=== PATIENT | female | born 1940 | race Caucasian/White ===

== ENCOUNTER → 2017-08-16 08:15 | Outpatient (CLI) | payer MEDICARE, SELFPAY ==
--- NOTE | 2017-08-16 08:25 | RAD_ITS ---
STUDY: X-RAY - ESOPHAGUS (BARIUM SWALLOW) WITH FLUOROSCOPY REASON FOR EXAM: Female, 77 years old. Gastroesophageal reflux disease. TECHNIQUE: 24 view(s) of the esophagus were obtained following swallowing of barium. FLUOROSCOPY TIME (if supplied): (0:40) minutes/seconds COMPARISON: None. FINDINGS: There is no demonstrated esophageal foreign body. Mild narrowing of the distal portion of the esophagus. Normal gastroesophageal junction, without a demonstrated hiatal hernia. The 12 mm tablet of barium is trapped at the gastroesophageal junction. There is atherosclerotic calcification of the aortic arch with tortuosity of the descending aorta. Normal visualized pulmonary parenchyma. There are diffuse degenerative changes of the visualized thoracic spine. RAD/Esophagus Only IMPRESSION: Narrowing of the distal portion of the esophagus just proximal to the gastroesophageal junction. The 12 mm tablet of barium is trapped at the gastroesophageal junction. Electronically Signed: Rogelio Oleary MD at 10:45 EDT Tel [phone], Service support ,
== END ==
PROVIDERS: Family Provider Internal Medicine; PCP Internal Medicine; Visit Provider Internal Medicine Gastroenterology
DX: K21.9 Gastro-esophageal reflux disease without esophagitis (principal)
CPT/HCPCS: 74220

== ENCOUNTER → 2017-08-30 07:23 | Outpatient (CLI) | payer MEDICARE, SELFPAY ==
--- NOTE | 2017-08-30 07:00 | MRI_ITS ---
STUDY: MRI LUMBAR SPINE WITHOUT CONTRAST REASON FOR EXAM: Female, 77 years old. Low-back pain and leg pain. TECHNIQUE: Standardized fat and water weighted pulse sequences were obtained in the sagittal and axial planes. COMPARISON: MRI of the lumbar spine dated March 13, 2010. FINDINGS: T12-L1: Normal endplates. Normal disc height, signal and morphology. Normal bilateral facet joints. Normal central canal and bilateral lateral recesses. Normal bilateral intervertebral neural foramina. Normal lumbar lordosis. There is no substantial scoliosis. Normal conus medullaris that terminates at the T12-L1 level. L1-2: There is mild annular disk bulge and osteophyte complex. There is moderate degenerative arthropathy of the facet joints. Bilateral neuroforamina are narrowed without MR evidence for nerve impingement. There is no significant central canal stenosis. L2-3: There is mild annular disk bulge and large osteophyte complex. There is moderate degenerative arthropathy of the RIGHT-sided facet joint and mild degenerative arthropathy of the LEFT-sided facet joint. Bilateral neuroforamina are narrowed without MR evidence for nerve impingement. There is no significant central canal stenosis. L3-4: There is moderate narrowing of the disc. There is annular disc bulge and osteophyte complex. There is moderate degenerative arthropathy of facet joints. Neural foramina are bilaterally narrowed without evidence for nerve impingement. L4-5: There is severe narrowing of the disc. There is a osteophyte complex. There is mild degenerative arthropathy of facet joints. Neural foramina are mildly narrowed without evidence for nerve impingement. L5-S1: There is narrowing of the disc. There is a disc bulge and osteophyte complex. There is mild degenerative arthropathy of facet joints. Neural foramina are narrowed without evidence for nerve impingement. Normal visualized sacral ala. Normal visualized paraspinous soft tissue structures. There are bilateral renal cysts. MRI/Spine Lumbar (Routine) IMPRESSION: Moderately severe multilevel degenerative disc disease and degenerative arthropathy of the lumbar spine with neural foraminal narrowing as described. Appearance is similar to the previous MRI. Electronically Signed: Rosi Valdez MD at 11:36 EDT , Service support ,
--- NOTE | 2017-08-30 07:23 | DT_ITS ---
This patient was seen during an EMR downtime August 29, 2017 - September 05, 2017. This patient may have a combination of paper and electronic documentation or all paper documentation. All documentation is viewable within the e-chart portion of [facility] for each patient visit.
== END ==
PROVIDERS: Family Provider Internal Medicine; PCP Internal Medicine; Visit Provider Anesthesiology Pain Medicine
DX: M54.9 Dorsalgia, unspecified (principal); M79.606 Pain in leg, unspecified
CPT/HCPCS: 72148

== ENCOUNTER → 2017-10-26 13:17 | Outpatient (CLI) | payer MEDICARE, SELFPAY ==
--- NOTE | 2017-10-26 13:22 | RAD_ITS ---
STUDY: X-RAY - CERVICAL SPINE REASON FOR EXAM: Female, 77 years old. Neck pain TECHNIQUE: 3 view(s) of the cervical spine were obtained. 07/25/2012 FINDINGS: Normal anterior atlantoaxial articulation. Normal odontoid process. There is straightening of the normal cervical lordosis. There is multi-level endplate spondylosis. There is multi-level degenerative disc disease with multilevel disc space narrowing. The soft tissue structures are unremarkable. There is no demonstrated fracture of the cervical spine. RAD/Cerv Spine 2 or 3 Views IMPRESSION: Degenerative changes which have progressed since 07/25/2012. No definite acute abnormality. Electronically Signed: Filiberto Mackey MD at 20:02 EDT , Service support ,
== END ==
PROVIDERS: Family Provider Internal Medicine; PCP Internal Medicine; Visit Provider Anesthesiology Pain Medicine
DX: M54.2 Cervicalgia (principal)
CPT/HCPCS: 72040

== ENCOUNTER → 2017-10-27 12:54 | Outpatient (CLI) | payer MEDICARE, SELFPAY | PROVIDERS: Visit Provider Internal Medicine Pulmonary Disease | DX: R05 Cough (principal) ==

== ENCOUNTER → 2017-12-12 11:19 | Outpatient (CLI) | payer MEDICARE, SELFPAY ==
--- NOTE | 2017-12-12 07:55 | PET_ITS ---
EXAMINATION: FDG PET CT INDICATIONS: A 77-year-old female with reported history of carcinoma of the breast presenting for restaging examination and evaluation of esophageal mass formation. COMPARISON EXAMINATION: None available. INDEX LESION SIZE SUV INTERPRETATION Distal esophagus, gastroesophageal junction 12.2 mm (frame 149) 1.9 Quantitative criteria for viable neoplasm are not fulfilled, histopathologic investigation may be indicated TECHNIQUE: Following the intravenous administration of 13.66 mCi of F-18 deoxyglucose via the right hand, multiplanar image acquisitions of the neck, chest, abdomen and pelvis to level of mid thigh, obtained at one hour post radiopharmaceutical administration contemporaneously interpreted with the current CT of the neck, chest, abdomen and pelvis to level of mid thigh, dated 12/12/17 via coregistration reveal: SERUM GLUCOSE LEVEL: 104 mg/dl. HEIGHT: 65 inches. WEIGHT: 269 lbs. FINDINGS: 1. Focal increased glucose metabolism is defined in the region of the distal esophagus, gastroesophageal junction generating a calculated maximum standard uptake value of 1.9. The maximal axial diameter of the corresponding metabolic abnormality on review of CT of the thorax dated 12/12/17 is 12.2 mm (AP). 2. Normal physiologic distribution of the radiopharmaceutical is apparent in the hepatic (4.6) and splenic parenchyma, both renal units, bladder and visualized intestinal tract. There is symmetric and preserved glucose metabolism noted in the visualized portion of the frontal, occipital, temporal and parietal lobes of the cerebral cortex, as well as cerebral hemispheres and basal ganglia. Diffuse intestinal tract activity is noted throughout all four quadrants of the abdominal-pelvic retroperitoneum, mesentery consistent with normal physiologic distribution of the radiopharmaceutical. Prominent glucose concentration is observed in the ascending and descending thoracic, as well as abdominal aorta. There is an increase in FDG concentration noted at the level of the laryngeal structures symmetrically apparent in the true-false vocal cords extending to the arytenoid cartilage and cricopharyngeus musculature most consistent with physiologic distribution of the radiopharmaceutical. Symmetric posterior cervical paravertebral muscle tension artifact is defined. Pertinent CT findings are as follows. CHEST: Bilateral axillary subcentimeter soft tissue densities demonstrate no evidence of increased glucose metabolism. Surgical clip placement appears evident in the left anterior chest wall, breast. Atherosclerotic calcification is defined in the thoracic aorta. The maximal axial diameter of the ascending thoracic aorta is 43.1 mm. Coronary arterial calcification is demonstrated. Mediastinal soft tissue densities are non-glucose avid. A partially-cavitated parenchymal density noted in the left lower posterior lung field demonstrates no evidence of quantitatively significant enhanced glucose metabolism. ABDOMEN AND PELVIS: The gallbladder is surgically absent. Atherosclerotic calcification is defined in the abdominal aorta without evidence of dilatation, aneurysm formation. Pelvic arterial calcification is observed. Right-left inguinal soft tissue densities are ametabolic. Postsurgical changes appear evident in the anterior pelvic wall. Exophytic cyst formation is defined in the bilateral kidneys, the largest of which demonstrates a maximal axial diameter of 27.8 mm (AP). SKELETAL: Degenerative changes defined in the cervical, thoracic and lumbar spine demonstrate no evidence for glucose hypermetabolism. PET/PET/CT Tumor Base -Thigh Init IMPRESSION: 1. Increased glucose concentration observed at the level of the distal esophagus, gastroesophageal junction does not fulfill quantitative criteria for viable neoplasm with single-point technique. If the patient demonstrates an intermediate to high pretest probability of neoplasm, histopathologic analysis is recommended. 2. Anatomic stability may be ensured in the ametabolic partially-cavitated noncalcified parenchymal density left lower posterior hemithorax pulmonary parenchyma, left lower lobe with repeat CT of the thorax in six months. (Joanne, Seminars in Thoracic and Cardiovascular Surgery 14:292, 2002). 3. Prominent glucose concentration observed in the ascending and descending thoracic, as well as abdominal aorta is commensurate with activated leukocytes associated with atherosclerotic plaque formation. (Candace gil al, Clinical Nuclear Medicine 29:93, 2004). Electronic Signature Shane Govea D.O. Electronically Signed: Shane Govea DO at 8:10 EDT Tel , Service support ,
== END ==
PROVIDERS: Family Provider Internal Medicine; PCP Internal Medicine; Visit Provider Internal Medicine Pulmonary Disease
DX: R91.1 Solitary pulmonary nodule (principal); Z85.3 Personal history of malignant neoplasm of breast
CPT/HCPCS: 78815; A9552; A4216

== ENCOUNTER → 2018-01-02 11:47 | Outpatient (CLI) | payer MEDICARE, SELFPAY ==
[2018-01-02 14:03] LABS: Erythrocyte Sedimentation Rate 65 mm/hr (0-30)
[2018-01-02 14:16] LABS: CRP, High Sensitivity Cardiac 5.02 mg/L; Rheumatoid Factor < 10.0 IU/mL (<15)
[2018-01-03 14:36] LABS: ANTINUCLEAR ANTIBODIES DIRECT Negative (Negative)
[2018-01-04 07:35] LABS: Angiotensin Convert Enzyme 30 U/L (14-82)
== END ==
PROVIDERS: Family Provider Internal Medicine; PCP Internal Medicine; Referring Provider Internal Medicine Pulmonary Disease; Visit Provider Internal Medicine Pulmonary Disease
DX: E78.5 Hyperlipidemia, unspecified (principal); R05 Cough
CPT/HCPCS: 36415; 82164; 85652; 86038; 86141; 86431

== ENCOUNTER 2018-04-20 22:50 | Inpatient (IN) | payer MEDICARE, SELFPAY ==
[2018-04-20 22:52] VITALS: BP 115/64; PULSE 119; RESP 16; TEMP 37; O2SAT 95; BMI 43.2
[2018-04-20 23:38] LABS: Hematocrit 39.1 % (37-47); Hemoglobin 12.4 g/dl (12.0-15.0); Mean Corp Hgb Conc 31.7 g/gl (32-36); Mean Corpuscular Hgb 28.5 pg (27.0-32.0); Mean Corpuscular Volume 89.9 fL (81-99); Mean Platelet Vol. 8.7 fl (6.2-12.0); POSITIVE COUNT YES; POSITIVE DIFFERENTIAL YES; POSITIVE MORPHOLOGY YES; Platelet Count 152 K/mm3 (150-450); RBC Distribution Width CV 14.6 % (11.6-14.6); RBC Distribution Width SD 47.3 fl (35.1-43.9); Red Blood Count 4.35 M/mm3 (4.2-5.4)
[2018-04-20 23:39] LABS: Differential Indicated MANUAL DIFF
[2018-04-20 23:44] LABS: Prothrombin Time (Protime)PT. 35.3 SECONDS (11.7-14.9)
[2018-04-20 23:49] LABS: International Normalized Ratio 3.5
[2018-04-20 23:55] LABS: Anion Gap 14 (5-15); BUN 37 mg/dL (7-18); BUN/Creat Ratio 15.8 RATIO (10-20); Calcium,Total 8.8 mg/dL (8.5-10.1); Chloride 102 mmol/L (98-107); Creatinine, Serum 2.34 mg/dL (0.55-1.02); EST Glomerular Filtration Rate 22 mL/min (>60); Est Glom Filt Rate - Afr Amer 26 mL/min (>60); Estimated Creatinine Clearance 18.69 ml/min; Glucose 71 mg/dL (74-106); Sodium Level 137 mmol/L (136-145)
[2018-04-21] VITALS (62 sets, daily range): BP systolic 72–138; BP diastolic 42–97; PULSE 90–112; RESP 12–93; TEMP 36.4–37.4; O2SAT 93–100; BMI 45.7
[2018-04-21] MEDS: Ondansetron 4 MG/2 ML Vial IV (00:05)
[2018-04-21] MEDS: Morphine 4 MG/ML Syringe IV (00:06)
[2018-04-21 00:09] LABS: Eosinophil 1 % (0-5); Lymphocyte 2 % (19-41); Metamyelocyte 3 % (0-1); Monocyte 2 % (0-10); Neutrophil-Band 18 % (0-5); Neutrophil-Segmented 74 % (47-70); Platelet Estimate ADEQUATE (ADEQ); Red Cell Morphology NORM C+C NORMAL (NORM C&C); Total Cells Counted 100 (MANUAL DIFF); Vacuolated Cells 3+
[2018-04-21 00:11] LABS: Absolute Neutrophil Count 3.7 X10^3/uL (2.0-7.7); Neutrophil # 3.68 X10^3/uL (2.7-7.7)
--- NOTE | 2018-04-21 01:30 | ED.VISSUMM ---
- ER Visit Summary Date of Service: 04/21/18 Chief Complaint: Back pain History of Present Illness: The patient is a [address] Anguiano. She reports she has back pain that began yesterday. States that it is an intermittent pain that lasts hours. States sharp pain is 10 out of 10 worsened through 10 currently. Is worsened by nothing including movement. She states that it was relieved by tramadol and sitting in the recliner. No relation to her legs. No numbness or weakness in her legs. No problems with her bowels or her bladder. No groin numbness. Patient denies any fever or chills. She reports she is been nauseated and vomited multiple times since yesterday. States that she is vomited approximately 8 times. No blood or emesis. She denies any abdominal pain. No diarrhea. Her last bowel movement was today. She denies any blood in her stools or black tarry stools. She does report that she has had hematuria and frequency for the past 2 weeks. Physical Examination: Vitals: Stable. Afebrile. General: Well-nourished and well-developed. Head: Normocephalic atraumatic. Neck: Supple, no lymphadenopathy. No JVD. Nontender. Cardiovascular: Regular tachycardic rhythm. No murmurs. Respiratory: No respiratory distress. Clear to auscultation bilaterally. Abdominal: Soft, nontender, nondistended, normal bowel sounds. No guarding, rebound, or peritoneal signs. Back: Nontender. No CVA tenderness. Extremities: Nontender, no edema. Skin: Normal color, no rash. Neurologic: Alert and oriented ?3. Cranial nerves II through XII are intact. Normal strength and sensation. Psych: Normal affect. Test Results: CBC is remarkable for a white count of 5.0 with 74 segmented neutrophils, 18 bands, 2 metamyelocytes, and 2 lymphocytes. Chem-7 is more for BUN of 37 and creatinine 2.34. Glucose is 71. Creatinine has ranged between 1.091.65 in the past. The last was in February 2017 and that time it was 1.09. INR is 3.5. CT flank shows a 6 x 3 mm proximal left ureteral stone with mild hydronephrosis/hydroureter. Chest x-ray shows atelectasis at the left base. Lactic acid is 3.0. Urinalysis shows leukocytes, nitrites, blood, 10-25 white blood cells, 5-10 red blood cells, and 2+ bacteria. Emergency Department Course and Treatment: Patient was given a dose of morphine and Zofran IV. She is resting comfortably. She was unable to produce a urine sample. We did straight catheter with no return of urine. A Sauceda catheter was placed. She was given a 30 cc per per kilo bolus of normal saline. This was 3.5 L. Patient is on BiPAP at night at home. She was placed on BiPAP here and a chest x-ray is obtained. This does not show failure. Patient did not produce a urine sample until approximately 3 L of fluid were in. She was given a dose of Rocephin IV prior to obtaining the urine. When this returned and shows infection she was given a second gram of Rocephin IV. She did not respond to the IV fluids and remained hypotensive. She had a right internal jugular central line placed. She tolerated this well. Chest x-ray shows good placement without pneumothorax. Treatment Plan: The patient was discussed with Dr. Estes and Dr. Willis. She will be admitted to the ICU for further evaluation and treatment. Disposition: Admitted in critical condition. Impression: 1. Left ureterolithiasis. 2. Pyelonephritis. 3. Acute renal insufficiency. 4. Septic shock. 5. Critical care time 45 minutes. 6. Right IJ central line placed by ED physician. 7. Coumadin coagulopathy. Procedure: The patient was prepped and draped in the usual sterile fashion. I wore a cap, gown, and mask. The right IJ was accessed under direct visualization with the site right. The vessel was accessed on the first attempt. The central line was then placed with Seldinger technique. Normal blood return and flush in all 3 ports. The patient tolerated it well. This note was generated with [employer] dictation software. It may contain incorrect words, spelling, and punctuation that were not noted in review of the chart prior to signing ED Disposition - Plan for ED Patient: Chief Complaint: Back Referrals: Ai Anguiano MD [Primary Care Provider] -
[2018-04-21] MEDS: 0.9% Normal Saline 1,000 ML 999 ML IV ×4 (01:36→02:48)
[2018-04-21] MEDS: Dextrose 50%-Water 25 GM/50 ML DISP.SYRIN IV (01:53)
--- NOTE | 2018-04-21 01:54 | ED.RN ---
[id number] AWARE OF PT HAVING NO URINE IN HER BLADDER FOR SPECIMEN AND bladder scanned for 14cc.orders given.
--- NOTE | 2018-04-21 01:54 | ED.RN ---
md aware of blood sugar of 71,orange juice given.md at bedside and request repeat of blood sugar since it was a bmp with blood sugar.ordered d50. and given.pt arousable and oriented.pt being placed on bipap--md concerned about over load of fluid since hydrating pt with normal saline.
[2018-04-21 01:55] LABS: Bedside Glucose 72 mg/dL (70-110)
--- NOTE | 2018-04-21 01:58 | ED.RN ---
DR DIAS NOTIFIED OF LACTIC RESULTS
--- NOTE | 2018-04-21 02:00 | RAD_ITS ---
HISTORY: SEPSIS SOB history of breast cancer. EXAM: XR Chest 1 View: Portable COMPARISON: 03/18/2017 FINDINGS: EKG leads in place. Mild cardiomegaly. Left basilar small infiltrate or atelectasis. Coarse bronchovascular markings. No vascular congestion or significant pleural effusion. No pneumothorax. RAD/Chest 1 View (Portable) IMPRESSION: 1. Left basilar small infiltrate or atelectasis. 2. Mild cardiomegaly. No CHF seen. at 0244 Reported and signed by: Silviano Mcdonough MD Electronically Signed: Silviano Mcdonough, at 2:43 EST Tel , Service support ,
[2018-04-21] MEDS: Ceftriaxone 1 GM/50 ML BAG IV ×2 (02:17→03:56)
[2018-04-21 02:46] LABS: Bedside Glucose 140 mg/dL (70-110)
[2018-04-21 03:04] LABS: Mucous, Urine 0 SEEN /hpf (<or=2+)
[2018-04-21 03:22] LABS: Color, Urine Yellow (Yellow); Glucose, Dipstick Normal (Normal); Ketone-Dipstick 5 mg/dl (Negative); Leukocyte Esterase-Dipstick 500 /ul (Negative); Nitrite-Dipstick Positive (Negative); Occult Blood-Urine 250 /ul (Negative); Protein-Dipstick 100 mg/dl (Negative); Specific Gravity, Urine 1.025 (1.002-1.030); Urine Clarity Cloudy (Clear); Urine Urobilinogen 4 mg/dl (Normal)
[2018-04-21 03:31] LABS: Urine Bilirubin Dipstick 3 mg/dL (Negative)
[2018-04-21 03:33] LABS: Amorphous Sediment 3+; Bacteria 2+ /hpf (None Seen)
[2018-04-21 03:34] LABS: Red Blood Cells-Urine 5-10 SEEN /hpf (0-5); Squamous Epithelial Cells - UA 0-5 SEEN /hpf (5-10); White Blood Cells 10-25 SEEN /hpf (0-5)
--- NOTE | 2018-04-21 03:48 | RAD_ITS ---
HISTORY: CENTRAL LINE PLACEMENT EXAM:XR Chest 1 View: 0402 hrs. COMPARISON: 0220 hours FINDINGS: EKG leads in place. Right jugular central venous line with the line tip in region of the superior vena cava. No pneumothorax. Cardiomegaly, unchanged. Stable prominence of the central bronchovascular markings. Left basilar small atelectasis or infiltrate, unchanged. No pleural effusion. RAD/CXR for Line Placement IMPRESSION: 1. Good position of the right jugular central venous line. No pneumothorax. 2. Chest is otherwise unchanged. at 0420 Reported and signed by: Silviano Mcdonough MD Electronically Signed: Silviano Mcdonough, at 4:19 EST Tel , Service support ,
--- NOTE | 2018-04-21 04:11 | ED.RN ---
per dr young cemtral line is in correct place and okay to use.levophed drip hooked up to white port of central line.81/71 mean of 77 per order maintain levophed at 5mcg.
--- NOTE | 2018-04-21 04:25 | PCM.HP.STD ---
Problem List (1) Septic shock Status: Acute (2) UTI Status: Acute (3) Left proximal ureteral stone Status: Acute (4) Status post total left knee replacement Status: Chronic (5) Wound infection after surgery Status: Resolved (6) Hematoma following procedure Status: Resolved (7) Status post total hip replacement, left Status: Chronic (8) Obesity Status: Chronic (9) Osteoarthritis Status: Chronic (10) Hyperlipidemia Status: Chronic (11) Open left ankle fracture Status: Acute (12) Hypertension Status: Chronic (13) Diabetes mellitus type 2 in obese Status: Chronic (14) Diabetes mellitus Status: Chronic (15) Fall Status: Acute (16) Pulmonary embolism Status: Chronic (17) Metastatic breast cancer Status: Chronic (18) Restless leg syndrome Status: Chronic (19) Hypercoagulable state Status: Chronic (20) Hypothyroidism Status: Chronic (21) Obstructive sleep apnea Status: Chronic (22) Femur fracture, left Status: Resolved (23) History of pulmonary embolism Status: Chronic History of Present Illness Date of Admission: 04/21/18 Chief Complaint: Back pain for 2 days The patient is a 77 year old F with multiple comorbidities as listed below came to ED with lower back pain for last 2 days. She describes her pain on both side, sharp 10/10 intensity and intermittent. She also complains of burning micturition, increased frequency and urination and mild hematuria. Denies any fever or chills but she vomited multiple times yesterday. No abdominal pain [] Denies any previous history of kidney stone. In ED, she was found hypotensive, tachycardic and tachypnea respiratory rate 21. Blood pressure remained low despite 3 L of bolus and therefore started on IV Levophed after right IJ central line placement. Chest x-ray shows tip of central line catheter in right atrium. Earlier, CT abdomen reported 6 x 3 mm proximal left ureteral stone with mild hydronephrosis and hydroureter proximal to the stone. No hydronephrotic. About 20 mm pleural-based metastasis within left lower lobe posteriorly. She has history of severe breast. She is being admitted in ICU for septic shock secondary to UTI 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, left (Chronic) Obesity (Chronic) Osteoarthritis (Chronic) Hyperlipidemia (Chronic) Hypertension (Chronic) Diabetes mellitus type 2 in obese (Chronic) Diabetes mellitus (Chronic) Pulmonary embolism (Chronic) Metastatic breast cancer (Chronic) Restless leg syndrome (Chronic) Hypercoagulable state (Chronic) Hypothyroidism (Chronic) Obstructive sleep apnea (Chronic) History of pulmonary embolism (Chronic) Allergies acetaminophen [From Vicodin] Allergy (Verified 04/20/18 22:56) Unknown codeine Allergy (Verified 04/20/18 22:56) Unknown hydrocodone bitartrate [From Vicodin] Allergy (Verified 04/20/18 22:56) Unknown Home Medications: Ambulatory Orders Medication Instructions Recorded Levothyroxine [Synthroid] 112 mcg PO DAILY 01/24/14 Simvastatin [Zocor] 40 mg PO QHS 01/24/14 Anastrozole [Arimidex] 1 mg PO DAILY 03/17/15 Spironolactone [Aldactone] 25 mg PO DAILY #30 tablet 07/08/15 Furosemide [Lasix] 40 mg PO DAILY PRN 05/07/16 Montelukast [Singulair] 10 mg PO DAILY 05/07/16 traZODone [Desyrel] 150 mg PO QHS 05/07/16 Clonazepam [Klonopin] 1 mg PO DAILY PRN PRN #30 tablet 06/09/16 Potassium Chloride [K-Dur] 30 meq PO DAILYCM tablet 06/09/16 Fluticasone 0.05% [Flonase Nasal 1 spray NASAL DAILY 03/18/17 [place]] Fluticasone Propionate [Flovent 12 gm IH BID 03/18/17 Hfa] traMADol [Ultram (G)] 50 mg PO Q6H PRN PRN 03/18/17 Bupropion HCl [Wellbutrin Sr] mg PO DAILY 04/20/18 Warfarin [Coumadin ([facility])] 2.5 mg PO 04/20/18 Warfarin [Coumadin] 3 mg PO DAILY@1700 04/20/18 Surgical History: cholecystectomy, tonsillectomy, - - Bilateral knee arthroplasty, Bilateral hip arthroplasty, ORIF right ankle fracture, Tubal ligation. Psychiatric History: No pertinent psych hx [employer] History: No pertinent [employer] history Smoking Status: Never smoker - *Family History Maternal History Items: No pertinent history Paternal History Items: Heart Disease Review of Systems Constitutional: Reports: Weakness, Fatigue - Lethargic HEENT: Denies: Head Aches, Sinus Congestion, Sinus Drainage Cardiovascular: Denies: Chest Pain, Palpitations Respiratory: Reports: Shortness of Breath. Denies: Cough, Shortness of breath at rest, Sputum production Gastrointestinal: Reports: Nausea, Vomiting. Denies: Abdominal Pain Genitourinary: Reports: Dysuria, Frequency, Hematuria, Incontinence Musculoskeletal: Reports: Back Pain. Denies: Joint Pain, Joint Tenderness Skin: Denies: Rash, Wounds Neurological: Reports: Balance problems. Denies: Focal weakness, Numbness, Tingling Psychiatric: Denies: Anxiety, Depression, Homicidal Ideations, Suicidal Ideations Hematologic/ Lymphatic: Denies: Easy Bruising, Easy Bleeding Unable to obtain accurate/complete ROS d/t: Patient is on BiPAP there is history of obstructive sleep apnea VTE Information - Inpt Only VTE Present on Admission: No VTE Mechan Device Prophylaxis: None Reason prophylaxis not ordered:: Medical Contraindication - INR supratherapeutic 3.5 Patient Problems: Active and Suspected Problems Septic shock (Acute) UTI (Acute) Left proximal ureteral stone (Acute) - Physical Exam General: Oriented x3, Cooperative, Lethargic HEENT: Atraumatic, PERRLA, EOMI, Normocephalic Oral: - - BiPAP Neck: Supple, No JVD, Negative Carotid Bruits Lungs: Clear to auscultation, No rhonchi, No wheeze, No rales, Diminished - Air entry is diminished bilaterally Cardiovascular: Regular rate, No murmurs Abdomen: Bowel Sounds Present, Soft, Non Tender, Non-Distended Extremities: Capillary Refill Less than 3 Seconds, Edema Skin: No rashes, No breakdown Musculoskeletal: No Tenderness to Palpation of Joints or Extremities, Arthritic Changes, Muscle Wasting, - - Bilateral TKR scars present. Left THR Neurological: Cranial nerves II-XII grossly intact, Deep Tendon Reflexes 2+/4 and Symmetrical, Neuro grossly intact Psych/Mental Status: Normal Affect, Appropriate Vital Signs Temp Pulse Resp BP Pulse Ox 98.7 F 100 20 H 81/71 L 97 04/21/18 04:14 04/21/18 04:14 04/21/18 04:14 04/21/18 04:14 04/21/18 04:14 Oxygen Flow Rate (L/min) 30 Oxygen Delivery Method Bi-pap Weight: 260 lb Body Mass Index (BMI) 43.2 Finger Stick Blood Glucose 141 Laboratory Tests Past 24 Hrs 04/20/18 04/20/18 04/20/18 23:30 23:30 23:30 WBC 5.0 RBC 4.35 Hgb 12.4 Hct 39.1 MCV 89.9 MCH 28.5 MCHC 31.7 L RDW 14.6 RDW Differential 47.3 H Plt Count 152 MPV 8.7 Neut % (Auto) Not Reportable Absolute Neuts (auto) 3.7 Absolute Lymphs (auto) 0.10 L Total Counted 100 Neutrophils % (Manual) 74 H Band Neutrophils % 18 H Lymphocytes % (Manual) 2 L Monocytes % (Manual) 2 Eosinophils % (Manual) 1 Metamyelocytes % 3 H Differential Comment 3+ Diff Path Review May foll Platelet Estimate ADEQUATE RBC Morphology NORM C+C PT 35.3 H INR 3.5 H* Sodium 137 Potassium 4.0 Chloride 102 Carbon Dioxide 21.0 Anion Gap 14 BUN 37 H Creatinine 2.34 H Estim Creat Clear Calc 18.69 Est GFR (MDRD) Af Amer 26 L Est GFR (MDRD) Non-Af 22 L BUN/Creatinine Ratio 15.8 Glucose 71 L Lactic Acid Calcium 8.8 Urine Color Urine Clarity Urine pH Ur Specific [place] Urine Protein Urine Glucose (UA) Urine Ketones Urine Occult Blood Urine Nitrite Urine Bilirubin Urine Urobilinogen Ur Leukocyte Esterase Urine RBC Urine WBC Ur Squamous Epith Cells Amorphous Sediment Urine Bacteria Urine Mucus 04/21/18 04/21/18 01:10 03:00 WBC RBC Hgb Hct MCV MCH MCHC RDW RDW Differential Plt Count MPV Neut % (Auto) Absolute Neuts (auto) Absolute Lymphs (auto) Total Counted Neutrophils % (Manual) Band Neutrophils % Lymphocytes % (Manual) Monocytes % (Manual) Eosinophils % (Manual) Metamyelocytes % Differential Comment Diff Path Review Platelet Estimate RBC Morphology PT INR Sodium Potassium Chloride Carbon Dioxide Anion Gap BUN Creatinine Estim Creat Clear Calc Est GFR (MDRD) Af Amer Est GFR (MDRD) Non-Af BUN/Creatinine Ratio Glucose Lactic Acid 3.0 H Calcium Urine Color Yellow Urine Clarity Cloudy Urine pH 5.0 Ur Specific [place] 1.025 Urine Protein 100 H Urine Glucose (UA) Normal Urine Ketones 5 H Urine Occult Blood 250 H Urine Nitrite Positive H Urine Bilirubin 3 H Urine Urobilinogen 4 H Ur Leukocyte Esterase 500 H Urine RBC 5-10 SEEN Urine WBC 10-25 SEEN Ur Squamous Epith Cells 0-5 SEEN Amorphous Sediment 3+ Urine Bacteria 2+ Urine Mucus 0 SEEN POC Glucose 04/21/18 04/21/18 02:27 01:49 POC Glucose 140 H 72 Assessment/Plan All Active Problems Septic shock (Acute) UTI (Acute) Left proximal ureteral stone (Acute) Wound infection after surgery (Resolved) Hematoma following procedure (Resolved) Open left ankle fracture (Acute) Fall (Acute) Femur fracture, left (Resolved) The patient is a 77 year old F with multiple comorbidities as listed below came to ED with lower back pain for last 2 days. She describes her pain on both side, sharp 10/10 intensity and intermittent. She also complains of burning micturition, increased frequency and urination and mild hematuria. Denies any fever or chills but she vomited multiple times yesterday. No abdominal pain [] Denies any previous history of kidney stone. In ED, she was found hypotensive, tachycardic and tachypnea respiratory rate 21. Blood pressure remained low despite 3 L of bolus and therefore started on IV Levophed after right IJ central line placement. Chest x-ray shows tip of central line catheter in right atrium. Labs shows increase in creatinine 2.34, BUN 37 from her baseline creatinine 1.02- 1.39 and BUN 20-24. Lactic acid 3.0. UA is positive of pyuria, leukocyte esterase and nitrite and mild hematuria Earlier, CT abdomen reported 6 x 3 mm proximal left ureteral stone with mild hydronephrosis and hydroureter proximal to the stone. No hydronephrotic. About 20 mm pleural-based metastasis within left lower lobe posteriorly. She has history of severe breast. She is being admitted in ICU for septic shock secondary to UTI. 1 septic shock secondary to UTI from right proximal ureteric stone: Patient is being admitted in ICU. Patient is started on IV Levophed to maintain blood pressure, keep map more than 65. IV fluid normal saline. Telecommunications Project Manager has been consulted. Blood cultures x2, urine culture are sent from ER. Septic shock protocol. 2. Left ureteric stone with proximal hydronephrosis and hydroureter: Urologist, Dr. Estes who has been consulted by ER Dr. Oron[place]. Dr. Shearer wanted patient hemodynamically stable before the procedure. IV antibiotic ceftriaxone 2 g daily. 3. Acute kidney injury on CKD stage III, from obstructive uropathy: Monitor intake and output. Follow kidney function, electrolytes. If it worsens, can consult nephrology. 4. Obstructive sleep apnea, morbid obesity: Patient uses BiPAP at night. 5. Diabetes mellitus type 2 in obese, diet controlled: Blood glucose in BMP 71. Accu-Chek before meals and at bedtime and cover with NovoLog sliding scale. A1c tomorrow a.m. 6. Other comorbidities include metastatic breast cancer to lung, history of pulmonary embolism, degenerative joint disease, dyslipidemia, restless leg syndrome and recurrent fall: Multiple comorbidities complicates the present care and expect difficult and delay recovery. Home medication reconciliation done. Admission, plan of care and management discussed with the patient. This note was generated with [employer] dictation software. Every effort was made to ensure accuracy, however computerized brim stitcher mistakes may persist. Active Medications Norepinephrine Bitartrate 8 mg (/ Dextrose) 258 mls @ 9.68 mls/hr IV .[id number] PASCUAL Last Admin: 04/21/18 03:57 Dose: 9.68 mls/hr Clinical Impression(s) from Imaging Studies Chest X-Ray 04/21/18 02:00 IMPRESSION: 1. Left basilar small infiltrate or atelectasis. 2. Mild cardiomegaly. No CHF seen. Chest X-Ray 04/21/18 03:48 IMPRESSION: 1. Good position of the right jugular central venous line. No pneumothorax. 2. Chest is otherwise unchanged. Abdomen/Pelvis CT 04/21/18 23:20 IMPRESSION: 1. 6 x 3 mm proximal left ureteral stone with mild hydronephrosis and hydroureter proximal to the stone. 2. No hydronephrosis on the right. 3. Possible 20 mm pleural-based metastasis within the left lower lobe, posteriorly. 4. Chronic findings include cardiomegaly and diverticulosis coli. 5. Lumbar spine degenerative spondylosis and advanced multilevel facet joint arthritis. Individualized dose optimization techniques were used for this CT. Code Visit Inpatient E&M: 79901 Init Hosp L3
[2018-04-21 05:02] LABS: Prothrombin Time (Protime)PT. 37.7 SECONDS (11.7-14.9)
[2018-04-21 05:03] LABS: Partial Thromboplast Time 64.5 Seconds (24.1-36.2)
[2018-04-21 05:12] LABS: Reflex Lactate? Y
[2018-04-21 05:18] LABS: International Normalized Ratio 3.8
--- NOTE | 2018-04-21 05:20 | ED.RN ---
[address] DIAS AWARE THAT AFTER PT SAT ON THE BSC FOR A PERIOD OF TIME,UNABLE TO OBTAIN URINE SPECIMEN AND WITH MUCH DIFFICULTY GOT THE PT BACK IN TO THE BED.ORDER RECIEVED FOR STRAIGHT CATH.
[2018-04-21 05:37] LABS: T4 Free Direct 1.76 ng/dL (0.76-1.46); Thyroid Stim Hormone (TSH) 1.95 uIU/mL (0.358-3.74)
[2018-04-21] MEDS: 0.9% Normal Saline 1,000 ML 150 ML IV ×3 (06:23→21:30)
[2018-04-21] MEDS: Levothyroxine 112 MCG Tablet PO (06:23)
[2018-04-21 06:45] LABS: Lactic Acid 1.7 mmol/L (0.4-2.0)
[2018-04-21 06:51] LABS: Bedside Glucose 140 mg/dL (70-110)
[2018-04-21] MEDS: Budesonide Respules 0.5 MG/2 ML AMPUL.NEB. INHALATION ×2 (06:54→19:56)
--- NOTE | 2018-04-21 07:04 | PCM.CONS.U ---
Reason for Consult Date of Consultation: 04/21/18 Reason for Consultation: stone with sepsis History of Present Illness: The patient is a 77 year old F with multiple comorbidities as listed below came to ED with lower back pain for last 2 days. She describes her pain on both side, sharp 10/10 intensity and intermittent. She also complains of burning micturition, increased frequency and urination and mild hematuria. Denies any fever or chills but she vomited multiple times yesterday Denies any previous history of kidney stone. she was found hypotensive, tachycardic and tachypnea respiratory rate 21. Blood pressure remained low despite 3 L of bolus and therefore started on IV Levophed after right IJ central line placement. Chest x-ray shows tip of central line catheter in right atrium. Earlier, CT abdomen reported 6 x 3 mm proximal LEFT ureteral stone with mild hydronephrosis and hydroureter proximal to the stone. No hydronephrotic. About 20 mm pleural-based metastasis within left lower lobe posteriorly. She has history of severe breast. She is being admitted in ICU for septic shock secondary to UTI 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, left (Chronic) Obesity (Chronic) Osteoarthritis (Chronic) Hyperlipidemia (Chronic) Hypertension (Chronic) Diabetes mellitus type 2 in obese (Chronic) Diabetes mellitus (Chronic) Pulmonary embolism (Chronic) Metastatic breast cancer (Chronic) Restless leg syndrome (Chronic) Hypercoagulable state (Chronic) Hypothyroidism (Chronic) Obstructive sleep apnea (Chronic) History of pulmonary embolism (Chronic) Allergies acetaminophen [From Vicodin] Allergy (Verified 04/20/18 22:56) Unknown codeine Allergy (Verified 04/20/18 22:56) Unknown hydrocodone bitartrate [From Vicodin] Allergy (Verified 04/20/18 22:56) Unknown Home Medications: Ambulatory Orders Medication Instructions Recorded Levothyroxine [Synthroid] 112 mcg PO DAILY 01/24/14 Simvastatin [Zocor] 40 mg PO QHS 01/24/14 Anastrozole [Arimidex] 1 mg PO DAILY 03/17/15 Spironolactone [Aldactone] 25 mg PO DAILY #30 tablet 07/08/15 Furosemide [Lasix] 40 mg PO DAILY PRN 05/07/16 Montelukast [Singulair] 10 mg PO DAILY 05/07/16 traZODone [Desyrel] 150 mg PO QHS 05/07/16 Clonazepam [Klonopin] 1 mg PO DAILY PRN PRN #30 tablet 06/09/16 Potassium Chloride [K-Dur] 30 meq PO DAILYCM tablet 06/09/16 Fluticasone 0.05% [Flonase Nasal 1 spray NASAL DAILY 03/18/17 [place]] Fluticasone Propionate [Flovent 12 gm IH BID 03/18/17 Hfa] traMADol [Ultram (G)] 50 mg PO Q6H PRN PRN 03/18/17 Bupropion HCl [Wellbutrin Sr] mg PO DAILY 04/20/18 Warfarin [Coumadin ([facility])] 2.5 mg PO 04/20/18 Warfarin [Coumadin] 3 mg PO DAILY@1700 04/20/18 Surgical History: cholecystectomy, tonsillectomy, - - Bilateral knee arthroplasty, Bilateral hip arthroplasty, ORIF right ankle fracture, Tubal ligation. Psychiatric History: No pertinent psych hx [employer]LECT[employer] MECH[employer]IC History: No pertinent [employer] history Smoking Status: Never smoker - *Family History Maternal History Items: No pertinent history Paternal History Items: Heart Disease Review of Systems Constitutional: Reports: Chills, Fever HEENT: Denies: Head Aches, Sinus Congestion, Sinus Drainage Cardiovascular: Denies: Chest Pain, Palpitations Respiratory: Denies: Cough, Shortness of breath at rest, Sputum production Gastrointestinal: Denies: Abdominal Pain, Nausea, Vomiting Genitourinary: Denies: Dysuria Musculoskeletal: Denies: Joint Pain, Joint Tenderness Skin: Denies: Rash, Wounds Neurological: Denies: Numbness, Tingling, Focal weakness Psychiatric: Denies: Anxiety, Depression, Homicidal Ideations, Suicidal Ideations Hematologic/ Lymphatic: Denies: Easy Bruising, Easy Bleeding Physical Exam - Physical Exam Vital Signs Temp 99.3 F H 04/21/18 05:45 Pulse 97 04/21/18 07:00 Resp 16 04/21/18 06:52 BP 95/59 L 04/21/18 07:00 Pulse Ox 98 04/21/18 06:52 Intake & Output 04/19/18 04/20/18 04/21/18 23:59 23:59 23:59 Intake Total 144.5 / 144.5 Output Total 40 / 40 Balance 104.5 / 104.5 Weight: 117.934 kg 124.6 kg Intake: Oral 120 / 120 IV fluid/meds 24.5 / 24.5 Output: Urine 40 / 40 General: Alert, Oriented x3 HEENT: Atraumatic Oral: Moist Mucosa Neck: Supple Lungs: Normal air movement Cardiovascular: Regular rate Abdomen: Soft Rectal: Exam deferred Groin: No hernia Extremities: No clubbing, No cyanosis, No edema Skin: No rashes Lymphatic: No Cervical, Supraclavicular, or Inguinal Adenopathy Neurological: Cranial nerves II-XII grossly intact Psych/Mental Status: Normal Affect Laboratory Tests Past 24 Hrs 04/20/18 04/20/18 04/20/18 23:30 23:30 23:30 WBC 5.0 RBC 4.35 Hgb 12.4 Hct 39.1 MCV 89.9 MCH 28.5 MCHC 31.7 L RDW 14.6 RDW Differential 47.3 H Plt Count 152 MPV 8.7 Neut % (Auto) Not Reportable Absolute Neuts (auto) 3.7 Absolute Lymphs (auto) 0.10 L Total Counted 100 Neutrophils % (Manual) 74 H Band Neutrophils % 18 H Lymphocytes % (Manual) 2 L Monocytes % (Manual) 2 Eosinophils % (Manual) 1 Metamyelocytes % 3 H Differential Comment 3+ Diff Path Review May foll Platelet Estimate ADEQUATE RBC Morphology NORM C+C PT 35.3 H INR 3.5 H* APTT Sodium 137 Potassium 4.0 Chloride 102 Carbon Dioxide 21.0 Anion Gap 14 BUN 37 H Creatinine 2.34 H Estim Creat Clear Calc 18.69 Est GFR (MDRD) Af Amer 26 L Est GFR (MDRD) Non-Af 22 L BUN/Creatinine Ratio 15.8 Glucose 71 L Lactic Acid Calcium 8.8 TSH Free T4 Urine Color Urine Clarity Urine pH Ur Specific [place] Urine Protein Urine Glucose (UA) Urine Ketones Urine Occult Blood Urine Nitrite Urine Bilirubin Urine Urobilinogen Ur Leukocyte Esterase Urine RBC Urine WBC Ur Squamous Epith Cells Amorphous Sediment Urine Bacteria Urine Mucus 04/20/18 04/21/18 04/21/18 23:30 01:10 03:00 WBC RBC Hgb Hct MCV MCH MCHC RDW RDW Differential Plt Count MPV Neut % (Auto) Absolute Neuts (auto) Absolute Lymphs (auto) Total Counted Neutrophils % (Manual) Band Neutrophils % Lymphocytes % (Manual) Monocytes % (Manual) Eosinophils % (Manual) Metamyelocytes % Differential Comment Diff Path Review Platelet Estimate RBC Morphology PT INR APTT Sodium Potassium Chloride Carbon Dioxide Anion Gap BUN Creatinine Estim Creat Clear Calc Est GFR (MDRD) Af Amer Est GFR (MDRD) Non-Af BUN/Creatinine Ratio Glucose Lactic Acid 3.0 H Calcium TSH 1.95 Free T4 1.76 H Urine Color Yellow Urine Clarity Cloudy Urine pH 5.0 Ur Specific [place] 1.025 Urine Protein 100 H Urine Glucose (UA) Normal Urine Ketones 5 H Urine Occult Blood 250 H Urine Nitrite Positive H Urine Bilirubin 3 H Urine Urobilinogen 4 H Ur Leukocyte Esterase 500 H Urine RBC 5-10 SEEN Urine WBC 10-25 SEEN Ur Squamous Epith Cells 0-5 SEEN Amorphous Sediment 3+ Urine Bacteria 2+ Urine Mucus 0 SEEN 04/21/18 04/21/18 04:50 05:20 WBC RBC Hgb Hct MCV MCH MCHC RDW RDW Differential Plt Count MPV Neut % (Auto) Absolute Neuts (auto) Absolute Lymphs (auto) Total Counted Neutrophils % (Manual) Band Neutrophils % Lymphocytes % (Manual) Monocytes % (Manual) Eosinophils % (Manual) Metamyelocytes % Differential Comment Diff Path Review Platelet Estimate RBC Morphology PT 37.7 H INR 3.8 H* APTT 64.5 H Sodium Potassium Chloride Carbon Dioxide Anion Gap BUN Creatinine Estim Creat Clear Calc Est GFR (MDRD) Af Amer Est GFR (MDRD) Non-Af BUN/Creatinine Ratio Glucose Lactic Acid 1.7 Calcium TSH Free T4 Urine Color Urine Clarity Urine pH Ur Specific [place] Urine Protein Urine Glucose (UA) Urine Ketones Urine Occult Blood Urine Nitrite Urine Bilirubin Urine Urobilinogen Ur Leukocyte Esterase Urine RBC Urine WBC Ur Squamous Epith Cells Amorphous Sediment Urine Bacteria Urine Mucus Assessment/Plan All Active Problems Septic shock (Acute) UTI (Acute) Left proximal ureteral stone (Acute) Wound infection after surgery (Resolved) Hematoma following procedure (Resolved) Open left ankle fracture (Acute) Fall (Acute) Femur fracture, left (Resolved) resusitate in ICU NPO will place a stent today off pressors but BP still up.
[2018-04-21 07:17] LABS: Prothrombin Time (Protime)PT. 39.7 SECONDS (11.7-14.9)
[2018-04-21 07:24] LABS: International Normalized Ratio 4.1
[2018-04-21 07:26] LABS: Absolute Neutrophil Count 17.7 X10^3/uL (2.0-7.7); Basophil# 0.02 X10^3/uL; Basophil% 0.1 % (0-1); Eosinophil# 0.11 X10^3/uL; Eosinophils% 0.6 % (0-5); Hematocrit 35.9 % (37-47); Hemoglobin 11.1 g/dl (12.0-15.0); Lymphocyte % 2.1 % (19-41); Mean Corp Hgb Conc 30.9 g/gl (32-36); Mean Corpuscular Hgb 28.6 pg (27.0-32.0); Mean Corpuscular Volume 92.5 fL (81-99); Mean Platelet Vol. 9.6 fl (6.2-12.0); Monocyte# 0.79 X10^3/uL; Monocyte% 4.1 % (0-10); Neutrophil # 17.68 X10^3/uL (2.7-7.7); Neutrophil % 92.3 % (47-70); Platelet Count 142 K/mm3 (150-450); RBC Distribution Width CV 14.8 % (11.6-14.6); RBC Distribution Width SD 48.2 fl (35.1-43.9); Red Blood Count 3.88 M/mm3 (4.2-5.4); White Blood Count 19.2 K/mm3 (4.4-11.0)
[2018-04-21 07:27] LABS: Differential Indicated SCAN CRITERIA MET; POSITIVE COUNT NO; POSITIVE DIFFERENTIAL YES; POSITIVE MORPHOLOGY YES
[2018-04-21 07:29] LABS: Anion Gap 8 (5-15); BUN 37 mg/dL (7-18); BUN/Creat Ratio 15.1 RATIO (10-20); Calcium,Total 7.5 mg/dL (8.5-10.1); Chloride 105 mmol/L (98-107); Creatinine, Serum 2.45 mg/dL (0.55-1.02); EST Glomerular Filtration Rate 20 mL/min (>60); Est Glom Filt Rate - Afr Amer 25 mL/min (>60); Estimated Creatinine Clearance 17.85 ml/min; Glucose 162 mg/dL (74-106); Magnesium 1.7 mg/dL (1.6-2.6); Potassium 4.2 mmol/L (3.5-5.1); Sodium Level 135 mmol/L (136-145)
[2018-04-21 07:48] LABS: Hemoglobin A1c 7.5 % (4.2-6.3)
--- NOTE | 2018-04-21 07:51 | CON.PCM_ITS ---
Problem List (1) Septic shock Status: Acute (2) UTI Status: Acute (3) Left proximal ureteral stone Status: Acute (4) Status post total left knee replacement Status: Chronic (5) Wound infection after surgery Status: Resolved (6) Hematoma following procedure Status: Resolved (7) Status post total hip replacement, left Status: Chronic (8) Obesity Status: Chronic (9) Osteoarthritis Status: Chronic (10) Hyperlipidemia Status: Chronic (11) Open left ankle fracture Status: Acute (12) Hypertension Status: Chronic (13) Diabetes mellitus type 2 in obese Status: Chronic (14) Diabetes mellitus Status: Chronic (15) Fall Status: Acute (16) Pulmonary embolism Status: Chronic (17) Metastatic breast cancer Status: Chronic (18) Restless leg syndrome Status: Chronic (19) Hypercoagulable state Status: Chronic (20) Hypothyroidism Status: Chronic (21) Obstructive sleep apnea Status: Chronic (22) Femur fracture, left Status: Resolved (23) History of pulmonary embolism Status: Chronic Reason for Consult Date of Consultation: 04/21/18 Reason for Consultation: Septic shock History of Present Illness: The patient is a 77 year old F, with past medical history listed below, who presented to [facility] on 04/21/2018 secondary to back pain that started the day prior to presentation. Patient had described the pain is intermittent, 10 out of 10 and without exacerbating or relieving factors. Patient had tried to use some tramadol and sitting in a recliner with mild improvement, but it never went away. Patient denied any problems with bowel or bladder. No fever or chills have been reported, but patient did report nausea and vomiting several times today previously. Patient has had hematuria and increased frequency for the 2 weeks prior to presentation. On presentation to the ER, patient was noted to have a bandemia of 18%, elevated creatinine at 2.34 and an INR of 3.5. CT of the abdomen showed a 6 x 3 mm proximal left ureteral stone. Urinalysis was consistent with a urinary tract infection. Straight catheter did not show any return of urine. Patient was given a 30 cc/kg normal saline bolus. Patient remained hypotensive, so a right IJ was placed and patient was initiated on pressor therapy. Patient admitted to the intensive care unit for further evaluation. In the intensive care unit, patient has remained on Levophed therapy. Patient states the pain has improved to 4 out of 10, but is not changed in character or location. Patient denies any bleeding complications. Patient is currently doing well on 2 L nasal cannula oxygen. Patient states she is on anticoagulation secondary to a recurrent history of PE. Patient denies any previous history of kidney stones. CT scan of the chest did show a possible pleural-based nodule in the left lower lobe. Patient does have a history of breast cancer, but states she is unaware of any previous nodules noted on chest imaging. Patient denies any history of renal dysfunction in the past. Patient does have a history of YOLY and uses BiPAP at baseline. Review of systems otherwise negative x10 systems. 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, left (Chronic) Obesity (Chronic) Osteoarthritis (Chronic) Hyperlipidemia (Chronic) Hypertension (Chronic) Diabetes mellitus type 2 in obese (Chronic) Diabetes mellitus (Chronic) Pulmonary embolism (Chronic) Metastatic breast cancer (Chronic) Restless leg syndrome (Chronic) Hypercoagulable state (Chronic) Hypothyroidism (Chronic) Obstructive sleep apnea (Chronic) History of pulmonary embolism (Chronic) Allergies acetaminophen [From Vicodin] Allergy (Verified 04/20/18 22:56) Unknown codeine Allergy (Verified 04/20/18 22:56) Unknown hydrocodone bitartrate [From Vicodin] Allergy (Verified 04/20/18 22:56) Unknown Home Medications: Ambulatory Orders Medication Instructions Recorded Levothyroxine [Synthroid] 112 mcg PO DAILY 01/24/14 Simvastatin [Zocor] 40 mg PO QHS 01/24/14 Anastrozole [Arimidex] 1 mg PO DAILY 03/17/15 Spironolactone [Aldactone] 25 mg PO DAILY #30 tablet 07/08/15 Furosemide [Lasix] 40 mg PO DAILY PRN 05/07/16 Montelukast [Singulair] 10 mg PO DAILY 05/07/16 traZODone [Desyrel] 150 mg PO QHS 05/07/16 Clonazepam [Klonopin] 1 mg PO DAILY PRN PRN #30 tablet 06/09/16 Potassium Chloride [K-Dur] 30 meq PO DAILYCM tablet 06/09/16 Fluticasone 0.05% [Flonase Nasal 1 spray NASAL DAILY 03/18/17 [place]] Fluticasone Propionate [Flovent 12 gm IH BID 03/18/17 Hfa] traMADol [Ultram (G)] 50 mg PO Q6H PRN PRN 03/18/17 Bupropion HCl [Wellbutrin Sr] mg PO DAILY 04/20/18 Warfarin [Coumadin (PBKC)] 2.5 mg PO 04/20/18 Warfarin [Coumadin] 3 mg PO DAILY@1700 04/20/18 Surgical History: cholecystectomy, tonsillectomy, - - Bilateral knee arthroplasty, Bilateral hip arthroplasty, ORIF right ankle fracture, Tubal ligation. 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 Patient Problems: Active and Suspected Problems Septic shock (Acute) UTI (Acute) Left proximal ureteral stone (Acute) Objective: All imaging was personally reviewed. Chest x-ray shows no acute infiltrate, but patient does have a central line in appropriate position. CT of the abdomen did show a pleural-based left lower lobe density. This appears to be consistent with round atelectasis on my evaluation, not true metastasis. - Physical Exam General: Alert, Oriented x3, Cooperative, No apparent distress, - - Morbidly obese. Speaking in full sentences. HEENT: Atraumatic, PERRLA, EOMI, Normocephalic, - - No scleral icterus or injec tion noted. Oral: No Gingival or Mucosal Lesions/ Ulcerations, Dry Mucosa Neck: Supple, No JVD, No Nodes, Trachea Midline, - - Right IJ is clean, dry and intact. Lungs: No rhonchi, No wheeze, No rales, Diminished Cardiovascular: Regular rate, Regular Rhythm, Normal S1, Normal S2, No murmurs, No rub noted, No Gallop Abdomen: Bowel Sounds Present, Soft, Non Tender, Non-Distended, Obese Extremities: No clubbing, No cyanosis, Diminished Peripheral Pulses, Edema - 1+ lower extremity Skin: No rashes, No breakdown Musculoskeletal: No Tenderness to Palpation of Joints or Extremities Lymphatic: No Cervical, Supraclavicular, or Inguinal Adenopathy Neurological: Cranial nerves II-XII grossly intact, Neuro grossly intact, Motor Exam 5/5 strength throughout Psych/Mental Status: Alert and oriented to time, place, person, mood and affect Vital Signs Temp Pulse Resp BP Pulse Ox 37.4 C H 95 20 H 95/59 L 98 04/21/18 07:00 04/21/18 07:00 04/21/18 07:00 04/21/18 07:00 04/21/18 07:00 Oxygen Flow Rate (L/min) 2 Oxygen Delivery Method Nasal Cannula Weight: 124.6 kg Body Mass Index (BMI) 45.7 Finger Stick Blood Glucose 141 Intake and Output for Last 24 Hours 04/19/18 04/20/18 04/21/18 23:59 23:59 23:59 Intake Total 144.5 / 144.5 Output Total 40 / 40 Balance 104.5 / 104.5 Laboratory Tests Past 24 Hrs 04/20/18 04/20/18 04/20/18 23:30 23:30 23:30 WBC 5.0 RBC 4.35 Hgb 12.4 Hct 39.1 MCV 89.9 MCH 28.5 MCHC 31.7 L RDW 14.6 RDW Differential 47.3 H Plt Count 152 MPV 8.7 Immature Gran % (Auto) Neut % (Auto) Not Reportable Lymph % (Auto) [place] % (Auto) Eos % (Auto) Baso % (Auto) Absolute Neuts (auto) 3.7 Absolute Lymphs (auto) 0.10 L Total Counted 100 Neutrophils % (Manual) 74 H Band Neutrophils % 18 H Lymphocytes % (Manual) 2 L Monocytes % (Manual) 2 Eosinophils % (Manual) 1 Metamyelocytes % 3 H Differential Comment 3+ Diff Path Review May foll Platelet Estimate ADEQUATE RBC Morphology NORM C+C PT 35.3 H INR 3.5 H* APTT Sodium 137 Potassium 4.0 Chloride 102 Carbon Dioxide 21.0 Anion Gap 14 BUN 37 H Creatinine 2.34 H Estim Creat Clear Calc 18.69 Est GFR (MDRD) Af Amer 26 L Est GFR (MDRD) Non-Af 22 L BUN/Creatinine Ratio 15.8 Glucose 71 L Hemoglobin A1c Lactic Acid Calcium 8.8 Magnesium TSH Free T4 Urine Color Urine Clarity Urine pH Ur Specific [place] Urine Protein Urine Glucose (UA) Urine Ketones Urine Occult Blood Urine Nitrite Urine Bilirubin Urine Urobilinogen Ur Leukocyte Esterase Urine RBC Urine WBC Ur Squamous Epith Cells Amorphous Sediment Urine Bacteria Urine Mucus 04/20/18 04/21/18 04/21/18 23:30 01:10 03:00 WBC RBC Hgb Hct MCV MCH MCHC RDW RDW Differential Plt Count MPV Immature Gran % (Auto) Neut % (Auto) Lymph % (Auto) [place] % (Auto) Eos % (Auto) Baso % (Auto) Absolute Neuts (auto) Absolute Lymphs (auto) Total Counted Neutrophils % (Manual) Band Neutrophils % Lymphocytes % (Manual) Monocytes % (Manual) Eosinophils % (Manual) Metamyelocytes % Differential Comment Diff Path Review Platelet Estimate RBC Morphology PT INR APTT Sodium Potassium Chloride Carbon Dioxide Anion Gap BUN Creatinine Estim Creat Clear Calc Est GFR (MDRD) Af Amer Est GFR (MDRD) Non-Af BUN/Creatinine Ratio Glucose Hemoglobin A1c Lactic Acid 3.0 H Calcium Magnesium TSH 1.95 Free T4 1.76 H Urine Color Yellow Urine Clarity Cloudy Urine pH 5.0 Ur Specific [place] 1.025 Urine Protein 100 H Urine Glucose (UA) Normal Urine Ketones 5 H Urine Occult Blood 250 H Urine Nitrite Positive H Urine Bilirubin 3 H Urine Urobilinogen 4 H Ur Leukocyte Esterase 500 H Urine RBC 5-10 SEEN Urine WBC 10-25 SEEN Ur Squamous Epith Cells 0-5 SEEN Amorphous Sediment 3+ Urine Bacteria 2+ Urine Mucus 0 SEEN 04/21/18 04/21/18 04/21/18 04:50 05:20 06:35 WBC 19.2 H RBC 3.88 L Hgb 11.1 L Hct 35.9 L MCV 92.5 MCH 28.6 MCHC 30.9 L RDW 14.8 H RDW Differential 48.2 H Plt Count 142 L MPV 9.6 Immature Gran % (Auto) 0.800 Neut % (Auto) 92.3 H Lymph % (Auto) 2.1 L [place] % (Auto) 4.1 Eos % (Auto) 0.6 Baso % (Auto) 0.1 Absolute Neuts (auto) 17.7 H Absolute Lymphs (auto) 0.40 L Total Counted Pending Neutrophils % (Manual) Band Neutrophils % Lymphocytes % (Manual) Monocytes % (Manual) Eosinophils % (Manual) Metamyelocytes % Differential Comment Diff Path Review Platelet Estimate RBC Morphology PT 37.7 H INR 3.8 H* APTT 64.5 H Sodium Potassium Chloride Carbon Dioxide Anion Gap BUN Creatinine Estim Creat Clear Calc Est GFR (MDRD) Af Amer Est GFR (MDRD) Non-Af BUN/Creatinine Ratio Glucose Hemoglobin A1c Lactic Acid 1.7 Calcium Magnesium TSH Free T4 Urine Color Urine Clarity Urine pH Ur Specific [place] Urine Protein Urine Glucose (UA) Urine Ketones Urine Occult Blood Urine Nitrite Urine Bilirubin Urine Urobilinogen Ur Leukocyte Esterase Urine RBC Urine WBC Ur Squamous Epith Cells Amorphous Sediment Urine Bacteria Urine Mucus 04/21/18 04/21/18 04/21/18 06:35 06:35 06:35 WBC RBC Hgb Hct MCV MCH MCHC RDW RDW Differential Plt Count MPV Immature Gran % (Auto) Neut % (Auto) Lymph % (Auto) [place] % (Auto) Eos % (Auto) Baso % (Auto) Absolute Neuts (auto) Absolute Lymphs (auto) Total Counted Neutrophils % (Manual) Band Neutrophils % Lymphocytes % (Manual) Monocytes % (Manual) Eosinophils % (Manual) Metamyelocytes % Differential Comment Diff Path Review Platelet Estimate RBC Morphology PT 39.7 H INR 4.1 H* APTT Sodium 135 L Potassium 4.2 Chloride 105 Carbon Dioxide 22.0 Anion Gap 8 BUN 37 H Creatinine 2.45 H Estim Creat Clear Calc 17.85 Est GFR (MDRD) Af Amer 25 L Est GFR (MDRD) Non-Af 20 L BUN/Creatinine Ratio 15.1 Glucose 162 H Hemoglobin A1c Pending Lactic Acid Calcium 7.5 L Magnesium 1.7 TSH Free T4 Urine Color Urine Clarity Urine pH Ur Specific [place] Urine Protein Urine Glucose (UA) Urine Ketones Urine Occult Blood Urine Nitrite Urine Bilirubin Urine Urobilinogen Ur Leukocyte Esterase Urine RBC Urine WBC Ur Squamous Epith Cells Amorphous Sediment Urine Bacteria Urine Mucus POC Glucose 04/21/18 04/21/18 04/21/18 06:29 02:27 01:49 POC Glucose 140 H 140 H 72 Clinical Impression(s) from Imaging Studies Chest X-Ray 04/21/18 02:00 IMPRESSION: 1. Left basilar small infiltrate or atelectasis. 2. Mild cardiomegaly. No CHF seen. at 0244 Reported and signed by: Silviano Mcdonough MD Electronically Signed: Silviano Mcdonough, at 2:43 EST Tel , Service support , Chest X-Ray 04/21/18 03:48 IMPRESSION: 1. Good position of the right jugular central venous line. No pneumothorax. 2. Chest is otherwise unchanged. at 0420 Reported and signed by: Silviano Mcdonough MD Electronically Signed: Silviano Mcdonough, at 4:19 EST Tel , Service support , Abdomen/Pelvis CT 04/21/18 23:20 IMPRESSION: 1. 6 x 3 mm proximal left ureteral stone with mild hydronephrosis and hydroureter proximal to the stone. 2. No hydronephrosis on the right. 3. Possible 20 mm pleural-based metastasis within the left lower lobe, posteriorly. 4. Chronic findings include cardiomegaly and diverticulosis coli. 5. Lumbar spine degenerative spondylosis and advanced multilevel facet joint arthritis. Individualized dose optimization techniques were used for this CT. at 0119 Reported and signed by: Silviano Mcdonough MD Electronically Signed: Silviano Mcdonough, at 1:18 EST Tel , Service support , Assessment/Plan Active and Suspected Problems Septic shock (Acute) UTI (Acute) Left proximal ureteral stone (Acute) RECOMMENDATIONS: 1. Pressors to keep map greater than 65 2. Hydronephrosis management per urology 3. Type and screen for possible FFP 4. Wean oxygen as tolerated 5. Initiate home BiPAP with sleep IMPRESSIONS: 1. Septic shock secondary to obstructive UTI Patient currently on appropriate antibiotics at this time. Patient does have an obstructing stone, which likely led to the current situation. Patient should have Levophed weaned as tolerated. Will attempt to keep maps greater than 65. Do anticipate some decompensation following removal of obstruction, so patient should be monitored in the intensive care unit overnight. 2. 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 We will continue to monitor. Patient will likely go to the polyuric phase of ATN tomorrow. If not improving, renal consultation may be indicated. Patient does not have a history of previous stones. No indication for renal replacement therapy at this time. 3. 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 INR is slightly elevated. Did discuss with urology and patient will receive FFP before the surgery. Likely will not completely reverse INR as patient does not have any bleeding complications at this time. 4. Lung nodule with history of metastatic breast cancer There is a 20 mm peripherally located shadow noted in the base of the left lobe. Differential would include round atelectasis, but given patient's history of metastatic breast cancer, an outpatient CT scan of the chest would be appropriate for evaluation of recurrence. This likely does not need to be completed as an inpatient. 5. Morbid obesity/diabetes mellitus type 2/obstructive sleep apnea Complicates care, management, recovery and prognosis. Patient can use home BiPAP while hospitalized. We will continue with Accu-Cheks q. before meals and at bedtime. TIME: 33 minutes critical care time spent addressing patient's septic shock, acute kidney injury, YOLY, diabetes, review of all data and collaboration with care team (7 AM to 8 AM) Code Visit [id number]: [id number] Critical care first hour
--- NOTE | 2018-04-21 11:20 | NURSING ---
PT TO SURGERY AT THIS TIME.
[2018-04-21 11:21] LABS: Bedside Glucose 122 mg/dL (70-110)
--- NOTE | 2018-04-21 11:26 | CASEMGMT ---
RN CM Assessment- deferred, pt is @ testing. Monty BSN RN ACM
[2018-04-21] MEDS: Lidocaine Jelly 2% 20 ML Syringe (URO-JET) 20 APPLIC (14:20)
--- NOTE | 2018-04-21 14:26 | OP.PCM_ITS ---
Report of Operation Date of Procedure: 04/21/18 Pre-Operative Diagnosis: Left ureteral calculi with sepsis and obstruction and hydronephrosis Post-Operative Diagnosis: Same Surgery/Procedure Performed:: Cystoscopy and left stent placement Description of Surgical Findings:: 77-year-old female presented to the hospital with sepsis from an infected stone and obstruction she is in the ICU she was given FFP and stabilized and now been taken to the operating room for stent placement on the left side. 77-year-old female taken back to the operating room after smooth induction of anesthesia she was placed in dorsolithotomy position on exam she does have a large rectocele the urethra vaginal area prepped and draped in usual sterile fashion went into the bladder with a 21 Brune[place] rigid cystourethroscope identified the left ureteral orifice advanced a wire up the left side could see the stone in the proximal ureter and then advanced a stent over the wire and once the stent was in good position and pulled the wire and the stent coiled in the kidney and bladder good position and then there was drainage of purulent material from the left kidney. Sauceda catheter was placed back in the bladder and patient anesthetic was reversed taken back to the PACU in good condition to be transferred back to the ICU. We will plan to treat the stone after her infection is cleared up she will need to follow-up in the office. Type of Anesthesia:: General Drains: stent left side. - Admit VTE Documentation VTE Present on Admission: No
[2018-04-21 14:41] LABS: Bedside Glucose 120 mg/dL (70-110)
--- NOTE | 2018-04-21 18:03 | CPS ---
Pt's brought in pt's home nasal BIPAP, pt is groggy so R.T. placed pt on it w/3lpm O2 bled-in, SpO2=96%
[2018-04-21] MEDS: Senna/Docusate Sodium 1 Tablet 2 TABLET PO (21:15)
[2018-04-21] MEDS: Atorvastatin Calcium 20 MG Tablet PO (21:15)
[2018-04-21 21:40] LABS: Bedside Glucose 73 mg/dL (70-110)
--- NOTE | 2018-04-21 23:20 | CT_ITS ---
HISTORY: LOW BACK PAINHX:HTN,DIABETES,BREAST CANCER WITH METS,BILAT HIP SURGERY,CHOLECYSTECTOMY TECHNIQUE: Helically acquired images were obtained of the abdomen and pelvis without oral or IV contrast as per renal stone protocol. A radiation dose optimization technique was used for this scan. IV Contrast dosage and agent: None. Oral contrast: None. COMPARISON: PET CT report but not images 12/12/2017 FINDINGS: Lower thorax: History of metastatic breast cancer. 20 x 11 mm pleural-based nodule at the left lower lobe posteriorly. Possible metastasis no pleural effusion. Cardiomegaly. No pericardial effusion. Cholecystectomy with surgical clips within gallbladder fossa. No biliary dilatation. Limited non-infusion exam. Allowing for this, the liver and spleen show no CT abnormality. Atrophic pancreas. Both kidneys are normal in position. 6 x 3 mm proximal left ureteral stone with mild hydronephrosis and hydroureter proximal to the stone. Both kidneys show water density cysts, more numerous on the left. Adrenal glands are not enlarged. Abdominal aorta is atherosclerotic and normal in caliber. No ascites or retroperitoneal lymphadenopathy. GI tract: No obstruction. Diverticulosis coli. Normal appendix and the cecum was relatively high in position Pelvis: Visualization is limited secondary to streak artifact related to bilateral total hip prostheses. Retroverted uterus which appears normal in size. The pelvis shows no free fluid or lymphadenopathy. Bones: No acute osseous abnormality. Lumbar spine degenerative spondylosis and advanced multilevel facet joint arthritis. Ventral abdominal Wall: Diastases recti with previous midline ventral wall hernia repair with graft. CT/Abdomen/Pelvis without Cont IMPRESSION: 1. 6 x 3 mm proximal left ureteral stone with mild hydronephrosis and hydroureter proximal to the stone. 2. No hydronephrosis on the right. 3. Possible 20 mm pleural-based metastasis within the left lower lobe, posteriorly. 4. Chronic findings include cardiomegaly and diverticulosis coli. 5. Lumbar spine degenerative spondylosis and advanced multilevel facet joint arthritis. Individualized dose optimization techniques were used for this CT. at 0119 Reported and signed by: Silviano Mcdonough MD Electronically Signed: Silviano Mcdonough, at 1:18 EST Tel , Service support ,
[2018-04-22] VITALS (25 sets, daily range): BP systolic 96–137; BP diastolic 60–84; PULSE 82–103; RESP 13–23; TEMP 36.3–36.9; O2SAT 89–97
[2018-04-22] MEDS: traMADol 50 MG Tablet PO (04:18)
[2018-04-22 04:28] LABS: International Normalized Ratio 3.1
[2018-04-22 04:35] LABS: Anion Gap 8 (5-15); BUN 37 mg/dL (7-18); BUN/Creat Ratio 16.3 RATIO (10-20); Calcium,Total 7.9 mg/dL (8.5-10.1); Chloride 110 mmol/L (98-107); Creatinine, Serum 2.27 mg/dL (0.55-1.02); EST Glomerular Filtration Rate 22 mL/min (>60); Est Glom Filt Rate - Afr Amer 27 mL/min (>60); Estimated Creatinine Clearance 19.27 ml/min; Glucose 102 mg/dL (74-106); Potassium 4.3 mmol/L (3.5-5.1); Sodium Level 142 mmol/L (136-145)
[2018-04-22 04:39] LABS: Absolute Lymphocyte Count 0.77 X10^3/ul (0.83-4.51); Absolute Neutrophil Count 14.3 X10^3/uL (2.0-7.7); Basophil# 0.01 X10^3/uL; Basophil% 0.1 % (0-1); Eosinophil# 0.17 X10^3/uL; Eosinophils% 1.1 % (0-5); Hematocrit 33.5 % (37-47); Hemoglobin 10.3 g/dl (12.0-15.0); Lymphocyte # 0.77 X10^3/ul (4.0); Lymphocyte % 4.8 % (19-41); Mean Corp Hgb Conc 30.7 g/gl (32-36); Mean Corpuscular Hgb 28.3 pg (27.0-32.0); Mean Platelet Vol. 9.3 fl (6.2-12.0); Monocyte# 0.81 X10^3/uL; Neutrophil # 14.25 X10^3/uL (2.7-7.7); Neutrophil % 88.6 % (47-70); Platelet Count 86 K/mm3 (150-450); RBC Distribution Width CV 14.9 % (11.6-14.6); RBC Distribution Width SD 51.2 fl (35.1-43.9); Red Blood Count 3.64 M/mm3 (4.2-5.4); White Blood Count 16.1 K/mm3 (4.4-11.0)
[2018-04-22 04:43] LABS: Differential Indicated SCAN CRITERIA MET; POSITIVE COUNT NO; POSITIVE DIFFERENTIAL NO; POSITIVE MORPHOLOGY YES
[2018-04-22 04:45] LABS: Differential Comment SCANNED; Toxic Granulation 3+; Vacuolated Cells 3+
[2018-04-22] MEDS: CHLORHEXIDINE GLUC 2% CLOTH 1 EACH TOWELETTE TOPICAL (06:18)
[2018-04-22] MEDS: Levothyroxine 112 MCG Tablet PO (06:18)
[2018-04-22 06:26] LABS: Bedside Glucose 90 mg/dL (70-110)
[2018-04-22] MEDS: Budesonide Respules 0.5 MG/2 ML AMPUL.NEB. INHALATION ×2 (06:50→18:56)
--- NOTE | 2018-04-22 06:53 | PCM.PN.INT ---
Subjective: Patient did okay overnight. Patient was transiently on pressor therapy following surgery, but this has been off overnight. Patient reports subjective improvement in overall condition. Pain is much improved. Patient has had hematuria overnight, but no irrigation has been required. General: Alert, Oriented x3, Cooperative, No apparent distress, - - Morbidly obese. Speaking in full sentences. HEENT: Atraumatic, PERRLA, EOMI, Normocephalic, - - No scleral icterus or injection noted. Oral: Moist Mucosa, No Gingival or Mucosal Lesions/ Ulcerations Neck: Supple, No JVD, No Nodes, Trachea Midline, - - Right IJ is clean, dry and intact. Lungs: No rhonchi, No wheeze, No rales, Diminished, - - Symmetric expansion. No dullness to percussion. Cardiovascular: Regular rate, Regular Rhythm, Normal S1, Normal S2, No murmurs, No rub noted, No Gallop Abdomen: Bowel Sounds Present, Soft, Non Tender, Non-Distended, Obese Extremities: No clubbing, No cyanosis, Capillary Refill Less than 3 Seconds, Edema Skin: No rashes, No breakdown Musculoskeletal: No Tenderness to Palpation of Joints or Extremities Lymphatic: No Cervical, Supraclavicular, or Inguinal Adenopathy Neurological: Cranial nerves II-XII grossly intact, Neuro grossly intact, Motor Exam 5/5 strength throughout Psych/Mental Status: Alert and oriented to time, place, person, mood and affect Vital Signs Temp Pulse Resp BP Pulse Ox 36.9 C 82 13 120/68 92 04/22/18 04:00 04/22/18 06:00 04/22/18 06:00 04/22/18 06:00 04/22/18 06:00 Oxygen Flow Rate (L/min) 3 Oxygen Delivery Method CPAP Weight: 124.6 kg Body Mass Index (BMI) 45.7 Finger Stick Blood Glucose 155 Intake and Output for Last 24 Hours 04/20/18 04/21/18 04/22/18 23:59 23:59 23:59 Intake Total 1794.5 / 1794.5 2185 / 2185 Output Total 250 / 250 725 / 725 Balance 1544.5 / 1544.5 1460 / 1460 Labs (Last 48 Hours) 04/20/18 04/20/18 04/20/18 23:30 23:30 23:30 WBC 5.0 RBC 4.35 Hgb 12.4 Hct 39.1 MCV 89.9 MCH 28.5 MCHC 31.7 L RDW 14.6 RDW Differential 47.3 H Plt Count 152 MPV 8.7 Immature Gran % (Auto) Neut % (Auto) Not Reportable Lymph % (Auto) [place] % (Auto) Eos % (Auto) Baso % (Auto) Absolute Neuts (auto) 3.7 Absolute Lymphs (auto) 0.10 L Total Counted 100 Neutrophils % (Manual) 74 H Band Neutrophils % 18 H Lymphocytes % (Manual) 2 L Monocytes % (Manual) 2 Eosinophils % (Manual) 1 Metamyelocytes % 3 H Differential Comment 3+ Diff Path Review May foll Toxic Granulation Platelet Estimate ADEQUATE RBC Morphology NORM C+C PT 35.3 H INR 3.5 H* APTT Sodium 137 Potassium 4.0 Chloride 102 Carbon Dioxide 21.0 Anion Gap 14 BUN 37 H Creatinine 2.34 H Estim Creat Clear Calc 18.69 Est GFR (MDRD) Af Amer 26 L Est GFR (MDRD) Non-Af 22 L BUN/Creatinine Ratio 15.8 Glucose 71 L Hemoglobin A1c Lactic Acid Calcium 8.8 Magnesium TSH Free T4 Urine Color Urine Clarity Urine pH Ur Specific [place] Urine Protein Urine Glucose (UA) Urine Ketones Urine Occult Blood Urine Nitrite Urine Bilirubin Urine Urobilinogen Ur Leukocyte Esterase Urine RBC Urine WBC Ur Squamous Epith Cells Amorphous Sediment Urine Bacteria Urine Mucus POC Glucose Blood Type Antibody Screen 04/20/18 04/21/18 04/21/18 23:30 01:10 01:49 WBC RBC Hgb Hct MCV MCH MCHC RDW RDW Differential Plt Count MPV Immature Gran % (Auto) Neut % (Auto) Lymph % (Auto) [place] % (Auto) Eos % (Auto) Baso % (Auto) Absolute Neuts (auto) Absolute Lymphs (auto) Total Counted Neutrophils % (Manual) Band Neutrophils % Lymphocytes % (Manual) Monocytes % (Manual) Eosinophils % (Manual) Metamyelocytes % Differential Comment Diff Path Review Toxic Granulation Platelet Estimate RBC Morphology PT INR APTT Sodium Potassium Chloride Carbon Dioxide Anion Gap BUN Creatinine Estim Creat Clear Calc Est GFR (MDRD) Af Amer Est GFR (MDRD) Non-Af BUN/Creatinine Ratio Glucose Hemoglobin A1c Lactic Acid 3.0 H Calcium Magnesium TSH 1.95 Free T4 1.76 H Urine Color Urine Clarity Urine pH Ur Specific [place] Urine Protein Urine Glucose (UA) Urine Ketones Urine Occult Blood Urine Nitrite Urine Bilirubin Urine Urobilinogen Ur Leukocyte Esterase Urine RBC Urine WBC Ur Squamous Epith Cells Amorphous Sediment Urine Bacteria Urine Mucus POC Glucose 72 Blood Type Antibody Screen 04/21/18 04/21/18 04/21/18 02:27 03:00 04:50 WBC RBC Hgb Hct MCV MCH MCHC RDW RDW Differential Plt Count MPV Immature Gran % (Auto) Neut % (Auto) Lymph % (Auto) [place] % (Auto) Eos % (Auto) Baso % (Auto) Absolute Neuts (auto) Absolute Lymphs (auto) Total Counted Neutrophils % (Manual) Band Neutrophils % Lymphocytes % (Manual) Monocytes % (Manual) Eosinophils % (Manual) Metamyelocytes % Differential Comment Diff Path Review Toxic Granulation Platelet Estimate RBC Morphology PT 37.7 H INR 3.8 H* APTT 64.5 H Sodium Potassium Chloride Carbon Dioxide Anion Gap BUN Creatinine Estim Creat Clear Calc Est GFR (MDRD) Af Amer Est GFR (MDRD) Non-Af BUN/Creatinine Ratio Glucose Hemoglobin A1c Lactic Acid Calcium Magnesium TSH Free T4 Urine Color Yellow Urine Clarity Cloudy Urine pH 5.0 Ur Specific [place] 1.025 Urine Protein 100 H Urine Glucose (UA) Normal Urine Ketones 5 H Urine Occult Blood 250 H Urine Nitrite Positive H Urine Bilirubin 3 H Urine Urobilinogen 4 H Ur Leukocyte Esterase 500 H Urine RBC 5-10 SEEN Urine WBC 10-25 SEEN Ur Squamous Epith Cells 0-5 SEEN Amorphous Sediment 3+ Urine Bacteria 2+ Urine Mucus 0 SEEN POC Glucose 140 H Blood Type Antibody Screen 04/21/18 04/21/18 04/21/18 05:20 06:29 06:35 WBC 19.2 H RBC 3.88 L Hgb 11.1 L Hct 35.9 L MCV 92.5 MCH 28.6 MCHC 30.9 L RDW 14.8 H RDW Differential 48.2 H Plt Count 142 L MPV 9.6 Immature Gran % (Auto) 0.800 Neut % (Auto) 92.3 H Lymph % (Auto) 2.1 L [place] % (Auto) 4.1 Eos % (Auto) 0.6 Baso % (Auto) 0.1 Absolute Neuts (auto) 17.7 H Absolute Lymphs (auto) 0.40 L Total Counted Not Reportable Neutrophils % (Manual) Band Neutrophils % Lymphocytes % (Manual) Monocytes % (Manual) Eosinophils % (Manual) Metamyelocytes % Differential Comment Diff Path Review Toxic Granulation Platelet Estimate RBC Morphology PT INR APTT Sodium Potassium Chloride Carbon Dioxide Anion Gap BUN Creatinine Estim Creat Clear Calc Est GFR (MDRD) Af Amer Est GFR (MDRD) Non-Af BUN/Creatinine Ratio Glucose Hemoglobin A1c Lactic Acid 1.7 Calcium Magnesium TSH Free T4 Urine Color Urine Clarity Urine pH Ur Specific [place] Urine Protein Urine Glucose (UA) Urine Ketones Urine Occult Blood Urine Nitrite Urine Bilirubin Urine Urobilinogen Ur Leukocyte Esterase Urine RBC Urine WBC Ur Squamous Epith Cells Amorphous Sediment Urine Bacteria Urine Mucus POC Glucose 140 H Blood Type Antibody Screen 04/21/18 04/21/18 04/21/18 06:35 06:35 06:35 WBC RBC Hgb Hct MCV MCH MCHC RDW RDW Differential Plt Count MPV Immature Gran % (Auto) Neut % (Auto) Lymph % (Auto) [place] % (Auto) Eos % (Auto) Baso % (Auto) Absolute Neuts (auto) Absolute Lymphs (auto) Total Counted Neutrophils % (Manual) Band Neutrophils % Lymphocytes % (Manual) Monocytes % (Manual) Eosinophils % (Manual) Metamyelocytes % Differential Comment Diff Path Review Toxic Granulation Platelet Estimate RBC Morphology PT 39.7 H INR 4.1 H* APTT Sodium 135 L Potassium 4.2 Chloride 105 Carbon Dioxide 22.0 Anion Gap 8 BUN 37 H Creatinine 2.45 H Estim Creat Clear Calc 17.85 Est GFR (MDRD) Af Amer 25 L Est GFR (MDRD) Non-Af 20 L BUN/Creatinine Ratio 15.1 Glucose 162 H Hemoglobin A1c 7.5 H Lactic Acid Calcium 7.5 L Magnesium 1.7 TSH Free T4 Urine Color Urine Clarity Urine pH Ur Specific [place] Urine Protein Urine Glucose (UA) Urine Ketones Urine Occult Blood Urine Nitrite Urine Bilirubin Urine Urobilinogen Ur Leukocyte Esterase Urine RBC Urine WBC Ur Squamous Epith Cells Amorphous Sediment Urine Bacteria Urine Mucus POC Glucose Blood Type Antibody Screen 04/21/18 04/21/18 04/21/18 07:47 11:15 14:38 WBC RBC Hgb Hct MCV MCH MCHC RDW RDW Differential Plt Count MPV Immature Gran % (Auto) Neut % (Auto) Lymph % (Auto) [place] % (Auto) Eos % (Auto) Baso % (Auto) Absolute Neuts (auto) Absolute Lymphs (auto) Total Counted Neutrophils % (Manual) Band Neutrophils % Lymphocytes % (Manual) Monocytes % (Manual) Eosinophils % (Manual) Metamyelocytes % Differential Comment Diff Path Review Toxic Granulation Platelet Estimate RBC Morphology PT INR APTT Sodium Potassium Chloride Carbon Dioxide Anion Gap BUN Creatinine Estim Creat Clear Calc Est GFR (MDRD) Af Amer Est GFR (MDRD) Non-Af BUN/Creatinine Ratio Glucose Hemoglobin A1c Lactic Acid Calcium Magnesium TSH Free T4 Urine Color Urine Clarity Urine pH Ur Specific [place] Urine Protein Urine Glucose (UA) Urine Ketones Urine Occult Blood Urine Nitrite Urine Bilirubin Urine Urobilinogen Ur Leukocyte Esterase Urine RBC Urine WBC Ur Squamous Epith Cells Amorphous Sediment Urine Bacteria Urine Mucus POC Glucose 122 H 120 H Blood Type O POSITIVE Antibody Screen NEGATIVE 04/21/18 04/22/18 04/22/18 21:13 04:10 04:10 WBC 16.1 H RBC 3.64 L Hgb 10.3 L Hct 33.5 L MCV 92.0 MCH 28.3 MCHC 30.7 L RDW 14.9 H RDW Differential 51.2 H Plt Count 86 L MPV 9.3 Immature Gran % (Auto) 0.400 Neut % (Auto) 88.6 H Lymph % (Auto) 4.8 L [place] % (Auto) 5.0 Eos % (Auto) 1.1 Baso % (Auto) 0.1 Absolute Neuts (auto) 14.3 H Absolute Lymphs (auto) 0.77 L Total Counted Not Reportable Neutrophils % (Manual) Band Neutrophils % Lymphocytes % (Manual) Monocytes % (Manual) Eosinophils % (Manual) Metamyelocytes % Differential Comment 3+ Diff Path Review Toxic Granulation 3+ Platelet Estimate RBC Morphology PT 32.0 H INR 3.1 APTT Sodium Potassium Chloride Carbon Dioxide Anion Gap BUN Creatinine Estim Creat Clear Calc Est GFR (MDRD) Af Amer Est GFR (MDRD) Non-Af BUN/Creatinine Ratio Glucose Hemoglobin A1c Lactic Acid Calcium Magnesium TSH Free T4 Urine Color Urine Clarity Urine pH Ur Specific [place] Urine Protein Urine Glucose (UA) Urine Ketones Urine Occult Blood Urine Nitrite Urine Bilirubin Urine Urobilinogen Ur Leukocyte Esterase Urine RBC Urine WBC Ur Squamous Epith Cells Amorphous Sediment Urine Bacteria Urine Mucus POC Glucose 73 Blood Type Antibody Screen 04/22/18 04/22/18 04:10 06:19 WBC RBC Hgb Hct MCV MCH MCHC RDW RDW Differential Plt Count MPV Immature Gran % (Auto) Neut % (Auto) Lymph % (Auto) [place] % (Auto) Eos % (Auto) Baso % (Auto) Absolute Neuts (auto) Absolute Lymphs (auto) Total Counted Neutrophils % (Manual) Band Neutrophils % Lymphocytes % (Manual) Monocytes % (Manual) Eosinophils % (Manual) Metamyelocytes % Differential Comment Diff Path Review Toxic Granulation Platelet Estimate RBC Morphology PT INR APTT Sodium 142 Potassium 4.3 Chloride 110 H Carbon Dioxide 24.0 Anion Gap 8 BUN 37 H Creatinine 2.27 H Estim Creat Clear Calc 19.27 Est GFR (MDRD) Af Amer 27 L Est GFR (MDRD) Non-Af 22 L BUN/Creatinine Ratio 16.3 Glucose 102 Hemoglobin A1c Lactic Acid Calcium 7.9 L Magnesium TSH Free T4 Urine Color Urine Clarity Urine pH Ur Specific [place] Urine Protein Urine Glucose (UA) Urine Ketones Urine Occult Blood Urine Nitrite Urine Bilirubin Urine Urobilinogen Ur Leukocyte Esterase Urine RBC Urine WBC Ur Squamous Epith Cells Amorphous Sediment Urine Bacteria Urine Mucus POC Glucose 90 Blood Type Antibody Screen Microbiology 04/21/18 01:18 Blood Culture (Wb) - Right Hand Blood Culture - Preliminary 04/21/18 01:10 Blood Culture (Wb) - Right Wrist Blood Culture - Preliminary Medical Necessity - Tobacco Use Smoking Status: Never smoker Assessment/Plan All Active Problems Septic shock (Acute) UTI (Acute) Left proximal ureteral stone (Acute) Wound infection after surgery (Resolved) Hematoma following procedure (Resolved) Open left ankle fracture (Acute) Fall (Acute) Femur fracture, left (Resolved) RECOMMENDATIONS: 1. Small dose of vitamin K 2. Hydronephrosis management per urology 3. Continue to monitor blood counts on a daily basis 4. Increase activity as tolerated 5. Continue home BiPAP with sleep 6. Okay to leave the intensive care unit IMPRESSIONS: 1. Septic shock secondary to gram-negative bacteria secondary to obstructive UTI Patient did have need for transient pressor therapy following surgery. Patient has been doing well to this point. No pressors have been required. Fever is well controlled. Some improvement on creatinine compared to previous. 2. 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 We will continue to monitor. If not improving, renal consultation may be indicated. Patient does not have a history of previous stones. No indication for renal replacement therapy at this time. 3. 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 INR is slightly elevated today. Patient continues to have hematuria, but no significant blood clots. Will give patient a small dose of vitamin K to temporize antibiotic prolongation of INR. Coumadin has been held. 4. Lung nodule with history of metastatic breast cancer There is a 20 mm peripherally located shadow noted in the base of the left lobe. Differential would include round atelectasis, but given patient's history of metastatic breast cancer, an outpatient CT scan of the chest would be appropriate for evaluation of recurrence. This likely does not need to be completed as an inpatient. 5. Morbid obesity/diabetes mellitus type 2/obstructive sleep apnea Complicates care, management, recovery and prognosis. Patient can use home BiPAP while hospitalized. We will continue with Accu-Cheks q. before meals and at bedtime. 6. Consumptive thrombocytopenia Patient has had an elevated INR. Patient is not reporting any pain to suggest a retroperitoneal hematoma at this time. Patient will be given a small dose of vitamin K. Continue to monitor blood counts. Code Visit Inpatient E&M: 72160 Subs Hosp L3
[2018-04-22] MEDS: Phytonadione (Vit K) 10 MG/ML Ampul 2.5 MG PO (06:55)
[2018-04-22] MEDS: Fluticasone 0.05% 1 SPRAY NASAL.SRY NASAL (09:22)
[2018-04-22] MEDS: Montelukast 10 MG Tablet PO (09:22)
[2018-04-22] MEDS: Senna/Docusate Sodium 1 Tablet 2 TABLET PO ×2 (09:22→21:35)
[2018-04-22 09:40] LABS: Bedside Glucose 102 mg/dL (70-110)
[2018-04-22 11:41] LABS: Bedside Glucose 146 mg/dL (70-110)
--- NOTE | 2018-04-22 15:00 | CASEMGMT ---
Initial Assessment ICU Collaboration with RN JOSE LUIS regarding need for initial assessment. Informant: medical record and patient herself. Reason for Admission: Septic Shock PCP: Dr. Anguiano [facility] Advanced Directives: Patient reports to have [facility] and living will though not on file. Patient identifies , Tony Shoemaker as the POA[facility]. Patient reports will try to remember to have bring in a copy to the hospital. Home Situation: Patient reports to live in a one story home, there are stairs to basement but patient does not use. Patient reports ramped entrance from the garage. Patient lives with and reports home situation is safe an adequate. Denies any history of abuse in this relationship. Skills for daily living: Patient reports independent with bathing, dressing, uses assistive devices for mobility. does the driving and the cooking. DME: Patient reports to have walker, rollator, lift chair, wheelchair, and medical alert. Patient reports to have Bipap from [facility] [employer], and since this DME company went out of business patient did choose a new provider but unable to recall the name. Support: Patient is reported to be primary support person. There are also neighbors patient could call upon if needed. Transportation: Emotional Health: Patient reports long history of depression, that does take an antidepressant, which patient states to believe to be working well. Patient reports history of suicidal ideation in the past, no attempt, with this being several years ago per patient report. Patient denies any thoughts, plans, intent at this time or the last year. Patient reports to feel stable regarding depression, feels medicine is adequate and denies interest in referral to counseling. Current or Past Community Services: Current with medical alert system at home. Patient reports she and go to [facility], and if PT or OT would be needed at discharge this is the first choice. Patient reports history of [facility] as well as [facility]. Patient reports has had Home IV antibiotics in the past, and that was willing to learn how to administer. Plan: Patient is hopeful to return home with assisting. Patient would be open to [facility] for therapies, if therapies are indicated. Patient would consider HHC if outpatient is not feasible. Case management and social work remain available to assist with discharge planning needs as they arise or are indicated. -STEPHEN Tavares, INFRASTRUCTURE TECHNICIAN
--- NOTE | 2018-04-22 15:00 | PCM.PN.HOSP ---
Patient Problems: Active and Suspected Problems Septic shock (Acute) UTI (Acute) Left proximal ureteral stone (Acute) Subjective: Feels good. Still with hematuria. No further back or abdominal pain. Vitals/I&O's: Vital Signs Temp Pulse Resp BP Pulse Ox 36.5 C L 83 23 H 137/79 H 96 04/22/18 14:00 04/22/18 14:00 04/22/18 14:00 04/22/18 14:00 04/22/18 14:00 Oxygen Flow Rate (L/min) 2 Oxygen Delivery Method CPAP Weight: 124.6 kg Body Mass Index (BMI) 45.7 Finger Stick Blood Glucose 155 Intake and Output for Last 24 Hours 04/20/18 04/21/18 04/22/18 23:59 23:59 23:59 Intake Total 1794.5 / 1794.5 2605 / 2605 Output Total 250 / 250 1025 / 1025 Balance 1544.5 / 1544.5 1580 / 1580 General: Alert, No apparent distress, - - up in chair. afebrile. HEENT: Atraumatic, Normocephalic Oral: Moist Mucosa, No Gingival or Mucosal Lesions/ Ulcerations Neck: No Nodes, Thyroid Normal Size and Texture Lungs: Clear to auscultation, Normal air movement, No rhonchi, No wheeze Cardiovascular: Regular rate, Regular Rhythm, Normal S1, Normal S2, No murmurs Abdomen: Bowel Sounds Present, Soft, Non Tender, Non-Distended, No Hepato-splenomegaly Extremities: No edema, No Calf Tenderness Musculoskeletal: No Tenderness to Palpation of Joints or Extremities, No Muscle Wasting Neurological: Muscle tone normal, Coordination normal Psych/Mental Status: Normal Affect, Appropriate Microbiology Past 72 Hours 04/21/18 01:10 Blood Culture (Wb) - Right Wrist Blood Culture - Preliminary 04/21/18 03:00 Urine, Catheterized Urine Culture - Preliminary Gram negative blanca 04/21/18 01:18 Blood Culture (Wb) - Right Hand Blood Culture - Preliminary 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 Laboratory Results 04/21/18 21:13: POC Glucose 73 04/22/18 04:10: PT 32.0 H, INR 3.1 04/22/18 04:10: WBC 16.1 H, RBC 3.64 L, Hgb 10.3 L, Hct 33.5 L, MCV 92.0, MCH 28.3, MCHC 30.7 L, RDW 14.9 H, RDW Differential 51.2 H, Plt Count 86 L, MPV 9.3, Immature Gran % (Auto) 0.400, Neut % (Auto) 88.6 H, Lymph % (Auto) 4.8 L, [place] % (Auto) 5.0, Eos % (Auto) 1.1, Baso % (Auto) 0.1, Absolute Neuts (auto) 14.3 H, Absolute Lymphs (auto) 0.77 L, Total Counted Not Reportable, Differential Comment 3+, Toxic Granulation 3+ 04/22/18 04:10: Sodium 142, Potassium 4.3, Chloride 110 H, Carbon Dioxide 24.0, Anion Gap 8, BUN 37 H, Creatinine 2.27 H, Estim Creat Clear Calc 19.27, Est GFR (MDRD) Af Amer 27 L, Est GFR (MDRD) Non-Af 22 L, BUN/Creatinine Ratio 16.3, Glucose 102, Calcium 7.9 L 04/22/18 06:19: POC Glucose 90 04/22/18 09:16: POC Glucose 102 04/22/18 11:32: POC Glucose 146 H Current Medications Atorvastatin Calcium (Lipitor) 20 mg PO QHS [facility] Last Admin: 04/21/18 21:15 Dose: 20 mg Budesonide (Pulmicort Aerosol) 0.5 mg INHALATION Q12H.RT [facility] Last Admin: 04/22/18 06:50 Dose: 0.5 mg Chlorhexidine Gluconate () 1 each TOPICAL DAILY [facility] Last Admin: 04/22/18 06:18 Dose: 1 each Clonazepam (Klonopin) 1 mg PO DAILY PRN PRN PRN Reason: restless leg syndrome Dextrose (D50w Syringe) 0 gm IV X1 PRN; Protocol PRN Reason: Hypoglycemia Fentanyl Citrate (Sublimaze (100mcg Ampule)) 50 mcg IV Q2H PRN PRN PRN Reason: PAIN Fluticasone Propionate (Flonase Nasal [place]) 1 spray NASAL DAILY [facility] Last Admin: 04/22/18 09:22 Dose: 1 spray Glucagon () 1 mg IM .X1 PRN PRN Reason: Hypoglycemia Sodium Chloride () 250 mls @ 15 mls/hr IV .[id number] PRN PRN Reason: SALINE FLUSH Ceftriaxone Sodium 2 gm/ (Sodium Chloride) 50 mls @ 100 mls/hr IV DAILY@2200 [facility] Ibuprofen (Motrin) 400 mg PO Q6H PRN PRN PRN Reason: fever>100.4 F Insulin Human Lispro (Humalog Kwikpen (Bkc)) 0 unit SQ ACHS [facility]; Protocol Last Admin: 04/22/18 11:38 Dose: Not Given Levothyroxine Sodium (Synthroid) 112 mcg PO DAILY@0600 [facility] Last Admin: 04/22/18 06:18 Dose: 112 mcg Montelukast Sodium (Singulair) 10 mg PO DAILY [facility] Last Admin: 04/22/18 09:22 Dose: 10 mg Senna/Docusate Sodium (Senokot-S, [place]-Colace) 2 tablet PO BID [facility] Last Admin: 04/22/18 09:22 Dose: 2 tablet Sodium Chloride () 5 - 15 ml IV UD PRN PRN Reason: SALINE FLUSH Sodium Chloride () 10 - 40 ml IV UD PRN PRN Reason: MULTILUMEN/HICMAN CATH FLUSH Last Admin: 04/21/18 06:21 Dose: 30 ml Tramadol HCl (Ultram) 50 mg PO Q12H PRN PRN PRN Reason: PAIN Last Admin: 04/22/18 04:18 Dose: 50 mg Medical Necessity - Tobacco Use Smoking Status: Never smoker Assessment/Plan All Active Problems Septic shock (Acute) UTI (Acute) Left proximal ureteral stone (Acute) Wound infection after surgery (Resolved) Hematoma following procedure (Resolved) Open left ankle fracture (Acute) Fall (Acute) Femur fracture, left (Resolved) 1. septic shock 2/2 UTI and bacteremia continue CTX off Levophed since 04/21 2. UTI UTI likely associated with stone follow up culture, thus far showing GNR 3. Bacteremia GNR in BCx on the 22 sets, noted to be + at 1553 on 04/21 will repeat BCx most likely 2/2 UTI ensure sterility prior to DC 4. ENRIQUE most likely post renal, but also could be prerenal/ATN due to shock. 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 Left ureteral stone s/p stent on 04/21 follow up urology as outpt 6. hematuria ongoing 2/2 stone, stent and slightly supratherapuetic INR received vitamin K 2.5mg today monitor continue johnson until hematuria resolved. No need for irrigation at this time, unless starts to be misty blood (currently, blood-tinged) 7. Coagulopathy INR trending down Monitor hold coumadin until hematuria resolved 8. DVT proph: anticoagulated add SCDs Code Visit Inpatient E&M: 19993 Subs Hosp L3
--- NOTE | 2018-04-22 15:15 | PN_ITS ---
Patient Problems: Active and Suspected Problems Septic shock (Acute) UTI (Acute) Left proximal ureteral stone (Acute) Subjective: Feels good. Still with hematuria. No further back or abdominal pain. Vitals/I&O's: Vital Signs Temp Pulse Resp BP Pulse Ox 36.5 C L 83 23 H 137/79 H 96 04/22/18 14:00 04/22/18 14:00 04/22/18 14:00 04/22/18 14:00 04/22/18 14:00 Oxygen Flow Rate (L/min) 2 Oxygen Delivery Method CPAP Weight: 124.6 kg Body Mass Index (BMI) 45.7 Finger Stick Blood Glucose 155 Intake and Output for Last 24 Hours 04/20/18 04/21/18 04/22/18 23:59 23:59 23:59 Intake Total 1794.5 / 1794.5 2605 / 2605 Output Total 250 / 250 1025 / 1025 Balance 1544.5 / 1544.5 1580 / 1580 General: Alert, No apparent distress, - - up in chair. afebrile. HEENT: Atraumatic, Normocephalic Oral: Moist Mucosa, No Gingival or Mucosal Lesions/ Ulcerations Neck: No Nodes, Thyroid Normal Size and Texture Lungs: Clear to auscultation, Normal air movement, No rhonchi, No wheeze Cardiovascular: Regular rate, Regular Rhythm, Normal S1, Normal S2, No murmurs Abdomen: Bowel Sounds Present, Soft, Non Tender, Non-Distended, No Hepato- splenomegaly Extremities: No edema, No Calf Tenderness Musculoskeletal: No Tenderness to Palpation of Joints or Extremities, No Muscle Wasting Neurological: Muscle tone normal, Coordination normal Psych/Mental Status: Normal Affect, Appropriate Microbiology Past 72 Hours 04/21/18 01:10 Blood Culture (Wb) - Right Wrist Blood Culture - Preliminary 04/21/18 03:00 Urine, Catheterized Urine Culture - Preliminary Gram negative blanca 04/21/18 01:18 Blood Culture (Wb) - Right Hand Blood Culture - 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 Laboratory Results 04/21/18 21:13: POC Glucose 73 04/22/18 04:10: PT 32.0 H, INR 3.1 04/22/18 04:10: WBC 16.1 H, RBC 3.64 L, Hgb 10.3 L, Hct 33.5 L, MCV 92.0, MCH 28.3, MCHC 30.7 L, RDW 14.9 H, RDW Differential 51.2 H, Plt Count 86 L, MPV 9.3, Immature Gran % (Auto) 0.400, Neut % (Auto) 88.6 H, Lymph % (Auto) 4.8 L, [place] % (Auto) 5.0, Eos % (Auto) 1.1, Baso % (Auto) 0.1, Absolute Neuts (auto) 14.3 H, Absolute Lymphs (auto) 0.77 L, Total Counted Not Reportable, Differential Comment 3+, Toxic Granulation 3+ 04/22/18 04:10: Sodium 142, Potassium 4.3, Chloride 110 H, Carbon Dioxide 24.0, Anion Gap 8, BUN 37 H, Creatinine 2.27 H, Estim Creat Clear Calc 19.27, Est GFR (MDRD) Af Amer 27 L, Est GFR (MDRD) Non-Af 22 L, BUN/Creatinine Ratio 16.3, Glucose 102, Calcium 7.9 L 04/22/18 06:19: POC Glucose 90 04/22/18 09:16: POC Glucose 102 04/22/18 11:32: POC Glucose 146 H Current Medications Atorvastatin Calcium (Lipitor) 20 mg PO QHS [facility] Last Admin: 04/21/18 21:15 Dose: 20 mg Budesonide (Pulmicort Aerosol) 0.5 mg INHALATION Q12H.RT [facility] Last Admin: 04/22/18 06:50 Dose: 0.5 mg Chlorhexidine Gluconate () 1 each TOPICAL DAILY [facility] Last Admin: 04/22/18 06:18 Dose: 1 each Clonazepam (Klonopin) 1 mg PO DAILY PRN PRN PRN Reason: restless leg syndrome Dextrose (D50w Syringe) 0 gm IV X1 PRN; Protocol PRN Reason: Hypoglycemia Fentanyl Citrate (Sublimaze (100mcg Ampule)) 50 mcg IV Q2H PRN PRN PRN Reason: PAIN Fluticasone Propionate (Flonase Nasal [place]) 1 spray NASAL DAILY [facility] Last Admin: 04/22/18 09:22 Dose: 1 spray Glucagon () 1 mg IM .X1 PRN PRN Reason: Hypoglycemia Sodium Chloride () 250 mls @ 15 mls/hr IV .[id number] PRN PRN Reason: SALINE FLUSH Ceftriaxone Sodium 2 gm/ (Sodium Chloride) 50 mls @ 100 mls/hr IV DAILY@2200 [facility] Ibuprofen (Motrin) 400 mg PO Q6H PRN PRN PRN Reason: fever>100.4 F Insulin Human Lispro (Humalog Kwikpen (Bkc)) 0 unit SQ ACHS [facility]; Protocol Last Admin: 04/22/18 11:38 Dose: Not Given Levothyroxine Sodium (Synthroid) 112 mcg PO DAILY@0600 [facility] Last Admin: 04/22/18 06:18 Dose: 112 mcg Montelukast Sodium (Singulair) 10 mg PO DAILY [facility] Last Admin: 04/22/18 09:22 Dose: 10 mg Senna/Docusate Sodium (Senokot-S, [place]-Colace) 2 tablet PO BID [facility] Last Admin: 04/22/18 09:22 Dose: 2 tablet Sodium Chloride () 5 - 15 ml IV UD PRN PRN Reason: SALINE FLUSH Sodium Chloride () 10 - 40 ml IV UD PRN PRN Reason: MULTILUMEN/HICMAN CATH FLUSH Last Admin: 04/21/18 06:21 Dose: 30 ml Tramadol HCl (Ultram) 50 mg PO Q12H PRN PRN PRN Reason: PAIN Last Admin: 04/22/18 04:18 Dose: 50 mg Medical Necessity - Tobacco Use Smoking Status: Never smoker Assessment/Plan All Active Problems Septic shock (Acute) UTI (Acute) Left proximal ureteral stone (Acute) Wound infection after surgery (Resolved) Hematoma following procedure (Resolved) Open left ankle fracture (Acute) Fall (Acute) Femur fracture, left (Resolved) 1. septic shock 2/2 UTI and bacteremia continue CTX off Levophed since 04/21 2. UTI UTI likely associated with stone follow up culture, thus far showing GNR 3. Bacteremia GNR in BCx on the 22 sets, noted to be + at 1553 on 04/21 will repeat BCx most likely 2/2 UTI ensure sterility prior to DC 4. ENRIQUE most likely post renal, but also could be prerenal/ATN due to shock. 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 Left ureteral stone s/p stent on 04/21 follow up urology as outpt 6. hematuria ongoing 2/2 stone, stent and slightly supratherapuetic INR received vitamin K 2.5mg today monitor continue johnson until hematuria resolved. No need for irrigation at this time, unless starts to be misty blood (currently, blood-tinged) 7. Coagulopathy INR trending down Monitor hold coumadin until hematuria resolved 8. DVT proph: anticoagulated add SCDs Code Visit Inpatient E&M: 18288 Subs Hosp L3
[2018-04-22] MEDS: 0.9% Normal Saline 1,000 ML 125 ML IV (15:47)
[2018-04-22] MEDS: Insulin Lispro 100 UNIT/ML INSULN.PEN SQ (16:45)
[2018-04-22 16:46] LABS: Bedside Glucose 157 mg/dL (70-110)
[2018-04-22] MEDS: Atorvastatin Calcium 20 MG Tablet PO (21:34)
[2018-04-22 21:46] LABS: Bedside Glucose 121 mg/dL (70-110)
--- NOTE | 2018-04-22 22:31 | CPS ---
pt has own bipap, with 3 L o2 bled into machine
[2018-04-23] VITALS (14 sets, daily range): BP systolic 123–158; BP diastolic 75–88; PULSE 80–97; RESP 15–19; TEMP 36.5–37; O2SAT 93–95
[2018-04-23 04:38] LABS: Basophil# 0.02 X10^3/uL; Basophil% 0.2 % (0-1); Eosinophil# 0.23 X10^3/uL; Eosinophils% 1.9 % (0-5); Hematocrit 34.2 % (37-47); Hemoglobin 10.8 g/dl (12.0-15.0); Lymphocyte % 5.1 % (19-41); Mean Corp Hgb Conc 31.6 g/gl (32-36); Mean Corpuscular Volume 91.7 fL (81-99); Mean Platelet Vol. 9.3 fl (6.2-12.0); Monocyte# 0.92 X10^3/uL; Monocyte% 7.8 % (0-10); Neutrophil # 9.99 X10^3/uL (2.7-7.7); Neutrophil % 84.7 % (47-70); Platelet Count 99 K/mm3 (150-450); RBC Distribution Width CV 14.9 % (11.6-14.6); RBC Distribution Width SD 49.2 fl (35.1-43.9); Red Blood Count 3.73 M/mm3 (4.2-5.4); White Blood Count 11.8 K/mm3 (4.4-11.0)
[2018-04-23 04:40] LABS: Differential Indicated SCAN CRITERIA MET; POSITIVE COUNT NO; POSITIVE DIFFERENTIAL YES; POSITIVE MORPHOLOGY YES
[2018-04-23 04:42] LABS: International Normalized Ratio 1.6; Prothrombin Time (Protime)PT. 19.4 SECONDS (11.7-14.9)
[2018-04-23 04:53] LABS: Anion Gap 10 (5-15); BUN 24 mg/dL (7-18); BUN/Creat Ratio 16.2 RATIO (10-20); Calcium,Total 8.5 mg/dL (8.5-10.1); Chloride 110 mmol/L (98-107); Creatinine, Serum 1.48 mg/dL (0.55-1.02); EST Glomerular Filtration Rate 37 mL/min (>60); Est Glom Filt Rate - Afr Amer 44 mL/min (>60); Estimated Creatinine Clearance 29.55 ml/min; Glucose 98 mg/dL (74-106); Potassium 4.1 mmol/L (3.5-5.1); Sodium Level 143 mmol/L (136-145)
--- NOTE | 2018-04-23 06:33 | PN_ITS ---
Subjective: Patient did well overnight. No acute issues were reported. Patient has remained on room air. Patient was on BiPAP overnight at baseline settings. Hematuria has significantly improved compared to previous. No need for fluid boluses or pressors overnight. General: Alert, Oriented x3, Cooperative, No apparent distress, - - Morbidly obese. Speaking in full sentences. HEENT: Atraumatic, PERRLA, EOMI, Normocephalic, - - No scleral icterus or injection noted. Oral: Moist Mucosa, No Gingival or Mucosal Lesions/ Ulcerations Neck: Supple, No JVD, No Nodes, Trachea Midline, - - IJ is clean, dry and intact. Lungs: No rhonchi, No wheeze, No rales, Diminished, - - Symmetric expansion. No dullness to percussion. Cardiovascular: Regular rate, Regular Rhythm, Normal S1, Normal S2, No murmurs, No rub noted, No Gallop Abdomen: Bowel Sounds Present, Soft, Non Tender, Non-Distended, Obese Extremities: No clubbing, No cyanosis, Capillary Refill Less than 3 Seconds, Edema Skin: No rashes, No breakdown Musculoskeletal: No Tenderness to Palpation of Joints or Extremities Lymphatic: No Cervical, Supraclavicular, or Inguinal Adenopathy Neurological: Cranial nerves II-XII grossly intact, Neuro grossly intact, Motor Exam 5/5 strength throughout Psych/Mental Status: Alert and oriented to time, place, person, mood and affect Vital Signs Temp Pulse Resp BP Pulse Ox 36.5 C L 84 15 146/85 H 95 04/23/18 04:15 04/23/18 04:15 04/23/18 04:15 04/23/18 04:15 04/23/18 04:15 Oxygen Flow Rate (L/min) 3 Oxygen Delivery Method CPAP Weight: 124.6 kg Body Mass Index (BMI) 45.7 Finger Stick Blood Glucose 155 Intake and Output for Last 24 Hours 04/21/18 04/22/18 04/23/18 23:59 23:59 23:59 Intake Total 1794.5 / 1794.5 4373 / 4373 Output Total 250 / 250 2725 / 2725 Balance 1544.5 / 1544.5 1648 / 1648 Labs (Last 48 Hours) 04/21/18 04/21/18 04/21/18 05:20 06:29 06:35 WBC 19.2 H RBC 3.88 L Hgb 11.1 L Hct 35.9 L MCV 92.5 MCH 28.6 MCHC 30.9 L RDW 14.8 H RDW Differential 48.2 H Plt Count 142 L MPV 9.6 Immature Gran % (Auto) 0.800 Neut % (Auto) 92.3 H Lymph % (Auto) 2.1 L [place] % (Auto) 4.1 Eos % (Auto) 0.6 Baso % (Auto) 0.1 Absolute Neuts (auto) 17.7 H Absolute Lymphs (auto) 0.40 L Total Counted Not Reportable Differential Comment Toxic Granulation Eos Smear Total Cells PT INR Sodium Potassium Chloride Carbon Dioxide Anion Gap BUN Creatinine Estim Creat Clear Calc Est GFR (MDRD) Af Amer Est GFR (MDRD) Non-Af BUN/Creatinine Ratio Glucose Hemoglobin A1c Lactic Acid 1.7 Calcium Magnesium Urine Creatinine POC Glucose 140 H Blood Type Antibody Screen 04/21/18 04/21/18 04/21/18 06:35 06:35 06:35 WBC RBC Hgb Hct MCV MCH MCHC RDW RDW Differential Plt Count MPV Immature Gran % (Auto) Neut % (Auto) Lymph % (Auto) [place] % (Auto) Eos % (Auto) Baso % (Auto) Absolute Neuts (auto) Absolute Lymphs (auto) Total Counted Differential Comment Toxic Granulation Eos Smear Total Cells PT 39.7 H INR 4.1 H* Sodium 135 L Potassium 4.2 Chloride 105 Carbon Dioxide 22.0 Anion Gap 8 BUN 37 H Creatinine 2.45 H Estim Creat Clear Calc 17.85 Est GFR (MDRD) Af Amer 25 L Est GFR (MDRD) Non-Af 20 L BUN/Creatinine Ratio 15.1 Glucose 162 H Hemoglobin A1c 7.5 H Lactic Acid Calcium 7.5 L Magnesium 1.7 Urine Creatinine POC Glucose Blood Type Antibody Screen 04/21/18 04/21/18 04/21/18 07:47 11:15 14:38 WBC RBC Hgb Hct MCV MCH MCHC RDW RDW Differential Plt Count MPV Immature Gran % (Auto) Neut % (Auto) Lymph % (Auto) [place] % (Auto) Eos % (Auto) Baso % (Auto) Absolute Neuts (auto) Absolute Lymphs (auto) Total Counted Differential Comment Toxic Granulation Eos Smear Total Cells PT INR Sodium Potassium Chloride Carbon Dioxide Anion Gap BUN Creatinine Estim Creat Clear Calc Est GFR (MDRD) Af Amer Est GFR (MDRD) Non-Af BUN/Creatinine Ratio Glucose Hemoglobin A1c Lactic Acid Calcium Magnesium Urine Creatinine POC Glucose 122 H 120 H Blood Type O POSITIVE Antibody Screen NEGATIVE 04/21/18 04/22/18 04/22/18 21:13 04:10 04:10 WBC 16.1 H RBC 3.64 L Hgb 10.3 L Hct 33.5 L MCV 92.0 MCH 28.3 MCHC 30.7 L RDW 14.9 H RDW Differential 51.2 H Plt Count 86 L MPV 9.3 Immature Gran % (Auto) 0.400 Neut % (Auto) 88.6 H Lymph % (Auto) 4.8 L [place] % (Auto) 5.0 Eos % (Auto) 1.1 Baso % (Auto) 0.1 Absolute Neuts (auto) 14.3 H Absolute Lymphs (auto) 0.77 L Total Counted Not Reportable Differential Comment 3+ Toxic Granulation 3+ Eos Smear Total Cells PT 32.0 H INR 3.1 Sodium Potassium Chloride Carbon Dioxide Anion Gap BUN Creatinine Estim Creat Clear Calc Est GFR (MDRD) Af Amer Est GFR (MDRD) Non-Af BUN/Creatinine Ratio Glucose Hemoglobin A1c Lactic Acid Calcium Magnesium Urine Creatinine POC Glucose 73 Blood Type Antibody Screen 04/22/18 04/22/18 04/22/18 04:10 06:19 09:16 WBC RBC Hgb Hct MCV MCH MCHC RDW RDW Differential Plt Count MPV Immature Gran % (Auto) Neut % (Auto) Lymph % (Auto) [place] % (Auto) Eos % (Auto) Baso % (Auto) Absolute Neuts (auto) Absolute Lymphs (auto) Total Counted Differential Comment Toxic Granulation Eos Smear Total Cells PT INR Sodium 142 Potassium 4.3 Chloride 110 H Carbon Dioxide 24.0 Anion Gap 8 BUN 37 H Creatinine 2.27 H Estim Creat Clear Calc 19.27 Est GFR (MDRD) Af Amer 27 L Est GFR (MDRD) Non-Af 22 L BUN/Creatinine Ratio 16.3 Glucose 102 Hemoglobin A1c Lactic Acid Calcium 7.9 L Magnesium Urine Creatinine POC Glucose 90 102 Blood Type Antibody Screen 04/22/18 04/22/18 04/22/18 11:32 15:30 16:40 WBC RBC Hgb Hct MCV MCH MCHC RDW RDW Differential Plt Count MPV Immature Gran % (Auto) Neut % (Auto) Lymph % (Auto) [place] % (Auto) Eos % (Auto) Baso % (Auto) Absolute Neuts (auto) Absolute Lymphs (auto) Total Counted Differential Comment Toxic Granulation Eos Smear Total Cells Pending PT INR Sodium Potassium Chloride Carbon Dioxide Anion Gap BUN Creatinine Estim Creat Clear Calc Est GFR (MDRD) Af Amer Est GFR (MDRD) Non-Af BUN/Creatinine Ratio Glucose Hemoglobin A1c Lactic Acid Calcium Magnesium Urine Creatinine 41.40 POC Glucose 146 H Blood Type Antibody Screen 04/22/18 04/22/18 04/23/18 16:40 21:28 04:15 WBC RBC Hgb Hct MCV MCH MCHC RDW RDW Differential Plt Count MPV Immature Gran % (Auto) Neut % (Auto) Lymph % (Auto) [place] % (Auto) Eos % (Auto) Baso % (Auto) Absolute Neuts (auto) Absolute Lymphs (auto) Total Counted Differential Comment Toxic Granulation Eos Smear Total Cells PT 19.4 H INR 1.6 Sodium Potassium Chloride Carbon Dioxide Anion Gap BUN Creatinine Estim Creat Clear Calc Est GFR (MDRD) Af Amer Est GFR (MDRD) Non-Af BUN/Creatinine Ratio Glucose Hemoglobin A1c Lactic Acid Calcium Magnesium Urine Creatinine POC Glucose 157 H 121 H Blood Type Antibody Screen 04/23/18 04/23/18 04:15 04:15 WBC 11.8 H RBC 3.73 L Hgb 10.8 L Hct 34.2 L MCV 91.7 MCH 29.0 MCHC 31.6 L RDW 14.9 H RDW Differential 49.2 H Plt Count 99 L MPV 9.3 Immature Gran % (Auto) 0.300 Neut % (Auto) 84.7 H Lymph % (Auto) 5.1 L [place] % (Auto) 7.8 Eos % (Auto) 1.9 Baso % (Auto) 0.2 Absolute Neuts (auto) 10.0 H Absolute Lymphs (auto) 0.60 L Total Counted Not Reportable Differential Comment Toxic Granulation Eos Smear Total Cells PT INR Sodium 143 Potassium 4.1 Chloride 110 H Carbon Dioxide 23.0 Anion Gap 10 BUN 24 H Creatinine 1.48 H Estim Creat Clear Calc 29.55 Est GFR (MDRD) Af Amer 44 L Est GFR (MDRD) Non-Af 37 L BUN/Creatinine Ratio 16.2 Glucose 98 Hemoglobin A1c Lactic Acid Calcium 8.5 Magnesium Urine Creatinine POC Glucose Blood Type Antibody Screen Microbiology 04/21/18 03:00 Urine, Catheterized Urine Culture - Final Proteus mirabilis 04/21/18 01:10 Blood Culture (Wb) - Right Wrist Blood Culture - Preliminary 04/21/18 01:18 Blood Culture (Wb) - Right Hand Blood Culture - Preliminary 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 Reinitiate Coumadin therapy 2. Hydronephrosis management per urology 3. Continue to monitor blood counts on a daily basis 4. Increase activity as tolerated 5. Continue home BiPAP with sleep 6. Hemodynamically stable on room air. Will sign off from a critical care perspective IMPRESSIONS: 1. Septic shock secondary to Proteus mirabilis secondary to obstructive UTI Patient appears to have resolved. Patient did have need for transient pressor therapy following surgery. Patient has been doing well to this point. No pressors have been required. Fever is well controlled. Some improvement on creatinine compared to previous. Patient is on appropriate antibiotics at this time. 2. 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 We will continue to monitor. Patient does not have a history of previous stones. No indication for renal replacement therapy at this time. Hematuria has grossly resolved. Likely okay to reinitiate Coumadin therapy. 3. 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 INR was normalized by minimal dose of vitamin K. Will reinitiate Coumadin. Patient should have plenty of time to heal before she reaches therapeutic levels. 4. Lung nodule with history of metastatic breast cancer There is a 20 mm peripherally located shadow noted in the base of the left lobe. Differential would include round atelectasis, but given patient's history of metastatic breast cancer, an outpatient CT scan of the chest would be appropriate for evaluation of recurrence. This likely does not need to be completed as an inpatient. 5. Morbid obesity/diabetes mellitus type 2/obstructive sleep apnea Complicates care, management, recovery and prognosis. Patient can use home BiPAP while hospitalized. We will continue with Accu-Cheks q. before meals and at bedtime. 6. Consumptive thrombocytopenia Platelet count appears to be slowly recovering. Patient has had an elevated INR initially leading to hematuria. Patient is not reporting any pain to suggest a retroperitoneal hematoma at this time. Patient given a small dose of vitamin K with normalization of INR. Continue to monitor blood counts. Code Visit Inpatient E&M: 07649 Subs Hosp L3
[2018-04-23] MEDS: Budesonide Respules 0.5 MG/2 ML AMPUL.NEB. INHALATION ×2 (06:36→21:38)
[2018-04-23] MEDS: Levothyroxine 112 MCG Tablet PO (06:43)
[2018-04-23 07:31] LABS: Bedside Glucose 90 mg/dL (70-110)
[2018-04-23] MEDS: CHLORHEXIDINE GLUC 2% CLOTH 1 EACH TOWELETTE TOPICAL (10:00)
[2018-04-23] MEDS: Fluticasone 0.05% 1 SPRAY NASAL.SRY NASAL (10:15)
[2018-04-23] MEDS: Senna/Docusate Sodium 1 Tablet 2 TABLET PO ×2 (10:15→21:54)
[2018-04-23] MEDS: Montelukast 10 MG Tablet PO (10:15)
[2018-04-23 11:46] LABS: Bedside Glucose 127 mg/dL (70-110)
--- NOTE | 2018-04-23 12:12 | PCM.PN.HOSP ---
Patient Problems: Active and Suspected Problems Septic shock (Acute) UTI (Acute) Left proximal ureteral stone (Acute) Subjective: No pain. Breathing well. Does not like the restricted diet. Vitals/I&O's: Vital Signs Temp Pulse Resp BP Pulse Ox 36.6 C 88 16 123/79 H 94 04/23/18 07:29 04/23/18 07:29 04/23/18 07:29 04/23/18 07:29 04/23/18 07:29 Oxygen Flow Rate (L/min) 3 Oxygen Delivery Method CPAP Weight: 124.6 kg Body Mass Index (BMI) 45.7 Finger Stick Blood Glucose 155 Intake and Output for Last 24 Hours 04/21/18 04/22/18 04/23/18 23:59 23:59 23:59 Intake Total 1794.5 / 1794.5 4373 / 4373 900 / 900 Output Total 250 / 250 2725 / 2725 1375 / 1375 Balance 1544.5 / 1544.5 1648 / 1648 -475 / -475 General: Alert, No apparent distress HEENT: Atraumatic, Normocephalic Oral: Moist Mucosa, No Gingival or Mucosal Lesions/ Ulcerations Neck: No Nodes, Thyroid Normal Size and Texture Lungs: Clear to auscultation, Normal air movement, No rhonchi, No wheeze Cardiovascular: Regular rate, Regular Rhythm, Normal S1, Normal S2, No murmurs Abdomen: Bowel Sounds Present, Soft, Non Tender, Non-Distended, No Hepato-splenomegaly Psych/Mental Status: Normal Affect, Appropriate Microbiology Past 72 Hours 04/21/18 01:18 Blood Culture (Wb) - Right Hand Blood Culture - Preliminary Proteus mirabilis 04/21/18 03:00 Urine, Catheterized Urine Culture - Final Proteus mirabilis 04/21/18 01:10 Blood Culture (Wb) - Right Wrist Blood Culture - Preliminary Laboratory Results 04/22/18 15:30: Urine Creatinine 41.40 04/22/18 16:40: Eos Smear Total Cells Pending 04/22/18 16:40: POC Glucose 157 H 04/22/18 21:28: POC Glucose 121 H 04/23/18 04:15: PT 19.4 H, INR 1.6 04/23/18 04:15: WBC 11.8 H, RBC 3.73 L, Hgb 10.8 L, Hct 34.2 L, MCV 91.7, MCH 29.0, MCHC 31.6 L, RDW 14.9 H, RDW Differential 49.2 H, Plt Count 99 L, MPV 9.3, Immature Gran % (Auto) 0.300, Neut % (Auto) 84.7 H, Lymph % (Auto) 5.1 L, [place] % (Auto) 7.8, Eos % (Auto) 1.9, Baso % (Auto) 0.2, Absolute Neuts (auto) 10.0 H, Absolute Lymphs (auto) 0.60 L, Total Counted Not Reportable 04/23/18 04:15: Sodium 143, Potassium 4.1, Chloride 110 H, Carbon Dioxide 23.0, Anion Gap 10, BUN 24 H, Creatinine 1.48 H, Estim Creat Clear Calc 29.55, Est GFR (MDRD) Af Amer 44 L, Est GFR (MDRD) Non-Af 37 L, BUN/Creatinine Ratio 16.2, Glucose 98, Calcium 8.5 04/23/18 07:25: POC Glucose 90 04/23/18 11:36: POC Glucose 127 H Current Medications Atorvastatin Calcium (Lipitor) 20 mg PO QHS [facility] Last Admin: 04/22/18 21:34 Dose: 20 mg Budesonide (Pulmicort Aerosol) 0.5 mg INHALATION Q12H.RT [facility] Last Admin: 04/23/18 06:36 Dose: 0.5 mg Chlorhexidine Gluconate () 1 each TOPICAL DAILY [facility] Last Admin: 04/23/18 10:00 Dose: 1 each Clonazepam (Klonopin) 1 mg PO DAILY PRN PRN PRN Reason: restless leg syndrome Dextrose (D50w Syringe) 0 gm IV X1 PRN; Protocol PRN Reason: Hypoglycemia Fentanyl Citrate (Sublimaze (100mcg Ampule)) 50 mcg IV Q2H PRN PRN PRN Reason: PAIN Fluticasone Propionate (Flonase Nasal [place]) 1 spray NASAL DAILY [facility] Last Admin: 04/23/18 10:15 Dose: 1 spray Glucagon () 1 mg IM .X1 PRN PRN Reason: Hypoglycemia Sodium Chloride () 250 mls @ 15 mls/hr IV .[id number] PRN PRN Reason: SALINE FLUSH Ceftriaxone Sodium 2 gm/ (Sodium Chloride) 50 mls @ 100 mls/hr IV DAILY@2200 [facility] Last Admin: 04/22/18 21:34 Dose: 100 mls/hr Ibuprofen (Motrin) 400 mg PO Q6H PRN PRN PRN Reason: fever>100.4 F Insulin Human Lispro (Humalog Kwikpen (Bkc)) 0 unit SQ ACHS [facility]; Protocol Last Admin: 04/23/18 11:38 Dose: Not Given Levothyroxine Sodium (Synthroid) 112 mcg PO DAILY@0600 [facility] Last Admin: 04/23/18 06:43 Dose: 112 mcg Montelukast Sodium (Singulair) 10 mg PO DAILY [facility] Last Admin: 04/23/18 10:15 Dose: 10 mg Senna/Docusate Sodium (Senokot-S, [place]-Colace) 2 tablet PO BID [facility] Last Admin: 04/23/18 10:15 Dose: 2 tablet Sodium Chloride () 5 - 15 ml IV UD PRN PRN Reason: SALINE FLUSH Sodium Chloride () 10 - 40 ml IV UD PRN PRN Reason: MULTILUMEN/HICMAN CATH FLUSH Last Admin: 04/23/18 06:46 Dose: 20 ml Tramadol HCl (Ultram) 50 mg PO Q12H PRN PRN PRN Reason: PAIN Last Admin: 04/22/18 04:18 Dose: 50 mg Warfarin Sodium (Coumadin (Pbkc)) 2.5 mg PO MoFr@1700 [facility] Warfarin Sodium (Coumadin (Pbkc)) 3 mg PO SuTuWeThSa@1700 [facility] Medical Necessity - Tobacco Use Smoking Status: Never smoker Assessment/Plan All Active Problems Septic shock (Acute) UTI (Acute) Left proximal ureteral stone (Acute) Wound infection after surgery (Resolved) Hematoma following procedure (Resolved) Open left ankle fracture (Acute) Fall (Acute) Femur fracture, left (Resolved) 1. septic shock 2/2 UTI and bacteremia continue CTX off Levophed since 04/21 2. UTI UTI likely associated with stone + Proteus Ceftriaxone. 3. Bacteremia Proteus in BCx on the 2/2 sets, noted to be + at 1553 on 04/21 repeat BCx on pending. most likely 2/2 UTI ensure sterility prior to DC 4. ENRIQUE most likely post renal, but also could be prerenal/ATN due to shock. Improved check urine studies continue IVF continue to hold diuretics monitor no need for [employer] LEAD 5. Left ureteral stone s/p stent on 04/21 follow up urology as outpt 6. hematuria resolved 2/2 stone, stent and slightly supratherapuetic INR received vitamin K 2.5mg today monitor continue johnson until hematuria resolved. No need for irrigation at this time, unless starts to be misty blood (currently, blood-tinged) 7. Coagulopathy Received vitamin K on 04/22 INR trending down, Coumadin started back up now that hematuria has resolved. Monitor hold coumadin until hematuria resolved 8. DVT proph: anticoagulated add SCDs Liberalize diet. Code Visit Inpatient E&M: 15563 Subs Hosp L2
--- NOTE | 2018-04-23 12:16 | PN_ITS ---
Patient Problems: Active and Suspected Problems Septic shock (Acute) UTI (Acute) Left proximal ureteral stone (Acute) Subjective: No pain. Breathing well. Does not like the restricted diet. Vitals/I&O's: Vital Signs Temp Pulse Resp BP Pulse Ox 36.6 C 88 16 123/79 H 94 04/23/18 07:29 04/23/18 07:29 04/23/18 07:29 04/23/18 07:29 04/23/18 07:29 Oxygen Flow Rate (L/min) 3 Oxygen Delivery Method CPAP Weight: 124.6 kg Body Mass Index (BMI) 45.7 Finger Stick Blood Glucose 155 Intake and Output for Last 24 Hours 04/21/18 04/22/18 04/23/18 23:59 23:59 23:59 Intake Total 1794.5 / 1794.5 4373 / 4373 900 / 900 Output Total 250 / 250 2725 / 2725 1375 / 1375 Balance 1544.5 / 1544.5 1648 / 1648 -475 / -475 General: Alert, No apparent distress HEENT: Atraumatic, Normocephalic Oral: Moist Mucosa, No Gingival or Mucosal Lesions/ Ulcerations Neck: No Nodes, Thyroid Normal Size and Texture Lungs: Clear to auscultation, Normal air movement, No rhonchi, No wheeze Cardiovascular: Regular rate, Regular Rhythm, Normal S1, Normal S2, No murmurs Abdomen: Bowel Sounds Present, Soft, Non Tender, Non-Distended, No Hepato- splenomegaly Psych/Mental Status: Normal Affect, Appropriate Microbiology Past 72 Hours 04/21/18 01:18 Blood Culture (Wb) - Right Hand Blood Culture - Preliminary Proteus mirabilis 04/21/18 03:00 Urine, Catheterized Urine Culture - Final Proteus mirabilis 04/21/18 01:10 Blood Culture (Wb) - Right Wrist Blood Culture - Preliminary Laboratory Results 04/22/18 15:30: Urine Creatinine 41.40 04/22/18 16:40: Eos Smear Total Cells Pending 04/22/18 16:40: POC Glucose 157 H 04/22/18 21:28: POC Glucose 121 H 04/23/18 04:15: PT 19.4 H, INR 1.6 04/23/18 04:15: WBC 11.8 H, RBC 3.73 L, Hgb 10.8 L, Hct 34.2 L, MCV 91.7, MCH 29.0, MCHC 31.6 L, RDW 14.9 H, RDW Differential 49.2 H, Plt Count 99 L, MPV 9.3, Immature Gran % (Auto) 0.300, Neut % (Auto) 84.7 H, Lymph % (Auto) 5.1 L, [place] % (Auto) 7.8, Eos % (Auto) 1.9, Baso % (Auto) 0.2, Absolute Neuts (auto) 10.0 H, Absolute Lymphs (auto) 0.60 L, Total Counted Not Reportable 04/23/18 04:15: Sodium 143, Potassium 4.1, Chloride 110 H, Carbon Dioxide 23.0, Anion Gap 10, BUN 24 H, Creatinine 1.48 H, Estim Creat Clear Calc 29.55, Est GFR (MDRD) Af Amer 44 L, Est GFR (MDRD) Non-Af 37 L, BUN/Creatinine Ratio 16.2, Glucose 98, Calcium 8.5 04/23/18 07:25: POC Glucose 90 04/23/18 11:36: POC Glucose 127 H Current Medications Atorvastatin Calcium (Lipitor) 20 mg PO QHS [facility] Last Admin: 04/22/18 21:34 Dose: 20 mg Budesonide (Pulmicort Aerosol) 0.5 mg INHALATION Q12H.RT [facility] Last Admin: 04/23/18 06:36 Dose: 0.5 mg Chlorhexidine Gluconate () 1 each TOPICAL DAILY [facility] Last Admin: 04/23/18 10:00 Dose: 1 each Clonazepam (Klonopin) 1 mg PO DAILY PRN PRN PRN Reason: restless leg syndrome Dextrose (D50w Syringe) 0 gm IV X1 PRN; Protocol PRN Reason: Hypoglycemia Fentanyl Citrate (Sublimaze (100mcg Ampule)) 50 mcg IV Q2H PRN PRN PRN Reason: PAIN Fluticasone Propionate (Flonase Nasal [place]) 1 spray NASAL DAILY [facility] Last Admin: 04/23/18 10:15 Dose: 1 spray Glucagon () 1 mg IM .X1 PRN PRN Reason: Hypoglycemia Sodium Chloride () 250 mls @ 15 mls/hr IV .[id number] PRN PRN Reason: SALINE FLUSH Ceftriaxone Sodium 2 gm/ (Sodium Chloride) 50 mls @ 100 mls/hr IV DAILY@2200 [facility] Last Admin: 04/22/18 21:34 Dose: 100 mls/hr Ibuprofen (Motrin) 400 mg PO Q6H PRN PRN PRN Reason: fever>100.4 F Insulin Human Lispro (Humalog Kwikpen (Bkc)) 0 unit SQ ACHS [facility]; Protocol Last Admin: 04/23/18 11:38 Dose: Not Given Levothyroxine Sodium (Synthroid) 112 mcg PO DAILY@0600 [facility] Last Admin: 04/23/18 06:43 Dose: 112 mcg Montelukast Sodium (Singulair) 10 mg PO DAILY [facility] Last Admin: 04/23/18 10:15 Dose: 10 mg Senna/Docusate Sodium (Senokot-S, Yola-Colace) 2 tablet PO BID [facility] Last Admin: 04/23/18 10:15 Dose: 2 tablet Sodium Chloride () 5 - 15 ml IV UD PRN PRN Reason: SALINE FLUSH Sodium Chloride () 10 - 40 ml IV UD PRN PRN Reason: MULTILUMEN/HICMAN CATH FLUSH Last Admin: 04/23/18 06:46 Dose: 20 ml Tramadol HCl (Ultram) 50 mg PO Q12H PRN PRN PRN Reason: PAIN Last Admin: 04/22/18 04:18 Dose: 50 mg Warfarin Sodium (Coumadin (Pbkc)) 2.5 mg PO MoFr@1700 [facility] Warfarin Sodium (Coumadin (Pbkc)) 3 mg PO SuTuWeThSa@1700 [facility] Medical Necessity - Tobacco Use Smoking Status: Never smoker Assessment/Plan All Active Problems Septic shock (Acute) UTI (Acute) Left proximal ureteral stone (Acute) Wound infection after surgery (Resolved) Hematoma following procedure (Resolved) Open left ankle fracture (Acute) Fall (Acute) Femur fracture, left (Resolved) 1. septic shock 2/2 UTI and bacteremia continue CTX off Levophed since 04/21 2. UTI UTI likely associated with stone + Proteus Ceftriaxone. 3. Bacteremia Proteus in BCx on the 2/2 sets, noted to be + at 1553 on 04/21 repeat BCx on pending. most likely 2/2 UTI ensure sterility prior to DC 4. ENRIQUE most likely post renal, but also could be prerenal/ATN due to shock. Improved check urine studies continue IVF continue to hold diuretics monitor no need for [employer] 5. Left ureteral stone s/p stent on 04/21 follow up urology as outpt 6. hematuria resolved 2/2 stone, stent and slightly supratherapuetic INR received vitamin K 2.5mg today monitor continue johnson until hematuria resolved. No need for irrigation at this time, unless starts to be misty blood (currently, blood-tinged) 7. Coagulopathy Received vitamin K on 04/22 INR trending down, Coumadin started back up now that hematuria has resolved. Monitor hold coumadin until hematuria resolved 8. DVT proph: anticoagulated add SCDs Liberalize diet. Code Visit Inpatient E&M: 45503 Subs Hosp L2
[2018-04-23 16:26] LABS: Bedside Glucose 131 mg/dL (70-110)
[2018-04-23] MEDS: Insulin Lispro 100 UNIT/ML INSULN.PEN SQ (21:54)
[2018-04-23] MEDS: Atorvastatin Calcium 20 MG Tablet PO (21:54)
[2018-04-23 22:11] LABS: Bedside Glucose 156 mg/dL (70-110)
[2018-04-24] VITALS (12 sets, daily range): BP systolic 126–156; BP diastolic 69–87; PULSE 78–96; RESP 16; TEMP 36.7–37.2; O2SAT 93–96
[2018-04-24] MEDS: 0.9% NaCl Peripheral Flush Adult/Peds IV ×2 (04:23→04:25)
[2018-04-24 04:47] LABS: International Normalized Ratio 1.3; Prothrombin Time (Protime)PT. 15.7 SECONDS (11.7-14.9)
[2018-04-24 04:48] LABS: Absolute Lymphocyte Count 0.54 X10^3/ul (0.83-4.51); Absolute Neutrophil Count 8.3 X10^3/uL (2.0-7.7); Basophil# 0.02 X10^3/uL; Basophil% 0.2 % (0-1); Eosinophil# 0.24 X10^3/uL; Eosinophils% 2.3 % (0-5); Hematocrit 34.2 % (37-47); Hemoglobin 10.9 g/dl (12.0-15.0); Lymphocyte # 0.54 X10^3/ul (4.0); Lymphocyte % 5.2 % (19-41); Mean Corp Hgb Conc 31.9 g/gl (32-36); Mean Corpuscular Hgb 28.8 pg (27.0-32.0); Mean Corpuscular Volume 90.2 fL (81-99); Mean Platelet Vol. 9.5 fl (6.2-12.0); Monocyte% 11.6 % (0-10); Neutrophil # 8.32 X10^3/uL (2.7-7.7); Neutrophil % 80.1 % (47-70); Platelet Count 102 K/mm3 (150-450); RBC Distribution Width CV 14.9 % (11.6-14.6); RBC Distribution Width SD 48.5 fl (35.1-43.9); Red Blood Count 3.79 M/mm3 (4.2-5.4); White Blood Count 10.4 K/mm3 (4.4-11.0)
[2018-04-24 04:49] LABS: Differential Indicated SCAN CRITERIA MET; POSITIVE COUNT NO; POSITIVE DIFFERENTIAL YES; POSITIVE MORPHOLOGY NO
[2018-04-24 04:53] LABS: Anion Gap 8 (5-15); BUN 19 mg/dL (7-18); BUN/Creat Ratio 14.8 RATIO (10-20); Calcium,Total 8.5 mg/dL (8.5-10.1); Chloride 108 mmol/L (98-107); Creatinine, Serum 1.28 mg/dL (0.55-1.02); EST Glomerular Filtration Rate 43 mL/min (>60); Est Glom Filt Rate - Afr Amer 52 mL/min (>60); Estimated Creatinine Clearance 34.17 ml/min; Glucose 129 mg/dL (74-106); Potassium 4.1 mmol/L (3.5-5.1); Sodium Level 142 mmol/L (136-145)
[2018-04-24] MEDS: Levothyroxine 112 MCG Tablet PO (06:36)
[2018-04-24 06:45] LABS: Bedside Glucose 130 mg/dL (70-110)
[2018-04-24] MEDS: Budesonide Respules 0.5 MG/2 ML AMPUL.NEB. INHALATION (07:11)
[2018-04-24 08:47] LABS: Pathologist Review Reviewed
[2018-04-24] MEDS: Fluticasone 0.05% 1 SPRAY NASAL.SRY NASAL (10:42)
--- NOTE | 2018-04-24 11:01 | PN_ITS ---
Patient Problems: Active and Suspected Problems Septic shock (Acute) UTI (Acute) Left proximal ureteral stone (Acute) Subjective: Patient with no acute events overnight per self and per nursing report. She states feeling markedly improved since initial presentation. Patient with Johnson catheter discontinuation per discussion with urology to which patient is amenable. Discussed the fact that patient currently restarted on her Coumadin secondary to dilution of prior noted hematuria however need to initiate also therapeutic Lovenox overlap given patient is on this therapy for history of VTE, recurrent. Patient amenable to this and has done this prior with plan for continued evaluation to assure no recurrent market hematuria with likely discharge to home in a.m. if remains appropriate. Patient denies fevers, chills, nausea, emesis, abdominal pain, chest pain or dyspnea. Objective: Physical Examination: General: awake, alert, oriented x 3 and cooperative, seated upright in bedside chair, in no apparent distress. Skin: normal color, turgor, no icterus, cyanosis. HEENT: AT/NC, EOMI, PERRLA, MMM. Lungs: CTA bilaterally, moderate effort, mild decrease BL bases, no rales, ronchi or wheezing. Heart: Regular rate and rhythm; no gallop, rub audible. Abdomen: soft, morbidly obese, NTTP, ND, normal BS. Extremities: no cyanosis, clubbing, mild BL ankle edema. Neurological: patient awake, alert, oriented x 3; cognitive function intact; pupils equally reactive to light and accomodation; cranial nerves II-XII grossly normal, moving all 4 extremities, no focal deficits, strength improving, moderately globally decreased. Psychiatric: affect appears normal, no acute evidence of depressive or anxiety feelings. Vitals/I&O's: Vital Signs Temp Pulse Resp BP Pulse Ox 98.1 F 81 16 138/69 H 94 04/24/18 10:01 04/24/18 10:01 04/24/18 10:01 04/24/18 10:04/24/18 10:01 Oxygen Flow Rate (L/min) 3 Oxygen Delivery Method Room Air Weight: 311 lb 15.265 oz Body Mass Index (BMI) 45.7 Finger Stick Blood Glucose 155 Intake and Output for Last 24 Hours 04/22/18 04/23/18 04/24/18 23:59 23:59 23:59 Intake Total 4373 / 4373 1370 / 1370 100 / 100 Output Total 2725 / 2725 3125 / 3125 1400 / 1400 Balance 1648 / 1648 -1755 / -1755 -1300 / -1300 Microbiology Past 72 Hours 04/21/18 01:10 Blood Culture (Wb) - Right Wrist Blood Culture - Final 04/21/18 01:18 Blood Culture (Wb) - Right Hand Blood Culture - Final Proteus mirabilis 04/21/18 03:00 Urine, Catheterized Urine Culture - Final Proteus mirabilis Laboratory Results 04/20/18 23:30: Diff Path Review Reviewed 04/23/18 11:36: POC Glucose 127 H 04/23/18 16:21: POC Glucose 131 H 04/23/18 21:50: POC Glucose 156 H 04/24/18 04:20: WBC 10.4, RBC 3.79 L, Hgb 10.9 L, Hct 34.2 L, MCV 90.2, MCH 28.8, MCHC 31.9 L, RDW 14.9 H, RDW Differential 48.5 H, Plt Count 102 L, MPV 9.5, Immature Gran % (Auto) 0.600, Neut % (Auto) 80.1 H, Lymph % (Auto) 5.2 L, [place] % (Auto) 11.6 H, Eos % (Auto) 2.3, Baso % (Auto) 0.2, Absolute Neuts (auto) 8.3 H, Absolute Lymphs (auto) 0.54 L, Total Counted Not Reportable 04/24/18 04:20: PT 15.7 H, INR 1.3 04/24/18 04:20: Sodium 142, Potassium 4.1, Chloride 108 H, Carbon Dioxide 26.0, Anion Gap 8, BUN 19 H, Creatinine 1.28 H, Estim Creat Clear Calc 34.17, Est GFR (MDRD) Af Amer 52 L, Est GFR (MDRD) Non-Af 43 L, BUN/Creatinine Ratio 14.8, Glucose 129 H, Calcium 8.5 04/24/18 06:34: POC Glucose 130 H Current Medications Atorvastatin Calcium (Lipitor) 20 mg PO QHS [facility] Last Admin: 04/23/18 21:54 Dose: 20 mg Budesonide (Pulmicort Aerosol) 0.5 mg INHALATION Q12H.RT [facility] Last Admin: 04/24/18 07:11 Dose: 0.5 mg Clonazepam (Klonopin) 1 mg PO DAILY PRN PRN PRN Reason: restless leg syndrome Dextrose (D50w Syringe) 0 gm IV X1 PRN; Protocol PRN Reason: Hypoglycemia Fluticasone Propionate (Flonase Nasal [place]) 1 spray NASAL DAILY [facility] Last Admin: 04/24/18 10:42 Dose: 1 spray Glucagon () 1 mg IM .X1 PRN PRN Reason: Hypoglycemia Ceftriaxone Sodium 2 gm/ (Sodium Chloride) 50 mls @ 100 mls/hr IV DAILY@2200 [facility] Last Admin: 04/23/18 21:54 Dose: 100 mls/hr Sodium Chloride () 250 mls @ 15 mls/hr IV .[id number] PRN PRN Reason: SALINE FLUSH Insulin Human Lispro (Humalog Kwikpen (Bkc)) 0 unit SQ ACHS [facility]; Protocol Last Admin: 04/24/18 06:36 Dose: Not Given Levothyroxine Sodium (Synthroid) 112 mcg PO DAILY@0600 [facility] Last Admin: 04/24/18 06:36 Dose: 112 mcg Montelukast Sodium (Singulair) 10 mg PO DAILY [facility] Last Admin: 04/24/18 10:42 Dose: Not Given Senna/Docusate Sodium (Senokot-S, [place]-Colace) 2 tablet PO BID [facility] Last Admin: 04/24/18 10:42 Dose: Not Given Sodium Chloride () 5 - 15 ml IV UD PRN PRN Reason: SALINE FLUSH Last Admin: 04/24/18 04:25 Dose: 10 ml Sodium Chloride () 10 - 40 ml IV UD PRN PRN Reason: MULTILUMEN/HICMAN CATH FLUSH Last Admin: 04/23/18 21:55 Dose: 20 ml Tramadol HCl (Ultram) 50 mg PO Q12H PRN PRN PRN Reason: PAIN Last Admin: 04/22/18 04:18 Dose: 50 mg Warfarin Sodium (Coumadin (Pbkc)) 2.5 mg PO MoFr@1700 [facility] Warfarin Sodium (Coumadin (Pbkc)) 3 mg PO SuTuWeThSa@1700 [facility] Last Admin: 04/23/18 16:32 Dose: 3 mg Medical Necessity - Tobacco Use Smoking Status: Never smoker Assessment/Plan All Active Problems Septic shock (Acute) UTI (Acute) Left proximal ureteral stone (Acute) Wound infection after surgery (Resolved) Hematoma following procedure (Resolved) Open left ankle fracture (Acute) Fall (Acute) Femur fracture, left (Resolved) The patient is a 77 y/o F w/ PMHx: Morbid Obesity, HTN, HLD, OA, 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 (1) Septic Shock secondary to Complicated Proteus Pyelonephritis with Proteus Bacteremia secondary to Left Ureterolithiasis w/ Hydronephrosis w/ Associated Hematuria: Admission CBC w/ WBC 19.2, Hgb 11.1, Plts 142 with L shift, , LA 3.0-->repeat 1.7, BMP w/ BUN/Cr 37/2.34, CT A/P w/ 6 x 3 mm proximal left ureteral stone with mild hydronephrosis and hydroureter, chest x-ray with atelectasis left base, urinalysis with leukocytes, nitrates, blood, 10-25 WBC, 5-10 RBC, 2+ bacteria, urine culture and blood culture x2 pending, initially mid to the ICU with IV Levophed to maintain blood pressure, ICU consulted, patient clinically improved, urology consulted w/ 04/21/18 Cystoscopy and left stent placement, johnson placed and maintained. Given clinical improvement and transition of pressors, transitioned to the PCU, discussed improvement w/ Urology and clearance for johnson catheter removal. UCx, Bld Cx w/ proteus, repeat Bld Cx 04/22/18 NGTD nearing 48 hours silvino. Given resolution of hematuria, will in addition to coumadin start therapeutic lovenox. Plan discharge to home in AM on 7 day additional course duracef if remains appropriate. (2) Acute kidney injury on CKD stage III: Secondary to acute presentation #1 w/ septic shock, complicated by pyelonephritis with obstructive uropathy. Admission BUN/Cr 37/2.34, prior baseline creatinine noted to be 1.1-1.5. Hydrated, held nephrotoxic medications, repeat function improved, 04/24/18 BUN/Cr 19/.28, continue to trend. (3) Supratherapeutic INR: Admission INR 3.5-->4.1, coumadin held, INR trended, coumadin restarted 04/23/18 given resolution of hematuria and INR 1.3, continue to trend INR, monitor for recurrent hematuria in addition to overlapping lovenox. (4) Incidental Lung Nodule: Patient with a 20 mm peripherally located shadow at the base of the left lobe possibly secondary to round atelectasis but given history of metastatic cancer will plan follow-up with pulmonary for outpatient CT scan. (5) Consumptive thrombocytopenia: Platelet trend initially 152-->14 2-->86-->99-->102, continue to trend, appears to be improving. (6) Diabetes mellitus type II: Hold oral home regimen, continue home insulin regimen, HgbA1c 7.5% ADA diet, accu checks w/ ISS, nutrition consultation for education and teaching. (7) Hypothyroidism: Continue home synthroid regimen. (8) Morbid Obesity: Weight loss and lifestyle changes encouraged, nutrition consulted. (9) Anxiety and Depression: Continue home regimen Klonopin and Wellbutrin. (10) Hypertension: Given resolution of acute initial presentation of ENRIQUE, septic shock requiring pressors will restart patient home Aldactone, Lasix given with as needed IV hydralazine. (11) Hyperlipidemia: Continue home statin regimen. (12) History of VTE, PEs: Supratherapeutic INR upon presentation, held transiently, restarted once dilution of hematuria and appropriate INR, continue to monitor INR, add therapeutic Lovenox with continued close monitoring for recurrent hematuria, pending case management assessment for cost of bridge upon discharge. (13) YOLY: BIPAP q HS. (14) DVT prophylaxis: SCDs, therapeutic Lovenox. Code Visit Inpatient E&M: 75470 Subs Hosp L3
[2018-04-24 12:05] LABS: Bedside Glucose 137 mg/dL (70-110)
--- NOTE | 2018-04-24 16:00 | CASEMGMT ---
Per Dr. Garcia, pt to be sent home on Lovenox to bridge her coumadin until INR is back to 2. Lovenox e-scribed to [facility] previously and per Driss at the pharmacy, the pt's co-pay is $10 at this time. Pt and Dr. Garcia to be made aware tomorrow am. Jasmin VILLAGRAN CM
[2018-04-24] MEDS: Enoxaparin 150 MG/ML Syringe 140 MG SC (17:10)
[2018-04-24 17:25] LABS: Bedside Glucose 120 mg/dL (70-110)
[2018-04-24] MEDS: Atorvastatin Calcium 20 MG Tablet PO (21:10)
[2018-04-24] MEDS: Senna/Docusate Sodium 1 Tablet 2 TABLET PO (21:10)
[2018-04-24] MEDS: traZODone 50 MG Tablet 150 MG PO (21:15)
[2018-04-24 22:10] LABS: Bedside Glucose 137 mg/dL (70-110)
[2018-04-25] VITALS (7 sets, daily range): BP systolic 135–145; BP diastolic 72–83; PULSE 72–89; RESP 16–18; TEMP 36.7–36.9; O2SAT 93–96
[2018-04-25 05:11] LABS: Hematocrit 33.1 % (37-47); Hemoglobin 10.5 g/dl (12.0-15.0); Mean Corp Hgb Conc 31.7 g/gl (32-36); Mean Corpuscular Hgb 28.6 pg (27.0-32.0); Mean Corpuscular Volume 90.2 fL (81-99); Mean Platelet Vol. 9.8 fl (6.2-12.0); Platelet Count 110 K/mm3 (150-450); RBC Distribution Width CV 14.8 % (11.6-14.6); Red Blood Count 3.67 M/mm3 (4.2-5.4); White Blood Count 7.3 K/mm3 (4.4-11.0)
[2018-04-25 05:13] LABS: Differential Indicated MANUAL DIFF; POSITIVE COUNT YES; POSITIVE DIFFERENTIAL NO; POSITIVE MORPHOLOGY YES
[2018-04-25 05:19] LABS: International Normalized Ratio 1.3; Prothrombin Time (Protime)PT. 16.3 SECONDS (11.7-14.9)
[2018-04-25 05:26] LABS: Anion Gap 8 (5-15); BUN 15 mg/dL (7-18); BUN/Creat Ratio 12.9 RATIO (10-20); Calcium,Total 8.5 mg/dL (8.5-10.1); Chloride 107 mmol/L (98-107); Creatinine, Serum 1.16 mg/dL (0.55-1.02); EST Glomerular Filtration Rate 48 mL/min (>60); Est Glom Filt Rate - Afr Amer 58 mL/min (>60); Estimated Creatinine Clearance 37.71 ml/min; Glucose 126 mg/dL (74-106); Potassium 3.5 mmol/L (3.5-5.1); Sodium Level 143 mmol/L (136-145)
[2018-04-25 06:00] LABS: Anisocytosis 1+; Blast 1 % (0-0); Eosinophil 3 % (0-5); Lymphocyte 12 % (19-41); Metamyelocyte 2 % (0-1); Monocyte 6 % (0-10); Neutrophil-Segmented 76 % (47-70); Total Cells Counted 100 (MANUAL DIFF)
[2018-04-25 06:01] LABS: Hypochromasia 1+; Microcytosis 1+
[2018-04-25 06:03] LABS: Platelet Estimate SLT DEC (ADEQ)
[2018-04-25] MEDS: Enoxaparin 150 MG/ML Syringe 140 MG SC (06:16)
[2018-04-25] MEDS: Levothyroxine 112 MCG Tablet PO (06:16)
[2018-04-25] MEDS: 0.9% NaCl Peripheral Flush Adult/Peds IV ×2 (06:16→06:17)
[2018-04-25 06:32] LABS: Absolute Lymphocyte Count 0.88 X10^3/ul (0.83-4.51); Absolute Neutrophil Count 5.5 X10^3/uL (2.0-7.7)
[2018-04-25 07:06] LABS: Bedside Glucose 121 mg/dL (70-110)
[2018-04-25 07:30] LABS: Bedside Glucose 57 mg/dL (70-110)
[2018-04-25 07:30] LABS: Bedside Glucose 73 mg/dL (70-110)
[2018-04-25] MEDS: Budesonide Respules 0.5 MG/2 ML AMPUL.NEB. INHALATION (07:42)
[2018-04-25] MEDS: Spironolactone 25 MG Tablet PO (08:27)
[2018-04-25] MEDS: buPROPion (XL) 150 MG TABLET.XL PO (08:27)
[2018-04-25] MEDS: Fluticasone 0.05% 1 SPRAY NASAL.SRY NASAL (08:27)
[2018-04-25] MEDS: Senna/Docusate Sodium 1 Tablet 2 TABLET PO (08:27)
[2018-04-25] MEDS: Anastrozole 1 MG Tablet PO (08:27)
[2018-04-25] MEDS: Montelukast 10 MG Tablet PO (08:27)
[2018-04-25] MEDS: Insulin Lispro 100 UNIT/ML INSULN.PEN SQ (11:17)
[2018-04-25 11:25] LABS: Bedside Glucose 171 mg/dL (70-110)
--- NOTE | 2018-04-25 12:25 | DS.PCM_ITS ---
Discharge Date and Diagnosis - Problem List Patient Problems: Active and Suspected Problems Septic shock (Acute) UTI (Acute) Left proximal ureteral stone (Acute) Date of Admission: 04/21/18 Date of Discharge: 04/25/18 - Primary Discharge Diagnosis Active and Suspected Problems (1) Septic Shock secondary to Complicated Proteus Pyelonephritis with Proteus Bacteremia secondary to Left Ureterolithiasis w/ Hydronephrosis w/ Associated Hematuria w/ Acute on Chronic Anemia secondary to Blood Loss (2) Acute kidney injury on CKD stage III (3) Supratherapeutic INR (4) Incidental Lung Nodule (5) Consumptive thrombocytopenia (6) Diabetes mellitus type II (7) Hypothyroidism (8) Morbid Obesity (9) Anxiety and Depression (10) Hypertension (11) Hyperlipidemia (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 Pizarro ICU Dr. Estes Urology Operations: - - 04/21/18 Cystoscopy and left stent placement per Dr. Estes. Procedures: Central line placement, EKG Summary of Care Provided: The patient is a 77 y/o F w/ PMHx: Morbid Obesity, HTN, HLD, OA, History of VTE and PE on chronic coumadin therapy, Diabetes mellitus type II, Hypothyroidism, YOLY, RLS, History of Metastatic Breast CA who presented to the [facility] ED on 04/21/18 for history of worsening flank pain x 2 days, BL, 01/04, intermittent w/ burning sensation, increased frequency, hematuria. Admission CBC w/ WBC 19.2, Hgb 11.1, Plts 142 with L shift, , LA 3.0-->repeat 1.7, BMP w/ BUN/Cr 37/2.34, CT A/P w/ 6 x 3 mm proximal left ureteral stone with mild hydronephrosis and hydroureter, chest x-ray with atelectasis left base, urinalysis with leukocytes, nitrates, blood, 10-25 WBC, 5-10 RBC, 2+ bacteria, urine culture and blood culture x2 w/ eventual proteus growth UCx and 03/29 Bld Cx from 04/21/18 Proteus as well, initially admitted to the ICU with IV Levophed to maintain blood pressure with septic shock presentation, ICU consulted, patient clinically improved, urology consulted w/ 04/21/18 Cystoscopy and left stent placement, johnson placed and maintained. Given clinical improvement and transition off pressors, transitioned to the PCU, 04/24/18 discussed improvement w/ Urology and clearance for johnson catheter removal with appropriate urination following without replacement need. Repeat Bld Cx 04/22/18 NGTD > 48 hours silvino. Given resolution of hematuria as had been reversed upon presentation with supratherapeutic INR, coumadin re-started and also 04/24/18 added therapeutic lovenox given VTE history until INR therapeutic. Upon discharge transitioned to Duracef renally dosed w/ planned additional 7 day regimen given repeat Bld Cx negative. Acute kidney injury on CKD stage III, secondary to acute presentation w/ septic shock, complicated by pyelonephritis with obstructive uropathy w/ admission BUN/Cr 37/2.34, prior baseline creatinine noted to be 1.1-1.5. Hydrated, held nephrotoxic medications, repeat function improved, 04/25/18 BUN/Cr 15/1.16. Upon admission as noted, Supratherapeutic INR w/ admission INR 3.5-->4.1, coumadin held, vitamin K administered given hematuria, INR trended, coumadin restarted 04/23/18 given resolution of hematuria and INR 1.3, started on bridging lovenox given VTE history without recurrent hematuria, continued upon discharge w/ recommendation continuation until INR 2 or >. During admission patient with a 20 mm peripherally located shadow at the base of the left lobe possibly secondary to round atelectasis but given history of metastatic cancer requested follow-up with pulmonary for outpatient CT scan and continuation of follow-up. Patient discharged to home in improved clinical condition with recommended follow-up with primary care within 3-5 days with recommendation of repeat MP as well as CBC with differential secondary to noted 1% blast cells on last CBC which per discussion with oncology, Dr. John noted likely was just immature cells but read this way secondary to machine with recognition for repeat outpatient addition to pulmonary medicine as noted for follow-up evaluation for incidentally noted pulmonary nodule to urology within 1 week. DAY OF DISCHARGE PROGRESS NOTE: Subjective: Patient without acute event overnight per self and nursing report. She notes no urinary retention since Johnson discontinuation the day prior. She notes no recurrent hematuria since reinitiation of therapeutic Lovenox with Coumadin for bridging. Patient denies fever, chills, nausea, emesis, abdominal pain, chest pain or dyspnea. Patient agreeable to discharge to home given negative blood cultures and improved clinical status. Patient will be discharged with follow-up with primary care physician within 3-5 days in addition to [place] medicine within 2-4 weeks in addition to urology within 1 week. Objective: T 98, heart rate 89, BP 135/83, respiratory rate 16, 95% on room air. Physical Examination: General: awake, alert, oriented x 3 and cooperative, seated upright in bedside chair, in no apparent distress. Skin: normal color, turgor, no icterus, cyanosis except occasional staged ecchymoses secondary to lab draws likely. HEENT: AT/NC, EOMI, PERRLA, MMM. Lungs: CTA bilaterally, moderate effort, likely secondary to habitus, mild decrease BL bases, no rales, ronchi or wheezing. Heart: Regular rate and rhythm; no gallop, rub audible. Abdomen: soft, morbidly obese, NTTP, ND, normal BS. Extremities: no cyanosis, clubbing, mild BL ankle edema. Neurological: patient awake, alert, oriented x 3; cognitive function intact; pupils equally reactive to light and accomodation; cranial nerves II-XII grossly normal, moving all 4 extremities, no focal deficits, strength improving, mildly to moderately globally decreased. Psychiatric: affect appears normal, no acute evidence of depressive or anxiety feelings. Assessment and Plan: Please see hospital summary above. Patient Problems: Active and Suspected Problems Septic shock (Acute) UTI (Acute) Left proximal ureteral stone (Acute) - Physical Exam Vital Signs Temp Pulse Resp BP Pulse Ox 98.3 F 80 18 145/72 H 95 04/25/18 08:24 04/25/18 10:53 04/25/18 08:24 04/25/18 08:24 04/25/18 08:24 Oxygen Flow Rate (L/min) 3 Oxygen Delivery Method Room Air Weight: 307 lb 15.772 oz Body Mass Index (BMI) 45.7 Finger Stick Blood Glucose 155 Intake and Output for Last 24 Hours 04/23/18 04/24/18 04/25/18 23:59 23:59 23:59 Intake Total 1370 / 1370 1120 / 1120 300 / 300 Output Total 3125 / 3125 3025 / 3025 600 / 600 Balance -1755 / -1755 -1905 / -1905 -300 / -300 Microbiology Past 72 Hours 04/25/18 04:00 Gram Stain - Final Sputum, Expectorated/Coughed 04/22/18 15:45 Blood Culture - Preliminary Blood Culture (Wb) - Anticubital Right No growth in 48 hours. 04/22/18 15:35 Blood Culture - Preliminary Blood Culture (Wb) - Central Line No growth in 48 hours. 04/21/18 01:10 Blood Culture - Final Blood Culture (Wb) - Right Wrist 04/21/18 01:18 Blood Culture - Final Blood Culture (Wb) - Right Hand Proteus mirabilis 04/21/18 03:00 Urine Culture - Final Urine, Catheterized Proteus mirabilis Laboratory Tests Past 24 Hrs 04/25/18 04/25/18 04/25/18 05:00 05:00 05:00 WBC 7.3 RBC 3.67 L Hgb 10.5 L Hct 33.1 L MCV 90.2 MCH 28.6 MCHC 31.7 L RDW 14.8 H RDW Differential 48.0 H Plt Count 110 L MPV 9.8 Neut % (Auto) Not Reportable Absolute Neuts (auto) 5.5 Absolute Lymphs (auto) 0.88 Total Counted 100 Neutrophils % (Manual) 76 H Lymphocytes % (Manual) 12 L Monocytes % (Manual) 6 Eosinophils % (Manual) 3 Metamyelocytes % 2 H Blast Cells % 1 H* Diff Path Review May foll Platelet Estimate SLT DEC Hypochromasia 1+ Anisocytosis 1+ Microcytosis 1+ PT 16.3 H INR 1.3 Sodium 143 Potassium 3.5 Chloride 107 Carbon Dioxide 28.0 Anion Gap 8 BUN 15 Creatinine 1.16 H Estim Creat Clear Calc 37.71 Est GFR (MDRD) Af Amer 58 L Est GFR (MDRD) Non-Af 48 L BUN/Creatinine Ratio 12.9 Glucose 126 H Calcium 8.5 POC Glucose 04/25/18 04/25/18 04/24/18 11:15 07:02 21:06 POC Glucose 171 H 121 H 137 H 04/24/18 04/21/18 04/21/18 17:09 17:56 17:55 POC Glucose 120 H 73 57 L Home Medications: Medications to take at Discharge Levothyroxine [Synthroid] 112 mcg PO DAILY 01/24/14 Simvastatin [Zocor] 40 mg PO QHS 01/24/14 Anastrozole [Arimidex] 1 mg PO DAILY 03/17/15 Spironolactone [Aldactone] 25 mg PO DAILY #30 tablet 07/08/15 Furosemide [Lasix] 20 mg PO DAILY PRN 05/07/16 Montelukast [Singulair] 10 mg PO DAILY 05/07/16 traZODone [Desyrel] 150 mg PO QHS 05/07/16 Clonazepam [Klonopin] 1 mg PO DAILY PRN PRN #30 tablet 06/09/16 Fluticasone 0.05% [Flonase Nasal [place]] 1 spray NASAL DAILY 03/18/17 Fluticasone Propionate [Flovent Hfa] 12 gm IH BID 03/18/17 traMADol [Ultram] 50 mg PO Q6H PRN PRN 03/18/17 Warfarin [Coumadin] 2.5 mg PO MOFR 04/20/18 Warfarin [Coumadin] 3 mg PO SUTUWETHSA 04/20/18 Bupropion HCl [Bupropion Xl] 150 mg PO DAILY 04/22/18 Potassium Chloride 10 meq PO DAILY 04/22/18 Prednisone 2.5 mg PO DAILY 04/22/18 Cefadroxil [Duracef] 500 mg PO BID 7 Days #14 capsule 04/24/18 Enoxaparin [Lovenox] 140 mg SC Q12@0600,1800 #14 syringe 04/24/18 Following Prescrptions Were Given to Patient: Enoxaparin [Lovenox] 140 mg SC Q12@0600,1800 #14 syringe Cefadroxil [Duracef] 500 mg PO BID 7 Days #14 capsule Primary Care Physician: Ai Anguiano MD [Primary Care Provider] - Patient Instructions: Ureteral Stents, Understanding Kidney Stones, Identifying Kidney Stones, Discharge Instructions for Acute Kidney Injury, Discharge Instructions for Pyelonephritis, ED Nodule Solitary Pulmonary Disposition: Home Minutes spent on discharge:: 35 Patient Condition:: Fair Medical Necessity - Tobacco Use Smoking Status: Never smoker Meaningful Use Info Meaningful Use Diagnoses (Choose all that apply): None applicable Code Visit Inpatient E&M: 51471 Disch Hosp
--- NOTE | 2018-04-25 12:25 | DCINST_ITS ---
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 Your food should be the consistency of: Regular Your liquids should be the consistency of: Regular/Thin Discharge Activity: Return to Normal Activity May resume sexual activity in: - - May resume once cleared per Dr. Estes. Weight Bearing Status: Weight bearing as tolerated Call your doctor if you observe: Fever of 101 or Higher, Coldness, Increased Pain, Change in Color, Inability to urinate, Inability to have a bowel movement, Shortness of breath, Dizziness, Fainting spells, Chest pain, Uncontrolled pain Instructions: Discharge Instructions for Acute Kidney Injury, Discharge Instructions for Pyelonephritis, Understanding Kidney Stones, Identifying Kidney Stones, Ureteral Stents, ED Nodule Solitary Pulmonary Additional Instructions: During the admission you were evaluated for: (1) Infection of the kidney with kidney stone with associated infection in the blood stream: Please follow-up with Dr. Estes in 1 week to have re-evaluation and complete antibiotic therapy (duracel). Please have repeat complete blood count with differential with your primary care physician to assure normal counts. (2) Acute Kidney Injury: Secondary to the kidney infection and stone, improved, please have repeat basic metabolic panel with your primary care physician at follow-up. (3) Supratherapeutic INR: Your INR was notably elevated above goal initial with reversal secondary to blood in your urine. Your INR now is below the desired level, upon discharge INR 1.3, please continue the overlapping therapeutic lovenox until INR = or > 2 given your history of clots. (4) Incidental Lung Nodule: You had an incidentally noted small lung nodule on imaging performed during your admission. Given your history of cancer will have referred you to pulmonary to follow-up outpatient with CT chest. Allergies/Adverse Reactions: Allergies acetaminophen [From Vicodin] Allergy (Verified 04/20/18 22:56) Unknown codeine Allergy (Verified 04/20/18 22:56) Unknown hydrocodone bitartrate [From Vicodin] Allergy (Verified 04/20/18 22:56) Unknown Medications to take at Discharge Levothyroxine [Synthroid] 112 mcg PO DAILY 01/24/14 Simvastatin [Zocor] 40 mg PO QHS 01/24/14 Anastrozole [Arimidex] 1 mg PO DAILY 03/17/15 Spironolactone [Aldactone] 25 mg PO DAILY #30 tablet 07/08/15 Furosemide [Lasix] 20 mg PO DAILY PRN 05/07/16 Montelukast [Singulair] 10 mg PO DAILY 05/07/16 traZODone [Desyrel] 150 mg PO QHS 05/07/16 Clonazepam [Klonopin] 1 mg PO DAILY PRN PRN #30 tablet 06/09/16 Fluticasone 0.05% [Flonase Nasal [place]] 1 spray NASAL DAILY 03/18/17 Fluticasone Propionate [Flovent Hfa] 12 gm IH BID 03/18/17 traMADol [Ultram] 50 mg PO Q6H PRN PRN 03/18/17 Warfarin [Coumadin] 2.5 mg PO MOFR 04/20/18 Warfarin [Coumadin] 3 mg PO SUTUWETHSA 04/20/18 Bupropion HCl [Bupropion Xl] 150 mg PO DAILY 04/22/18 Potassium Chloride 10 meq PO DAILY 04/22/18 Prednisone 2.5 mg PO DAILY 04/22/18 Cefadroxil [Duracef] 500 mg PO BID 7 Days #14 capsule 04/24/18 Enoxaparin [Lovenox] 140 mg SC Q12@0600,1800 #14 syringe 04/24/18 The following prescriptions were given: Enoxaparin [Lovenox] 140 mg SC Q12@0600,1800 #14 syringe Cefadroxil [Duracef] 500 mg PO BID 7 Days #14 capsule Primary Care Physician: Ai Anguiano MD [Primary Care Provider] - Please follow up with your Primary Care Physician in: Follow-up within 3-5 days. Test Results: Test results from this visit will be discussed in further detail at your follow- up appointment, if applicable. Please Follow Up With: Robert Estes MD When: Follow-up 1 week. Please Follow Up With: Agustin Pizarro MD When: Follow-up in 2-4 weeks, may see [employer]/PA. Proposed Discharge Date: 04/25/18
[2018-04-26 09:28] LABS: Pathologist Review Reviewed
--- NOTE | 2018-04-26 15:32 | CASEMGMT ---
SPARKLE AMAYA Discharge F/U Phone Call LACE: 12 Strata: 4 Discharge date: 04/25/18 Call date: 04/26/18 Call time: [id number] Duration: 7 minutes Admission dx: Septic shock, UTI Pt states has been doing 'ok' since discharge and does c/o bright red blood in urine. Pt states that she notified PCP and that she attempted to reach Dr. Estes regarding same and will continue to do so. Pt states no questions regarding discharge instructions or medications at this time. Pt states that the 'staff was wonderful, but the cleaning lady could have been more thorough.' Pt states no further questions/concerns/needs at this time. Pt states plans to f/u when scheduled. [place] SPARKLE AMAYA
[2018-04-27 10:13] LABS: Eosinophil Ct. Urine 3 % (.)
== END 2018-04-25 15:30 | disposition home or self-care (01) | DRG 853 ==
LOC: ED 23:51 → ICU 04-21 04:28 → PCU 04-24 06:38 → ICU 04-24 09:45
PROVIDERS: Internal Medicine Critical Care Medicine; Urology; Admitting Provider Internal Medicine; Emergency Provider Emergency Medicine; Family Provider Internal Medicine; PCP Internal Medicine; Referring Provider Internal Medicine; Visit Provider Family Medicine
PROC: 0T778DZ Dilation of Left Ureter with Intraluminal Device, Via Natural or Artificial Opening Endoscopic (ICD-10-PCS; principal; 2018-04-21 16:40)
DX: A41.59 Other Gram-negative sepsis (principal); R65.21 Severe sepsis with septic shock; Z68.42 Body mass index [BMI] 45.0-49.9, adult; N17.9 Acute kidney failure, unspecified; N13.6 Pyonephrosis; C79.9 Secondary malignant neoplasm of unspecified site; D68.32 Hemorrhagic disorder due to extrinsic circulating anticoagulants; G47.33 Obstructive sleep apnea (adult) (pediatric); E66.01 Morbid (severe) obesity due to excess calories; E11.22 Type 2 diabetes mellitus with diabetic chronic kidney disease; I12.9 Hypertensive chronic kidney disease with stage 1 through stage 4 chronic kidney disease, or unspecified chronic kidney disease; N18.3 Chronic kidney disease, stage 3 (moderate); E03.9 Hypothyroidism, unspecified; E78.5 Hyperlipidemia, unspecified; F41.9 Anxiety disorder, unspecified; F32.9 Major depressive disorder, single episode, unspecified; D69.6 Thrombocytopenia, unspecified; B96.4 Proteus (mirabilis) (morganii) as the cause of diseases classified elsewhere; R91.1 Solitary pulmonary nodule; M19.90 Unspecified osteoarthritis, unspecified site; G25.81 Restless legs syndrome; C50.919 Malignant neoplasm of unspecified site of unspecified female breast; R31.0 Gross hematuria; T45.515A Adverse effect of anticoagulants, initial encounter; D50.0 Iron deficiency anemia secondary to blood loss (chronic); Z79.01 Long term (current) use of anticoagulants; Z86.711 Personal history of pulmonary embolism
CPT/HCPCS: 36556; 51702; 71045; 74176; 76000; 80048; 81001; 82570; 82962; 83036; 83605; 83735; 84439; 84443; 85025; 85610; 85730; 86850; 86900; 87040; 87070; 87077; 87086; 87088; 87106; 87186; 87205; 94002; 94640; 97110; 97161; 97166; 97530; 99285; J7030; J7040; J7050; P9017; A4216; C1751; C1769; C2617; J0696; J2405

== ENCOUNTER → 2018-04-28 13:25 | Outpatient (CLI) | payer MEDICARE, SELFPAY ==
[2018-04-21 05:21] VITALS: BMI 45.7
--- NOTE | 2018-04-28 13:29 | RAD_ITS ---
STUDY: X-RAY CHEST REASON FOR EXAM: Female, 77 years old. Cough TECHNIQUE: PA and lateral views of the chest. COMPARISON: 04/21/2018 FINDINGS: Right jugular central venous catheter has been removed. No airspace consolidation or pleural effusion. There is no demonstrated pleural abnormality. Coarsened interstitial lung markings similar since prior study. There is mild cardiac enlargement. Normal mediastinum and horacio. Normal visualized pulmonary arteries. There is atherosclerotic calcification of the aortic arch with tortuosity. There are diffuse degenerative changes of the visualized thoracic spine. Normal visualized ribs, clavicles, and shoulders. There is no demonstrated abnormality of the visualized soft tissue structures of the upper abdomen. RAD/Chest PA and Lateral IMPRESSION: 1. No airspace consolidation or pleural effusion. Electronically Signed: Anthony Araya MD at 9:34 EST , Service support ,
[2018-04-28 14:48] LABS: Erythrocyte Sedimentation Rate 60 mm/hr (0-30)
== END ==
PROVIDERS: Family Provider Internal Medicine; PCP Internal Medicine; Referring Provider Internal Medicine Pulmonary Disease; Visit Provider Internal Medicine Pulmonary Disease
DX: R05 Cough (principal)
CPT/HCPCS: 36415; 71046; 85652; 86140

== ENCOUNTER 2018-05-01 14:15 | Emergency (ER) | payer MEDICARE, SELFPAY ==
[2018-04-21 05:21] VITALS: BMI 45.7
[2018-05-01 14:16] VITALS: BP 132/71; PULSE 106; RESP 17; TEMP 36.6; O2SAT 92; BMI 44.6
[2018-05-01 15:56] LABS: Bacteria 0 SEEN /hpf (None Seen); Mucous, Urine 0 SEEN /hpf (<or=2+); Squamous Epithelial Cells - UA 0 SEEN /hpf (5-10)
[2018-05-01 16:17] LABS: Color, Urine Yellow (Yellow); Glucose, Dipstick Normal (Normal); Ketone-Dipstick Negative (Negative); Leukocyte Esterase-Dipstick 25 /ul (Negative); Nitrite-Dipstick Negative (Negative); Occult Blood-Urine 250 /ul (Negative); Protein-Dipstick 30 mg/dl (Negative); Urine Bilirubin Dipstick Negative (Negative); Urine Clarity Cloudy (Clear); Urine Urobilinogen Normal (Normal)
[2018-05-01 16:20] LABS: Red Blood Cells-Urine > 100 SEEN /hpf (0-5); White Blood Cells 0-5 SEEN /hpf (0-5)
[2018-05-01 16:28] LABS: Absolute Lymphocyte Count 0.97 X10^3/ul (0.83-4.51); Basophil# 0.03 X10^3/uL; Basophil% 0.3 % (0-1); Eosinophil# 0.13 X10^3/uL; Eosinophils% 1.4 % (0-5); Hematocrit 34.4 % (37-47); Hemoglobin 10.4 g/dl (12.0-15.0); Lymphocyte # 0.97 X10^3/ul (4.0); Lymphocyte % 10.4 % (19-41); Mean Corp Hgb Conc 30.2 g/gl (32-36); Mean Corpuscular Hgb 27.8 pg (27.0-32.0); Mean Platelet Vol. 9.3 fl (6.2-12.0); Monocyte# 0.97 X10^3/uL; Monocyte% 10.4 % (0-10); Neutrophil # 7.03 X10^3/uL (2.7-7.7); Neutrophil % 75.8 % (47-70); Platelet Count 368 K/mm3 (150-450); RBC Distribution Width CV 15.5 % (11.6-14.6); RBC Distribution Width SD 51.8 fl (35.1-43.9); Red Blood Count 3.74 M/mm3 (4.2-5.4); White Blood Count 9.3 K/mm3 (4.4-11.0)
[2018-05-01 16:30] LABS: POSITIVE COUNT NO; POSITIVE DIFFERENTIAL NO; POSITIVE MORPHOLOGY NO
[2018-05-01 16:40] LABS: International Normalized Ratio 2.6; Prothrombin Time (Protime)PT. 27.9 SECONDS (11.7-14.9)
[2018-05-01 16:42] LABS: Anion Gap 9 (5-15); BUN 14 mg/dL (7-18); BUN/Creat Ratio 10.2 RATIO (10-20); Calcium,Total 8.7 mg/dL (8.5-10.1); Chloride 108 mmol/L (98-107); Creatinine, Serum 1.37 mg/dL (0.55-1.02); EST Glomerular Filtration Rate 40 mL/min (>60); Est Glom Filt Rate - Afr Amer 48 mL/min (>60); Estimated Creatinine Clearance 31.93 ml/min; Glucose 107 mg/dL (74-106); Potassium 4.3 mmol/L (3.5-5.1); Sodium Level 140 mmol/L (136-145)
[2018-05-01 16:42] LABS: Partial Thromboplast Time 84.9 Seconds (24.1-36.2)
--- NOTE | 2018-05-01 17:06 | ED.VISSUMM ---
- ER Visit Summary Date of Service: 05/01/18 Chief Complaint: Bleeding from IJ site History of Present Illness: The patient is a [address] Anguiano. She was admitted to the hospital on April 21 and had a right internal jugular central line placed. This was removed April 25 and she was discharged. She reports that she had been doing well until yesterday when she woke in the morning and there was blood on her pillow. She reports the bleeding resolved throughout the day. However, again this morning there was blood on the pillow and she is been able to stop the bleeding today. Patient also reports that she has blood in her urine that began 3 days ago. She had a ureteral stent placed last week by Dr. Estes and has an appointment to see him in 3 days. She denies any dysuria or frequency. No fever or chills. Patient reports that she has a history of PE and had her Coumadin held for the procedure and is been placed on Lovenox. She is continuing Lovenox twice daily as a bridge to get her Coumadin back up to a therapeutic level. She has not had an INR since discharge. Physical Examination: Vitals: Stable. Afebrile. General: Well-nourished and well-developed. Head: Normocephalic atraumatic. Neck: Supple, no lymphadenopathy. No JVD. Nontender. Contusion inferior to the puncture site for the right IJ. There is oozing from the site. There is no erythema or warmth to suggest infection. It is minimally tender to palpation. Cardiovascular: Regular rate and rhythm. No murmurs. Respiratory: No respiratory distress. Clear to auscultation bilaterally. Abdominal: Soft, nontender, nondistended, normal bowel sounds. No guarding, rebound, or peritoneal signs. Back: Nontender. Extremities: Nontender, no edema. Skin: Normal color, no rash. Neurologic: Alert and oriented ?3. Cranial nerves II through XII are intact. Normal strength and sensation. Psych: Normal affect. Test Results: INR is 2.6 with a PTT of 84.9. CBC is more for hemoglobin of 10.4. This was 10.3-11.1 during her admission. Her platelets are 368. UA shows greater than 100 red blood cells with no evidence of infection. Chem-7 is more for chloride of 108, glucose 107, creatinine 1.37. Emergency Department Course and Treatment: Patient had Gelfoam placed over the area and then ABDs and Kerlix was used to wrap this. This did control the bleeding. She is resting comfortably. Treatment Plan: Patient has asked for pain medication for her left knee. The exam of this shows no erythema or warmth. She has good range of motion without any difficulty. No pain with short arc movements. She does see Dr. Cruz for pain management. I attempted to contact him and have not heard back from him. She will be given a prescription for 10 Percocet and instructed to follow-up with orthopedic spine surgeon as soon as possible. Patient was also discussed with Dr. Estes who asked that her urine be sent for culture and have her follow-up in the office in 3 days previously scheduled. She is happy with this plan. Return to the emergency department for any worsening symptoms. Disposition: To home in improved and stable condition. Impression: 1. Coumadin coagulopathy. 2. 10-day status post right IJ central line. This note was generated with [employer] dictation software. It may contain incorrect words, spelling, and punctuation that were not noted in review of the chart prior to signing ED Disposition - Plan for ED Patient: Disposition: Home or Assisted Living Instructions: ED Wound Check Post Op Bleeding Prescriptions: Oxycodone HCl/Acetaminophen [Percocet 5/325] 1 tablet PO Q6H PRN PRN 3 Days #12 tablet PRN Reason: Pain Ondansetron [Zofran Odt] 4 mg PO Q8H PRN PRN #10 tablet PRN Reason: Nausea Referrals: Robert Estes MD [STAFF PHYSICIAN] - Keep Nasim appointment Ai Anguiano MD [Primary Care Provider] - 1-2 Days if not improving Additional Instructions: Stop taking lovenox. Your INR is 2.6. Follow up with your Orthopedic surgeon regarding your knee pain as soon as possible.
[2018-05-01] MEDS: Ondansetron ODT 4 MG Tablet PO (18:11)
[2018-05-01] MEDS: oxyCODONE 5 MG Tablet 10 MG PO (18:11)
[2018-05-01 18:15] VITALS: BP 149/84
[2018-05-01 18:49] VITALS: BP 141/80; PULSE 89; RESP 16; O2SAT 96
== END 2018-05-01 18:51 | disposition home or self-care (01) ==
LOC: ED 16:10
PROVIDERS: Emergency Provider Emergency Medicine; Family Provider Internal Medicine; PCP Internal Medicine
DX: D68.9 Coagulation defect, unspecified (principal); Z95.828 Presence of other vascular implants and grafts; Z86.711 Personal history of pulmonary embolism; E11.9 Type 2 diabetes mellitus without complications; E78.00 Pure hypercholesterolemia, unspecified
CPT/HCPCS: 80048; 81001; 85025; 85610; 85730; 99283; A4216

== ENCOUNTER → 2018-05-04 09:02 | Outpatient (CLI) | payer MEDICARE, SELFPAY ==
[2018-05-01 14:16] VITALS: BMI 44.6
--- NOTE | 2018-05-04 09:04 | RAD_ITS ---
STUDY: X-RAY - ABDOMEN/PELVIS REASON FOR EXAM: Female, 77 years old. Kidney stone follow-up TECHNIQUE: Two AP supine views of the abdomen and pelvis. COMPARISON: CT from 04/21/2018 FINDINGS: Normal visualized lung bases. There is an unremarkable bowel gas pattern. Cholecystectomy clips are demonstrated. There is no demonstrated free abdominal air. Left ureter stent extends from the left renal shadow to the lower central pelvis. Surgical clips project over the lower pelvis correlating to abdominal wall surgery findings on prior CT. Bilateral hip replacements are similar. Arthrosis of the pubic symphysis and sacroiliac joints stable. There are diffuse degenerative changes of the visualized lumbar spine. RAD/Abdomen Single View IMPRESSION: 1. No suspicious intra-abdominal calcifications. New left ureter stent. The left ureter stone seen on prior CT is not seen on this exam. Electronically Signed: Anthony Araya MD at 8:54 EST , Service support ,
== END ==
PROVIDERS: Family Provider Internal Medicine; PCP Internal Medicine; Referring Provider Urology; Visit Provider Urology
DX: N20.0 Calculus of kidney (principal); R31.9 Hematuria, unspecified
CPT/HCPCS: 74018; 87086

== ENCOUNTER 2018-05-04 12:33 | Inpatient (IN) | payer MEDICARE, SELFPAY ==
[2018-05-04 12:33] VITALS: BP 133/69; PULSE 95; RESP 18; TEMP 36.5; O2SAT 98; BMI 44.6
--- NOTE | 2018-05-04 14:06 | RAD_ITS ---
STUDY: X-RAY - RIGHT FOOT CLINICAL: Female, 77 years old. Findings suggestive of infection. TECHNIQUE: 3 view(s) of the foot. COMPARISON: None. FINDINGS: There is a small plantar calcaneal spur. Normal visualized subtalar, talonavicular, calcaneocuboid, tarsal and tarsometatarsal articulations. Normal metatarsi. There is degenerative arthrosis of the metatarsophalangeal joint of the hallux with a hallux valgus deformity. Prior bunionectomy. Normal tibial and fibular sesamoid bones. Normal interphalangeal joint of the great toe. Normal phalanges of the great toe. Normal second through fifth metatarsophalangeal joints. Normal interphalangeal joints and phalanges of the lesser toes. Diffuse soft tissue swelling worse on the dorsal aspect. RAD/Foot min 3 Views IMPRESSION: Diffuse soft tissue swelling. Electronically Signed: Rogelio Oleary MD at 15:11 EST , Service support ,
[2018-05-04 14:33] VITALS: BP 148/81; PULSE 96; RESP 16; O2SAT 96
[2018-05-04 14:37] LABS: Absolute Lymphocyte Count 1.02 X10^3/ul (0.83-4.51); Absolute Neutrophil Count 7.6 X10^3/uL (2.0-7.7); Basophil# 0.04 X10^3/uL; Basophil% 0.4 % (0-1); Eosinophil# 0.28 X10^3/uL; Eosinophils% 2.7 % (0-5); Hematocrit 32.8 % (37-47); Hemoglobin 9.8 g/dl (12.0-15.0); Lymphocyte # 1.02 X10^3/ul (4.0); Lymphocyte % 9.8 % (19-41); Mean Corp Hgb Conc 29.9 g/gl (32-36); Mean Corpuscular Hgb 27.6 pg (27.0-32.0); Mean Corpuscular Volume 92.4 fL (81-99); Mean Platelet Vol. 8.8 fl (6.2-12.0); Monocyte# 1.35 X10^3/uL; Monocyte% 12.9 % (0-10); Neutrophil # 7.56 X10^3/uL (2.7-7.7); Neutrophil % 72.2 % (47-70); Platelet Count 452 K/mm3 (150-450); RBC Distribution Width CV 15.6 % (11.6-14.6); RBC Distribution Width SD 52.8 fl (35.1-43.9); Red Blood Count 3.55 M/mm3 (4.2-5.4); White Blood Count 10.5 K/mm3 (4.4-11.0)
[2018-05-04 14:41] LABS: Anion Gap 7 (5-15); BUN 22 mg/dL (7-18); BUN/Creat Ratio 14.4 RATIO (10-20); Chloride 101 mmol/L (98-107); Creatinine, Serum 1.53 mg/dL (0.55-1.02); EST Glomerular Filtration Rate 35 mL/min (>60); Est Glom Filt Rate - Afr Amer 43 mL/min (>60); Estimated Creatinine Clearance 28.59 ml/min; Glucose 112 mg/dL (74-106); Potassium 4.9 mmol/L (3.5-5.1); Sodium Level 134 mmol/L (136-145)
[2018-05-04 14:48] LABS: International Normalized Ratio 2.9; POSITIVE DIFFERENTIAL NO; Prothrombin Time (Protime)PT. 30.8 SECONDS (11.7-14.9)
[2018-05-04 14:49] LABS: POSITIVE COUNT YES; POSITIVE MORPHOLOGY YES
[2018-05-04 16:00] VITALS: BP 138/80; PULSE 101; RESP 16; O2SAT 96
--- NOTE | 2018-05-04 17:01 | ED.VISSUMM ---
- ER Visit Summary Date of Service: 05/04/18 Chief Complaint: Cellulitis History of Present Illness: The patient is a 77 F who was sent to the emergency department for cellulitis of her right leg. The patient closed her right foot in a car door earlier this week on accident. She has had pain and swelling since. She is starting to have redness which is spreading up her right foot and right lower leg. She also noticed some redness to her left lower leg. She was referred to the emergency department for evaluation and treatment for cellulitis. She does have a history of PE and takes Coumadin. Physical Examination: Afebrile and vital signs unremarkable. Alert and oriented. No acute distress. Right foot is swollen on the dorsal aspect primarily. Skin is intact. Skin is erythematous diffusely and the erythema spreads up her right lower leg. Left lower leg is mildly erythematous. Both lower extremities are warm to the touch. Foot is exquisitely tender to palpation. Capillary refill normal. Test Results: X-rays unremarkable. Hemoglobin 9.8 and platelets 452. Sodium 134, glucose 112, BUN 22, creatinine 1.53. INR 2.9. Cultures pending. Emergency Department Course and Treatment: Patient has right foot swelling and pain. X-rays negative. I suspect she has a hematoma as she is on Coumadin. I spoke with Dr. Winston who will evaluate for trauma and hematoma. I am also concerned because she has increasing redness. Since she has been here, she seems to have increasing redness to her left foot as well. She says this is not new and her confirms that the redness is worsening. I am concerned given the amount of redness that she will benefit from IV antibiotics. I started on cefazolin and she will need INR rechecks. I spoke with the hospitalist. Treatment Plan: As above Disposition: Admission Impression: 1. Bilateral lower externally cellulitis 2. Right foot hematoma This note was generated with [employer] dictation software. It may contain incorrect words, spelling, and punctuation that were not noted in review of the chart prior to signing ED Disposition - Plan for ED Patient: Referrals: Ai Anguiano MD [Primary Care Provider] -
[2018-05-04] MEDS: fentaNYL 100 MCG/2 ML Ampul 25 MCG IV (17:20)
[2018-05-04 17:36] VITALS: BMI 44.6
--- NOTE | 2018-05-04 17:55 | PCM.HP.STD ---
Problem List (1) Osteoarthritis Status: Chronic (2) Hyperlipidemia Status: Chronic (3) Hypertension Status: Chronic (4) Diabetes mellitus type 2 in obese Status: Chronic (5) Pulmonary embolism Status: Chronic (6) Metastatic breast cancer Status: Chronic (7) Restless leg syndrome Status: Chronic (8) Hypothyroidism Status: Chronic History of Present Illness Date of Admission: 05/04/18 Chief Complaint: Right foot pain, swelling. The patient is a 77 year old F with past medical history as mentioned above presented to the emergency room because of right foot pain and swelling. Her symptoms started around 7 days ago after she had her right foot with the door of her car, started having mild right foot pain, initially was mild pain, described as sharp needles, was progressive and today, it went up to 7 out of 10 in severity, associated with increased right foot swelling and redness not radiating, aggravated by even light touch and standing and minimally relieved with rest. She denies fever or chills. She mentioned that her left leg also swollen which is unusual for her. In the emergency room, her vital signs were stable, she was afebrile. Routine blood work was remarkable for chronic anemia, creatinine of 1.53 which is chronic. Her INR was 2.9. X-ray of the right foot revealed diffuse soft tissue swelling. She is being admitted for acute right foot cellulitis in context of recent right foot trauma and there is a suspicion that she may have hematoma of the right foot. 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, left (Chronic) Obesity (Chronic) Osteoarthritis (Chronic) Hyperlipidemia (Chronic) Hypertension (Chronic) Diabetes mellitus type 2 in obese (Chronic) Pulmonary embolism (Chronic) Metastatic breast cancer (Chronic) Restless leg syndrome (Chronic) Hypercoagulable state (Chronic) Hypothyroidism (Chronic) Obstructive sleep apnea (Chronic) History of pulmonary embolism (Chronic) Allergies acetaminophen [From Vicodin] Allergy (Verified 05/04/18 12:35) Unknown codeine Allergy (Verified 05/04/18 12:35) Unknown hydrocodone bitartrate [From Vicodin] Allergy (Verified 05/04/18 12:35) Unknown Home Medications: Ambulatory Orders Medication Instructions Recorded Levothyroxine [Synthroid] 112 mcg PO DAILY 01/24/14 Simvastatin [Zocor] 40 mg PO QHS 01/24/14 Anastrozole [Arimidex] 1 mg PO DAILY 03/17/15 Spironolactone [Aldactone] 25 mg PO DAILY #30 tablet 07/08/15 traZODone [Desyrel] 150 mg PO QHS 05/07/16 Clonazepam [Klonopin] 1 mg PO DAILY PRN PRN #30 tablet 06/09/16 traMADol [Ultram] 50 mg PO Q6H PRN PRN 03/18/17 Bupropion HCl [Bupropion Xl] 150 mg PO DAILY 04/22/18 Potassium Chloride 10 meq PO DAILY 04/22/18 Prednisone 2.5 mg PO QODAY 04/22/18 Acetaminophen [Tylenol] 1,000 mg PO PRN PRN 05/04/18 Acetaminophen/Diphenhydramine 2 tab PO PRN PRN 05/04/18 [Tylenol Pm Ex-Strength Caplet] Budesonide 2 ml INHALATION BID 05/04/18 Fluticasone Furoate [Arnuity 1 puff INHALATION DAILY 05/04/18 Ellipta] Furosemide [Lasix] 20 mg PO DAILY 05/04/18 Warfarin Sodium 1.5 mg PO MOFR 05/04/18 Warfarin Sodium 3 mg PO SUTUWETHSA 05/04/18 Surgical History: cholecystectomy, tonsillectomy, - - Bilateral knee arthroplasty, Bilateral hip arthroplasty, ORIF right ankle fracture, Tubal ligation. Psychiatric History: No pertinent psych hx SECOND CUTTER History: No pertinent SECOND CUTTER history Lives: Spouse/ Significant Other Smoking Status: Never smoker Alcohol: None Drugs: None - *Family History Maternal History Items: No pertinent history Paternal History Items: Heart Disease Review of Systems Constitutional: Denies: Anorexia, Chills, Fever, Weakness Eyes: Denies: Blurred vision, Double vision, Drainage, Redness HEENT: Denies: Difficulty Hearing, Ear Pain, Eye Pain, Nasal Congestion, Sore Throat Cardiovascular: Denies: Chest Pain, Chest Pressure, Chest Tightness, Heaviness, Palpitations, Syncope Respiratory: Denies: Cough, Pleuritic Pain, Shortness of Breath, Sputum production, Wheezing Gastrointestinal: Denies: Abdominal Pain, Constipation, Diarrhea, Nausea, Vomiting Genitourinary: Denies: Dysuria, Frequency, Hematuria Musculoskeletal: Reports: Leg Pain, - - Right foot pain.. Denies: Arm Pain, Back Pain, Foot Pain Skin: Denies: Dryness, Rash Neurological: Denies: Balance problems, Double vision, Change in Speech, Slurred speech, Confusion, Headaches, Incoordination, Numbness Psychiatric: Denies: Anxiety, Depression Endocrine: Denies: Change in Body Habitus, Polydipsia VTE Information - Inpt Only VTE Present on Admission: No VTE Mechan Device Prophylaxis: None VTE Pharm Prophylaxis ordered?: No - Physical Exam General: Alert, Oriented x3, Cooperative, No apparent distress HEENT: Atraumatic, PERRLA, EOMI, Normocephalic Oral: Moist Mucosa, No Gingival or Mucosal Lesions/ Ulcerations Neck: Supple, No JVD, Negative Carotid Bruits, Trachea Midline, Thyroid Normal Size and Texture Lungs: Clear to auscultation, No wheeze, No rales, Diminished, Rhonchi Cardiovascular: Regular rate, Regular Rhythm, Normal S1, Normal S2, PMI Normal Abdomen: Bowel Sounds Present, Soft, Non Tender, Non-Distended, No Hepato-splenomegaly, Obese Extremities: No clubbing, No cyanosis, Edema - Trace edema of both legs. The right foot: Swollen, erythematous and very tender to palpation mainly on the dorsal aspect of the right forefoot. Left leg is minimally red, no open wounds or drainage. Skin: No rashes, No breakdown Lymphatic: No Cervical, Supraclavicular, or Inguinal Adenopathy Neurological: Cranial nerves II-XII grossly intact, Motor Exam 5/5 strength throughout Psych/Mental Status: Normal Affect, Appropriate, Alert and oriented to time, place, person, mood and affect Vital Signs Temp Pulse Resp BP Pulse Ox 97.7 F L 101 H 16 138/80 H 96 05/04/18 12:33 05/04/18 16:00 05/04/18 16:00 05/04/18 16:00 05/04/18 16:00 Oxygen Delivery Method Room Air Weight: 268 lb Body Mass Index (BMI) 44.6 Finger Stick Blood Glucose 155 Laboratory Tests Past 24 Hrs 05/04/18 05/04/18 05/04/18 14:20 14:20 14:20 WBC 10.5 RBC 3.55 L Hgb 9.8 L Hct 32.8 L MCV 92.4 MCH 27.6 MCHC 29.9 L RDW 15.6 H RDW Differential 52.8 H Plt Count 452 H MPV 8.8 Immature Gran % (Auto) 2.000 H Neut % (Auto) 72.2 H Lymph % (Auto) 9.8 L [place] % (Auto) 12.9 H Eos % (Auto) 2.7 Baso % (Auto) 0.4 Absolute Neuts (auto) 7.6 Absolute Lymphs (auto) 1.02 Total Counted Not Reportable Diff Path Review July foll PT 30.8 H INR 2.9 Sodium 134 L Potassium 4.9 Chloride 101 Carbon Dioxide 26.0 Anion Gap 7 BUN 22 H Creatinine 1.53 H Estim Creat Clear Calc 28.59 Est GFR (MDRD) Af Amer 43 L Est GFR (MDRD) Non-Af 35 L BUN/Creatinine Ratio 14.4 Glucose 112 H Calcium 9.0 Clinical Impression(s) from Imaging Studies Foot X-Ray 05/04/18 14:06 IMPRESSION: Diffuse soft tissue swelling. Electronically Signed: Rogelio Oleary MD at 15:11 EST , Service support , Assessment/Plan This is a 77 years old female patient presented to the emergency room because of right foot pain and swelling as well as redness that started around 1 week ago after she closed her car door on her right foot, found to have acute cellulitis of the right foot in addition to possible right foot hematoma and she is being admitted for treatment. #1 acute right foot cellulitis: In context of recent history of minor trauma, patient closed car door on her right foot. Patient has been on Coumadin, hematoma is in the differential diagnosis as her right foot is swollen and very tender. Her vital signs are stable, afebrile. Plan: Admit to [facility] floor, telemetry, gentle IV fluids for hydration, blood culture, ESR, C-reactive protein, CT scan right foot to rule out hematoma, IV morphine as needed for pain, OxyIR as needed, podiatry medicine consult, repeat CBC and BMP tomorrow morning, PT OT evaluation and treatment. #2 history of PE/DVTs: On Coumadin, INR is 2.9, therapeutic. Plan to hold Coumadin for tonight as patient may go for surgery, repeat INR tomorrow morning. #3 type 2 diabetes mellitus: Diet-controlled, patient is not on any antidiabetic medications. Blood sugar stable. Plan for ADA diet, Accu-Cheks, insulin sliding scale. #4 chronic anemia: Anemia of chronic disease, baseline hemoglobin has been around 8-10 g/dL. Admission hemoglobin is 9.8 g etc., stable at baseline, repeat CBC tomorrow morning. #5 metastatic breast cancer: Currently on anastrozole, continue same treatment. #6 unspecified lung disease: She has been seeing Dr. SUTHERLAND as outpatient, started on long taper of prednisone over the last 2 months, currently on 2.5 mg prednisone daily. Pulse ox is maintained on room air. Plan: Continue prednisone, DuoNeb every 6 hours, chest x-ray. #7 hypothyroidism: Continue levothyroxine. #8 hypertension: Blood pressure stable, continue Aldactone, hold Lasix. #9 hyperlipidemia: Continue statins. #10 DVT prophylaxis: SCDs, INR is 2.9. This note was generated with [employer] dictation software. It may contain incorrect words, spelling, and punctuation that were not noted in checking the note before signing. Code Visit Inpatient E&M: 25276 Init Hosp L3
[2018-05-04] MEDS: Cefazolin 1 GM/50 ML BAG IV (17:57)
--- NOTE | 2018-05-04 18:45 | CT_ITS ---
STUDY: CT RIGHT FOOT REASON FOR EXAM: Female, 77 years old. Right foot pain. Swelling. RADIATION DOSAGE (If Supplied By Facility): CTDIvol = ( 15.35 ) mGy, DLP = ( 427.73 ) mGycm TECHNIQUE: Thin section transaxial imaging of the foot was obtained, with sagittal and coronal reconstructed images. Individualized dose optimization techniques were used for this CT. COMPARISON: None. FINDINGS: Normal talus, calcaneus, and tarsal bones. Normal visualized tibiotalar, subtalar, talonavicular, calcaneocuboid, tarsal and tarsometatarsal articulations. Normal metatarsi. Degenerative arthrosis of the metatarsophalangeal joint of the great toe. Normal tibial and fibular sesamoid bones. Normal interphalangeal joint of the great toe. Normal phalanges of the great toe. Degenerative arthrosis of the second through fifth metatarsophalangeal joints. Normal interphalangeal joints and phalanges of the lesser toes. There is a subcutaneous loculated hypoattenuation lesion at the dorsal aspect of the foot measures approximately 6 x 5.5 x 2.4 cm is consistent with a hematoma. CT/Extremity Lower without Contra IMPRESSION: There is a subcutaneous loculated hypoattenuation lesion at the dorsal aspect of the foot measures approximately 6 x 5.5 x 2.4 cm is consistent with a hematoma. Electronically Signed: Jovon Driver MD at 0:47 EST Tel , Service support ,
[2018-05-04 18:51] VITALS: BMI 45.2
[2018-05-04 18:59] VITALS: BP 147/67; PULSE 96; RESP 18; TEMP 37; O2SAT 96
[2018-05-04 19:40] LABS: Erythrocyte Sedimentation Rate 111 mm/hr (0-30)
[2018-05-04 19:50] VITALS: O2SAT 97
--- NOTE | 2018-05-04 20:00 | PCM.CONS.GEN ---
Reason for Consult Date of Consultation: 05/04/18 Reason for Consultation: Right foot injury/pain History of Present Illness: The patient is a 77 year old female with history of multiple medical problems presented to the ER for worsening right foot swelling and pain. She was admitted for cellulitis of the right lower extremity as well as the left lower extremity. Podiatry was consulted. Patient was seen this evening at bedside with her present. They relate she had foot caught in car door near the hinge ~1 week ago, relates she had pain, but not severe at that time. They relate the bruising started 2 days later, and now she has worsening pain and swelling. She relates the swelling and pain really became bad starting last night and worsening today so they came to the hospital. Right foot xrays were negative for fracture. Pain is on the top of the foot with touch and pressure, she relates it is severe, but minimal pain at rest. She has recently noticed left lower extremity with some redness. She is on chronic anti-coagulation, last INR 2.9. Patient's WBC is normal, and patient is afebrile. Patient going for CT scan tonight. She has no other complaints. She has been started on IV antibiotics - Zosyn. There are no wounds to the lower extremities. 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, left (Chronic) Obesity (Chronic) Osteoarthritis (Chronic) Hyperlipidemia (Chronic) Hypertension (Chronic) Diabetes mellitus type 2 in obese (Chronic) Pulmonary embolism (Chronic) Metastatic breast cancer (Chronic) Restless leg syndrome (Chronic) Hypercoagulable state (Chronic) Hypothyroidism (Chronic) Obstructive sleep apnea (Chronic) History of pulmonary embolism (Chronic) Allergies acetaminophen [From Vicodin] Allergy (Verified 05/04/18 12:35) Unknown codeine Allergy (Verified 05/04/18 12:35) Unknown hydrocodone bitartrate [From Vicodin] Allergy (Verified 05/04/18 12:35) Unknown Home Medications: Ambulatory Orders Medication Instructions Recorded Levothyroxine [Synthroid] 112 mcg PO DAILY 01/24/14 Simvastatin [Zocor] 40 mg PO QHS 01/24/14 Anastrozole [Arimidex] 1 mg PO DAILY 03/17/15 Spironolactone [Aldactone] 25 mg PO DAILY #30 tablet 07/08/15 traZODone [Desyrel] 150 mg PO QHS 05/07/16 Clonazepam [Klonopin] 1 mg PO DAILY PRN PRN #30 tablet 06/09/16 traMADol [Ultram] 50 mg PO Q6H PRN PRN 03/18/17 Bupropion HCl [Bupropion Xl] 150 mg PO DAILY 04/22/18 Potassium Chloride 10 meq PO DAILY 04/22/18 Prednisone 2.5 mg PO QODAY 04/22/18 Acetaminophen [Tylenol] 1,000 mg PO PRN PRN 05/04/18 Acetaminophen/Diphenhydramine 2 tab PO PRN PRN 05/04/18 [Tylenol Pm Ex-Strength Caplet] Budesonide 2 ml INHALATION BID 05/04/18 Fluticasone Furoate [Arnuity 1 puff INHALATION DAILY 05/04/18 Ellipta] Furosemide [Lasix] 20 mg PO DAILY 05/04/18 Warfarin Sodium 1.5 mg PO MOFR 05/04/18 Warfarin Sodium 3 mg PO SUTUWETHSA 05/04/18 Surgical History: cholecystectomy, tonsillectomy, - - Bilateral knee arthroplasty, Bilateral hip arthroplasty, ORIF right ankle fracture, Tubal ligation. 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 Right foot with edema and ecchymosis c/w contusion and hematoma formation, there is some erythema present, POP to the dorsal foot. There are no open lesions bilateral foot/ankle/leg, there is no maloder, no necrosis, no drainage, no tissue loss, no eschars, no blisters, no streaking, no evidence of ischemia to the foot/ankle/leg bilateral. Well healed incisions dorsal foot from previous surgery bilateral. Muscle strength is intact bilateral foot/ankle/leg. Motor function intact to the foot and ankle bilateral. No gross instability to the foot or ankle bilateral. Smooth ROM to the foot and ankle bilateral. She has very little to no pain with foot and ankle ROM bilateral. No pain to the toes bilateral, just pain to the dorsal forefoot on the right side, otherwise no other pain to the foot ankle or leg bilateral. CFT < 2 seconds to all toes bilateral. Sensation intact bilateral foot. Left leg with some mild diffuse erythema. Psych/Mental Status: Normal Affect, Alert and oriented to time, place, person, mood and affect Vital Signs Temp Pulse Resp BP Pulse Ox 98.6 F 96 18 147/67 H 97 05/04/18 18:59 05/04/18 18:59 05/04/18 18:59 05/04/18 18:59 05/04/18 19:50 Oxygen Delivery Method Room Air Weight: 123.4 kg Body Mass Index (BMI) 45.2 Finger Stick Blood Glucose 155 Laboratory Tests Past 24 Hrs 05/04/18 05/04/18 05/04/18 14:20 14:20 14:20 WBC 10.5 RBC 3.55 L Hgb 9.8 L Hct 32.8 L MCV 92.4 MCH 27.6 MCHC 29.9 L RDW 15.6 H RDW Differential 52.8 H Plt Count 452 H MPV 8.8 Immature Gran % (Auto) 2.000 H Neut % (Auto) 72.2 H Lymph % (Auto) 9.8 L [place] % (Auto) 12.9 H Eos % (Auto) 2.7 Baso % (Auto) 0.4 Absolute Neuts (auto) 7.6 Absolute Lymphs (auto) 1.02 Total Counted Not Reportable Diff Path Review July foll ESR PT 30.8 H INR 2.9 Sodium 134 L Potassium 4.9 Chloride 101 Carbon Dioxide 26.0 Anion Gap 7 BUN 22 H Creatinine 1.53 H Estim Creat Clear Calc 28.59 Est GFR (MDRD) Af Amer 43 L Est GFR (MDRD) Non-Af 35 L BUN/Creatinine Ratio 14.4 Glucose 112 H Calcium 9.0 C-React Prot Ext Range MRSA (PCR) 05/04/18 05/04/18 05/04/18 14:20 14:20 19:35 WBC RBC Hgb Hct MCV MCH MCHC RDW RDW Differential Plt Count MPV Immature Gran % (Auto) Neut % (Auto) Lymph % (Auto) [place] % (Auto) Eos % (Auto) Baso % (Auto) Absolute Neuts (auto) Absolute Lymphs (auto) Total Counted Diff Path Review ESR 111 H PT INR Sodium Potassium Chloride Carbon Dioxide Anion Gap BUN Creatinine Estim Creat Clear Calc Est GFR (MDRD) Af Amer Est GFR (MDRD) Non-Af BUN/Creatinine Ratio Glucose Calcium C-React Prot Ext Range 94.60 H MRSA (PCR) Pending POC Glucose 05/04/18 21:06 POC Glucose 119 H Assessment/Plan Contusion with hematoma formation dorsal right foot Cellulitis bilateral lower extremity Diabetes Reviewed diagnostic data, xrays negative for acute pathology. WBC normal and patient is afebrile. CT scan has been ordered and is pending. We discussed aspiration/drainage of the hematoma vs monitoring and see how site does overnight. She relates she would like to monitor, and we will also check the CT scan. Patient has been started on IV antibiotics. There is nothing to culture. Patient did already obtain blood cultures which are pending. At this time patient to keep the feet elevated as much as possible. Diabetes and further medical management per the medicine team. Podiatry will continue to follow and will re-evaluate tomorrow for possible drainage of the hematoma formation. Thank you for consultation.
[2018-05-04] MEDS: 0.9% Normal Saline 1,000 ML 75 ML IV (21:08)
[2018-05-04] MEDS: Atorvastatin Calcium 20 MG Tablet PO (21:09)
[2018-05-04] MEDS: traZODone 50 MG Tablet 150 MG PO (21:09)
[2018-05-04 21:17] LABS: Bedside Glucose 119 mg/dL (70-110)
[2018-05-04 22:25] LABS: M R Staph aureus DNA By PCR Negative (Negative); Probe Check PASS; Specimen Processing Control PASS
[2018-05-05] VITALS (13 sets, daily range): BP systolic 103–129; BP diastolic 47–74; PULSE 82–99; RESP 16–20; TEMP 36.6–36.9; O2SAT 93–99; BMI 45.2
[2018-05-05] MEDS: Levothyroxine 112 MCG Tablet PO (05:13)
[2018-05-05] MEDS: Nystatin Powder 15gm Bottle 1 APPLIC TOPICAL ×3 (05:14→22:24)
[2018-05-05 05:37] LABS: International Normalized Ratio 2.8; Prothrombin Time (Protime)PT. 29.4 SECONDS (11.7-14.9)
[2018-05-05 05:45] LABS: Absolute Lymphocyte Count 1.13 X10^3/ul (0.83-4.51); Absolute Neutrophil Count 4.7 X10^3/uL (2.0-7.7); Basophil# 0.05 X10^3/uL; Basophil% 0.7 % (0-1); Eosinophil# 0.32 X10^3/uL; Eosinophils% 4.2 % (0-5); Hematocrit 28.6 % (37-47); Hemoglobin 8.6 g/dl (12.0-15.0); Lymphocyte # 1.13 X10^3/ul (4.0); Mean Corp Hgb Conc 30.1 g/gl (32-36); Mean Corpuscular Hgb 28.3 pg (27.0-32.0); Mean Corpuscular Volume 94.1 fL (81-99); Mean Platelet Vol. 8.8 fl (6.2-12.0); Monocyte% 14.6 % (0-10); Neutrophil # 4.72 X10^3/uL (2.7-7.7); Neutrophil % 62.7 % (47-70); POSITIVE COUNT YES; POSITIVE DIFFERENTIAL NO; POSITIVE MORPHOLOGY YES; Platelet Count 444 K/mm3 (150-450); RBC Distribution Width CV 15.3 % (11.6-14.6); RBC Distribution Width SD 49.9 fl (35.1-43.9); Red Blood Count 3.04 M/mm3 (4.2-5.4); White Blood Count 7.5 K/mm3 (4.4-11.0)
[2018-05-05 05:47] LABS: Anion Gap 10 (5-15); BUN 17 mg/dL (7-18); BUN/Creat Ratio 12.5 RATIO (10-20); Calcium,Total 8.5 mg/dL (8.5-10.1); Chloride 106 mmol/L (98-107); Creatinine, Serum 1.36 mg/dL (0.55-1.02); EST Glomerular Filtration Rate 40 mL/min (>60); Est Glom Filt Rate - Afr Amer 49 mL/min (>60); Estimated Creatinine Clearance 32.16 ml/min; Glucose 92 mg/dL (74-106); Potassium 4.6 mmol/L (3.5-5.1); Sodium Level 140 mmol/L (136-145)
--- NOTE | 2018-05-05 06:54 | PN_ITS ---
Subjective: Patient seen today for follow up on right foot hematoma. She had CT scan which confirmed hematoma. She relates it is still very painful. Patient afebrile, WBC normal. - Physical Exam General: Alert, Oriented x3, Cooperative, No apparent distress Extremities: Capillary Refill Less than 3 Seconds, - - Continued swelling and hematoma to the dorsal right foot with significant pain present. There is no evidence of acute ischemia. There is cellulitis on the right foot, no necrosis, no drainage, no open lesion, no streaking to the right foot or ankle. Vital Signs Temp Pulse Resp BP Pulse Ox 97.9 F 99 20 H 112/47 L 93 05/05/18 01:12 05/05/18 01:12 05/05/18 01:12 05/05/18 01:12 05/05/18 01:12 Oxygen Delivery Method Room Air Weight: 123.4 kg Body Mass Index (BMI) 45.2 Finger Stick Blood Glucose 155 Intake and Output for Last 24 Hours 05/03/18 05/04/18 05/05/18 23:59 23:59 23:59 Intake Total 761 / 761 532 / 532 Balance 761 / 761 532 / 532 Laboratory Tests Past 24 Hrs 05/04/18 05/04/18 05/04/18 14:20 14:20 14:20 WBC 10.5 RBC 3.55 L Hgb 9.8 L Hct 32.8 L MCV 92.4 MCH 27.6 MCHC 29.9 L RDW 15.6 H RDW Differential 52.8 H Plt Count 452 H MPV 8.8 Immature Gran % (Auto) 2.000 H Neut % (Auto) 72.2 H Lymph % (Auto) 9.8 L [place] % (Auto) 12.9 H Eos % (Auto) 2.7 Baso % (Auto) 0.4 Absolute Neuts (auto) 7.6 Absolute Lymphs (auto) 1.02 Total Counted Not Reportable Diff Path Review July ESR PT 30.8 H INR 2.9 Sodium 134 L Potassium 4.9 Chloride 101 Carbon Dioxide 26.0 Anion Gap 7 BUN 22 H Creatinine 1.53 H Estim Creat Clear Calc 28.59 Est GFR (MDRD) Af Amer 43 L Est GFR (MDRD) Non-Af 35 L BUN/Creatinine Ratio 14.4 Glucose 112 H Calcium 9.0 C-React Prot Ext Range MRSA (PCR) 05/04/18 05/04/18 05/04/18 14:20 14:20 19:35 WBC RBC Hgb Hct MCV MCH MCHC RDW RDW Differential Plt Count MPV Immature Gran % (Auto) Neut % (Auto) Lymph % (Auto) [place] % (Auto) Eos % (Auto) Baso % (Auto) Absolute Neuts (auto) Absolute Lymphs (auto) Total Counted Diff Path Review ESR 111 H PT INR Sodium Potassium Chloride Carbon Dioxide Anion Gap BUN Creatinine Estim Creat Clear Calc Est GFR (MDRD) Af Amer Est GFR (MDRD) Non-Af BUN/Creatinine Ratio Glucose Calcium C-React Prot Ext Range 94.60 H MRSA (PCR) Negative 05/05/18 05/05/18 05/05/18 04:56 04:56 04:56 WBC 7.5 RBC 3.04 L Hgb 8.6 L Hct 28.6 L MCV 94.1 MCH 28.3 MCHC 30.1 L RDW 15.3 H RDW Differential 49.9 H Plt Count 444 MPV 8.8 Immature Gran % (Auto) 2.800 H Neut % (Auto) 62.7 Lymph % (Auto) 15.0 L [place] % (Auto) 14.6 H Eos % (Auto) 4.2 Baso % (Auto) 0.7 Absolute Neuts (auto) 4.7 Absolute Lymphs (auto) 1.13 Total Counted Not Reportable Diff Path Review May foll ESR PT 29.4 H INR 2.8 Sodium 140 Potassium 4.6 Chloride 106 Carbon Dioxide 24.0 Anion Gap 10 BUN 17 Creatinine 1.36 H Estim Creat Clear Calc 32.16 Est GFR (MDRD) Af Amer 49 L Est GFR (MDRD) Non-Af 40 L BUN/Creatinine Ratio 12.5 Glucose 92 Calcium 8.5 C-React Prot Ext Range MRSA (PCR) POC Glucose 05/04/18 21:06 POC Glucose 119 H Medical Necessity - Tobacco Use Smoking Status: Never smoker Assessment/Plan Contusion with hematoma formation dorsal right foot Cellulitis bilateral lower extremity Diabetes Reviewed CT scan, shows hematoma. Clinically this has not improved overnight and still very painful. There is concern about infected hematoma. Given the findings will plan to proceed with incision, drainage and debridement of the hematoma on the right foot for that to be completed today. Reviewed with patient, she agreed with plan. Continue with antibiotics.
[2018-05-05 06:56] LABS: Bedside Glucose 87 mg/dL (70-110)
[2018-05-05] MEDS: Ipratropium/Albuterol Sulfate 3 ML AMPUL.NEB INHALATION ×3 (07:14→19:09)
--- NOTE | 2018-05-05 07:54 | EKG12_ITS ---
Test Reason : Blood Pressure : / mmHG Vent. Rate : 096 BPM Atrial Rate : 096 BPM P-R Int : 162 ms QRS Dur : 102 ms QT Int : 398 ms P-R-T Axes : 032 -16 023 degrees QTc Int : 502 ms Normal sinus rhythm Low voltage QRS Prolonged QT Abnormal ECG When compared with ECG of 18-MAR-2017 12:49, No significant change was found Confirmed by DEBRA MEJIA, DANK ([id number]), website/blog editor YUDITH PADRON ([id number]) on 05/11/2018 12:04:29 PM Referred By: SOHAIL Confirmed By:DANK RICHARDSON MD
[2018-05-05] MEDS: Anastrozole 1 MG Tablet PO (09:15)
[2018-05-05] MEDS: buPROPion (XL) 150 MG TABLET.XL PO (09:15)
[2018-05-05] MEDS: Morphine 2 MG/ML Syringe 1 MG IV (09:32)
--- NOTE | 2018-05-05 09:54 | PCM.PROGNOTE ---
Subjective: Chief complaint: Follow-up after admission for right foot cellulitis, probably infected right foot hematoma. Patient seen and examined. No acute events overnight. She still complaining of right foot pain, aggravated by even light touch. Denies fever chills. Today, she complained of left knee pain that has been going on for several weeks. Blood pressure and heart rate are maintained, afebrile. - Physical Exam General: Alert, Oriented x3, Cooperative, - - She is in moderate pain. HEENT: Atraumatic, PERRLA, EOMI, Normocephalic Oral: Moist Mucosa, No Gingival or Mucosal Lesions/ Ulcerations Neck: Supple, No JVD, Negative Carotid Bruits, Trachea Midline, Thyroid Normal Size and Texture Lungs: Clear to auscultation, No rhonchi, No wheeze, No rales, Diminished Cardiovascular: Regular rate, Regular Rhythm, Normal S1, Normal S2 Abdomen: Bowel Sounds Present, Soft, Non Tender, Non-Distended, No Hepato-splenomegaly Extremities: No clubbing, No cyanosis, Edema - Right foot/leg: Right foot is swollen, red, erythematous, very tender to palpation. Left leg minimal erythema, edema. Skin: No rashes, No breakdown Lymphatic: No Cervical, Supraclavicular, or Inguinal Adenopathy Neurological: Cranial nerves II-XII grossly intact, Motor Exam 5/5 strength throughout Psych/Mental Status: Normal Affect, Appropriate, Alert and oriented to time, place, person, mood and affect Vital Signs Temp Pulse Resp BP Pulse Ox 98.4 F 88 16 114/53 L 95 05/05/18 06:52 05/05/18 07:14 05/05/18 07:14 05/05/18 06:52 05/05/18 07:14 Oxygen Delivery Method Room Air Weight: 272 lb 0.807 oz Body Mass Index (BMI) 45.2 Finger Stick Blood Glucose 155 Intake and Output for Last 24 Hours 05/03/18 05/04/18 05/05/18 23:59 23:59 23:59 Intake Total 761 / 761 532 / 532 Balance 761 / 761 532 / 532 Laboratory Tests Past 24 Hrs 05/04/18 05/04/18 05/04/18 14:20 14:20 14:20 WBC 10.5 RBC 3.55 L Hgb 9.8 L Hct 32.8 L MCV 92.4 MCH 27.6 MCHC 29.9 L RDW 15.6 H RDW Differential 52.8 H Plt Count 452 H MPV 8.8 Immature Gran % (Auto) 2.000 H Neut % (Auto) 72.2 H Lymph % (Auto) 9.8 L [place] % (Auto) 12.9 H Eos % (Auto) 2.7 Baso % (Auto) 0.4 Absolute Neuts (auto) 7.6 Absolute Lymphs (auto) 1.02 Total Counted Not Reportable Diff Path Review May foll ESR PT 30.8 H INR 2.9 Sodium 134 L Potassium 4.9 Chloride 101 Carbon Dioxide 26.0 Anion Gap 7 BUN 22 H Creatinine 1.53 H Estim Creat Clear Calc 28.59 Est GFR (MDRD) Af Amer 43 L Est GFR (MDRD) Non-Af 35 L BUN/Creatinine Ratio 14.4 Glucose 112 H Calcium 9.0 C-React Prot Ext Range MRSA (PCR) 05/04/18 05/04/18 05/04/18 14:20 14:20 19:35 WBC RBC Hgb Hct MCV MCH MCHC RDW RDW Differential Plt Count MPV Immature Gran % (Auto) Neut % (Auto) Lymph % (Auto) [place] % (Auto) Eos % (Auto) Baso % (Auto) Absolute Neuts (auto) Absolute Lymphs (auto) Total Counted Diff Path Review ESR 111 H PT INR Sodium Potassium Chloride Carbon Dioxide Anion Gap BUN Creatinine Estim Creat Clear Calc Est GFR (MDRD) Af Amer Est GFR (MDRD) Non-Af BUN/Creatinine Ratio Glucose Calcium C-React Prot Ext Range 94.60 H MRSA (PCR) Negative 05/05/18 05/05/18 05/05/18 04:56 04:56 04:56 WBC 7.5 RBC 3.04 L Hgb 8.6 L Hct 28.6 L MCV 94.1 MCH 28.3 MCHC 30.1 L RDW 15.3 H RDW Differential 49.9 H Plt Count 444 MPV 8.8 Immature Gran % (Auto) 2.800 H Neut % (Auto) 62.7 Lymph % (Auto) 15.0 L [place] % (Auto) 14.6 H Eos % (Auto) 4.2 Baso % (Auto) 0.7 Absolute Neuts (auto) 4.7 Absolute Lymphs (auto) 1.13 Total Counted Not Reportable Diff Path Review May foll ESR PT 29.4 H INR 2.8 Sodium 140 Potassium 4.6 Chloride 106 Carbon Dioxide 24.0 Anion Gap 10 BUN 17 Creatinine 1.36 H Estim Creat Clear Calc 32.16 Est GFR (MDRD) Af Amer 49 L Est GFR (MDRD) Non-Af 40 L BUN/Creatinine Ratio 12.5 Glucose 92 Calcium 8.5 C-React Prot Ext Range MRSA (PCR) POC Glucose 05/05/18 05/04/18 06:41 21:06 POC Glucose 87 119 H Medical Necessity - Tobacco Use Smoking Status: Never smoker Assessment/Plan This is a 77 years old female patient presented to the emergency room because of right foot pain and swelling as well as redness that started around 1 week ago after she closed her car door on her right foot, found to have acute cellulitis of the right foot in addition to possible right foot hematoma and she is being admitted for treatment. #1 acute right foot cellulitis/acute traumatic probably infected right foot hematoma: CT scan right foot reviewed. Patient is on IV Zosyn. She is symptomatic, very painful. Vital signs are stable, afebrile. Her ESR and C-reactive protein are elevated. Blood cultures are pending. Podiatry medicine consulted, plan for surgery today. Will do x-ray of the left knee to assess for left knee pain. #2 preoperative evaluation: Patient lives at home, she is partially dependent, has been having issues with chronic arthritis, knee pain, hip pain, fractures. She does have a history of metastatic breast cancer, hypertension and hyperlipidemia as well as diabetes. No history of CAD. Her EKG revealed normal sinus rhythm, normal interval, prolonged QTC, no acute ischemic changes. Recently, she has been following up with Dr. Tripp about chronic respiratory symptoms, has been on trial of longer taper of prednisone and bronchodilators. Based on her age, serum creatinine, past medical history and functional status, her estimated risk for perioperative myocardial infarction or cardiac arrest is 0.67%. Plan: Chest x-ray, will proceed with surgery and this patient is at moderate risk for surgery. #3 history of PE/DVTs: Coumadin held, today's INR is 2.8. Plan to keep Coumadin on hold, repeat INR tomorrow morning. #4 type 2 diabetes mellitus: Blood sugar has been stable, plan to continue ADA diet and insulin sliding scale only. #5 chronic anemia: Anemia of chronic disease, baseline hemoglobin has been around 8-10 g/dL. Admission hemoglobin is 9.8, today's hemoglobin is 8.6 g/dL. Plan to repeat CBC tomorrow morning, transfuse if hemoglobin less than 8 g/dL. #6 metastatic breast cancer: Currently on anastrozole, continue same treatment. #7 unspecified lung disease: She has been seeing Dr. SUTHERLAND as outpatient, started on long taper of prednisone over the last 2 months, currently on 2.5 mg prednisone daily. Pulse ox is maintained on room air. Continue prednisone, DuoNeb every 6 hours, chest x-ray as above. #8 hypothyroidism: Continue levothyroxine. #9 hypertension: Blood pressure stable, continue Aldactone, hold Lasix. #10 hyperlipidemia: Continue statins. #11 DVT prophylaxis: SCDs, INR is 2.8. This note was generated with [employer] dictation software. It may contain incorrect words, spelling, and punctuation that were not noted in checking the note before signing. Code Visit Inpatient E&M: 19254 Subs Hosp L3
[2018-05-05 11:37] LABS: Bedside Glucose 122 mg/dL (70-110)
--- NOTE | 2018-05-05 11:55 | CASEMGMT ---
RN JOSE LUIS Face to Face with patient for initial transition planning/care coordination assessment. RN CM introduced self and role at [facility]. Patient lying in bed, alert and oriented. Patient willing to participate in assessment and is able to answer all questions appropriately. Care providers, pharmacy, and demographics verified. Patient wishes to discharge home, denies need for home health at this time. Patient states she has no further needs or concerns at this time. CM to follow for discharge planning needs that may arise. PCP: Silvio Specialists: Josee, pulmonology; Jonathan, oncology; Bere, cardiology; Meera, urology; Denise, ortho Preferred Pharmacy: [facility] Insurance: [employer] [facility] Prescription Benefit: Yes [employer] [facility] Living Will/HPOA: Yes, Tony Shoemaker LNOK: Living Arrangements: Patient lives in 1 story home with with ramp to enter the home. Patient is independent with self care. Transportation: DME/HHC: Patient states she has shower chair, toilet riser, lift chair, grab bars, walker, rollator, wheelchair, bipap, nebulizer, INR program checker, and glucometer at home. Patient denies use of oxygen at home. Patient has had [facility] HHC in the past but denies need for HHC at this time. Disposition Plan: Patient to discharge home with family support and follow-up plans in place. Leeanne MAKI, RN, CM
--- NOTE | 2018-05-05 12:00 | RAD_ITS ---
STUDY: X-RAY CHEST REASON FOR EXAM: Female, 77 years old. Cough. TECHNIQUE: Single AP portable upright view of the chest. COMPARISON: PA and lateral chest x-ray April 28, 2018. FINDINGS: The lungs are not as fully expanded as on prior study. Question of subsegmental volume loss in the medial right lung base. The left lung is clear. There is no demonstrated pleural abnormality. The heart size is upper normal. Normal mediastinum and horacio. Normal visualized pulmonary arteries. Normal visualized aortic arch and descending thoracic aorta. There are stable diffuse degenerative changes and mild dextroscoliosis of the visualized thoracic spine. 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 There is no demonstrated abnormality of the visualized soft tissue structures of the upper abdomen. RAD/Chest 1 View (Portable) IMPRESSION: Question of minor volume loss in the medial right lung base. Heart size upper normal. No CHF. Electronically Signed: Ryan Mojica MD at 18:10 EST , Service support ,
--- NOTE | 2018-05-05 12:00 | RAD_ITS ---
STUDY: X-RAY - LEFT KNEE REASON FOR EXAM: Female, 77 years old. Recent fall. TECHNIQUE: 3 view(s) of the knee. COMPARISON: 4 images of the left knee June 24, 2015. FINDINGS: The patient has undergone replacement of the total knee arthroplasty since the 2016 films. A large femoral prosthesis now replaces the distal femoral metadiaphysis. A new tibial prosthesis with a longer stem is present. There is approximately 2.25 cm marginated lucency between the metal plateau of the prosthesis and the cement line along the partially resected [place] tibial prosthesis. There is also 2.5 cm distance between the tip of the metal stem and the cavity distal to the tip of the stem within the cement that extends around the stem into the proximal tibial metadiaphysis. It is uncertain if this gap reflects an expected appearance of the tibial prosthesis versus partial displacement of the middle component of the prosthesis from the tibia and periprosthetic cement. Mild osteoarthritic degenerative change of the proximal fibula. There is stable deformity along the posterior patella related to radiolucent prosthesis at that site. There is no demonstrated acute fracture. Normal patellofemoral articulation. There is arthrosis of the proximal tibiofibular articulation. There is no demonstrated joint effusion. The soft tissue structures are unremarkable. RAD/Knee 3 Views IMPRESSION: Patient has undergone replacement of the left total knee arthroplasty hardware since 2016. The femoral, tibial, and patellar prostheses are in anatomic alignment relative to one another, but there is an atypical gap between the plateau of the metal tibial prosthesis and the [place] tibial plateau, raising question of abnormal displacement of the tibial prosthesis from the [place] tibia. Correlation with any previous outside films of the knee done in the interval between these studies is suggested. N.B. : The above information has been verbally conveyed by Ryan Mojica MD to Rita Ramos MD, on 05/05/2018 17:43:05 (ET). Electronically Signed: Ryan Mojica MD at 17:50 EST , Service support ,
[2018-05-05 13:42] LABS: Pathologist Review Reviewed
[2018-05-05 13:43] LABS: Pathologist Review Reviewed
--- NOTE | 2018-05-05 14:25 | THRO_PTH ---
PATIENT: DULCE SANCHEZ LOC: MS3 U#:[id number] AGE/SX: 77/F ROOM: [facility] [place]05/04/[address]: Dr. Alfredo Astorga MD : 1940 BED: 1 DIS: 05/10/2018 SPEC #: [id number] RECD: 05/08/18 08:18 STATUS: FERNANDA REQ #: [id number] ORLIN: 05/05/18 14:[address]: Paolo Winston DEPT: SURGICAL PATHOLOGY RECD BY: Diego Gordon ENTERED: 05/08/18 10:05 SP TYPE: THROMBUS OTHR DR: MD Dr. Rita Vidal MD Dr. Liza D Talampas, MD Dr. Steven Widmer, MD Tissues: BLOOD CLOT, NOS Procedures: Surgery Specimen Level III HEADER OPERATION: I & D infected hematoma foot PRE-OP DIAGNOSIS: Infected hematoma right foot TISSUE SUBMITTED: Infected hematoma right foot MICROSCOPIC DIAGNOSIS Infected hematoma right foot: Fragments of fibroadipose and fibrovascular tissue with acute and chronic inflammation, reactive changes and blood clots, clinically infected hematoma. CANDELARIO:carmella 05/09/18 MICROSCOPIC DESCRIPTION Slides are reviewed. GROSS DESCRIPTION Received in fixative is one container labeled with the patient's name and designated infected hematoma right foot. The specimen consists of multiple irregular fragments of reddish-james soft tissue that in aggregate measure 4 x 4 x 1 cm. Barkeep sections are submitted in one cassette. / AM:carmella 05/08/18 TC:2 CPT: 96094
[2018-05-05] MEDS: Bupivacaine Mpf 0.5% 30 ML VIAL (14:53)
--- NOTE | 2018-05-05 15:20 | PCM.OPRPT ---
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 Culture of hematoma right foot sent to microbiology. 2. Excised hematoma right foot sent to pathology Estimated Blood Loss (mL): 10mL Description of Procedure: Indications: This is a 77 year old female with multiple comorbidities and on anticoagulation who developed a hematoma to the dorsal right forefoot, now infected. Hematoma was confirmed with clinical and CT scan findings. There were signs/symptoms of localized infection. Symptoms persist despite IV antibiotics. Due to the findings we discussed incision and drainage of hematoma right foot -reviewed the rationale of this, as well as the possible benefits vs risks, goals, expectations and all alternative options. Patient was advised the risks include, but are not limited to pain, swelling, nonhealing, worsening of condition, need for further procedures/surgery, bleeding, fracture, loss of strength, deformity, scar tissue, numbness, weakness, problems with shoes, blood clots, arthritis, fracture, further symptoms, complex regional pain syndrome, neuritis, difficulty walking, loss of limb, loss of life. After discussion patient elected to proceed forward with incision and drainage of the hematoma. The consent form was reviewed with her, and she freely signed it. No guarantees were given nor implied. All of the patient's questions were answered. Patient's was present for discussion and he agreed with plan as well. Operative Procedure: The patient was brought back to the operating room and was placed on the operating room table in the supine position. The patient was secured to the operating room table with a safely belt around her waist. A time out was performed and the patient was properly identified and the surgical plan was confirmed. The patient was already on IV antibiotic therapy. The patient received MAC anesthesia per the anesthesia team. A total of 20mL of 0.5% Bupivicaine plain was given as a local block around the right foot after the overlying skin was cleansed with 70% isopropyl alcohol. A well padded pneumatic tourniquet was applied around the patient's right ankle. The right foot was scrubbed, prepped, and draped in the usual aseptic fashion. Attention was further directed to the right foot and there was noted to be a large hematoma formation to the dorsal forefoot with associated cellulitis. The dorsal forefoot was very tense. Also site was very very painful pre operatively. The right foot was elevated and the right ankle pneumatic tourniquet was inflated to 250mmHg. An incision was made to the skin overlying the hematoma site. There was immediate blood and significant/ hematoma clots that poured out consistent with hematoma. There was also some drainage from the site consistent with infection. The site was cultured and sent to microbiology. The hematoma was completely evacuated from the site, it extended throughout the dorsal space of the forefoot, there was no proximal involvement or involvement into the intermetatarsal spaces or plantar foot. The hematoma was biopied and this was sent to pathology. The site was flushed out with copious amounts of normal saline solution. The remaining tissues were healthy and viable, and the site was properly decompressed. There was no exposed bone and no evidence of bone or joint involvement. The site was packed with 1/4 inch plain gauze packing. Adaptic was applied with overlying surgicel, then 4x4 gauze, abd pad, kerlix and rustam bandage. The pneumatic tourniquet was deflated during the dressing application. Total tourniqeut time was 10 minutes. There was noted to be immediate return of warmth and perfusion to the foot with CFT < 2 seconds to all toes. The patient tolerated the procedure well and the anesthesia well with no complications. She was transported to the recovery room with vital signs stable and in good condition. Post operative ordered placed. Patient will go back to the floor for monitoring and management. Grafts/Implants Used: None - Complications None
[2018-05-05 16:26] LABS: Bedside Glucose 100 mg/dL (70-110)
--- NOTE | 2018-05-05 17:14 | CHAPLAIN ---
patient was in post op but spouse was in room at time of visit; spouse is offered support and he reports that all is well
[2018-05-05] MEDS: oxyCODONE 5 MG Tablet PO (18:00)
[2018-05-05] MEDS: Acetaminophen 325 MG Tablet 650 MG PO (19:55)
[2018-05-05] MEDS: traZODone 50 MG Tablet 150 MG PO (22:24)
[2018-05-05] MEDS: Atorvastatin Calcium 20 MG Tablet PO (22:24)
[2018-05-05 23:17] LABS: Bedside Glucose 127 mg/dL (70-110)
[2018-05-06] VITALS (7 sets, daily range): BP systolic 109–136; BP diastolic 60–75; PULSE 86–96; RESP 14–18; TEMP 36.6–37.1; O2SAT 91–99
[2018-05-06] MEDS: Ipratropium/Albuterol Sulfate 3 ML AMPUL.NEB INHALATION ×3 (01:22→19:00)
[2018-05-06] MEDS: Levothyroxine 112 MCG Tablet PO (06:25)
[2018-05-06 06:47] LABS: Bedside Glucose 118 mg/dL (70-110)
[2018-05-06 07:32] LABS: Absolute Neutrophil Count 6.6 X10^3/uL (2.0-7.7); Basophil# 0.02 X10^3/uL; Basophil% 0.2 % (0-1); Eosinophil# 0.31 X10^3/uL; Eosinophils% 3.4 % (0-5); Hematocrit 29.5 % (37-47); Hemoglobin 8.9 g/dl (12.0-15.0); Lymphocyte % 6.7 % (19-41); Mean Corp Hgb Conc 30.2 g/gl (32-36); Mean Corpuscular Hgb 27.8 pg (27.0-32.0); Mean Corpuscular Volume 92.2 fL (81-99); Mean Platelet Vol. 8.4 fl (6.2-12.0); Monocyte% 15.5 % (0-10); Neutrophil # 6.61 X10^3/uL (2.7-7.7); Neutrophil % 73.3 % (47-70); Platelet Count 421 K/mm3 (150-450); RBC Distribution Width CV 15.9 % (11.6-14.6); RBC Distribution Width SD 53.5 fl (35.1-43.9)
[2018-05-06 07:33] LABS: Differential Indicated SCAN CRITERIA MET; POSITIVE COUNT NO; POSITIVE DIFFERENTIAL YES; POSITIVE MORPHOLOGY NO
[2018-05-06 07:48] LABS: Anion Gap 9 (5-15); BUN 14 mg/dL (7-18); BUN/Creat Ratio 10.9 RATIO (10-20); Calcium,Total 8.5 mg/dL (8.5-10.1); Chloride 107 mmol/L (98-107); Creatinine, Serum 1.28 mg/dL (0.55-1.02); EST Glomerular Filtration Rate 43 mL/min (>60); Est Glom Filt Rate - Afr Amer 52 mL/min (>60); Estimated Creatinine Clearance 34.17 ml/min; Glucose 119 mg/dL (74-106); Potassium 4.6 mmol/L (3.5-5.1); Sodium Level 141 mmol/L (136-145)
[2018-05-06 07:56] LABS: International Normalized Ratio 2.7; Prothrombin Time (Protime)PT. 28.7 SECONDS (11.7-14.9)
[2018-05-06] MEDS: Nystatin Powder 15gm Bottle 1 APPLIC TOPICAL ×2 (08:25→22:12)
[2018-05-06] MEDS: buPROPion (XL) 150 MG TABLET.XL PO (08:25)
[2018-05-06] MEDS: Spironolactone 25 MG Tablet PO (08:25)
[2018-05-06] MEDS: Anastrozole 1 MG Tablet PO (08:26)
[2018-05-06 08:51] LABS: Anisocytosis 1+; Platelet Estimate ADEQUATE (ADEQ); Red Cell Morphology N CHROM NORMAL (NORM C&C)
--- NOTE | 2018-05-06 09:47 | RAD_ITS ---
STUDY: X-RAY - LEFT FEMUR REASON FOR STUDY: Female, 77 years old. Injury, left leg pain TECHNIQUE: AP and lateral view(s) of the femur. COMPARISON: 06/24/2015 FINDINGS: Left hip replacement is similar since the prior study. Interval revision of left knee replacement with orthopedic implant extending from the proximal third diaphysis contiguous with knee implant. Coarse calcification at the junction of the implant with the remnant femur. No discrete fracture is seen. Normal visualized soft tissue structure. RAD/Femur Min 2 Views IMPRESSION: 1. No acute fracture demonstrated. 2. Status post revision of knee replacement following distal femur fracture (2015). Expected operative changes and thick periosteal reaction/callus. Electronically Signed: Anthony Araya MD at 16:16 EST , Service support ,
--- NOTE | 2018-05-06 09:52 | PCM.PROGNOTE ---
Subjective: Chief complaint: Follow-up after admission for right foot cellulitis, probably infected right foot hematoma status post incision and drainage. Patient complains of left knee pain, accident and she was found to have suspected displaced tibial prosthesis. Patient seen and examined. No acute events overnight. Right foot pain is significantly improved, still having some pain upon movement. Denies fever chills. Left knee pain is still there. Denied any other symptoms. Her vital signs are stable. - Physical Exam General: Alert, Oriented x3, Cooperative, No apparent distress HEENT: Atraumatic, PERRLA, Normocephalic Oral: Moist Mucosa Neck: Supple, No JVD, Negative Carotid Bruits, Trachea Midline, Thyroid Normal Size and Texture Lungs: Clear to auscultation, No rhonchi, No wheeze, No rales, Diminished Cardiovascular: Regular rate, Regular Rhythm, Normal S1, Normal S2, No murmurs Abdomen: Bowel Sounds Present, Soft, Non Tender, Non-Distended, No Hepato-splenomegaly Extremities: No clubbing, No cyanosis, Edema - Trace edema. Skin: No rashes, Ulcer/ Wound Lymphatic: No Cervical, Supraclavicular, or Inguinal Adenopathy Neurological: Cranial nerves II-XII grossly intact, Neuro grossly intact Psych/Mental Status: Normal Affect, Appropriate, Alert and oriented to time, place, person, mood and affect Vital Signs Temp Pulse Resp BP Pulse Ox 98.1 F 86 18 128/68 H 91 05/06/18 04:15 05/06/18 04:15 05/06/18 04:15 05/06/18 04:15 05/06/18 06:32 Oxygen Delivery Method Bi-pap Weight: 272 lb 0.807 oz Body Mass Index (BMI) 45.2 Finger Stick Blood Glucose 155 Intake and Output for Last 24 Hours 05/04/18 05/05/18 05/06/18 23:59 23:59 23:59 Intake Total 761 / 761 1565 / 1565 1132 / 1132 Output Total 200 / 200 600 / 600 Balance 761 / 761 1365 / 1365 532 / 532 Laboratory Tests Past 24 Hrs 05/04/18 05/05/18 05/06/18 14:20 04:56 06:30 WBC 9.0 RBC 3.20 L Hgb 8.9 L Hct 29.5 L MCV 92.2 MCH 27.8 MCHC 30.2 L RDW 15.9 H RDW Differential 53.5 H Plt Count 421 MPV 8.4 Immature Gran % (Auto) 0.900 Neut % (Auto) 73.3 H Lymph % (Auto) 6.7 L [place] % (Auto) 15.5 H Eos % (Auto) 3.4 Baso % (Auto) 0.2 Absolute Neuts (auto) 6.6 Absolute Lymphs (auto) 0.60 L Total Counted Not Reportable Differential Comment Diff Path Review Reviewed Reviewed Platelet Estimate ADEQUATE RBC Morphology N CHROM Anisocytosis 1+ PT INR Sodium Potassium Chloride Carbon Dioxide Anion Gap BUN Creatinine Estim Creat Clear Calc Est GFR (MDRD) Af Amer Est GFR (MDRD) Non-Af BUN/Creatinine Ratio Glucose Calcium 05/06/18 05/06/18 06:30 06:30 WBC RBC Hgb Hct MCV MCH MCHC RDW RDW Differential Plt Count MPV Immature Gran % (Auto) Neut % (Auto) Lymph % (Auto) [place] % (Auto) Eos % (Auto) Baso % (Auto) Absolute Neuts (auto) Absolute Lymphs (auto) Total Counted Differential Comment Diff Path Review Platelet Estimate RBC Morphology Anisocytosis PT 28.7 H INR 2.7 Sodium 141 Potassium 4.6 Chloride 107 Carbon Dioxide 25.0 Anion Gap 9 BUN 14 Creatinine 1.28 H Estim Creat Clear Calc 34.17 Est GFR (MDRD) Af Amer 52 L Est GFR (MDRD) Non-Af 43 L BUN/Creatinine Ratio 10.9 Glucose 119 H Calcium 8.5 POC Glucose 05/06/18 05/05/18 05/05/18 06:26 22:12 16:10 POC Glucose 118 H 127 H 100 05/05/18 11:27 POC Glucose 122 H Clinical Impression(s) from Imaging Studies Knee X-Ray 05/05/18 12:00 IMPRESSION: Patient has undergone replacement of the left total knee arthroplasty hardware since 2016. The femoral, tibial, and patellar prostheses are in anatomic alignment relative to one another, but there is an atypical gap between the plateau of the metal tibial prosthesis and the [place] tibial plateau, raising question of abnormal displacement of the tibial prosthesis from the [place] tibia. Correlation with any previous outside films of the knee done in the interval between these studies is suggested. N.B. : The above information has been verbally conveyed by Ryan Mojica MD to Rita Ramos MD, on 05/05/2018 17:43:05 (ET). Electronically Signed: Ryan Mojica MD at 17:50 EST , Service support , ADDENDUM: 05/05/18 1758 IMPRESSION: Patient has undergone replacement of the left total knee arthroplasty hardware since 2016. The femoral, tibial, and patellar prostheses are in anatomic alignment relative to one another, but there is an atypical gap between the plateau of the metal tibial prosthesis and the [place] tibial plateau, raising question of abnormal displacement of the tibial prosthesis from the [place] tibia. Correlation with any previous outside films of the knee done in the interval between these studies is suggested. N.B. : The above information has been verbally conveyed by Ryan Mojica MD to Rita Ramos MD, on 05/05/2018 17:43:05 (ET). Electronically Signed: Ryan Mojica MD at 17:50 EST , Service support , Medical Necessity - Tobacco Use Smoking Status: Never smoker Assessment/Plan This is a 77 years old female patient presented to the emergency room because of right foot pain and swelling as well as redness that started around 1 week ago after she closed her car door on her right foot, found to have acute cellulitis of the right foot in addition to possible right foot hematoma and she is being admitted for treatment. #1 acute right foot cellulitis/acute traumatic probably infected right foot hematoma: Status post incision and drainage, postoperative day 1. She is on IV Zosyn. Vital signs have been stable, afebrile. Blood and wound cultures are pending. Pain of the left foot significantly improved. Plan to continue same treatment. #2 left knee pain: Patient had left knee replacement, has been complaining of left knee pain for the last several weeks. X-ray done and revealed atypical Between the metal tibial prosthesis and [place] tibial plateau. Orthopedic surgery consulted. #3 history of PE/DVTs: Coumadin held, today's INR is 2.7. Plan to keep Coumadin on hold, repeat INR tomorrow morning. #4 type 2 diabetes mellitus: Blood sugar has been stable, continue ADA diet and insulin sliding scale only. #5 chronic anemia: Anemia of chronic disease, baseline hemoglobin has been around 8-10 g/dL. Admission hemoglobin is 9.8, today's hemoglobin is 8.9 g/dL. Plan to repeat H&H tomorrow morning. #6 metastatic breast cancer: Currently on anastrozole, continue same treatment. #7 unspecified lung disease: She has been seeing Dr. SUTHERLAND as outpatient, started on long taper of prednisone over the last 2 months, currently on 2.5 mg prednisone daily. Pulse ox is maintained on room air. Continue prednisone, DuoNeb every 6 hours, chest x-ray as above. #8 hypothyroidism: Continue levothyroxine. #9 hypertension: Blood pressure stable, continue Aldactone, resume Lasix. #10 hyperlipidemia: Continue statins. #11 DVT prophylaxis: SCDs, INR is 2.7. This note was generated with [employer] dictation software. It may contain incorrect words, spelling, and punctuation that were not noted in checking the note before signing. Code Visit Inpatient E&M: 18149 Subs Hosp L2
--- NOTE | 2018-05-06 09:58 | PN_ITS ---
Subjective: Chief complaint: Follow-up after admission for right foot cellulitis, probably infected right foot hematoma status post incision and drainage. Patient complains of left knee pain, accident and she was found to have suspected displaced tibial prosthesis. Patient seen and examined. No acute events overnight. Right foot pain is significantly improved, still having some pain upon movement. Denies fever chills. Left knee pain is still there. Denied any other symptoms. Her vital signs are stable. - Physical Exam General: Alert, Oriented x3, Cooperative, No apparent distress HEENT: Atraumatic, PERRLA, Normocephalic Oral: Moist Mucosa Neck: Supple, No JVD, Negative Carotid Bruits, Trachea Midline, Thyroid Normal Size and Texture Lungs: Clear to auscultation, No rhonchi, No wheeze, No rales, Diminished Cardiovascular: Regular rate, Regular Rhythm, Normal S1, Normal S2, No murmurs Abdomen: Bowel Sounds Present, Soft, Non Tender, Non-Distended, No Hepato- splenomegaly Extremities: No clubbing, No cyanosis, Edema - Trace edema. Skin: No rashes, Ulcer/ Wound Lymphatic: No Cervical, Supraclavicular, or Inguinal Adenopathy Neurological: Cranial nerves II-XII grossly intact, Neuro grossly intact Psych/Mental Status: Normal Affect, Appropriate, Alert and oriented to time, place, person, mood and affect Vital Signs Temp Pulse Resp BP Pulse Ox 98.1 F 86 18 128/68 H 91 05/06/18 04:15 05/06/18 04:15 05/06/18 04:15 05/06/18 04:15 05/06/18 06:32 Oxygen Delivery Method Bi-pap Weight: 272 lb 0.807 oz Body Mass Index (BMI) 45.2 Finger Stick Blood Glucose 155 Intake and Output for Last 24 Hours 05/04/18 05/05/18 05/06/18 23:59 23:59 23:59 Intake Total 761 / 761 1565 / 1565 1132 / 1132 Output Total 200 / 200 600 / 600 Balance 761 / 761 1365 / 1365 532 / 532 Laboratory Tests Past 24 Hrs 05/04/18 05/05/18 05/06/18 14:20 04:56 06:30 WBC 9.0 RBC 3.20 L Hgb 8.9 L Hct 29.5 L MCV 92.2 MCH 27.8 MCHC 30.2 L RDW 15.9 H RDW Differential 53.5 H Plt Count 421 MPV 8.4 Immature Gran % (Auto) 0.900 Neut % (Auto) 73.3 H Lymph % (Auto) 6.7 L [place] % (Auto) 15.5 H Eos % (Auto) 3.4 Baso % (Auto) 0.2 Absolute Neuts (auto) 6.6 Absolute Lymphs (auto) 0.60 L Total Counted Not Reportable Differential Comment Diff Path Review Reviewed Reviewed Platelet Estimate ADEQUATE RBC Morphology N CHROM Anisocytosis 1+ PT INR Sodium Potassium Chloride Carbon Dioxide Anion Gap BUN Creatinine Estim Creat Clear Calc Est GFR (MDRD) Af Amer Est GFR (MDRD) Non-Af BUN/Creatinine Ratio Glucose Calcium 05/06/18 05/06/18 06:30 06:30 WBC RBC Hgb Hct MCV MCH MCHC RDW RDW Differential Plt Count MPV Immature Gran % (Auto) Neut % (Auto) Lymph % (Auto) [place] % (Auto) Eos % (Auto) Baso % (Auto) Absolute Neuts (auto) Absolute Lymphs (auto) Total Counted Differential Comment Diff Path Review Platelet Estimate RBC Morphology Anisocytosis PT 28.7 H INR 2.7 Sodium 141 Potassium 4.6 Chloride 107 Carbon Dioxide 25.0 Anion Gap 9 BUN 14 Creatinine 1.28 H Estim Creat Clear Calc 34.17 Est GFR (MDRD) Af Amer 52 L Est GFR (MDRD) Non-Af 43 L BUN/Creatinine Ratio 10.9 Glucose 119 H Calcium 8.5 POC Glucose 05/06/18 05/05/18 05/05/18 06:26 22:12 16:10 POC Glucose 118 H 127 H 100 05/05/18 11:27 POC Glucose 122 H Clinical Impression(s) from Imaging Studies Knee X-Ray 05/05/18 12:00 IMPRESSION: Patient has undergone replacement of the left total knee arthroplasty hardware since 2016. The femoral, tibial, and patellar prostheses are in anatomic alignment relative to one another, but there is an atypical gap between the plateau of the metal tibial prosthesis and the [place] tibial plateau, raising question of abnormal displacement of the tibial prosthesis from the [place] tibia. Correlation with any previous outside films of the knee done in the interval between these studies is suggested. N.B. : The above information has been verbally conveyed by Ryan Mojica MD to Rita Ramos MD, on 05/05/2018 17:43:05 (ET). Electronically Signed: Ryan Mojica MD at 17:50 EST , Service support , ADDENDUM: 05/05/18 1758 IMPRESSION: Patient has undergone replacement of the left total knee arthroplasty hardware since 2016. The femoral, tibial, and patellar prostheses are in anatomic alignment relative to one another, but there is an atypical gap between the plateau of the metal tibial prosthesis and the [place] tibial plateau, raising question of abnormal displacement of the tibial prosthesis from the [place] tibia. Correlation with any previous outside films of the knee done in the interval between these studies is suggested. N.B. : The above information has been verbally conveyed by Ryan Mojica MD to Rita Ramos MD, on 05/05/2018 17:43:05 (ET). Electronically Signed: Ryan Mojica MD at 17:50 EST , Service support , Medical Necessity - Tobacco Use Smoking Status: Never smoker Assessment/Plan This is a 77 years old female patient presented to the emergency room because of right foot pain and swelling as well as redness that started around 1 week ago after she closed her car door on her right foot, found to have acute cellulitis of the right foot in addition to possible right foot hematoma and she is being admitted for treatment. #1 acute right foot cellulitis/acute traumatic probably infected right foot hematoma: Status post incision and drainage, postoperative day 1. She is on IV Zosyn. Vital signs have been stable, afebrile. Blood and wound cultures are pending. Pain of the left foot significantly improved. Plan to continue same treatment. #2 left knee pain: Patient had left knee replacement, has been complaining of left knee pain for the last several weeks. X-ray done and revealed atypical Between the metal tibial prosthesis and [place] tibial plateau. Orthopedic surgery consulted. #3 history of PE/DVTs: Coumadin held, today's INR is 2.7. Plan to keep Coumadin on hold, repeat INR tomorrow morning. #4 type 2 diabetes mellitus: Blood sugar has been stable, continue ADA diet and insulin sliding scale only. #5 chronic anemia: Anemia of chronic disease, baseline hemoglobin has been around 8-10 g/dL. Admission hemoglobin is 9.8, today's hemoglobin is 8.9 g/dL. Plan to repeat H&H tomorrow morning. #6 metastatic breast cancer: Currently on anastrozole, continue same treatment. #7 unspecified lung disease: She has been seeing Dr. SUTHERLAND as outpatient, started on long taper of prednisone over the last 2 months, currently on 2.5 mg prednisone daily. Pulse ox is maintained on room air. Continue prednisone, DuoNeb every 6 hours, chest x-ray as above. #8 hypothyroidism: Continue levothyroxine. #9 hypertension: Blood pressure stable, continue Aldactone, resume Lasix. #10 hyperlipidemia: Continue statins. #11 DVT prophylaxis: SCDs, INR is 2.7. This note was generated with [employer] dictation software. It may contain incorrect words, spelling, and punctuation that were not noted in checking the note before signing. Code Visit Inpatient E&M: 19733 Subs Hosp L2
--- NOTE | 2018-05-06 10:03 | CON.PCM_ITS ---
Reason for Consult Date of Consultation: 05/06/18 Reason for Consultation: left knee pain. requested by dr zavala History of Present Illness: The patient is a 77 year old F with morbid obesity and multiple medical comorbidities presents today with left knee pain. Patient states that she has limited mobility and uses a walker or Rollator majority of the time. She does occasionally use a wheelchair. She had a left total knee replacement in the past with subsequent periprosthetic fracture and has been revised to a distal femoral prosthesis. Patient notes that she had no appreciable pain up until 1 week ago. Patient injured her right foot 1 week ago and subsequently developed a hematoma. Patient has been on Coumadin and recently had a kidney stone and was being bridged with Lovenox, she is unsure of the discontinuation date. INR was 2.8 on admission. Patient notes that she did not remember any specific trauma to the left knee at the time of the right foot injury however she subsequently developed hematoma and is being treated for overlying cellulitis and infection of the hematoma currently. She is on Zosyn at this time. Patient states that around the time of the injury she also started having left knee pain. She has had left knee pain for about a week with difficulty moving the knee which was not there prior. She currently afebrile and denies any fevers. The patient is morbidly obese and increased swelling is difficult for her to say. 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, left (Chronic) Obesity (Chronic) Osteoarthritis (Chronic) Hyperlipidemia (Chronic) Hypertension (Chronic) Diabetes mellitus type 2 in obese (Chronic) Pulmonary embolism (Chronic) Metastatic breast cancer (Chronic) Restless leg syndrome (Chronic) Hypercoagulable state (Chronic) Hypothyroidism (Chronic) Obstructive sleep apnea (Chronic) History of pulmonary embolism (Chronic) Allergies acetaminophen [From Vicodin] Allergy (Verified 05/04/18 12:35) Unknown codeine Allergy (Verified 05/04/18 12:35) Unknown hydrocodone bitartrate [From Vicodin] Allergy (Verified 05/04/18 12:35) Unknown Home Medications: Ambulatory Orders Medication Instructions Recorded Levothyroxine [Synthroid] 112 mcg PO DAILY 01/24/14 Simvastatin [Zocor] 40 mg PO QHS 01/24/14 Anastrozole [Arimidex] 1 mg PO DAILY 03/17/15 Spironolactone [Aldactone] 25 mg PO DAILY #30 tablet 07/08/15 traZODone [Desyrel] 150 mg PO QHS 05/07/16 Clonazepam [Klonopin] 1 mg PO DAILY PRN PRN #30 tablet 06/09/16 traMADol [Ultram] 50 mg PO Q6H PRN PRN 03/18/17 Bupropion HCl [Bupropion Xl] 150 mg PO DAILY 04/22/18 Potassium Chloride 10 meq PO DAILY 04/22/18 Prednisone 2.5 mg PO QODAY 04/22/18 Acetaminophen [Tylenol] 1,000 mg PO PRN PRN 05/04/18 Acetaminophen/Diphenhydramine 2 tab PO PRN PRN 05/04/18 [Tylenol Pm Ex-Strength Caplet] Budesonide 2 ml INHALATION BID 05/04/18 Fluticasone Furoate [Arnuity 1 puff INHALATION DAILY 05/04/18 Ellipta] Furosemide [Lasix] 20 mg PO DAILY 05/04/18 Warfarin Sodium 1.5 mg PO MOFR 05/04/18 Warfarin Sodium 3 mg PO SUTUWETHSA 05/04/18 Surgical History: cholecystectomy, tonsillectomy, - - Bilateral knee arthroplasty, Bilateral hip arthroplasty, ORIF right ankle fracture, Tubal ligation. 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 Lives: Spouse/ Significant Other Smoking Status: Never smoker Alcohol: None Drugs: None - *Family History Maternal History Items: No pertinent history Paternal History Items: Heart Disease Review of Systems Constitutional: Denies: Chills, Fever HEENT: Denies: Difficulty Hearing, Difficulty Swallowing Cardiovascular: Denies: Chest Pain, Chest Pressure Respiratory: Denies: Cough, Hemoptysis Gastrointestinal: Denies: Abdominal Pain Genitourinary: Denies: Dysuria Musculoskeletal: Reports: Foot Pain - r, Joint Tenderness - l knee Skin: Reports: Wounds - r foot post surgical dressing Neurological: Denies: Tremor, Seizures Psychiatric: Denies: Anxiety Hematologic/ Lymphatic: Reports: Anemia Objective: Left knee radiographs were reviewed. Patient is status post distal femoral replacement. Do not see the proximal portion of the femoral implant. Tibial implant is well fixed with an all polyethylene component. Radiologist was concerned for displacement of the implant but it is not realizes that this is a all polyethylene component. The metal portion of the tibial implant is a mobile-bearing component. The knee is well aligned. - Physical Exam General: Alert, Oriented x3, Cooperative, - - Morbidly obese Extremities: - - Left lower extremity: Palpable effusion of the knee. Tenderness palpation. No overlying erythema. Increased warmth around the knee. Extensor mechanism is intact however patient has weakness. Pain with knee flexion. Stable to varus and valgus stress. Sensations intact light touch distally all nerve distributions. Wiggles toes. Dorsiflexion plantarflexion of the ankle intact. Right foot has a postoperative bulky dressing from podiatry [facility]. Vital Signs Temp Pulse Resp BP Pulse Ox 98.1 F 86 18 128/68 H 91 05/06/18 04:15 05/06/18 04:15 05/06/18 04:15 05/06/18 04:15 05/06/18 06:32 Oxygen Delivery Method Bi-pap Weight: 272 lb 0.807 oz Body Mass Index (BMI) 45.2 Finger Stick Blood Glucose 155 Intake and Output for Last 24 Hours 05/04/18 05/05/18 05/06/18 23:59 23:59 23:59 Intake Total 761 / 761 1565 / 1565 1132 / 1132 Output Total 200 / 200 600 / 600 Balance 761 / 761 1365 / 1365 532 / 532 Laboratory Tests Past 24 Hrs 05/04/18 05/05/18 05/06/18 14:20 04:56 06:30 WBC 9.0 RBC 3.20 L Hgb 8.9 L Hct 29.5 L MCV 92.2 MCH 27.8 MCHC 30.2 L RDW 15.9 H RDW Differential 53.5 H Plt Count 421 MPV 8.4 Immature Gran % (Auto) 0.900 Neut % (Auto) 73.3 H Lymph % (Auto) 6.7 L [place] % (Auto) 15.5 H Eos % (Auto) 3.4 Baso % (Auto) 0.2 Absolute Neuts (auto) 6.6 Absolute Lymphs (auto) 0.60 L Total Counted Not Reportable Differential Comment Diff Path Review Reviewed Reviewed Platelet Estimate ADEQUATE RBC Morphology N CHROM Anisocytosis 1+ PT INR Sodium Potassium Chloride Carbon Dioxide Anion Gap BUN Creatinine Estim Creat Clear Calc Est GFR (MDRD) Af Amer Est GFR (MDRD) Non-Af BUN/Creatinine Ratio Glucose Calcium 05/06/18 05/06/18 06:30 06:30 WBC RBC Hgb Hct MCV MCH MCHC RDW RDW Differential Plt Count MPV Immature Gran % (Auto) Neut % (Auto) Lymph % (Auto) [place] % (Auto) Eos % (Auto) Baso % (Auto) Absolute Neuts (auto) Absolute Lymphs (auto) Total Counted Differential Comment Diff Path Review Platelet Estimate RBC Morphology Anisocytosis PT 28.7 H INR 2.7 Sodium 141 Potassium 4.6 Chloride 107 Carbon Dioxide 25.0 Anion Gap 9 BUN 14 Creatinine 1.28 H Estim Creat Clear Calc 34.17 Est GFR (MDRD) Af Amer 52 L Est GFR (MDRD) Non-Af 43 L BUN/Creatinine Ratio 10.9 Glucose 119 H Calcium 8.5 POC Glucose 05/06/18 05/05/18 05/05/18 06:26 22:12 16:10 POC Glucose 118 H 127 H 100 05/05/18 11:27 POC Glucose 122 H Assessment/Plan Left knee pain status post previous distal femoral replacement. Patient states that she had no particular problems with this knee prior to her recent injury and onset of hematoma and cellulitis/infected hematoma of the right foot. Considering her exam shows increased warmth and the pain has come on with the onset of the infection there is concerns for potential [place]- prosthetic infection. She also has risk for hemarthrosis as she is up previously been on Coumadin. Currently she is been afebrile. She is currently on antibiotics and I have recommended that we do aspirate her knee to rule out infection as the cause. Patient demonstrates an understanding of my recommendations and would like to proceed. We will send the fluid for cell count and culture. We will follow it over the next 24-48 hours to determine appropriateness of treatment. Currently patient could be weightbearing as tolerated with activity as tolerated on the left lower extremity. Procedure: At the bedside sterile procedure was used. The area in the suprapatellar pouch laterally was palpated and marked. Sterile gloves were placed. Betadine and alcohol were used to clean up the area. Sterile needle and syringe were used to aspirate the joint. 5 cc of bloody fluid was removed from the joint. These were placed in red top of purple top tubes under sterile conditions. Patient tolerated the procedure well. [facility] Office:
[2018-05-06 10:22] LABS: Body Fluid Mononuclear WBC # 1.207 10^3/uL; Body Fluid Mononuclear WBC % 45.2 %; Body Fluid Polynuclear WBC # 1.464 10^3/uL; Body Fluid Polynuclear WBC % 54.8 %; Body Fluid Total Cells Counted 2.698 10^3/ul (0.000-0.000); White Blood Count/Body Fluid 2.671 10^3/uL
[2018-05-06] MEDS: Furosemide 20 MG Tablet PO (11:29)
[2018-05-06 11:30] LABS: Auto B Fluid Analyzer BKGD Ct COUNTS W/IN LIMITS (W/IN LIMITS); Color/Body Fluid RED; Source- Body Fluid OTHER
[2018-05-06 11:31] LABS: Appearance/Body Fluid TURBID; Body Fluid QC Type(s) BF1Q; Lymphocytes 35 %; Monocytes 13 %; Neutrophil (Segs) 35 %; Other Cell Type/BF 17 %
--- NOTE | 2018-05-06 11:33 | PN_ITS ---
Subjective: Patient was seen today for follow up on right foot. She relates foot is feeling much better. She was resting in bed, she had left knee aspiration by orthopedics this morning for left knee pain. She denies fever, chills, nausea, or vomiting. She has no complaints of shortness of breath or chest pains. She relates she slept well. Her is at bedside. - Physical Exam General: Alert, Oriented x3, Cooperative, No apparent distress Extremities: Capillary Refill Less than 3 Seconds, Peripheral Pulses Normal - to the foot bilateral., - - s/p I+D dorsal right forefoot - there is less erythema, and significantly less pain, there has been significant improvement with I+D, there is no purulence and no active bleeding, cellulitis is resolving, motor function intact. Painfree ROM to the right foot and ankle. no new wounds or break down to the foot, ankle, or leg bilateral. Left leg and foot with no erythema or cellulitis present. Patient did have left knee aspiration by orthopedic service this morning. Psych/Mental Status: Normal Affect, Appropriate, Alert and oriented to time, place, person, mood and affect Vital Signs Temp Pulse Resp BP Pulse Ox 98.1 F 86 18 128/68 H 91 05/06/18 04:15 05/06/18 04:15 05/06/18 04:15 05/06/18 04:15 05/06/18 06:32 Oxygen Delivery Method Bi-pap Weight: 123.4 kg Body Mass Index (BMI) 45.2 Finger Stick Blood Glucose 155 Intake and Output for Last 24 Hours 05/04/18 05/05/18 05/06/18 23:59 23:59 23:59 Intake Total 761 / 761 1565 / 1565 1132 / 1132 Output Total 200 / 200 600 / 600 Balance 761 / 761 1365 / 1365 532 / 532 Laboratory Tests Past 24 Hrs 05/04/18 05/05/18 05/06/18 14:20 04:56 06:30 WBC 9.0 RBC 3.20 L Hgb 8.9 L Hct 29.5 L MCV 92.2 MCH 27.8 MCHC 30.2 L RDW 15.9 H RDW Differential 53.5 H Plt Count 421 MPV 8.4 Immature Gran % (Auto) 0.900 Neut % (Auto) 73.3 H Lymph % (Auto) 6.7 L [place] % (Auto) 15.5 H Eos % (Auto) 3.4 Baso % (Auto) 0.2 Absolute Neuts (auto) 6.6 Absolute Lymphs (auto) 0.60 L Total Counted Not Reportable Differential Comment Diff Path Review Reviewed Reviewed Platelet Estimate ADEQUATE RBC Morphology N CHROM Anisocytosis 1+ PT INR Sodium Potassium Chloride Carbon Dioxide Anion Gap BUN Creatinine Estim Creat Clear Calc Est GFR (MDRD) Af Amer Est GFR (MDRD) Non-Af BUN/Creatinine Ratio Glucose Calcium Fluid Source Fluid Color Fluid Appearance Fluid WBC Fluid RBC Fluid Tot Cell Count Fld Polynuclear WBCs # Fld Polynuclear WBCs % Fluid Mononuclear WBCs Fld Mononuclear WBCs % Fl Pathologist Comment Fluid Comment 2 05/06/18 05/06/18 05/06/18 06:30 06:30 09:55 WBC RBC Hgb Hct MCV MCH MCHC RDW RDW Differential Plt Count MPV Immature Gran % (Auto) Neut % (Auto) Lymph % (Auto) [place] % (Auto) Eos % (Auto) Baso % (Auto) Absolute Neuts (auto) Absolute Lymphs (auto) Total Counted Differential Comment Diff Path Review Platelet Estimate RBC Morphology Anisocytosis PT 28.7 H INR 2.7 Sodium 141 Potassium 4.6 Chloride 107 Carbon Dioxide 25.0 Anion Gap 9 BUN 14 Creatinine 1.28 H Estim Creat Clear Calc 34.17 Est GFR (MDRD) Af Amer 52 L Est GFR (MDRD) Non-Af 43 L BUN/Creatinine Ratio 10.9 Glucose 119 H Calcium 8.5 Fluid Source Pending Fluid Color Pending Fluid Appearance Pending Fluid WBC 2.671 Fluid RBC 3.96284 Fluid Tot Cell Count 2.698 H Fld Polynuclear WBCs # 1.464 Fld Polynuclear WBCs % 54.8 Fluid Mononuclear WBCs 1.207 Fld Mononuclear WBCs % 45.2 Fl Pathologist Comment Pending Fluid Comment 2 Pending POC Glucose 05/06/18 05/05/18 05/05/18 06:26 22:12 16:10 POC Glucose 118 H 127 H 100 05/05/18 11:27 POC Glucose 122 H Medical Necessity - Tobacco Use Smoking Status: Never smoker Assessment/Plan Contusion with hematoma formation dorsal right foot w/ associated cellulitis s/p I+D on 05/05/18 - site healing and doing much better Diabetes There has been significant improvement to the right foot with I+D procedure from 05/05/18, WBC normal, patient afebrile, patient with significantly less pain to the foot. Site was cleansed with normal saline solution. Packed site with 1/4inch Iodoform gauze packing and applied overlying gauze, kerlix and rustam dressing. Keep clean, dry and intact. No weightbearing to the right foot at this time, keep foot elevated, and keep heels offloaded. Follow cultures. Continue with IV antibiotics - patient on Zosyn at this time. There is no active bleeding to the foot at this time, resume warfarin per the medicine service. Podiatry will continue to follow.
[2018-05-06 11:37] LABS: Bedside Glucose 174 mg/dL (70-110)
--- NOTE | 2018-05-06 13:03 | CASEMGMT ---
POA form in chart, SW printed and placed in chart. Pt's POA also addresses living will information. STEPHEN Ervin MSW
[2018-05-06] MEDS: predniSONE 5 MG Tablet 2.5 MG PO (16:34)
[2018-05-06 16:42] LABS: Bedside Glucose 125 mg/dL (70-110)
[2018-05-06] MEDS: Atorvastatin Calcium 20 MG Tablet PO (22:12)
[2018-05-06] MEDS: Insulin Lispro 100 UNIT/ML INSULN.PEN SQ (22:17)
[2018-05-06] MEDS: clonazePAM 1 MG Tablet PO (22:21)
[2018-05-06 22:22] LABS: Bedside Glucose 170 mg/dL (70-110)
[2018-05-07 04:00] VITALS: BP 153/89; PULSE 81; RESP 16; TEMP 36.9; O2SAT 97
[2018-05-07 06:15] LABS: Hematocrit 29.9 % (37-47); Hemoglobin 8.9 g/dl (12.0-15.0)
[2018-05-07] MEDS: Levothyroxine 112 MCG Tablet PO (06:28)
[2018-05-07 06:40] VITALS: O2SAT 92
[2018-05-07 06:47] LABS: International Normalized Ratio 1.9; Prothrombin Time (Protime)PT. 22.1 SECONDS (11.7-14.9)
[2018-05-07 06:52] LABS: Bedside Glucose 140 mg/dL (70-110)
[2018-05-07] MEDS: Spironolactone 25 MG Tablet PO (07:59)
--- NOTE | 2018-05-07 08:07 | PN.ORTHO_ITS ---
Subjective: Patient is doing well this morning. Remains afebrile. Patient able to move the knee a little more this morning than yesterday with less pain. Overall she still reports pain in the knee. Blood cultures are negative. Cultures from hematoma evacuation were negative. Fluid aspiration showed only 54% PMNs. High number of red blood cells and about 2600 white blood cells which when corrected for high level of red blood cells is at an acceptable level. Gram stain is negative for bacterial organisms. Objective: Left femur films show a well fixed femoral component proximally with good cement mantle. - Physical Exam General: Alert, Oriented x3, Cooperative Extremities: - - Left lower extremity: No increased swelling overnight. No increased warmth. No erythema of the knee. Patient tolerates increased range of motion today. Remains tender to palpate around the knee. Otherwise neurovascular intact distally. Vital Signs Temp Pulse Resp BP Pulse Ox 98.4 F 81 16 153/89 H 92 05/07/18 04:00 05/07/18 04:00 05/07/18 04:00 05/07/18 04:00 05/07/18 06:40 Oxygen Delivery Method Room Air Weight: 272 lb 0.807 oz Body Mass Index (BMI) 45.2 Finger Stick Blood Glucose 155 Intake and Output for Last 24 Hours 05/05/18 05/06/18 05/07/18 23:59 23:59 23:59 Intake Total 1565 / 1565 2132 / 2132 1344.5 / 1344.5 Output Total 200 / 200 1400 / 1400 1750 / 1750 Balance 1365 / 1365 732 / 732 -405.5 / -405.5 Microbiology Past 72 Hours 05/05/18 15:00 Gram Stain - Final Wound Drainage - Other Wound Culture - Preliminary No growth-Final to follow 05/04/18 14:23 Blood Culture - Preliminary Blood Culture (Wb) - Right Hand No growth in 48 hours. 05/04/18 14:20 Blood Culture - Preliminary Blood Culture (Wb) - Anticubital Right No growth in 48 hours. 05/06/18 09:55 Gram Stain - Final Fluid - Synovial (joint) Laboratory Tests Past 24 Hrs 05/06/18 05/06/18 05/06/18 06:30 06:30 09:55 Hgb Hct Total Counted Not Reportable Differential Comment Platelet Estimate ADEQUATE RBC Morphology N CHROM Anisocytosis 1+ PT 28.7 H INR 2.7 Fluid Source OTHER Fluid Color RED Fluid Appearance TURBID Fluid WBC 2.671 Fluid RBC 3.13206 Fluid Tot Cell Count 2.698 H Fld Polynuclear WBCs # 1.464 Fld Polynuclear WBCs % 54.8 Fluid Mononuclear WBCs 1.207 Fld Mononuclear WBCs % 45.2 Fluid Neutrophils 35 Fluid Lymphocytes 35 Fluid Monocytes 13 Fluid Other Cells 17 Fl Pathologist Comment May follow Fluid Comment 2 Not Reportable 05/07/18 05/07/18 05:35 05:35 Hgb 8.9 L Hct 29.9 L Total Counted Differential Comment Platelet Estimate RBC Morphology Anisocytosis PT 22.1 H INR 1.9 Fluid Source Fluid Color Fluid Appearance Fluid WBC Fluid RBC Fluid Tot Cell Count Fld Polynuclear WBCs # Fld Polynuclear WBCs % Fluid Mononuclear WBCs Fld Mononuclear WBCs % Fluid Neutrophils Fluid Lymphocytes Fluid Monocytes Fluid Other Cells Fl Pathologist Comment Fluid Comment 2 POC Glucose 05/07/18 05/06/18 05/06/18 06:24 22:13 16:35 POC Glucose 140 H 170 H 125 H 05/06/18 11:29 POC Glucose 174 H Medical Necessity - Tobacco Use Smoking Status: Never smoker Assessment/Plan Left knee pain status post previous distal femoral replacement. At this point aspiration appearance of the fluid and results would support an acute hemarthrosis of the knee. Patient was on Coumadin. At this time I recommend attempting to continue mobilization of the patient. Implants are stable on radiographs. We will continue to follow cultures peripherally. I have recommended patient follow-up with either Dr. Walker her original surgeon or myself within 1 week of discharge from the hospital. At this time current results do not support an infection however patient has a number of risk factors that require close follow-up. Please call orthopedics for any further questions. [facility] Office:
[2018-05-07 10:00] VITALS: BP 150/70; PULSE 89; RESP 18; TEMP 37.2; O2SAT 98
--- NOTE | 2018-05-07 10:03 | PCM.PROGNOTE ---
Subjective: Chief complaint: Follow-up after admission for right foot cellulitis, probably infected right foot hematoma status post incision and drainage. Patient seen and examined. No acute events. Right foot pain continued to improve as well as left knee pain. Denied fever or chills. Her vital signs are stable. - Physical Exam General: Alert, Oriented x3, Cooperative, No apparent distress HEENT: Atraumatic, PERRLA, EOMI, Normocephalic Oral: Moist Mucosa, No Gingival or Mucosal Lesions/ Ulcerations Neck: Supple, No JVD, Negative Carotid Bruits, Trachea Midline, Thyroid Normal Size and Texture Lungs: Clear to auscultation, No rhonchi, No wheeze, No rales, Diminished Cardiovascular: Regular rate, Regular Rhythm, Normal S1, Normal S2, PMI Normal Abdomen: Bowel Sounds Present, Soft, Non Tender, Non-Distended, Obese Extremities: No clubbing, No cyanosis, Edema - Trace edema. Skin: No rashes, Ulcer/ Wound Lymphatic: No Cervical, Supraclavicular, or Inguinal Adenopathy Neurological: Cranial nerves II-XII grossly intact, Neuro grossly intact Psych/Mental Status: Normal Affect, Appropriate, Alert and oriented to time, place, person, mood and affect Vital Signs Temp Pulse Resp BP Pulse Ox 98.4 F 81 16 153/89 H 92 05/07/18 04:00 05/07/18 04:00 05/07/18 04:00 05/07/18 04:00 05/07/18 06:40 Oxygen Delivery Method Room Air Weight: 272 lb 0.807 oz Body Mass Index (BMI) 45.2 Finger Stick Blood Glucose 155 Intake and Output for Last 24 Hours 05/05/18 05/06/18 05/07/18 23:59 23:59 23:59 Intake Total 1565 / 1565 2132 / 2132 1344.5 / 1344.5 Output Total 200 / 200 1400 / 1400 1750 / 1750 Balance 1365 / 1365 732 / 732 -405.5 / -405.5 Microbiology Past 72 Hours 05/05/18 15:00 Gram Stain - Final Wound Drainage - Other Wound Culture - Preliminary No growth-Final to follow 05/04/18 14:23 Blood Culture - Preliminary Blood Culture (Wb) - Right Hand No growth in 48 hours. 05/04/18 14:20 Blood Culture - Preliminary Blood Culture (Wb) - Anticubital Right No growth in 48 hours. 05/06/18 09:55 Gram Stain - Final Fluid - Synovial (joint) Laboratory Tests Past 24 Hrs 05/06/18 05/07/18 05/07/18 09:55 05:35 05:35 Hgb 8.9 L Hct 29.9 L PT 22.1 H INR 1.9 Fluid Source OTHER Fluid Color RED Fluid Appearance TURBID Fluid WBC 2.671 Fluid RBC 3.06508 Fluid Tot Cell Count 2.698 H Fld Polynuclear WBCs # 1.464 Fld Polynuclear WBCs % 54.8 Fluid Mononuclear WBCs 1.207 Fld Mononuclear WBCs % 45.2 Fluid Neutrophils 35 Fluid Lymphocytes 35 Fluid Monocytes 13 Fluid Other Cells 17 Fl Pathologist Comment May follow Fluid Comment 2 Not Reportable POC Glucose 05/07/18 05/06/18 05/06/18 06:24 22:13 16:35 POC Glucose 140 H 170 H 125 H 05/06/18 11:29 POC Glucose 174 H Medical Necessity - Tobacco Use Smoking Status: Never smoker Assessment/Plan This is a 77 years old female patient presented to the emergency room because of right foot pain and swelling as well as redness that started around 1 week ago after she closed her car door on her right foot, found to have acute cellulitis of the right foot in addition to possible right foot hematoma and she is being admitted for treatment. #1 acute right foot cellulitis/acute traumatic probably infected right foot hematoma: Status post incision and drainage, postoperative day 2. She is on IV Zosyn. Vital signs have been stable, afebrile. Blood culture showed no growth. Wound culture showed no growth. Plan: DC IV Zosyn, start oral Augmentin to complete 7 days of treatment. Patient will need placement to [facility] facility. #2 left knee pain: Patient had left knee replacement, has been complaining of left knee pain for the last several weeks. X-ray done and revealed atypical Between the metal tibial prosthesis and [place] tibial plateau. Orthopedic surgery consulted, stated that the left knee prosthesis is aligned very well, no displacement. Left knee arthrocentesis done, synovitic fluid was negative for septic arthritis, possibly hemarthrosis. No plan for interventions. #3 history of PE/DVTs: Coumadin held, today's INR is 1.9. Plan to resume Coumadin today, repeat INR tomorrow morning. #4 type 2 diabetes mellitus: Blood sugar has been stable, continue ADA diet and insulin sliding scale only. #5 chronic anemia: Anemia of chronic disease, baseline hemoglobin has been around 8-10 g/dL. Admission hemoglobin is 9.8, today's hemoglobin again is 8.9 g/dL. Plan to repeat CBC tomorrow morning. #6 metastatic breast cancer: Currently on anastrozole, continue same treatment. #7 unspecified lung disease: She has been seeing Dr. SUTHERLAND as outpatient, started on long taper of prednisone over the last 2 months, currently on 2.5 mg prednisone daily. Pulse ox is maintained on room air. Continue prednisone, DuoNeb every 6 hours. #8 hypothyroidism: Continue levothyroxine. #9 hypertension: Blood pressure stable, continue Aldactone, resume Lasix. #10 hyperlipidemia: Continue statins. #11 DVT prophylaxis: SCDs, INR is 1.9. This note was generated with [employer] dictation software. It may contain incorrect words, spelling, and punctuation that were not noted in checking the note before signing. Code Visit Inpatient E&M: 13950 Subs Hosp L2
--- NOTE | 2018-05-07 10:08 | PN_ITS ---
Subjective: Chief complaint: Follow-up after admission for right foot cellulitis, probably infected right foot hematoma status post incision and drainage. Patient seen and examined. No acute events. Right foot pain continued to improve as well as left knee pain. Denied fever or chills. Her vital signs are stable. - Physical Exam General: Alert, Oriented x3, Cooperative, No apparent distress HEENT: Atraumatic, PERRLA, EOMI, Normocephalic Oral: Moist Mucosa, No Gingival or Mucosal Lesions/ Ulcerations Neck: Supple, No JVD, Negative Carotid Bruits, Trachea Midline, Thyroid Normal Size and Texture Lungs: Clear to auscultation, No rhonchi, No wheeze, No rales, Diminished Cardiovascular: Regular rate, Regular Rhythm, Normal S1, Normal S2, PMI Normal Abdomen: Bowel Sounds Present, Soft, Non Tender, Non-Distended, Obese Extremities: No clubbing, No cyanosis, Edema - Trace edema. Skin: No rashes, Ulcer/ Wound Lymphatic: No Cervical, Supraclavicular, or Inguinal Adenopathy Neurological: Cranial nerves II-XII grossly intact, Neuro grossly intact Psych/Mental Status: Normal Affect, Appropriate, Alert and oriented to time, place, person, mood and affect Vital Signs Temp Pulse Resp BP Pulse Ox 98.4 F 81 16 153/89 H 92 05/07/18 04:00 05/07/18 04:00 05/07/18 04:00 05/07/18 04:00 05/07/18 06:40 Oxygen Delivery Method Room Air Weight: 272 lb 0.807 oz Body Mass Index (BMI) 45.2 Finger Stick Blood Glucose 155 Intake and Output for Last 24 Hours 05/05/18 05/06/18 05/07/18 23:59 23:59 23:59 Intake Total 1565 / 1565 2132 / 2132 1344.5 / 1344.5 Output Total 200 / 200 1400 / 1400 1750 / 1750 Balance 1365 / 1365 732 / 732 -405.5 / -405.5 Microbiology Past 72 Hours 05/05/18 15:00 Gram Stain - Final Wound Drainage - Other Wound Culture - Preliminary No growth-Final to follow 05/04/18 14:23 Blood Culture - Preliminary Blood Culture (Wb) - Right Hand No growth in 48 hours. 05/04/18 14:20 Blood Culture - Preliminary Blood Culture (Wb) - Anticubital Right No growth in 48 hours. 05/06/18 09:55 Gram Stain - Final Fluid - Synovial (joint) Laboratory Tests Past 24 Hrs 05/06/18 05/07/18 05/07/18 09:55 05:35 05:35 Hgb 8.9 L Hct 29.9 L PT 22.1 H INR 1.9 Fluid Source OTHER Fluid Color RED Fluid Appearance TURBID Fluid WBC 2.671 Fluid RBC 3.91848 Fluid Tot Cell Count 2.698 H Fld Polynuclear WBCs # 1.464 Fld Polynuclear WBCs % 54.8 Fluid Mononuclear WBCs 1.207 Fld Mononuclear WBCs % 45.2 Fluid Neutrophils 35 Fluid Lymphocytes 35 Fluid Monocytes 13 Fluid Other Cells 17 Fl Pathologist Comment May follow Fluid Comment 2 Not Reportable POC Glucose 05/07/18 05/06/18 05/06/18 06:24 22:13 16:35 POC Glucose 140 H 170 H 125 H 05/06/18 11:29 POC Glucose 174 H Medical Necessity - Tobacco Use Smoking Status: Never smoker Assessment/Plan This is a 77 years old female patient presented to the emergency room because of right foot pain and swelling as well as redness that started around 1 week ago after she closed her car door on her right foot, found to have acute cellulitis of the right foot in addition to possible right foot hematoma and she is being admitted for treatment. #1 acute right foot cellulitis/acute traumatic probably infected right foot hematoma: Status post incision and drainage, postoperative day 2. She is on IV Zosyn. Vital signs have been stable, afebrile. Blood culture showed no growth. Wound culture showed no growth. Plan: DC IV Zosyn, start oral Augmentin to complete 7 days of treatment. Patient will need placement to long term facility. #2 left knee pain: Patient had left knee replacement, has been complaining of left knee pain for the last several weeks. X-ray done and revealed atypical Between the metal tibial prosthesis and [place] tibial plateau. Orthopedic surgery consulted, stated that the left knee prosthesis is aligned very well, no displacement. Left knee arthrocentesis done, synovitic fluid was negative for septic arthritis, possibly hemarthrosis. No plan for interventions. #3 history of PE/DVTs: Coumadin held, today's INR is 1.9. Plan to resume Coumadin today, repeat INR tomorrow morning. #4 type 2 diabetes mellitus: Blood sugar has been stable, continue ADA diet and insulin sliding scale only. #5 chronic anemia: Anemia of chronic disease, baseline hemoglobin has been around 8-10 g/dL. Admission hemoglobin is 9.8, today's hemoglobin again is 8.9 g/dL. Plan to repeat CBC tomorrow morning. #6 metastatic breast cancer: Currently on anastrozole, continue same treatment. #7 unspecified lung disease: She has been seeing Dr. SUTHERLAND as outpatient, started on long taper of prednisone over the last 2 months, currently on 2.5 mg prednisone daily. Pulse ox is maintained on room air. Continue prednisone, DuoNeb every 6 hours. #8 hypothyroidism: Continue levothyroxine. #9 hypertension: Blood pressure stable, continue Aldactone, resume Lasix. #10 hyperlipidemia: Continue statins. #11 DVT prophylaxis: SCDs, INR is 1.9. This note was generated with [email or web address] dictation software. It may contain incorrect words, spelling, and punctuation that were not noted in checking the note before signing. Code Visit Inpatient E&M: 34417 Subs Hosp L2
[2018-05-07] MEDS: Nystatin Powder 15gm Bottle 1 APPLIC TOPICAL ×2 (10:58→21:27)
[2018-05-07] MEDS: Anastrozole 1 MG Tablet PO (10:58)
[2018-05-07] MEDS: buPROPion (XL) 150 MG TABLET.XL PO (10:59)
[2018-05-07] MEDS: Furosemide 20 MG Tablet PO (11:02)
--- NOTE | 2018-05-07 11:26 | PCM.PROGNOTE ---
Subjective: Patient was seen this morning for follow up hematoma s/p I+D right foot and bilateral leg cellulitis. Patient relates right foot continues to improve and overall feeling much better. She has no new complaints. No fever, chills, nausea or vomiting. - Physical Exam General: Alert, Oriented x3, Cooperative, No apparent distress Extremities: Capillary Refill Less than 3 Seconds, No Calf Tenderness, Peripheral Pulses Normal, - - s/p I+D dorsal right forefoot - site healing, significantly less pain, there has been continued improvement with I+D, there is no purulence and no active bleeding, cellulitis is resolving, there is residual ecchymosis, motor function intact. Painfree ROM to the right foot and ankle, there is some residual tenderness to the dorsal forefoot. No new wounds or break down to the foot, ankle, or leg bilateral. No streaking, no necrosis, no fluctuance bilateral foot/ankle. Left leg and foot with no erythema or cellulitis present. Psych/Mental Status: Normal Affect, Appropriate, Alert and oriented to time, place, person, mood and affect Vital Signs Temp Pulse Resp BP Pulse Ox 98.9 F 89 18 150/70 H 98 05/07/18 10:00 05/07/18 10:00 05/07/18 10:00 05/07/18 10:00 05/07/18 10:00 Oxygen Delivery Method Room Air Weight: 123.4 kg Body Mass Index (BMI) 45.2 Finger Stick Blood Glucose 155 Intake and Output for Last 24 Hours 05/05/18 05/06/18 05/07/18 23:59 23:59 23:59 Intake Total 1565 / 1565 2132 / 2132 1344.5 / 1344.5 Output Total 200 / 200 1400 / 1400 1750 / 1750 Balance 1365 / 1365 732 / 732 -405.5 / -405.5 Microbiology Past 72 Hours 05/05/18 15:00 Gram Stain - Final Wound Drainage - Other Wound Culture - Preliminary No growth-Final to follow 05/04/18 14:23 Blood Culture - Preliminary Blood Culture (Wb) - Right Hand No growth in 48 hours. 05/04/18 14:20 Blood Culture - Preliminary Blood Culture (Wb) - Anticubital Right No growth in 48 hours. 05/06/18 09:55 Gram Stain - Final Fluid - Synovial (joint) Laboratory Tests Past 24 Hrs 05/06/18 05/07/18 05/07/18 09:55 05:35 05:35 Hgb 8.9 L Hct 29.9 L PT 22.1 H INR 1.9 Fluid Source OTHER Fluid Color RED Fluid Appearance TURBID Fluid Neutrophils 35 Fluid Lymphocytes 35 Fluid Monocytes 13 Fluid Other Cells 17 Fl Pathologist Comment May follow Fluid Comment 2 Not Reportable POC Glucose 05/07/18 05/06/18 05/06/18 06:24 22:13 16:35 POC Glucose 140 H 170 H 125 H 05/06/18 11:29 POC Glucose 174 H Medical Necessity - Tobacco Use Smoking Status: Never smoker Assessment/Plan Contusion with hematoma formation dorsal right foot w/ associated cellulitis s/p I+D on 05/05/18 - site healing well Cellulitis left leg - resolved Diabetes There has been continued improvement to the right foot with I+D procedure from 05/05/18, patient afebrile, patient with less pain to the foot. Site was cleansed with normal saline solution. Packed site with 1/4inch Iodoform gauze packing and applied overlying gauze, kerlix and rustam dressing. Keep clean, dry and intact. No weightbearing to the right foot at this time, keep foot elevated, and keep heels offloaded. Follow cultures - no growth so far. Patient being switched to oral antibiotic - Augmentin. Plan is for patient to go to rehab nursing facility. Podiatry will continue to follow.
[2018-05-07 11:52] LABS: Bedside Glucose 150 mg/dL (70-110)
[2018-05-07] MEDS: Insulin Lispro 100 UNIT/ML INSULN.PEN SQ (13:02)
[2018-05-07 13:12] VITALS: PULSE 79; RESP 18
[2018-05-07] MEDS: Ipratropium/Albuterol Sulfate 3 ML AMPUL.NEB INHALATION (13:12)
[2018-05-07 15:26] VITALS: BP 125/80; PULSE 87; RESP 18; TEMP 37.2; O2SAT 98
[2018-05-07 16:42] LABS: Bedside Glucose 136 mg/dL (70-110)
[2018-05-07 21:14] VITALS: BP 159/92; PULSE 94; RESP 18; TEMP 36.9; O2SAT 99
[2018-05-07] MEDS: Atorvastatin Calcium 20 MG Tablet PO (21:26)
[2018-05-07] MEDS: traZODone 50 MG Tablet 150 MG PO (21:26)
[2018-05-07 21:27] LABS: Bedside Glucose 147 mg/dL (70-110)
[2018-05-07] MEDS: Amox/Clavulanate 875 MG Tablet PO (21:27)
[2018-05-08] VITALS (8 sets, daily range): BP systolic 110–157; BP diastolic 76–90; PULSE 71–102; RESP 16–19; TEMP 36.4–36.9; O2SAT 93–99
[2018-05-08 05:49] LABS: Absolute Lymphocyte Count 0.93 X10^3/ul (0.83-4.51); Absolute Neutrophil Count 4.8 X10^3/uL (2.0-7.7); Basophil# 0.04 X10^3/uL; Basophil% 0.6 % (0-1); Eosinophil# 0.41 X10^3/uL; Eosinophils% 5.7 % (0-5); Hematocrit 33.6 % (37-47); Hemoglobin 9.9 g/dl (12.0-15.0); Lymphocyte # 0.93 X10^3/ul (4.0); Lymphocyte % 12.9 % (19-41); Mean Corp Hgb Conc 29.5 g/gl (32-36); Mean Corpuscular Hgb 27.4 pg (27.0-32.0); Mean Corpuscular Volume 93.1 fL (81-99); Mean Platelet Vol. 8.3 fl (6.2-12.0); Monocyte# 0.95 X10^3/uL; Monocyte% 13.2 % (0-10); Neutrophil # 4.75 X10^3/uL (2.7-7.7); Neutrophil % 65.7 % (47-70); Platelet Count 526 K/mm3 (150-450); RBC Distribution Width CV 15.3 % (11.6-14.6); RBC Distribution Width SD 49.9 fl (35.1-43.9); Red Blood Count 3.61 M/mm3 (4.2-5.4); White Blood Count 7.2 K/mm3 (4.4-11.0)
[2018-05-08 05:58] LABS: International Normalized Ratio 1.4; Prothrombin Time (Protime)PT. 17.5 SECONDS (11.7-14.9)
[2018-05-08] MEDS: Levothyroxine 112 MCG Tablet PO (05:59)
[2018-05-08 06:25] LABS: POSITIVE COUNT NO; POSITIVE DIFFERENTIAL NO; POSITIVE MORPHOLOGY NO
[2018-05-08 06:51] LABS: Bedside Glucose 138 mg/dL (70-110)
[2018-05-08] MEDS: predniSONE 5 MG Tablet 2.5 MG PO (08:06)
[2018-05-08] MEDS: buPROPion (XL) 150 MG TABLET.XL PO (08:06)
[2018-05-08] MEDS: Spironolactone 25 MG Tablet PO (08:06)
[2018-05-08] MEDS: Nystatin Powder 15gm Bottle 1 APPLIC TOPICAL ×2 (08:06→23:12)
[2018-05-08] MEDS: Furosemide 20 MG Tablet PO (08:07)
[2018-05-08] MEDS: Amox/Clavulanate 875 MG Tablet PO ×2 (08:07→23:11)
--- NOTE | 2018-05-08 08:36 | PN_ITS ---
Subjective: Patient is a 77-year-old lady who presented with an infected right foot hematoma. Patient admitted to regular nursing floor consultation placed to Dr. milan with podiatry who did perform incision and drainage. Cultures obtained have so far remained negative to date. Plan is for patient to be transferred to a long term facility pending bed availability Objective: GENERAL: cooperative HEENT: Atraumatic; moist oral mucosa EYES; Anicteric, Normal Conjunctiva NECK; supple, normal thyroid, no distended JVD. RESPIRATORY: Diminished to auscultation bilaterally, CARDIOVASCULAR: Regular S1 S2, no audible murmurs GI: soft, non-tender, normoactive bowel sounds, : No Renal angle tenderness; EXTREMITIES: On the dorsal surface of the right foot clean dry and intact MUSCULOSKELETAL: No Joint Tenderness; NEURO: Awake; no lateralizing signs. PSYCH; Normal affect Vitals/I&O's: Vital Signs Temp Pulse Resp BP Pulse Ox 97.7 F L 85 18 110/84 H 98 05/08/18 07:55 05/08/18 07:55 05/08/18 07:55 05/08/18 07:55 05/08/18 07:55 Oxygen Delivery Method Room Air Weight: 123.4 kg Body Mass Index (BMI) 45.2 Finger Stick Blood Glucose 155 Intake and Output for Last 24 Hours 05/06/18 05/07/18 05/08/18 23:59 23:59 23:59 Intake Total 2132 / 2132 3199.5 / 3199.5 600 / 600 Output Total 1400 / 1400 3700 / 3700 1675 / 1675 Balance 732 / 732 -500.5 / -500.5 -1075 / -1075 Microbiology Past 72 Hours 05/06/18 09:55 Fluid - Synovial (joint) Gram Stain - Final 05/06/18 09:55 Fluid - Synovial (joint) Body Fluid Culture - Preliminary No growth-Final to follow 05/05/18 15:00 Wound Drainage - Other Gram Stain - Final 05/05/18 15:00 Wound Drainage - Other Wound Culture - Preliminary No growth-Final to follow 05/04/18 14:23 Blood Culture (Wb) - Right Hand Blood Culture - Preliminary No growth in 48 hours. 05/04/18 14:20 Blood Culture (Wb) - Anticubital Right Blood Culture - Preliminary No growth in 48 hours. Laboratory Results 05/07/18 11:40: POC Glucose 150 H 05/07/18 16:38: POC Glucose 136 H 05/07/18 21:21: POC Glucose 147 H 05/08/18 05:22: WBC 7.2, RBC 3.61 L, Hgb 9.9 L, Hct 33.6 L, MCV 93.1, MCH 27.4, MCHC 29.5 L, RDW 15.3 H, RDW Differential 49.9 H, Plt Count 526 H, MPV 8.3, Immature Gran % (Auto) 1.900 H, Neut % (Auto) 65.7, Lymph % (Auto) 12.9 L, [place] % (Auto) 13.2 H, Eos % (Auto) 5.7 H, Baso % (Auto) 0.6, Absolute Neuts (auto) 4.8, Absolute Lymphs (auto) 0.93, Total Counted Not Reportable 05/08/18 05:22: PT 17.5 H, INR 1.4 05/08/18 06:46: POC Glucose 138 H Current Medications Acetaminophen (Tylenol) 650 mg PO Q6H PRN PRN PRN Reason: Mild Pain (scale 0-3)/T>100.7 Last Admin: 05/05/18 19:55 Dose: 650 mg Albuterol/Ipratropium (Duoneb) 3 ml INHALATION Q6H.RT [facility] Last Admin: 05/08/18 07:29 Dose: Not Given Amoxicillin/Clavulanate Potassium (Augmentin Tablet) 875 mg PO BID [facility] Stop: 05/10/18 10:01 Last Admin: 05/08/18 08:07 Dose: 875 mg Anastrozole (Arimidex) 1 mg PO DAILY [facility] Last Admin: 05/08/18 08:10 Dose: Not Given Atorvastatin Calcium (Lipitor) 20 mg PO QHS [facility] Last Admin: 05/07/18 21:26 Dose: 20 mg Bupropion HCl (Wellbutrin Xl) 150 mg PO DAILY [facility] Last Admin: 05/08/18 08:06 Dose: 150 mg Clonazepam (Klonopin) 1 mg PO DAILY PRN PRN PRN Reason: restless leg syndrome Last Admin: 05/06/18 22:21 Dose: 1 mg Dextrose (D50w Syringe) 0 gm IV X1 PRN; Protocol PRN Reason: Hypoglycemia Furosemide (Lasix) 20 mg PO DAILY [facility] Last Admin: 05/08/18 08:07 Dose: 20 mg Glucagon () 1 mg IM .X1 PRN PRN Reason: Hypoglycemia Insulin Human Lispro (Humalog Kwikpen (Bkc)) 0 unit SQ ACHS [facility]; Protocol Last Admin: 05/08/18 06:48 Dose: Not Given Levothyroxine Sodium (Synthroid) 112 mcg PO DAILY@0600 [facility] Last Admin: 05/08/18 05:59 Dose: 112 mcg Magnesium Hydroxide (Milk Of Magnesia) 30 ml PO DAILY PRN PRN PRN Reason: Constipation Morphine Sulfate () 1 mg IV Q4H PRN PRN PRN Reason: SEVERE PAIN (6-10/10) Last Admin: 05/05/18 09:32 Dose: 1 mg Nystatin (Mycostatin Powder) 1 applic TOPICAL BID [facility]; Protocol Last Admin: 05/08/18 08:06 Dose: 1 applicatio Ondansetron HCl (Zofran) 4 mg IV Q8H PRN PRN PRN Reason: Nausea Oxycodone HCl (Oxyir) 5 mg PO Q4H PRN PRN PRN Reason: Moderate Pain (pain scale 4-5) Last Admin: 05/05/18 18:00 Dose: 5 mg Prednisone () 2.5 mg PO QODAY@0800 [facility] Last Admin: 05/08/18 08:06 Dose: 2.5 mg Sodium Chloride () 5 - 15 ml IV UD PRN PRN Reason: SALINE FLUSH [facility] Last Admin: 05/08/18 08:06 Dose: 25 mg Tramadol HCl (Ultram) 50 mg PO Q6H PRN PRN PRN Reason: PAIN Trazodone HCl (Desyrel) 150 mg PO QHS [facility] Last Admin: 05/07/18 21:26 Dose: 150 mg Warfarin Sodium (Coumadin (Pbkc)) 3 mg PO SuTuWeThSa@1700 [facility] Last Admin: 05/07/18 17:21 Dose: 3 mg Warfarin Sodium (Coumadin (Pbkc)) 1.5 mg PO MoFr@1700 [facility] Medical Necessity - Tobacco Use Smoking Status: Never smoker Assessment/Plan Patient is a 77-year-old lady who presented with an infected right foot hematoma. Patient admitted to regular nursing floor consultation placed to Dr. Winston with podiatry who did perform incision and drainage. Cultures obtained have so far remained negative to date. Plan is for patient to be transferred to a long term facility pending bed availability 1. Infected right foot hematoma status post incision and drainage on 05/05/2018. Patient initially managed with Zosyn switched to Augmentin. Cultures have remained negative to date 2. 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 Diabetes mellitus type II: patient's oral hypoglycemics held. Placed on Accu-Cheks a.c. and at bedtime and covered with sliding scale insulin 4. Hypertension-blood pressure controlled, home medications continued with dose adjustment as needed 5. Hypothyroidism-patient is on levothyroxine home dose continued 6. History of metastatic breast CA currently on anastrozole; continued 7. Anemia secondary to anemia of chronic disorder monitoring H&H 8. Left knee pain imaging studies demonstrated no acute fracture left knee arthrocentesis performed did not reveal any evidence of septic arthritis 9. Dyslipidemia-patient is on statin therapy, continued at home dose 10. DVT prophylaxis on Coumadin Active Medications Acetaminophen (Tylenol) 650 mg PO Q6H PRN PRN PRN Reason: Mild Pain (scale 0-3)/T>100.7 Last Admin: 05/05/18 19:55 Dose: 650 mg Albuterol/Ipratropium (Duoneb) 3 ml INHALATION Q6H.RT [facility] Last Admin: 05/08/18 07:29 Dose: Not Given Amoxicillin/Clavulanate Potassium (Augmentin Tablet) 875 mg PO BID [facility] Stop: 05/10/18 10:01 Last Admin: 05/08/18 08:07 Dose: 875 mg Anastrozole (Arimidex) 1 mg PO DAILY [facility] Last Admin: 05/08/18 08:10 Dose: Not Given Atorvastatin Calcium (Lipitor) 20 mg PO QHS [facility] Last Admin: 05/07/18 21:26 Dose: 20 mg Bupropion HCl (Wellbutrin Xl) 150 mg PO DAILY [facility] Last Admin: 05/08/18 08:06 Dose: 150 mg Clonazepam (Klonopin) 1 mg PO DAILY PRN PRN PRN Reason: restless leg syndrome Last Admin: 05/06/18 22:21 Dose: 1 mg Dextrose (D50w Syringe) 0 gm IV X1 PRN; Protocol PRN Reason: Hypoglycemia Furosemide (Lasix) 20 mg PO DAILY [facility] Last Admin: 05/08/18 08:07 Dose: 20 mg Glucagon () 1 mg IM .X1 PRN PRN Reason: Hypoglycemia Insulin Human Lispro (Humalog Kwikpen (Bkc)) 0 unit SQ ACHS [facility]; Protocol Last Admin: 05/08/18 06:48 Dose: Not Given Levothyroxine Sodium (Synthroid) 112 mcg PO DAILY@0600 [facility] Last Admin: 05/08/18 05:59 Dose: 112 mcg Magnesium Hydroxide (Milk Of Magnesia) 30 ml PO DAILY PRN PRN PRN Reason: Constipation Morphine Sulfate () 1 mg IV Q4H PRN PRN PRN Reason: SEVERE PAIN (6-10/10) Last Admin: 05/05/18 09:32 Dose: 1 mg Nystatin (Mycostatin Powder) 1 applic TOPICAL BID [facility]; Protocol Last Admin: 05/08/18 08:06 Dose: 1 applicatio Ondansetron HCl (Zofran) 4 mg IV Q8H PRN PRN PRN Reason: Nausea Oxycodone HCl (Oxyir) 5 mg PO Q4H PRN PRN PRN Reason: Moderate Pain (pain scale 4-5) Last Admin: 05/05/18 18:00 Dose: 5 mg Prednisone () 2.5 mg PO QODAY@0800 [facility] Last Admin: 05/08/18 08:06 Dose: 2.5 mg Sodium Chloride () 5 - 15 ml IV UD PRN PRN Reason: SALINE FLUSH Spironolactone (Aldactone) 25 mg PO DAILYCM [facility] Last Admin: 05/08/18 08:06 Dose: 25 mg Tramadol HCl (Ultram) 50 mg PO Q6H PRN PRN PRN Reason: PAIN Trazodone HCl (Desyrel) 150 mg PO QHS [facility] Last Admin: 05/07/18 21:26 Dose: 150 mg Warfarin Sodium (Coumadin (Pbkc)) 3 mg PO SuTuWeThSa@1700 [facility] Last Admin: 05/07/18 17:21 Dose: 3 mg Warfarin Sodium (Coumadin (Pbkc)) 1.5 mg PO MoFr@1700 [facility] Clinical Impression(s) from Imaging Studies Foot X-Ray 05/04/18 14:06 IMPRESSION: Diffuse soft tissue swelling. Electronically Signed: Rogelio Oleary MD at 15:11 EST , Service support , Lower Extremity CT 05/04/18 18:45 IMPRESSION: There is a subcutaneous loculated hypoattenuation lesion at the dorsal aspect of the foot measures approximately 6 x 5.5 x 2.4 cm is consistent with a hematoma. Electronically Signed: Jovon Driver MD at 0:47 EST Tel , Service support , Chest X-Ray 05/05/18 12:00 IMPRESSION: Question of minor volume loss in the medial right lung base. Heart size upper normal. No CHF. 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 The femoral, tibial, and patellar prostheses are in anatomic alignment relative to one another, but there is an atypical gap between the plateau of the metal tibial prosthesis and the lytton tibial plateau, raising question of abnormal displacement of the tibial prosthesis from the lytton tibia. Correlation with any previous outside films of the knee done in the interval between these studies is suggested. N.B. : The above information has been verbally conveyed by Ryan Mojica MD to Rita Ramos MD, on 05/05/2018 17:43:05 (ET). 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 The femoral, tibial, and patellar prostheses are in anatomic alignment relative to one another, but there is an atypical gap between the plateau of the metal tibial prosthesis and the lytton tibial plateau, raising question of abnormal displacement of the tibial prosthesis from the lytton tibia. Correlation with any previous outside films of the knee done in the interval between these studies is suggested. N.B. : The above information has been verbally conveyed by Ryan Mojica MD to Rita Ramos MD, on 05/05/2018 17:43:05 (ET). Electronically Signed: Ryan Mojica MD at 17:50 EST , Service support , Femur X-Ray 05/06/18 09:47 IMPRESSION: 1. No acute fracture demonstrated. 2. Status post revision of knee replacement following distal femur fracture (2015). Expected operative changes and thick periosteal reaction/callus. Electronically Signed: Anthony Araya MD at 16:16 EST , Service support , Code Visit Inpatient E&M: 17795 Subs Hosp L2
--- NOTE | 2018-05-08 08:57 | NURSING ---
wound photo: right dorsal foot
[2018-05-08] MEDS: Ipratropium/Albuterol Sulfate 3 ML AMPUL.NEB INHALATION ×2 (10:53→18:49)
[2018-05-08] MEDS: Insulin Lispro 100 UNIT/ML INSULN.PEN SQ ×2 (11:39→16:31)
[2018-05-08 11:51] LABS: Bedside Glucose 195 mg/dL (70-110)
--- NOTE | 2018-05-08 12:05 | CASEMGMT ---
Social Work Note Physician updated this worker that pt would like TCU at discharge. SW met with pt to confirm discharge plans. Pt is alert and orientated x3. Pt confirms that she would like to go TCU at discharge. SW explained that this worker will have to make a referral to TCU to determine if they are able to accept pt and if they are pre-cert will need to be submitted. Pt states understanding. SW placed a call to Telma in TCU. Per Telma she is able to accept and will submit for pre-cert. Plan: TCU pending pre-cert Leeanne Holman [employer]IVER, GRAIN TRADER
[2018-05-08 13:51] LABS: Pathologist Comment/Body Fluid Reviewed
[2018-05-08 16:35] LABS: Bedside Glucose 167 mg/dL (70-110)
--- NOTE | 2018-05-08 16:51 | PN_ITS ---
Subjective: Patient seen today for follow up right foot I+D of hematoma. Patient resting comfortably in bed, she relates to minimal to no foot pain, relates right foot is doing well. Dressing was changed today. She does not complaint of any fever, chills, nausea or vomiting. Plan is for patient to go to nursing facility, hopefully TCU pending insurance. - Physical Exam General: Alert, Oriented x3, Cooperative, No apparent distress Extremities: Capillary Refill Less than 3 Seconds, - - Right foot - dressing clean, dry and intact. Reviewed phote from today - right foot s/p I+D dorsal forefoot, significant improvement noted and healing well, no evidence of complication. Also reviewed wound nurse note. Vital Signs Temp Pulse Resp BP Pulse Ox 97.9 F 92 18 127/76 H 99 05/08/18 13:56 05/08/18 13:56 05/08/18 13:56 05/08/18 13:56 05/08/18 13:56 Oxygen Delivery Method Room Air Weight: 123.4 kg Body Mass Index (BMI) 45.2 Finger Stick Blood Glucose 155 Intake and Output for Last 24 Hours 05/06/18 05/07/18 05/08/18 23:59 23:59 23:59 Intake Total 2132 / 2132 3199.5 / 3199.5 1580 / 1580 Output Total 1400 / 1400 3700 / 3700 2775 / 2775 Balance 732 / 732 -500.5 / -500.5 -1195 / -1195 Microbiology Past 72 Hours 05/05/18 15:00 Gram Stain - Final Wound Drainage - Other Wound Culture - Final No growth aerobically. Anaerobic Culture - Preliminary No growth in 48 hours. 05/06/18 09:55 Gram Stain - Final Fluid - Synovial (joint) Body Fluid Culture - Preliminary No growth-Final to follow Anaerobic Culture - Preliminary No growth in 48 hours. 05/04/18 14:23 Blood Culture - Preliminary Blood Culture (Wb) - Right Hand No growth in 48 hours. 05/04/18 14:20 Blood Culture - Preliminary Blood Culture (Wb) - Anticubital Right No growth in 48 hours. Laboratory Tests Past 24 Hrs 05/06/18 05/08/18 05/08/18 09:55 05:22 05:22 WBC 7.2 RBC 3.61 L Hgb 9.9 L Hct 33.6 L MCV 93.1 MCH 27.4 MCHC 29.5 L RDW 15.3 H RDW Differential 49.9 H Plt Count 526 H MPV 8.3 Immature Gran % (Auto) 1.900 H Neut % (Auto) 65.7 Lymph % (Auto) 12.9 L [place] % (Auto) 13.2 H Eos % (Auto) 5.7 H Baso % (Auto) 0.6 Absolute Neuts (auto) 4.8 Absolute Lymphs (auto) 0.93 Total Counted Not Reportable PT 17.5 H INR 1.4 Fl Pathologist Comment Reviewed POC Glucose 05/08/18 05/08/18 05/08/18 16:27 11:33 06:46 POC Glucose 167 H 195 H 138 H 05/07/18 21:21 POC Glucose 147 H Medical Necessity - Tobacco Use Smoking Status: Never smoker Assessment/Plan Contusion with hematoma formation dorsal right foot w/ associated cellulitis s/p I+D on 05/05/18 - doing well Cellulitis left leg - resolved Diabetes There has been continued improvement to the right foot with I+D procedure from 05/05/18, patient afebrile, no leukocytosis, patient with minimal to no pain to the foot. Continue with daily dressing changes, 1/4 inch Iodoform gauze packing and overlying gauze, kerlix and rustam dressing. Ok to progress to partial weightbearing right foot - put weight on heel with use of surgical shoe and walker. Otherwise keep foot elevated as much as possible, and keep heels offloaded. Follow cultures - no growth so far. Patient switched to oral antibiotic - Augmentin. Podiatry will continue to follow, but since foot is doing so well at this time, and just waiting for rehab placement will follow up with patient q 2-3 days. Please call/page us sooner if needed.
[2018-05-08] MEDS: clonazePAM 1 MG Tablet PO (20:05)
[2018-05-08] MEDS: Atorvastatin Calcium 20 MG Tablet PO (23:11)
[2018-05-08] MEDS: traZODone 50 MG Tablet 150 MG PO (23:11)
[2018-05-08 23:29] LABS: Bedside Glucose 102 mg/dL (70-110)
[2018-05-09 03:04] VITALS: BP 140/81; PULSE 86; RESP 18; TEMP 36.9; O2SAT 96
[2018-05-09 05:43] LABS: Hematocrit 35.8 % (37-47); Hemoglobin 10.7 g/dl (12.0-15.0); Mean Corp Hgb Conc 29.9 g/gl (32-36); Mean Corpuscular Hgb 27.5 pg (27.0-32.0); Mean Platelet Vol. 8.3 fl (6.2-12.0); Platelet Count 570 K/mm3 (150-450); RBC Distribution Width CV 15.4 % (11.6-14.6); RBC Distribution Width SD 50.3 fl (35.1-43.9); Red Blood Count 3.89 M/mm3 (4.2-5.4); White Blood Count 7.6 K/mm3 (4.4-11.0)
[2018-05-09 05:50] LABS: Scan Indicated on CBC? Y/N NO
[2018-05-09 06:06] LABS: Anion Gap 11 (5-15); BUN 20 mg/dL (7-18); BUN/Creat Ratio 14.6 RATIO (10-20); Calcium,Total 9.4 mg/dL (8.5-10.1); Chloride 102 mmol/L (98-107); Creatinine, Serum 1.37 mg/dL (0.55-1.02); EST Glomerular Filtration Rate 40 mL/min (>60); Est Glom Filt Rate - Afr Amer 48 mL/min (>60); Estimated Creatinine Clearance 31.93 ml/min; Glucose 138 mg/dL (74-106); Magnesium 2.1 mg/dL (1.6-2.6); Sodium Level 139 mmol/L (136-145)
[2018-05-09] MEDS: Levothyroxine 112 MCG Tablet PO (06:36)
[2018-05-09 06:38] VITALS: PULSE 89; RESP 18; O2SAT 95
[2018-05-09] MEDS: Ipratropium/Albuterol Sulfate 3 ML AMPUL.NEB INHALATION ×2 (06:38→19:15)
[2018-05-09 06:46] LABS: Bedside Glucose 128 mg/dL (70-110)
--- NOTE | 2018-05-09 08:32 | PCM.TXEXTCAR ---
- Diet 05/05/18 15:20 Diet: Cardiac: Calorie-Controlled Is pt able to select menu?: Yes How many daily calories?: 1800 calorie - Wound(s) Lt Elbow Wound Type: Skin Tear RT FOOT Wound Type: puncture s/p I&D infected hematoma Dressing Change: Packed with Iodoform rt neck Wound Type: old iv site left lateral knee Wound Type: Puncture - Therapies Weight Bearing: Partial weight bearing Physical Therapy: Eval and Treat Occupational Therapy: Eval and Treat - Allergies/Procedures Done in Hospital Allergies/Adverse Reactions: Allergies acetaminophen [From Vicodin] Allergy (Verified 05/04/18 12:35) Unknown codeine Allergy (Verified 05/04/18 12:35) Unknown hydrocodone bitartrate [From Vicodin] Allergy (Verified 05/04/18 12:35) Unknown - Type of Care/Length of Stay Estimated LOS: Convalescent Care Less Than 30 days Type of Care Needed: Skilled Rehab Potential: Good Prognosis: Good - Additional Orders/Day of Discharge Day of Discharge: 05/09/18 - Dietary and Speech Recommendations Dietitian Recommendations/Changes: Rec advancement MICHAEL as tolerated to 1800 calorie controlled/cardiac diet. - Follow Up Care Primary Care Physician: Ai Anguiano MD [Primary Care Provider] - Please Follow Up With: Paolo Winston DPM When: in 3-5 days
--- NOTE | 2018-05-09 08:34 | PCM.PN.HOSP ---
Subjective: Patient seen had a relatively uneventful night. Plan is for patient to be transferred to a halfway facility pending insurance precertification Objective: GENERAL: cooperative HEENT: Atraumatic; moist oral mucosa EYES; Anicteric, Normal Conjunctiva NECK; supple, normal thyroid, no distended JVD. RESPIRATORY: Diminished to auscultation bilaterally, CARDIOVASCULAR: Regular S1 S2, no audible murmurs GI: soft, non-tender, normoactive bowel sounds, : No Renal angle tenderness; EXTREMITIES: On the dorsal surface of the right foot clean dry and intact MUSCULOSKELETAL: No Joint Tenderness; NEURO: Awake; no lateralizing signs. PSYCH; Normal affect Vitals/I&O's: Vital Signs Temp Pulse Resp BP Pulse Ox 98.4 F 89 18 140/81 H 95 05/09/18 03:04 05/09/18 06:38 05/09/18 06:38 05/09/18 03:04 05/09/18 06:38 Oxygen Delivery Method Room Air Weight: 123.4 kg Body Mass Index (BMI) 45.2 Finger Stick Blood Glucose 155 Intake and Output for Last 24 Hours 05/07/18 05/08/18 05/09/18 23:59 23:59 23:59 Intake Total 3199.5 / 3199.5 1580 / 1580 500 / 500 Output Total 3700 / 3700 2775 / 2775 1865 / 1865 Balance -500.5 / -500.5 -1195 / -1195 -1365 / -1365 Microbiology Past 72 Hours 05/05/18 15:00 Wound Drainage - Other Gram Stain - Final 05/05/18 15:00 Wound Drainage - Other Wound Culture - Final No growth aerobically. 05/05/18 15:00 Wound Drainage - Other Anaerobic Culture - Preliminary No growth in 48 hours. 05/06/18 09:55 Fluid - Synovial (joint) Gram Stain - Final 05/06/18 09:55 Fluid - Synovial (joint) Body Fluid Culture - Preliminary No growth-Final to follow 05/06/18 09:55 Fluid - Synovial (joint) Anaerobic Culture - Preliminary No growth in 48 hours. 05/04/18 14:23 Blood Culture (Wb) - Right Hand Blood Culture - Preliminary No growth in 48 hours. 05/04/18 14:20 Blood Culture (Wb) - Anticubital Right Blood Culture - Preliminary No growth in 48 hours. Laboratory Results 05/06/18 09:55: Fl Pathologist Comment Reviewed 05/08/18 11:33: POC Glucose 195 H 05/08/18 16:27: POC Glucose 167 H 05/08/18 23:16: POC Glucose 102 05/09/18 05:02: WBC 7.6, RBC 3.89 L, Hgb 10.7 L, Hct 35.8 L, MCV 92.0, MCH 27.5, MCHC 29.9 L, RDW 15.4 H, RDW Differential 50.3 H, Plt Count 570 H, MPV 8.3 05/09/18 05:02: Sodium 139, Potassium 4.0, Chloride 102, Carbon Dioxide 26.0, Anion Gap 11, BUN 20 H, Creatinine 1.37 H, Estim Creat Clear Calc 31.93, Est GFR (MDRD) Af Amer 48 L, Est GFR (MDRD) Non-Af 40 L, BUN/Creatinine Ratio 14.6, Glucose 138 H, Calcium 9.4, Magnesium 2.1 05/09/18 06:40: POC Glucose 128 H Current Medications Acetaminophen (Tylenol) 650 mg PO Q6H PRN PRN PRN Reason: Mild Pain (scale 0-3)/T>100.7 Last Admin: 05/05/18 19:55 Dose: 650 mg Albuterol/Ipratropium (Duoneb) 3 ml INHALATION Q6H.RT [facility] Last Admin: 05/09/18 06:38 Dose: 3 ml Amoxicillin/Clavulanate Potassium (Augmentin Tablet) 875 mg PO BID [facility] Stop: 05/10/18 10:01 Last Admin: 05/08/18 23:11 Dose: 875 mg Anastrozole (Arimidex) 1 mg PO DAILY [facility] Last Admin: 05/08/18 08:10 Dose: Not Given Atorvastatin Calcium (Lipitor) 20 mg PO QHS [facility] Last Admin: 05/08/18 23:11 Dose: 20 mg Bupropion HCl (Wellbutrin Xl) 150 mg PO DAILY [facility] Last Admin: 05/08/18 08:06 Dose: 150 mg Clonazepam (Klonopin) 1 mg PO DAILY PRN PRN PRN Reason: restless leg syndrome Last Admin: 05/08/18 20:05 Dose: 1 mg Dextrose (D50w Syringe) 0 gm IV X1 PRN; Protocol PRN Reason: Hypoglycemia Furosemide (Lasix) 20 mg PO DAILY [facility] Last Admin: 05/08/18 08:07 Dose: 20 mg Glucagon () 1 mg IM .X1 PRN PRN Reason: Hypoglycemia Insulin Human Lispro (Humalog Kwikpen (Bkc)) 0 unit SQ ACHS [facility]; Protocol Last Admin: 05/09/18 06:41 Dose: Not Given Levothyroxine Sodium (Synthroid) 112 mcg PO DAILY@0600 [facility] Last Admin: 05/09/18 06:36 Dose: 112 mcg Magnesium Hydroxide (Milk Of Magnesia) 30 ml PO DAILY PRN PRN PRN Reason: Constipation Morphine Sulfate () 1 mg IV Q4H PRN PRN PRN Reason: SEVERE PAIN (6-10/10) Last Admin: 05/05/18 09:32 Dose: 1 mg Nystatin (Mycostatin Powder) 1 applic TOPICAL BID [facility]; Protocol Last Admin: 05/08/18 23:12 Dose: 1 applicatio Ondansetron HCl (Zofran) 4 mg IV Q8H PRN PRN PRN Reason: Nausea Oxycodone HCl (Oxyir) 5 mg PO Q4H PRN PRN PRN Reason: Moderate Pain (pain scale 4-5) Last Admin: 05/05/18 18:00 Dose: 5 mg Prednisone () 2.5 mg PO QODAY@0800 [facility] Last Admin: 05/08/18 08:06 Dose: 2.5 mg Sodium Chloride () 5 - 15 ml IV UD PRN PRN Reason: SALINE FLUSH Spironolactone (Aldactone) 25 mg PO DAILYCM [facility] Last Admin: 05/08/18 08:06 Dose: 25 mg Tramadol HCl (Ultram) 50 mg PO Q6H PRN PRN PRN Reason: PAIN Trazodone HCl (Desyrel) 150 mg PO QHS [facility] Last Admin: 05/08/18 23:11 Dose: 150 mg Warfarin Sodium (Coumadin (Pbkc)) 3 mg PO SuTuWeThSa@1700 [facility] Last Admin: 05/07/18 17:21 Dose: 3 mg Warfarin Sodium (Coumadin (Pbkc)) 1.5 mg PO MoFr@1700 [facility] Last Admin: 05/08/18 17:26 Dose: 1.5 mg Medical Necessity - Tobacco Use Smoking Status: Never smoker Assessment/Plan Patient is a 77-year-old lady who presented with an infected right foot hematoma. Patient admitted to regular nursing floor consultation placed to Dr. Winston with podiatry who did perform incision and drainage. Cultures obtained have so far remained negative to date. Plan is for patient to be transferred to a halfway facility pending bed availability 1. Infected right foot hematoma status post incision and drainage on 05/05/2018. Patient initially managed with Zosyn switched to Augmentin. Cultures have remained negative to date 2. 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 Diabetes mellitus type II: patient's oral hypoglycemics held. Placed on Accu-Cheks a.c. and at bedtime and covered with sliding scale insulin 4. Hypertension-blood pressure controlled, home medications continued with dose adjustment as needed 5. Hypothyroidism-patient is on levothyroxine home dose continued 6. History of metastatic breast CA currently on anastrozole; continued 7. Anemia secondary to anemia of chronic disorder monitoring H&H 8. Left knee pain imaging studies demonstrated no acute fracture left knee arthrocentesis performed did not reveal any evidence of septic arthritis 9. Dyslipidemia-patient is on statin therapy, continued at home dose 10. DVT prophylaxis on Coumadin Code Visit Inpatient E&M: 70812 [facility] Hosp L2
--- NOTE | 2018-05-09 08:36 | PCM.DC.SUM ---
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, left (Chronic) Obesity (Chronic) Osteoarthritis (Chronic) Hyperlipidemia (Chronic) Hypertension (Chronic) Diabetes mellitus type 2 in obese (Chronic) Pulmonary embolism (Chronic) Metastatic breast cancer (Chronic) Restless leg syndrome (Chronic) Hypercoagulable state (Chronic) Hypothyroidism (Chronic) Obstructive sleep apnea (Chronic) History of pulmonary embolism (Chronic) Hospital Course and Treatment Consultations 05/07/18 17:51 Consult: Onc/Wound/client server developer Routine Comment: Reason for Consult:: right dorsal foot wound s/p hematoma I+D on 05/05/18 Comments:: have been using 1/4in Iodoform packing to site Operations: None, total hip replacement, - Summary of Care Provided: Patient is a 77-year-old lady who presented with an infected right foot hematoma. Patient admitted to regular nursing floor consultation placed to Dr. Winston with podiatry who did perform incision and drainage. 1. Infected right foot hematoma status post incision and drainage on 05/05/2018. Patient initially managed with Zosyn switched to Augmentin patient written for 5 more days following discharge 2. 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 Diabetes mellitus type II: patient's oral hypoglycemics held. Placed on Accu-Cheks a.c. and at bedtime and covered with sliding scale insulin 4. Hypertension-blood pressure controlled, home medications continued with dose adjustment as needed 5. Hypothyroidism-patient is on levothyroxine home dose continued 6. History of metastatic breast CA currently on anastrozole; continued 7. Anemia secondary to anemia of chronic disorder monitoring H&H 8. Left knee pain imaging studies demonstrated no acute fracture left knee arthrocentesis performed did not reveal any evidence of septic arthritis 9. Dyslipidemia-patient is on statin therapy, continued at home dose 10. DVT prophylaxis on Coumadin 11. Physical deconditioning patient was transferred to a snf facility Objective: GENERAL: cooperative HEENT: Atraumatic; moist oral mucosa EYES; Anicteric, Normal Conjunctiva NECK; supple, normal thyroid, no distended JVD. RESPIRATORY: Diminished to auscultation bilaterally, CARDIOVASCULAR: Regular S1 S2, no audible murmurs GI: soft, non-tender, normoactive bowel sounds, : No Renal angle tenderness; EXTREMITIES: On the dorsal surface of the right foot clean dry and intact MUSCULOSKELETAL: No Joint Tenderness; NEURO: Awake; no lateralizing signs. PSYCH; Normal affect - Physical Exam Vital Signs Temp Pulse Resp BP Pulse Ox 98.4 F 89 18 140/81 H 95 05/09/18 03:04 05/09/18 06:38 05/09/18 06:38 05/09/18 03:04 05/09/18 06:38 Oxygen Delivery Method Room Air Weight: 123.4 kg Body Mass Index (BMI) 45.2 Finger Stick Blood Glucose 155 Intake and Output for Last 24 Hours 05/07/18 05/08/18 05/09/18 23:59 23:59 23:59 Intake Total 3199.5 / 3199.5 1580 / 1580 500 / 500 Output Total 3700 / 3700 2775 / 2775 1865 / 1865 Balance -500.5 / -500.5 -1195 / -1195 -1365 / -1365 Microbiology Past 72 Hours 05/05/18 15:00 Gram Stain - Final Wound Drainage - Other Wound Culture - Final No growth aerobically. Anaerobic Culture - Preliminary No growth in 48 hours. 05/06/18 09:55 Gram Stain - Final Fluid - Synovial (joint) Body Fluid Culture - Preliminary No growth-Final to follow Anaerobic Culture - Preliminary No growth in 48 hours. 05/04/18 14:23 Blood Culture - Preliminary Blood Culture (Wb) - Right Hand No growth in 48 hours. 05/04/18 14:20 Blood Culture - Preliminary Blood Culture (Wb) - Anticubital Right No growth in 48 hours. Laboratory Tests Past 24 Hrs 05/06/18 05/09/18 05/09/18 09:55 05:02 05:02 WBC 7.6 RBC 3.89 L Hgb 10.7 L Hct 35.8 L MCV 92.0 MCH 27.5 MCHC 29.9 L RDW 15.4 H RDW Differential 50.3 H Plt Count 570 H MPV 8.3 Sodium 139 Potassium 4.0 Chloride 102 Carbon Dioxide 26.0 Anion Gap 11 BUN 20 H Creatinine 1.37 H Estim Creat Clear Calc 31.93 Est GFR (MDRD) Af Amer 48 L Est GFR (MDRD) Non-Af 40 L BUN/Creatinine Ratio 14.6 Glucose 138 H Calcium 9.4 Magnesium 2.1 Fl Pathologist Comment Reviewed POC Glucose 05/09/18 05/08/18 05/08/18 06:40 23:16 16:27 POC Glucose 128 H 102 167 H 05/08/18 11:33 POC Glucose 195 H Discharge Diet: 1800 Calorie Control Diet Discharge Activity: Return to Normal Activity Home Medications: Medications to take at Discharge Levothyroxine [Synthroid] 112 mcg PO DAILY 01/24/14 Simvastatin [Zocor] 40 mg PO QHS 01/24/14 Anastrozole [Arimidex] 1 mg PO DAILY 03/17/15 Spironolactone [Aldactone] 25 mg PO DAILY #30 tablet 07/08/15 traZODone [Desyrel] 150 mg PO QHS 05/07/16 Clonazepam [Klonopin] 1 mg PO DAILY PRN PRN #30 tablet 06/09/16 Bupropion HCl [Bupropion Xl] 150 mg PO DAILY 04/22/18 Prednisone 2.5 mg PO QODAY 04/22/18 Acetaminophen/Diphenhydramine [Tylenol Pm Ex-Strength Caplet] 2 tab PO PRN PRN 05/04/18 Budesonide 2 ml INHALATION BID 05/04/18 Fluticasone Furoate [Arnuity Ellipta] 1 puff INHALATION DAILY 05/04/18 Furosemide [Lasix] 20 mg PO DAILY 05/04/18 Warfarin Sodium 1.5 mg PO MOFR 05/04/18 Warfarin Sodium 3 mg PO SUTUWETHSA 05/04/18 Acetaminophen [Tylenol Tablet] 650 mg PO Q6H PRN PRN tablet 05/09/18 Amox/Clavulanate Tablet [Augmentin Tablet] 875 mg PO BID #10 tab 05/09/18 Glucagon 1 mg IM .X1 PRN syringe 05/09/18 Insulin Lispro [Humalog KwikPen] See Protocol SQ ACHS insuln.pen 05/09/18 Ipratropium/Albuterol Sulfate [Duoneb] 3 ml INHALATION Q6H.RT ampul.neb 05/09/18 Magnesium Hydroxide [Milk Of Magnesia] 30 ml PO DAILY PRN PRN udc 05/09/18 Nystatin Powder [Mycostatin Powder] 1 applic TOPICAL BID bottle 05/09/18 traMADol [Ultram] 50 mg PO Q6H PRN PRN 3 Days #14 tab 05/09/18 Following Prescrptions Were Given to Patient: Amox/Clavulanate Tablet [Augmentin Tablet] 875 mg PO BID #10 tab traMADol [Ultram] 50 mg PO Q6H PRN PRN 3 Days #14 tab PRN Reason: Pain Primary Care Physician: Ai Anguiano MD [Primary Care Provider] - Please Follow Up With: Paolo Winston DPM When: in 3-5 days Disposition: Group Home facility Minutes spent on discharge:: 35 Patient Condition:: Stable Medical Necessity - Tobacco Use Smoking Status: Never smoker Meaningful Use Info Meaningful Use Diagnoses (Choose all that apply): None applicable Code Visit Inpatient E&M: 37434 [facility] H[facility]
[2018-05-09 09:51] VITALS: BP 113/77; PULSE 97; RESP 18; TEMP 36.7; O2SAT 97
[2018-05-09] MEDS: buPROPion (XL) 150 MG TABLET.XL PO (09:53)
[2018-05-09] MEDS: Spironolactone 25 MG Tablet PO (09:53)
[2018-05-09] MEDS: Furosemide 20 MG Tablet PO (09:53)
[2018-05-09] MEDS: Amox/Clavulanate 875 MG Tablet PO ×2 (09:54→21:30)
[2018-05-09] MEDS: Nystatin Powder 15gm Bottle 1 APPLIC TOPICAL ×2 (09:54→21:31)
[2018-05-09] MEDS: Anastrozole 1 MG Tablet PO (09:54)
[2018-05-09 10:54] LABS: International Normalized Ratio 1.4; Prothrombin Time (Protime)PT. 17.4 SECONDS (11.7-14.9)
[2018-05-09] MEDS: Insulin Lispro 100 UNIT/ML INSULN.PEN SQ ×2 (11:52→21:37)
[2018-05-09 12:06] LABS: Bedside Glucose 188 mg/dL (70-110)
--- NOTE | 2018-05-09 12:48 | CHAPLAIN ---
Type of Pastoral Visit ___ Initial Visit ___ Follow-up Visit ___ On-call Visit _x__ General Patient Visit ___ Spiritual Assessment ___ Family Conference ___ Bereavement ___ Rapid Response ___ Code Blue ___ Other (describe below) Pastoral Care Referral From _x__ Patient ___ Family ___ Nurse ___ Physician ___ Polysomnograph Tech ___ Patent Prosecution Paralegal ___ Other (describe below) Sacrament/Intervention _x__ Active listening ___ Anointing ___ Zoroastrian ___ Bereavement ___ Communion ___ Daya exploration ___ ___ Life review ___ Prayer ___ Reconciliation ___ Sacrament of Sick ___ Supportive presence ___ Wedding ___ Other (describe below) Pastoral Comments
[2018-05-09 14:31] VITALS: BP 128/72; PULSE 92; RESP 16; TEMP 36.3; O2SAT 95
--- NOTE | 2018-05-09 15:17 | CASEMGMT ---
Social Work Note SW updated pt and pt's that TCU has a bed for pt and that this worker is waiting to hear from pt's insurance. SW informed pt and pt's that [employer] has been taking slow to get back to [facility] and this worker is unsure when they will give [facility] an answer. SW explained that bed on TCU is being held for pt until [employer] provides pre-cert to [facility]. Pt and pt's state understanding. Leeanne Holman POLYMER TESTER, [employer] DEAN
--- NOTE | 2018-05-09 16:06 | PN_ITS ---
Subjective: This 77-year-old female with multiple comorbidities was seen bedside this evening for right foot incision and drainage of an infected hematoma. She denies pain, fever, chill, nausea, vomiting, loss of appetite, chest pain, shortness of breath. She is waiting for transitional care unit transfer pending insurance approval. Her is bedside. - Physical Exam General: Alert, Oriented x3, Cooperative HEENT: Atraumatic Extremities: Capillary Refill Less than 3 Seconds - All digits right foot, No Calf Tenderness - negative Stevie and West sign right, Diminished Peripheral Pulses, Edema - Right lower extremity Skin: Ulcer/ Wound - Incision and drainage site dorsal right foot has iodoform packing gauze in place. There is mild serosanguineous drainage only. There is no purulence on expression, eschar, devitalized tissue, maceration, odor, or redness., - - The peripheral skin is atrophic Musculoskeletal: No Tenderness to Palpation of Joints or Extremities, Muscle Wasting, - - No pain with procedure site manipulation. There is no fluctuance or bogginess on palpation. The compartments of the right lower extremity remains soft. Neurological: - - Right lower extremityLack of normal epicritic sensation light touch Psych/Mental Status: Normal Affect, Appropriate Vital Signs Temp Pulse Resp BP Pulse Ox 97.4 F L 92 16 128/72 H 95 05/09/18 14:31 05/09/18 14:31 05/09/18 14:31 05/09/18 14:31 05/09/18 14:31 Oxygen Delivery Method Room Air Weight: 123.4 kg Body Mass Index (BMI) 45.2 Finger Stick Blood Glucose 155 Intake and Output for Last 24 Hours 05/07/18 05/08/18 05/09/18 23:59 23:59 23:59 Intake Total 3199.5 / 3199.5 1580 / 1580 860 / 860 Output Total 3700 / 3700 2775 / 2775 2765 / 2765 Balance -500.5 / -500.5 -1195 / -1195 -1905 / -1905 Microbiology Past 72 Hours 05/04/18 14:23 Blood Culture - Final Blood Culture (Wb) - Right Hand No growth in 5 days. 05/04/18 14:20 Blood Culture - Final Blood Culture (Wb) - Anticubital Right No growth in 5 days. 05/05/18 15:00 Gram Stain - Final Wound Drainage - Other Wound Culture - Final No growth aerobically. Anaerobic Culture - Preliminary No growth in 48 hours. 05/06/18 09:55 Gram Stain - Final Fluid - Synovial (joint) Body Fluid Culture - Preliminary No growth-Final to follow Anaerobic Culture - Preliminary No growth in 48 hours. Laboratory Tests Past 24 Hrs 05/09/18 05/09/18 05/09/18 05:02 05:02 10:30 WBC 7.6 RBC 3.89 L Hgb 10.7 L Hct 35.8 L MCV 92.0 MCH 27.5 MCHC 29.9 L RDW 15.4 H RDW Differential 50.3 H Plt Count 570 H MPV 8.3 PT 17.4 H INR 1.4 Sodium 139 Potassium 4.0 Chloride 102 Carbon Dioxide 26.0 Anion Gap 11 BUN 20 H Creatinine 1.37 H Estim Creat Clear Calc 31.93 Est GFR (MDRD) Af Amer 48 L Est GFR (MDRD) Non-Af 40 L BUN/Creatinine Ratio 14.6 Glucose 138 H Calcium 9.4 Magnesium 2.1 POC Glucose 05/09/18 05/09/18 05/08/18 11:49 06:40 23:16 POC Glucose 188 H 128 H 102 05/08/18 16:27 POC Glucose 167 H Medical Necessity - Tobacco Use Smoking Status: Never smoker Assessment/Plan Contusion with hematoma formation dorsal right foot w/ associated cellulitis s/p I+D on 05/05/18 - doing well Cellulitis left leg - resolved Diabetes There has been continued improvement to the right foot with I+D procedure from 05/05/18, patient afebrile, no leukocytosis, patient with no pain to the foot. Continue with daily dressing changes, 1/4 inch Iodoform gauze packing and overlying gauze, kerlix and bharath dressing. Ok to proceed with partial weightbearing right foot - put weight on heel with use of surgical shoe and walker. Otherwise keep foot elevated as much as possible, and keep heels offloaded. To continue to use Bharath wraps to control edema. To proceed with nutritional supplementation to optimize healing this order will be confirmed. It is noted that there is still no bacterial growth noted in the intraoperative cultures that were obtained. She was switched to oral antibiotic - Augmentin. She was reassured that her local signs of infection appear to be resolving. Podiatry will continue to follow 1-2 times weekly while in house and while transfered to TCU. The anticipated healing time and management were discussed in detail. Medical management per primary team is appreciated. Please call/page us sooner if needed for questions. Candace Patel DPM, [facility] [phone]
[2018-05-09 16:46] LABS: Bedside Glucose 135 mg/dL (70-110)
--- NOTE | 2018-05-09 18:33 | DCINST_ITS ---
Discharge Diet: 1800 Calorie Control Diet Discharge Activity: Return to Normal Activity, - - heel weight bear right lower extremity with surgical shoe and assistive device Weight Bearing Status: Partial weight bearing Keep extremity elevated above heart level: Right Leg Call your doctor if your incision/area has: Continuous Slow Oozing, Sudden Increased Bleeding, Increased Pain/ Swelling, Increased Redness, Foul Smelling Discharge, Swelling at the incision site Call your doctor if you observe: Fever of 101 or Higher, Calf discomfort, Uncontrolled pain Cleanse incision/area with: - - change daily with iodoform or sterile gauze packing. cover with overlying gauze, kerlix, and rustam wrap Allergies/Adverse Reactions: Allergies acetaminophen [From Vicodin] Allergy (Verified 05/04/18 12:35) Unknown codeine Allergy (Verified 05/04/18 12:35) Unknown hydrocodone bitartrate [From Vicodin] Allergy (Verified 05/04/18 12:35) Unknown Medications to take at Discharge Levothyroxine [Synthroid] 112 mcg PO DAILY 01/24/14 Simvastatin [Zocor] 40 mg PO QHS 01/24/14 Anastrozole [Arimidex] 1 mg PO DAILY 03/17/15 Spironolactone [Aldactone] 25 mg PO DAILY #30 tablet 07/08/15 traZODone [Desyrel] 150 mg PO QHS 05/07/16 Clonazepam [Klonopin] 1 mg PO DAILY PRN PRN #30 tablet 06/09/16 Bupropion HCl [Bupropion Xl] 150 mg PO DAILY 04/22/18 Prednisone 2.5 mg PO QODAY 04/22/18 Acetaminophen/Diphenhydramine [Tylenol Pm Ex-Strength Caplet] 2 tab PO PRN PRN 05/04/18 Budesonide 2 ml INHALATION BID 05/04/18 Fluticasone Furoate [Arnuity Ellipta] 1 puff INHALATION DAILY 05/04/18 Furosemide [Lasix] 20 mg PO DAILY 05/04/18 Warfarin Sodium 1.5 mg PO MOFR 05/04/18 Warfarin Sodium 3 mg PO SUTUWETHSA 05/04/18 Acetaminophen [Tylenol Tablet] 650 mg PO Q6H PRN PRN tablet 05/09/18 Amox/Clavulanate Tablet [Augmentin Tablet] 875 mg PO BID #10 tab 05/09/18 Glucagon 1 mg IM .X1 PRN syringe 05/09/18 Insulin Lispro [Humalog KwikPen] See Protocol SQ ACHS insuln.pen 05/09/18 Ipratropium/Albuterol Sulfate [Duoneb] 3 ml INHALATION Q6H.RT ampul.neb 05/09/18 Magnesium Hydroxide [Milk Of Magnesia] 30 ml PO DAILY PRN PRN udc 05/09/18 Nystatin Powder [Mycostatin Powder] 1 applic TOPICAL BID bottle 05/09/18 traMADol [Ultram] 50 mg PO Q6H PRN PRN 3 Days #14 tab 05/09/18 The following prescriptions were given: traMADol [Ultram] 50 mg PO Q6H PRN PRN 3 Days #14 tab PRN Reason: Pain Amox/Clavulanate Tablet [Augmentin Tablet] 875 mg PO BID #10 tab Primary Care Physician: Ai Anguiano MD [Primary Care Provider] - Test Results: Test results from this visit will be discussed in further detail at your follow- up appointment, if applicable. Please Follow Up With: Paolo Winston DPM When: in 3-5 days . Call [facility] [phone]
[2018-05-09 19:15] VITALS: PULSE 104; RESP 16
[2018-05-09 21:20] VITALS: BP 108/73; PULSE 99; RESP 16; TEMP 36.6; O2SAT 97
[2018-05-09] MEDS: Acetaminophen 325 MG Tablet 650 MG PO (21:30)
[2018-05-09] MEDS: Atorvastatin Calcium 20 MG Tablet PO (21:30)
[2018-05-09] MEDS: traZODone 50 MG Tablet 150 MG PO (21:30)
[2018-05-09 22:36] LABS: Bedside Glucose 177 mg/dL (70-110)
[2018-05-10 03:23] VITALS: BP 135/69; PULSE 92; RESP 16; TEMP 36.4; O2SAT 94
[2018-05-10 06:08] LABS: Mean Corp Hgb Conc 30.3 g/gl (32-36); Mean Corpuscular Hgb 27.7 pg (27.0-32.0); Mean Corpuscular Volume 91.4 fL (81-99); Mean Platelet Vol. 8.3 fl (6.2-12.0); Platelet Count 526 K/mm3 (150-450); RBC Distribution Width CV 15.3 % (11.6-14.6); RBC Distribution Width SD 49.4 fl (35.1-43.9); Red Blood Count 3.61 M/mm3 (4.2-5.4); White Blood Count 8.4 K/mm3 (4.4-11.0)
[2018-05-10 06:28] LABS: Scan Indicated on CBC? Y/N NO
[2018-05-10 06:31] LABS: Anion Gap 11 (5-15); BUN 28 mg/dL (7-18); BUN/Creat Ratio 18.4 RATIO (10-20); Calcium,Total 8.9 mg/dL (8.5-10.1); Chloride 104 mmol/L (98-107); Creatinine, Serum 1.52 mg/dL (0.55-1.02); EST Glomerular Filtration Rate 35 mL/min (>60); Est Glom Filt Rate - Afr Amer 43 mL/min (>60); Estimated Creatinine Clearance 28.78 ml/min; Glucose 156 mg/dL (74-106); Potassium 3.9 mmol/L (3.5-5.1); Sodium Level 139 mmol/L (136-145)
[2018-05-10] MEDS: Levothyroxine 112 MCG Tablet PO (06:32)
[2018-05-10 07:05] VITALS: PULSE 88; RESP 20; O2SAT 92
[2018-05-10] MEDS: Ipratropium/Albuterol Sulfate 3 ML AMPUL.NEB INHALATION (07:05)
[2018-05-10 07:06] LABS: Bedside Glucose 146 mg/dL (70-110)
[2018-05-10] MEDS: Furosemide 20 MG Tablet PO (08:52)
[2018-05-10] MEDS: predniSONE 5 MG Tablet 2.5 MG PO (08:53)
[2018-05-10] MEDS: Amox/Clavulanate 875 MG Tablet PO (08:53)
[2018-05-10] MEDS: Anastrozole 1 MG Tablet PO (08:53)
[2018-05-10] MEDS: buPROPion (XL) 150 MG TABLET.XL PO (08:54)
[2018-05-10] MEDS: Spironolactone 25 MG Tablet PO (08:54)
[2018-05-10] MEDS: Nystatin Powder 15gm Bottle 1 APPLIC TOPICAL (08:54)
[2018-05-10 09:20] VITALS: BP 138/79; PULSE 92; PULSE 94; RESP 18; TEMP 36.3; O2SAT 93
--- NOTE | 2018-05-10 11:26 | PN_ITS ---
Subjective: Since seen had a relatively uneventful night. Awaiting insurance precertification prior to transfer to care home facility. Objective: GENERAL: cooperative HEENT: Atraumatic; moist oral mucosa EYES; Anicteric, Normal Conjunctiva NECK; supple, normal thyroid, no distended JVD. RESPIRATORY: Diminished to auscultation bilaterally, CARDIOVASCULAR: Regular S1 S2, no audible murmurs GI: soft, non-tender, normoactive bowel sounds, : No Renal angle tenderness; EXTREMITIES: On the dorsal surface of the right foot clean dry and intact MUSCULOSKELETAL: No Joint Tenderness; NEURO: Awake; no lateralizing signs. PSYCH; Normal affect Vitals/I&O's: Vital Signs Temp Pulse Resp BP Pulse Ox 97.4 F L 94 18 138/79 H 93 05/10/18 09:20 05/10/18 09:20 05/10/18 09:20 05/10/18 09:20 05/10/18 09:20 Oxygen Delivery Method Room Air Weight: 123.4 kg Body Mass Index (BMI) 45.2 Finger Stick Blood Glucose 155 Intake and Output for Last 24 Hours 05/08/18 05/09/18 05/10/18 23:59 23:59 23:59 Intake Total 1580 / 1580 1340 / 1340 200 / 200 Output Total 2775 / 2775 3165 / 3165 1100 / 1100 Balance -1195 / -1195 -1825 / -1825 -900 / -900 Microbiology Past 72 Hours 05/04/18 14:23 Blood Culture (Wb) - Right Hand Blood Culture - Final No growth in 5 days. 05/04/18 14:20 Blood Culture (Wb) - Anticubital Right Blood Culture - Final No growth in 5 days. 05/05/18 15:00 Wound Drainage - Other Gram Stain - Final 05/05/18 15:00 Wound Drainage - Other Wound Culture - Final No growth aerobically. 05/05/18 15:00 Wound Drainage - Other Anaerobic Culture - Preliminary No growth in 48 hours. 05/06/18 09:55 Fluid - Synovial (joint) Gram Stain - Final 05/06/18 09:55 Fluid - Synovial (joint) Body Fluid Culture - Preliminary No growth-Final to follow 05/06/18 09:55 Fluid - Synovial (joint) Anaerobic Culture - Preliminary No growth in 48 hours. Laboratory Results 05/09/18 11:49: POC Glucose 188 H 05/09/18 16:20: POC Glucose 135 H 05/09/18 21:36: POC Glucose 177 H 05/10/18 05:32: WBC 8.4, RBC 3.61 L, Hgb 10.0 L, Hct 33.0 L, MCV 91.4, MCH 27.7, MCHC 30.3 L, RDW 15.3 H, RDW Differential 49.4 H, Plt Count 526 H, MPV 8.3 05/10/18 05:32: Sodium 139, Potassium 3.9, Chloride 104, Carbon Dioxide 24.0, Anion Gap 11, BUN 28 H, Creatinine 1.52 H, Estim Creat Clear Calc 28.78, Est GFR (MDRD) Af Amer 43 L, Est GFR (MDRD) Non-Af 35 L, BUN/Creatinine Ratio 18.4, Glucose 156 H, Calcium 8.9 05/10/18 06:38: POC Glucose 146 H Current Medications Acetaminophen (Tylenol) 650 mg PO Q6H PRN PRN PRN Reason: Mild Pain (scale 0-3)/T>100.7 Last Admin: 05/09/18 21:30 Dose: 650 mg Albuterol/Ipratropium (Duoneb) 3 ml INHALATION Q6H.RT [facility] Last Admin: 05/10/18 07:05 Dose: 3 ml Anastrozole (Arimidex) 1 mg PO DAILY [facility] Last Admin: 05/10/18 08:53 Dose: 1 mg Atorvastatin Calcium (Lipitor) 20 mg PO QHS [facility] Last Admin: 05/09/18 21:30 Dose: 20 mg Bupropion HCl (Wellbutrin Xl) 150 mg PO DAILY [facility] Last Admin: 05/10/18 08:54 Dose: 150 mg Clonazepam (Klonopin) 1 mg PO DAILY PRN PRN PRN Reason: restless leg syndrome Last Admin: 05/08/18 20:05 Dose: 1 mg Dextrose (D50w Syringe) 0 gm IV X1 PRN; Protocol PRN Reason: Hypoglycemia Furosemide (Lasix) 20 mg PO DAILY [facility] Last Admin: 05/10/18 08:52 Dose: 20 mg Glucagon () 1 mg IM .X1 PRN PRN Reason: Hypoglycemia Insulin Human Lispro (Humalog Kwikpen (Bkc)) 0 unit SQ ACHS [facility]; Protocol Last Admin: 05/10/18 06:39 Dose: Not Given Levothyroxine Sodium (Synthroid) 112 mcg PO DAILY@0600 [facility] Last Admin: 05/10/18 06:32 Dose: 112 mcg Magnesium Hydroxide (Milk Of Magnesia) 30 ml PO DAILY PRN PRN PRN Reason: Constipation Morphine Sulfate () 1 mg IV Q4H PRN PRN PRN Reason: SEVERE PAIN (6-10/10) Last Admin: 05/05/18 09:32 Dose: 1 mg Nutritional Formula ([facility] - [place] Fl[facility]) [facility] Last Admin: 05/10/18 09:06 Dose: 1 packet Nystatin (Mycostatin Powder) 1 applic TOPICAL BID [facility]; Protocol Last Admin: 05/10/18 08:54 Dose: 1 applicatio Ondansetron HCl (Zofran) 4 mg IV Q8H PRN PRN PRN Reason: Nausea Oxycodone HCl (Oxyir) 5 mg PO Q4H PRN PRN PRN Reason: Moderate Pain (pain scale 4-5) Last Admin: 05/05/18 18:00 Dose: 5 mg Prednisone () 2.5 mg PO QODAY@0800 [facility] Last Admin: 05/10/18 08:53 Dose: 2.5 mg Sodium Chloride () 5 - 15 ml IV UD PRN PRN Reason: SALINE FLUSH [facility] Last Admin: 05/10/18 08:54 Dose: 25 mg Tramadol HCl (Ultram) 50 mg PO Q6H PRN PRN PRN Reason: PAIN Trazodone HCl (Desyrel) 150 mg PO QHS [facility] Last Admin: 05/09/18 21:30 Dose: 150 mg Warfarin Sodium (Coumadin (Pbkc)) 3 mg PO SuTuWeThSa@1700 [facility] Last Admin: 05/09/18 16:31 Dose: 3 mg Warfarin Sodium (Coumadin (Pbkc)) 1.5 mg PO MoFr@1700 [facility] Last Admin: 05/08/18 17:26 Dose: 1.5 mg Medical Necessity - Tobacco Use Smoking Status: Never smoker Assessment/Plan Patient is a 77-year-old lady who presented with an infected right foot hematoma. Patient admitted to regular nursing floor consultation placed to Dr. Winston with podiatry who did perform incision and drainage. Cultures obtained have so far remained negative to date. Plan is for patient to be transferred to a care home facility pending bed availability 1. Infected right foot hematoma status post incision and drainage on 05/05/2018. Patient initially managed with Zosyn switched to Augmentin. Cultures have remained negative to date awaiting insurance precertification prior to transfer to care home facility 2. 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 Diabetes mellitus type II: patient's oral hypoglycemics held. Placed on Accu-Cheks a.c. and at bedtime and covered with sliding scale insulin 4. Hypertension-blood pressure controlled, home medications continued with dose adjustment as needed 5. Hypothyroidism-patient is on levothyroxine home dose continued 6. History of metastatic breast CA currently on anastrozole; continued 7. Anemia secondary to anemia of chronic disorder monitoring H&H 8. Left knee pain imaging studies demonstrated no acute fracture left knee arthrocentesis performed did not reveal any evidence of septic arthritis 9. Dyslipidemia-patient is on statin therapy, continued at home dose 10. DVT prophylaxis on Coumadin 11. Physical deconditioning PT OT as tolerated with plans for patient to be transferred to the transitional care unit once insurance preset occasions obtained. Code Visit Inpatient E&M: 64221 Subs Hosp L2
[2018-05-10] MEDS: Insulin Lispro 100 UNIT/ML INSULN.PEN SQ (12:14)
[2018-05-10 12:21] LABS: Bedside Glucose 155 mg/dL (70-110)
--- NOTE | 2018-05-10 13:07 | CASEMGMT ---
Social Work Note BYRON received call from Telma in TCU stating pre-cert has been obtained and pt is able to discharge today. Physician updated. BYRON updated pt and pt's on approval and discharge to TCU today. Plan: TCU today Leeanne Holman CIRCUIT BOARD INSPECTOR, [employer] AND MATERIAL CUTTER
--- NOTE | 2018-05-10 13:54 | NURSING ---
attempted to call report to tcu. staff unable to come to phone, took extension # to call back
[2018-05-10 14:10] VITALS: BP 120/86; PULSE 84; RESP 15; TEMP 37.1; O2SAT 83
--- NOTE | 2018-05-10 14:29 | NURSING ---
student nurse's charting reviewed for learning purposes.
== END 2018-05-10 14:36 | disposition skilled nursing facility (03) | DRG 605 ==
LOC: ED 17:23 → MS3 17:58
PROVIDERS: Podiatrist; Specialist; Admitting Provider Hospitalist; Emergency Provider Emergency Medicine; Family Provider Internal Medicine; PCP Internal Medicine; Visit Provider Internal Medicine
PROC: 0JCQ0ZZ Extirpation of Matter from Right Foot Subcutaneous Tissue and Fascia, Open Approach (ICD-10-PCS; principal; 2018-05-05 14:15)
DX: S90.31XA Contusion of right foot, initial encounter (principal); L03.116 Cellulitis of left lower limb; C79.9 Secondary malignant neoplasm of unspecified site; Z68.42 Body mass index [BMI] 45.0-49.9, adult; L03.115 Cellulitis of right lower limb; X58.XXXA Exposure to other specified factors, initial encounter; Z96.653 Presence of artificial knee joint, bilateral; Z96.643 Presence of artificial hip joint, bilateral; M25.562 Pain in left knee; E78.5 Hyperlipidemia, unspecified; E03.9 Hypothyroidism, unspecified; G25.81 Restless legs syndrome; C50.919 Malignant neoplasm of unspecified site of unspecified female breast; G47.33 Obstructive sleep apnea (adult) (pediatric); E11.9 Type 2 diabetes mellitus without complications; D63.8 Anemia in other chronic diseases classified elsewhere; E66.01 Morbid (severe) obesity due to excess calories; Z86.711 Personal history of pulmonary embolism; Z79.811 Long term (current) use of aromatase inhibitors; Z79.01 Long term (current) use of anticoagulants; Z79.899 Other long term (current) drug therapy; Z86.718 Personal history of other venous thrombosis and embolism
CPT/HCPCS: 36415; 71045; 73552; 73562; 73630; 73700; 74018; 80048; 81001; 82962; 83735; 85014; 85018; 85025; 85027; 85610; 85652; 85730; 86140; 87040; 87070; 87075; 87086; 87088; 87205; 87641; 88304; 89050; 93005; 94640; 97110; 97161; 97166; 97530; 99283; J7030; A4216

== ENCOUNTER 2018-05-10 14:59 | Inpatient (IN) | payer MEDICARE, SELFPAY ==
[2018-05-05 07:26] VITALS: BMI 45.2
[2018-05-10 15:07] VITALS: BP 149/74; PULSE 103; RESP 18; TEMP 36; O2SAT 94
--- NOTE | 2018-05-10 15:07 | NURSING ---
PT ARRIVED VIA BED FROM [facility] AT 1500
[2018-05-10 15:41] VITALS: BMI 43.8
[2018-05-10 15:56] VITALS: BMI 43.8
[2018-05-10 17:06] LABS: Bedside Glucose 133 mg/dL (70-110)
[2018-05-10] MEDS: Amox/Clavulanate 875 MG Tablet PO (18:17)
[2018-05-10] MEDS: Nystatin Powder 15gm Bottle 1 APPLIC TOPICAL (18:19)
[2018-05-10] MEDS: Atorvastatin Calcium 20 MG Tablet PO (19:47)
[2018-05-10] MEDS: traZODone 50 MG Tablet 150 MG PO (19:48)
[2018-05-10] MEDS: Menthol/Lanolin/Calamine/Znox 113 GM Tube 1 APPLIC TOPICAL (19:53)
--- NOTE | 2018-05-10 20:39 | PCM.HP.STD ---
Problem List (1) Cellulitis of right lower extremity Status: Acute (2) Traumatic hematoma of right foot Status: Acute (3) Left ureteral stone Status: Acute (4) Diabetes mellitus Status: Chronic (5) Insomnia Status: Chronic (6) Anxiety Status: Chronic (7) Depression Status: Chronic (8) Chronic obstructive pulmonary disease Status: Chronic (9) Osteoarthritis Status: Chronic (10) Hyperlipidemia Status: Chronic (11) Hypertension Status: Chronic (12) Pulmonary embolism Status: Chronic (13) Metastatic breast cancer Status: Chronic (14) Restless leg syndrome Status: Chronic (15) Hypothyroidism Status: Chronic History of Present Illness Date of Admission: 05/10/18 Chief Complaint: Here for rehabilitation, strengthening, wound care, prior to discharge home with spouse. The patient is a 77 year old Female with below past medical history presented to [facility] Emergency Department with right lower extremity cellulitis. 05/04/2018 KUB left ureter stent. 05/04/2018 X-ray right foot diffuse soft tissue swelling. Sent for right lower extremity cellulitis. Closed car door on right foot earlier in week, patient on coumadin. Hemoglobin 9.8, Platelet 452, Sodium 134, Glucose 112. BUN 22, Cr 1.53, INR 2.9, Cultures sent. Hematoma on coumadin. Cefazolin IV given. 05/04/[address] right foot to evaluate for hematoma. Pain control. IV fluids. Hold coumadin in case of surgery. 05/04/2018 CT right foot showed hematoma. 05/05/2018 Chest X-ray showed medial right lung base volume loss. 05/05/2018 X-ray left knee showed left total knee arthroplasty, ? displaced tibial prosthesis. 05/05/2018 Dr. Winston performed incision and drainage infected hematoma right foot. 05/06/2018 X-ray left femur status post revision left total knee arthroplasty following distal femur fracture. 05/06/2018 Dr. Martinez performed aspiration left knee to rule out infection. Left knee arthrocentesis ruled out infection. Zosyn switched to Augmentin for infected right foot hematoma. Hematoma cultures negative to date. Coumadin resumed for DVT/PE. 05/10/2018 Admit to TCU with debility, here for rehabilitation, strengthening, wound care, prior to discharge home with spouse. 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, left (Chronic) Obesity (Chronic) Osteoarthritis (Chronic) Hyperlipidemia (Chronic) Hypertension (Chronic) Diabetes mellitus type 2 in obese (Chronic) Pulmonary embolism (Chronic) Metastatic breast cancer (Chronic) Restless leg syndrome (Chronic) Hypercoagulable state (Chronic) Hypothyroidism (Chronic) Obstructive sleep apnea (Chronic) History of pulmonary embolism (Chronic) Allergies acetaminophen [From Vicodin] Allergy (Verified 05/04/18 12:35) Unknown codeine Allergy (Verified 05/04/18 12:35) Unknown hydrocodone bitartrate [From Vicodin] Allergy (Verified 05/04/18 12:35) Unknown Home Medications: Ambulatory Orders Medication Instructions Recorded Levothyroxine [Synthroid] 112 mcg PO DAILY 01/24/14 Simvastatin [Zocor] 40 mg PO QHS 01/24/14 Anastrozole [Arimidex] 1 mg PO DAILY 03/17/15 traZODone [Desyrel] 150 mg PO QHS 05/07/16 Clonazepam [Klonopin] 1 mg PO DAILY PRN PRN #30 tablet 06/09/16 Bupropion HCl [Bupropion Xl] 150 mg PO DAILY 04/22/18 Prednisone 2.5 mg PO QODAY 04/22/18 Budesonide 2 ml INHALATION BID 05/04/18 Fluticasone Furoate [Arnuity 1 puff INHALATION DAILY 05/04/18 Ellipta] Furosemide [Lasix] 20 mg PO DAILY 05/04/18 Warfarin Sodium 1.5 mg PO MOFR 05/04/18 Warfarin Sodium 3 mg PO SUTUWETHSA 05/04/18 Acetaminophen [Tylenol Tablet] 650 mg PO Q6H PRN PRN tablet 05/09/18 Glucagon 1 mg IM .X1 PRN syringe 05/09/18 Magnesium Hydroxide [Milk Of 30 ml PO DAILY PRN PRN udc 05/09/18 Magnesia] traMADol [Ultram] 50 mg PO Q6H PRN PRN 3 Days #14 tab 05/09/18 Amox/Clavulanate Tablet [Augmentin 875 mg PO BID 05/10/18 Tablet] Insulin Lispro [Humalog KwikPen] See Protocol SQ ACHS 05/10/18 Ipratropium/Albuterol Sulfate 3 ml INHALATION Q6H.RT 05/10/18 [Duoneb] Nystatin Powder [Mycostatin Powder] 1 applic TOPICAL BID 05/10/18 Spironolactone [Aldactone] 25 mg PO DAILY 05/10/18 Surgical History: cholecystectomy, total hip arthroplasty - Bilateral., total knee arthroplasty - Bilateral., tonsillectomy, - - ORIF right ankle fracture, Tubal ligation. 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 Lives: Spouse/ Significant Other Smoking Status: Never smoker Tobacco Use: Non-smoker Alcohol: None Drugs: None - *Family History Maternal History Items: No pertinent history Paternal History Items: Heart Disease Review of Systems Constitutional: Denies: Chills, Fever, Weight Change HEENT: Denies: Head Aches, Sinus Congestion, Sinus Drainage Cardiovascular: Denies: Chest Pain, Palpitations Respiratory: Denies: Cough, Shortness of breath at rest, Sputum production Gastrointestinal: Denies: Abdominal Pain, Nausea, Vomiting Genitourinary: Denies: Dysuria Musculoskeletal: Denies: Joint Pain, Joint Tenderness Skin: Denies: Rash, Wounds Neurological: Denies: Numbness, Tingling, Focal weakness Psychiatric: Denies: Anxiety, Depression, Homicidal Ideations, Suicidal Ideations Hematologic/ Lymphatic: Denies: Easy Bruising, Easy Bleeding VTE Information - Inpt Only VTE Present on Admission: No VTE Mechan Device Prophylaxis: Knee High JOANNA Hose VTE Pharm Prophylaxis ordered?: No Reason prophylaxis not ordered:: Treatment Not Indicated Patient Problems: Active and Suspected Problems Cellulitis of right lower extremity (Acute) Traumatic hematoma of right foot (Acute) Left ureteral stone (Acute) - Physical Exam General: Alert, Oriented x3, Cooperative HEENT: Atraumatic, PERRLA, EOMI, Normocephalic Neck: Supple, No JVD, Negative Carotid Bruits Lungs: Clear to auscultation, Normal air movement Cardiovascular: Regular rate, No murmurs Abdomen: Bowel Sounds Present, Soft, Non Tender Extremities: No edema, Capillary Refill Less than 3 Seconds, - - Right lower extremity dressed with compressive dressing. Skin: No rashes, No breakdown Musculoskeletal: No Tenderness to Palpation of Joints or Extremities Neurological: Cranial nerves II-XII grossly intact Psych/Mental Status: Normal Affect, Appropriate Vital Signs Temp Pulse Resp BP Pulse Ox 96.8 F L 103 H 18 149/74 H 94 05/10/18 15:07 05/10/18 15:07 05/10/18 15:07 05/10/18 15:07 05/10/18 15:07 Oxygen Flow Rate (L/min) 3 Oxygen Delivery Method Room Air Weight: 119.5 kg Body Mass Index (BMI) 43.8 Finger Stick Blood Glucose 155 Intake and Output for Last 24 Hours 05/08/18 05/09/18 05/10/18 23:59 23:59 23:59 Intake Total 240 / 240 Balance 240 / 240 POC Glucose 05/10/18 17:00 POC Glucose 133 H Assessment/Plan All Active Problems Cellulitis of right lower extremity (Acute) Traumatic hematoma of right foot (Acute) Left ureteral stone (Acute) 77 year old female with below past medical history hospitalized for infected right foot hematoma requiring incision and drainage 05/05/[address] Winston, complicated by left knee pain, ruled out for septic prosthetic knee by Dr. Martinez, complicated by recent left ureteral stent placement for left kidney stone, admitted to TCU with debility, here for rehabilitation, strengthening, wound care, prior to discharge home with spouse. Debility - PT/OT. Pain - Tylenol 1000MG Q6H PRN mild pain, Tramadol 50MG Q6H PRN moderate pain. Bowel - Miralax 17GM daily, Senna/colace 1 tablet BID, Dulcolax 10MG PO daily PRN. Pneumonia vaccination - Administer Prevnar 13 and/or Pneumovax 23 as necessary. DVT prophylaxis - Not necessary, already on warfarin. Infected right foot hematoma - Augmentin 875MG BID thru 05/20/2018. Metastatic breast cancer - Arimidex 1MG daily. Hyperlipidemia - Atorvastatin 20MG QHS, consider high intensity statin Atorvastatin 40MG QHS. 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 Asthma - Flovent 250MCG 1 puff BID, Duoneb 3ML Q6H, Prednisone 2.5MG every other day. Edema - Lasix 20MG daily, Aldactone 25MG daily. Diabetes Mellitus II - Glucagon 1MG IM PRN hypoglycemia, stop Humalog SSI, monitor glucose for now. Hypothyroidism - Levothyroxine 112MCG daily. Skin irritation - Calmoseptine BID buttocks. Tinea Corporis - Nystatin powder BID groin, abdominal folds. Insomnia - Trazodone 150MG QHS, resident doing well with chronic custodial use, GDR clinically contraindicated. DVT/PE - Warfarin 3MG 5 days/week, 1.5MG 2 days/week, monitor INR.
--- NOTE | 2018-05-10 20:48 | HP.PCM_ITS ---
Problem List (1) Cellulitis of right lower extremity Status: Acute (2) Traumatic hematoma of right foot Status: Acute (3) Left ureteral stone Status: Acute (4) Diabetes mellitus Status: Chronic (5) Insomnia Status: Chronic (6) Anxiety Status: Chronic (7) Depression Status: Chronic (8) Chronic obstructive pulmonary disease Status: Chronic (9) Osteoarthritis Status: Chronic (10) Hyperlipidemia Status: Chronic (11) Hypertension Status: Chronic (12) Pulmonary embolism Status: Chronic (13) Metastatic breast cancer Status: Chronic (14) Restless leg syndrome Status: Chronic (15) Hypothyroidism Status: Chronic History of Present Illness Date of Admission: 05/10/18 Chief Complaint: Here for rehabilitation, strengthening, wound care, prior to discharge home with spouse. The patient is a 77 year old Female with below past medical history presented to [facility] Emergency Department with right lower extremity cellulitis. 05/04/2018 KUB left ureter stent. 05/04/2018 X-ray right foot diffuse soft tissue swelling. Sent for right lower extremity cellulitis. Closed car door on right foot earlier in week, patient on coumadin. Hemoglobin 9.8, Platelet 452, Sodium 134, Glucose 112. BUN 22, Cr 1.53, INR 2.9, Cultures sent. Hematoma on coumadin. Cefazolin IV given. 05/04/[address] CT right foot to evaluate for hematoma. Pain control. IV fluids. Hold coumadin in case of surgery. 05/04/2018 CT right foot showed hematoma. 05/05/2018 Chest X-ray showed medial right lung base volume loss. 05/05/2018 X-ray left knee showed left total knee arthroplasty, ? displaced tibial prosthesis. 05/05/2018 Dr. Winston performed incision and drainage infected hematoma right foot. 05/06/2018 X-ray left femur status post revision left total knee arthroplasty following distal femur fracture. 05/06/2018 Dr. Martinez performed aspiration left knee to rule out infection. Left knee arthrocentesis ruled out infection. Zosyn switched to Augmentin for infected right foot hematoma. Hematoma cultures negative to date. Coumadin resumed for DVT/PE. 05/10/2018 Admit to TCU with debility, here for rehabilitation, strengthening, wound care, prior to discharge home with spouse. 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, left (Chronic) Obesity (Chronic) Osteoarthritis (Chronic) Hyperlipidemia (Chronic) Hypertension (Chronic) Diabetes mellitus type 2 in obese (Chronic) Pulmonary embolism (Chronic) Metastatic breast cancer (Chronic) Restless leg syndrome (Chronic) Hypercoagulable state (Chronic) Hypothyroidism (Chronic) Obstructive sleep apnea (Chronic) History of pulmonary embolism (Chronic) Allergies acetaminophen [From Vicodin] Allergy (Verified 05/04/18 12:35) Unknown codeine Allergy (Verified 05/04/18 12:35) Unknown hydrocodone bitartrate [From Vicodin] Allergy (Verified 05/04/18 12:35) Unknown Home Medications: Ambulatory Orders Medication Instructions Recorded Levothyroxine [Synthroid] 112 mcg PO DAILY 01/24/14 Simvastatin [Zocor] 40 mg PO QHS 01/24/14 Anastrozole [Arimidex] 1 mg PO DAILY 03/17/15 traZODone [Desyrel] 150 mg PO QHS 05/07/16 Clonazepam [Klonopin] 1 mg PO DAILY PRN PRN #30 tablet 06/09/16 Bupropion HCl [Bupropion Xl] 150 mg PO DAILY 04/22/18 Prednisone 2.5 mg PO QODAY 04/22/18 Budesonide 2 ml INHALATION BID 05/04/18 Fluticasone Furoate [Arnuity 1 puff INHALATION DAILY 05/04/18 Ellipta] Furosemide [Lasix] 20 mg PO DAILY 05/04/18 Warfarin Sodium 1.5 mg PO MOFR 05/04/18 Warfarin Sodium 3 mg PO SUTUWETHSA 05/04/18 Acetaminophen [Tylenol Tablet] 650 mg PO Q6H PRN PRN tablet 05/09/18 Glucagon 1 mg IM .X1 PRN syringe 05/09/18 Magnesium Hydroxide [Milk Of 30 ml PO DAILY PRN PRN udc 05/09/18 Magnesia] traMADol [Ultram] 50 mg PO Q6H PRN PRN 3 Days #14 tab 05/09/18 Amox/Clavulanate Tablet [Augmentin 875 mg PO BID 05/10/18 Tablet] Insulin Lispro [Humalog KwikPen] See Protocol SQ ACHS 05/10/18 Ipratropium/Albuterol Sulfate 3 ml INHALATION Q6H.RT 05/10/18 [Duoneb] Nystatin Powder [Mycostatin Powder] 1 applic TOPICAL BID 05/10/18 Spironolactone [Aldactone] 25 mg PO DAILY 05/10/18 Surgical History: cholecystectomy, total hip arthroplasty - Bilateral., total knee arthroplasty - Bilateral., tonsillectomy, - - ORIF right ankle fracture, Tubal ligation. 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 PIERCING SPECIALIST history Lives: Spouse/ Significant Other Smoking Status: Never smoker Tobacco Use: Non-smoker Alcohol: None Drugs: None - *Family History Maternal History Items: No pertinent history Paternal History Items: Heart Disease Review of Systems Constitutional: Denies: Chills, Fever, Weight Change HEENT: Denies: Head Aches, Sinus Congestion, Sinus Drainage Cardiovascular: Denies: Chest Pain, Palpitations Respiratory: Denies: Cough, Shortness of breath at rest, Sputum production Gastrointestinal: Denies: Abdominal Pain, Nausea, Vomiting Genitourinary: Denies: Dysuria Musculoskeletal: Denies: Joint Pain, Joint Tenderness Skin: Denies: Rash, Wounds Neurological: Denies: Numbness, Tingling, Focal weakness Psychiatric: Denies: Anxiety, Depression, Homicidal Ideations, Suicidal Ideations Hematologic/ Lymphatic: Denies: Easy Bruising, Easy Bleeding VTE Information - Inpt Only VTE Present on Admission: No VTE Mechan Device Prophylaxis: Knee High JOANNA Hose VTE Pharm Prophylaxis ordered?: No Reason prophylaxis not ordered:: Treatment Not Indicated Patient Problems: Active and Suspected Problems Cellulitis of right lower extremity (Acute) Traumatic hematoma of right foot (Acute) Left ureteral stone (Acute) - Physical Exam General: Alert, Oriented x3, Cooperative HEENT: Atraumatic, PERRLA, EOMI, Normocephalic Neck: Supple, No JVD, Negative Carotid Bruits Lungs: Clear to auscultation, Normal air movement Cardiovascular: Regular rate, No murmurs Abdomen: Bowel Sounds Present, Soft, Non Tender Extremities: No edema, Capillary Refill Less than 3 Seconds, - - Right lower extremity dressed with compressive dressing. Skin: No rashes, No breakdown Musculoskeletal: No Tenderness to Palpation of Joints or Extremities Neurological: Cranial nerves II-XII grossly intact Psych/Mental Status: Normal Affect, Appropriate Vital Signs Temp Pulse Resp BP Pulse Ox 96.8 F L 103 H 18 149/74 H 94 05/10/18 15:07 05/10/18 15:07 05/10/18 15:07 05/10/18 15:07 05/10/18 15:07 Oxygen Flow Rate (L/min) 3 Oxygen Delivery Method Room Air Weight: 119.5 kg Body Mass Index (BMI) 43.8 Finger Stick Blood Glucose 155 Intake and Output for Last 24 Hours 05/08/18 05/09/18 05/10/18 23:59 23:59 23:59 Intake Total 240 / 240 Balance 240 / 240 POC Glucose 05/10/18 17:00 POC Glucose 133 H Assessment/Plan All Active Problems Cellulitis of right lower extremity (Acute) Traumatic hematoma of right foot (Acute) Left ureteral stone (Acute) 77 year old female with below past medical history hospitalized for infected right foot hematoma requiring incision and drainage 05/05/[address] Winston, complicated by left knee pain, ruled out for septic prosthetic knee by Dr. Martinez, complicated by recent left ureteral stent placement for left kidney stone, admitted to TCU with debility, here for rehabilitation, strengthening, wound care, prior to discharge home with spouse. * Debility - PT/OT. * Pain - Tylenol 1000MG Q6H PRN mild pain, Tramadol 50MG Q6H PRN moderate pain. * Bowel - Miralax 17GM daily, Senna/colace 1 tablet BID, Dulcolax 10MG PO daily PRN. * Pneumonia vaccination - Administer Prevnar 13 and/or Pneumovax 23 as necessary. * DVT prophylaxis - Not necessary, already on warfarin. * Infected right foot hematoma - Augmentin 875MG BID thru 05/20/2018. * Metastatic breast cancer - Arimidex 1MG daily. * Hyperlipidemia - Atorvastatin 20MG QHS, consider high intensity statin Atorvastatin 40MG QHS. 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 * Asthma - Flovent 250MCG 1 puff BID, Duoneb 3ML Q6H, Prednisone 2.5MG every other day. * Edema - Lasix 20MG daily, Aldactone 25MG daily. * Diabetes Mellitus II - Glucagon 1MG IM PRN hypoglycemia, stop Humalog SSI, monitor glucose for now. * Hypothyroidism - Levothyroxine 112MCG daily. * Skin irritation - Calmoseptine BID buttocks. * Tinea Corporis - Nystatin powder BID groin, abdominal folds. 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 * DVT/PE - Warfarin 3MG 5 days/week, 1.5MG 2 days/week, monitor INR.
[2018-05-10 21:21] LABS: Bedside Glucose 157 mg/dL (70-110)
[2018-05-11] MEDS: Senna/Docusate Sodium 1 Tablet PO ×2 (06:09→17:15)
[2018-05-11] MEDS: Anastrozole 1 MG Tablet PO (06:10)
[2018-05-11] MEDS: Spironolactone 25 MG Tablet PO (06:10)
[2018-05-11] MEDS: Amox/Clavulanate 875 MG Tablet PO ×2 (06:11→17:09)
[2018-05-11] MEDS: Furosemide 20 MG Tablet PO (06:11)
[2018-05-11] MEDS: buPROPion (XL) 150 MG TABLET.XL PO (06:11)
[2018-05-11] MEDS: Levothyroxine 112 MCG Tablet PO (06:11)
[2018-05-11] MEDS: Menthol/Lanolin/Calamine/Znox 113 GM Tube 1 APPLIC TOPICAL ×2 (06:12→20:54)
[2018-05-11 06:13] LABS: Anion Gap 10 (5-15); BUN 35 mg/dL (7-18); BUN/Creat Ratio 22.3 RATIO (10-20); Calcium,Total 9.2 mg/dL (8.5-10.1); Chloride 105 mmol/L (98-107); Creatinine, Serum 1.57 mg/dL (0.55-1.02); EST Glomerular Filtration Rate 34 mL/min (>60); Est Glom Filt Rate - Afr Amer 41 mL/min (>60); Estimated Creatinine Clearance 27.86 ml/min; Glucose 156 mg/dL (74-106); Potassium 4.1 mmol/L (3.5-5.1); Sodium Level 140 mmol/L (136-145)
[2018-05-11] MEDS: Nystatin Powder 15gm Bottle 1 APPLIC TOPICAL ×2 (06:15→20:54)
[2018-05-11 06:46] LABS: Bedside Glucose 159 mg/dL (70-110)
[2018-05-11 06:49] LABS: Hematocrit 33.1 % (37-47); Hemoglobin 9.8 g/dl (12.0-15.0); Mean Corp Hgb Conc 29.6 g/gl (32-36); Mean Corpuscular Hgb 27.2 pg (27.0-32.0); Mean Corpuscular Volume 91.9 fL (81-99); Mean Platelet Vol. 8.4 fl (6.2-12.0); Platelet Count 526 K/mm3 (150-450); RBC Distribution Width CV 15.4 % (11.6-14.6); RBC Distribution Width SD 50.4 fl (35.1-43.9)
[2018-05-11 06:52] LABS: Differential Indicated MANUAL DIFF; POSITIVE COUNT YES; POSITIVE DIFFERENTIAL NO; POSITIVE MORPHOLOGY YES
[2018-05-11 07:54] LABS: Basophil 2 % (0-1); Eosinophil 2 % (0-5); Lymphocyte 12 % (19-41); Monocyte 7 % (0-10); Myelocyte 3 (0-0); Neutrophil-Band 1 % (0-5); Neutrophil-Segmented 73 % (47-70); Red Cell Morphology NORM C+C NORMAL (NORM C&C); Total Cells Counted 100 (MANUAL DIFF)
[2018-05-11 07:55] LABS: Absolute Neutrophil Count 5.9 X10^3/uL (2.0-7.7); Platelet Estimate SLT INC (ADEQ)
[2018-05-11 09:30] LABS: International Normalized Ratio 1.4; Prothrombin Time (Protime)PT. 17.5 SECONDS (11.7-14.9)
--- NOTE | 2018-05-11 10:11 | NURSING ---
Addendum entered by Delmi Leon 05/11/18 10:38: to stop coumadin on tuesday night and start Lovenox 80mg on tuesday bid x5 days. office to send written orders. Original Note: Dr Estes office called reporting pt has surgery on 05/19 lt ureterostomy for kidney stone as outpt approx 11:15a. office to fax orders.
[2018-05-11 11:26] LABS: Bedside Glucose 182 mg/dL (70-110)
[2018-05-11 13:14] VITALS: PULSE 99; RESP 17; O2SAT 100
[2018-05-11] MEDS: Ipratropium/Albuterol Sulfate 3 ML AMPUL.NEB INHALATION ×2 (13:14→18:43)
[2018-05-11] MEDS: Tuberculin,Purif.prot.deriv. 50 TU/ML Vial 5 ML ID (13:14)
--- NOTE | 2018-05-11 14:38 | CASEMGMT ---
Reviewed and approved attached social work student documentation. Guru LATHAM, DESMOND
--- NOTE | 2018-05-11 14:39 | NURSING ---
wound photo: right foot
--- NOTE | 2018-05-11 15:19 | PCM.PN.RX ---
<Elton Waters Antonio - Last Filed: 05/11/18 15:19> Progress Note - Pharmacy Subjective: TCU Admission Objective: Allergies acetaminophen [From Vicodin] Allergy (Verified 05/04/18 12:35) Unknown codeine Allergy (Verified 05/04/18 12:35) Unknown hydrocodone bitartrate [From Vicodin] Allergy (Verified 05/04/18 12:35) Unknown Current Medications Generic Name Dose Route Start Last Admin Trade Name Freq PRN Reason Stop Dose Admin Acetaminophen 1,000 mg 05/10/18 21:04 Tylenol PO Q6H PRN PRN MILD PAIN (1-06/04) Albuterol/Ipratropium 3 ml 05/11/18 19:00 Duoneb INHALATION BID.RT PASCUAL Amoxicillin/Clavulanate Potassium 875 mg 05/10/18 18:00 05/11/18 06:11 Augmentin Tablet PO 05/20/18 18:01 875 mg BID PASCUAL Administration Anastrozole 1 mg 05/11/18 06:00 05/11/18 06:10 Arimidex PO 1 mg DAILY [facility] Administration Atorvastatin Calcium 20 mg 05/10/18 22:00 05/10/18 19:47 Lipitor PO 20 mg QHS [facility]CUAL Administration Bisacodyl 10 mg 05/10/18 21:04 Dulcolax PO DAILY PRN Constipation Bupropion HCl 150 mg 05/11/18 06:00 05/11/18 06:11 Wellbutrin Xl PO 150 mg DAILY [facility] Administration Calamine/Phenol 1 applic 05/10/18 22:00 05/11/18 06:12 Calmoseptine Ointment TOPICAL 1 applicatio 0600,2200 [facility] Administration Protocol Clonazepam 1 mg 05/10/18 15:18 Klonopin PO DAILY PRN PRN restless leg syndrome Enoxaparin Sodium 80 mg 05/15/18 06:00 Lovenox SC 05/20/18 06:01 Q12@0600,1800 [facility] Fluticasone Propionate 1 puff 05/10/18 18:00 05/11/18 06:12 Flovent Diskus 250 Mcg INHALATION 1 puff BID [facility] Administration Furosemide 20 mg 05/11/18 06:00 05/11/18 06:11 Lasix PO 20 mg DAILY [facility] Administration Glucagon 1 mg 05/10/18 15:18 IM .X1 PRN Hypoglycemia Levothyroxine Sodium 112 mcg 05/11/18 06:00 05/11/18 06:11 Synthroid PO 112 mcg DAILY@0600 [facility] Administration Multi-Ingredient Cream 1 applic 05/10/18 22:00 05/10/18 22:13 Eucerin TOPICAL Not Given 2200 [facility] Protocol Nystatin 1 applic 05/10/18 18:00 05/11/18 06:15 Mycostatin Powder TOPICAL 1 applicatio BID [facility] Administration Protocol Polyethylene Glycol 17 gm 05/11/18 06:00 05/11/18 06:10 Miralax PO Not Given DAILY [facility] Prednisone 2.5 mg 05/12/18 08:00 PO QODAY@0800 [facility] Senna/Docusate Sodium 1 tablet 05/11/18 06:00 05/11/18 06:09 Senokot-S, Yola-Colace PO 1 tablet BID [facility] Administration Spironolactone 25 mg 05/11/18 06:00 05/11/18 06:10 Aldactone PO 25 mg DAILY [facility] Administration Tramadol HCl 50 mg 05/10/18 21:04 Ultram PO Q6H PRN PRN MODERATE PAIN (4-5/10) Trazodone HCl 150 mg 05/10/18 22:00 05/10/18 19:48 Desyrel PO 150 mg QHS [facility] Administration Tuberculin PPD 5 tu 05/18/18 10:00 Tubersol, Aplisol, Ppd ID 05/18/18 10:01 X1 ONE Warfarin Sodium 1.5 mg 05/12/18 17:00 Coumadin (Pbkc) PO 05/14/18 18:00 MoFr@1700 [facility] Warfarin Sodium 3 mg 05/10/18 18:30 05/10/18 18:18 Coumadin (Pbkc) PO 05/14/18 18:00 3 mg [id number]@1700 [facility] Administration Problem List 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) Cellulitis of right lower extremity (Acute) Traumatic hematoma of right foot (Acute) Left ureteral stone (Acute) Diabetes mellitus (Chronic) Insomnia (Chronic) Anxiety (Chronic) Depression (Chronic) Chronic obstructive pulmonary disease (Chronic) Vital Signs Temp Pulse Resp BP Pulse Ox 96.8 F L 103 H 18 149/74 H 94 05/10/18 15:07 05/10/18 15:07 05/10/18 15:07 05/10/18 15:07 05/10/18 15:07 Oxygen Flow Rate (L/min) 3 Oxygen Delivery Method Room Air Weight: 119.5 kg Body Mass Index (BMI) 43.8 Finger Stick Blood Glucose 155 Sodium 140 mmol/L (136-145) 05/11/18 05:20 Potassium 4.1 mmol/L (3.5-5.1) 05/11/18 05:20 Chloride 105 mmol/L (98-107) 05/11/18 05:20 Carbon Dioxide 25.0 mmol/L (21.0-32.0) 05/11/18 05:20 Anion Gap 10 (5-15) 05/11/18 05:20 BUN 35 mg/dL (7-18) H 05/11/18 05:20 Creatinine 1.57 mg/dL (0.55-1.02) H 05/11/18 05:20 Est GFR (MDRD) Af Amer 41 mL/min (>60) L 05/11/18 05:20 Est GFR (MDRD) Non-Af 34 mL/min (>60) L 05/11/18 05:20 BUN/Creatinine Ratio 22.3 RATIO (10-20) H 05/11/18 05:20 Glucose 156 mg/dL (74-106) H 05/11/18 05:20 Assessment/Plan: 1) Pain APAP for mild pain, tramadol for moderate pain. Continue to monitor prn medication use, daily pain scores. * 2) DVT/PE Warfarin daily, enoxaparin is now scheduled as a bridge dose after surgery per Dr Estes. For full anticoagulation and crcl < 30 mL/min, dose should be 120mg daily scheduled 05/15-05/20 per original order from Dr Estes. Continue to monitor PT/INR, for bleeding/clot. 3) ID Amox/clav thru 05/20. Continue to monitor s/s infection. 4) Breast Cancer Anastrozole daily. Continue to monitor clinically. 5) Pulm Ipratropium/albuterol inh, flovent inhaler. Continue to monitor for shortness of breath. 6) Hypothyroidism Levothyroxine daily. Continue to monitor for hyper/hypothyroidism. 7) HLD Atorvastatin at HS. Continue to monitor lipids. 8 Edema Spironolactone, furosemide. Continue to monitor BP/HR, renal function, electrolytes. Psychotropic Medications: 9) Depression Bupropion. Continue to monitor for depression. * 10) RLS Clonazepam daily prn for restless legs. Medication not indicated for RLS. Please consider dc or verify instructions for use. 11) Insomnia Trazodone at HS. Continue to monitor for insomnia. Unnecessary Medications: None Bowel Regimen: 12) Senna/s, PEG, prn bisacodyl. Continue to monitor prn medication use, for constipation/diarrhea. Date of Note:: 05/11/18 - Provider Comments Provider responsibility: Provider responsible to enter orders to implement recommendations <Luis E Sandoval Chi - Last Filed: 05/11/18 17:16> Progress Note - Pharmacy Subjective: [] Objective: Allergies acetaminophen [From Vicodin] Allergy (Verified 05/04/18 12:35) Unknown codeine Allergy (Verified 05/04/18 12:35) Unknown hydrocodone bitartrate [From Vicodin] Allergy (Verified 05/04/18 12:35) Unknown Current Medications Generic Name Dose Route Start Last Admin Trade Name Freq PRN Reason Stop Dose Admin Acetaminophen 1,000 mg 05/10/18 21:04 Tylenol PO Q6H PRN PRN MILD PAIN (1-3/10) Albuterol/Ipratropium 3 ml 05/11/18 19:00 Duoneb INHALATION BID.RT PASCUAL Amoxicillin/Clavulanate Potassium 875 mg 05/10/18 18:00 05/11/18 17:09 Augmentin Tablet PO 05/20/18 18:01 875 mg BID [facility] Administration Anastrozole 1 mg 05/11/18 06:00 05/11/18 06:10 Arimidex PO 1 mg DAILY [facility] Administration Atorvastatin Calcium 20 mg 05/10/18 22:00 05/10/18 19:47 Lipitor PO 20 mg QHS [facility] Administration Bisacodyl 10 mg 05/10/18 21:04 Dulcolax PO DAILY PRN Constipation Bupropion HCl 150 mg 05/11/18 06:00 05/11/18 06:11 Wellbutrin Xl PO 150 mg DAILY [facility] Administration Calamine/Phenol 1 applic 05/10/18 22:00 05/11/18 06:12 Calmoseptine Ointment TOPICAL 1 applicatio 0600,2200 [facility] Administration Protocol Clonazepam 1 mg 05/10/18 15:18 Klonopin PO DAILY PRN PRN restless leg syndrome Enoxaparin Sodium 120 mg 05/12/18 06:00 Lovenox SC 05/17/18 06:01 DAILY [facility] Fluticasone Propionate 1 puff 05/10/18 18:00 05/11/18 17:08 Flovent Diskus 250 Mcg INHALATION 1 puff BID [facility] Administration Furosemide 20 mg 05/11/18 06:00 05/11/18 06:11 Lasix PO 20 mg DAILY [facility] Administration Glucagon 1 mg 05/10/18 15:18 IM .X1 PRN Hypoglycemia Levothyroxine Sodium 112 mcg 05/11/18 06:00 05/11/18 06:11 Synthroid PO 112 mcg DAILY@0600 [facility] Administration Multi-Ingredient Cream 1 applic 05/10/18 22:00 05/10/18 22:13 Eucerin TOPICAL Not Given 2200 [facility] Protocol Nystatin 1 applic 05/10/18 18:00 05/11/18 06:15 Mycostatin Powder TOPICAL 1 applicatio BID [facility] Administration Protocol Polyethylene Glycol 17 gm 05/11/18 06:00 05/11/18 06:10 Miralax PO Not Given DAILY [facility] Prednisone 2.5 mg 05/12/18 08:00 PO QODAY@0800 [facility] Senna/Docusate Sodium 1 tablet 05/11/18 06:00 05/11/18 17:15 Senokot-S, Yola-Colace PO 1 tablet BID [facility] Administration Spironolactone 25 mg 05/11/18 06:00 05/11/18 06:10 Aldactone PO 25 mg DAILY [facility] Administration Tramadol HCl 50 mg 05/10/18 21:04 Ultram PO Q6H PRN PRN MODERATE PAIN (4-5/10) Trazodone HCl 150 mg 05/10/18 22:00 05/10/18 19:48 Desyrel PO 150 mg QHS [facility] Administration Tuberculin PPD 5 tu 05/18/18 10:00 Tubersol, Aplisol, Ppd ID 05/18/18 10:01 X1 ONE Warfarin Sodium 1.5 mg 05/12/18 17:00 Coumadin (Pbkc) PO 05/14/18 18:00 MoFr@1700 [facility] Warfarin Sodium 3 mg 05/10/18 18:30 05/11/18 17:10 Coumadin (Pbkc) PO 05/14/18 18:00 3 mg [id number]@1700 [facility] Administration Problem List 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) Cellulitis of right lower extremity (Acute) Traumatic hematoma of right foot (Acute) Left ureteral stone (Acute) Diabetes mellitus (Chronic) Insomnia (Chronic) Anxiety (Chronic) Depression (Chronic) Chronic obstructive pulmonary disease (Chronic) Vital Signs Temp Pulse Resp BP Pulse Ox 96.3 F L 100 16 128/79 H 99 05/11/18 15:35 05/11/18 15:35 05/11/18 15:35 05/11/18 15:35 05/11/18 15:35 Oxygen Flow Rate (L/min) 3 Oxygen Delivery Method Room Air Weight: 119.5 kg Body Mass Index (BMI) 43.8 Finger Stick Blood Glucose 155 Sodium 140 mmol/L (136-145) 05/11/18 05:20 Potassium 4.1 mmol/L (3.5-5.1) 05/11/18 05:20 Chloride 105 mmol/L (98-107) 05/11/18 05:20 Carbon Dioxide 25.0 mmol/L (21.0-32.0) 05/11/18 05:20 Anion Gap 10 (5-15) 05/11/18 05:20 BUN 35 mg/dL (7-18) H 05/11/18 05:20 Creatinine 1.57 mg/dL (0.55-1.02) H 05/11/18 05:20 Est GFR (MDRD) Af Amer 41 mL/min (>60) L 05/11/18 05:20 Est GFR (MDRD) Non-Af 34 mL/min (>60) L 05/11/18 05:20 BUN/Creatinine Ratio 22.3 RATIO (10-20) H 05/11/18 05:20 Glucose 156 mg/dL (74-106) H 05/11/18 05:20 Assessment/Plan: Psychotropic Medications: Unnecessary Medications: Bowel Regimen: - Provider Comments Provider responsibility: Provider responsible to enter orders to implement recommendations Provider Comments to Recommendations by Pharmacy: Agree
--- NOTE | 2018-05-11 15:29 | PHA.CONS_ITS ---
<Elton Waters Antonio - Last Filed: 05/11/18 15:19> Progress Note - Pharmacy Subjective: TCU Admission Objective: Allergies acetaminophen [From Vicodin] Allergy (Verified 05/04/18 12:35) Unknown codeine Allergy (Verified 05/04/18 12:35) Unknown hydrocodone bitartrate [From Vicodin] Allergy (Verified 05/04/18 12:35) Unknown Current Medications Generic Name Dose Route Start Last Admin Trade Name Freq PRN Reason Stop Dose Admin Acetaminophen 1,000 mg 05/10/18 21:04 Tylenol PO Q6H PRN PRN MILD PAIN (1-06/04) Albuterol/Ipratropium 3 ml 05/11/18 19:00 Duoneb INHALATION BID.RT PASCUAL Amoxicillin/Clavulanate Potassium 875 mg 05/10/18 18:00 05/11/18 06:11 Augmentin Tablet PO 05/20/18 18:01 875 mg BID PASCUAL Administration Anastrozole 1 mg 05/11/18 06:00 05/11/18 06:10 Arimidex PO 1 mg DAILY [facility] Administration Atorvastatin Calcium 20 mg 05/10/18 22:00 05/10/18 19:47 Lipitor PO 20 mg QHS [facility] Administration Bisacodyl 10 mg 05/10/18 21:04 Dulcolax PO DAILY PRN Constipation Bupropion HCl 150 mg 05/11/18 06:00 05/11/18 06:11 Wellbutrin Xl PO 150 mg DAILY [facility] Administration Calamine/Phenol 1 applic 05/10/18 22:00 05/11/18 06:12 Calmoseptine Ointment TOPICAL 1 applicatio 0600,2200 [facility] Administration Protocol Clonazepam 1 mg 05/10/18 15:18 Klonopin PO DAILY PRN PRN restless leg syndrome Enoxaparin Sodium 80 mg 05/15/18 06:00 Lovenox SC 05/20/18 06:01 Q12@0600,1800 [facility] Fluticasone Propionate 1 puff 05/10/18 18:00 05/11/18 06:12 Flovent Diskus 250 Mcg INHALATION 1 puff BID PASCUAL Administration Furosemide 20 mg 05/11/18 06:00 05/11/18 06:11 Lasix PO 20 mg DAILY [facility] Administration Glucagon 1 mg 05/10/18 15:18 IM .X1 PRN Hypoglycemia Levothyroxine Sodium 112 mcg 05/11/18 06:00 05/11/18 06:11 Synthroid PO 112 mcg DAILY@0600 [facility] Administration Multi-Ingredient Cream 1 applic 05/10/18 22:00 05/10/18 22:13 Eucerin TOPICAL Not Given 2200 [facility] Protocol Nystatin 1 applic 05/10/18 18:00 05/11/18 06:15 Mycostatin Powder TOPICAL 1 applicatio BID [facility] Administration Protocol Polyethylene Glycol 17 gm 05/11/18 06:00 05/11/18 06:10 Miralax PO Not Given DAILY [facility] Prednisone 2.5 mg 05/12/18 08:00 PO QODAY@0800 [facility] Senna/Docusate Sodium 1 tablet 05/11/18 06:00 05/11/18 06:09 Senokot-S, Yola-Colace PO 1 tablet BID [facility] Administration Spironolactone 25 mg 05/11/18 06:00 05/11/18 06:10 Aldactone PO 25 mg DAILY [facility] Administration Tramadol HCl 50 mg 05/10/18 21:04 Ultram PO Q6H PRN PRN MODERATE PAIN (4-5/10) Trazodone HCl 150 mg 05/10/18 22:00 05/10/18 19:48 Desyrel PO 150 mg QHS [facility] Administration Tuberculin PPD 5 tu 05/18/18 10:00 Tubersol, Aplisol, Ppd ID 05/18/18 10:01 X1 ONE Warfarin Sodium 1.5 mg 05/12/18 17:00 Coumadin (Pbkc) PO 05/14/18 18:00 MoFr@1700 [facility] Warfarin Sodium 3 mg 05/10/18 18:30 05/10/18 18:18 Coumadin (Pbkc) PO 05/14/18 18:00 3 mg [id number]@1700 [facility] Administration Problem List 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) Cellulitis of right lower extremity (Acute) Traumatic hematoma of right foot (Acute) Left ureteral stone (Acute) Diabetes mellitus (Chronic) Insomnia (Chronic) Anxiety (Chronic) Depression (Chronic) Chronic obstructive pulmonary disease (Chronic) Vital Signs Temp Pulse Resp BP Pulse Ox 96.8 F L 103 H 18 149/74 H 94 05/10/18 15:07 05/10/18 15:07 05/10/18 15:07 05/10/18 15:07 05/10/18 15:07 Oxygen Flow Rate (L/min) 3 Oxygen Delivery Method Room Air Weight: 119.5 kg Body Mass Index (BMI) 43.8 Finger Stick Blood Glucose 155 Sodium 140 mmol/L (136-145) 05/11/18 05:20 Potassium 4.1 mmol/L (3.5-5.1) 05/11/18 05:20 Chloride 105 mmol/L (98-107) 05/11/18 05:20 Carbon Dioxide 25.0 mmol/L (21.0-32.0) 05/11/18 05:20 Anion Gap 10 (5-15) 05/11/18 05:20 BUN 35 mg/dL (7-18) H 05/11/18 05:20 Creatinine 1.57 mg/dL (0.55-1.02) H 05/11/18 05:20 Est GFR (MDRD) Af Amer 41 mL/min (>60) L 05/11/18 05:20 Est GFR (MDRD) Non-Af 34 mL/min (>60) L 05/11/18 05:20 BUN/Creatinine Ratio 22.3 RATIO (10-20) H 05/11/18 05:20 Glucose 156 mg/dL (74-106) H 05/11/18 05:20 Assessment/Plan: 1) Pain APAP for mild pain, tramadol for moderate pain. Continue to monitor prn medication use, daily pain scores. * 2) DVT/PE Warfarin daily, enoxaparin is now scheduled as a bridge dose after surgery per Dr Estes. For full anticoagulation and crcl < 30 mL/min, dose should be 120mg daily scheduled 05/15-05/20 per original order from Dr Estes. Continue to monitor PT/INR, for bleeding/clot. 3) ID Amox/clav thru 05/20. Continue to monitor s/s infection. 4) Breast Cancer Anastrozole daily. Continue to monitor clinically. 5) Pulm Ipratropium/albuterol inh, flovent inhaler. Continue to monitor for shortness of breath. 6) Hypothyroidism Levothyroxine daily. Continue to monitor for hyper/hypothyroidism. 7) HLD Atorvastatin at HS. Continue to monitor lipids. 8 Edema Spironolactone, furosemide. Continue to monitor BP/HR, renal function, electrolytes. Psychotropic Medications: 9) Depression Bupropion. Continue to monitor for depression. * 10) RLS Clonazepam daily prn for restless legs. Medication not indicated for RLS. Please consider dc or verify instructions for use. 11) Insomnia Trazodone at HS. Continue to monitor for insomnia. Unnecessary Medications: None Bowel Regimen: 12) Senna/s, PEG, prn bisacodyl. Continue to monitor prn medication use, for constipation/diarrhea. Date of Note:: 05/11/18 - Provider Comments Provider responsibility: Provider responsible to enter orders to implement recommendations <Luis E Sandoval Chi - Last Filed: 05/11/18 17:16> Progress Note - Pharmacy Subjective: [] Objective: Allergies acetaminophen [From Vicodin] Allergy (Verified 05/04/18 12:35) Unknown codeine Allergy (Verified 05/04/18 12:35) Unknown hydrocodone bitartrate [From Vicodin] Allergy (Verified 05/04/18 12:35) Unknown Current Medications Generic Name Dose Route Start Last Admin Trade Name Freq PRN Reason Stop Dose Admin Acetaminophen 1,000 mg 05/10/18 21:04 Tylenol PO Q6H PRN PRN MILD PAIN (1-3/10) Albuterol/Ipratropium 3 ml 05/11/18 19:00 Duoneb INHALATION BID.RT PASCUAL Amoxicillin/Clavulanate Potassium 875 mg 05/10/18 18:00 05/11/18 17:09 Augmentin Tablet PO 05/20/18 18:01 875 mg BID PASCUAL Administration Anastrozole 1 mg 05/11/18 06:00 05/11/18 06:10 Arimidex PO 1 mg DAILY [facility] Administration Atorvastatin Calcium 20 mg 05/10/18 22:00 05/10/18 19:47 Lipitor PO 20 mg QHS [facility] Administration Bisacodyl 10 mg 05/10/18 21:04 Dulcolax PO DAILY PRN Constipation Bupropion HCl 150 mg 05/11/18 06:00 05/11/18 06:11 Wellbutrin Xl PO 150 mg DAILY [facility] Administration Calamine/Phenol 1 applic 05/10/18 22:00 05/11/18 06:12 Calmoseptine Ointment TOPICAL 1 applicatio 0600,2200 [facility] Administration Protocol Clonazepam 1 mg 05/10/18 15:18 Klonopin PO DAILY PRN PRN restless leg syndrome Enoxaparin Sodium 120 mg 05/12/18 06:00 Lovenox SC 05/17/18 06:01 DAILY [facility] Fluticasone Propionate 1 puff 05/10/18 18:00 05/11/18 17:08 Flovent Diskus 250 Mcg INHALATION 1 puff BID [facility] Administration Furosemide 20 mg 05/11/18 06:00 05/11/18 06:11 Lasix PO 20 mg DAILY [facility] Administration Glucagon 1 mg 05/10/18 15:18 IM .X1 PRN Hypoglycemia Levothyroxine Sodium 112 mcg 05/11/18 06:00 05/11/18 06:11 Synthroid PO 112 mcg DAILY@0600 [facility] Administration Multi-Ingredient Cream 1 applic 05/10/18 22:00 05/10/18 22:13 Eucerin TOPICAL Not Given 2200 [facility] Protocol Nystatin 1 applic 05/10/18 18:00 05/11/18 06:15 Mycostatin Powder TOPICAL 1 applicatio BID [facility] Administration Protocol Polyethylene Glycol 17 gm 05/11/18 06:00 05/11/18 06:10 Miralax PO Not Given DAILY [facility] Prednisone 2.5 mg 05/12/18 08:00 PO QODAY@0800 [facility] Senna/Docusate Sodium 1 tablet 05/11/18 06:00 05/11/18 17:15 Senokot-S, Yola-Colace PO 1 tablet BID [facility] Administration Spironolactone 25 mg 05/11/18 06:00 05/11/18 06:10 Aldactone PO 25 mg DAILY [facility] Administration Tramadol HCl 50 mg 05/10/18 21:04 Ultram PO Q6H PRN PRN MODERATE PAIN (4-5/10) Trazodone HCl 150 mg 05/10/18 22:00 05/10/18 19:48 Desyrel PO 150 mg QHS [facility] Administration Tuberculin PPD 5 tu 05/18/18 10:00 Tubersol, Aplisol, Ppd ID 05/18/18 10:01 X1 ONE Warfarin Sodium 1.5 mg 05/12/18 17:00 Coumadin (Pbkc) PO 05/14/18 18:00 MoFr@1700 [facility] Warfarin Sodium 3 mg 05/10/18 18:30 05/11/18 17:10 Coumadin (Pbkc) PO 05/14/18 18:00 3 mg [id number]@1700 [facility] Administration Problem List 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) Cellulitis of right lower extremity (Acute) Traumatic hematoma of right foot (Acute) Left ureteral stone (Acute) Diabetes mellitus (Chronic) Insomnia (Chronic) Anxiety (Chronic) Depression (Chronic) Chronic obstructive pulmonary disease (Chronic) Vital Signs Temp Pulse Resp BP Pulse Ox 96.3 F L 100 16 128/79 H 99 05/11/18 15:35 05/11/18 15:35 05/11/18 15:35 05/11/18 15:35 05/11/18 15:35 Oxygen Flow Rate (L/min) 3 Oxygen Delivery Method Room Air Weight: 119.5 kg Body Mass Index (BMI) 43.8 Finger Stick Blood Glucose 155 Sodium 140 mmol/L (136-145) 05/11/18 05:20 Potassium 4.1 mmol/L (3.5-5.1) 05/11/18 05:20 Chloride 105 mmol/L (98-107) 05/11/18 05:20 Carbon Dioxide 25.0 mmol/L (21.0-32.0) 05/11/18 05:20 Anion Gap 10 (5-15) 05/11/18 05:20 BUN 35 mg/dL (7-18) H 05/11/18 05:20 Creatinine 1.57 mg/dL (0.55-1.02) H 05/11/18 05:20 Est GFR (MDRD) Af Amer 41 mL/min (>60) L 05/11/18 05:20 Est GFR (MDRD) Non-Af 34 mL/min (>60) L 05/11/18 05:20 BUN/Creatinine Ratio 22.3 RATIO (10-20) H 05/11/18 05:20 Glucose 156 mg/dL (74-106) H 05/11/18 05:20 Assessment/Plan: Psychotropic Medications: Unnecessary Medications: Bowel Regimen: - Provider Comments Provider responsibility: Provider responsible to enter orders to implement recommendations Provider Comments to Recommendations by Pharmacy: Agree
[2018-05-11 15:35] VITALS: BP 128/79; PULSE 100; RESP 16; TEMP 35.7; O2SAT 99
--- NOTE | 2018-05-11 15:55 | CPS ---
Patient has PEP therapy from prior admission. Patient is using it on own.
--- NOTE | 2018-05-11 15:56 | CPS ---
Patient has Incentive Spirometer from prior admission, pt is using IS on own.
--- NOTE | 2018-05-11 15:57 | CPS ---
Patient has own CPAP unit set-up at bedside for use at night.
[2018-05-11 16:56] LABS: Bedside Glucose 122 mg/dL (70-110)
[2018-05-11 18:43] VITALS: PULSE 98; RESP 18; O2SAT 97
--- NOTE | 2018-05-11 19:52 | EKG12_ITS ---
Test Reason : PALPITATIONS Blood Pressure : / mmHG Vent. Rate : 099 BPM Atrial Rate : 099 BPM P-R Int : 164 ms QRS Dur : 094 ms QT Int : 378 ms P-R-T Axes : 035 -32 020 degrees QTc Int : 485 ms Normal sinus rhythm Left axis deviation Abnormal ECG When compared with ECG of 05-MAY-2018 08:59, No significant change was found Confirmed by DEBRA MEJIA, DANK ([id number]), script editor YUDITH PADRON ([id number]) on 05/16/2018 11:56:06 AM Referred By: Luis E Sandoval Confirmed By:DANK RICHARDSON MD
[2018-05-11 20:01] LABS: Bedside Glucose 144 mg/dL (70-110)
[2018-05-11] MEDS: Atorvastatin Calcium 20 MG Tablet PO (20:51)
[2018-05-11] MEDS: traZODone 50 MG Tablet 150 MG PO (20:51)
[2018-05-11] MEDS: Enoxaparin 120 MG/0.8 ML Syringe SC (20:52)
[2018-05-11 20:56] LABS: Bedside Glucose 152 mg/dL (70-110)
[2018-05-11] MEDS: clonazePAM 1 MG Tablet PO (21:16)
--- NOTE | 2018-05-12 00:31 | NURSING ---
ENTRY LEVEL ACCOUNT REPRESENTATIVE reported to RN pt c/o heart racing. RN entered room find pt with computer on lap and no visible distress. Pt c/o quivering to top of chest this evening. Pt denies pain. Pt denies radiating. B/P 143/73 HR reg 101 Resp 18 98% RA Temp 97.6. Pt stated, It feels like heart as shaking. EKG obtained. Warm blankets provided. DR Sandoval notified. N.N.O. Will continue to monitor and asses.
[2018-05-12] MEDS: Menthol/Lanolin/Calamine/Znox 113 GM Tube 1 APPLIC TOPICAL ×2 (04:25→21:25)
[2018-05-12] MEDS: Nystatin Powder 15gm Bottle 1 APPLIC TOPICAL ×2 (04:25→16:38)
[2018-05-12] MEDS: Polyethylene Glycol 3350 17 GM PACKET PO (04:25)
[2018-05-12] MEDS: buPROPion (XL) 150 MG TABLET.XL PO (06:15)
[2018-05-12] MEDS: Anastrozole 1 MG Tablet PO (06:15)
[2018-05-12] MEDS: Levothyroxine 112 MCG Tablet PO (06:15)
[2018-05-12] MEDS: Spironolactone 25 MG Tablet PO (06:15)
[2018-05-12] MEDS: Amox/Clavulanate 875 MG Tablet PO ×2 (06:15→16:38)
[2018-05-12] MEDS: Senna/Docusate Sodium 1 Tablet PO ×2 (06:15→16:38)
[2018-05-12] MEDS: Enoxaparin 120 MG/0.8 ML Syringe SC (06:18)
[2018-05-12] MEDS: Furosemide 20 MG Tablet PO (06:18)
[2018-05-12 06:26] LABS: Bedside Glucose 116 mg/dL (70-110)
[2018-05-12 07:51] VITALS: PULSE 95; RESP 16; O2SAT 94
[2018-05-12] MEDS: Ipratropium/Albuterol Sulfate 3 ML AMPUL.NEB INHALATION ×2 (07:51→18:32)
[2018-05-12] MEDS: predniSONE 5 MG Tablet 2.5 MG PO (08:03)
[2018-05-12 10:56] LABS: Bedside Glucose 167 mg/dL (70-110)
[2018-05-12 13:09] LABS: Pathologist Review Reviewed
[2018-05-12 15:17] VITALS: BP 111/71; PULSE 90; RESP 16; TEMP 35.6; O2SAT 96
[2018-05-12 17:02] LABS: Bedside Glucose 128 mg/dL (70-110)
[2018-05-12 18:32] VITALS: PULSE 100; RESP 16; O2SAT 92
[2018-05-12] MEDS: Atorvastatin Calcium 20 MG Tablet PO (21:24)
[2018-05-12] MEDS: traZODone 50 MG Tablet 150 MG PO (21:24)
[2018-05-12 21:31] LABS: Bedside Glucose 157 mg/dL (70-110)
[2018-05-13] MEDS: Menthol/Lanolin/Calamine/Znox 113 GM Tube 1 APPLIC TOPICAL ×2 (05:57→21:18)
[2018-05-13] MEDS: Nystatin Powder 15gm Bottle 1 APPLIC TOPICAL ×2 (05:58→17:09)
[2018-05-13] MEDS: Senna/Docusate Sodium 1 Tablet PO ×2 (05:58→17:05)
[2018-05-13] MEDS: Furosemide 20 MG Tablet PO (05:58)
[2018-05-13] MEDS: Anastrozole 1 MG Tablet PO (05:58)
[2018-05-13] MEDS: buPROPion (XL) 150 MG TABLET.XL PO (05:58)
[2018-05-13] MEDS: Polyethylene Glycol 3350 17 GM PACKET PO (05:58)
[2018-05-13] MEDS: Levothyroxine 112 MCG Tablet PO (05:58)
[2018-05-13] MEDS: Enoxaparin 120 MG/0.8 ML Syringe SC (05:58)
[2018-05-13] MEDS: Amox/Clavulanate 875 MG Tablet PO ×2 (05:58→17:05)
[2018-05-13] MEDS: Spironolactone 25 MG Tablet PO (05:58)
[2018-05-13 06:42] VITALS: PULSE 78; RESP 18; O2SAT 98
[2018-05-13] MEDS: Ipratropium/Albuterol Sulfate 3 ML AMPUL.NEB INHALATION ×2 (06:42→18:56)
[2018-05-13 06:51] LABS: Bedside Glucose 142 mg/dL (70-110)
--- NOTE | 2018-05-13 10:35 | NURSING ---
Addendum entered by Delmi Leon 05/15/18 13:43: doppler negative. Original Note: Pt c/o lt leg feeling tight and more swollen today, robin's sign negative but lower lateral beckman is swollen, red and tight. Also assessed by SPARKLE Ortiz, he states he will let Dr. Sandoval know.
[2018-05-13 11:40] LABS: Bedside Glucose 143 mg/dL (70-110)
--- NOTE | 2018-05-13 12:48 | VDLE_ITS ---
RIGHT LEFT GSV is normal. GSV is normal. CFV is compressible, spontaneous, phasic, CFV is compressible, spontaneous, phasic, competent and demonstrates normal competent, and demonstrates normal augmentation. augmentation. FV is compressible, spontaneous, phasic, FV is compressible, spontaneous, phasic, competent and demonstrates normal competent and demonstrates normal augmentation. augmentation. POP V is compressible, spontaneous, phasic, POP V is compressible, spontaneous, phasic, competent and demonstrates normal competent and demonstrates normal augmentation. augmentation. T/P Trunk is compressible. T/P Trunk is compressible. PTV is compressible. PTV is compressible. RT PerV is compressible. LT PerV is compressible. Procedure Exam performed portable in patient room. A preliminary report was called and/or faxed to TCU nurse. Interpretation Summary Deep veins of the lower extremities are bilaterally patent and compressible segmentally. There is no evidence of deep vein thrombosis on either side. Valvular competence appears intact within the proximal deep venous systems bilaterally. The greater saphenous veins appear bilaterally patent and compressible segmentally. Ordering Physician: Luis E Sandoval Referring Physician: Ai Anguiano M.D. Performed By: Krys Peck RVT
[2018-05-13 15:55] VITALS: BP 108/61; PULSE 102; RESP 16; TEMP 35.6; O2SAT 98
[2018-05-13 18:56] VITALS: PULSE 95; RESP 24
[2018-05-13] MEDS: traZODone 50 MG Tablet 150 MG PO (21:18)
[2018-05-13] MEDS: Atorvastatin Calcium 20 MG Tablet PO (21:20)
[2018-05-14] MEDS: clonazePAM 1 MG Tablet PO ×2 (00:15→21:01)
[2018-05-14] MEDS: Menthol/Lanolin/Calamine/Znox 113 GM Tube 1 APPLIC TOPICAL ×2 (06:16→20:03)
[2018-05-14] MEDS: Furosemide 20 MG Tablet PO (06:17)
[2018-05-14] MEDS: Enoxaparin 120 MG/0.8 ML Syringe SC (06:17)
[2018-05-14] MEDS: Anastrozole 1 MG Tablet PO (06:17)
[2018-05-14] MEDS: Spironolactone 25 MG Tablet PO (06:17)
[2018-05-14] MEDS: Amox/Clavulanate 875 MG Tablet PO ×2 (06:17→17:17)
[2018-05-14] MEDS: Levothyroxine 112 MCG Tablet PO (06:18)
[2018-05-14] MEDS: buPROPion (XL) 150 MG TABLET.XL PO (06:18)
[2018-05-14] MEDS: Nystatin Powder 15gm Bottle 1 APPLIC TOPICAL ×2 (06:18→17:18)
[2018-05-14 06:51] LABS: Bedside Glucose 145 mg/dL (70-110)
[2018-05-14] MEDS: predniSONE 5 MG Tablet 2.5 MG PO (08:32)
[2018-05-14 15:36] VITALS: BP 116/66; PULSE 98; RESP 18; TEMP 36.9; O2SAT 95
--- NOTE | 2018-05-14 16:11 | PCM.PROGNOTE ---
Patient Problems: Active and Suspected Problems Cellulitis of right lower extremity (Acute) Traumatic hematoma of right foot (Acute) Left ureteral stone (Acute) Subjective: This 77-year-old female with multiple comorbidities was seen bedside this afternoon for right foot incision and drainage of an infected hematoma. She denies foot pain, fever, chill, nausea, vomiting, loss of appetite, chest pain, shortness of breath. Her is bedside. - Physical Exam General: Alert, Oriented x3, Cooperative HEENT: Atraumatic Extremities: No cyanosis, Capillary Refill Less than 3 Seconds - All digits right foot, No Calf Tenderness - Bilateral negative Stevie and West signs, Diminished Peripheral Pulses - Palpable DP pulse, Edema - Right lower extremity foot Skin: Ulcer/ Wound - Serosanguineous draining incision and drainage site to the dorsal right foot with a length of 2.5 cm, width of 1.0 cm, and depth of 1.3 cm that is mobile with deeper exposed viable tendon and subcutaneous tissue. There is no necrosis, erythema, purulence, odor, exposed bone, or acute infection or ongoing hematoma formation, - - The peripheral skin is atrophic and hairless to the foot Musculoskeletal: No Tenderness to Palpation of Joints or Extremities, Muscle Wasting, - - Active range of motion digits right foot. Compartments remain soft to palpate to the right lower extremity Neurological: - - Lack of normal epicritic sensation to light touch and procedure right foot Psych/Mental Status: Normal Affect, Appropriate Vital Signs Temp Pulse Resp BP Pulse Ox 98.5 F 98 18 116/66 95 05/14/18 15:36 05/14/18 15:36 05/14/18 15:36 05/14/18 15:36 05/14/18 15:36 Oxygen Flow Rate (L/min) 3 Oxygen Delivery Method Room Air Weight: 119.5 kg Body Mass Index (BMI) 43.8 Finger Stick Blood Glucose 155 Intake and Output for Last 24 Hours 05/12/18 05/13/18 05/14/18 23:59 23:59 23:59 Intake Total 360 / 360 720 / 720 600 / 600 Balance 360 / 360 720 / 720 600 / 600 POC Glucose 05/14/18 06:25 POC Glucose 145 H Medical Necessity - Tobacco Use Smoking Status: Never smoker Tobacco Use: Non-smoker Assessment/Plan All Active Problems 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) Cellulitis of right lower extremity (Acute) Traumatic hematoma of right foot (Acute) Left ureteral stone (Acute) Contusion with hematoma formation dorsal right foot w/ associated cellulitis s/p I+D on 05/05/18 - doing well Cellulitis left leg - resolved Diabetes There has been continued improvement to the right foot with I+D procedure from 05/05/18, patient remains afebrile, no leukocytosis noted from labwork on 05/11. Due to clinical systemic and local improvement, I recommend delayed primary closure procedure performed today bedside. Verbal consent was obtained after we discussed the indication, purpose, benefits, risks, and anticipated healing time and management. 4 cc of 1% lidocaine plain was administered in a local infiltrative manner to the right foot to achieve anesthesia. Wound margins and bed was debrided with a 3 mm curette and minimal controlled hematogenous drainage was noted. Pressure was applied to maintain hemostasis. Betadine preparation was performed to the procedure site and 3-0 nylon was utilized to reapproximate the skin utilizing horizontal and vertical mattress technique. Hemostasis was considered controlled and a postprocedure dressing consisting of Betadine soaked gauze, Kerlix, and Bharath wrap was applied. To keep the site clean, dry, and intact. I recommend this is changed with nursing staff in 3 days. Ok to proceed with full weightbearing right foot in surgical shoe in a limited manner. To avoid tight strap placement over the drainage/delayed closure site to dorsal forefoot. Otherwise keep foot elevated as much as possible, and keep heels offloaded. To wear bharath wraps to reduce edema. Local infection signs are not noted; additional antibiotics are not recommended. To continue proper glycemic control and nutritional supplementation to optimize healing. Podiatry will continue to follow once tweekly while in the TCU. The anticipated healing time and management were discussed in detail. Medical management per primary team is appreciated. Please call/page us sooner if needed for questions. Candace Patel DPM, [facility] [phone]
[2018-05-14] MEDS: Senna/Docusate Sodium 1 Tablet PO (17:18)
--- NOTE | 2018-05-14 18:33 | NURSING ---
Pt with cough pt isolated resp panel ordered.
[2018-05-14] MEDS: traZODone 50 MG Tablet 150 MG PO (19:58)
[2018-05-14] MEDS: Atorvastatin Calcium 20 MG Tablet PO (19:59)
[2018-05-14 20:05] VITALS: RESP 15
--- NOTE | 2018-05-15 00:37 | NURSING ---
All care is provided to patient in room, patient is in droplet precautions pending respiratory panel.
[2018-05-15] MEDS: Levothyroxine 112 MCG Tablet PO (05:38)
[2018-05-15] MEDS: Furosemide 20 MG Tablet PO (05:38)
[2018-05-15] MEDS: Amox/Clavulanate 875 MG Tablet PO ×2 (05:38→16:56)
[2018-05-15] MEDS: Spironolactone 25 MG Tablet PO (05:38)
[2018-05-15] MEDS: Anastrozole 1 MG Tablet PO (05:38)
[2018-05-15] MEDS: buPROPion (XL) 150 MG TABLET.XL PO (05:38)
[2018-05-15] MEDS: Menthol/Lanolin/Calamine/Znox 113 GM Tube 1 APPLIC TOPICAL ×2 (05:39→21:14)
[2018-05-15] MEDS: Enoxaparin 120 MG/0.8 ML Syringe SC (05:39)
[2018-05-15] MEDS: Senna/Docusate Sodium 1 Tablet PO ×2 (05:39→16:56)
[2018-05-15] MEDS: Nystatin Powder 15gm Bottle 1 APPLIC TOPICAL ×2 (05:41→16:55)
[2018-05-15 06:05] LABS: International Normalized Ratio 1.6; Prothrombin Time (Protime)PT. 19.3 SECONDS (11.7-14.9)
[2018-05-15 06:56] LABS: Bedside Glucose 128 mg/dL (70-110)
--- NOTE | 2018-05-15 12:04 | CASEMGMT ---
Insurance Clinical information sent. Pending continued stay approval. Auth#[id number] Guru LATHAM, DESMOND
--- NOTE | 2018-05-15 12:46 | NURSING ---
Pt remains in isolation this shift, resp panel still pending at this time, all care and therapy provided in room
--- NOTE | 2018-05-15 14:21 | CASEMGMT ---
Insurance Continued stay approved with next update due on 05/17/18. Auth#[id number] Guru LATHAM, DESMOND
--- NOTE | 2018-05-15 14:42 | CASEMGMT ---
Brief interview for mental status (BIMS) and resident mood interview (PHQ-9) completed on this day. BIMS score 15. PHQ-9 score 05/24
--- NOTE | 2018-05-15 14:48 | CASEMGMT ---
Social Work Reviewed resident chart. POA documents already placed on resident hard chart and it was noted that Living Will information is addressed in the Health Care Power of claims attorney document. Guru LATHAM, DESMOND
[2018-05-15 15:26] VITALS: BP 141/87; PULSE 97; RESP 18; TEMP 35.8; O2SAT 98
--- NOTE | 2018-05-15 15:39 | NURSING ---
Dr Patel had been in to see patient this weekend and sutured the wound to the right dorsal foot. dressing is to remain in place until 05/17/18. will reassess at that time. pt is now able to be full weight bearing on the right foot according to orders. will continue to follow.
[2018-05-15 19:30] VITALS: PULSE 91; RESP 18
[2018-05-15] MEDS: Ipratropium/Albuterol Sulfate 3 ML AMPUL.NEB INHALATION (19:30)
[2018-05-15] MEDS: traZODone 50 MG Tablet 150 MG PO (21:05)
[2018-05-15] MEDS: Atorvastatin Calcium 20 MG Tablet PO (21:05)
[2018-05-15] MEDS: Acetaminophen 500 MG Tablet 1000 MG PO (21:08)
[2018-05-16] MEDS: Levothyroxine 112 MCG Tablet PO (05:30)
[2018-05-16] MEDS: Nystatin Powder 15gm Bottle 1 APPLIC TOPICAL ×2 (05:31→17:53)
[2018-05-16] MEDS: Menthol/Lanolin/Calamine/Znox 113 GM Tube 1 APPLIC TOPICAL ×2 (05:31→19:36)
--- NOTE | 2018-05-16 05:32 | NURSING ---
When entering pts room to give 0600 meds, pt stated who even decided to give them at this time. Pt requesting meds to be given later this morning with breakfast.
[2018-05-16 06:51] LABS: Bedside Glucose 121 mg/dL (70-110)
[2018-05-16 06:58] VITALS: O2SAT 95
[2018-05-16] MEDS: Ipratropium/Albuterol Sulfate 3 ML AMPUL.NEB INHALATION (06:58)
[2018-05-16 06:59] VITALS: PULSE 93; RESP 20
[2018-05-16] MEDS: Amox/Clavulanate 875 MG Tablet PO ×2 (08:29→17:50)
[2018-05-16] MEDS: Spironolactone 25 MG Tablet PO (08:29)
[2018-05-16] MEDS: Polyethylene Glycol 3350 17 GM PACKET PO (08:29)
[2018-05-16] MEDS: Anastrozole 1 MG Tablet PO (08:29)
[2018-05-16] MEDS: buPROPion (XL) 150 MG TABLET.XL PO (08:29)
[2018-05-16] MEDS: Senna/Docusate Sodium 1 Tablet PO ×3 (08:29→17:51)
[2018-05-16] MEDS: Furosemide 20 MG Tablet PO (08:29)
[2018-05-16] MEDS: Enoxaparin 120 MG/0.8 ML Syringe SC (08:30)
[2018-05-16] MEDS: predniSONE 5 MG Tablet 2.5 MG PO (13:28)
[2018-05-16 15:41] VITALS: BP 111/69; PULSE 103; RESP 18; TEMP 35.6; O2SAT 97
[2018-05-16] MEDS: Atorvastatin Calcium 20 MG Tablet PO (19:42)
[2018-05-16] MEDS: traZODone 50 MG Tablet 150 MG PO (19:42)
[2018-05-16] MEDS: clonazePAM 1 MG Tablet PO (20:52)
[2018-05-16] MEDS: Acetaminophen 500 MG Tablet 1000 MG PO (20:52)
--- NOTE | 2018-05-16 21:24 | PN_ITS ---
Subjective: Resident seen in room, sitting in recliner. She has questions regarding her anticoagulation. She has history of DVT/PE, and is on chronic anticoagulation. Dr. Estes planning on removing left ureteral stent 05/20/2018, and her warfarin has been held. She is currently on Lovenox 120MG SC daily, and at home she was on 80MG SC Q12H. I explained to her the Lovenox is 120MG daily because dose was adjusted for her kidney function, and the Lovenox will cover her for DVT/PE while she is on off coumadin, and once urologic procedure done, will restart both Lovenox and coumadin together, then stop Lovenox once her INR is therapeutic between 2-3. She understood my explanation and was happy and reassured. Vitals/I&O's: Vital Signs Temp Pulse Resp BP Pulse Ox 96.0 F L 103 H 18 111/69 97 05/16/18 15:41 05/16/18 15:41 05/16/18 15:41 05/16/18 15:41 05/16/18 15:41 Oxygen Flow Rate (L/min) 3 Oxygen Delivery Method Room Air Weight: 118.529 kg Body Mass Index (BMI) 43.8 Finger Stick Blood Glucose 155 Intake and Output for Last 24 Hours 05/14/18 05/15/18 05/16/18 23:59 23:59 23:59 Intake Total 840 / 840 960 / 960 840 / 840 Balance 840 / 840 960 / 960 840 / 840 Microbiology Past 72 Hours 05/14/18 19:55 Mucosa - Nasopharyngeal Respiratory Panel (PCR) - Final Laboratory Results 05/16/18 06:27: POC Glucose 121 H 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, left (Chronic) Obesity (Chronic) Osteoarthritis (Chronic) Hyperlipidemia (Chronic) Hypertension (Chronic) Diabetes mellitus type 2 in obese (Chronic) Pulmonary embolism (Chronic) Metastatic breast cancer (Chronic) Restless leg syndrome (Chronic) Hypercoagulable state (Chronic) Hypothyroidism (Chronic) Obstructive sleep apnea (Chronic) History of pulmonary embolism (Chronic) Allergies acetaminophen [From Vicodin] Allergy (Verified 05/04/18 12:35) Unknown codeine Allergy (Verified 05/04/18 12:35) Unknown hydrocodone bitartrate [From Vicodin] Allergy (Verified 05/04/18 12:35) Unknown Home Medications: Ambulatory Orders Medication Instructions Recorded Levothyroxine [Synthroid] 112 mcg PO DAILY 01/24/14 Simvastatin [Zocor] 40 mg PO QHS 01/24/14 Anastrozole [Arimidex] 1 mg PO DAILY 03/17/15 traZODone [Desyrel] 150 mg PO QHS 05/07/16 Clonazepam [Klonopin] 1 mg PO DAILY PRN PRN #30 tablet 06/09/16 Bupropion HCl [Bupropion Xl] 150 mg PO DAILY 04/22/18 Prednisone 2.5 mg PO QODAY 04/22/18 Budesonide 2 ml INHALATION BID 05/04/18 Fluticasone Furoate [Arnuity 1 puff INHALATION DAILY 05/04/18 Ellipta] Furosemide [Lasix] 20 mg PO DAILY 05/04/18 Warfarin Sodium 1.5 mg PO MOFR 05/04/18 Warfarin Sodium 3 mg PO SUTUWETHSA 05/04/18 Acetaminophen [Tylenol Tablet] 650 mg PO Q6H PRN PRN tablet 05/09/18 Glucagon 1 mg IM .X1 PRN syringe 05/09/18 Magnesium Hydroxide [Milk Of 30 ml PO DAILY PRN PRN udc 05/09/18 Magnesia] Amox/Clavulanate Tablet [Augmentin 875 mg PO BID 05/10/18 Tablet] Insulin Lispro [Humalog KwikPen] See Protocol SQ ACHS 05/10/18 Ipratropium/Albuterol Sulfate 3 ml INHALATION Q6H.RT 05/10/18 [Duoneb] Nystatin Powder [Mycostatin Powder] 1 applic TOPICAL BID 05/10/18 Spironolactone [Aldactone] 25 mg PO DAILY 05/10/18 Surgical History: cholecystectomy, total hip arthroplasty - Bilateral., total knee arthroplasty - Bilateral., tonsillectomy, - - ORIF right ankle fracture, Tubal ligation. Psychiatric History: Anxiety, Depression DATA TECHNICAL LEAD History: No pertinent DATA TECHNICAL LEAD history Lives: Spouse/ Significant Other Smoking Status: Never smoker Tobacco Use: Non-smoker Alcohol: None Drugs: None - *Family History Maternal History Items: No pertinent history Paternal History Items: Heart Disease Review of Systems Constitutional: Denies: Chills, Fever, Weight Change HEENT: Denies: Head Aches, Sinus Congestion, Sinus Drainage Cardiovascular: Denies: Chest Pain, Palpitations Respiratory: Denies: Cough, Shortness of breath at rest, Sputum production Gastrointestinal: Denies: Abdominal Pain, Nausea, Vomiting Genitourinary: Denies: Dysuria Musculoskeletal: Denies: Joint Pain, Joint Tenderness Skin: Denies: Rash, Wounds Neurological: Denies: Numbness, Tingling, Focal weakness Psychiatric: Denies: Anxiety, Depression, Homicidal Ideations, Suicidal Ideations Hematologic/ Lymphatic: Denies: Easy Bruising, Easy Bleeding Patient Problems: Active and Suspected Problems Wound of right foot (Acute) Cellulitis of right lower extremity (Acute) Traumatic hematoma of right foot (Acute) Left ureteral stone (Acute) - Physical Exam General: Alert, Oriented x3, Cooperative HEENT: Atraumatic, PERRLA, EOMI, Normocephalic Neck: Supple, No JVD, Negative Carotid Bruits Lungs: Clear to auscultation, Normal air movement Cardiovascular: Regular rate, No murmurs Abdomen: Bowel Sounds Present, Soft, Non Tender Extremities: No edema, Capillary Refill Less than 3 Seconds Skin: No rashes, No breakdown Musculoskeletal: No Tenderness to Palpation of Joints or Extremities Neurological: Cranial nerves II-XII grossly intact Psych/Mental Status: Normal Affect, Appropriate Vital Signs Temp Pulse Resp BP Pulse Ox 96.0 F L 103 H 18 111/69 97 05/16/18 15:41 05/16/18 15:41 05/16/18 15:41 05/16/18 15:41 05/16/18 15:41 Oxygen Flow Rate (L/min) 3 Oxygen Delivery Method Room Air Weight: 118.529 kg Body Mass Index (BMI) 43.8 Finger Stick Blood Glucose 155 Intake and Output for Last 24 Hours 05/14/18 05/15/18 05/16/18 23:59 23:59 23:59 Intake Total 840 / 840 960 / 960 840 / 840 Balance 840 / 840 960 / 960 840 / 840 Microbiology Past 72 Hours 05/14/18 19:55 Respiratory Panel (PCR) - Final Mucosa - Nasopharyngeal POC Glucose 05/16/18 06:27 POC Glucose 121 H Assessment/Plan All Active Problems Wound of right foot (Acute) 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) Cellulitis of right lower extremity (Acute) Traumatic hematoma of right foot (Acute) Left ureteral stone (Acute) 77 year old female with below past medical history hospitalized for infected right foot hematoma requiring incision and drainage 05/05/[address] Winston, complicated by left knee pain, ruled out for septic prosthetic knee by Dr. Martinez, complicated by recent left ureteral stent placement for left kidney stone, admitted to TCU with debility, here for rehabilitation, strengthening, wound care, prior to discharge home with spouse. * DVT/PE - Warfarin on hold, Lovenox 120MG SC Q24H (renal dose), will restart warfarin, Lovenox after urologic procedure and stop Lovenox once warfarin therapeutic with INR between 2 to 3. * Left kidney stone - Dr. Estes planning left ureteral stent removal 05/20/2018, NPO orders entered.
--- NOTE | 2018-05-17 00:35 | NURSING ---
Pt concerned about anticoagulant therapy, Dr Sandoval into speak with pt this evening.
[2018-05-17] MEDS: Levothyroxine 112 MCG Tablet PO (05:26)
[2018-05-17] MEDS: Spironolactone 25 MG Tablet PO (05:26)
[2018-05-17] MEDS: Menthol/Lanolin/Calamine/Znox 113 GM Tube 1 APPLIC TOPICAL ×2 (05:30→21:10)
[2018-05-17 06:51] LABS: Bedside Glucose 132 mg/dL (70-110)
[2018-05-17] MEDS: Senna/Docusate Sodium 1 Tablet PO ×2 (09:29→17:39)
[2018-05-17] MEDS: Polyethylene Glycol 3350 17 GM PACKET PO (09:29)
[2018-05-17] MEDS: buPROPion (XL) 150 MG TABLET.XL PO (09:29)
[2018-05-17] MEDS: Furosemide 20 MG Tablet PO (09:29)
[2018-05-17] MEDS: Amox/Clavulanate 875 MG Tablet PO ×2 (09:29→17:39)
[2018-05-17] MEDS: Anastrozole 1 MG Tablet PO (09:30)
[2018-05-17] MEDS: Enoxaparin 120 MG/0.8 ML Syringe SC (09:30)
[2018-05-17] MEDS: Nystatin Powder 15gm Bottle 1 APPLIC TOPICAL ×2 (09:32→17:40)
--- NOTE | 2018-05-17 11:07 | CASEMGMT ---
Plan of care meeting held. Resident present as well as resident family. Resident plans to discharge to home with spouse at time of discharge. Resident has no discharge date set at this time. Resident to continue with further care and treatment on the Transitional Care Unit. Resident with an insurance update due on this day and aware that continued stay approval is not guaranteed. Support given. Will continue to follow. Guru LATHAM, DESMOND
--- NOTE | 2018-05-17 11:10 | PCM.PROGNOTE ---
Patient Problems: Active and Suspected Problems Wound of right foot (Acute) Cellulitis of right lower extremity (Acute) Traumatic hematoma of right foot (Acute) Left ureteral stone (Acute) Subjective: This 77-year-old female with multiple comorbidities was seen bedside today for following right foot incision and drainage of an infected hematoma by Dr. Winston and then a delayed primary closure by Dr. Patel this past Tuesday. She continues to deny foot pain, fever, chill, nausea, vomiting, loss of appetite, chest pain, shortness of breath. Her is bedside again today. - Physical Exam General: Alert, Oriented x3, Cooperative Extremities: Capillary Refill Less than 3 Seconds - to distal digits, No Calf Tenderness - negative robin and brambila signs, - - Pulses not palpated today due to dressing being intact Skin: - - Dressing change had just been performed prior to my arrival. Discussed case with nurse who said the sutures were still well intact with no dehiscence noted. She said there was no erythema, no purulence, no increased warmth, and continued improved edema. She said there were no signs of infection appreciated. Musculoskeletal: - - Active range of motion digits right foot. Neurological: - - lack of epicritic sensation to lower extremity Psych/Mental Status: Normal Affect, Appropriate Vital Signs Temp Pulse Resp BP Pulse Ox 96.0 F L 103 H 18 111/69 97 05/16/18 15:41 05/16/18 15:41 05/16/18 15:41 05/16/18 15:41 05/16/18 15:41 Oxygen Flow Rate (L/min) 3 Oxygen Delivery Method Room Air Weight: 118.529 kg Body Mass Index (BMI) 43.8 Finger Stick Blood Glucose 155 Intake and Output for Last 24 Hours 05/15/18 05/16/18 05/17/18 23:59 23:59 23:59 Intake Total 960 / 960 840 / 840 360 / 360 Balance 960 / 960 840 / 840 360 / 360 Microbiology Past 72 Hours 05/14/18 19:55 Respiratory Panel (PCR) - Final Mucosa - Nasopharyngeal POC Glucose 05/17/18 06:28 POC Glucose 132 H Medical Necessity - Tobacco Use Smoking Status: Never smoker Tobacco Use: Non-smoker Assessment/Plan All Active Problems Wound of right foot (Acute) 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) Cellulitis of right lower extremity (Acute) Traumatic hematoma of right foot (Acute) Left ureteral stone (Acute) Contusion with hematoma formation dorsal right foot w/ associated cellulitis s/p I+D on 05/05/18 Delayed primary closure 05/14 Cellulitis left leg - resolved Diabetes Patient was examined resting bedside today with her by her side in the room. Patient is S/P I&D to dorsal right foot hematoma on 05/05/18 and bedside delayed primary closure on 05/14. Patient feels well and has no new complaints today. Her dressing had just been changed prior to my arrival today, so this was not taken back down. Discussed the case with patient's nurse who had just changed the dressing who states the sutures are still all intact and the edges are still coapted together with no dehiscence noted. She said there was no purulence, no malodor, no cellulitis, or any other signs of infection. Patient is to have daily dressing changes by nursing staff consisting of betadine to the suture site, followed by gauze, kerlix, and OLEGARIO bandage. Patient continued to be okay to proceed with full weightbearing right foot in surgical shoe in a limited manner as she has been doing. To avoid tight strap placement over the drainage/delayed closure site to dorsal forefoot. Continue to keep foot elevated as much as possible, and keep heels offloaded at all times. Continue with olegario wraps to reduce edema. Podiatry will continue to follow this patient.
--- NOTE | 2018-05-17 11:50 | CASEMGMT ---
Insurance Clinical information faxed. Pending continued stay approval. Auth#[id number] Guru LATHAM, DESMOND
[2018-05-17 15:57] VITALS: BP 116/71; PULSE 93; RESP 16; TEMP 35.4; O2SAT 98
[2018-05-17] MEDS: Atorvastatin Calcium 20 MG Tablet PO (21:10)
[2018-05-17] MEDS: traZODone 50 MG Tablet 150 MG PO (21:10)
[2018-05-17] MEDS: clonazePAM 1 MG Tablet PO (21:13)
[2018-05-17] MEDS: Acetaminophen 500 MG Tablet 1000 MG PO (22:06)
[2018-05-18 05:52] LABS: International Normalized Ratio 1.4; Prothrombin Time (Protime)PT. 16.8 SECONDS (11.7-14.9)
[2018-05-18 06:20] LABS: Anion Gap 8 (5-15); BUN 46 mg/dL (7-18); BUN/Creat Ratio 27.9 RATIO (10-20); Chloride 105 mmol/L (98-107); Creatinine, Serum 1.65 mg/dL (0.55-1.02); EST Glomerular Filtration Rate 32 mL/min (>60); Est Glom Filt Rate - Afr Amer 39 mL/min (>60); Estimated Creatinine Clearance 26.51 ml/min; Glucose 142 mg/dL (74-106); Sodium Level 139 mmol/L (136-145)
[2018-05-18 06:21] LABS: Hematocrit 32.3 % (37-47); Hemoglobin 9.6 g/dl (12.0-15.0); Mean Corp Hgb Conc 29.7 g/gl (32-36); Mean Corpuscular Hgb 27.4 pg (27.0-32.0); Mean Corpuscular Volume 92.3 fL (81-99); Mean Platelet Vol. 8.8 fl (6.2-12.0); Platelet Count 304 K/mm3 (150-450); RBC Distribution Width CV 15.8 % (11.6-14.6); RBC Distribution Width SD 50.5 fl (35.1-43.9); White Blood Count 8.2 K/mm3 (4.4-11.0)
[2018-05-18 06:23] LABS: Differential Indicated MANUAL DIFF; POSITIVE COUNT YES; POSITIVE DIFFERENTIAL NO; POSITIVE MORPHOLOGY YES
[2018-05-18] MEDS: Levothyroxine 112 MCG Tablet PO (06:23)
[2018-05-18] MEDS: Menthol/Lanolin/Calamine/Znox 113 GM Tube 1 APPLIC TOPICAL ×2 (06:24→21:26)
[2018-05-18 06:46] VITALS: O2SAT 96
[2018-05-18 06:56] LABS: Bedside Glucose 131 mg/dL (70-110)
[2018-05-18 07:16] LABS: Eosinophil 4 % (0-5); Lymphocyte 17 % (19-41); Metamyelocyte 1 % (0-1); Monocyte 7 % (0-10); Neutrophil-Band 2 % (0-5); Neutrophil-Segmented 69 % (47-70); Total Cells Counted 100 (MANUAL DIFF)
[2018-05-18 07:17] LABS: Anisocytosis 1+; Hypochromasia 1+; Microcytosis 1+; Platelet Estimate ADEQUATE (ADEQ); Polychromasia 1+
[2018-05-18 07:18] LABS: Absolute Lymphocyte Count 1.39 X10^3/ul (0.83-4.51); Absolute Neutrophil Count 5.8 X10^3/uL (2.0-7.7)
[2018-05-18] MEDS: buPROPion (XL) 150 MG TABLET.XL PO (10:05)
[2018-05-18] MEDS: predniSONE 5 MG Tablet 2.5 MG PO (10:05)
[2018-05-18] MEDS: Polyethylene Glycol 3350 17 GM PACKET PO (10:06)
[2018-05-18] MEDS: Amox/Clavulanate 875 MG Tablet PO ×2 (10:06→17:32)
[2018-05-18] MEDS: Anastrozole 1 MG Tablet PO (10:06)
[2018-05-18] MEDS: Spironolactone 25 MG Tablet PO (10:06)
[2018-05-18] MEDS: Furosemide 20 MG Tablet PO (10:06)
[2018-05-18] MEDS: Senna/Docusate Sodium 1 Tablet PO ×2 (10:06→17:32)
[2018-05-18] MEDS: Tuberculin,Purif.prot.deriv. 50 TU/ML Vial 5 ML ID (11:23)
--- NOTE | 2018-05-18 13:19 | CASEMGMT ---
Insurance Continued stay denied with last cover day being 05/21/18 and resident to discharge or financial responsibility to begin on 05/22/18. Auth#[id number] Guru LATHAM, DESMOND
[2018-05-18 13:38] LABS: Pathologist Review Reviewed
--- NOTE | 2018-05-18 13:51 | CASEMGMT ---
Reviewed and approved social work student M[employer] documentation on this day. Guru LATHAM, DESMOND
--- NOTE | 2018-05-18 14:22 | CASEMGMT ---
Addendum entered by Kelli Colin 05/18/18 14:39: Reviewed and approved social work student documentation. Guru Colin PAINTING SUPERVISOR, CUT OUT MARKER Original Note: Social work Explained insurance cut letter with last covered day of 05/21/18 with a discharge date on 05/22/18. Resident is agreeable to discharge date, but possibly wants to leave sooner. Resident wants to follow up after her outpatient procedure on 05/19/18. Resident's in room and agreeable as well. Resident plans to discharge home with . shelter recommending continued services in the home. printed circuit board reworker will continue to follow. Discharge date: 05/22/18 Discharge plan: home with Claribel Todd social work student
[2018-05-18 15:26] VITALS: BP 132/76; PULSE 103; RESP 20; TEMP 36.3; O2SAT 97
[2018-05-18] MEDS: Nystatin Powder 15gm Bottle 1 APPLIC TOPICAL (17:36)
[2018-05-18] MEDS: traZODone 50 MG Tablet 150 MG PO (21:27)
[2018-05-18] MEDS: Acetaminophen 500 MG Tablet 1000 MG PO (21:27)
[2018-05-18] MEDS: Atorvastatin Calcium 20 MG Tablet PO (21:27)
[2018-05-18] MEDS: clonazePAM 1 MG Tablet PO (21:27)
--- NOTE | 2018-05-18 21:55 | DCINST_ITS ---
- Discharge Diagnoses Current Active Problems: Current Active and Chronic Problems Wound of right foot (Acute) Cellulitis of right lower extremity (Acute) Traumatic hematoma of right foot (Acute) Left ureteral stone (Acute) Diabetes mellitus (Chronic) Insomnia (Chronic) Anxiety (Chronic) Depression (Chronic) Chronic obstructive pulmonary disease (Chronic) You will use the following diet at home:: No restrictions, Regular Your food should be the consistency of: Regular Your liquids should be the consistency of: Regular/Thin Discharge Activity: Return to Normal Activity, May Shower, Use Walker Weight Bearing Status: No weight bearing - Right lower extremity. Keep extremity elevated above heart level: Operative Extremity, Right Leg Call your doctor if you observe: Fever of 101 or Higher, Inability to urinate, Inability to have a bowel movement, Shortness of breath, Chest pain, Uncontrolled pain Allergies/Adverse Reactions: Allergies acetaminophen [From Vicodin] Allergy (Verified 05/04/18 12:35) Unknown codeine Allergy (Verified 05/04/18 12:35) Unknown hydrocodone bitartrate [From Vicodin] Allergy (Verified 05/04/18 12:35) Unknown Medications to take at Discharge Levothyroxine [Synthroid] 112 mcg PO DAILY 01/24/14 Simvastatin [Zocor] 40 mg PO QHS 01/24/14 Anastrozole [Arimidex] 1 mg PO DAILY 03/17/15 traZODone [Desyrel] 150 mg PO QHS 05/07/16 Clonazepam [Klonopin] 1 mg PO DAILY PRN PRN #30 tablet 06/09/16 Bupropion HCl [Bupropion Xl] 150 mg PO DAILY 04/22/18 Prednisone 2.5 mg PO QODAY 04/22/18 Fluticasone Furoate [Arnuity Ellipta] 1 puff INHALATION DAILY 05/04/18 Furosemide [Lasix] 20 mg PO DAILY 05/04/18 Warfarin Sodium 1.5 mg PO MOFR 05/04/18 Warfarin Sodium 3 mg PO SUTUWETHSA 05/04/18 Nystatin Powder [Mycostatin Powder] 1 applic TOPICAL BID 05/10/18 Spironolactone [Aldactone] 25 mg PO DAILY 05/10/18 Acetaminophen [Tylenol] 1,000 mg PO Q6H PRN PRN tablet 05/18/18 Albuterol Inhaler [Ventolin Hfa] 2 puff INHALATION Q6HWA.RT inhaler 05/18/18 Budesonide Aerosol [Pulmicort Respules] 0.5 mg INHALATION BID.RT ampul.neb. 05/18/18 Enoxaparin Sodium [Lovenox] 120 mg SQ DAILY #30 syringe 05/18/18 Menthol/Lanolin/Calamine/Znox [Calmoseptine Ointment] 1 applic TOPICAL 0600,2200 tube 05/18/18 Mineral Oil/Petrolatum,White [Eucerin] 1 applic TOPICAL 2200 jar 05/18/18 Nutritional Supplement [Yannick - ORANGE FLAVOR] 1 packet PO BIDCM #60 packet 05/18/18 traMADol [Ultram] 50 mg PO Q6H PRN PRN tablet 05/18/18 The following prescriptions were given: Enoxaparin Sodium [Lovenox] 120 mg SQ DAILY #30 syringe Nutritional Supplement [Yannick - ORANGE FLAVOR] 1 packet PO BIDCM #60 packet Orders to be completed after discharge: Prothrombin Time w/INR Time Frame: 1 Day, Location: Laboratory Primary Care Physician: Ai Anguiano MD [Primary Care Provider] - Please follow up with your Primary Care Physician in: 1 week. Test Results: Test results from this visit will be discussed in further detail at your follow- up appointment, if applicable. Please Follow Up With: [facility] When: 1 week. Proposed Discharge Date: 05/22/18
--- NOTE | 2018-05-18 21:55 | PCM.DC.SUM ---
Discharge Date and Diagnosis - Problem List Patient Problems: Active and Suspected Problems Wound of right foot (Acute) Cellulitis of right lower extremity (Acute) Traumatic hematoma of right foot (Acute) Left ureteral stone (Acute) Date of Admission: 05/10/18 Date of Discharge: 05/22/18 - Primary Discharge Diagnosis Active and Suspected Problems Wound of right foot (Acute) Cellulitis of right lower extremity (Acute) Traumatic hematoma of right foot (Acute) Left ureteral stone (Acute) - Secondary Discharge Diagnosis Chronic Problems Diabetes mellitus (Chronic) Insomnia (Chronic) Anxiety (Chronic) Depression (Chronic) Chronic obstructive pulmonary disease (Chronic) 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, left (Chronic) Obesity (Chronic) Osteoarthritis (Chronic) Hyperlipidemia (Chronic) Hypertension (Chronic) Diabetes mellitus type 2 in obese (Chronic) Pulmonary embolism (Chronic) Metastatic breast cancer (Chronic) Restless leg syndrome (Chronic) Hypercoagulable state (Chronic) Hypothyroidism (Chronic) Obstructive sleep apnea (Chronic) History of pulmonary embolism (Chronic) Hospital Course and Treatment Imaging Results: 05/10/18 15:24 Diet: Cardiac: Calorie-Controlled Is pt able to select menu?: Yes How many daily calories?: 1800 calorie 05/19/18 00:00 NPO [Diet: Nothing Per Oral] Is pt able to select menu?: Yes Labs (Last 48 Hours) 05/17/18 05/18/18 05/18/18 06:28 05:20 05:20 WBC 8.2 RBC 3.50 L Hgb 9.6 L Hct 32.3 L MCV 92.3 MCH 27.4 MCHC 29.7 L RDW 15.8 H RDW Differential 50.5 H Plt Count 304 MPV 8.8 Neut % (Auto) Not Reportable Absolute Neuts (auto) 5.8 Absolute Lymphs (auto) 1.39 Total Counted 100 Neutrophils % (Manual) 69 Band Neutrophils % 2 Lymphocytes % (Manual) 17 L Monocytes % (Manual) 7 Eosinophils % (Manual) 4 Metamyelocytes % 1 Diff Path Review Reviewed Platelet Estimate ADEQUATE Polychromasia 1+ Hypochromasia 1+ Anisocytosis 1+ Microcytosis 1+ PT INR Sodium 139 Potassium 4.0 Chloride 105 Carbon Dioxide 26.0 Anion Gap 8 BUN 46 H Creatinine 1.65 H Estim Creat Clear Calc 26.51 Est GFR (MDRD) Af Amer 39 L Est GFR (MDRD) Non-Af 32 L BUN/Creatinine Ratio 27.9 H Glucose 142 H Calcium 9.0 POC Glucose 132 H 05/18/18 05/18/18 05:20 06:26 WBC RBC Hgb Hct MCV MCH MCHC RDW RDW Differential Plt Count MPV Neut % (Auto) Absolute Neuts (auto) Absolute Lymphs (auto) Total Counted Neutrophils % (Manual) Band Neutrophils % Lymphocytes % (Manual) Monocytes % (Manual) Eosinophils % (Manual) Metamyelocytes % Diff Path Review Platelet Estimate Polychromasia Hypochromasia Anisocytosis Microcytosis PT 16.8 H INR 1.4 Sodium Potassium Chloride Carbon Dioxide Anion Gap BUN Creatinine Estim Creat Clear Calc Est GFR (MDRD) Af Amer Est GFR (MDRD) Non-Af BUN/Creatinine Ratio Glucose Calcium POC Glucose 131 H Consultations 05/10/18 15:24 Consult: Onc/Wound/power shovel operator helper Routine Comment: Reason for Consult:: RT FOOT INJURY Operations: None, total hip replacement, - Procedures: None Summary of Care Provided: The patient is a 77 year old Female with below past medical history hospitalized for infected right foot hematoma requiring incision and drainage 05/05/[address] Winston, complicated by left knee pain, ruled out for septic prosthetic knee by Dr. Martinez, complicated by recent left ureteral stent placement for left kidney stone, admitted to TCU with debility, here for rehabilitation, strengthening, wound care, prior to discharge home with spouse. 05/19/2018 Dr. Estes lasered left kidney stone, removed left ureteral stent. Discharge home with spouse, and home health care. Patient Problems: Active and Suspected Problems Wound of right foot (Acute) Cellulitis of right lower extremity (Acute) Traumatic hematoma of right foot (Acute) Left ureteral stone (Acute) - Physical Exam Vital Signs Temp Pulse Resp BP Pulse Ox 97.3 F L 103 H 20 H 132/76 H 97 05/18/18 15:26 05/18/18 15:26 05/18/18 15:26 05/18/18 15:26 05/18/18 15:26 Oxygen Flow Rate (L/min) 3 Oxygen Delivery Method Room Air Weight: 118.529 kg Body Mass Index (BMI) 43.8 Finger Stick Blood Glucose 155 Intake and Output for Last 24 Hours 05/16/18 05/17/18 05/18/18 23:59 23:59 23:59 Intake Total 840 / 840 480 / 480 840 / 840 Balance 840 / 840 480 / 480 840 / 840 Laboratory Tests Past 24 Hrs 05/18/18 05/18/18 05/18/18 05:20 05:20 05:20 WBC 8.2 RBC 3.50 L Hgb 9.6 L Hct 32.3 L MCV 92.3 MCH 27.4 MCHC 29.7 L RDW 15.8 H RDW Differential 50.5 H Plt Count 304 MPV 8.8 Neut % (Auto) Not Reportable Absolute Neuts (auto) 5.8 Absolute Lymphs (auto) 1.39 Total Counted 100 Neutrophils % (Manual) 69 Band Neutrophils % 2 Lymphocytes % (Manual) 17 L Monocytes % (Manual) 7 Eosinophils % (Manual) 4 Metamyelocytes % 1 Diff Path Review Reviewed Platelet Estimate ADEQUATE Polychromasia 1+ Hypochromasia 1+ Anisocytosis 1+ Microcytosis 1+ PT 16.8 H INR 1.4 Sodium 139 Potassium 4.0 Chloride 105 Carbon Dioxide 26.0 Anion Gap 8 BUN 46 H Creatinine 1.65 H Estim Creat Clear Calc 26.51 Est GFR (MDRD) Af Amer 39 L Est GFR (MDRD) Non-Af 32 L BUN/Creatinine Ratio 27.9 H Glucose 142 H Calcium 9.0 POC Glucose 05/18/18 06:26 POC Glucose 131 H Discharge Diet: No Restrictions Discharge Activity: Return to Normal Activity, May Shower, Use Walker Weight Bearing Status: No weight bearing - Right lower extremity. Keep extremity elevated above heart level: Operative Extremity, Right Leg Call your doctor if you observe: Fever of 101 or Higher, Inability to urinate, Inability to have a bowel movement, Shortness of breath, Chest pain, Uncontrolled pain Home Medications: Medications to take at Discharge Levothyroxine [Synthroid] 112 mcg PO DAILY 01/24/14 Simvastatin [Zocor] 40 mg PO QHS 01/24/14 Anastrozole [Arimidex] 1 mg PO DAILY 03/17/15 traZODone [Desyrel] 150 mg PO QHS 05/07/16 Clonazepam [Klonopin] 1 mg PO DAILY PRN PRN #30 tablet 06/09/16 Bupropion HCl [Bupropion Xl] 150 mg PO DAILY 04/22/18 Prednisone 2.5 mg PO QODAY 04/22/18 Fluticasone Furoate [Arnuity Ellipta] 1 puff INHALATION DAILY 05/04/18 Furosemide [Lasix] 20 mg PO DAILY 05/04/18 Warfarin Sodium 1.5 mg PO MOFR 05/04/18 Warfarin Sodium 3 mg PO SUTUWETHSA 05/04/18 Nystatin Powder [Mycostatin Powder] 1 applic TOPICAL BID 05/10/18 Spironolactone [Aldactone] 25 mg PO DAILY 05/10/18 Acetaminophen [Tylenol] 1,000 mg PO Q6H PRN PRN tablet 05/18/18 Albuterol Inhaler [Ventolin Hfa] 2 puff INHALATION Q6HWA.RT inhaler 05/18/18 Budesonide Aerosol [Pulmicort Respules] 0.5 mg INHALATION BID.RT ampul.neb. 05/18/18 Enoxaparin Sodium [Lovenox] 120 mg SQ DAILY #30 syringe 05/18/18 Menthol/Lanolin/Calamine/Znox [Calmoseptine Ointment] 1 applic TOPICAL 0600,2200 tube 05/18/18 Mineral Oil/Petrolatum,White [Eucerin] 1 applic TOPICAL 2200 jar 05/18/18 Nutritional Supplement [Yannick - ORANGE FLAVOR] 1 packet PO BIDCM #60 packet 05/18/18 traMADol [Ultram] 50 mg PO Q6H PRN PRN tablet 05/18/18 Following Prescrptions Were Given to Patient: Enoxaparin Sodium [Lovenox] 120 mg SQ DAILY #30 syringe Nutritional Supplement [Yannick - ORANGE FLAVOR] 1 packet PO BIDCM #60 packet Other Amb Orders: Prothrombin Time w/INR Time Frame: 1 Day, Location: Laboratory Primary Care Physician: Ai Anguiano MD [Primary Care Provider] - Please follow up with your Primary Care Physician in: 1 week. Please Follow Up With: [facility] When: 1 week. Disposition: Home with Home Health Minutes spent on discharge:: 35 Patient Condition:: Stable Medical Necessity - Tobacco Use Smoking Status: Never smoker Tobacco Use: Non-smoker Meaningful Use Info Meaningful Use Diagnoses (Choose all that apply): None applicable
--- NOTE | 2018-05-18 21:57 | PCM.PN.HH ---
Home Health Note - Plan Overview of reason of hospitalization: The patient is a 77 year old Female with below past medical history hospitalized for infected right foot hematoma requiring incision and drainage 05/05/[address] Winston, complicated by left knee pain, ruled out for septic prosthetic knee by Dr. Martinez, complicated by recent left ureteral stent placement for left kidney stone, admitted to TCU with debility, here for rehabilitation, strengthening, wound care, prior to discharge home with spouse. 05/19/2018 Dr. Estes lasered left kidney stone, removed left ureteral stent. Discharge home with spouse, and home health care. 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) Cellulitis of right lower extremity (Acute) Traumatic hematoma of right foot (Acute) Left ureteral stone (Acute) Diabetes mellitus (Chronic) Insomnia (Chronic) Anxiety (Chronic) Depression (Chronic) Chronic obstructive pulmonary disease (Chronic) 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, left (Chronic) Obesity (Chronic) Osteoarthritis (Chronic) Hyperlipidemia (Chronic) Hypertension (Chronic) Diabetes mellitus type 2 in obese (Chronic) Pulmonary embolism (Chronic) Metastatic breast cancer (Chronic) Restless leg syndrome (Chronic) Hypercoagulable state (Chronic) Hypothyroidism (Chronic) Obstructive sleep apnea (Chronic) History of pulmonary embolism (Chronic) - Requirements and Reasons Disciplines Needed/Ordered: [facility] Reason for Disciplines: Disease Specific Monitoring/education, Medication Management/Knowledge Deficit, Wound Care Related To: Shortness of Breath with Activity, Unsteady Gait/Balance, Fall Risk Patient is unable to leave the home: Without Aid of Supportive Devices (crutches, cane, wheelchair, walker), Without the assistance of another person
[2018-05-19] MEDS: Levothyroxine 112 MCG Tablet PO (05:53)
[2018-05-19 06:05] LABS: Bedside Glucose 141 mg/dL (70-110)
[2018-05-19 07:05] VITALS: PULSE 77; RESP 18
[2018-05-19] MEDS: Budesonide Respules 0.5 MG/2 ML AMPUL.NEB. INHALATION ×2 (07:59→19:40)
--- NOTE | 2018-05-19 08:50 | NURSING ---
meds on hold at this time d/t surgery, NPO.
--- NOTE | 2018-05-19 11:24 | NURSING ---
pt taken down to surgery at 1015
--- NOTE | 2018-05-19 12:06 | NURSING ---
PACU called, pt will be up shortly. given general anethesia, had cysto ureteroscopy laser w/LT stent removal by Dr Estes
--- NOTE | 2018-05-19 12:35 | NURSING ---
Back in room from PACU. Assisted to bathroom. Hematuria noted at this time. Resident complains of only slight burning with urination. Sleepy and requesting to rest in bed. Lunch ordered at this time. Spouse at bedside and offers support.
[2018-05-19] MEDS: Amox/Clavulanate 875 MG Tablet PO ×2 (12:53→17:35)
[2018-05-19] MEDS: Spironolactone 25 MG Tablet PO (12:53)
[2018-05-19] MEDS: Furosemide 20 MG Tablet PO (12:54)
[2018-05-19] MEDS: Anastrozole 1 MG Tablet PO (12:54)
[2018-05-19] MEDS: Senna/Docusate Sodium 1 Tablet PO ×2 (12:55→17:35)
[2018-05-19] MEDS: buPROPion (XL) 150 MG TABLET.XL PO (12:55)
[2018-05-19 12:56] VITALS: BP 117/58; PULSE 68
--- NOTE | 2018-05-19 13:18 | NURSING ---
Clarified Lovenox and coumadin restart with Dr Estes. Wants coumadin restarted tomorrow, lovenox to restart today.
--- NOTE | 2018-05-19 14:45 | CASEMGMT ---
Social Work Spoke with resident and resident family. Resident requesting for discharge date to be set for 05/21/18, team is agreeable to discharge date change. Resident plans to discharge to home with spouse and home health care through [facility] ([facility] for usp. Resident spouse is teachable for wound care management as well. Resident reporting to have all needed durable medical equipment already set up within the home. Support given. [facility] This socia worker making referral for usp. Order completed. Proposed discharge date: 05/21/18 PLAN: Discharge to home with spouse and home health care. Guru LATHAM, DESMOND
[2018-05-19] MEDS: Enoxaparin 120 MG/0.8 ML Syringe SC (14:49)
--- NOTE | 2018-05-19 15:01 | NURSING ---
wound photo: right dorsal foot
[2018-05-19 15:25] VITALS: BP 156/88; PULSE 66; RESP 18; TEMP 36.6; O2SAT 97
--- NOTE | 2018-05-19 15:35 | CASEMGMT ---
Social Work Elham from [facility] reporting to be unable to accept resident due to not having any openings. Spoke with resident/resident family. Resident agreeable to referral being made to [facility]. Telephone call to Rosangela Tobar. Clinical information sent along with referral made. Rosangela to get back to this socia worker. Proposed discharge date: 05/21/18 PLAN: Discharge to home with spouse and home health care. Guru LATHAM, DESMOND
--- NOTE | 2018-05-19 16:23 | CASEMGMT ---
Social Work Telephone call from [facility] at [facility]. [facility] reporting to be unable to accept resident due to resident wound care not being a skilled need. Spoke with nursing staff. Nursing staff reporting to be able to educated resident spouse on wound care needs. Resident spouse agreeable and aware that there will be no home health nurse. Support provided. Proposed discharge date: 05/21/18 PLAN: Discharge to home with spouse. Guru LATHAM, DESMOND
[2018-05-19] MEDS: Nystatin Powder 15gm Bottle 1 APPLIC TOPICAL (17:36)
[2018-05-19 19:40] VITALS: PULSE 80; RESP 16; O2SAT 96
[2018-05-19] MEDS: Atorvastatin Calcium 20 MG Tablet PO (21:19)
[2018-05-19] MEDS: Menthol/Lanolin/Calamine/Znox 113 GM Tube 1 APPLIC TOPICAL (21:19)
[2018-05-19] MEDS: traZODone 50 MG Tablet 150 MG PO (21:19)
[2018-05-19 23:13] VITALS: RESP 16
[2018-05-20] MEDS: Menthol/Lanolin/Calamine/Znox 113 GM Tube 1 APPLIC TOPICAL ×2 (05:43→21:45)
[2018-05-20] MEDS: Levothyroxine 112 MCG Tablet PO (05:43)
[2018-05-20 07:02] VITALS: PULSE 81; RESP 16
[2018-05-20] MEDS: Budesonide Respules 0.5 MG/2 ML AMPUL.NEB. INHALATION ×2 (07:02→18:31)
[2018-05-20 07:06] LABS: Bedside Glucose 128 mg/dL (70-110)
[2018-05-20] MEDS: Furosemide 20 MG Tablet PO (09:31)
[2018-05-20] MEDS: Polyethylene Glycol 3350 17 GM PACKET PO (09:31)
[2018-05-20] MEDS: buPROPion (XL) 150 MG TABLET.XL PO (09:31)
[2018-05-20] MEDS: Spironolactone 25 MG Tablet PO (09:31)
[2018-05-20] MEDS: Enoxaparin 120 MG/0.8 ML Syringe SC (09:31)
[2018-05-20] MEDS: predniSONE 5 MG Tablet 2.5 MG PO (09:32)
[2018-05-20] MEDS: Amox/Clavulanate 875 MG Tablet PO ×2 (09:32→16:24)
[2018-05-20] MEDS: Anastrozole 1 MG Tablet PO (09:33)
[2018-05-20] MEDS: Nystatin Powder 15gm Bottle 1 APPLIC TOPICAL ×2 (09:35→16:25)
[2018-05-20 14:55] VITALS: BP 135/70; PULSE 85; RESP 18; TEMP 36.9; O2SAT 98
[2018-05-20] MEDS: Senna/Docusate Sodium 1 Tablet PO (16:24)
[2018-05-20 18:31] VITALS: PULSE 97; RESP 16; O2SAT 98
[2018-05-20] MEDS: Atorvastatin Calcium 20 MG Tablet PO (21:43)
[2018-05-20] MEDS: traZODone 50 MG Tablet 150 MG PO (21:43)
[2018-05-21] MEDS: Levothyroxine 112 MCG Tablet PO (05:10)
[2018-05-21] MEDS: Menthol/Lanolin/Calamine/Znox 113 GM Tube 1 APPLIC TOPICAL (05:11)
[2018-05-21 06:31] LABS: Bedside Glucose 150 mg/dL (70-110)
[2018-05-21 07:20] VITALS: PULSE 68; RESP 16; O2SAT 99
[2018-05-21] MEDS: Budesonide Respules 0.5 MG/2 ML AMPUL.NEB. INHALATION (07:20)
[2018-05-21] MEDS: Spironolactone 25 MG Tablet PO (09:37)
[2018-05-21] MEDS: buPROPion (XL) 150 MG TABLET.XL PO (09:37)
[2018-05-21] MEDS: Anastrozole 1 MG Tablet PO (09:37)
[2018-05-21] MEDS: Senna/Docusate Sodium 1 Tablet PO (09:37)
[2018-05-21] MEDS: Enoxaparin 120 MG/0.8 ML Syringe SC (09:38)
[2018-05-21 11:07] VITALS: BP 137/66; PULSE 70; RESP 18; TEMP 36.9; O2SAT 95
--- NOTE | 2018-05-22 14:02 | CASEMGMT ---
Insurance Notified insurance of resident discharge on 05/21/18 to home with spouse. Auth#[id number] Guru LATHAM, DESMOND
--- NOTE | 2018-05-23 13:41 | MDS.RN ---
Information for the mds was obtained from review of the clinical record, interview of resident, staff, and direct observation of resident's care.
== END 2018-05-21 10:20 | disposition home or self-care (01) | DRG 940 ==
PROVIDERS: Admitting Provider Family Medicine Geriatric Medicine; Family Provider Internal Medicine; PCP Internal Medicine; Referring Provider Family Medicine Geriatric Medicine; Visit Provider Family Medicine Geriatric Medicine
DX: S90.31XD Contusion of right foot, subsequent encounter (principal); L03.115 Cellulitis of right lower limb; N20.1 Calculus of ureter; W22.8XXD Striking against or struck by other objects, subsequent encounter; E11.9 Type 2 diabetes mellitus without complications; J44.9 Chronic obstructive pulmonary disease, unspecified; M19.90 Unspecified osteoarthritis, unspecified site; E78.5 Hyperlipidemia, unspecified; E03.9 Hypothyroidism, unspecified; G25.81 Restless legs syndrome; I10 Essential (primary) hypertension; F32.9 Major depressive disorder, single episode, unspecified; F41.9 Anxiety disorder, unspecified; G47.33 Obstructive sleep apnea (adult) (pediatric); B35.4 Tinea corporis; Z85.3 Personal history of malignant neoplasm of breast; Z79.01 Long term (current) use of anticoagulants; Z86.711 Personal history of pulmonary embolism
CPT/HCPCS: 36415; 80048; 82962; 85025; 85610; 87633; 93005; 93970; 94640; 94668; 97110; 97116; 97163; 97166; 97530; 97535; 97802; J7120

== ENCOUNTER 2018-05-19 10:20 | Day surgery (SDC) | payer MEDICARE, SELFPAY ==
--- NOTE | 2018-05-18 12:53 | PCM.HP.BLA ---
History and Physical Date of Admission: 05/19/18 I have hydronephrosis (Stent Inserted). HPI: DULCE SANCHEZ is a 77 year-old female established patient who is here for hydronephrosis (Stent Inserted). Her stent was placed 1 week ago . The problem is on the left side. The stent was placed for a ureteral stone. Patient denies kidney stone, ureteral stricture, compression from mass, and blood clot. She had the following x-rays done: KUB. She is currently having back pain. She denies having flank pain, groin pain, nausea, vomiting, fever, and chills. She does have urgency. She does have frequency. She does not have dysuria. plan for laser of stone. ALLERGIES: Codeine vicodin MEDICATIONS: Budesonide Bupropion Hcl Cefadroxil Clonazepam Furosemide Levothyroxine Sodium Prednisone Simvastatin PSH: Cystoscopy Insert Stent - 04/21/2018 NON- PSH: None PMH: Frequency of micturition Personal history of urinary calculi Unspecified urinary incontinence NON- PMH: Hypothyroidism, unspecified Major depressive disorder, single episode, unspecified Malignant neoplasm of unsp site of unspecified female breast Personal history of diseases of the ms sys and conn tiss Type 2 diabetes mellitus without complications Immunizations: None FAMILY HISTORY: None SOCIAL HISTORY: Marital Status: Race: White Current Smoking Status: Patient has never smoked. Tobacco Use Assessment Completed: Used Tobacco in last 30 days? Smoking cessation counseling was provided. Does not use smokeless tobacco. Drinks 4+ caffeinated drinks per day. Has had a blood transfusion. REVIEW OF SYSTEMS: Constitutional: Patient denies fever, chills, weight loss, and weight gain. Eyes: Patient denies cataracts, blurry vision, and glaucoma. Ears, Nose, Mouth, Throat: Patient denies hearing loss, sinus infections, and sleep apnea. Cardiovascular: Patient denies chest pains, swollen ankles, irregular heartbeat, and pacemaker/defib. Respiratory: Patient denies shortness of breath, wheezing, oxygen, and cpap machine. Gastrointestinal: Patient denies abdominal pain, diarrhea, constipation, nausea, and vomiting. Genitourinary: Patient denies frequent urination, urinary retention, get up at night to void, leakage of urine, painful urination, blood in the urine, frequent uti's, history of stones, difficulty starting stream, weak stream/scanty, and bedwetting. Musculoskeletal: Patient denies sore muscles, back pain, and gout. Integumentary/Skin: Patient denies rash, skin cancer, and chronic itching. Neurological: Patient denies falling/unsteady, paralysis, and stroke/tia. Hematologic/Lymphatic: Patient denies abnormal bleeding, blood transfusion, swollen lymph nodes, deep venous thrombosis, and pulmonary embolism. VITAL SIGNS: 05/04/2018 09:57 AM Weight 268 lb / 121.56 kg Height 65 in / 165.1 cm BP 112/66 mmHg BMI 44.6 kg/m? - BMI Counseling was provided. MULTI-SYSTEM PHYSICAL EXAMINATION: Constitutional: Obese. No physical deformities. Normally developed. Good grooming. Neck: Neck symmetrical, not swollen. Normal tracheal position. Respiratory: No labored breathing, no use of accessory muscles. Cardiovascular: Normal temperature, normal extremity pulses, no swelling, no varicosities. Lymphatic: No enlargement of neck, axillae, groin. Skin: No paleness, no jaundice, no cyanosis. No lesion, no ulcer, no rash. Neurologic / Psychiatric: Oriented to time, oriented to place, oriented to person. No depression, no anxiety, no agitation. Gastrointestinal: Obese abdomen. No mass, no tenderness, no rigidity. Eyes: Normal conjunctivae. Normal eyelids. Ears, Nose, Mouth, and Throat: Left ear no scars, no lesions, no masses. Right ear no scars, no lesions, no masses. Nose no scars, no lesions, no masses. Normal hearing. Normal lips. Musculoskeletal: Normal gait and station of head and neck. PAST DATA REVIEWED: Source Of History: Patient Records Review: Previous Doctor Records, Previous Hospital Records, Previous Patient Records Urine Test Review: Urinalysis X-Ray Review: C.T. Abdomen/Pelvis: Reviewed Films. Reviewed Report. Discussed With Patient. PROCEDURES: Urinalysis - [address] Dipstick Dipstick Cont'd Specimen: Voided Blood: Neg Appearance: Clear pH: 5.0 Color: Yellow Protein: Neg Glucose: Normal Urobilinogen: Neg Bilirubin: Neg Nitrites: Neg Ketones: Neg Leukocyte Esterase: Neg ASSESSMENT: ICD-10 Details 1 : Hydronephrosis with renal and ureteral calculous obstruction - N13.2 2 NON-: Hypothyroidism, unspecified - E03.9 3 Personal history of diseases of the ms sys and conn tiss - Z87.39 4 Type 2 diabetes mellitus without complications - E11.9 5 Obesity, unspecified - E66.9 PLAN: Document Letter(s): Created for Patient: Clinical Summary The risks, benefits, and some of the possible complications of the proposed procedure were discussed with the patient at length and in detail including the possibility of bladder injury, urethral injury, ureteral injury, ureteral biopsy, ureteral lesion resection, open nephrectomy, a bladder biopsy, retrograde pyelograms, resection of a bladder lesion, dilation of the urethra, a postoperative catheter, placement of a ureteral stent, and others. The possible need for further surgical procedures was discussed with the patient. The possible need for postoperative treatments including further surgical procedures, chemotherapy, immunotherapy, radiation therapy, and others was discussed with the patient. The possibility that this operative procedure might not to cure the underlying disease, that micrometastatic disease might already be present, and that this underlying disease might result in the of the patient was discussed. The general risks of the operative procedure and the perioperative period were discussed with the patient at length and in detail including swelling, pain, nausea, vomiting, fever, chills, infection, wound infection, sepsis, renal failure, internal or external bleeding, intraoperative bowel, organ or vascular injuries, postoperative formation of scar tissue, the need for blood transfusions, deep venous thrombosis or blood clots, pulmonary embolus, pneumonia, respiratory failure, heart attack, stroke, he and others. All of the patient's questions were answered and he voiced an understanding of these risks, benefits and possible complications. The patient gave fully informed consent to proceed with the procedure. Notes: plan for Ureteroscopy and laser stone and possible stent removal. Bridge off coumadin for Lovenox. PAT, set up for surgery.
[2018-05-19 10:36] LABS: Prothrombin Time Fingerstick 15.1 SEC (11.9-14.4)
[2018-05-19 10:39] VITALS: BP 114/60; PULSE 78; RESP 18; TEMP 36.9; O2SAT 99; BMI 43.6
[2018-05-19 10:50] LABS: Bedside Glucose 127 mg/dL (70-110)
--- NOTE | 2018-05-19 10:55 | DCINST_ITS ---
Discharge Diet: Light diet - advance as tolerated Discharge Activity: Return to Normal Activity Instructions: Treating Kidney Stones: Ureteroscopic Stone Removal Allergies/Adverse Reactions: Allergies acetaminophen [From Vicodin] Allergy (Verified 05/04/18 12:35) Unknown codeine Allergy (Verified 05/04/18 12:35) Unknown hydrocodone bitartrate [From Vicodin] Allergy (Verified 05/04/18 12:35) Unknown Medications to take at Discharge Levothyroxine [Synthroid] 112 mcg PO DAILY 01/24/14 Simvastatin [Zocor] 40 mg PO QHS 01/24/14 Anastrozole [Arimidex] 1 mg PO DAILY 03/17/15 traZODone [Desyrel] 150 mg PO QHS 05/07/16 Clonazepam [Klonopin] 1 mg PO DAILY PRN PRN #30 tablet 06/09/16 Bupropion HCl [Bupropion Xl] 150 mg PO DAILY 04/22/18 Prednisone 2.5 mg PO QODAY 04/22/18 Fluticasone Furoate [Arnuity Ellipta] 1 puff INHALATION DAILY 05/04/18 Furosemide [Lasix] 20 mg PO DAILY 05/04/18 Warfarin Sodium 1.5 mg PO MOFR 05/04/18 Warfarin Sodium 3 mg PO SUTUWETHSA 05/04/18 Nystatin Powder [Mycostatin Powder] 1 applic TOPICAL BID 05/10/18 Spironolactone [Aldactone] 25 mg PO DAILY 05/10/18 Acetaminophen [Tylenol] 1,000 mg PO Q6H PRN PRN tablet 05/18/18 Albuterol Inhaler [Ventolin Hfa] 2 puff INHALATION Q6HWA.RT inhaler 05/18/18 Budesonide Aerosol [Pulmicort Respules] 0.5 mg INHALATION BID.RT ampul.neb. 05/18/18 Enoxaparin Sodium [Lovenox] 120 mg SQ DAILY #30 syringe 05/18/18 Menthol/Lanolin/Calamine/Znox [Calmoseptine Ointment] 1 applic TOPICAL 0600,2200 tube 05/18/18 Mineral Oil/Petrolatum,White [Eucerin] 1 applic TOPICAL 2200 jar 05/18/18 Nutritional Supplement [Yannick - ORANGE FLAVOR] 1 packet PO BIDCM #60 packet 05/18/18 traMADol [Ultram] 50 mg PO Q6H PRN PRN tablet 05/18/18 Acetaminophen [Tylenol Extra Strength] 500 mg PO Q4H PRN PRN #20 tablet 05/19/18 The following prescriptions were given: Acetaminophen [Tylenol Extra Strength] 500 mg PO Q4H PRN PRN #20 tablet PRN Reason: Pain Orders to be completed after discharge: Prothrombin Time w/INR Time Frame: 05/19/18, Location: Laboratory Primary Care Physician: Ai Anguiano MD [Primary Care Provider] - Test Results: Test results from this visit will be discussed in further detail at your follow- up appointment, if applicable. Please Follow Up With: Robert Estes MD When: in 2 weeks, please call to make an appointment.
[2018-05-19] MEDS: Cefazolin 2 GM in 0.9% Normal Saline 100 ML IV (11:02)
--- NOTE | 2018-05-19 11:28 | OP.PCM_ITS ---
Report of Operation Date of Procedure: 05/19/18 Pre-Operative Diagnosis: Status post left stent placement for left ureteral calculi Post-Operative Diagnosis: Same Surgery/Procedure Performed:: Cystoscopy, left ureteroscopy, laser lithotripsy of stone, stent removal Description of Surgical Findings:: 77-year-old female taken back to the operating of the smooth induction of general anesthesia she was placed in dorsolithotomy position went of the bladder with a 21 Greenlandic rigid cystourethroscope grabbed the existing stent pulled out the meatus advanced a wire up the stent and then next the wire went in with a SlimLine rigid ureteroscope went all the way along the course of the ureter no stone along along the course of the ureter therefore I removed the rigid ureteroscope went back in with a flexible ureteroscope and then an endoscopy of the upper pole midpole lower pole and the lower pole of the stone this was laser little tiny pieces because the ureter so dilated that side not to leave a stent in work my way down the ureter drain the bladder pulled out the wire and stented then removed bladder was drained and the patient anesthetic was reversed. Type of Anesthesia:: General Drains: none - Admit VTE Documentation VTE Present on Admission: No VTE Mechan Device Prophylaxis: SCD's
[2018-05-19 11:36] VITALS: BP 114/60; BP 98/57; PULSE 86; RESP 16; TEMP 36; O2SAT 93
[2018-05-19 11:45] VITALS: BP 114/60; BP 99/57; PULSE 82; RESP 16; O2SAT 93
[2018-05-19 11:45] LABS: Bedside Glucose 139 mg/dL (70-110)
[2018-05-19 12:00] VITALS: BP 106/64; BP 114/60; PULSE 78; RESP 16; TEMP 36.2; O2SAT 94
== END 2018-05-19 12:02 ==
LOC: SDC 10:21 → AC 10:22
PROVIDERS: Family Provider Internal Medicine; PCP Internal Medicine; Referring Provider Urology; Visit Provider Urology
PROC: 0TJ98ZZ Inspection of Ureter, Via Natural or Artificial Opening Endoscopic (ICD-10-PCS; CPT 52352; principal; 2018-05-19 11:20)
DX: N13.2 Hydronephrosis with renal and ureteral calculous obstruction (principal); E03.9 Hypothyroidism, unspecified; E11.9 Type 2 diabetes mellitus without complications; E66.9 Obesity, unspecified; N18.3 Chronic kidney disease, stage 3 (moderate); G47.30 Sleep apnea, unspecified; F32.9 Major depressive disorder, single episode, unspecified; Z87.39 Personal history of other diseases of the musculoskeletal system and connective tissue; Z68.41 Body mass index [BMI] 40.0-44.9, adult; Z87.442 Personal history of urinary calculi; Z85.3 Personal history of malignant neoplasm of breast; Z79.01 Long term (current) use of anticoagulants; Z86.711 Personal history of pulmonary embolism
CPT/HCPCS: 52310; 52353; 36416; 82962; 85610; J2405

== ENCOUNTER → 2018-05-29 10:27 | Outpatient (CLI) | payer MEDICARE, SELFPAY ==
[2018-05-19 10:39] VITALS: BMI 43.6
--- NOTE | 2018-05-29 10:33 | RAD_ITS ---
STUDY: X-RAY - ABDOMEN/PELVIS REASON FOR EXAM: Female, 77 years old. History of kidney stones. No pain. TECHNIQUE: AP supine abdomen. COMPARISON: May 04, 2018. FINDINGS: Normal visualized lung bases. Left internal ureteral stent has been removed. No pathologic calcification suggestive of urinary tract stones. There is an unremarkable bowel gas pattern. There is no demonstrated free abdominal air. The visualized liver, spleen and kidneys are grossly normal in size and morphology. Normal soft tissue structures. Surgical clips right upper quadrant. Suture line inferior pelvis. Total bilateral hip arthroplasties in normal alignment. Degenerative changes of the lumbar spine, sacroiliac joints and pubic symphysis are stable. RAD/Abdomen Single View IMPRESSION: Nonspecific bowel gas pattern without evidence of obstruction. Removal of left internal ureteral stent since the prior exam. Electronically Signed: Marv Hendrickson MD at 23:43 EST , Service support ,
== END ==
PROVIDERS: Family Provider Internal Medicine; PCP Internal Medicine; Referring Provider Nurse Practitioner Adult Health; Visit Provider Nurse Practitioner Adult Health
DX: N20.0 Calculus of kidney (principal); R31.9 Hematuria, unspecified
CPT/HCPCS: 74018; 87077; 87086; 87088; 87186

== ENCOUNTER → 2018-06-05 15:47 | Outpatient (CLI) | payer MEDICARE, SELFPAY ==
[2018-05-19 10:39] VITALS: BMI 43.6
[2018-06-05 17:45] LABS: Rheumatoid Factor < 10.0 IU/mL (<15)
[2018-06-07 15:07] LABS: Anti-Scleroderma-70 AB <0.2 AI (0.0-0.9); SJOGREN'S Anti-SS-A test < 0.2 AI (0.0-0.9); SJOGREN'S Anti-SS-B test < 0.2 AI (0.0-0.9)
[2018-06-07 15:16] LABS: ANTINUCLEAR ANTIBODIES DIRECT Positive (Negative); Anti-dsDNA Ab <1 IU/mL (0-9)
[2018-06-07 20:07] LABS: Cytoplasmic Ab (C-ANCA) <1:20 titer (Neg:<1:20)
[2018-06-09 09:19] LABS: Angiotensin Convert Enzyme 33 U/L (14-82); Perinuclear Ab (P-ANCA) <1:20 titer (Neg:<1:20)
== END ==
PROVIDERS: Family Provider Internal Medicine; PCP Internal Medicine; Referring Provider Internal Medicine Pulmonary Disease; Visit Provider Internal Medicine Pulmonary Disease
DX: R05 Cough (principal); J18.9 Pneumonia, unspecified organism; T78.40XA Allergy, unspecified, initial encounter
CPT/HCPCS: 36415; 82164; 86038; 86225; 86235; 86256; 86431

== ENCOUNTER → 2018-07-11 15:11 | Outpatient (CLI) | payer MEDICARE, SELFPAY ==
[2018-07-11 18:11] LABS: CRP 8.37 mg/L (0.0-3.0)
[2018-07-14 13:47] LABS: Angiotensin Convert Enzyme 47 U/L (14-82)
== END ==
PROVIDERS: Family Provider Internal Medicine; PCP Internal Medicine; Referring Provider Internal Medicine Pulmonary Disease; Visit Provider Internal Medicine Pulmonary Disease
DX: R05 Cough (principal)
CPT/HCPCS: 36415; 82164; 86140

== ENCOUNTER 2018-08-02 11:36 | Day surgery (SDC) | payer MEDICARE, SELFPAY ==
[2018-08-02] VITALS (7 sets, daily range): BP systolic 98–136; BP diastolic 62–76; PULSE 71–80; RESP 16–18; TEMP 36.5–36.8; O2SAT 95–99; BMI 42.7
--- NOTE | 2018-08-02 | LUNB_PTH ---
PATIENT: DULCE SANCHEZ LOC: EN U#:[id number] AGE/SX: 78/F ROOM: RE08/02/[address]: Dr. Benjie Tripp MD : 1940 BED: DIS: 08/02/2018 SPEC #: [id number] RECD: 08/02/18 14:17 STATUS: FERNANDA RESisi #: [id number] ORLIN: 08/02/18 00:[address]: Benjie Tripp V DEPT: SURGICAL PATHOLOGY RECD BY: Diego Gordon ENTERED: 08/03/18 08:27 SP TYPE: LUNG BX OTHR DR: Dr. Ai Anguiano MD Tissues: A - Lung, NOS B - Lung, NOS Procedures: Surgery Specimen Level IV HEADER OPERATION: Bronchoscopy, endobronchial biopsies, bronchial alveolar lavage PRE-OP DIAGNOSIS: Chronic cough, abnormal CT TISSUE SUBMITTED: A - RLL and RUL biopsies, B - LLL biopsy MICROSCOPIC DIAGNOSIS A. RLL and RUL, endobronchial biopsies: Fragments of bronchial mucosa with mild chronic inflammation and squamous metaplasia. Negative for malignancy. B. LLL, endobronchial biopsy: Fragments of bronchial mucosa with focal mild chronic inflammation. Negative for malignancy. SJ:carmella 08/04/18 MICROSCOPIC DESCRIPTION Slides are reviewed. GROSS DESCRIPTION A - Received in fixative is one container labeled with the patient's name and designated right lower lobe and right upper lobe biopsies. The specimen consists of multiple irregular fragments of james-pink soft tissue that in aggregate measure 0.4 x 0.3 x 0.1 cm. The specimen is totally submitted in one cassette. B - Received in fixative is one container labeled with the patient's name and designated left lower lobe biopsy. The specimen consists of multiple irregular fragments of reddish-pink soft tissue that in aggregate measure 0.7 x 0.2 x 0.1 cm. The specimen is totally submitted in one cassette. / CE:carmella 08/03/18 TC:3 CPT: 78156 x2
--- NOTE | 2018-08-02 | FLU_PTH ---
PATIENT: DULCE SANCHEZ LOC: EN U#:[id number] AGE/SX: 78/F ROOM: RE08/02/[address]: Dr. Benjie Tripp MD : 1940 BED: DIS: 08/02/2018 SPEC #: [id number] RECD: 08/02/18 14:17 STATUS: FERNANDA MARY #: [id number] ORLIN: 08/02/18 00:[address]: Benjie Tripp V DEPT: CYTOLOGY RECD BY: Diego Gordon ENTERED: 08/03/18 08:23 SP TYPE: Fluid OTHR DR: Dr. Ai Anguiano MD Tissues: A - Bronchus, NOS B - Bronchus of left lower lobe Procedures: Special Stain Group II Special Stain Group I Surgery Specimen Level IV AFB Stain (control) Cytospin Fluid HEADER OPERATION: Bronchoscopy, endobronchial biopsies, bronchial alveolar lavage PRE-OP DIAGNOSIS: Chronic cough, abnormal CT TISSUE SUBMITTED: A - Bronchial fluid LLL for cytology, B - Bronchial fluid LLL for cytology DIAGNOSIS CYTOLOGY A. LLL, BAL (cytospin and cell block): Negative for malignant cells. See cytology study and comment. B. LLL, BAL (cytospin and cell block): Negative for malignant cells. See cytology study and comment. Special stain for acid fast bacilli is negative for organisms; matched control is appropriate. SJ:carmella 08/04/18 COMMENT Please correlate with corresponding biopsies ([id number]). Clinical correlation and appropriate follow up are necessary. CYTOLOGY STUDY Slides are reviewed. A. The specimen is bloody and consists of respiratory epithelial cells and macrophages. B. The specimen is bloody and consists of numerous macrophages and respiratory epithelial cells. CYTOLOGY GROSS A - Received is 50 ml of red cloudy fluid labeled with the patient's name and and designated per the requisition as LLL. Submitted for cytology preparation including cell block. B - Received is 60 ml of red cloudy fluid labeled with the patient's name and and designated per the requisition as LLL. Submitted for cytology preparation including cell block. 08/03/18 TC:5 CPT: 83598 x2, 63558 x2, 78266
[2018-08-02 12:00] LABS: Prothrombin Time Fingerstick 12.6 SEC (11.9-14.4)
[2018-08-02 12:15] LABS: Bedside Glucose 162 mg/dL (70-110)
--- NOTE | 2018-08-02 13:58 | OP.ENDO_ITS ---
Patient Name: Marya Shoemaker Procedure Date: 08/02/2018 12:08 PM Date of : 1940 Age: 78 Procedure: Bronchoscopy Indications: Chronic cough with abnormal CT Providers: Benjie Tripp MD Referring MD: Benjie Tripp MD Medicines: Propofol per Anesthesia, Lidocaine 2% Nebulizer mL Complications: No immediate complications Procedure: Pre-Anesthesia Assessment: - A History and Physical has been performed. Patient meds and allergies have been reviewed. The risks and benefits of the procedure and the sedation options and risks were discussed with the patient. All questions were answered and informed consent was obtained. Patient identification and proposed procedure were verified prior to the procedure. Mental Status Examination: alert and oriented. ASA Grade Assessment: III - A patient with severe systemic disease. After reviewing the risks and benefits, the patient was deemed in satisfactory condition to undergo the procedure. The anesthesia plan was to use monitored anesthesia care (MAC). Immediately prior to administration of medications, the patient was re-assessed for adequacy to receive sedatives. The heart rate, respiratory rate, oxygen saturations, blood pressure, adequacy of pulmonary ventilation, and response to care were monitored throughout the procedure. The physical status of the patient was re-assessed after the procedure. After I obtained informed consent, the scope was passed under direct vision. Throughout the procedure, the patient's blood pressure, pulse, and oxygen saturations were monitored continuously. The bronchoscope was introduced through the mouth and advanced to the tracheobronchial tree of both lungs. The patient tolerated the procedure well. Findings: The oropharynx appears normal. The larynx appears normal. The vocal cords appear normal. The subglottic space is normal. The trachea is of normal caliber. The danielle is sharp. The tracheobronchial tree was examined to at least the first subsegmental level. Bronchial mucosa and anatomy are normal; there are no endobronchial lesions, and no secretions. Erythema was found in the trachea mosty hyperemia, also AP collapse of trachea, narrow AP, nadia w/ cough- closure is noted. Endobronchial biopsies were performed in the left lower lobe, in the anterior segment of the right upper lobe and in the superior segment of the right lower lobe using forceps and sent for histopathology examination. [Number of samples 6 were obtained. Bronchoalveolar lavage was performed in the LLL posterior basal segment (B10) of the lung and sent for cell count, bacterial culture, viral smears & culture, and fungal & AFB analysis and cytology and cell count and differential. 140 mL of fluid were instilled. 50 mL were returned. The return was bloody and cloudy. There were no mucoid plugs in the return fluid. Impression: - Chronic cough with abnormal CT - The airway examination was normal. - The patient stopped coughing w/ Lido topical - Erythema was present in the trachea. - An endobronchial biopsy was performed. - Bronchoalveolar lavage was performed. - The airway examination was normal. Recommendation: - Follow up with bronchoscopist in 2 weeks. Procedure Code(s): --- Professional --- 55917, Bronchoscopy, rigid or flexible, including fluoroscopic guidance, when performed; with bronchial alveolar lavage Diagnosis Code(s): --- Professional --- R05, Cough R91.8, Other nonspecific abnormal finding of lung field R09.89, Other specified symptoms and signs involving the circulatory and respiratory systems CPT copyright 2017 [employer]. All rights reserved. The codes documented in this report are preliminary and upon weight loss counselor review may be revised to meet current compliance requirements. MD Benjie Bonilla MD 08/02/2018 1:58:21 PM This report has been signed electronically. Number of Addenda: 0 Note Initiated On: 08/02/2018 12:08 PM
[2018-08-02 14:32] LABS: Cytology, Body Fluid / CSF SEE PATHOLOGY REPORT
[2018-08-02 16:20] LABS: Auto B Fluid Analyzer BKGD Ct COUNTS W/IN LIMITS (W/IN LIMITS)
[2018-08-02 16:24] LABS: Appearance/Body Fluid CLOUDY; Color/Body Fluid PINK
[2018-08-02 16:25] LABS: Body Fluid QC Type(s) BF1Q; Red Cell Count/Body Fluid 8244 /mm3
== END 2018-08-02 15:03 | disposition home or self-care (01) ==
LOC: EN 11:37 → AC 11:38
PROVIDERS: Family Provider Internal Medicine; PCP Internal Medicine; Referring Provider Internal Medicine Pulmonary Disease; Visit Provider Internal Medicine Pulmonary Disease
PROC: 0BJ08ZZ Inspection of Tracheobronchial Tree, Via Natural or Artificial Opening Endoscopic (ICD-10-PCS; CPT 31622; principal; 2018-08-02 12:00)
DX: R05 Cough (principal); R91.8 Other nonspecific abnormal finding of lung field; R09.89 Other specified symptoms and signs involving the circulatory and respiratory systems; R91.1 Solitary pulmonary nodule; J38.3 Other diseases of vocal cords; J30.9 Allergic rhinitis, unspecified; E66.09 Other obesity due to excess calories; Z68.41 Body mass index [BMI] 40.0-44.9, adult; E03.9 Hypothyroidism, unspecified; E78.5 Hyperlipidemia, unspecified; M79.7 Fibromyalgia; E11.9 Type 2 diabetes mellitus without complications; Z85.3 Personal history of malignant neoplasm of breast; G47.33 Obstructive sleep apnea (adult) (pediatric); Z86.711 Personal history of pulmonary embolism
CPT/HCPCS: 31624; 36416; 76000; 82962; 85610; 87015; 87070; 87077; 87116; 87186; 87205; 87206; 88108; 88305; 88312; 88313; 89050; J7120; J2405

== ENCOUNTER → 2018-11-28 11:00 | Outpatient (CLI) | payer MEDICARE, SELFPAY ==
[2018-10-25 13:42] VITALS: BMI 45.9
--- NOTE | 2018-11-28 11:15 | RAD_ITS ---
STUDY: X-RAY - ABDOMEN/PELVIS REASON FOR EXAM: Female, 78 years old. Hematuria. Kidney stone. TECHNIQUE: Two AP supine views of the abdomen and pelvis. COMPARISON: Abdomen, May 29, 2018. FINDINGS: The lung bases are are not included. There is an unremarkable bowel gas pattern. There is no demonstrated free abdominal air. The visualized liver, spleen and kidneys are grossly normal in size and morphology. Cholecystectomy clips are seen in the right upper quadrant. There is no visualized renal calculi. Surgical changes are noted overlying the pelvis consistent with herniorrhaphy. There are diffuse degenerative changes of the visualized lumbar spine. RAD/Abdomen Single View IMPRESSION: 1. No visualized renal calculi. 2. No evidence of acute intra-abdominal process. Electronically Signed: Favian Valladares DO at 17:42 EDT Tel [phone], Service support ,
== END ==
PROVIDERS: Family Provider Internal Medicine; PCP Internal Medicine; Referring Provider Urology; Visit Provider Urology
DX: N20.0 Calculus of kidney (principal)
CPT/HCPCS: 74018

== ENCOUNTER 2018-11-28 15:02 | Emergency (ER) | payer MEDICARE, SELFPAY ==
[2018-10-25 13:42] VITALS: BMI 45.9
[2018-11-28 15:03] VITALS: BP 181/107; PULSE 99; RESP 18; TEMP 37; O2SAT 96; BMI 44.9
--- NOTE | 2018-11-28 15:12 | CT_ITS ---
STUDY: CT BRAIN WITHOUT CONTRAST REASON FOR EXAM: Female, 78 years old. Fall. Head injury. Patient on anticoagulant. RADIATION DOSAGE (If Supplied By Facility): CTDIvol = ( 44.99 ) mGy, DLP = ( 779.24 ) mGycm TECHNIQUE: Transaxial CT imaging of the brain was performed without administration of intravenous contrast material. Individualized dose optimization techniques were used for this CT. COMPARISON: No relevant priors. FINDINGS: Normal soft tissue structures. Normal calvarium. Normal size ventricles and extra-axial spaces for the patient's age. Normal white matter tracts of the cerebral hemispheres. Normal basal ganglia and thalami. Normal brainstem. Normal cerebellum. There is no intracranial hemorrhage. There are no findings of an acute ischemic infarction. There are calcifications of the bilateral cavernous carotids. Normal visualized paranasal sinuses. CT/Brain/Head without Contrast IMPRESSION: No acute intracranial or calvarial abnormality. There is age appropriate chronic embolization changes. Electronically Signed: Favian Valladares DO at 16:13 EDT Tel [phone], Service support ,
--- NOTE | 2018-11-28 15:12 | CT_ITS ---
STUDY: CT CERVICAL SPINE WITHOUT CONTRAST REASON FOR EXAM: Female, 78 years old. Fall. Head injury. Patient on anticoagulant. RADIATION DOSAGE (If Supplied By Facility): CTDIvol = ( 32.49 ) mGy, DLP = ( 655.16 ) mGycm TECHNIQUE: High resolution transaxial imaging was performed without contrast material. Sagittal and coronal images were reconstructed. Individualized dose optimization techniques were used for this CT. COMPARISON: Cervical spine, October 26, 2017. FINDINGS: Normal craniovertebral junction. There are degenerative changes of the anterior atlantoaxial articulation. There is a type II fracture of the odontoid process without displacement. There is mild productivity and sclerosis about the edges suggesting chronicity. An acute fracture however cannot be ruled out. There is straightening of the normal cervical lordosis. Normal vertebral bodies and posterior osseous elements. C2-3: Normal endplates. Loss of disc height. Facet and uncovertebral joint degenerative change, most marked on the right. Normal central canal. Narrowing of the right intervertebral neuroforamen. C3-4: Loss of disc height with endplate spondylosis. Facet and uncovertebral joint degenerative change, most marked on the right. Normal central canal. Narrowing of the bilateral intervertebral neuroforamina, right greater than left. C4-5: Mild loss of disc height with exuberant anterior endplate spondylosis. Facet and uncovertebral joint degenerative change. Normal central canal. Narrowing of the bilateral intervertebral neuroforamina. C5-6: Mild loss of disc height with exuberant anterior endplate spondylosis. Facet and uncovertebral joint degenerative change. Normal central canal. Narrowing of the bilateral intervertebral neuroforamina. C6-7: Mild loss of disc height with exuberant anterior endplate spondylosis. Facet and uncovertebral joint degenerative change. Normal central canal. Narrowing of the bilateral intervertebral neuroforamina. C7-T1: Loss of disc height with endplate spondylosis. Facet joint degenerative change. Normal central canal and intervertebral neuroforamina. Normal visualized soft tissue structures. CT/Spine Cervical without Contras IMPRESSION: 1. Age indeterminant nondisplaced type II odontoid fracture. This is questionably present on the cervical spine images of 2018. In light of patient's history, and acute fracture is of concern. 2. Degenerative changes of the cervical spine. N.B. : The above information has been verbally conveyed by Favian Valladares DO to Mary Victoria MD, on 11/28/2018 16:21:43 (ET). Electronically Signed: Favian Valladares DO at 16:23 EDT Tel [phone], Service support ,
--- NOTE | 2018-11-28 15:15 | ED.VIS.GEN ---
History of Present Illness Chief Complaint: Fall Informant: Patient Onset: Today Context: Sudden Onset Current Severity: Mild Maximum Severity: Mild Narrative: Patient is a 78-year-old female presenting after a fall. Patient states she was at a coffee shop when she went to stand up with her Rollator and her arms feel weak and they gave out on her. Patient then fell onto the ground. Patient does not think she hit her head but her friends who witnessed the fall told her that she did hit her head on the ground which was concrete. Patient denies any loss of consciousness. She did sustain an abrasion to her right elbow and has some associated pain. She is not sure her last tetanus was. Patient states she is due to get her INR checked today. 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 Patient states she is otherwise feeling well this morning. She denies any other complaints at this time. Past Medical History - Allergies and Home Meds Allergies/Adverse Reactions: Allergies acetaminophen [From Vicodin] Allergy (Verified 11/28/18 15:03) Unknown codeine Allergy (Verified 11/28/18 15:03) Unknown hydrocodone bitartrate [From Vicodin] Allergy (Verified 11/28/18 15:03) Unknown Primary Care Physician: Ai Anguiano MD [Primary Care Provider] - Prior records reviewed: Yes Surgical History: cholecystectomy, total hip arthroplasty - Bilateral., total knee arthroplasty - Bilateral., tonsillectomy, - - ORIF right ankle fracture, Tubal ligation. Lives: Spouse/ Significant Other Smoking Status: Never smoker - Family History Maternal Family History: Reports: No pertinent history Paternal Family History: Reports: Heart Disease Review of Systems All systems negative except as indicated Musculoskeletal: Reports: Swelling - chronic, left lower leg, unchanged Skin: Reports: Abrasions - right elbow Neurological: Denies: Headache, Parasthesia, Numbness Physical Exam Vital Signs/Narrative: Vital Signs Temp Pulse Resp BP Pulse Ox 11/28/18 15:03 98.6 F 99 18 181/107 H 96 Inital Vital Signs reviewed: Yes General: Well nourished, Well developed, No Acute Distress Head: Normocephalic, Atraumatic Eyes: Perrl, EOMI ENT: Moist mucous membranes, No rhinorrhea, - - No malocclusion, no septal hematoma Neck: Supple, Nontender, - - Normal ROM Cardiovascular: Regular rate, Regular rhythm, No murmurs Respiratory: No distress, CTA bilaterally, Chest nontender, - - No crepitus. Negative for: Chest tenderness Abdomen: Soft, Nontender, Nondistended Back: Nontender, Normal Inspection Extremities: Nontender, - - Full range of motion, no bony tenderness or deformity, left lower extremity is wrapped in Bharath wrap and does have associated edema, pelvis is stable. Negative for: No edema, Tenderness Skin: Normal color, No rash, - - 2 cm skin tear over distal humerus, lateral aspect, no active bleeding Neurological: Alert, Oriented x3, Cranial nerves II-XII grossly intact, Normal Strength, Normal Sensation Psychological: Normal affect, Normal Mood Diagnostic/Tx/Re-eval Laboratory Results - last 24 hr 11/28/18 15:40 PT 38.6 H INR 3.9 H* Diagnostic Data Brain CT 11/28/18 15:12 IMPRESSION: No acute intracranial or calvarial abnormality. There is age appropriate chronic embolization changes. Electronically Signed: Favian Valladares DO at 16:13 EDT Tel [phone], Service support , Cervical Spine CT 11/28/18 15:12 IMPRESSION: 1. Age indeterminant nondisplaced type II odontoid fracture. This is questionably present on the cervical spine images of 2018. In light of patient's history, and acute fracture is of concern. 2. Degenerative changes of the cervical spine. N.B. : The above information has been verbally conveyed by Favian Valladares DO to Mary Victoria MD, on 11/28/2018 16:21:43 (ET). Electronically Signed: Favian Valladares DO at 16:23 EDT Tel [phone], Service support , ADDENDUM: 11/28/18 1630 IMPRESSION: 1. Age indeterminant nondisplaced type II odontoid fracture. This is questionably present on the cervical spine images of 2018. In light of patient's history, and acute fracture is of concern. 2. Degenerative changes of the cervical spine. N.B. : The above information has been verbally conveyed by Favian Valladares DO to Mary Victoria MD, on 11/28/2018 16:21:43 (ET). Electronically Signed: Favian Valladares DO at 16:23 EDT Tel [phone], Service support , ADDENDUM: 11/28/18 1652 Cervical Spine MRI 11/28/18 16:43 IMPRESSION: 1. Intact odontoid process without evidence for acute or subacute fracture. 2. No acute fracture, posterior ligament injury/sprain, or other evidence for traumatic injury to cervical spine. 3. Multilevel varying degrees of moderate and severe foraminal stenosis from C3-C4 through the C6-C7 levels as described. 4. Mild canal stenosis at C5-C6 and C6-C7 levels. at 1922 Reported and signed by: Hi Zuñiga MD Electronically Signed: Hi Zuñiga MD at 19:21 EDT Tel , Service support , - Medical Decision Making Patent is evaluated after a mechanical fall. She appears nontoxic in no acute distress. Vital signs are normal. Patient is a normal neurologic exam. She is only evidence of obvious head trauma. Because patient is anticoagulated on Coumadin, INR is checked and a CT C-spine and head without contrast are obtained to rule out any acute pathology. Patient does have a superficial skin tear which is addressed with wound cleansing, Steri-Strips and bandaging. Tetanus is updated. Patient CT of the spine initially shows a possible acute type II nondisplaced odontoid fracture. Chronicity cannot be determined based on the CT. I feel that this is unlikely based on patient's symptomatology however out of abundance of caution, patient is placed in a c-collar. Stat MRI is obtained to confirm this diagnosis. Patient in fact does not have any acute fracture. She does have chronic degenerative disease which she is-year-old. Patient is counseled on these findings. Patient is counseled on signs and symptoms requiring return to the emergency room. Patient verbalizes agreement and understand this plan. Patient discharged home in stable and improved condition. ED Disposition - Plan for ED Patient: Disposition: Home or Assisted Living Diagnosis: Accident due to mechanical fall without injury, Skin tear of elbow without complication, Need for tetanus, diphtheria, and acellular pertussis (Tdap) vaccine, Closed head injury Instructions: FALL, Mechanical Referrals: Ai Anguiano MD [Primary Care Provider] - Additional Instructions: Your first test showed a possible neck fracture. The MRI showed that you did not have any acute neck fracture. Please follow-up with your primary care provider. Your Coumadin level is slightly high today, 3.9. Do not take tomorrow's dose. Resume your normal dosage the following day.
[2018-11-28 16:13] LABS: Prothrombin Time (Protime)PT. 38.6 SECONDS (11.7-14.9)
[2018-11-28] MEDS: Diphth,Pertuss(Acell),Tet Vac 0.5 ML Vial IM (16:26)
[2018-11-28 16:41] LABS: International Normalized Ratio 3.9
--- NOTE | 2018-11-28 16:41 | ED.RN ---
INR 3.[address] LAB DR VALDOVINOS AWARE
--- NOTE | 2018-11-28 16:43 | MRI_ITS ---
HISTORY: Status post fall with neck pain, concern for odontoid fracture COMPARISON: CT cervical spine performed earlier same day. TECHNIQUE: Multisequence multiplanar MR imaging of the cervical spine was performed per department protocol without IV gadolinium. # of images incl. paperwork: [phone] FINDINGS: VERTEBRA: The odontoid process is intact without fracture or dislocation. No focal marrow signal abnormality or edema.. Straightening of cervical spine. Cervical vertebra are in alignment. No acute fracture or subluxation. Vertebral body heights are normal. Moderate to severe anterior marginal osteophytes C3-T1. Moderate degenerative changes of the anterior circulation of the C1-C2. No focal marrow signal abnormality is seen to suggest a pathologic process. The visualized posterior fossa is normal in signal. No abnormal signal is seen within the posterior interspinous ligaments or soft tissues. CORD: Cervicomedullary junction and cervical cord are normal in caliber, morphology, and signal characteristics. DISCS: Moderate disc space narrowing from C3-C4 through the C7-T1 levels. All the cervical disks are desiccated. LEVELS: C2-3: No disc bulges, disc protrusions, canal stenosis or neural foraminal stenosis. C3-4: Mild disc bulge with less than 1 mm effacing the ventral thecal sac. No canal stenosis. Moderate bilateral facet and uncovertebral joint hypertrophy resulting in severe right and moderate left foraminal stenosis. C4-5: No significant disc bulge or disc protrusion. No canal stenosis. Moderate bilateral facet and uncovertebral joint hypertrophy resulting in severe bilateral foraminal stenosis. C5-6: 2 mm broad-based disc osteophyte complex combined with moderate facet and uncovertebral joint hypertrophy results in mild canal stenosis and severe bilateral foraminal stenosis. C6-7: 2 mm broad-based disc osteophyte complex combined with moderate facet and uncovertebral joint hypertrophy results in mild canal stenosis and moderate bilateral neural foraminal stenosis. C7-T1: Mild disc bulge with less than 1 mm effacing the ventral thecal sac. No superimposed disc protrusion. No canal or foraminal stenosis. SOFT TISSUES: Paravertebral soft tissues show no gross signal abnormalities. MRI/Spine Cervical (Routine) IMPRESSION: 1. Intact odontoid process without evidence for acute or subacute fracture. 2. No acute fracture, posterior ligament injury/sprain, or other evidence for traumatic injury to cervical spine. 3. Multilevel varying degrees of moderate and severe foraminal stenosis from C3-C4 through the C6-C7 levels as described. 4. Mild canal stenosis at C5-C6 and C6-C7 levels. at 1922 Reported and signed by: Hi Zuñiga MD Electronically Signed: Hi Zuñiga MD at 19:21 EDT Tel , Service support ,
[2018-11-28 20:16] VITALS: RESP 17
[2018-11-28 21:20] VITALS: BP 168/74; PULSE 101; RESP 17; O2SAT 97
== END 2018-11-28 21:21 | disposition home or self-care (01) ==
PROVIDERS: Emergency Provider Emergency Medicine; Family Provider Internal Medicine; PCP Internal Medicine
DX: S09.90XA Unspecified injury of head, initial encounter (principal); S50.311A Abrasion of right elbow, initial encounter; M48.02 Spinal stenosis, cervical region; Z86.718 Personal history of other venous thrombosis and embolism; Z88.5 Allergy status to narcotic agent; Z90.49 Acquired absence of other specified parts of digestive tract; W18.30XA Fall on same level, unspecified, initial encounter; Y93.89 Activity, other specified; Y92.89 Other specified places as the place of occurrence of the external cause; Y99.9 Unspecified external cause status; Z23 Encounter for immunization
CPT/HCPCS: 70450; 72125; 72141; 74018; 85610; 90471; 90715; 99284; A4216

== ENCOUNTER 2018-12-09 23:27 | Inpatient (IN) | payer MEDICARE, SELFPAY ==
[2018-12-09 23:29] VITALS: BP 101/75; PULSE 111; RESP 14; TEMP 36.8; O2SAT 92; BMI 45.9
--- NOTE | 2018-12-09 23:42 | RAD_ITS ---
STUDY: X-RAY - RIGHT ELBOW REASON FOR EXAM: Female, 78 years old. Elbow pain TECHNIQUE: 4 view(s) of the elbow. COMPARISON: None. FINDINGS: There are osteophytes involving the radial head, olecranon process and lateral epicondyle.. Normal radiocapitellar and ulnotrochlear articulations. There is soft tissue edema.. RAD/Elbow min 3 Views IMPRESSION: Osteoarthrosis no fractures Soft tissue edema Electronically Signed: Benjie Hylton, at 0:43 EDT Tel , Service support ,
--- NOTE | 2018-12-09 23:42 | CT_ITS ---
STUDY: CT BRAIN WITHOUT CONTRAST REASON FOR EXAM: Female, 78 years old. Fell, trauma RADIATION DOSAGE (If Supplied By Facility): CTDIvol = ( 44.99 ) mGy, DLP = ( 812.98 ) mGycm TECHNIQUE: Transaxial CT imaging of the brain was performed without administration of intravenous contrast material. Individualized dose optimization techniques were used for this CT. COMPARISON: CT head 11/28/2018 FINDINGS: Normal soft tissue structures. Normal calvarium. There are stable central and cortical involutional changes. There are stable deep white matter periventricular hypodensities. Normal basal ganglia and thalami. Normal brainstem. Normal cerebellum. There is no intracranial hemorrhage. Normal visualized paranasal sinuses. CT/Brain/Head without Contrast IMPRESSION: Stable central and cortical involutional changes Stable small vessel old deep white matter ischemic changes Electronically Signed: Benjie Hylton, at 1:22 EDT Tel , Service support ,
--- NOTE | 2018-12-09 23:42 | ED.DCSUM_ITS ---
History of Present Illness Chief Complaint: Fall Narrative: Patient is a 78-year-old female who resents with a head injury. She is on warfarin. She uses a walker at baseline. She states her legs gave out and she hit her head. She denies any loss of consciousness headache or vomiting. However she states that she was told because the Coumadin anytime she has her head she needs to be checked out. She also fell on November 28 and injured her right elbow at that time and had a skin tear. She notes that it is co ntinued to be more painful since that time and she had again when she fell today as well. No chest pain or shortness of breath no abdominal or back pain. She denies any recent illness. Past Medical History - Allergies and Home Meds Allergies/Adverse Reactions: Allergies acetaminophen [From Vicodin] Allergy (Verified 12/09/18 23:28) Unknown hydrocodone bitartrate [From Vicodin] Allergy (Verified 12/09/18 23:28) Unknown Primary Care Physician: Ai Anguiano MD [Primary Care Provider] - Past Medical History: - - Diabetes, hypertension, hyperlipidemia, history of pulmonary embolism Surgical History: cholecystectomy, total hip arthroplasty - Bilateral., total knee arthroplasty - Bilateral., tonsillectomy, - - ORIF right ankle fracture, Tubal ligation. Smoking Status: Never smoker - Family History Maternal Family History: Reports: No pertinent history Paternal Family History: Reports: Heart Disease Review of Systems All systems negative except as indicated General: Denies: Fever Cardiovascular: Denies: Chest pain Respiratory: Denies: Dyspnea, Cough Gastrointestinal: Denies: Vomiting, Diarrhea Musculoskeletal: Reports: - - Right elbow pain Neurological: Denies: Headache Physical Exam Vital Signs/Narrative: Vital Signs Temp Pulse Resp BP Pulse Ox 12/09/18 23:29 98.3 F 111 H 14 101/75 92 Inital Vital Signs reviewed: Yes General: Well nourished, Well developed Head: Normocephalic Eyes: EOMI ENT: Moist mucous membranes Neck: Supple, Nontender Cardiovascular: - - Heart is regular, slightly tachycardic Respiratory: No distress, CTA bilaterally Abdomen: Soft, Nontender Extremities: - - Skin tear at the right elbow with surrounding erythema that is warm to the touch no pain with range of motion no fluctuance no drainage Skin: Normal color Neurological: Alert, Oriented x3, Normal Strength, Normal Sensation, - - GCS of 15 with no focal or lateralizing neurological deficits Psychological: Normal affect Diagnostic/Tx/Re-eval Impressions Brain CT 12/09/18 23:42 IMPRESSION: Stable central and cortical involutional changes Stable small vessel old deep white matter ischemic changes Electronically Signed: Benjie Warner, at 1:22 EDT Tel , Service support , Elbow X-Ray 12/09/18 23:42 IMPRESSION: Osteoarthrosis no fractures Soft tissue edema Electronically Signed: Benjie Hylton, at 0:43 EDT Tel , Service support , 12/09/18 23:42 Brain/Head without Contrast [CT] Stat Elbow min 3 Views [RAD] Stat Laboratory Results 12/10/18 12/10/18 12/10/18 00:52 00:52 01:13 WBC 10.4 RBC 4.56 Hgb 13.2 Hct 42.5 MCV 93.2 MCH 28.9 MCHC 31.1 L RDW Std Deviation 51.8 H RDW Coeff of Mona 15.4 H Plt Count 119 L MPV 8.7 Immature Gran % (Auto) 3.800 H Neut % (Auto) 86.5 H Lymph % (Auto) 4.4 L [place] % (Auto) 4.4 Eos % (Auto) 0.4 Baso % (Auto) 0.5 Absolute Neuts (auto) 9.0 H Absolute Lymphs (auto) 0.46 L Nucleated RBC % 0 Sodium 137 Potassium 4.2 Chloride 105 Carbon Dioxide 27.0 Anion Gap 5 BUN 25 H Creatinine 1.44 H Estim Creat Clear Calc 29.91 Est GFR (MDRD) Af Amer 46 L Est GFR (MDRD) Non-Af 38 L BUN/Creatinine Ratio 17.4 Glucose 273 H Calcium 8.6 Urine Color Yellow Urine Clarity Sl. Cloudy Urine pH 6.5 Ur Specific [place] 1.020 Urine Protein Negative Urine Glucose (UA) Normal Urine Ketones Negative Urine Occult Blood Negative Urine Nitrite Negative Urine Bilirubin Negative Urine Urobilinogen Normal Ur Leukocyte Esterase 25 H - Medical Decision Making Initially I obtained right elbow x-ray and CT of the head. No intracranial hemorrhage and no fracture. Visitor vocalized concern about the patient's ability to care for herself at home noting that the patient's is currently hospitalized at [facility]. Additionally the patient's sister was staying with her but had to leave yesterday. I discussed this with the patient. She has poor mobility and currently does not have any help at home. She did contact home health who is supposed to be meeting with her on Tuesday but she is uncertain if she will be able to care for herself until then. We attempted to ambulate her here and she was unable to ambulate even with assistance from 2 nurses and a walker. Therefore she will require hospitalization either for placement or to arrange for home health care services. I did check laboratory studies including urinalysis which are notable only for 3.8% immature granulocytes. EKG shows sinus tachycardia at a rate of 102 with a left anterior fascicular block. I did give oral Keflex for the patient's right elbow cellulitis. ED Disposition - Plan for ED Patient: Disposition: Acute Care [facility] Diagnosis: Fall, Cellulitis of right elbow, Debility Referrals: Ai Anguiano MD [Primary Care Provider] -
[2018-12-10] VITALS (7 sets, daily range): BP systolic 107–137; BP diastolic 65–79; PULSE 78–103; RESP 12–20; TEMP 36.8–36.9; O2SAT 89–96; BMI 44.8
--- NOTE | 2018-12-10 00:38 | EKG12_ITS ---
Test Reason : Blood Pressure : / mmHG Vent. Rate : 102 BPM Atrial Rate : 102 BPM P-R Int : 150 ms QRS Dur : 090 ms QT Int : 366 ms P-R-T Axes : 035 -45 034 degrees QTc Int : 477 ms Sinus tachycardia Low voltage QRS Left anterior fascicular block Inferior infarct , age undetermined Abnormal ECG Confirmed by DENIS MEJIA, TAYLOR ([id number]), index editor YUDITH PADRON ([id number]) on 12/12/2018 11:44:07 AM Referred By: CHANTELL Confirmed By:LIANA BARRIOS MD
[2018-12-10 00:59] LABS: Absolute Lymphocyte Count 0.46 X10^3/uL (0.83-4.51); Basophil# 0.05 X10^3/uL; Basophil% 0.5 % (0-1); Eosinophil# 0.04 X10^3/uL; Eosinophils% 0.4 % (0-5); Hematocrit 42.5 % (37-47); Hemoglobin 13.2 g/dL (12.0-15.0); Lymphocyte # 0.46 X10^3/ul (4.0); Lymphocyte % 4.4 % (19-41); Mean Corp Hgb Conc 31.1 g/dL (32-36); Mean Corpuscular Hgb 28.9 pg (27.0-32.0); Mean Corpuscular Volume 93.2 fL (81-99); Mean Platelet Vol. 8.7 fl (6.2-12.0); Monocyte# 0.46 X10^3/uL; Monocyte% 4.4 % (0-10); NRBC Flagged by Analyzer 0 % (0-5); Neutrophil # 8.95 X10^3/uL (2.7-7.7); Neutrophil % 86.5 % (47-70); POSITIVE DIFFERENTIAL YES; Platelet Count 119 K/mm3 (150-450); RBC Distribution Width CV 15.4 % (11.6-14.6); RBC Distribution Width SD 51.8 fl (35.1-43.9); Red Blood Count 4.56 M/mm3 (4.2-5.4); White Blood Count 10.4 K/mm3 (4.4-11.0)
[2018-12-10 01:12] LABS: Anion Gap 5 (5-15); BUN 25 mg/dL (7-18); BUN/Creat Ratio 17.4 RATIO (10-20); Calcium,Total 8.6 mg/dL (8.5-10.1); Chloride 105 mmol/L (98-107); Creatinine, Serum 1.44 mg/dL (0.55-1.02); Differential Indicated SCAN CRITERIA MET; EST Glomerular Filtration Rate 38 mL/min (>60); Est Glom Filt Rate - Afr Amer 46 mL/min (>60); Estimated Creatinine Clearance 29.91 ml/min; Glucose 273 mg/dL (74-106); Potassium 4.2 mmol/L (3.5-5.1); Sodium Level 137 mmol/L (136-145)
--- NOTE | 2018-12-10 01:35 | PCM.HP.STD ---
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5 - Hyperlipidemia, unspecified (11) History of pulmonary embolism Status: Chronic History of Present Illness Date of Admission: 12/10/18 Chief Complaint: Fall The patient is a 78 y/o F w/ PMHx: CKD stage III, OA, RLS, Hx Thoracic AA, Hypothyroidism, diabetes mellitus type II, HTN, HLD, Chronic COPD, Morbid Obesity, Anxiety and Depression, Hx Breast CA, Hypercoaguable state, YOLY who presents to the [facility] ED on 12/10/18 with history of initially falling on 11/28/18, mechanical with at that time skin tear to her R elbow with evaluation in the emergency room unremarkable and discharge to home with since mild debility, fatigue with onset over the last 24-48 hours subjective fevers and chills with progressively worsening erythema to the right elbow although denies any discharge or purulent material or indurated regions with recurrent fall despite using walker, hit her head with no loss of consciousness prompting return to the emergency room. Work-up in the ED included T 98.3, heart rate 111, BP 101/75, respiratory rate 14, 92% on room air, CBC with WC 10.4, hemoglobin 13.2, platelet 119 with left shift, BMP with BUN/creatinine 25/1.44, glucose 273, CT head with stable chronic and cortical involutional changes, small vessel old deep white matter ischemic changes with no acute intracranial findings, plain film right elbow with osteoarthrosis with no fractures, soft tissue edema, EKG with SR without acute evidence of ischemia. Past Medical History Past Medical History (Chronic Problems): Chronic Problems (Last Reviewed 10/25/18 @ 15:56 by Alex Lama MD) YOLY (obstructive sleep apnea) (Chronic) Hypertension (Chronic) Diabetes mellitus, type II (Chronic) Morbid obesity (Chronic) Lupus anticoagulant disorder (Chronic) Thoracic aortic aneurysm (Chronic) Essential (primary) hypertension (Chronic) Hyperlipidemia (Chronic) History of pulmonary embolism (Chronic) Medical History: Medical History (Last Reviewed 10/25/18 @ 15:56 by Alex Lama MD) Lupus anticoagulant disorder (Chronic) D68.62 Thoracic aortic aneurysm (Chronic) I71.2 Essential (primary) hypertension (Chronic) I10 Hyperlipidemia (Chronic) E78.5 History of pulmonary embolism (Chronic) Z86.711 Anxiety F41.9 Cellulitis of right lower extremity L03.115 Chronic obstructive pulmonary disease J44.9 Depression F32.9 Diabetes mellitus E11.9 Diabetes mellitus type 2 in obese E11.9, E66.9 Hypothyroidism E03.9 Insomnia G47.00 Left ureteral stone N20.1 Obesity E66.9 Obstructive sleep apnea G47.33 Osteoarthritis M19.90 Restless leg syndrome Traumatic hematoma of right foot S90.31XA Type 2 diabetes mellitus with diabetic polyneuropathy E11.42 Wound of right foot S91.301A Breast cancer, left breast C50.912 Hypercoagulable state (Inactive) D68.59 Allergies acetaminophen [From Vicodin] Allergy (Verified 12/09/18 23:28) Unknown hydrocodone bitartrate [From Vicodin] Allergy (Verified 12/09/18 23:28) Unknown Home Medications: Ambulatory Orders Medication Instructions Recorded Levothyroxine [Synthroid] 112 mcg PO DAILY 01/24/14 Simvastatin [Zocor] 40 mg PO QHS 01/24/14 Anastrozole [Arimidex] 1 mg PO DAILY 03/17/15 traZODone [Desyrel] 150 mg PO QHS 05/07/16 Clonazepam [Klonopin] 1 mg PO DAILY PRN PRN #30 tablet 06/09/16 Bupropion HCl [Bupropion Xl] 150 mg PO DAILY 04/22/18 Prednisone 5 mg PO QODAY 04/22/18 Fluticasone Furoate [Arnuity 1 puff INHALATION QHS 05/04/18 Ellipta] Furosemide [Lasix] 20 mg PO DAILY 05/04/18 Warfarin Sodium 1.5 mg PO MOWEFR 05/04/18 Warfarin Sodium 3 mg PO SUTUTHSA 05/04/18 Spironolactone [Aldactone] 25 mg PO DAILY 05/10/18 traMADol [Ultram] 50 mg PO Q6H PRN PRN tablet 05/18/18 Albuterol Inhaler [Ventolin Hfa] 2 puff INHALATION Q6HWA.RT PRN 08/01/18 Prednisone 10 mg PO QODAY 08/01/18 Surgical History: Surgical History (Last Reviewed 10/25/18 @ 15:56 by Alex Lama MD) History of open reduction and internal fixation (ORIF) procedure Z98.890 LLE History of left hip replacement Z96.642 History of lumpectomy Z98.890 History of right hip replacement Z96.641 History of total left knee replacement Z96.652 Surgical History: cholecystectomy, - - ORIF right ankle fracture, Tubal ligation, tonsillectomy, left total hip replacement x2, right total hip replacement, breast lumpectomy, left lower extremity ORIF, left total knee replacement x2, right total knee replacement. 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 Smoking Status: Never smoker Tobacco Use: Secondhand - Patient with secondhand tobacco exposure. Alcohol: None Drugs: None - *Family History Maternal History Items: Heart Disease Paternal History Items: Heart Disease Review of Systems Constitutional: Reports: Anorexia, Chills, Fever, Malaise, Weakness, Fatigue. Denies: Weight Change HEENT: Denies: Head Aches, Sinus Congestion, Sinus Drainage Cardiovascular: Denies: Chest Pain, Palpitations Respiratory: Denies: Cough, Shortness of breath at rest, Sputum production Gastrointestinal: Denies: Abdominal Pain, Nausea, Vomiting Genitourinary: Denies: Dysuria Musculoskeletal: Reports: Arm Pain. Denies: Joint Pain, Joint Tenderness Skin: Reports: Skin Changes, Wounds. Denies: Rash Neurological: Denies: Numbness, Tingling, Focal weakness Psychiatric: Reports: Anxiety, Depression. Denies: Homicidal Ideations, Suicidal Ideations Hematologic/ Lymphatic: Reports: Anemia, Easy Bruising, Easy Bleeding VTE Information - Inpt Only VTE Present on Admission: No VTE Mechan Device Prophylaxis: SCD's VTE Pharm Prophylaxis ordered?: Yes Patient Problems: Active and Suspected Problems (Last Reviewed 10/25/18 @ 15:56 by Alex Lama MD) Fall (Acute) Cellulitis of right elbow (Acute) Debility (Acute) Subjective: Seated upright in ED bed, fatigued appearance, no acute distress. Objective: Physical Examination: General: awake, alert, oriented x 3 and cooperative, seated upright in the ED bed, fatigued appearance, no acute distress. Skin: normal color, turgor, no icterus, cyanosis except occasional very staged ecchymoses to the extremity, right elbow with erythema with streaking extending both proximally and distally, tender to palpation at the site of initial skin tear, no market induration or evidence of collection, chronic venous stasis skin changes to bilateral lower extremities, dry skin. HEENT: AT/NC, EOMI, PERRLA, moderately MM, no carotid bruits or JVD noted. Lungs: CTA bilaterally, moderate effort, mild decrease BL bases, no rales, ronchi or wheezing. Heart: Regular rate and rhythm; no gallop, rub audible. Abdomen: soft, morbidly obese, NTTP, ND, distant but normal BS, unable to discern HSM secondary to habitus. Extremities: no cyanosis, clubbing, chronic bilateral lower extremity venous stasis skin changes, notable chronic edema, pedal to proximal beckman, 2+ pitting. Neurological: patient awake, alert, oriented x 3; cognitive function intact; pupils equally reactive to light and accomodation; cranial nerves II-XII grossly normal, moving all 4 extremities, no focal deficits, strength severely global decrease secondary to acute presentation. Psychiatric: affect appears mildly flat, fatigued, no acute evidence of depressive or anxiety feelings. - Physical Exam Vital Signs Temp Pulse Resp BP Pulse Ox 98.3 F 111 H 14 101/75 92 12/09/18 23:29 12/09/18 23:29 12/09/18 23:29 12/09/18 23:29 12/09/18 23:29 Oxygen Delivery Method Room Air Weight: 276 lb 3.827 oz Body Mass Index (BMI) 45.9 Finger Stick Blood Glucose 139 Laboratory Tests Past 24 Hrs 12/10/18 12/10/18 12/10/18 00:52 00:52 01:13 WBC 10.4 RBC 4.56 Hgb 13.2 Hct 42.5 MCV 93.2 MCH 28.9 MCHC 31.1 L RDW Std Deviation 51.8 H RDW Coeff of Mona 15.4 H Plt Count 119 L MPV 8.7 Immature Gran % (Auto) 3.800 H Neut % (Auto) 86.5 H Lymph % (Auto) 4.4 L [place] % (Auto) 4.4 Eos % (Auto) 0.4 Baso % (Auto) 0.5 Absolute Neuts (auto) 9.0 H Absolute Lymphs (auto) 0.46 L Nucleated RBC % 0 Sodium 137 Potassium 4.2 Chloride 105 Carbon Dioxide 27.0 Anion Gap 5 BUN 25 H Creatinine 1.44 H Estim Creat Clear Calc 29.91 Est GFR (MDRD) Af Amer 46 L Est GFR (MDRD) Non-Af 38 L BUN/Creatinine Ratio 17.4 Glucose 273 H Calcium 8.6 Urine Color Cancelled Urine Clarity Cancelled Urine pH Cancelled Ur Specific [place] Cancelled U Specif Grav (Refrac) Cancelled Urine Protein Cancelled Urine Glucose (UA) Cancelled Urine Ketones Cancelled Urine Occult Blood Cancelled Urine Nitrite Cancelled Urine Bilirubin Cancelled Urine Urobilinogen Cancelled Ur Leukocyte Esterase Cancelled Urine RBC Cancelled Urine WBC Cancelled Ur Squamous Epith Cells Cancelled Ur Transition Epith Cell Cancelled Ur Renal Epithelial Cell Cancelled Calcium Oxalate Crystal Cancelled Uric Acid Crystals Cancelled Triple Phos Crystals Cancelled Other Crystals Cancelled Amorphous Sediment Cancelled Urine Bacteria Cancelled Hyaline Casts Cancelled Fine Granular Casts Cancelled Coarse Granular Casts Cancelled Waxy Casts Cancelled RBC Casts Cancelled WBC Casts Cancelled Urine Mucus Cancelled Urine Trichomonas Cancelled Urine Yeast Cancelled Assessment/Plan All Active Problems (Last Reviewed 10/25/18 @ 15:56 by Alex Lama MD) Fall (Acute) Cellulitis of right elbow (Acute) Debility (Acute) The patient is a 78 y/o F w/ PMHx: CKD stage III, OA, RLS, Hx Thoracic AA, Hypothyroidism, diabetes mellitus type II, HTN, HLD, Chronic COPD, Morbid Obesity, Anxiety and Depression, Hx Breast CA, Hypercoaguable state, YOLY who presents to the [facility] ED on 12/10/18 with history of recurrent falls, right elbow pain, erythema and onset subjective fevers and chills. (1) Right Elbow Intractable Pain, Cellulitis: 11/28/18 fall w/ injury with skin tear, now infected and recent fall with worsened pain, will maintain on IV ancef, plan repeat CBC in AM, continue affected extremity elevation above heart when seated and in bed, monitor erythema outline with VS checks. (2) Recurrent Falls, Instability: Patient with repeat fall, evaluated in the ED earlier in the month, now recurrence, very high fall risk and for injury especially given anticoagulation, CT head with stable chronic and cortical involutional changes, small vessel old deep white matter ischemic changes with no acute intracranial findings, plain film right elbow with osteoarthrosis with no fractures, soft tissue edema, PT, OT, CM for discharge planning, likely benefit from SNF. (3) Chronic COPD: ATC duonebs, PRN albuterol, HOB, IS parameters. (4) Hypertension: Continue home regimen including Lasix, spironolactone, PRN hydralazine. (5) Hx breast cancer: We will continue home Arimidex regimen. (6) Hyperlipidemia: Continue home statin regimen. (7) Chronic Kidney Disease Stage III: Admission BUN/Cr 25/1.44, baseline renal function 1.2-1.6, stable, repeat BMP in AM. (8) Anxiety and depression: We will continue home bupropion, clonidine and trazodone regimen. (9) Hypercoagulable state with lupus anticoagulant disorder, Hx Prior PE: We will continue home Coumadin regimen with INR trending, not obtained on admission, pending now. (10) Morbid Obesity: Weight loss and lifestyle changes encouraged, nutrition consulted. (11) Diabetes mellitus type II: Current medication list without regimen, hemoglobin A1c pending, ADA diet, accu checks w/ ISS. (12) Hypothyroidism: Continue home synthroid regimen, TSH pending. (13) Chronic BL LE Lymphedema: OLEGARIO wraps, eucerin PRN. (14) YOLY: BIPAP q HS. (15) DVT prophylaxis: SCDs, will continue Coumadin if appropriate, pending INR upon admission. (16) CODE status: Patient's is her healthcare power of wrist closer and she does have living will in place. Discussed CODE status at length including difference between FULL code, DNR-CCA and DNR-CC status. Following discussions about the differences in these status, requested continuation of DNR-CCA, no intubation status. Advanced Care Planning Face to Face Time: 16 minutes. Code Visit Inpatient E&M: 35574 Init Hosp L3 Procedures: 07197 Advncd Care Plan 30 Min
[2018-12-10] MEDS: Cephalexin 250 MG Capsule 500 MG PO (01:40)
[2018-12-10 01:53] LABS: International Normalized Ratio 3.1; Prothrombin Time (Protime)PT. 32.1 SECONDS (11.7-14.9)
[2018-12-10] MEDS: traMADol 50 MG Tablet PO ×2 (03:27→09:10)
[2018-12-10] MEDS: 0.9% Normal Saline 1,000 ML 100 ML IV (03:29)
[2018-12-10] MEDS: Cefazolin 1 GM/50 ML BAG IV ×3 (03:37→21:11)
[2018-12-10 05:19] LABS: Squamous Epithelial Cells - UA 0 SEEN /hpf (5-10)
[2018-12-10 05:28] LABS: Color, Urine Yellow (Yellow); Glucose, Dipstick 1000 mg/dl (Normal); Ketone-Dipstick 5 mg/dl (Negative); Leukocyte Esterase-Dipstick 25 /ul (Negative); Nitrite-Dipstick Positive (Negative); Occult Blood-Urine 50 /ul (Negative); Protein-Dipstick 100 mg/dl (Negative); Specific Gravity, Urine 1.025 (1.002-1.030); Urine Bilirubin Dipstick Negative (Negative); Urine Clarity Sl. Cloudy (Clear); Urine Urobilinogen 1 mg/dl (Normal)
[2018-12-10 05:36] LABS: Bacteria 3+ /hpf (None Seen); Coarse Granular Cast 0-5 SEEN /lpf (0-5 /lpf); White Blood Cells 0-5 SEEN /hpf (0-5)
[2018-12-10 05:37] LABS: Amorphous Sediment R; Mucous, Urine 1+ /hpf (<or=2+); Red Blood Cells-Urine 0-5 SEEN /hpf (0-5)
[2018-12-10] MEDS: Nystatin Powder 15gm Bottle 1 APPLIC TOPICAL ×3 (06:26→21:12)
[2018-12-10] MEDS: Levothyroxine 112 MCG Tablet PO (06:26)
[2018-12-10] MEDS: Insulin Lispro 100 UNIT/ML INSULN.PEN SC ×4 (06:37→21:13)
[2018-12-10] MEDS: 0.9% NaCl Peripheral Flush Adult/Peds IV ×2 (06:38→21:13)
[2018-12-10 07:05] LABS: Bedside Glucose 230 mg/dL (70-110)
[2018-12-10 07:20] LABS: Absolute Neutrophil Count 7.7 X10^3/uL (2.0-7.7); Basophil# 0.01 X10^3/uL; Basophil% 0.1 % (0-1); Eosinophil# 0.05 X10^3/uL; Eosinophils% 0.5 % (0-5); Hematocrit 37.2 % (37-47); Hemoglobin 11.4 g/dL (12.0-15.0); Lymphocyte % 5.5 % (19-41); Mean Corp Hgb Conc 30.6 g/dL (32-36); Mean Corpuscular Hgb 28.4 pg (27.0-32.0); Mean Corpuscular Volume 92.8 fL (81-99); Mean Platelet Vol. 8.7 fl (6.2-12.0); Monocyte# 0.43 X10^3/uL; Monocyte% 4.7 % (0-10); NRBC Flagged by Analyzer 0 % (0-5); Neutrophil # 7.69 X10^3/uL (2.7-7.7); Neutrophil % 84.5 % (47-70); POSITIVE DIFFERENTIAL YES; Platelet Count 108 K/mm3 (150-450); RBC Distribution Width CV 15.5 % (11.6-14.6); RBC Distribution Width SD 51.6 fl (35.1-43.9); Red Blood Count 4.01 M/mm3 (4.2-5.4); White Blood Count 9.1 K/mm3 (4.4-11.0)
[2018-12-10 07:24] LABS: International Normalized Ratio 3.4; Prothrombin Time (Protime)PT. 34.6 SECONDS (11.7-14.9)
[2018-12-10 07:25] LABS: Differential Indicated SCAN CRITERIA MET
[2018-12-10 07:28] LABS: Anion Gap 5 (5-15); BUN 22 mg/dL (7-18); BUN/Creat Ratio 18.5 RATIO (10-20); Calcium,Total 8.5 mg/dL (8.5-10.1); Chloride 107 mmol/L (98-107); Creatinine, Serum 1.19 mg/dL (0.55-1.02); EST Glomerular Filtration Rate 47 mL/min (>60); Est Glom Filt Rate - Afr Amer 57 mL/min (>60); Estimated Creatinine Clearance 36.19 ml/min; Glucose 226 mg/dL (74-106); Potassium 3.9 mmol/L (3.5-5.1); Sodium Level 138 mmol/L (136-145)
[2018-12-10 08:00] LABS: Hemoglobin A1c 8.8 % (4.2-6.3)
[2018-12-10] MEDS: predniSONE 10 MG Tablet PO (09:11)
[2018-12-10] MEDS: Furosemide 20 MG Tablet PO (09:11)
[2018-12-10] MEDS: buPROPion (XL) 150 MG TABLET.XL PO (09:13)
[2018-12-10] MEDS: Anastrozole 1 MG Tablet PO (09:13)
[2018-12-10] MEDS: Spironolactone 25 MG Tablet PO (09:13)
[2018-12-10] MEDS: Glucerna Shake 120 ML LIQUID PO (09:17)
[2018-12-10 13:06] LABS: Bedside Glucose 251 mg/dL (70-110)
--- NOTE | 2018-12-10 14:04 | NURSING ---
Pt has not voided since this nurse has been here. Feels urge. Bladder scanned for 450. Assisted onto bed youngblood and pt was able to urinate. some of the urine was in the bed, other was in youngblood. This nurse bladder scanned her after she voided and obtained to 250.
[2018-12-10 16:36] LABS: Bedside Glucose 235 mg/dL (70-110)
--- NOTE | 2018-12-10 16:52 | RAD_ITS ---
STUDY: X-RAY - THORACIC SPINE REASON FOR EXAM: Female, 78 years old. Trauma, back pain TECHNIQUE: 3 view(s) of the thoracic spine were obtained. COMPARISON: None. FINDINGS: Normal kyphosis of the thoracic spine. There is a mild midthoracic dextroscoliosis. There is demineralization of the thoracic spine with endplate spondylosis. Normal disc space heights. The soft tissue structures are unremarkable. RAD/Thoracic Spine 3 Views IMPRESSION: Generalized osteopenia. Diffuse endplate spondylosis. There is no evidence of fracture or subluxation. Electronically Signed: Chester Killian MD at 20:06 EDT , Service support ,
[2018-12-10] MEDS: HYDROcodone Bitartrate/Apap 5/325 Tablet PO (17:17)
--- NOTE | 2018-12-10 17:43 | PCM.HOSP.N ---
Hospitalist Note She was seen and examined briefly today, she complains of upper and lower back pain, she did not have back x-rays when evaluated in the emergency room last night. Pain change her pain medication to [place], she was unsure whether she wanted to take this due to concerns about addiction, I told her that her concerns were not well founded and that she only needs to take the medication when needed. I will order thoracic and lumbar spine x-rays on the patient, I am unsure if the patient could have a compression fracture of her back. Patient states her is in the hospital currently and he will most likely be going to TCU for rehab services soon-I asked her whether she would consider going to TCU for alf services and she replied yes.
--- NOTE | 2018-12-10 18:00 | RAD_ITS ---
STUDY: X-RAY - LUMBAR SPINE REASON FOR EXAM: Female, 78 years old. Trauma TECHNIQUE: 3 view(s) of the lumbar spine were obtained. COMPARISON: None FINDINGS: Normal lumbar lordosis. There is no substantial scoliosis. There is a normal alignment of the vertebrae. There is a large dense anterior bridging osteophyte between the L2 and L3 vertebral bodies. There is multi-level degenerative disc disease with multi-level disc space narrowing. There is no demonstrated fracture. The soft tissue structures are unremarkable. RAD/Lumbar Spine 2 or 3 Views IMPRESSION: Degenerative changes of the spine, as detailed above. Electronically Signed: Chester Killian MD at 20:05 EDT , Service support ,
[2018-12-10] MEDS: Atorvastatin Calcium 20 MG Tablet PO (21:12)
[2018-12-10] MEDS: traZODone 50 MG Tablet 150 MG PO (21:12)
[2018-12-10 21:55] LABS: Bedside Glucose 178 mg/dL (70-110)
--- NOTE | 2018-12-10 22:05 | CPS ---
patient informed RT that she wears bipap at ipap 14 epap 10.
[2018-12-11] VITALS (9 sets, daily range): BP systolic 115–145; BP diastolic 54–92; PULSE 73–102; RESP 12–19; TEMP 36.3–36.9; O2SAT 90–96
[2018-12-11 06:20] LABS: Prothrombin Time (Protime)PT. 40.6 SECONDS (11.7-14.9)
[2018-12-11 06:40] LABS: International Normalized Ratio 4.2
[2018-12-11] MEDS: Cefazolin 1 GM/50 ML BAG IV ×2 (06:45→14:19)
[2018-12-11] MEDS: 0.9% NaCl Peripheral Flush Adult/Peds IV ×2 (06:46→14:26)
[2018-12-11] MEDS: Levothyroxine 112 MCG Tablet PO (06:48)
[2018-12-11] MEDS: Nystatin Powder 15gm Bottle 1 APPLIC TOPICAL ×3 (06:48→21:07)
[2018-12-11 07:00] LABS: Bedside Glucose 130 mg/dL (70-110)
[2018-12-11] MEDS: traMADol 50 MG Tablet PO ×3 (09:17→18:13)
[2018-12-11] MEDS: Furosemide 20 MG Tablet PO (09:17)
[2018-12-11] MEDS: Anastrozole 1 MG Tablet PO (09:17)
[2018-12-11] MEDS: buPROPion (XL) 150 MG TABLET.XL PO (09:17)
[2018-12-11] MEDS: Senna/Docusate Sodium 1 Tablet PO (09:17)
[2018-12-11] MEDS: Spironolactone 25 MG Tablet PO (09:17)
[2018-12-11 11:06] LABS: Bedside Glucose 176 mg/dL (70-110)
--- NOTE | 2018-12-11 11:11 | CASEMGMT ---
Addendum entered by Chelly Sullivan 12/11/18 11:30: A list of nursing homes that are in network with patient's insurance was given to patient. Chelly LATHAM Original Note: SW met with patient as she expressed interest in going to TCU. SW told patient that SW is waiting on a return call to see if there is any availability in TCU. SW told her to be thinking of a 2nd and 3rd choice should TCU be full. SW will give her a list. Chelly LATHAM
--- NOTE | 2018-12-11 11:38 | CASEMGMT ---
[facility]RON spoke with [facility] and they will have a bed for patient. She will start the pre-cert. BYRON let patient know that TCU will have a bed for her pending her insurance approving. Chelly LATHAM
[2018-12-11] MEDS: Insulin Lispro 100 UNIT/ML INSULN.PEN SC ×3 (11:43→21:07)
[2018-12-11] MEDS: Acetaminophen 325 MG Tablet 650 MG PO ×2 (11:47→21:06)
[2018-12-11] MEDS: cycloBENZAPRine HCl 5 MG TABLET PO ×2 (12:25→21:06)
--- NOTE | 2018-12-11 16:04 | PCM.PN.HOSP ---
Patient Problems: Active and Suspected Problems (Last Reviewed 10/25/18 @ 15:56 by Alex Lama MD) Fall (Acute) Cellulitis of right elbow (Acute) Debility (Acute) Subjective: Complains of back pain through upper back post fall. Vitals/I&O's: Vital Signs Temp Pulse Resp BP Pulse Ox 36.8 C 102 H 18 115/71 95 12/11/18 09:10 12/11/18 09:10 12/11/18 09:10 12/11/18 09:10 12/11/18 09:10 Oxygen Flow Rate (L/min) 2 Oxygen Delivery Method Nasal Cannula Weight: 122.1 kg Body Mass Index (BMI) 44.8 Finger Stick Blood Glucose 139 Intake and Output for Last 24 Hours 12/09/18 12/10/18 12/11/18 23:59 23:59 23:59 Intake Total 1830 / 1830 700 / 700 Output Total 250 / 250 Balance 1580 / 1580 700 / 700 General: Alert, No apparent distress HEENT: Atraumatic, Normocephalic Oral: Moist Mucosa, No Gingival or Mucosal Lesions/ Ulcerations Neck: No Nodes, Thyroid Normal Size and Texture Lungs: Clear to auscultation, Normal air movement, No rhonchi, No wheeze, No rales Cardiovascular: Regular rate, Regular Rhythm, Normal S1, Normal S2, No murmurs Abdomen: Bowel Sounds Present, Soft, Non Tender, Non-Distended, No Hepato-splenomegaly, Obese Extremities: No Calf Tenderness, Edema Skin: - - scabs overlying right elbow. macular erythema of distal lateral right forearm. Musculoskeletal: No Tenderness to Palpation of Joints or Extremities, No Muscle Wasting, - - reproducible paraspinal muscle tenderness moreso on the right. Psych/Mental Status: Normal Affect, Appropriate Microbiology Past 72 Hours 12/10/18 05:05 Urine, Catheterized Urine Culture - Preliminary Presumptive E. coli Laboratory Results 12/10/18 16:32: POC Glucose 235 H 12/10/18 21:11: POC Glucose 178 H 12/11/18 05:30: PT 40.6 H, INR 4.2 H* 12/11/18 06:45: POC Glucose 130 H 12/11/18 11:02: POC Glucose 176 H Current Medications Acetaminophen (Tylenol) 650 mg PO Q6H PRN PRN PRN Reason: Non-cardiac pain (mod-severe) Last Admin: 12/11/18 11:47 Dose: 650 mg Documented by: Albuterol Sulfate (Ventolin Aerosols) 2.5 mg INHALATION Q2H PRN PRN PRN Reason: dyspnea, wheezing Albuterol/Ipratropium (Duoneb) 3 ml INHALATION Q6HWA.RT [facility] Last Admin: 12/11/18 07:40 Dose: Not Given Documented by: Anastrozole (Arimidex) 1 mg PO DAILY [facility] Last Admin: 12/11/18 09:17 Dose: 1 mg Documented by: Atorvastatin Calcium (Lipitor) 20 mg PO QHS [facility] Last Admin: 12/10/18 21:12 Dose: 20 mg Documented by: Bupropion HCl (Wellbutrin Xl) 150 mg PO DAILY [facility] Last Admin: 12/11/18 09:17 Dose: 150 mg Documented by: Clonazepam (Klonopin) 1 mg PO DAILY PRN PRN PRN Reason: restless leg syndrome Cyclobenzaprine HCl (Cyclobenzaprine Hcl) 5 mg PO TID PRN PRN Reason: MUSCLE SPASM Dextrose (D50w Syringe) 0 gm IV X1 PRN; Protocol PRN Reason: Hypoglycemia Emollient Ointment (Eucerin Intensive Repair) 1 applic TOPICAL 4X/DAY PRN PRN; Protocol PRN Reason: intertrigo Furosemide (Lasix) 20 mg PO DAILY [facility] Last Admin: 12/11/18 09:17 Dose: 20 mg Documented by: Glucagon () 1 mg IM .X1 PRN PRN Reason: Hypoglycemia Hydralazine HCl (Apresoline Iv) 10 mg IV Q4H PRN PRN PRN Reason: SBP > 160 Cefazolin Sodium () 1 gm in 50 mls @ 150 mls/hr IV Q8 [facility] Last Infusion: 12/11/18 14:39 Dose: Infused Documented by: Insulin Human Lispro (Humalog Kwikpen (Bkc)) 0 unit SC ACHS [facility]; Protocol Last Admin: 12/11/18 11:43 Dose: 1 u Documented by: Levothyroxine Sodium (Synthroid) 112 mcg PO DAILY@0600 [facility] Last Admin: 12/11/18 06:48 Dose: 112 mcg Documented by: Nystatin (Mycostatin Powder) 1 applic TOPICAL TID [facility]; Protocol Last Admin: 12/11/18 14:20 Dose: 1 applicatio Documented by: Ondansetron HCl (Zofran) 4 mg IV Q8H PRN PRN PRN Reason: NAUSEA/VOMITING Prednisone () 5 mg PO QODAY@0800 [facility] Last Admin: 12/10/18 09:15 Dose: Not Given Documented by: Prednisone () 10 mg PO QODAY@0800 [facility] Last Admin: 12/10/18 09:11 Dose: 10 mg Documented by: Senna/Docusate Sodium (Senokot-S, Yola-Colace) 1 tablet PO DAILY PRN PRN PRN Reason: CONSTIPATION Last Admin: 12/11/18 09:17 Dose: 1 tablet Documented by: Sodium Chloride () 10 - 40 ml IV UD PRN PRN Reason: SALINE FLUSH Last Admin: 12/11/18 14:26 Dose: 10 ml Documented by: Spironolactone (Aldactone) 25 mg PO DAILY [facility] Last Admin: 12/11/18 09:17 Dose: 25 mg Documented by: Tramadol HCl (Ultram) 50 - 100 mg PO Q4H PRN PRN PRN Reason: MODERATE PAIN (4-5/10) Last Admin: 12/11/18 14:20 Dose: 100 mg Documented by: Trazodone HCl (Desyrel) 150 mg PO QHS [facility] Last Admin: 12/10/18 21:12 Dose: 150 mg Documented by: Warfarin Sodium (Coumadin (Pbkc)) 3 mg PO SuTuThSa@1700 [facility] Last Admin: 12/10/18 17:17 Dose: 3 mg Documented by: Warfarin Sodium (Coumadin (Pbkc)) 1.5 mg PO MoWeFr@1700 [facility] Medical Necessity - Tobacco Use Smoking Status: Never smoker Tobacco Use: Secondhand Assessment/Plan All Active Problems (Last Reviewed 10/25/18 @ 15:56 by Alex Lama MD) Fall (Acute) Cellulitis of right elbow (Acute) Debility (Acute) 1. Possible right elbow cellulitis I'm not sure patient has actual cellulitis of her elbow, versus bursitis change cefazolin to cephalexin PO for 5 more days, to complete 7 days of abx 2. Back pain xrays showed no obvious fracture may be muscle strain cyclobenzaprine reassurance provided. 3. Debility awaiting on insurance authorization. 4. COPD stable continue BDs and chronic prednisone follow up with pulm as outpt 5. Lupus anticoagulant anticoagulated hold coumadin until INR less than or equal to 3. 6. VTE prophylaxis: low-risk as patient is anticoagulated. Code Visit Inpatient E&M: 16927 Subs Hosp L2
[2018-12-11 17:21] LABS: Bedside Glucose 157 mg/dL (70-110)
[2018-12-11 21:06] LABS: Bedside Glucose 185 mg/dL (70-110)
[2018-12-11] MEDS: traZODone 50 MG Tablet 150 MG PO (21:06)
[2018-12-11] MEDS: Atorvastatin Calcium 20 MG Tablet PO (21:06)
[2018-12-11] MEDS: Cephalexin 500 MG Capsule PO (21:06)
[2018-12-12] VITALS (10 sets, daily range): BP systolic 109–137; BP diastolic 64–89; PULSE 75–98; RESP 12–20; TEMP 36.6–37.1; O2SAT 92–97
[2018-12-12] MEDS: traMADol 50 MG Tablet PO ×3 (00:26→09:52)
[2018-12-12] MEDS: Cephalexin 500 MG Capsule PO ×3 (05:14→21:58)
[2018-12-12] MEDS: Levothyroxine 112 MCG Tablet PO (05:14)
[2018-12-12] MEDS: cycloBENZAPRine HCl 5 MG TABLET PO ×2 (05:15→11:11)
[2018-12-12] MEDS: Nystatin Powder 15gm Bottle 1 APPLIC TOPICAL ×3 (05:15→21:58)
[2018-12-12] MEDS: Insulin Lispro 100 UNIT/ML INSULN.PEN SC ×4 (06:40→21:58)
[2018-12-12 06:46] LABS: Bedside Glucose 163 mg/dL (70-110)
[2018-12-12 07:03] LABS: International Normalized Ratio 3.1; Prothrombin Time (Protime)PT. 32.2 SECONDS (11.7-14.9)
[2018-12-12] MEDS: Acetaminophen 325 MG Tablet 650 MG PO ×2 (07:34→16:31)
[2018-12-12] MEDS: predniSONE 10 MG Tablet PO (07:34)
[2018-12-12] MEDS: predniSONE 5 MG Tablet PO (07:34)
[2018-12-12] MEDS: Spironolactone 25 MG Tablet PO (09:13)
[2018-12-12] MEDS: Anastrozole 1 MG Tablet PO (09:13)
[2018-12-12] MEDS: buPROPion (XL) 150 MG TABLET.XL PO (09:13)
[2018-12-12] MEDS: 0.9% NaCl Peripheral Flush Adult/Peds IV (09:13)
[2018-12-12] MEDS: Furosemide 20 MG Tablet PO (09:13)
[2018-12-12 10:12] LABS: Vitamin D,25 Hydroxy 42.9 ng/mL (29.95-100.01)
[2018-12-12 11:26] LABS: Bedside Glucose 278 mg/dL (70-110)
--- NOTE | 2018-12-12 12:21 | PCM.PN.HOSP ---
Patient Problems: Active and Suspected Problems (Last Reviewed 10/25/18 @ 15:56 by Alex Lama MD) Fall (Acute) Cellulitis of right elbow (Acute) Debility (Acute) Subjective: Still with back pain. Painful moving. Vitals/I&O's: Vital Signs Temp Pulse Resp BP Pulse Ox 37.1 C 79 17 137/89 H 96 12/12/18 07:31 12/12/18 07:31 12/12/18 07:31 12/12/18 07:31 12/12/18 09:30 Oxygen Flow Rate (L/min) 2 Oxygen Delivery Method Room Air Weight: 122.1 kg Body Mass Index (BMI) 44.8 Finger Stick Blood Glucose 139 Intake and Output for Last 24 Hours 12/10/18 12/11/18 12/12/18 23:59 23:59 23:59 Intake Total 1830 / 1830 1450 / 1450 240 / 240 Output Total 250 / 250 Balance 1580 / 1580 1450 / 1450 240 / 240 General: Alert, No apparent distress HEENT: Atraumatic, Normocephalic Oral: Moist Mucosa, No Gingival or Mucosal Lesions/ Ulcerations Neck: No Nodes, Thyroid Normal Size and Texture Lungs: Clear to auscultation, Normal air movement, No rhonchi, No wheeze, No rales Cardiovascular: Regular rate, Regular Rhythm, Normal S1, Normal S2 Abdomen: Bowel Sounds Present, Soft, Non Tender, Non-Distended, No Hepato-splenomegaly Extremities: No Calf Tenderness, Edema Skin: - - resolved erythema of right elbow. Psych/Mental Status: Normal Affect, Appropriate Microbiology Past 72 Hours 12/10/18 05:05 Urine, Catheterized Urine Culture - Final Presumptive E. coli Laboratory Results 12/11/18 17:15: POC Glucose 157 H 12/11/18 21:01: POC Glucose 185 H 12/12/18 06:35: PT 32.2 H, INR 3.1 12/12/18 06:35: Vitamin D 25-Hydroxy 42.9 12/12/18 06:37: POC Glucose 163 H 12/12/18 11:03: POC Glucose 278 H Current Medications Acetaminophen (Tylenol) 650 mg PO Q6H PRN PRN PRN Reason: Non-cardiac pain (mod-severe) Last Admin: 12/12/18 07:34 Dose: 650 mg Documented by: Albuterol Sulfate (Ventolin Aerosols) 2.5 mg INHALATION Q2H PRN PRN PRN Reason: dyspnea, wheezing Albuterol/Ipratropium (Duoneb) 3 ml INHALATION Q6HWA.RT [facility] Last Admin: 12/11/18 18:44 Dose: Not Given Documented by: Anastrozole (Arimidex) 1 mg PO DAILY [facility] Last Admin: 12/12/18 09:13 Dose: 1 mg Documented by: Atorvastatin Calcium (Lipitor) 20 mg PO QHS [facility] Last Admin: 12/11/18 21:06 Dose: 20 mg Documented by: Bupropion HCl (Wellbutrin Xl) 150 mg PO DAILY [facility] Last Admin: 12/12/18 09:13 Dose: 150 mg Documented by: Cephalexin (Keflex) 500 mg PO Q8 [facility] Last Admin: 12/12/18 05:14 Dose: 500 mg Documented by: Clonazepam (Klonopin) 1 mg PO DAILY PRN PRN PRN Reason: restless leg syndrome Cyclobenzaprine HCl (Cyclobenzaprine Hcl) 5 mg PO TID PRN PRN Reason: MUSCLE SPASM Last Admin: 12/12/18 11:11 Dose: 5 mg Documented by: Dextrose (D50w Syringe) 0 gm IV X1 PRN; Protocol PRN Reason: Hypoglycemia Emollient Ointment (Eucerin Intensive Repair) 1 applic TOPICAL 4X/DAY PRN PRN; Protocol PRN Reason: intertrigo Furosemide (Lasix) 20 mg PO DAILY [facility] Last Admin: 12/12/18 09:13 Dose: 20 mg Documented by: Glucagon () 1 mg IM .X1 PRN PRN Reason: Hypoglycemia Hydralazine HCl (Apresoline Iv) 10 mg IV Q4H PRN PRN PRN Reason: SBP > 160 Insulin Human Lispro (Humalog Kwikpen (Bkc)) 0 unit SC ACHS [facility]; Protocol Last Admin: 12/12/18 11:10 Dose: 4 u Documented by: Levothyroxine Sodium (Synthroid) 112 mcg PO DAILY@0600 [facility] Last Admin: 12/12/18 05:14 Dose: 112 mcg Documented by: Nystatin (Mycostatin Powder) 1 applic TOPICAL TID [facility]; Protocol Last Admin: 12/12/18 05:15 Dose: 1 applicatio Documented by: Ondansetron HCl (Zofran) 4 mg IV Q8H PRN PRN PRN Reason: NAUSEA/VOMITING Oxycodone HCl (Oxyir) 5 mg PO Q4H PRN PRN PRN Reason: SEVERE PAIN (6-10/10) Prednisone () 5 mg PO QODAY@0800 [facility] Last Admin: 12/12/18 07:34 Dose: 5 mg Documented by: Prednisone () 10 mg PO QODAY@0800 [facility] Last Admin: 12/12/18 07:34 Dose: 10 mg Documented by: Senna/Docusate Sodium (Senokot-S, Yola-Colace) 1 tablet PO DAILY PRN PRN PRN Reason: CONSTIPATION Last Admin: 12/11/18 09:17 Dose: 1 tablet Documented by: Sodium Chloride () 10 - 40 ml IV UD PRN PRN Reason: SALINE FLUSH Last Admin: 12/12/18 09:13 Dose: 10 ml Documented by: Spironolactone (Aldactone) 25 mg PO DAILY [facility] Last Admin: 12/12/18 09:13 Dose: 25 mg Documented by: Trazodone HCl (Desyrel) 150 mg PO QHS [facility] Last Admin: 12/11/18 21:06 Dose: 150 mg Documented by: Warfarin Sodium (Coumadin (Pbkc)) 3 mg PO SuTuThSa@1700 [facility] Last Admin: 12/10/18 17:17 Dose: 3 mg Documented by: Warfarin Sodium (Coumadin (Pbkc)) 1.5 mg PO MoWeFr@1700 [facility] Medical Necessity - Tobacco Use Smoking Status: Never smoker Tobacco Use: Secondhand Assessment/Plan All Active Problems (Last Reviewed 10/25/18 @ 15:56 by Alex Lama MD) Fall (Acute) Cellulitis of right elbow (Acute) Debility (Acute) 1. Possible right elbow cellulitis I'm not sure patient has actual cellulitis of her elbow, versus bursitis change cefazolin to cephalexin PO for 5 more days, to complete 7 days of abx improving. 2. Back pain xrays showed no obvious fracture may be muscle strain cyclobenzaprine reassurance provided. increase pain medications to oxycodone. 3. Debility awaiting on insurance authorization. 4. COPD stable continue BDs and chronic prednisone follow up with pulm as outpt 5. Lupus anticoagulant anticoagulated hold coumadin until INR less than or equal to 3. 6. VTE prophylaxis: low-risk as patient is anticoagulated. Code Visit Inpatient E&M: 74776 Subs Hosp L2
[2018-12-12] MEDS: oxyCODONE 5 MG Tablet PO ×2 (13:31→18:43)
[2018-12-12] MEDS: Senna/Docusate Sodium 1 Tablet PO (13:31)
--- NOTE | 2018-12-12 14:05 | CASEMGMT ---
BYRON spoke with patient per her request. She asked if SW could speed up the process for her insurance to approve her to go to TCU. BYRON explained SW does not have the capability to make insurance give us an answer faster. BYRON told her it usually takes a day or 2. Plan: [facility] TCU pending insurance approval. Chelly LATHAM
--- NOTE | 2018-12-12 15:19 | PCM.TXEXTCAR ---
- Diet 12/10/18 02:17 Diet: Calorie Controlled Food consistency:: Regular Liquid Consistency:: Regular/Thin How many daily calories?: 1800 calorie - Routine Orders/Code Status O2 Frequency: PRN Keep PO Greater than or Equal to (%): 92 - Wound(s) Right elbow Wound Type: Abrasion Abd Folds Wound Type: Skin Tear - Therapies Weight Bearing: Full weight bearing Physical Therapy: Eval and Treat Occupational Therapy: Eval and Treat - Allergies/Procedures Done in Hospital Allergies/Adverse Reactions: Allergies acetaminophen [From Vicodin] Adverse Reaction (Verified 12/10/18 17:06) Unknown hydrocodone bitartrate [From Vicodin] Adverse Reaction (Verified 12/10/18 17:06) Upset Stomach Procedures: None - Type of Care/Length of Stay Estimated LOS: Convalescent Care Less Than 30 days Type of Care Needed: Skilled Rehab Potential: Fair Prognosis: Fair - Additional Orders/Day of Discharge Day of Discharge: 12/12/18 - Dietary and Speech Recommendations Dietitian Recommendations/Changes: Continue 1800 calorie; cardiac diet. Will d/c [facility]rowju[facility] on [facility] for now. - Follow Up Care Primary Care Physician: Ai Anguiano MD [Primary Care Provider] - Within 2 Weeks Please Follow Up With: Robert Estes MD When: 12/21/18 Please Follow Up With: Alex Lama MD When: 10/25/2019 Please Follow Up With: Benjie Tripp MD When: at next scheduled appointment
[2018-12-12 17:10] LABS: Bedside Glucose 224 mg/dL (70-110)
[2018-12-12] MEDS: traZODone 50 MG Tablet 150 MG PO (21:55)
[2018-12-12] MEDS: Atorvastatin Calcium 20 MG Tablet PO (21:58)
[2018-12-13] VITALS (7 sets, daily range): BP systolic 137–150; BP diastolic 82–91; PULSE 70–94; RESP 12–19; TEMP 36.5–36.7; O2SAT 93–98
[2018-12-13 00:11] LABS: Bedside Glucose 176 mg/dL (70-110)
[2018-12-13] MEDS: Levothyroxine 112 MCG Tablet PO (06:08)
[2018-12-13] MEDS: Cephalexin 500 MG Capsule PO (06:08)
[2018-12-13] MEDS: Nystatin Powder 15gm Bottle 1 APPLIC TOPICAL (06:08)
[2018-12-13] MEDS: Insulin Lispro 100 UNIT/ML INSULN.PEN SC ×2 (06:46→11:45)
[2018-12-13 07:00] LABS: Bedside Glucose 154 mg/dL (70-110)
[2018-12-13 09:26] LABS: Prothrombin Time (Protime)PT. 31.3 SECONDS (11.7-14.9)
[2018-12-13] MEDS: buPROPion (XL) 150 MG TABLET.XL PO (09:51)
[2018-12-13] MEDS: Furosemide 20 MG Tablet PO (09:51)
[2018-12-13] MEDS: Anastrozole 1 MG Tablet PO (09:51)
[2018-12-13] MEDS: Spironolactone 25 MG Tablet PO (09:52)
--- NOTE | 2018-12-13 10:03 | CASEMGMT ---
LW/POA form(the document includes both) in the summary tab of the e-chart. Efra De La Rosa is listed as POA. STEPHEN Ervin
--- NOTE | 2018-12-13 11:09 | CASEMGMT ---
Received call from Telma and she received insurance approval for patient. BYRON notified physician, RN, and patient. Orders copied. Plan: d/c to [facility] TCU under skilled level of care. Chelly LATHAM
--- NOTE | 2018-12-13 11:39 | DS.PCM_ITS ---
Discharge Date and Diagnosis - Problem List Patient Problems: Active and Suspected Problems (Last Reviewed 10/25/18 @ 15:56 by Alex Lama MD) Fall (Acute) Cellulitis of right elbow (Acute) Debility (Acute) Date of Admission: 12/10/18 Date of Discharge: 12/13/18 - Primary Discharge Diagnosis Active and Suspected Problems (Last Reviewed 10/25/18 @ 15:56 by Alex Lama MD) Fall (Acute) Cellulitis of right elbow (Acute) Debility (Acute) - Secondary Discharge Diagnosis Chronic Problems (Last Reviewed 10/25/18 @ 15:56 by Alex Lama MD) YOLY (obstructive sleep apnea) (Chronic) Hypertension (Chronic) Diabetes mellitus, type II (Chronic) Morbid obesity (Chronic) Lupus anticoagulant disorder (Chronic) Thoracic aortic aneurysm (Chronic) Essential (primary) hypertension (Chronic) Hyperlipidemia (Chronic) History of pulmonary embolism (Chronic) Hospital Course and Treatment Imaging Results: Clinical Impression(s) from Imaging Studies Brain CT 12/09/18 23:42 IMPRESSION: Stable central and cortical involutional changes Stable small vessel old deep white matter ischemic changes Electronically Signed: Benjie Hylton at 1:22 EDT Tel , Service support , Elbow X-Ray 12/09/18 23:42 IMPRESSION: Osteoarthrosis no fractures Soft tissue edema Electronically Signed: Benjie Hylton at 0:43 EDT Tel , Service support , Thoracic Spine X-Ray 12/10/18 16:52 IMPRESSION: Generalized osteopenia. Diffuse endplate spondylosis. There is no evidence of fracture or subluxation. Electronically Signed: Chester Killian MD at 20:06 EDT , Service support , Lumbar Spine X-Ray 12/10/18 18:00 IMPRESSION: Degenerative changes of the spine, as detailed above. Electronically Signed: Chester Killian MD at 20:05 EDT , Service support , Operations: None, total hip replacement, - Procedures: None Summary of Care Provided: The patient is a 78 year old F presents with fall. Concern was for cellulitis involving the right elbow. Patient was started on ceftezole and IV. Patient had redness is really not clear if this is some bursitis the patient was changed to cephalexin orally and has essentially unchanged but is not warm nor overtly concerning for cellulitis but we will treat her for the duration. Patient also complained of back pain did undergo x-rays that showed no acute process. Exam is more consistent with musculoskeletal. Patient is reluctant to mood because of aggravation of her back pain. I had very lengthy conversation regards to pain control and function and given patient's respiratory issues, I stated that would be very wary of increasing her narcotics for potential respiratory distress. Patient will be going to transitional care unit where her , who is at a different facility will be going as well for further rehab. 1. Possible right elbow cellulitis * I'm not sure patient has actual cellulitis of her elbow, versus bursitis * change cefazolin to cephalexin PO for 5 more days, to complete 7 days of abx * improving. 2. Back pain * xrays showed no obvious fracture * may be muscle strain * cyclobenzaprine * reassurance provided. * increase pain medications to oxycodone. 3. Debility * awaiting on insurance authorization. 4. COPD * stable * continue BDs and chronic prednisone * follow up with pulm as outpt 5. Lupus anticoagulant * anticoagulated * hold coumadin until INR less than or equal to 3. [] Patient Problems: Active and Suspected Problems (Last Reviewed 10/25/18 @ 15:56 by Alex Lama MD) Fall (Acute) Cellulitis of right elbow (Acute) Debility (Acute) - Physical Exam General: Alert, No apparent distress HEENT: Atraumatic, Normocephalic Oral: Moist Mucosa, No Gingival or Mucosal Lesions/ Ulcerations Neck: No Nodes, Thyroid Normal Size and Texture Lungs: Clear to auscultation, Normal air movement, No rhonchi, No wheeze Cardiovascular: Regular rate, Regular Rhythm, Normal S1, Normal S2, No murmurs Abdomen: Bowel Sounds Present, Soft, Non Tender, Non-Distended, Obese Extremities: No Calf Tenderness, Edema Skin: - - erythema right elow w/o fluctuance/induration. Vital Signs Temp Pulse Resp BP Pulse Ox 36.5 C L 71 14 137/82 H 97 12/13/18 07:44 12/13/18 07:44 12/13/18 07:44 12/13/18 07:44 12/13/18 07:44 Oxygen Flow Rate (L/min) 2 Oxygen Delivery Method Room Air Weight: 122.1 kg Body Mass Index (BMI) 44.8 Finger Stick Blood Glucose 139 Intake and Output for Last 24 Hours 12/11/18 12/12/18 12/13/18 23:59 23:59 23:59 Intake Total 1450 / 1450 1090 / 1090 120 / 120 Output Total 1200 / 1200 Balance 1450 / 1450 -110 / -110 120 / 120 Microbiology Past 72 Hours 12/10/18 05:05 Urine Culture - Final Urine, Catheterized Presumptive E. coli Laboratory Tests Past 24 Hrs 12/13/18 09:00 PT 31.3 H INR 3.0 POC Glucose 12/13/18 12/12/18 12/12/18 06:36 21:57 16:27 POC Glucose 154 H 176 H 224 H Discharge Diet: 1800 Calorie Control Diet Discharge Activity: Return to Normal Activity Call your doctor if you observe: Fever of 101 or Higher Home Medications: Medications to take at Discharge Levothyroxine [Synthroid] 112 mcg PO DAILY 01/24/14 Simvastatin [Zocor] 40 mg PO QHS 01/24/14 Anastrozole [Arimidex] 1 mg PO DAILY 03/17/15 traZODone [Desyrel] 150 mg PO QHS 05/07/16 Bupropion HCl [Bupropion Xl] 150 mg PO DAILY 04/22/18 Fluticasone Furoate [Arnuity Ellipta] 1 puff INHALATION QHS 05/04/18 Furosemide [Lasix] 20 mg PO DAILY 05/04/18 Warfarin Sodium 1.5 mg PO MOWEFR 05/04/18 Warfarin Sodium 3 mg PO SUTUTHSA 05/04/18 Spironolactone [Aldactone] 25 mg PO DAILY 05/10/18 Albuterol Inhaler [Ventolin Hfa] 2 puff INHALATION Q6HWA.RT PRN 08/01/18 Acetaminophen [Tylenol Tablet] 650 mg PO Q6H PRN PRN tab 12/12/18 Albuterol Aerosols [Ventolin Aerosols] 2.5 mg INHALATION Q2H PRN PRN vial.neb. 12/12/18 Cephalexin [Keflex] 500 mg PO Q8 cap 12/12/18 Clonazepam [Klonopin] 1 mg PO DAILY PRN PRN #3 tab 12/12/18 Insulin Lispro [Humalog KwikPen] See Protocol SUBCUT ACHS insuln.pen 12/12/18 Nystatin Powder [Mycostatin Powder] 1 applic TOPICAL TID bottle 12/12/18 Oxycodone [Oxyir] 5 mg PO Q6H PRN 3 Days #12 tab 12/12/18 Prednisone 5 mg PO QODAY #0 12/12/18 Prednisone 10 mg PO QODAY #0 12/12/18 cycloBENZAPRine HCl [Cyclobenzaprine HCl] 5 mg PO TID PRN tab 12/12/18 Following Prescrptions Were Given to Patient: Clonazepam [Klonopin] 1 mg PO DAILY PRN PRN #3 tab PRN Reason: restless leg syndrome Prescription Printed Oxycodone [Oxyir] 5 mg PO Q6H PRN 3 Days #12 tab PRN Reason: Severe Pain (6-10/10) Prescription Printed Primary Care Physician: Ai Anguiano MD [Primary Care Provider] - Within 2 Weeks Please Follow Up With: Robert Estes MD When: 12/21/18 Please Follow Up With: Alex Lama MD When: 10/25/2019 Please Follow Up With: Benjie Tripp MD When: at next scheduled appointment [facility]position[facility] facility Minutes spent on discharge:: 32 Patient Condition:: Fair Medical Necessity - Tobacco Use Smoking Status: Never smoker Tobacco Use: Secondhand Meaningful Use Info Meaningful Use Diagnoses (Choose all that apply): None applicable Code Visit Inpatient E&M: 08603 Disch Hosp
[2018-12-13 12:05] LABS: Bedside Glucose 173 mg/dL (70-110)
--- NOTE | 2018-12-13 13:33 | NURSING ---
report called to TCU RN
[2018-12-13] MEDS: Ondansetron 4 MG/2 ML Vial IV (14:36)
[2018-12-13] MEDS: 0.9% NaCl Peripheral Flush Adult/Peds IV (14:37)
--- NOTE | 2018-12-13 19:04 | NURSING ---
read and reviewed SN charting
== END 2018-12-13 15:37 | disposition skilled nursing facility (03) | DRG 603 ==
LOC: ED 12-10 01:43 → PCU 12-10 01:52
PROVIDERS: Internal Medicine; Admitting Provider Family Medicine; Emergency Provider Emergency Medicine; Family Provider Internal Medicine; PCP Internal Medicine
DX: L03.113 Cellulitis of right upper limb (principal); D68.62 Lupus anticoagulant syndrome; Z68.42 Body mass index [BMI] 45.0-49.9, adult; R29.6 Repeated falls; J44.9 Chronic obstructive pulmonary disease, unspecified; I12.9 Hypertensive chronic kidney disease with stage 1 through stage 4 chronic kidney disease, or unspecified chronic kidney disease; N18.3 Chronic kidney disease, stage 3 (moderate); E11.22 Type 2 diabetes mellitus with diabetic chronic kidney disease; E78.5 Hyperlipidemia, unspecified; Z91.81 History of falling; Z85.3 Personal history of malignant neoplasm of breast; F32.9 Major depressive disorder, single episode, unspecified; F41.9 Anxiety disorder, unspecified; E66.01 Morbid (severe) obesity due to excess calories; E03.9 Hypothyroidism, unspecified; G47.33 Obstructive sleep apnea (adult) (pediatric); M54.9 Dorsalgia, unspecified; E11.42 Type 2 diabetes mellitus with diabetic polyneuropathy; Z86.711 Personal history of pulmonary embolism; I71.2 Thoracic aortic aneurysm, without rupture; Z79.52 Long term (current) use of systemic steroids; Z66 Do not resuscitate
CPT/HCPCS: 36415; 70450; 72072; 72100; 73080; 80048; 81001; 82306; 82962; 83036; 85025; 85610; 87086; 87088; 87186; 93005; 94002; 94003; 97110; 97116; 97162; 97166; 97530; 97535; 97802; 99285; J7030; J7040; A4216; J2405

== ENCOUNTER 2018-12-13 15:56 | Inpatient (IN) | payer MEDICARE, SELFPAY ==
[2018-12-10 02:47] VITALS: BMI 44.8
[2018-12-13 16:09] VITALS: BP 108/42; PULSE 85; RESP 20; TEMP 36.6; O2SAT 94; BMI 46.0
--- NOTE | 2018-12-13 16:35 | NURSING ---
PT ARRIVED ON FLOOR BY BED FROM [facility] AT 1545.
[2018-12-13 17:10] LABS: Bedside Glucose 190 mg/dL (70-110)
[2018-12-13 18:04] VITALS: BP 137/91; PULSE 85
--- NOTE | 2018-12-13 20:25 | HP.PCM_ITS ---
Problem List (1) Closed head injury Status: Acute (2) Diabetes mellitus Status: Chronic (3) Pulmonary embolism Status: Chronic (4) Sleep apnea Status: Chronic (5) Insomnia Status: Chronic (6) COPD (chronic obstructive pulmonary disease) Status: Chronic (7) Breast cancer Status: Chronic (8) Gait difficulty Status: Acute (9) Fall Status: Acute (10) Cellulitis of right elbow Status: Acute (11) Debility Status: Acute (12) Hypertension Status: Chronic Qualifiers: (13) Morbid obesity Status: Chronic (14) Lupus anticoagulant disorder Status: Chronic (15) Thoracic aortic aneurysm Status: Chronic Qualifiers: (16) Hyperlipidemia Status: Chronic Qualifiers: History of Present Illness Date of Admission: 12/13/18 Chief Complaint: Here for rehabilitation, strengthening, prior to discharge home with spouse. The patient is a 78 year old Female with below past medical history presented to [facility] Emergency Department 12/09/2018 with fall. 12/09/2018 CT brain showed stable involutional changes, stable small vessel ischemic disease. 12/09/2018 X-ray right elbow showed arthritis, swelling. Fell, hit head, baseline walks with walker, on coumadin. Unable to care for self, her caregiver admitted to [facility]. Unable to walk with 2 nurses, and walker. Keflex given for right elbow cellulitis. EKG showed sinus tachycardia, left anterior fascicular block. 12/10/2018 Admit to Hospital. IV Ancef for right elbow cellulitis. [facility] 12/10/2018 X-ray lumbar spine showed degenerative changes. Discharge on Keflex to finish course for right elbow cellulitis. Back pain thought musculoskeletal. 12/13/2018 Admit to TCU with debility, here for rehabilitation, strengthening, prior to discharge home. Her will join her on TCU as a resident. If conjugal room available, will move and into same room. Past Medical History Past Medical History (Chronic Problems): Chronic Problems (Last Reviewed 10/25/18 @ 15:56 by Alex Lama MD) YOLY (obstructive sleep apnea) (Chronic) Hypertension (Chronic) Diabetes mellitus, type II (Chronic) Morbid obesity (Chronic) Diabetes mellitus (Chronic) Pulmonary embolism (Chronic) Sleep apnea (Chronic) Insomnia (Chronic) COPD (chronic obstructive pulmonary disease) (Chronic) Breast cancer (Chronic) Lupus anticoagulant disorder (Chronic) Thoracic aortic aneurysm (Chronic) Essential (primary) hypertension (Chronic) Hyperlipidemia (Chronic) History of pulmonary embolism (Chronic) Medical History: Medical History (Last Reviewed 10/25/18 @ 15:56 by Alex Lama MD) Lupus anticoagulant disorder (Chronic) D68.62 Thoracic aortic aneurysm (Chronic) I71.2 Essential (primary) hypertension (Chronic) I10 Hyperlipidemia (Chronic) E78.5 History of pulmonary embolism (Chronic) Z86.711 Anxiety F41.9 Cellulitis of right lower extremity L03.115 Chronic obstructive pulmonary disease J44.9 Depression F32.9 Diabetes mellitus E11.9 Diabetes mellitus type 2 in obese E11.9, E66.9 Hypothyroidism E03.9 Insomnia G47.00 Left ureteral stone N20.1 Obesity E66.9 Obstructive sleep apnea G47.33 Osteoarthritis M19.90 Restless leg syndrome Traumatic hematoma of right foot S90.31XA Type 2 diabetes mellitus with diabetic polyneuropathy E11.42 Wound of right foot S91.301A Breast cancer, left breast C50.912 Hypercoagulable state (Inactive) D68.59 Allergies acetaminophen [From Vicodin] Adverse Reaction (Verified 12/10/18 17:06) Unknown hydrocodone bitartrate [From Vicodin] Adverse Reaction (Verified 12/10/18 17:06) Upset Stomach Home Medications: Ambulatory Orders Medication Instructions Recorded Levothyroxine [Synthroid] 112 mcg PO DAILY 01/24/14 Simvastatin [Zocor] 40 mg PO QHS 01/24/14 Anastrozole [Arimidex] 1 mg PO DAILY 03/17/15 traZODone [Desyrel] 150 mg PO QHS 05/07/16 Bupropion HCl [Bupropion Xl] 150 mg PO DAILY 04/22/18 Fluticasone Furoate [Arnuity 1 puff INHALATION QHS 05/04/18 Ellipta] Furosemide [Lasix] 20 mg PO DAILY 05/04/18 Warfarin Sodium 1.5 mg PO MOWEFR 05/04/18 Warfarin Sodium 3 mg PO SUTUTHSA 05/04/18 Spironolactone [Aldactone] 25 mg PO DAILY 05/10/18 Albuterol Inhaler [Ventolin Hfa] 2 puff INHALATION Q6HWA.RT PRN 08/01/18 Acetaminophen [Tylenol Tablet] 650 mg PO Q6H PRN PRN tab 12/12/18 Albuterol Aerosols [Ventolin 2.5 mg INHALATION Q2H PRN PRN 12/12/18 Aerosols] vial.neb. Clonazepam [Klonopin] 1 mg PO DAILY PRN PRN #3 tab 12/12/18 Oxycodone [Oxyir] 5 mg PO Q6H PRN 3 Days #12 tab 12/12/18 Prednisone 5 mg PO QODAY #0 12/12/18 Prednisone 10 mg PO QODAY #0 12/12/18 cycloBENZAPRine HCl 5 mg PO TID PRN tab 12/12/18 [Cyclobenzaprine HCl] Cephalexin [Keflex] 500 mg PO Q8 12/13/18 Insulin Lispro [Humalog KwikPen] See Protocol SUBCUT ACHS 12/13/18 Nystatin Powder [Mycostatin Powder] 1 applic TOPICAL TID 12/13/18 Surgical History: Surgical History (Last Reviewed 10/25/18 @ 15:56 by Alex Lama MD) History of open reduction and internal fixation (ORIF) procedure Z98.890 LLE History of left hip replacement Z96.642 History of lumpectomy Z98.890 History of right hip replacement Z96.641 History of total left knee replacement Z96.652 Surgical History: cholecystectomy, total hip arthroplasty - Bilateral., total knee arthroplasty - Bilateral., tonsillectomy, - - ORIF right ankle fracture, Tubal ligation, breast lumpectomy, left lower extremity ORIF. Psychiatric History: Anxiety, Depression FLOWER MAKER History: No pertinent FLOWER MAKER history Lives: Spouse/ Significant Other - Lives with , but admitted to hospital. Smoking Status: Never smoker Tobacco Use: Non-smoker Alcohol: None Drugs: None - *Family History Maternal History Items: Heart Disease Paternal History Items: Heart Disease Review of Systems Constitutional: Denies: Chills, Fever, Weight Change HEENT: Denies: Head Aches, Sinus Congestion, Sinus Drainage Cardiovascular: Denies: Chest Pain, Palpitations Respiratory: Denies: Cough, Shortness of breath at rest, Sputum production Gastrointestinal: Denies: Abdominal Pain, Nausea, Vomiting Genitourinary: Denies: Dysuria Musculoskeletal: Denies: Joint Pain, Joint Tenderness Skin: Denies: Rash, Wounds Neurological: Denies: Numbness, Tingling, Focal weakness Psychiatric: Denies: Anxiety, Depression, Homicidal Ideations, Suicidal Ideations Hematologic/ Lymphatic: Denies: Easy Bruising, Easy Bleeding VTE Information - Inpt Only VTE Present on Admission: No VTE Mechan Device Prophylaxis: Knee High JOANNA Hose VTE Pharm Prophylaxis ordered?: No Reason prophylaxis not ordered:: Treatment Not Indicated Patient Problems: Active and Suspected Problems (Last Reviewed 10/25/18 @ 15:56 by Alex Lama MD) Closed head injury (Acute) Gait difficulty (Acute) - Physical Exam General: Alert, Oriented x3, Cooperative HEENT: Atraumatic, PERRLA, EOMI, Normocephalic Neck: Supple, No JVD, Negative Carotid Bruits Lungs: Clear to auscultation, Normal air movement Cardiovascular: Regular rate, No murmurs Abdomen: Bowel Sounds Present, Soft, Non Tender Extremities: No edema, Capillary Refill Less than 3 Seconds Skin: No rashes, No breakdown Musculoskeletal: No Tenderness to Palpation of Joints or Extremities Neurological: Cranial nerves II-XII grossly intact Psych/Mental Status: Normal Affect, Appropriate Vital Signs Temp Pulse Resp BP Pulse Ox 97.8 F 85 20 H 137/91 H 94 12/13/18 16:09 12/13/18 18:04 12/13/18 16:09 12/13/18 18:04 12/13/18 16:09 Oxygen Delivery Method Room Air Weight: 125.7 kg Body Mass Index (BMI) 46.0 Finger Stick Blood Glucose 139 Intake and Output for Last 24 Hours 12/11/18 12/12/18 12/13/18 23:59 23:59 23:59 Intake Total 120 / 120 Balance 120 / 120 POC Glucose 12/13/18 16:47 POC Glucose 190 H Assessment/Plan All Active Problems (Last Reviewed 10/25/18 @ 15:56 by Alex Lama MD) Fall (Acute) Cellulitis of right elbow (Acute) Debility (Acute) Closed head injury (Acute) Gait difficulty (Acute) 78 year old female with below past medical history hospitalized for fall, closed head injury, inability to care for self, complicated by back pain, admitted to TCU with debility, here for rehabilitation, strengthening, prior to discharge home with spouse. * Debility - PT/OT. * Pain - Tylenol 1000MG Q6H PRN mild pain, Oxycodone 5MG Q6H PRN moderate pain. * Bowel - Miralax 17GM daily, Senna/colace 2 tablets BID, Dulcolax 10MG daily PRN, Magnesium citrate 300ML PO x 1 dose. * Pneumonia vaccination - Administer Prevnar 13 and/or Pneumovax 23 as necessary. * DVT prophylaxis - Not necessary, already on warfarin. * Asthma - Flovent 250MCG 1 puff BID, Albuterol 2.5MG Nebulized Q2H PRN, Prednisone 5/10MG alternating every other day. * Breast cancer - Anastrozole 1MG daily. * Hyperlipidemia - Atorvastatin 20MG QHS. * Anxiety - Bupropion XL 150MG daily, Clonazepam 1MG daliy PRN. * Right elbow cellulitis - Keflex 500MG Q8H thru 12/17/2018. * Muscle spasm - Flexeril 5MG TID PRN. * Edema - Lasix 20MG daily, Aldactone 25MG daily. * Nutrition - Glucerna 120ML TID. * Hypothyroidism - Levothyroxine 112MCG daily. * Tinea Corporis - Nystatin powder TID. * Insomnia - Trazodone 150MG QHS. * Lupus anticoagulant disorder - Warfarin 1.5/3MG alternating, follow INR.
[2018-12-13] MEDS: Magnesium Citrate 300 ML PO (21:23)
[2018-12-13] MEDS: traZODone 100 MG Tablet 150 MG PO (21:25)
[2018-12-13] MEDS: Atorvastatin Calcium 20 MG Tablet PO (21:25)
[2018-12-13] MEDS: Cephalexin 500 MG Capsule PO (21:25)
[2018-12-13 21:26] LABS: Bedside Glucose 145 mg/dL (70-110)
[2018-12-13] MEDS: Nystatin Powder 15gm Bottle 1 APPLIC TOPICAL (21:29)
[2018-12-13] MEDS: oxyCODONE 5 MG Tablet PO (21:53)
[2018-12-13] MEDS: Ondansetron ODT 4 MG Tablet PO (21:54)
[2018-12-14 03:45] VITALS: PULSE 86; RESP 12; RESP 14; O2SAT 99
[2018-12-14 05:39] LABS: Hematocrit 38.6 % (37-47); Hemoglobin 11.8 g/dL (12.0-15.0); Mean Corp Hgb Conc 30.6 g/dL (32-36); Mean Corpuscular Hgb 28.4 pg (27.0-32.0); Mean Corpuscular Volume 92.8 fL (81-99); Mean Platelet Vol. 8.9 fl (6.2-12.0); POSITIVE COUNT YES; POSITIVE MORPHOLOGY YES; Platelet Count 139 K/mm3 (150-450); RBC Distribution Width CV 15.3 % (11.6-14.6); RBC Distribution Width SD 51.7 fl (35.1-43.9); Red Blood Count 4.16 M/mm3 (4.2-5.4); White Blood Count 6.9 K/mm3 (4.4-11.0)
[2018-12-14 06:03] LABS: Anion Gap 7 (5-15); BUN 19 mg/dL (7-18); BUN/Creat Ratio 17.1 RATIO (10-20); Calcium,Total 8.7 mg/dL (8.5-10.1); Chloride 100 mmol/L (98-107); Creatinine, Serum 1.11 mg/dL (0.55-1.02); Differential Indicated MANUAL DIFF; EST Glomerular Filtration Rate 51 mL/min (>60); Est Glom Filt Rate - Afr Amer 61 mL/min (>60); Glucose 138 mg/dL (74-106); Potassium 4.1 mmol/L (3.5-5.1); Sodium Level 137 mmol/L (136-145)
[2018-12-14 06:17] VITALS: BP 144/87; PULSE 75
[2018-12-14] MEDS: Senna/Docusate Sodium 1 Tablet 2 TABLET PO ×2 (06:18→17:43)
[2018-12-14] MEDS: Polyethylene Glycol 3350 17 GM PACKET PO (06:18)
[2018-12-14] MEDS: oxyCODONE 5 MG Tablet PO ×2 (06:18→20:43)
[2018-12-14] MEDS: Cephalexin 500 MG Capsule PO ×3 (06:19→20:43)
[2018-12-14] MEDS: Spironolactone 25 MG Tablet PO (06:19)
[2018-12-14] MEDS: buPROPion (XL) 150 MG TABLET.XL PO (06:19)
[2018-12-14] MEDS: Levothyroxine 112 MCG Tablet PO (06:19)
[2018-12-14] MEDS: Anastrozole 1 MG Tablet PO (06:20)
[2018-12-14] MEDS: Furosemide 20 MG Tablet PO (06:20)
[2018-12-14] MEDS: Nystatin Powder 15gm Bottle 1 APPLIC TOPICAL ×3 (06:24→20:43)
[2018-12-14 06:31] LABS: Bedside Glucose 144 mg/dL (70-110)
[2018-12-14 06:58] LABS: Eosinophil 1 % (0-5); Lymphocyte 17 % (19-41); Metamyelocyte 4 % (0-1); Monocyte 5 % (0-10); Myelocyte 1 (0-0); Neutrophil-Band 4 % (0-5); Neutrophil-Segmented 68 % (47-70); Total Cells Counted 100 (MANUAL DIFF)
[2018-12-14 06:59] LABS: Platelet Estimate ADEQUATE (ADEQ); Red Cell Morphology NORM C+C NORMAL (NORM C&C); Toxic Granulation 2+
[2018-12-14 07:00] LABS: Absolute Lymphocyte Count 1.18 X10^3/uL (0.83-4.51); Lymphocyte # 1.18 X10^3/ul (4.0)
[2018-12-14 07:01] LABS: Neutrophil # 4.99 X10^3/uL (2.7-7.7)
--- NOTE | 2018-12-14 07:53 | PCM.PN.RX ---
<Pia Mckeon M - Last Filed: 12/14/18 11:06> Progress Note - Pharmacy Subjective: TCU Admission Objective: Allergies acetaminophen [From Vicodin] Adverse Reaction (Verified 12/10/18 17:06) Unknown hydrocodone bitartrate [From Vicodin] Adverse Reaction (Verified 12/10/18 17:06) Upset Stomach Current Medications Generic Name Dose Route Start Last Admin Trade Name Freq PRN Reason Stop Dose Admin Acetaminophen 1,000 mg 12/13/18 21:36 Tylenol PO Q6H PRN PRN PAIN Albuterol Sulfate 2.5 mg 12/13/18 16:20 Ventolin Aerosols INHALATION Q2H PRN PRN dyspnea, wheezing Anastrozole 1 mg 12/14/18 06:00 12/14/18 06:20 Arimidex PO 1 mg DAILY PASCUAL Administration Atorvastatin Calcium 20 mg 12/13/18 22:00 12/13/18 21:25 Lipitor PO 20 mg QHS PASCUAL Administration Bisacodyl 10 mg 12/13/18 20:46 Dulcolax PO DAILY PRN Constipation Bupropion HCl 150 mg 12/14/18 06:00 12/14/18 06:19 Wellbutrin Xl PO 150 mg DAILY PASCUAL Administration Cephalexin 500 mg 12/13/18 22:00 12/14/18 06:19 Keflex PO 12/17/18 22:01 500 mg Q8 PASCUAL Administration Clonazepam 1 mg 12/13/18 16:20 Klonopin PO DAILY PRN PRN restless leg syndrome Cyclobenzaprine HCl 5 mg 12/13/18 16:20 Cyclobenzaprine Hcl PO TID PRN MUSCLE SPASM Fluticasone Propionate 1 puff 12/14/18 06:00 12/14/18 06:23 Flovent Diskus 250 Mcg INHALATION 1 puff BID PASCUAL Administration Furosemide 20 mg 12/14/18 06:00 12/14/18 06:20 Lasix PO 20 mg DAILY PASCUAL Administration Levothyroxine Sodium 112 mcg 12/14/18 06:00 12/14/18 06:19 Synthroid PO 112 mcg DAILY PASCUAL Administration Nutritional Formula (Lactose Free) 120 ml 12/14/18 07:45 Glucerna Shake PO TIDCM PASCUAL Nystatin 1 applic 12/13/18 22:00 12/14/18 06:24 Mycostatin Powder TOPICAL 1 applicatio TID PASCUAL Administration Protocol Ondansetron HCl 4 mg 12/13/18 21:36 12/13/18 21:54 Zofran Odt PO 4 mg Q8H PRN PRN Administration NAUSEA/VOMITING Oxycodone HCl 5 mg 12/13/18 21:35 12/14/18 06:18 Oxyir PO 5 mg Q6H PRN PRN Administration SEVERE PAIN (6-10/10) Pneumococcal 13-Valent Conj Vacc 0.5 ml 12/14/18 10:00 Prevnar-13 (Pcv-13) IM 12/14/18 10:01 .ONCE ONE Polyethylene Glycol 17 gm 12/14/18 06:00 12/14/18 06:18 Miralax PO 17 gm DAILY [facility] Administration Prednisone 10 mg 12/15/18 10:00 PO QODAY PASCUAL Prednisone 5 mg 12/14/18 08:00 PO QODAY PASCUAL Senna/Docusate Sodium 2 tablet 12/14/18 06:00 12/14/18 06:18 Senokot-S, Yola-Colace PO 2 tablet BID [facility] Administration Spironolactone 25 mg 12/14/18 06:00 12/14/18 06:19 Aldactone PO 25 mg DAILY [facility] Administration Trazodone HCl 150 mg 12/13/18 22:00 12/13/18 21:25 Desyrel PO 150 mg QHS [facility] Administration Tuberculin PPD 5 12/14/18 10:00 Tubersol, Aplisol, Ppd ID 12/14/18 10:01 X1 ONE Tuberculin PPD 5 12/21/18 10:00 Tubersol, Aplisol, Ppd ID 12/21/18 10:01 X1 ONE Warfarin Sodium 3 mg 12/14/18 17:00 Coumadin (Pbkc) PO [email or web address] [facility] Warfarin Sodium 1.5 mg 12/13/18 18:30 12/13/18 18:21 Coumadin (Pbkc) PO 1.5 mg [email or web address] [facility] Administration Problem List (Last Reviewed 10/25/18 @ 15:56 by Alex Lama MD) Closed head injury (Acute) Diabetes mellitus (Chronic) Pulmonary embolism (Chronic) Sleep apnea (Chronic) Insomnia (Chronic) COPD (chronic obstructive pulmonary disease) (Chronic) Breast cancer (Chronic) Gait difficulty (Acute) Vital Signs Temp Pulse Resp BP Pulse Ox 97.8 F 75 14 144/87 H 99 12/13/18 16:09 12/14/18 06:17 12/14/18 03:45 12/14/18 06:17 12/14/18 03:45 Oxygen Delivery Method Room Air Weight: 125.7 kg Body Mass Index (BMI) 46.0 Finger Stick Blood Glucose 139 Sodium 137 mmol/L (136-145) 12/14/18 05:05 Potassium 4.1 mmol/L (3.5-5.1) 12/14/18 05:05 Chloride 100 mmol/L (98-107) 12/14/18 05:05 Carbon Dioxide 30.0 mmol/L (21.0-32.0) 12/14/18 05:05 Anion Gap 7 (5-15) 12/14/18 05:05 BUN 19 mg/dL (7-18) H 12/14/18 05:05 Creatinine 1.11 mg/dL (0.55-1.02) H 12/14/18 05:05 Est GFR (MDRD) Af Amer 61 mL/min (>60) 12/14/18 05:05 Est GFR (MDRD) Non-Af 51 mL/min (>60) L 12/14/18 05:05 BUN/Creatinine Ratio 17.1 RATIO (10-20) 12/14/18 05:05 Glucose 138 mg/dL (74-106) H 12/14/18 05:05 Assessment/Plan: *1. Pain: Tylenol 1000mg PO Q6h PRN Pain, OxyIR 5mg PO Q6h PRN Severe Pain (6-10/10). Please consider updating Tylenol PRN reason to specify pain scale. Please continue to monitor for signs/symptoms of increased/decreased pain. 2. R-elbow Cellulitis: Cephalexin 500mg PO Q8h thru 12/17/18. Please continue to monitor patient for resolution of infection. 3. Asthma: Flovent Diskus 250mcg 1 puff INH BID, Albuterol nebulization Q2h PRN SOB/Wheezing, Prednisone 5mg PO and 10mg PO alternating every other day. Please continue to monitor patient for increased/decreased symptoms of exacerbation, blood glucose d/t steroid use 4. Breast Cancer: Anastrozole 1mg PO daily. Please continue to monitor. *5. Hyperlipidemia: Lipitor 20mg PO QHS. No lipid panel on file for patient in [facility]. Please consider ordering a lipid panel for this patient to monitor lipids on a routine basis. 6. Hypothyroidism: Synthroid 112mcg PO daily. Please continue to monitor patient for increased or decreased symptoms. Last thyroid function documented 04/15. Please consider reordering thyroid function tests if patient develops symptoms. 7. Muscle Spasms: Flexeril 5mg PO TID PRN. Please continue to monitor use and for side effects. Pt on a muscle relaxer, benzodiazepine, and opiate which can cause respiratory depression and CAREER SERVICES DIRECTOR effects when used concurrently. 8. Edema: Lasix 20mg PO daily, Spironolactone 25mg PO daily. Please continue to monitor fluid status, urine output, and electrolytes as clinically indicated. 9. Lupus Anticoagulant disorder: Warfarin 1.5mg PO Mo// and 3mg PO all other days. Please continue to monitor INR and for signs/symptoms of bleeding *10. Diabetes Type II: Patient's A1c = 8.8 from 11/2018, not currently on any medications. Please consider adding an antidiabetic agent such as insulin. Psychotropic Medications: 1. Anxiety: Bupropion XL 150mg PO daily. Please consider a GDR by 05/2019 if clinically indicated. *2. Restless Leg Syndrome: Clonazepam 1mg PO daily PRN. Please consider changing patient to an alternative medication for RLS (ex: Mirapex). Clonazepam is off-label, not recommended classification. Additionally, pt is prescribed opiates, muscle relaxant, and benzodiazepine which is not recommended due to side effects. 3. Insomnia: Trazodone 150mg PO QHS. Please consider a GDR by 05/2019 if clinically indicated. Unnecessary Medications: Zofran 4mg PO Q8h PRN: No medical indication noted on chart for use Please consider discontinuing if not needed. Bowel Regimen: Miralax 17g PO Daily, Senna/Docusate 2T PO BID, Bisacodyl 10mg PO daily PRN. Please continue to monitor for increased/decreased bowel movements and diarrhea Date of Note:: 12/14/18 - Provider Comments Provider responsibility: Provider responsible to enter orders to implement recommendations <Luis E Sandoval Chi - Last Filed: 12/14/18 16:15> Progress Note - Pharmacy Subjective: [] Objective: Allergies acetaminophen [From Vicodin] Adverse Reaction (Verified 12/10/18 17:06) Unknown hydrocodone bitartrate [From Vicodin] Adverse Reaction (Verified 12/10/18 17:06) Upset Stomach Current Medications Generic Name Dose Route Start Last Admin Trade Name Freq PRN Reason Stop Dose Admin Acetaminophen 1,000 mg 12/13/18 21:36 12/14/18 09:40 Tylenol PO 1,000 mg Q6H PRN PRN Administration PAIN Albuterol Sulfate 2.5 mg 12/13/18 16:20 Ventolin Aerosols INHALATION Q2H PRN PRN dyspnea, wheezing Anastrozole 1 mg 12/14/18 06:00 12/14/18 06:20 Arimidex PO 1 mg DAILY PASCUAL Administration Atorvastatin Calcium 20 mg 12/13/18 22:00 12/13/18 21:25 Lipitor PO 20 mg QHS PASCUAL Administration Bisacodyl 10 mg 12/13/18 20:46 Dulcolax PO DAILY PRN Constipation Bupropion HCl 150 mg 12/14/18 06:00 12/14/18 06:19 Wellbutrin Xl PO 150 mg DAILY [facility] Administration Cephalexin 500 mg 12/13/18 22:00 12/14/18 13:30 Keflex PO 12/17/18 22:01 500 mg Q8 PASCUAL Administration Clonazepam 1 mg 12/13/18 16:20 Klonopin PO DAILY PRN PRN restless leg syndrome Cyclobenzaprine HCl 5 mg 12/13/18 16:20 12/14/18 15:27 Cyclobenzaprine Hcl PO 5 mg TID PRN Administration MUSCLE SPASM Fluticasone Propionate 1 puff 12/14/18 06:00 12/14/18 06:23 Flovent Diskus 250 Mcg INHALATION 1 puff BID PASCUAL Administration Furosemide 20 mg 12/14/18 06:00 12/14/18 06:20 Lasix PO 20 mg DAILY PASCUAL Administration Levothyroxine Sodium 112 mcg 12/14/18 06:00 12/14/18 06:19 Synthroid PO 112 mcg DAILY PASCUAL Administration Nutritional Formula (Lactose Free) 120 ml 12/14/18 07:45 12/14/18 11:24 Glucerna Shake PO 120 ml TIDCM PASCUAL Administration Nystatin 1 applic 12/13/18 22:00 12/14/18 13:31 Mycostatin Powder TOPICAL 1 applicatio TID PASCUAL Administration Protocol Ondansetron HCl 4 mg 12/13/18 21:36 12/13/18 21:54 Zofran Odt PO 4 mg Q8H PRN PRN Administration NAUSEA/VOMITING Oxycodone HCl 5 mg 12/13/18 21:35 12/14/18 06:18 Oxyir PO 5 mg Q6H PRN PRN Administration SEVERE PAIN (6-10/10) Polyethylene Glycol 17 gm 12/14/18 06:00 12/14/18 06:18 Miralax PO 17 gm DAILY PASCUAL Administration Prednisone 10 mg 12/15/18 10:00 PO QODAY PASCUAL Prednisone 5 mg 12/14/18 08:00 12/14/18 09:41 PO 5 mg QODAY PASCUAL Administration Senna/Docusate Sodium 2 tablet 12/14/18 06:00 12/14/18 06:18 Senokot-S, Yola-Colace PO 2 tablet BID [facility]AL Administration Spironolactone 25 mg 12/14/18 06:00 12/14/18 06:19 Aldactone PO 25 mg DAILY [facility]AL Administration Trazodone HCl 150 mg 12/13/18 22:00 12/13/18 21:25 Desyrel PO 150 mg QHS PASCUAL Administration Tuberculin PPD 5 tu 12/21/18 10:00 Tubersol, Aplisol, Ppd ID 12/21/18 10:01 X1 ONE Warfarin Sodium 3 mg 12/14/18 17:00 Coumadin (Pbkc) PO [email or web address] [facility] Warfarin Sodium 1.5 mg 12/13/18 18:30 12/13/18 18:21 Coumadin (Pbkc) PO 1.5 mg [email or web address] [facility] Administration Problem List (Last Reviewed 10/25/18 @ 15:56 by Alex Lama MD) Closed head injury (Acute) Diabetes mellitus (Chronic) Pulmonary embolism (Chronic) Sleep apnea (Chronic) Insomnia (Chronic) COPD (chronic obstructive pulmonary disease) (Chronic) Breast cancer (Chronic) Gait difficulty (Acute) Vital Signs Temp Pulse Resp BP Pulse Ox 98.7 F 94 20 H 139/90 H 92 12/14/18 15:33 12/14/18 15:33 12/14/18 15:33 12/14/18 15:33 12/14/18 15:33 Oxygen Delivery Method Room Air Weight: 125.7 kg Body Mass Index (BMI) 46.0 Finger Stick Blood Glucose 139 Sodium 137 mmol/L (136-145) 12/14/18 05:05 Potassium 4.1 mmol/L (3.5-5.1) 12/14/18 05:05 Chloride 100 mmol/L (98-107) 12/14/18 05:05 Carbon Dioxide 30.0 mmol/L (21.0-32.0) 12/14/18 05:05 Anion Gap 7 (5-15) 12/14/18 05:05 BUN 19 mg/dL (7-18) H 12/14/18 05:05 Creatinine 1.11 mg/dL (0.55-1.02) H 12/14/18 05:05 Est GFR (MDRD) Af Amer 61 mL/min (>60) 12/14/18 05:05 Est GFR (MDRD) Non-Af 51 mL/min (>60) L 12/14/18 05:05 BUN/Creatinine Ratio 17.1 RATIO (10-20) 12/14/18 05:05 Glucose 138 mg/dL (74-106) H 12/14/18 05:05 Assessment/Plan: Psychotropic Medications: Unnecessary Medications: Bowel Regimen: - Provider Comments Provider responsibility: Provider responsible to enter orders to implement recommendations Provider Comments to Recommendations by Pharmacy: Agree
[2018-12-14 08:00] VITALS: O2SAT 96
[2018-12-14] MEDS: predniSONE 5 MG Tablet PO ×2 (08:09→09:41)
[2018-12-14] MEDS: Glucerna Shake 120 ML LIQUID PO ×3 (08:11→17:38)
--- NOTE | 2018-12-14 08:24 | CPS ---
BiPAP taken of per nursing staff at unknown time.
[2018-12-14 08:36] LABS: International Normalized Ratio 2.7; Prothrombin Time (Protime)PT. 28.8 SECONDS (11.7-14.9)
[2018-12-14] MEDS: Acetaminophen 500 MG Tablet 1000 MG PO (09:40)
[2018-12-14] MEDS: Tuberculin,Purif.prot.deriv. 50 TU/ML Vial 5 ML ID (10:28)
[2018-12-14 11:01] LABS: Bedside Glucose 258 mg/dL (70-110)
--- NOTE | 2018-12-14 12:08 | CASEMGMT ---
Social Work Met with patient for initial assessment. Patient lives at home with her spouse who assists with personal care, cooking, cleaning and transportation. is currently a patient as well and may be unable to care for her for a couple months. Pt states they were looking to hire [facility] private duty aides right before hospitalization, but if she needs more care than what they can provide, she would be okay transferring to [facility] until returned home. Pt states they would be comfortable financially to private pay. Provided pt with [facility] pv. pay rate. Explained insurance coverage and NRD 12/18 and continued stay is not guaranteed. Will discuss progress in care plan meeting 12/20. Will continue to follow for discharge planning. NOA AlvarezW
[2018-12-14 14:15] LABS: Pathologist Review Reviewed
[2018-12-14] MEDS: cycloBENZAPRine HCl 5 MG TABLET PO (15:27)
[2018-12-14 15:33] VITALS: BP 139/90; PULSE 94; RESP 20; TEMP 37.1; O2SAT 92
[2018-12-14 17:06] LABS: Bedside Glucose 209 mg/dL (70-110)
[2018-12-14] MEDS: Bisacodyl 5 MG Tablet 10 MG PO (17:58)
--- NOTE | 2018-12-14 17:59 | NURSING ---
Addendum entered by Annette Gann 12/15/18 07:06: Had medium results following SSE. Feels like she may go more. Addendum entered by Montse Haney 12/14/18 22:59: Dr. Sandoval updated on no results. Last BM 12/09. New order for SSE. Addendum entered by Delmi Leon 12/14/18 18:16: mag citrate given previously with no results, so LEAD CARE MANAGER gave po dulcolax per pt request. Original Note: PRN DULCOLAX GIVEN, SPARKLE FREGOSO AWARE
[2018-12-14] MEDS: traZODone 100 MG Tablet 150 MG PO (20:42)
[2018-12-14] MEDS: Atorvastatin Calcium 20 MG Tablet PO (20:43)
[2018-12-14 21:51] LABS: Bedside Glucose 271 mg/dL (70-110)
[2018-12-15 06:36] LABS: Bedside Glucose 240 mg/dL (70-110)
[2018-12-15] MEDS: Spironolactone 25 MG Tablet PO (06:37)
[2018-12-15] MEDS: Anastrozole 1 MG Tablet PO (06:38)
[2018-12-15] MEDS: Cephalexin 500 MG Capsule PO ×3 (06:38→20:18)
[2018-12-15] MEDS: Polyethylene Glycol 3350 17 GM PACKET PO (06:39)
[2018-12-15] MEDS: Levothyroxine 112 MCG Tablet PO (06:39)
[2018-12-15] MEDS: buPROPion (XL) 150 MG TABLET.XL PO (06:39)
[2018-12-15] MEDS: Senna/Docusate Sodium 1 Tablet 2 TABLET PO ×2 (06:39→17:40)
[2018-12-15] MEDS: Furosemide 20 MG Tablet PO (06:39)
[2018-12-15] MEDS: Nystatin Powder 15gm Bottle 1 APPLIC TOPICAL ×3 (06:44→20:22)
[2018-12-15] MEDS: oxyCODONE 5 MG Tablet PO ×2 (07:54→13:57)
[2018-12-15] MEDS: Glucerna Shake 120 ML LIQUID PO ×3 (10:19→17:39)
[2018-12-15] MEDS: predniSONE 10 MG Tablet PO (10:20)
[2018-12-15 11:21] LABS: Bedside Glucose 209 mg/dL (70-110)
[2018-12-15] MEDS: Insulin Lispro 100 UNIT/ML INSULN.PEN 7 UNIT SC ×2 (11:58→17:40)
[2018-12-15] MEDS: cycloBENZAPRine HCl 5 MG TABLET PO (12:00)
[2018-12-15] MEDS: Acetaminophen 500 MG Tablet 1000 MG PO (12:01)
--- NOTE | 2018-12-15 14:32 | NURSING ---
dr Cruz consulter per pt & request d/t chronic rt shoulder and lower back pain. see dr cruz and gets injections that are helpful. Dr cruz will be in on Tuesday and pt/ aware. Kpad applied to assist with comfort.
[2018-12-15 14:56] VITALS: BP 123/92; PULSE 96; RESP 20; TEMP 35.9; O2SAT 92
[2018-12-15 16:56] LABS: Bedside Glucose 231 mg/dL (70-110)
[2018-12-15] MEDS: traZODone 100 MG Tablet 150 MG PO (20:15)
[2018-12-15] MEDS: Atorvastatin Calcium 20 MG Tablet PO (20:16)
[2018-12-15 21:11] LABS: Bedside Glucose 228 mg/dL (70-110)
[2018-12-16 06:26] LABS: Bedside Glucose 141 mg/dL (70-110)
[2018-12-16] MEDS: Levothyroxine 112 MCG Tablet PO (06:54)
[2018-12-16] MEDS: Anastrozole 1 MG Tablet PO (06:54)
[2018-12-16] MEDS: Spironolactone 25 MG Tablet PO (06:54)
[2018-12-16] MEDS: Cephalexin 500 MG Capsule PO ×3 (06:54→21:54)
[2018-12-16] MEDS: Furosemide 20 MG Tablet PO (06:54)
[2018-12-16] MEDS: buPROPion (XL) 150 MG TABLET.XL PO (06:54)
[2018-12-16] MEDS: Nystatin Powder 15gm Bottle 1 APPLIC TOPICAL ×3 (06:54→21:59)
[2018-12-16] MEDS: Senna/Docusate Sodium 1 Tablet 2 TABLET PO ×2 (06:54→16:55)
[2018-12-16] MEDS: Polyethylene Glycol 3350 17 GM PACKET PO (07:11)
[2018-12-16] MEDS: Glucerna Shake 120 ML LIQUID PO ×3 (08:49→16:56)
[2018-12-16] MEDS: Insulin Lispro 100 UNIT/ML INSULN.PEN 7 UNIT SC ×3 (08:51→16:56)
[2018-12-16] MEDS: predniSONE 5 MG Tablet PO (08:58)
[2018-12-16] MEDS: Acetaminophen 500 MG Tablet 1000 MG PO (09:00)
--- NOTE | 2018-12-16 09:36 | NURSING ---
This nurse offered to apply Kpad to lower back. Pt refused at this time.
[2018-12-16] MEDS: oxyCODONE 5 MG Tablet PO (09:55)
[2018-12-16 11:25] LABS: Bedside Glucose 170 mg/dL (70-110)
[2018-12-16 15:22] VITALS: BP 137/76; PULSE 95; RESP 20; TEMP 36.6; O2SAT 92
[2018-12-16 16:30] LABS: Bedside Glucose 198 mg/dL (70-110)
[2018-12-16 21:36] LABS: Bedside Glucose 167 mg/dL (70-110)
[2018-12-16] MEDS: traZODone 100 MG Tablet 150 MG PO (21:54)
[2018-12-16] MEDS: Atorvastatin Calcium 20 MG Tablet PO (21:54)
[2018-12-16 23:12] VITALS: PULSE 64; RESP 18; O2SAT 96
[2018-12-17] MEDS: Senna/Docusate Sodium 1 Tablet 2 TABLET PO ×2 (06:15→18:03)
[2018-12-17] MEDS: Levothyroxine 112 MCG Tablet PO (06:16)
[2018-12-17] MEDS: buPROPion (XL) 150 MG TABLET.XL PO (06:16)
[2018-12-17] MEDS: Anastrozole 1 MG Tablet PO (06:16)
[2018-12-17] MEDS: Polyethylene Glycol 3350 17 GM PACKET PO (06:16)
[2018-12-17] MEDS: Cephalexin 500 MG Capsule PO ×3 (06:16→21:53)
[2018-12-17] MEDS: Spironolactone 25 MG Tablet PO (06:16)
[2018-12-17] MEDS: Furosemide 20 MG Tablet PO (06:16)
[2018-12-17] MEDS: Bisacodyl 5 MG Tablet 10 MG PO (06:22)
[2018-12-17] MEDS: Nystatin Powder 15gm Bottle 1 APPLIC TOPICAL ×3 (06:23→21:56)
[2018-12-17 06:30] LABS: Bedside Glucose 102 mg/dL (70-110)
[2018-12-17] MEDS: Glucerna Shake 120 ML LIQUID PO ×3 (08:42→18:02)
[2018-12-17] MEDS: predniSONE 10 MG Tablet PO (08:43)
[2018-12-17] MEDS: Insulin Lispro 100 UNIT/ML INSULN.PEN 7 UNIT SC ×3 (08:43→18:02)
[2018-12-17] MEDS: Acetaminophen 500 MG Tablet 1000 MG PO (10:29)
[2018-12-17] MEDS: cycloBENZAPRine HCl 5 MG TABLET PO (11:30)
[2018-12-17 11:36] LABS: Bedside Glucose 209 mg/dL (70-110)
[2018-12-17 15:23] VITALS: BP 124/59; PULSE 100; RESP 18; TEMP 36.6; O2SAT 93
--- NOTE | 2018-12-17 15:31 | NURSING ---
This nurse aware of Vitals Signs that were recently taken by Robert MIDDLETON.
[2018-12-17 17:10] LABS: Bedside Glucose 223 mg/dL (70-110)
[2018-12-17 21:51] LABS: Bedside Glucose 153 mg/dL (70-110)
[2018-12-17] MEDS: traZODone 100 MG Tablet 150 MG PO (21:51)
[2018-12-17] MEDS: Atorvastatin Calcium 20 MG Tablet PO (21:53)
[2018-12-17 21:57] VITALS: RESP 18; O2SAT 97
[2018-12-18] MEDS: clonazePAM 1 MG Tablet PO (00:24)
[2018-12-18] MEDS: Spironolactone 25 MG Tablet PO (05:24)
[2018-12-18] MEDS: Levothyroxine 112 MCG Tablet PO (05:24)
[2018-12-18] MEDS: Anastrozole 1 MG Tablet PO (05:24)
[2018-12-18] MEDS: Senna/Docusate Sodium 1 Tablet 2 TABLET PO ×2 (05:24→18:13)
[2018-12-18] MEDS: Polyethylene Glycol 3350 17 GM PACKET PO (05:24)
[2018-12-18] MEDS: Bisacodyl 5 MG Tablet 10 MG PO (05:24)
[2018-12-18] MEDS: Furosemide 20 MG Tablet PO (05:24)
[2018-12-18] MEDS: buPROPion (XL) 150 MG TABLET.XL PO (05:24)
[2018-12-18] MEDS: Nystatin Powder 15gm Bottle 1 APPLIC TOPICAL ×3 (05:26→20:48)
[2018-12-18 05:52] LABS: International Normalized Ratio 1.9; Prothrombin Time (Protime)PT. 21.9 SECONDS (11.7-14.9)
[2018-12-18 06:30] LABS: Bedside Glucose 152 mg/dL (70-110)
[2018-12-18] MEDS: Insulin Lispro 100 UNIT/ML INSULN.PEN 7 UNIT SC ×3 (07:59→18:15)
[2018-12-18] MEDS: predniSONE 5 MG Tablet PO (10:24)
[2018-12-18] MEDS: Glucerna Shake 120 ML LIQUID PO ×2 (10:24→11:49)
[2018-12-18 10:41] LABS: Bedside Glucose 159 mg/dL (70-110)
[2018-12-18 15:11] VITALS: BP 159/101; PULSE 91; RESP 20; TEMP 36.2; O2SAT 95
[2018-12-18 16:05] VITALS: BP 116/86
--- NOTE | 2018-12-18 16:57 | NURSING ---
dr gooden made aware no bm since 12/15. new order for [employer] 1000ml.
[2018-12-18 17:21] LABS: Bedside Glucose 245 mg/dL (70-110)
--- NOTE | 2018-12-18 18:20 | NURSING ---
pt had small hard bm. golytely started per orders.
[2018-12-18] MEDS: oxyCODONE 5 MG Tablet PO (18:21)
[2018-12-18] MEDS: Electrolyte Solution/Peg's 4000 ML 1000 ML PO (18:21)
--- NOTE | 2018-12-18 19:02 | NURSING ---
butrans patch applied to left chest per orders.
[2018-12-18] MEDS: traZODone 100 MG Tablet 150 MG PO (20:47)
[2018-12-18] MEDS: Atorvastatin Calcium 20 MG Tablet PO (20:47)
[2018-12-18 20:50] VITALS: RESP 18; O2SAT 97
[2018-12-18 21:40] LABS: Bedside Glucose 154 mg/dL (70-110)
[2018-12-19] MEDS: Polyethylene Glycol 3350 17 GM PACKET PO (05:38)
[2018-12-19] MEDS: Levothyroxine 112 MCG Tablet PO (05:38)
[2018-12-19] MEDS: Spironolactone 25 MG Tablet PO (05:38)
[2018-12-19] MEDS: buPROPion (XL) 150 MG TABLET.XL PO (05:38)
[2018-12-19] MEDS: Senna/Docusate Sodium 1 Tablet 2 TABLET PO ×2 (05:38→18:05)
[2018-12-19] MEDS: Anastrozole 1 MG Tablet PO (05:38)
[2018-12-19] MEDS: Furosemide 20 MG Tablet PO (05:38)
[2018-12-19] MEDS: Nystatin Powder 15gm Bottle 1 APPLIC TOPICAL ×3 (05:41→21:51)
[2018-12-19] MEDS: Lidocaine 5% Patch 1 PATCH TOPICAL (05:43)
--- NOTE | 2018-12-19 05:51 | NURSING ---
Resident has lidoderm patch to right shoulder and butran patch to LILLIAN chest.
[2018-12-19 06:30] LABS: Bedside Glucose 127 mg/dL (70-110)
[2018-12-19] MEDS: Insulin Lispro 100 UNIT/ML INSULN.PEN 7 UNIT SC ×3 (08:42→18:02)
[2018-12-19] MEDS: predniSONE 10 MG Tablet PO (08:43)
--- NOTE | 2018-12-19 08:46 | NURSING ---
Butrans patch present and intact to left upper chest.
[2018-12-19 10:00] VITALS: RESP 18; O2SAT 97
[2018-12-19 11:56] LABS: Bedside Glucose 145 mg/dL (70-110)
--- NOTE | 2018-12-19 12:31 | CASEMGMT ---
Insurance: continued stay review faxed to [facility] this day. Auth # [id number].
[2018-12-19] MEDS: oxyCODONE 5 MG Tablet PO (12:51)
[2018-12-19 15:12] VITALS: BP 130/87; PULSE 99; RESP 20; TEMP 36.7; O2SAT 92
[2018-12-19 17:05] LABS: Bedside Glucose 225 mg/dL (70-110)
--- NOTE | 2018-12-19 18:38 | NURSING ---
Verified placement of Butrans patch at this time. Patch still present and intact to left upper chest.
[2018-12-19 21:36] LABS: Bedside Glucose 139 mg/dL (70-110)
[2018-12-19] MEDS: Atorvastatin Calcium 20 MG Tablet PO (21:50)
[2018-12-19] MEDS: traZODone 100 MG Tablet 150 MG PO (21:50)
[2018-12-20] MEDS: buPROPion (XL) 150 MG TABLET.XL PO (06:16)
[2018-12-20] MEDS: Levothyroxine 112 MCG Tablet PO (06:16)
[2018-12-20] MEDS: Senna/Docusate Sodium 1 Tablet 2 TABLET PO ×2 (06:16→17:49)
[2018-12-20] MEDS: Spironolactone 25 MG Tablet PO (06:16)
[2018-12-20] MEDS: Anastrozole 1 MG Tablet PO (06:16)
[2018-12-20] MEDS: Furosemide 20 MG Tablet PO (06:16)
[2018-12-20] MEDS: Polyethylene Glycol 3350 17 GM PACKET PO (06:16)
[2018-12-20] MEDS: Nystatin Powder 15gm Bottle 1 APPLIC TOPICAL ×3 (06:17→21:35)
[2018-12-20] MEDS: Lidocaine 5% Patch 1 PATCH TOPICAL (06:18)
[2018-12-20 06:26] LABS: Bedside Glucose 99 mg/dL (70-110)
[2018-12-20] MEDS: oxyCODONE 5 MG Tablet PO (06:41)
[2018-12-20] MEDS: predniSONE 5 MG Tablet PO (08:35)
[2018-12-20 11:20] LABS: Bedside Glucose 218 mg/dL (70-110)
[2018-12-20 15:55] VITALS: BP 120/88; PULSE 99; RESP 20; TEMP 37.1; O2SAT 92
[2018-12-20 17:06] LABS: Bedside Glucose 223 mg/dL (70-110)
--- NOTE | 2018-12-20 18:14 | CASEMGMT ---
Social Work IDT met with patient and for care plan meeting. Discussed patient requiring max assist with ADLs. Nursing managing pain. Pt is continuing to work with therapy for further improvement. Awaiting outcome from insurance update 12/19 - continued stay is not guaranteed. Pt will pay privately and SNF until can become caregiver again. Will continue to follow. Mercy Rodriguez, PROFESSOR OF LEGAL STUDIES PRODUCTION TRAINER
--- NOTE | 2018-12-20 18:31 | NURSING ---
Assisted pt to bathroom while in 's room per pt request. Refused to ambulate to BR stating she had to go in a hurry. Wheeled pt in BR in recliner chair and stood up at bar w/o difficulty. Assisted with removing pants for toileting. Assisted off toilet x1 assist w/o difficulty. Pt then returned next to in recliner chair and stated to I know you don't believe me, but I was in a lot of pain. Pt showing no s/s of discomfort at this time. States the new patch is working.
--- NOTE | 2018-12-20 20:50 | PCA ---
This complex director offered resident a shower this evening, and said she would rather receive a bed bath due to being in too much pain. Stated she would eventually like to shower when feeling better and pain is less severe. Resident mentioned that it would feel nice to get her hair washed. This complex director offered shower cap but resident refused.
[2018-12-20 20:51] LABS: Bedside Glucose 191 mg/dL (70-110)
[2018-12-20] MEDS: Atorvastatin Calcium 20 MG Tablet PO (21:34)
[2018-12-20] MEDS: traZODone 100 MG Tablet 150 MG PO (21:34)
[2018-12-20 22:37] VITALS: RESP 18; O2SAT 95
[2018-12-21 05:52] LABS: Absolute Lymphocyte Count 1.11 X10^3/uL (0.83-4.51); Absolute Neutrophil Count 4.7 X10^3/uL (2.0-7.7); Basophil# 0.04 X10^3/uL; Basophil% 0.6 % (0-1); Eosinophil# 0.07 X10^3/uL; Hematocrit 39.2 % (37-47); Hemoglobin 11.8 g/dL (12.0-15.0); Lymphocyte # 1.11 X10^3/ul (4.0); Lymphocyte % 16.2 % (19-41); Mean Corp Hgb Conc 30.1 g/dL (32-36); Mean Corpuscular Hgb 28.9 pg (27.0-32.0); Mean Corpuscular Volume 95.8 fL (81-99); Mean Platelet Vol. 8.6 fl (6.2-12.0); Monocyte# 0.64 X10^3/uL; Monocyte% 9.3 % (0-10); NRBC Flagged by Analyzer 0.3 % (0-5); Neutrophil # 4.69 X10^3/uL (2.7-7.7); Neutrophil % 68.2 % (47-70); Platelet Count 261 K/mm3 (150-450); RBC Distribution Width CV 15.8 % (11.6-14.6); Red Blood Count 4.09 M/mm3 (4.2-5.4); White Blood Count 6.9 K/mm3 (4.4-11.0)
[2018-12-21 05:56] LABS: Prothrombin Time (Protime)PT. 22.3 SECONDS (11.7-14.9)
[2018-12-21] MEDS: Anastrozole 1 MG Tablet PO (06:04)
[2018-12-21] MEDS: Spironolactone 25 MG Tablet PO (06:04)
[2018-12-21] MEDS: Lidocaine 5% Patch 1 PATCH TOPICAL (06:05)
[2018-12-21] MEDS: Polyethylene Glycol 3350 17 GM PACKET PO (06:05)
[2018-12-21] MEDS: Nystatin Powder 15gm Bottle 1 APPLIC TOPICAL ×3 (06:05→21:16)
[2018-12-21] MEDS: Furosemide 20 MG Tablet PO (06:05)
[2018-12-21 06:06] LABS: Anion Gap 7 (5-15); BUN 20 mg/dL (7-18); BUN/Creat Ratio 15.6 RATIO (10-20); Calcium,Total 8.8 mg/dL (8.5-10.1); Chloride 103 mmol/L (98-107); Creatinine, Serum 1.28 mg/dL (0.55-1.02); EST Glomerular Filtration Rate 43 mL/min (>60); Est Glom Filt Rate - Afr Amer 52 mL/min (>60); Estimated Creatinine Clearance 33.65 ml/min; Glucose 111 mg/dL (74-106); Potassium 4.2 mmol/L (3.5-5.1); Sodium Level 141 mmol/L (136-145)
[2018-12-21] MEDS: buPROPion (XL) 150 MG TABLET.XL PO (06:06)
[2018-12-21] MEDS: Senna/Docusate Sodium 1 Tablet 2 TABLET PO ×2 (06:06→17:13)
[2018-12-21] MEDS: Levothyroxine 112 MCG Tablet PO (06:06)
[2018-12-21 06:15] LABS: Bedside Glucose 107 mg/dL (70-110)
[2018-12-21] MEDS: Bisacodyl 5 MG Tablet 10 MG PO (08:46)
[2018-12-21 11:16] LABS: Bedside Glucose 218 mg/dL (70-110)
[2018-12-21] MEDS: Tuberculin,Purif.prot.deriv. 50 TU/ML Vial 5 ML ID (11:21)
[2018-12-21] MEDS: predniSONE 10 MG Tablet PO (11:29)
[2018-12-21 15:31] VITALS: BP 130/85; PULSE 92; RESP 18; TEMP 36.6; O2SAT 94
[2018-12-21 17:11] LABS: Bedside Glucose 215 mg/dL (70-110)
--- NOTE | 2018-12-21 18:28 | NURSING ---
NO for 50,000units vitamin D qThursday
[2018-12-21] MEDS: traZODone 100 MG Tablet 150 MG PO (21:12)
[2018-12-21] MEDS: Atorvastatin Calcium 20 MG Tablet PO (21:13)
[2018-12-21 21:20] LABS: Bedside Glucose 196 mg/dL (70-110)
[2018-12-22] MEDS: Anastrozole 1 MG Tablet PO (05:22)
[2018-12-22] MEDS: Polyethylene Glycol 3350 17 GM PACKET PO (05:22)
[2018-12-22] MEDS: Senna/Docusate Sodium 1 Tablet 2 TABLET PO ×2 (05:22→16:56)
[2018-12-22] MEDS: Furosemide 20 MG Tablet PO (05:23)
[2018-12-22] MEDS: Spironolactone 25 MG Tablet PO (05:23)
[2018-12-22] MEDS: buPROPion (XL) 150 MG TABLET.XL PO (05:23)
[2018-12-22] MEDS: Levothyroxine 112 MCG Tablet PO (05:23)
[2018-12-22] MEDS: Nystatin Powder 15gm Bottle 1 APPLIC TOPICAL ×3 (05:26→21:59)
[2018-12-22 06:31] LABS: Bedside Glucose 132 mg/dL (70-110)
[2018-12-22] MEDS: predniSONE 5 MG Tablet PO (08:12)
[2018-12-22] MEDS: Lidocaine 5% Patch 1 PATCH TOPICAL (08:12)
--- NOTE | 2018-12-22 11:53 | CASEMGMT ---
Addendum entered by Adri Plata 12/22/18 11:55: correction: auth # [id number] Original Note: Insurance: Continues stay approved. Next update due 12/25/18. Auth # [id number]
--- NOTE | 2018-12-22 11:57 | CASEMGMT ---
Social Work Notified pt and about insurance approving pt for more time, NRD 12/25. When pt is issued LCD, pt will pay privately at whichever SNF transfers to until he can assume primary caregiver roles. Will continue to follow. Mercy Rodriguez, PV DESIGN AND INSTALLATION TECHNICIAN VENDOR REPRESENTATIVES
[2018-12-22 12:05] LABS: Bedside Glucose 173 mg/dL (70-110)
[2018-12-22 16:00] VITALS: BP 135/92; PULSE 102; RESP 20; TEMP 36.7; O2SAT 96
[2018-12-22 17:00] LABS: Bedside Glucose 176 mg/dL (70-110)
[2018-12-22 21:21] LABS: Bedside Glucose 211 mg/dL (70-110)
[2018-12-22] MEDS: traZODone 100 MG Tablet 150 MG PO (21:58)
[2018-12-22] MEDS: Atorvastatin Calcium 20 MG Tablet PO (21:58)
[2018-12-23] MEDS: Menthol/Lanolin/Calamine/Znox 113 GM Tube 1 APPLIC TOPICAL ×2 (05:27→21:02)
[2018-12-23] MEDS: Polyethylene Glycol 3350 17 GM PACKET PO (05:28)
[2018-12-23] MEDS: Anastrozole 1 MG Tablet PO (05:29)
[2018-12-23] MEDS: Furosemide 20 MG Tablet PO (05:29)
[2018-12-23] MEDS: buPROPion (XL) 150 MG TABLET.XL PO (05:29)
[2018-12-23] MEDS: Levothyroxine 112 MCG Tablet PO (05:29)
[2018-12-23] MEDS: Senna/Docusate Sodium 1 Tablet 2 TABLET PO ×2 (05:29→17:31)
[2018-12-23] MEDS: Nystatin Powder 15gm Bottle 1 APPLIC TOPICAL ×3 (05:30→21:02)
[2018-12-23] MEDS: Spironolactone 25 MG Tablet PO (05:30)
[2018-12-23 06:51] LABS: Bedside Glucose 123 mg/dL (70-110)
[2018-12-23] MEDS: predniSONE 10 MG Tablet PO (08:47)
[2018-12-23] MEDS: Lidocaine 5% Patch 1 PATCH TOPICAL (08:47)
[2018-12-23 11:21] LABS: Bedside Glucose 189 mg/dL (70-110)
[2018-12-23 16:00] VITALS: BP 145/96; PULSE 95; RESP 20; TEMP 36.3; O2SAT 96
[2018-12-23 17:06] LABS: Bedside Glucose 198 mg/dL (70-110)
[2018-12-23] MEDS: traZODone 100 MG Tablet 150 MG PO (21:01)
[2018-12-23] MEDS: Atorvastatin Calcium 20 MG Tablet PO (21:01)
[2018-12-23 21:11] LABS: Bedside Glucose 234 mg/dL (70-110)
--- NOTE | 2018-12-23 21:13 | NURSING ---
Shalini patch verified to Lt chest.
[2018-12-23 21:14] VITALS: PULSE 71; O2SAT 98
[2018-12-24] MEDS: Levothyroxine 112 MCG Tablet PO (06:19)
[2018-12-24] MEDS: Furosemide 20 MG Tablet PO (06:19)
[2018-12-24] MEDS: Spironolactone 25 MG Tablet PO (06:19)
[2018-12-24] MEDS: Polyethylene Glycol 3350 17 GM PACKET PO (06:20)
[2018-12-24] MEDS: Senna/Docusate Sodium 1 Tablet 2 TABLET PO ×2 (06:20→17:49)
[2018-12-24] MEDS: buPROPion (XL) 150 MG TABLET.XL PO (06:20)
[2018-12-24] MEDS: Anastrozole 1 MG Tablet PO (06:20)
[2018-12-24] MEDS: Nystatin Powder 15gm Bottle 1 APPLIC TOPICAL ×3 (06:29→21:21)
[2018-12-24] MEDS: Menthol/Lanolin/Calamine/Znox 113 GM Tube 1 APPLIC TOPICAL ×2 (06:29→21:20)
[2018-12-24 06:40] LABS: Bedside Glucose 161 mg/dL (70-110)
[2018-12-24] MEDS: predniSONE 5 MG Tablet PO (07:59)
[2018-12-24] MEDS: Lidocaine 5% Patch 1 PATCH TOPICAL (07:59)
[2018-12-24] MEDS: oxyCODONE 5 MG Tablet PO (08:02)
[2018-12-24 10:43] VITALS: RESP 20
[2018-12-24 10:56] LABS: Bedside Glucose 148 mg/dL (70-110)
[2018-12-24 16:00] VITALS: BP 120/90; PULSE 106; RESP 20; TEMP 36.4; O2SAT 95
[2018-12-24 17:05] LABS: Bedside Glucose 153 mg/dL (70-110)
--- NOTE | 2018-12-24 18:58 | NURSING ---
butrans patch intact to LT chest.
[2018-12-24] MEDS: traZODone 100 MG Tablet 150 MG PO (21:17)
[2018-12-24] MEDS: Atorvastatin Calcium 20 MG Tablet PO (21:17)
[2018-12-24 21:21] LABS: Bedside Glucose 154 mg/dL (70-110)
--- NOTE | 2018-12-24 21:24 | NURSING ---
Butrans intact to Lt chest.
[2018-12-25 05:43] LABS: International Normalized Ratio 1.8; Prothrombin Time (Protime)PT. 20.5 SECONDS (11.7-14.9)
[2018-12-25] MEDS: Furosemide 20 MG Tablet PO (06:19)
[2018-12-25] MEDS: buPROPion (XL) 150 MG TABLET.XL PO (06:19)
[2018-12-25] MEDS: Polyethylene Glycol 3350 17 GM PACKET PO (06:19)
[2018-12-25] MEDS: Senna/Docusate Sodium 1 Tablet 2 TABLET PO ×2 (06:19→16:58)
[2018-12-25] MEDS: Spironolactone 25 MG Tablet PO (06:19)
[2018-12-25] MEDS: Levothyroxine 112 MCG Tablet PO (06:19)
[2018-12-25] MEDS: Anastrozole 1 MG Tablet PO (06:19)
[2018-12-25] MEDS: Nystatin Powder 15gm Bottle 1 APPLIC TOPICAL ×3 (06:23→21:18)
[2018-12-25] MEDS: Menthol/Lanolin/Calamine/Znox 113 GM Tube 1 APPLIC TOPICAL ×2 (06:23→21:16)
[2018-12-25 06:25] LABS: Bedside Glucose 109 mg/dL (70-110)
[2018-12-25] MEDS: predniSONE 10 MG Tablet PO (08:57)
[2018-12-25] MEDS: oxyCODONE 5 MG Tablet PO (08:57)
[2018-12-25] MEDS: Lidocaine 5% Patch 1 PATCH TOPICAL (08:58)
--- NOTE | 2018-12-25 09:14 | MDS.RN ---
Information for the mds was obtained from review of the clinical record, interview of resident, staff and direct observation of resident's care.
[2018-12-25 11:06] LABS: Bedside Glucose 171 mg/dL (70-110)
--- NOTE | 2018-12-25 15:14 | CASEMGMT ---
Insurance Continued stay review faxed to insurance company. Will await continued stay determination. Auth# [id number] KAMRAN Powers
[2018-12-25 16:00] VITALS: BP 149/89; PULSE 115; RESP 20; TEMP 36.6; O2SAT 98
[2018-12-25] MEDS: Acetaminophen 500 MG Tablet 1000 MG PO (17:18)
[2018-12-25 17:20] LABS: Bedside Glucose 203 mg/dL (70-110)
--- NOTE | 2018-12-25 17:57 | NURSING ---
brandys patch wasted in Rx destroyer, VADIM Monroy witnessed
--- NOTE | 2018-12-25 19:37 | NURSING ---
Butrans patch applied to R chest this shift
[2018-12-25] MEDS: Atorvastatin Calcium 20 MG Tablet PO (21:14)
[2018-12-25] MEDS: traZODone 100 MG Tablet 150 MG PO (21:14)
[2018-12-25 21:20] LABS: Bedside Glucose 217 mg/dL (70-110)
[2018-12-26] MEDS: Senna/Docusate Sodium 1 Tablet 2 TABLET PO ×2 (06:05→16:58)
[2018-12-26] MEDS: Furosemide 20 MG Tablet PO (06:05)
[2018-12-26] MEDS: Menthol/Lanolin/Calamine/Znox 113 GM Tube 1 APPLIC TOPICAL ×2 (06:06→20:19)
[2018-12-26] MEDS: Nystatin Powder 15gm Bottle 1 APPLIC TOPICAL ×3 (06:06→20:19)
[2018-12-26] MEDS: Levothyroxine 112 MCG Tablet PO (06:06)
[2018-12-26] MEDS: buPROPion (XL) 150 MG TABLET.XL PO (06:06)
[2018-12-26] MEDS: Anastrozole 1 MG Tablet PO (06:06)
[2018-12-26] MEDS: Spironolactone 25 MG Tablet PO (06:06)
[2018-12-26 06:20] LABS: Bedside Glucose 134 mg/dL (70-110)
[2018-12-26 07:30] VITALS: O2SAT 95
[2018-12-26] MEDS: predniSONE 5 MG Tablet PO (09:19)
[2018-12-26] MEDS: Lidocaine 5% Patch 1 PATCH TOPICAL (09:19)
[2018-12-26] MEDS: Acetaminophen 500 MG Tablet 1000 MG PO (09:20)
[2018-12-26 11:26] LABS: Bedside Glucose 203 mg/dL (70-110)
--- NOTE | 2018-12-26 15:56 | CASEMGMT ---
Social Work Notified pt insurance approved more time - NRD 12/29. Spoke with pt about discharge plans as will not be able to care for her when she is discharged. Pt would like a referral to [facility] to pay privately. Referral made. Will continue to follow. Mercy Rodriguez, NOA KIMW
[2018-12-26 16:00] VITALS: BP 117/98; PULSE 107; RESP 20; TEMP 36.8; O2SAT 94
[2018-12-26] MEDS: oxyCODONE 5 MG Tablet PO (16:57)
[2018-12-26 17:41] LABS: Bedside Glucose 181 mg/dL (70-110)
[2018-12-26] MEDS: traZODone 100 MG Tablet 150 MG PO (20:17)
[2018-12-26] MEDS: Atorvastatin Calcium 20 MG Tablet PO (20:18)
[2018-12-26 22:05] LABS: Bedside Glucose 144 mg/dL (70-110)
[2018-12-27] MEDS: oxyCODONE 5 MG Tablet PO (01:01)
[2018-12-27] MEDS: Anastrozole 1 MG Tablet PO (06:17)
[2018-12-27] MEDS: Senna/Docusate Sodium 1 Tablet 2 TABLET PO ×2 (06:18→17:52)
[2018-12-27] MEDS: Furosemide 20 MG Tablet PO (06:18)
[2018-12-27] MEDS: Spironolactone 25 MG Tablet PO (06:18)
[2018-12-27] MEDS: buPROPion (XL) 150 MG TABLET.XL PO (06:18)
[2018-12-27] MEDS: Levothyroxine 112 MCG Tablet PO (06:18)
[2018-12-27 06:21] LABS: Bedside Glucose 124 mg/dL (70-110)
[2018-12-27] MEDS: Nystatin Powder 15gm Bottle 1 APPLIC TOPICAL ×3 (06:21→21:33)
[2018-12-27] MEDS: Menthol/Lanolin/Calamine/Znox 113 GM Tube 1 APPLIC TOPICAL ×2 (06:21→21:32)
[2018-12-27] MEDS: Lidocaine 5% Patch 1 PATCH TOPICAL (09:29)
[2018-12-27] MEDS: predniSONE 10 MG Tablet PO (09:39)
[2018-12-27] MEDS: Bisacodyl 5 MG Tablet 10 MG PO (09:42)
[2018-12-27] MEDS: Acetaminophen 500 MG Tablet 1000 MG PO (10:29)
[2018-12-27 11:00] LABS: Bedside Glucose 194 mg/dL (70-110)
--- NOTE | 2018-12-27 11:26 | NURSING ---
Butrans intact to rt chest.
--- NOTE | 2018-12-27 15:30 | CASEMGMT ---
Social Work Notified pt insurance approved with NRD 12/29. Followed up on referral to [facility] - they will notify SW of acceptance/denial. Mercy Rodriguez, ATTENDANT HONOR BAR LEAD MILITARY ANALYST
[2018-12-27 15:50] VITALS: BP 118/78; PULSE 106; RESP 18; TEMP 37.2; O2SAT 93
[2018-12-27 17:51] LABS: Bedside Glucose 220 mg/dL (70-110)
[2018-12-27 21:11] LABS: Bedside Glucose 152 mg/dL (70-110)
[2018-12-27] MEDS: Atorvastatin Calcium 20 MG Tablet PO (21:31)
[2018-12-27] MEDS: traZODone 100 MG Tablet 150 MG PO (21:31)
--- NOTE | 2018-12-27 22:52 | NURSING ---
Butrans patch intact to Rt chest.
[2018-12-28 05:49] LABS: Hematocrit 38.1 % (37-47); Hemoglobin 11.5 g/dL (12.0-15.0); Mean Corp Hgb Conc 30.2 g/dL (32-36); Mean Corpuscular Volume 96.2 fL (81-99); Mean Platelet Vol. 8.4 fl (6.2-12.0); POSITIVE COUNT YES; POSITIVE MORPHOLOGY YES; Platelet Count 233 K/mm3 (150-450); RBC Distribution Width CV 16.1 % (11.6-14.6); RBC Distribution Width SD 56.2 fl (35.1-43.9); Red Blood Count 3.96 M/mm3 (4.2-5.4); White Blood Count 7.1 K/mm3 (4.4-11.0)
[2018-12-28 05:57] LABS: Differential Indicated MANUAL DIFF
[2018-12-28 06:03] LABS: Anion Gap 7 (5-15); BUN 21 mg/dL (7-18); BUN/Creat Ratio 16.9 RATIO (10-20); Calcium,Total 8.5 mg/dL (8.5-10.1); Chloride 104 mmol/L (98-107); Creatinine, Serum 1.24 mg/dL (0.55-1.02); EST Glomerular Filtration Rate 45 mL/min (>60); Est Glom Filt Rate - Afr Amer 54 mL/min (>60); Estimated Creatinine Clearance 34.73 ml/min; Glucose 134 mg/dL (74-106); Potassium 4.3 mmol/L (3.5-5.1); Sodium Level 141 mmol/L (136-145)
[2018-12-28] MEDS: Anastrozole 1 MG Tablet PO (06:16)
[2018-12-28] MEDS: Senna/Docusate Sodium 1 Tablet 2 TABLET PO ×2 (06:16→17:39)
[2018-12-28] MEDS: Spironolactone 25 MG Tablet PO (06:17)
[2018-12-28] MEDS: Furosemide 20 MG Tablet PO (06:17)
[2018-12-28] MEDS: Polyethylene Glycol 3350 17 GM PACKET PO (06:17)
[2018-12-28] MEDS: Levothyroxine 112 MCG Tablet PO (06:17)
[2018-12-28] MEDS: buPROPion (XL) 150 MG TABLET.XL PO (06:17)
[2018-12-28] MEDS: Menthol/Lanolin/Calamine/Znox 113 GM Tube 1 APPLIC TOPICAL ×2 (06:22→21:08)
[2018-12-28] MEDS: Nystatin Powder 15gm Bottle 1 APPLIC TOPICAL ×3 (06:22→21:07)
[2018-12-28 06:31] LABS: Bedside Glucose 123 mg/dL (70-110)
[2018-12-28 06:50] LABS: Basophil 1 % (0-1); Eosinophil 2 % (0-5); Lymphocyte 21 % (19-41); Metamyelocyte 3 % (0-1); Monocyte 7 % (0-10); Neutrophil-Band 1 % (0-5); Neutrophil-Segmented 65 % (47-70); Platelet Estimate ADEQUATE (ADEQ); Red Cell Morphology NORM C+C NORMAL (NORM C&C); Total Cells Counted 100 (MANUAL DIFF)
[2018-12-28 06:51] LABS: Absolute Lymphocyte Count 1.49 X10^3/uL (0.83-4.51); Absolute Neutrophil Count 4.7 X10^3/uL (2.0-7.7); Lymphocyte # 1.49 X10^3/ul (4.0); Neutrophil # 4.71 X10^3/uL (2.7-7.7)
[2018-12-28] MEDS: oxyCODONE 5 MG Tablet PO ×2 (07:55→21:06)
[2018-12-28] MEDS: Lidocaine 5% Patch 1 PATCH TOPICAL (07:55)
[2018-12-28] MEDS: predniSONE 5 MG Tablet PO (07:56)
[2018-12-28 08:33] LABS: International Normalized Ratio 1.7; Prothrombin Time (Protime)PT. 20.2 SECONDS (11.7-14.9)
[2018-12-28 10:46] LABS: Bedside Glucose 179 mg/dL (70-110)
[2018-12-28 11:16] VITALS: PULSE 92; RESP 18; O2SAT 95
[2018-12-28 11:38] LABS: Pathologist Review Reviewed
--- NOTE | 2018-12-28 13:24 | NURSING ---
washingtonrans patch to RT upper chest intact.
[2018-12-28 15:12] VITALS: BP 130/98; PULSE 85; RESP 18; TEMP 36.8; O2SAT 95
--- NOTE | 2018-12-28 16:15 | CASEMGMT ---
Insurance: Continued stay review faxed to [employer] on 12/25/18. Continued stay approved. Next update due 12/29/18. auth # [id number]
[2018-12-28 17:15] LABS: Bedside Glucose 166 mg/dL (70-110)
[2018-12-28 20:21] LABS: Bedside Glucose 165 mg/dL (70-110)
[2018-12-28] MEDS: Atorvastatin Calcium 20 MG Tablet PO (21:06)
[2018-12-28] MEDS: traZODone 100 MG Tablet 150 MG PO (21:07)
--- NOTE | 2018-12-29 00:15 | NURSING ---
Patient has Butrans patch to right chest.
[2018-12-29] MEDS: Levothyroxine 112 MCG Tablet PO (06:12)
[2018-12-29] MEDS: buPROPion (XL) 150 MG TABLET.XL PO (06:12)
[2018-12-29] MEDS: Anastrozole 1 MG Tablet PO (06:12)
[2018-12-29] MEDS: Senna/Docusate Sodium 1 Tablet 2 TABLET PO ×2 (06:12→18:35)
[2018-12-29] MEDS: Furosemide 20 MG Tablet PO (06:13)
[2018-12-29] MEDS: Spironolactone 25 MG Tablet PO (06:13)
[2018-12-29] MEDS: Nystatin Powder 15gm Bottle 1 APPLIC TOPICAL ×3 (06:17→22:24)
[2018-12-29] MEDS: Lidocaine 5% Patch 1 PATCH TOPICAL (06:17)
[2018-12-29] MEDS: Menthol/Lanolin/Calamine/Znox 113 GM Tube 1 APPLIC TOPICAL ×2 (06:18→22:23)
[2018-12-29 06:20] LABS: Bedside Glucose 119 mg/dL (70-110)
[2018-12-29] MEDS: Acetaminophen 500 MG Tablet 1000 MG PO ×2 (06:21→15:11)
[2018-12-29 06:31] VITALS: BP 133/97; PULSE 101; TEMP 36.4; O2SAT 98
--- NOTE | 2018-12-29 06:35 | NURSING ---
Addendum entered by Tamara Ramirez 12/29/18 06:54: Dr. Sandoval notified. EKG ordered. Dr. Sandoval notified of results. No new orders given. Original Note: Patient is complaining of heart racing. Patient states I have been feeling nauseous the past half hour. Patient's heart rate 101 and regular. BP 133/97. T 97.6 orally. Patient [address] Sandoval to be updated.
--- NOTE | 2018-12-29 06:37 | EKG12_ITS ---
Test Reason : PALP, NAUSEA Blood Pressure : / mmHG Vent. Rate : 089 BPM Atrial Rate : 089 BPM P-R Int : 160 ms QRS Dur : 094 ms QT Int : 400 ms P-R-T Axes : 022 -23 018 degrees QTc Int : 486 ms Normal sinus rhythm Low voltage QRS Borderline ECG When compared with ECG of 10-DEC-2018 00:52, No significant change was found Confirmed by YOLETTE SEARS ([id number]), editor continuity and script YUDITH PADRON ([id number]) on 01/02/2019 1:33:25 PM Referred By: Luis E Sandoval Confirmed By:YOLETTE SEARS
[2018-12-29] MEDS: predniSONE 10 MG Tablet PO (10:13)
--- NOTE | 2018-12-29 10:35 | CASEMGMT ---
Addendum entered by Mercy Rodriguez 12/29/18 15:24: Insurance extended pt- NRD 01/01. Notified pt and SNF. Original Note: Social Work Notified pt [facility] accepted pt. Will await outcome of insurance update today. Mercy Rodriguez, TEAMCENTER CONSULTANT ORDNANCE ARTIFICER
[2018-12-29 11:00] LABS: Bedside Glucose 180 mg/dL (70-110)
[2018-12-29 16:00] VITALS: BP 133/51; PULSE 92; RESP 17; TEMP 36.6; O2SAT 95
[2018-12-29 17:01] LABS: Bedside Glucose 171 mg/dL (70-110)
[2018-12-29 21:16] LABS: Bedside Glucose 172 mg/dL (70-110)
[2018-12-29] MEDS: Atorvastatin Calcium 20 MG Tablet PO (22:26)
[2018-12-29] MEDS: traZODone 100 MG Tablet 150 MG PO (22:26)
[2018-12-30] MEDS: Acetaminophen 500 MG Tablet 1000 MG PO ×3 (02:51→16:00)
[2018-12-30 06:31] LABS: Bedside Glucose 123 mg/dL (70-110)
[2018-12-30] MEDS: Menthol/Lanolin/Calamine/Znox 113 GM Tube 1 APPLIC TOPICAL ×2 (07:07→21:25)
[2018-12-30] MEDS: Nystatin Powder 15gm Bottle 1 APPLIC TOPICAL ×3 (07:07→21:26)
[2018-12-30] MEDS: Senna/Docusate Sodium 1 Tablet 2 TABLET PO (07:08)
[2018-12-30] MEDS: Furosemide 20 MG Tablet PO (07:08)
[2018-12-30] MEDS: Levothyroxine 112 MCG Tablet PO (07:08)
[2018-12-30] MEDS: Spironolactone 25 MG Tablet PO (07:08)
[2018-12-30] MEDS: buPROPion (XL) 150 MG TABLET.XL PO (07:08)
[2018-12-30] MEDS: Anastrozole 1 MG Tablet PO (07:08)
[2018-12-30] MEDS: Lidocaine 5% Patch 1 PATCH TOPICAL (08:18)
[2018-12-30] MEDS: predniSONE 5 MG Tablet PO (08:18)
[2018-12-30 11:41] LABS: Bedside Glucose 165 mg/dL (70-110)
[2018-12-30 16:00] VITALS: BP 122/92; PULSE 98; RESP 21; TEMP 37.1; O2SAT 97
[2018-12-30 16:50] LABS: Bedside Glucose 231 mg/dL (70-110)
[2018-12-30 20:56] LABS: Bedside Glucose 204 mg/dL (70-110)
[2018-12-30] MEDS: oxyCODONE 5 MG Tablet PO (21:22)
[2018-12-30] MEDS: Atorvastatin Calcium 20 MG Tablet PO (21:24)
[2018-12-30] MEDS: traZODone 100 MG Tablet 150 MG PO (21:24)
[2018-12-31] MEDS: Polyethylene Glycol 3350 17 GM PACKET PO (04:03)
[2018-12-31] MEDS: Spironolactone 25 MG Tablet PO (04:04)
[2018-12-31] MEDS: Anastrozole 1 MG Tablet PO (04:04)
[2018-12-31] MEDS: Senna/Docusate Sodium 1 Tablet 2 TABLET PO ×2 (04:05→17:37)
[2018-12-31] MEDS: buPROPion (XL) 150 MG TABLET.XL PO (04:05)
[2018-12-31] MEDS: Levothyroxine 112 MCG Tablet PO (04:05)
[2018-12-31] MEDS: Menthol/Lanolin/Calamine/Znox 113 GM Tube 1 APPLIC TOPICAL ×2 (04:10→19:48)
[2018-12-31] MEDS: Nystatin Powder 15gm Bottle 1 APPLIC TOPICAL ×3 (04:10→19:48)
[2018-12-31] MEDS: predniSONE 10 MG Tablet PO (08:22)
[2018-12-31] MEDS: Furosemide 20 MG Tablet PO (08:22)
[2018-12-31] MEDS: Lidocaine 5% Patch 1 PATCH TOPICAL (08:23)
--- NOTE | 2018-12-31 10:06 | NURSING ---
Patient has Butrans patch to right chest.
[2018-12-31 10:30] VITALS: PULSE 97; RESP 18; O2SAT 97
[2018-12-31 11:27] LABS: Bedside Glucose 173 mg/dL (70-110)
[2018-12-31 11:27] LABS: Bedside Glucose 135 mg/dL (70-110)
[2018-12-31] MEDS: Bisacodyl 5 MG Tablet 10 MG PO (12:43)
[2018-12-31 15:33] VITALS: BP 139/91; PULSE 98; RESP 20; TEMP 36.8; O2SAT 98
--- NOTE | 2018-12-31 16:30 | NURSING ---
Addendum entered by Delmi Leon 01/01/19 11:17: spoke with nurse at Dr Tripp's office, pt was to be done with her prednisione on 12/08. Will update Dr Sandoval and see what he would like done with prednisone. Original Note: pt states that she was to follow up with Dr. Tripp, to wean prednisone dose and that this appointment was missed d/t hospitalization. told her that staff would contact Dr. Tripp to get input into when and how to taper
[2018-12-31 16:51] LABS: Bedside Glucose 205 mg/dL (70-110)
[2018-12-31] MEDS: oxyCODONE 5 MG Tablet PO (19:45)
[2018-12-31] MEDS: traZODone 100 MG Tablet 150 MG PO (19:46)
[2018-12-31] MEDS: Atorvastatin Calcium 20 MG Tablet PO (19:47)
[2018-12-31 20:46] LABS: Bedside Glucose 157 mg/dL (70-110)
[2019-01-01 05:47] LABS: International Normalized Ratio 1.7; Prothrombin Time (Protime)PT. 19.5 SECONDS (11.7-14.9)
[2019-01-01 06:10] LABS: Bedside Glucose 118 mg/dL (70-110)
[2019-01-01] MEDS: Spironolactone 25 MG Tablet PO (06:20)
[2019-01-01] MEDS: buPROPion (XL) 150 MG TABLET.XL PO (06:20)
[2019-01-01] MEDS: Levothyroxine 112 MCG Tablet PO (06:20)
[2019-01-01] MEDS: Anastrozole 1 MG Tablet PO (06:20)
[2019-01-01] MEDS: Senna/Docusate Sodium 1 Tablet 2 TABLET PO ×2 (06:21→17:38)
[2019-01-01] MEDS: Polyethylene Glycol 3350 17 GM PACKET PO (06:21)
[2019-01-01] MEDS: Menthol/Lanolin/Calamine/Znox 113 GM Tube 1 APPLIC TOPICAL ×2 (06:26→21:35)
[2019-01-01] MEDS: oxyCODONE 5 MG Tablet PO ×2 (06:32→19:39)
[2019-01-01] MEDS: Nystatin Powder 15gm Bottle 1 APPLIC TOPICAL ×3 (06:33→21:35)
[2019-01-01] MEDS: predniSONE 5 MG Tablet PO (08:32)
[2019-01-01] MEDS: Furosemide 20 MG Tablet PO (08:32)
[2019-01-01] MEDS: Lidocaine 5% Patch 1 PATCH TOPICAL (08:32)
--- NOTE | 2019-01-01 10:30 | CASEMGMT ---
Insurance: Continued stay review faxed this day. auth # [id number].
[2019-01-01 10:51] LABS: Bedside Glucose 147 mg/dL (70-110)
--- NOTE | 2019-01-01 11:21 | NURSING ---
BUTRANS PATCH INTACT TO RIGHT CHEST.
[2019-01-01 15:45] VITALS: BP 139/92; PULSE 110; RESP 20; TEMP 37; O2SAT 94
[2019-01-01 16:50] LABS: Bedside Glucose 190 mg/dL (70-110)
--- NOTE | 2019-01-01 17:44 | NURSING ---
R' NOTIFIED OF NEW COUMADIN DOSAGE. ALSO, NOTIFIED HER OF PREDNISONE BEING D/C'D. R' AGREEABLE.
--- NOTE | 2019-01-01 17:52 | NURSING ---
NEW NATO APPLIED TO LEFT CHEST. OLD ONE REMOVED FROM RIGHT CHEST, WASTED WITH ZENOBIA ESCOBAR RN. PLACED IN RX DESTROYER.
[2019-01-01 19:42] VITALS: O2SAT 98
[2019-01-01 20:36] LABS: Bedside Glucose 182 mg/dL (70-110)
[2019-01-01] MEDS: Atorvastatin Calcium 20 MG Tablet PO (21:30)
[2019-01-01] MEDS: traZODone 100 MG Tablet 150 MG PO (21:30)
--- NOTE | 2019-01-01 23:01 | NURSING ---
Butrans patch intact to Left chest.
[2019-01-02 06:36] LABS: Bedside Glucose 117 mg/dL (70-110)
[2019-01-02] MEDS: buPROPion (XL) 150 MG TABLET.XL PO (06:41)
[2019-01-02] MEDS: Senna/Docusate Sodium 1 Tablet 2 TABLET PO ×2 (06:41→17:21)
[2019-01-02] MEDS: Levothyroxine 112 MCG Tablet PO (06:41)
[2019-01-02] MEDS: Polyethylene Glycol 3350 17 GM PACKET PO (06:41)
[2019-01-02] MEDS: Anastrozole 1 MG Tablet PO (06:41)
[2019-01-02] MEDS: Spironolactone 25 MG Tablet PO (06:42)
[2019-01-02] MEDS: Nystatin Powder 15gm Bottle 1 APPLIC TOPICAL ×3 (06:46→21:08)
[2019-01-02] MEDS: Menthol/Lanolin/Calamine/Znox 113 GM Tube 1 APPLIC TOPICAL ×2 (06:47→21:07)
[2019-01-02] MEDS: oxyCODONE 5 MG Tablet PO ×2 (08:38→17:32)
[2019-01-02] MEDS: Furosemide 20 MG Tablet PO (08:40)
[2019-01-02] MEDS: Lidocaine 5% Patch 1 PATCH TOPICAL (08:40)
[2019-01-02 11:06] LABS: Bedside Glucose 158 mg/dL (70-110)
--- NOTE | 2019-01-02 11:40 | NURSING ---
Butrans patch intact to Lt chest.
[2019-01-02] MEDS: Acetaminophen 500 MG Tablet 1000 MG PO (13:46)
--- NOTE | 2019-01-02 14:35 | CASEMGMT ---
Social Work Insurance issued LCD 01/04 with DC 01/05. Spoke with patient and whom agreed pt will transfer to [facility] private pay. Scheduled w/c transportation with [employer] at 11 am. Notified [facility]. Will send DC orders. Plan: DC to [facility] 01/05 NOA Alvarez
[2019-01-02 16:00] VITALS: BP 133/89; PULSE 97; RESP 20; TEMP 36.6; O2SAT 97
[2019-01-02 16:46] LABS: Bedside Glucose 169 mg/dL (70-110)
[2019-01-02 21:06] LABS: Bedside Glucose 158 mg/dL (70-110)
[2019-01-02] MEDS: Atorvastatin Calcium 20 MG Tablet PO (21:06)
[2019-01-02] MEDS: traZODone 100 MG Tablet 150 MG PO (21:06)
--- NOTE | 2019-01-02 21:50 | PCM.DC ---
- Discharge Diagnoses Current Active Problems: Current Active and Chronic Problems (Last Reviewed 10/25/18 @ 15:56 by Alex Lama MD) Closed head injury (Acute) Diabetes mellitus (Chronic) Pulmonary embolism (Chronic) Sleep apnea (Chronic) Insomnia (Chronic) COPD (chronic obstructive pulmonary disease) (Chronic) Breast cancer (Chronic) Gait difficulty (Acute) You will use the following diet at home:: No restrictions, Regular Your food should be the consistency of: Regular Your liquids should be the consistency of: Regular/Thin Discharge Activity: Return to Normal Activity, May Shower, Use Walker Weight Bearing Status: Weight bearing as tolerated Call your doctor if you observe: Fever of 101 or Higher, Inability to urinate, Inability to have a bowel movement, Shortness of breath, Chest pain, Uncontrolled pain Allergies/Adverse Reactions: Allergies acetaminophen [From Vicodin] Adverse Reaction (Verified 12/10/18 17:06) Unknown hydrocodone bitartrate [From Vicodin] Adverse Reaction (Verified 12/10/18 17:06) Upset Stomach Medications to take at Discharge Levothyroxine [Synthroid] 112 mcg PO DAILY 01/24/14 Simvastatin [Zocor] 40 mg PO QHS 01/24/14 Anastrozole [Arimidex] 1 mg PO DAILY 03/17/15 traZODone [Desyrel] 150 mg PO QHS 05/07/16 Bupropion HCl [Bupropion Xl] 150 mg PO DAILY 04/22/18 Fluticasone Furoate [Arnuity Ellipta] 1 puff INHALATION QHS 05/04/18 Furosemide [Lasix] 20 mg PO DAILY 05/04/18 Spironolactone [Aldactone] 25 mg PO DAILY 05/10/18 Albuterol Inhaler [Ventolin Hfa] 2 puff INHALATION Q6HWA.RT PRN 08/01/18 cycloBENZAPRine HCl [Cyclobenzaprine HCl] 5 mg PO TID PRN tab 12/12/18 Nystatin Powder [Mycostatin Powder] 1 applic TOPICAL TID 12/13/18 Acetaminophen [Tylenol] 1,000 mg PO Q6H PRN PRN tab 01/02/19 Buprenorphine [Butrans 5 Mcg/Hr] 1 ea TD QWEEK #4 patch.tdwk 01/02/19 Clonazepam [Klonopin] 1 mg PO DAILY PRN PRN #14 tab 10/08/19 Ergocalciferol [Vitamin D] 50,000 unit PO Q7D cap 01/02/19 Insulin Glargine [Lantus SoloStar Pen] 10 units SUBCUT BID pen 01/02/19 Lidocaine [Lidoderm Patch] 1 patch TOPICAL DAILY@0900 patch 01/02/19 Menthol/Lanolin/Calamine/Znox [Calmoseptine Ointment] 1 applic TOPICAL 0600,2200 tube 01/02/19 Mineral Oil/Petrolatum,White [Eucerin] 1 applic TOPICAL 2200 jar 01/02/19 Oxycodone [Oxyir] 5 mg PO Q6H PRN PRN 7 Days #28 tab 01/02/19 Polyethylene Glycol 3350 [Miralax] 17 gm PO DAILY packet 01/02/19 Senna/Docusate Sodium [Senokot-S] 2 tab PO BID tab 01/02/19 Warfarin [Coumadin] 3 mg PO DAILY@1700 tab 01/02/19 The following prescriptions were given: Buprenorphine [Butrans 5 Mcg/Hr] 1 ea TD QWEEK #4 patch.tdwk Prescription Printed Clonazepam [Klonopin] 1 mg PO DAILY PRN PRN #14 tab PRN Reason: restless leg syndrome Prescription Printed Oxycodone [Oxyir] 5 mg PO Q6H PRN PRN 7 Days #28 tab PRN Reason: Pain Score 6-10/10 Prescription Printed Orders to be completed after discharge: Prothrombin Time w/INR Time Frame: 3 Days, Facility: [facility], Location: Laboratory Primary Care Physician: Ai Anguiano MD [Primary Care Provider] - Please follow up with your Primary Care Physician in: 1 week. Test Results: Test results from this visit will be discussed in further detail at your follow-up appointment, if applicable. Please Follow Up With: Benjie Tripp MD When: 2 weeks. Proposed Discharge Date: 01/05/19
--- NOTE | 2019-01-02 21:51 | PCM.DC.SUM ---
Discharge Date and Diagnosis - Problem List Patient Problems: Active and Suspected Problems (Last Reviewed 10/25/18 @ 15:56 by Alex Lama MD) Closed head injury (Acute) Gait difficulty (Acute) Date of Admission: 12/13/18 Date of Discharge: 01/05/19 - Primary Discharge Diagnosis Active and Suspected Problems (Last Reviewed 10/25/18 @ 15:56 by Alex Lama MD) Closed head injury (Acute) Gait difficulty (Acute) - Secondary Discharge Diagnosis Chronic Problems (Last Reviewed 10/25/18 @ 15:56 by Alex Lama MD) YOLY (obstructive sleep apnea) (Chronic) Hypertension (Chronic) Diabetes mellitus, type II (Chronic) Morbid obesity (Chronic) Diabetes mellitus (Chronic) Pulmonary embolism (Chronic) Sleep apnea (Chronic) Insomnia (Chronic) COPD (chronic obstructive pulmonary disease) (Chronic) Breast cancer (Chronic) Lupus anticoagulant disorder (Chronic) Thoracic aortic aneurysm (Chronic) Essential (primary) hypertension (Chronic) Hyperlipidemia (Chronic) History of pulmonary embolism (Chronic) Hospital Course and Treatment Imaging Results: 12/13/18 16:19 Diet: Calorie Controlled How many daily calories?: 1800 calorie Labs (Last 48 Hours) 01/01/19 01/01/19 01/01/19 05:15 06:04 10:45 PT 19.5 H INR 1.7 POC Glucose 118 H 147 H 01/01/19 01/01/19 01/02/19 16:39 20:25 06:02 PT INR POC Glucose 190 H 182 H 117 H 01/02/19 01/02/19 01/02/19 11:00 16:36 20:54 PT INR POC Glucose 158 H 169 H 158 H Operations: None, total hip replacement, - Procedures: None Summary of Care Provided: The patient is a 78 year old Female with below past medical history hospitalized for fall, closed head injury, inability to care for self, complicated by back pain, admitted to TCU with debility, here for rehabilitation, strengthening, prior to discharge home with spouse. [] Discharge to [facility], Skilled for PT/OT. Patient Problems: Active and Suspected Problems (Last Reviewed 10/25/18 @ 15:56 by Alex Lama MD) Closed head injury (Acute) Gait difficulty (Acute) - Physical Exam Vital Signs Temp Pulse Resp BP Pulse Ox 97.8 F 97 20 H 133/89 H 97 01/02/19 16:00 01/02/19 16:00 01/02/19 16:00 01/02/19 16:00 01/02/19 16:00 Oxygen Delivery Method Room Air Weight: 120.741 kg Body Mass Index (BMI) 46.0 Finger Stick Blood Glucose 139 Intake and Output for Last 24 Hours 12/31/18 01/01/19 01/02/19 23:59 23:59 23:59 Intake Total 1320 / 1320 720 / 720 720 / 720 Balance 1320 / 1320 720 / 720 720 / 720 POC Glucose 01/02/19 01/02/19 01/02/19 20:54 16:36 11:00 POC Glucose 158 H 169 H 158 H 01/02/19 06:02 POC Glucose 117 H Discharge Diet: No Restrictions Discharge Activity: Return to Normal Activity, May Shower, Use Walker Weight Bearing Status: Weight bearing as tolerated Call your doctor if you observe: Fever of 101 or Higher, Inability to urinate, Inability to have a bowel movement, Shortness of breath, Chest pain, Uncontrolled pain Home Medications: Medications to take at Discharge Levothyroxine [Synthroid] 112 mcg PO DAILY 01/24/14 Simvastatin [Zocor] 40 mg PO QHS 01/24/14 Anastrozole [Arimidex] 1 mg PO DAILY 03/17/15 traZODone [Desyrel] 150 mg PO QHS 05/07/16 Bupropion HCl [Bupropion Xl] 150 mg PO DAILY 04/22/18 Fluticasone Furoate [Arnuity Ellipta] 1 puff INHALATION QHS 05/04/18 Furosemide [Lasix] 20 mg PO DAILY 05/04/18 Spironolactone [Aldactone] 25 mg PO DAILY 05/10/18 Albuterol Inhaler [Ventolin Hfa] 2 puff INHALATION Q6HWA.RT PRN 08/01/18 cycloBENZAPRine HCl [Cyclobenzaprine HCl] 5 mg PO TID PRN tab 12/12/18 Nystatin Powder [Mycostatin Powder] 1 applic TOPICAL TID 12/13/18 Acetaminophen [Tylenol] 1,000 mg PO Q6H PRN PRN tab 01/02/19 Buprenorphine [Butrans 5 Mcg/Hr] 1 ea TD QWEEK #4 patch.tdwk 01/02/19 Clonazepam [Klonopin] 1 mg PO DAILY PRN PRN #14 tab 01/02/19 Ergocalciferol [Vitamin D] 50,000 unit PO Q7D cap 01/02/19 Insulin Glargine [Lantus SoloStar Pen] 10 units SUBCUT BID pen 01/02/19 Lidocaine [Lidoderm Patch] 1 patch TOPICAL DAILY@0900 patch 01/02/19 Menthol/Lanolin/Calamine/Znox [Calmoseptine Ointment] 1 applic TOPICAL 0600,2200 tube 01/02/19 Mineral Oil/Petrolatum,White [Eucerin] 1 applic TOPICAL 2200 jar 01/02/19 Oxycodone [Oxyir] 5 mg PO Q6H PRN PRN 7 Days #28 tab 01/02/19 Polyethylene Glycol 3350 [Miralax] 17 gm PO DAILY packet 01/02/19 Senna/Docusate Sodium [Senokot-S] 2 tab PO BID tab 01/02/19 Warfarin [Coumadin] 3 mg PO DAILY@1700 tab 01/02/19 Following Prescrptions Were Given to Patient: Buprenorphine [Butrans 5 Mcg/Hr] 1 ea TD QWEEK #4 patch.tdwk Prescription Printed Clonazepam [Klonopin] 1 mg PO DAILY PRN PRN #14 tab PRN Reason: restless leg syndrome Prescription Printed Oxycodone [Oxyir] 5 mg PO Q6H PRN PRN 7 Days #28 tab PRN Reason: Pain Score 6-10/10 Prescription Printed Other Amb Orders: Prothrombin Time w/INR Time Frame: 3 Days, Facility: [facility], Location: Laboratory Primary Care Physician: Ai Anguiano MD [Primary Care Provider] - Please follow up with your Primary Care Physician in: 1 week. Please Follow Up With: Benjie Tripp MD When: 2 weeks. Disposition: Nursing Home facility Minutes spent on discharge:: 35 Patient Condition:: Stable Medical Necessity - Tobacco Use Smoking Status: Never smoker Tobacco Use: Non-smoker Meaningful Use Info Meaningful Use Diagnoses (Choose all that apply): None applicable
--- NOTE | 2019-01-02 21:52 | PCM.TXEXTCAR ---
- Diet 12/13/18 16:19 Diet: Calorie Controlled How many daily calories?: 1800 calorie - Routine Orders/Code Status Suppository Type: Dulcolax 10mg Suppository Frequency: Daily PRN Routine Lab Work: [facility]s) Right Elbow Wound Type: Abrasion Under Abdominal folds Wound Type: Abrasion Under left breast Wound Type: Pressure Injury - Therapies Weight Bearing: Weight bearing as tolerated Extremity Affected:: Bilateral Lower Physical Therapy: Eval and Treat Occupational Therapy: Eval and Treat - Problem/Diagnosis (1) Closed head injury Status: Acute Current Visit: Yes (2) Diabetes mellitus Status: Chronic Current Visit: Yes (3) Pulmonary embolism Status: Chronic Current Visit: Yes (4) Sleep apnea Status: Chronic Current Visit: Yes (5) Insomnia Status: Chronic Current Visit: Yes (6) COPD (chronic obstructive pulmonary disease) Status: Chronic Current Visit: Yes (7) Breast cancer Status: Chronic Current Visit: Yes (8) Gait difficulty Status: Acute Current Visit: Yes (9) Fall Status: Acute Current Visit: No (10) Cellulitis of right elbow Status: Acute Current Visit: No (11) Debility Status: Acute Current Visit: No (12) Hypertension Status: Chronic Current Visit: No (13) Morbid obesity Status: Chronic Current Visit: No (14) Lupus anticoagulant disorder Status: Chronic Current Visit: No (15) Thoracic aortic aneurysm Status: Chronic Current Visit: No (16) Hyperlipidemia Status: Chronic Current Visit: No - Allergies/Procedures Done in Hospital Allergies/Adverse Reactions: Allergies acetaminophen [From Vicodin] Adverse Reaction (Verified 12/10/18 17:06) Unknown hydrocodone bitartrate [From Vicodin] Adverse Reaction (Verified 12/10/18 17:06) Upset Stomach - Type of Care/Length of Stay Estimated LOS: Convalescent Care Less Than 30 days Type of Care Needed: Skilled Rehab Potential: Good Prognosis: Good - Additional Orders/Day of Discharge Day of Discharge: 01/05/19 - Dietary and Speech Recommendations Dietitian Recommendations/Changes: Res would like 1 cup glucerna shake w/ meals d/t bad taste in mouth when meals taste bad instead of 1/2 cup GS w/ medpass - Follow Up Care Primary Care Physician: Ai Anguiano MD [Primary Care Provider] - Please follow up with your Primary Care Physician in: 1 week. Please Follow Up With: Benjie Tripp MD When: 2 weeks.
--- NOTE | 2019-01-02 22:19 | NURSING ---
Butrans patch intact to LT chest.
[2019-01-03] MEDS: Polyethylene Glycol 3350 17 GM PACKET PO (06:08)
[2019-01-03] MEDS: Spironolactone 25 MG Tablet PO (06:11)
[2019-01-03] MEDS: Menthol/Lanolin/Calamine/Znox 113 GM Tube 1 APPLIC TOPICAL ×2 (06:11→20:34)
[2019-01-03] MEDS: Anastrozole 1 MG Tablet PO (06:11)
[2019-01-03] MEDS: Levothyroxine 112 MCG Tablet PO (06:11)
[2019-01-03] MEDS: Senna/Docusate Sodium 1 Tablet 2 TABLET PO ×2 (06:11→18:02)
[2019-01-03] MEDS: buPROPion (XL) 150 MG TABLET.XL PO (06:11)
[2019-01-03] MEDS: Nystatin Powder 15gm Bottle 1 APPLIC TOPICAL ×3 (06:12→20:34)
[2019-01-03] MEDS: Bisacodyl 5 MG Tablet 10 MG PO (06:14)
[2019-01-03 06:25] LABS: Bedside Glucose 109 mg/dL (70-110)
[2019-01-03] MEDS: Lidocaine 5% Patch 1 PATCH TOPICAL (08:18)
[2019-01-03] MEDS: oxyCODONE 5 MG Tablet PO (08:19)
[2019-01-03] MEDS: Furosemide 20 MG Tablet PO (08:20)
[2019-01-03 11:20] LABS: Bedside Glucose 151 mg/dL (70-110)
[2019-01-03] MEDS: Acetaminophen 500 MG Tablet 1000 MG PO (13:07)
[2019-01-03 16:00] VITALS: BP 133/87; PULSE 99; RESP 18; TEMP 36.5; O2SAT 94
[2019-01-03 16:55] LABS: Bedside Glucose 175 mg/dL (70-110)
[2019-01-03] MEDS: Atorvastatin Calcium 20 MG Tablet PO (20:28)
[2019-01-03] MEDS: traZODone 100 MG Tablet 150 MG PO (20:28)
[2019-01-03 21:06] LABS: Bedside Glucose 172 mg/dL (70-110)
--- NOTE | 2019-01-04 02:47 | NURSING ---
Butrans patch intact to LT chest.
[2019-01-04 06:09] LABS: Prothrombin Time (Protime)PT. 22.4 SECONDS (11.7-14.9)
[2019-01-04] MEDS: Levothyroxine 112 MCG Tablet PO (06:11)
[2019-01-04] MEDS: Nystatin Powder 15gm Bottle 1 APPLIC TOPICAL ×3 (06:11→20:08)
[2019-01-04] MEDS: Senna/Docusate Sodium 1 Tablet 2 TABLET PO ×2 (06:11→17:05)
[2019-01-04] MEDS: Spironolactone 25 MG Tablet PO (06:11)
[2019-01-04] MEDS: Anastrozole 1 MG Tablet PO (06:11)
[2019-01-04] MEDS: buPROPion (XL) 150 MG TABLET.XL PO (06:11)
[2019-01-04] MEDS: Menthol/Lanolin/Calamine/Znox 113 GM Tube 1 APPLIC TOPICAL ×2 (06:12→20:07)
[2019-01-04] MEDS: oxyCODONE 5 MG Tablet PO ×2 (06:15→20:19)
[2019-01-04] MEDS: Polyethylene Glycol 3350 17 GM PACKET PO (06:15)
[2019-01-04 06:20] LABS: Bedside Glucose 139 mg/dL (70-110)
[2019-01-04] MEDS: Lidocaine 5% Patch 1 PATCH TOPICAL (09:11)
[2019-01-04] MEDS: Furosemide 20 MG Tablet PO (09:11)
[2019-01-04 11:31] LABS: Bedside Glucose 169 mg/dL (70-110)
[2019-01-04] MEDS: Acetaminophen 500 MG Tablet 1000 MG PO (13:11)
--- NOTE | 2019-01-04 13:12 | NURSING ---
Butran patch in place to Lt shoulder.
--- NOTE | 2019-01-04 14:53 | MDS.RN ---
Information for the IPA/MDS assessment obtained from review of the clinical record, interview of resident, staff, and direct observation of resident's care. waiting to finalize assessment per information systems instructions.
[2019-01-04 15:51] VITALS: BP 114/80; PULSE 79; RESP 21; TEMP 36.4; O2SAT 99
[2019-01-04 17:06] LABS: Bedside Glucose 164 mg/dL (70-110)
[2019-01-04] MEDS: traZODone 100 MG Tablet 150 MG PO (20:10)
[2019-01-04] MEDS: Atorvastatin Calcium 20 MG Tablet PO (20:10)
[2019-01-04 21:21] LABS: Bedside Glucose 145 mg/dL (70-110)
[2019-01-05] MEDS: Senna/Docusate Sodium 1 Tablet 2 TABLET PO (06:11)
[2019-01-05] MEDS: Levothyroxine 112 MCG Tablet PO (06:11)
[2019-01-05] MEDS: Spironolactone 25 MG Tablet PO (06:11)
[2019-01-05] MEDS: Anastrozole 1 MG Tablet PO (06:11)
[2019-01-05] MEDS: buPROPion (XL) 150 MG TABLET.XL PO (06:12)
[2019-01-05] MEDS: Nystatin Powder 15gm Bottle 1 APPLIC TOPICAL (06:14)
[2019-01-05] MEDS: Menthol/Lanolin/Calamine/Znox 113 GM Tube 1 APPLIC TOPICAL (06:14)
[2019-01-05 06:25] LABS: Bedside Glucose 140 mg/dL (70-110)
[2019-01-05] MEDS: Furosemide 20 MG Tablet PO (08:24)
[2019-01-05] MEDS: Lidocaine 5% Patch 1 PATCH TOPICAL (08:25)
[2019-01-05] MEDS: Acetaminophen 500 MG Tablet 1000 MG PO (08:27)
[2019-01-05 11:01] LABS: Bedside Glucose 177 mg/dL (70-110)
[2019-01-05 11:04] VITALS: BP 133/84; PULSE 100; RESP 18; TEMP 36.1; O2SAT 96
--- NOTE | 2019-01-10 07:54 | MDS.RN ---
DC MDS assessment completed, waiting for finalize assessment per [facility] Information Systems instructions.
== END 2019-01-05 11:10 | disposition skilled nursing facility (03) | DRG 949 ==
PROVIDERS: Admitting Provider Family Medicine Geriatric Medicine; Family Provider Internal Medicine; PCP Internal Medicine; Referring Provider Family Medicine Geriatric Medicine; Visit Provider Family Medicine Geriatric Medicine
DX: S09.8XXD Other specified injuries of head, subsequent encounter (principal); D68.62 Lupus anticoagulant syndrome; Z68.42 Body mass index [BMI] 45.0-49.9, adult; L03.113 Cellulitis of right upper limb; W19.XXXD Unspecified fall, subsequent encounter; Z23 Encounter for immunization; E78.5 Hyperlipidemia, unspecified; J44.9 Chronic obstructive pulmonary disease, unspecified; I10 Essential (primary) hypertension; E66.01 Morbid (severe) obesity due to excess calories; G47.33 Obstructive sleep apnea (adult) (pediatric); E03.9 Hypothyroidism, unspecified; G25.81 Restless legs syndrome; E11.42 Type 2 diabetes mellitus with diabetic polyneuropathy; F41.9 Anxiety disorder, unspecified; F32.9 Major depressive disorder, single episode, unspecified; M19.90 Unspecified osteoarthritis, unspecified site; B35.4 Tinea corporis; Z86.711 Personal history of pulmonary embolism
CPT/HCPCS: 36415; 80048; 82962; 85025; 85610; 93005; 94002; 97110; 97116; 97162; 97165; 97530; 97535; 97802; 90670

== ENCOUNTER → 2019-01-08 04:00 | Outpatient (REF) | payer MEDICARE, SELFPAY ==
[2018-12-13 16:09] VITALS: BMI 46.0
[2019-01-08 09:45] LABS: Prothrombin Time Fingerstick 29.4 SEC (11.9-14.4)
== END ==
LOC: OLS.ACH 04:00
PROVIDERS: Visit Provider Family Medicine
DX: Z86.711 Personal history of pulmonary embolism (principal)
CPT/HCPCS: 36416; 85610

== ENCOUNTER → 2019-01-16 05:00 | Outpatient (REF) | payer MEDICARE, SELFPAY ==
[2018-12-13 16:09] VITALS: BMI 46.0
[2019-01-16 08:31] LABS: Absolute Lymphocyte Count 0.87 X10^3/uL (0.83-4.51); Absolute Neutrophil Count 3.9 X10^3/uL (2.0-7.7); Basophil# 0.04 X10^3/uL; Basophil% 0.7 % (0-1); Eosinophil# 0.24 X10^3/uL; Eosinophils% 4.2 % (0-5); Hematocrit 36.4 % (37-47); Lymphocyte # 0.87 X10^3/ul (4.0); Lymphocyte % 15.2 % (19-41); Mean Corp Hgb Conc 30.2 g/dL (32-36); Mean Corpuscular Hgb 29.3 pg (27.0-32.0); Mean Corpuscular Volume 96.8 fL (81-99); Mean Platelet Vol. 8.8 fl (6.2-12.0); Monocyte% 10.5 % (0-10); NRBC Flagged by Analyzer 0 % (0-5); Neutrophil # 3.88 X10^3/uL (2.7-7.7); Neutrophil % 67.8 % (47-70); Platelet Count 244 K/mm3 (150-450); RBC Distribution Width CV 15.8 % (11.6-14.6); Red Blood Count 3.76 M/mm3 (4.2-5.4); White Blood Count 5.7 K/mm3 (4.4-11.0)
[2019-01-16 08:41] LABS: Anion Gap 6 (5-15); BUN 15 mg/dL (7-18); BUN/Creat Ratio 12.2 RATIO (10-20); Calcium,Total 8.7 mg/dL (8.5-10.1); Chloride 106 mmol/L (98-107); Creatinine, Serum 1.23 mg/dL (0.55-1.02); EST Glomerular Filtration Rate 45 mL/min (>60); Est Glom Filt Rate - Afr Amer 55 mL/min (>60); Glucose 117 mg/dL (74-106); Potassium 4.3 mmol/L (3.5-5.1); Sodium Level 142 mmol/L (136-145)
[2019-01-16 08:46] LABS: International Normalized Ratio 2.9; Prothrombin Time (Protime)PT. 30.4 SECONDS (11.7-14.9)
== END ==
LOC: OLS.ACH 05:00
PROVIDERS: Visit Provider Family Medicine
DX: N18.3 Chronic kidney disease, stage 3 (moderate) (principal); D68.62 Lupus anticoagulant syndrome
CPT/HCPCS: 36415; 80048; 85025; 85610

== ENCOUNTER → 2019-01-26 05:00 | Outpatient (REF) | payer MEDICARE, SELFPAY ==
[2018-12-13 16:09] VITALS: BMI 46.0
[2019-01-26 08:52] LABS: Hematocrit 39.3 % (37-47); Mean Corp Hgb Conc 30.5 g/dL (32-36); Mean Corpuscular Hgb 29.2 pg (27.0-32.0); Mean Corpuscular Volume 95.6 fL (81-99); Mean Platelet Vol. 9.2 fl (6.2-12.0); Platelet Count 281 K/mm3 (150-450); RBC Distribution Width CV 15.1 % (11.6-14.6); RBC Distribution Width SD 53.4 fl (35.1-43.9); Red Blood Count 4.11 M/mm3 (4.2-5.4)
[2019-01-26 09:00] LABS: ALB/GLOB Ratio 0.8 RATIO (0.9-2.4); AST(SGOT) 22 U/L (15-37); Alanine Aminotransfer ALT/SGPT 22 U/L (13-56); Alkaline Phosphatase 129 U/L (45-117); Anion Gap 8 (5-15); BUN 19 mg/dL (7-18); BUN/Creat Ratio 13.1 RATIO (10-20); Calcium,Total 9.3 mg/dL (8.5-10.1); Chloride 101 mmol/L (98-107); Creatinine, Serum 1.45 mg/dL (0.55-1.02); EST Glomerular Filtration Rate 37 mL/min (>60); Est Glom Filt Rate - Afr Amer 45 mL/min (>60); Glucose 112 mg/dL (74-106); Potassium 4.2 mmol/L (3.5-5.1); Sodium Level 140 mmol/L (136-145)
== END ==
LOC: OLS.ACH 05:00
PROVIDERS: Visit Provider Family Medicine
DX: D68.62 Lupus anticoagulant syndrome (principal); N18.3 Chronic kidney disease, stage 3 (moderate)
CPT/HCPCS: 36415; 80053; 85027

== ENCOUNTER → 2019-01-30 05:00 | Outpatient (REF) | payer MEDICARE, SELFPAY ==
[2018-12-13 16:09] VITALS: BMI 46.0
[2019-01-30 08:20] LABS: Hematocrit 39.1 % (37-47); Hemoglobin 11.7 g/dL (12.0-15.0); Mean Corp Hgb Conc 29.9 g/dL (32-36); Mean Corpuscular Hgb 28.6 pg (27.0-32.0); Mean Corpuscular Volume 95.6 fL (81-99); Mean Platelet Vol. 9.2 fl (6.2-12.0); Platelet Count 252 K/mm3 (150-450); RBC Distribution Width CV 15.1 % (11.6-14.6); RBC Distribution Width SD 52.4 fl (35.1-43.9); Red Blood Count 4.09 M/mm3 (4.2-5.4); White Blood Count 7.5 K/mm3 (4.4-11.0)
== END ==
LOC: OLS.ACH 05:00
PROVIDERS: Visit Provider Family Medicine
DX: D68.62 Lupus anticoagulant syndrome (principal)
CPT/HCPCS: 36415; 85027

== ENCOUNTER → 2019-02-01 05:00 | Outpatient (REF) | payer MEDICARE, SELFPAY ==
[2018-12-13 16:09] VITALS: BMI 46.0
[2019-02-01 08:28] LABS: Anion Gap 8 (5-15); BUN 30 mg/dL (7-18); BUN/Creat Ratio 26.5 RATIO (10-20); Calcium,Total 8.8 mg/dL (8.5-10.1); Chloride 106 mmol/L (98-107); Creatinine, Serum 1.13 mg/dL (0.55-1.02); EST Glomerular Filtration Rate 50 mL/min (>60); Est Glom Filt Rate - Afr Amer 60 mL/min (>60); Glucose 140 mg/dL (74-106); Potassium 4.6 mmol/L (3.5-5.1); Sodium Level 139 mmol/L (136-145)
== END ==
LOC: OLS.ACH 05:00
PROVIDERS: Visit Provider Family Medicine
DX: R60.9 Edema, unspecified (principal)
CPT/HCPCS: 36415; 80048

== ENCOUNTER → 2019-02-16 05:00 | Outpatient (REF) | payer MEDICARE, SELFPAY ==
[2018-12-13 16:09] VITALS: BMI 46.0
[2019-02-16 08:15] LABS: Prothrombin Time Fingerstick 28.2 SEC (11.9-14.4)
== END ==
LOC: OLS.ACH 05:00
PROVIDERS: Visit Provider Family Medicine
DX: Z79.01 Long term (current) use of anticoagulants (principal); Z86.711 Personal history of pulmonary embolism
CPT/HCPCS: 36416; 85610

== ENCOUNTER 2019-07-07 12:36 | Inpatient (IN) | payer MEDICARE, SELFPAY ==
[2018-12-13 16:09] VITALS: BMI 46.0
[2019-07-07 12:36] VITALS: BP 97/76; PULSE 99; RESP 16; TEMP 36.3; O2SAT 97; BMI 40.3
--- NOTE | 2019-07-07 12:44 | VDLE_ITS ---
Reason For Study: Swelling RIGHT LEFT GSV is normal. GSV is normal. CFV is compressible, spontaneous, phasic, CFV is compressible, spontaneous, phasic, competent and demonstrates normal competent, and demonstrates normal augmentation. augmentation. FV is compressible, spontaneous, phasic, FV is compressible, spontaneous, phasic, competent and demonstrates normal competent and demonstrates normal augmentation. augmentation. FV mid-distal only visualized with color. Pt FV distal only visualized with color. Pt unable to tolerate compression. unable to tolerate compression. POP V is compressible, spontaneous, phasic, POP V is compressible, spontaneous, phasic, competent and demonstrates normal competent and demonstrates normal augmentation. augmentation. T/P Trunk is compressible. T/P Trunk is compressible. PTV is compressible. PTV is compressible. RT PerV is compressible. LT PerV is compressible. Procedure Exam performed portable in ED. A preliminary report was called and/or faxed to [facility]. Interpretation Summary No evidence for acute deep venous thrombosis bilateral lower extremities with patent and compressible bilateral great saphenous veins. See limitations of visualization of the femoral veins bilaterally Ordering Physician: Shivani Cool Referring Physician: Ai Anguiano M.D. Performed By: Leeanne Paul RVT
--- NOTE | 2019-07-07 13:01 | ED.DCSUM_ITS ---
- ER Visit Summary Date of Service: 07/07/19 Chief Complaint: [Leg swelling] History of Present Illness: The patient is a 79 F [presents to the emergency department complaint of leg swelling for the last 3 days. Patient also complains of some mild discomfort around her left ankle. She was seen by nurse practitioner working with Dr. Anguiano and referred to the ER to rule out DVT. Patient denies any fevers. Patient currently on Coumadin for history of PE. She denies any history of CHF or renal failure. Patient denies any recent trauma to her leg. She is a diabetic. She denies any chest pain or shortness of breath.] Physical Examination: HEENT-PERRLA, EOMI. Cranial nerves II through XII grossly intact. TMs clear. Mucous membranes moist. No adenopathy. Cardiovascular-regular rate and rhythm without murmur or ectopy Lungs-clear to auscultation, chest wall stable without crepitus or subcu emphysema Abdomen-normoactive bowel sounds, soft, nontender, no rebound or rigidity, no peritoneal signs. Extremities-intact ?4, normal range of motion, normal pulses, atraumatic. Patient has bilateral lower extremity edema from the knee to the feet. Left is greater than right. Patient does have erythema and cellulitic changes noted to the left lower extremity. She has normal pulses dorsal pedal as well as posterior tibial. Normal popliteal and femoral pulses. No ropes or cords palpated.] Test Results: [Venous Doppler of both lower extremities obtained was negative for DVT. CBC with it showing a 9.3, hemoglobin 13. Chemistries unremarkable. BUN 23 and creatinine 1.39. INR was 3.7. BNP was 14.] Emergency Department Course and Treatment: [Patient was started on Unasyn 3 g IV] Treatment Plan: [Admit] Disposition: [Admit] Impression: [Cellulitis left lower extremity Edema bilateral lower extremities] This note was generated with [employer] dictation software. It may contain incorrect words, spelling, and punctuation that were not noted in review of the chart prior to signing ED Disposition - Plan for ED Patient: Referrals: Ai Anguiano MD [Primary Care Provider] -
[2019-07-07 13:30] LABS: Absolute Lymphocyte Count 0.65 X10^3/uL (0.83-4.51); Absolute Neutrophil Count 7.2 X10^3/uL (2.0-7.7); Basophil# 0.03 X10^3/uL; Basophil% 0.3 % (0-1); Eosinophil# 0.14 X10^3/uL; Eosinophils% 1.5 % (0-5); Hematocrit 41.6 % (37-47); Hemoglobin 12.9 g/dL (12.0-15.0); Lymphocyte # 0.65 X10^3/ul (4.0); Mean Corpuscular Hgb 28.7 pg (27.0-32.0); Mean Corpuscular Volume 92.4 fL (81-99); Monocyte% 12.8 % (0-10); NRBC Flagged by Analyzer 0 % (0-5); Neutrophil # 7.24 X10^3/uL (2.7-7.7); Neutrophil % 77.5 % (47-70); Platelet Count 213 K/mm3 (150-450); RBC Distribution Width CV 14.3 % (11.6-14.6); RBC Distribution Width SD 49.1 fl (35.1-43.9); White Blood Count 9.3 K/mm3 (4.4-11.0)
[2019-07-07 13:40] LABS: Prothrombin Time (Protime)PT. 36.1 SECONDS (11.7-14.9)
[2019-07-07 13:45] LABS: BNP,B-Type NATRIURETIC PEPTIDE 14.2 pg/mL (0-100)
[2019-07-07 13:46] LABS: International Normalized Ratio 3.7
[2019-07-07 13:48] LABS: Anion Gap 5 (5-15); BUN 23 mg/dL (7-18); BUN/Creat Ratio 16.5 RATIO (10-20); Calcium,Total 9.3 mg/dL (8.5-10.1); Chloride 107 mmol/L (98-107); Creatinine, Serum 1.39 mg/dL (0.55-1.02); EST Glomerular Filtration Rate 39 mL/min (>60); Est Glom Filt Rate - Afr Amer 47 mL/min (>60); Estimated Creatinine Clearance 31.73 ml/min; Glucose 153 mg/dL (74-106); Potassium 4.4 mmol/L (3.5-5.1); Sodium Level 138 mmol/L (136-145)
[2019-07-07 13:53] LABS: Lactic Acid 1.8 mmol/L (0.4-1.9)
--- NOTE | 2019-07-07 14:02 | NURSING ---
DR SONIDO REED
[2019-07-07 14:04] LABS: Color, Urine Yellow (Yellow); Glucose, Dipstick Normal (Normal); Ketone-Dipstick 5 mg/dl (Negative); Leukocyte Esterase-Dipstick 500 /ul (Negative); Nitrite-Dipstick Negative (Negative); Occult Blood-Urine 25 /ul (Negative); Protein-Dipstick 30 mg/dl (Negative); Urine Bilirubin Dipstick Negative (Negative); Urine Clarity Sl. Cloudy (Clear); Urine Urobilinogen Normal (Normal)
--- NOTE | 2019-07-07 14:05 | NURSING ---
MED SURG SONIDO CELLULITIS LEFT LEG, EDEMA
[2019-07-07 14:15] LABS: Red Blood Cells-Urine 0-5 SEEN /hpf (0-5); Squamous Epithelial Cells - UA 0-5 SEEN /hpf (5-10); White Blood Cells 5-10 SEEN /hpf (0-5)
[2019-07-07 14:16] LABS: Bacteria 1+ /hpf (None Seen); Mucous, Urine RARE /hpf (<or=2+)
--- NOTE | 2019-07-07 14:26 | HP.PCM_ITS ---
Problem List (1) Cellulitis of left lower extremity Status: Acute (2) Fall Status: Acute (3) Cellulitis of right elbow Status: Inactive (4) Debility Status: Acute (5) YOLY (obstructive sleep apnea) Status: Chronic (6) Hypertension Status: Chronic Qualifiers: (7) Diabetes mellitus, type II Status: Chronic Qualifiers: (8) Morbid obesity Status: Chronic (9) Closed head injury Status: Acute (10) Diabetes mellitus Status: Chronic (11) Pulmonary embolism Status: Chronic (12) Sleep apnea Status: Chronic (13) Insomnia Status: Chronic (14) COPD (chronic obstructive pulmonary disease) Status: Chronic (15) Breast cancer Status: Chronic (16) Gait difficulty Status: Acute (17) Lupus anticoagulant disorder Status: Chronic (18) Thoracic aortic aneurysm Status: Chronic Qualifiers: (19) Essential (primary) hypertension Status: Chronic (20) Hyperlipidemia Status: Chronic Qualifiers: (21) History of pulmonary embolism Status: Chronic History of Present Illness Date of Admission: 07/07/19 Chief Complaint: Left lower extremity swelling for 3 days The patient is a 79 year old F with multiple comorbidities as listed above came to ER with bilateral leg swelling, left more than right for last 3 days. Patient felt pain, redness and swelling for last 3 days. Denies any fever or chills. The patient was sent to ER from Dr. Anguiano office to rule out DVT. Venous Doppler in ER negative. Patient has history of PE and is on Coumadin, INR supratherapeutic. Patient has history of left ankle comminuted fracture in the past and required multiple 6 surgeries in left ankle and has deformity. Currently there is no open ulcer or drainage. In ED, no fever was noted. Hemodynamically stable. [] Past Medical History Past Medical History (Chronic Problems): Chronic Problems (Last Reviewed 10/25/18 @ 15:[address] Alex Lama MD) YOLY (obstructive sleep apnea) (Chronic) Hypertension (Chronic) Diabetes mellitus, type II (Chronic) Morbid obesity (Chronic) Diabetes mellitus (Chronic) Pulmonary embolism (Chronic) Sleep apnea (Chronic) Insomnia (Chronic) COPD (chronic obstructive pulmonary disease) (Chronic) Breast cancer (Chronic) Lupus anticoagulant disorder (Chronic) Thoracic aortic aneurysm (Chronic) Essential (primary) hypertension (Chronic) Hyperlipidemia (Chronic) History of pulmonary embolism (Chronic) Medical History: Medical History (Last Reviewed 10/25/18 @ 15:[address] Alex Lama MD) Lupus anticoagulant disorder (Chronic) D68.62 Thoracic aortic aneurysm (Chronic) I71.2 Essential (primary) hypertension (Chronic) I10 Hyperlipidemia (Chronic) E78.5 History of pulmonary embolism (Chronic) Z86.711 Anxiety F41.9 Cellulitis of right lower extremity L03.115 Chronic obstructive pulmonary disease J44.9 Depression F32.9 Diabetes mellitus E11.9 Diabetes mellitus type 2 in obese E11.9, E66.9 Hypothyroidism E03.9 Insomnia G47.00 Left ureteral stone N20.1 Obesity E66.9 Obstructive sleep apnea G47.33 Osteoarthritis M19.90 Restless leg syndrome Traumatic hematoma of right foot S90.31XA Type 2 diabetes mellitus with diabetic polyneuropathy E11.42 Wound of right foot S91.301A Breast cancer, left breast C50.912 Hypercoagulable state (Inactive) D68.59 Allergies acetaminophen [From Vicodin] Adverse Reaction (Verified 07/07/19 12:38) Unknown hydrocodone bitartrate [From Vicodin] Adverse Reaction (Verified 07/07/19 12:38) Upset Stomach Home Medications: Ambulatory Orders Medication Instructions Recorded Levothyroxine [Synthroid] 112 mcg PO DAILY 01/24/14 Simvastatin [Zocor] 40 mg PO QHS 01/24/14 Anastrozole [Arimidex] 1 mg PO DAILY 03/17/15 traZODone [Desyrel] 150 mg PO QHS 05/07/16 Bupropion HCl [Bupropion Xl] 150 mg PO DAILY 04/22/18 Furosemide [Lasix] 20 mg PO DAILY 05/04/18 Spironolactone [Aldactone] 25 mg PO DAILY 05/10/18 Albuterol Inhaler [Ventolin Hfa] 2 puff INHALATION Q6HWA.RT PRN 08/01/18 Nystatin Powder [Mycostatin Powder] 1 applic TOPICAL TID 12/13/18 Acetaminophen [Tylenol] 1,000 mg PO Q6H PRN PRN tab 01/02/19 Clonazepam [Klonopin] 1 mg PO DAILY PRN PRN #14 tab 01/02/19 Ergocalciferol [Vitamin D] 50,000 unit PO Q7D cap 01/02/19 Polyethylene Glycol 3350 [Miralax] 17 gm PO DAILY packet 01/02/19 Senna/Docusate Sodium [Senokot-S] 2 tab PO BID tab 01/02/19 Warfarin [Coumadin] 3 mg PO DAILY@1700 tab 01/02/19 Fluticasone/Vilanterol [Breo 1 ea IH DAILY 07/07/19 Ellipta 200-25 Mcg INH] Oxybutynin Chloride [Oxybutynin 10 mg PO DAILY 07/07/19 Chloride ER] Potassium Chloride [K-Dur] 10 meq PO DAILY 07/07/19 Surgical History: Surgical History (Last Reviewed 10/25/18 @ 15:[address] Alex Lama MD) History of open reduction and internal fixation (ORIF) procedure Z98.890 LLE History of left hip replacement Z96.642 History of lumpectomy Z98.890 History of right hip replacement Z96.641 History of total left knee replacement Z96.652 Surgical History: cholecystectomy, total hip arthroplasty - Bilateral., total knee arthroplasty - Bilateral., tonsillectomy, - - ORIF right ankle fracture, Tubal ligation, breast lumpectomy, left lower extremity ORIF. 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 Complain of mild chronic cough after she wakes up. Denies: Cough, Shortness of breath at rest, Sputum production Gastrointestinal: Denies: Abdominal Pain, Nausea, Vomiting Genitourinary: Denies: Dysuria, Frequency, Nocturia Musculoskeletal: Reports: Joint Pain, Joint stiffness Skin: Denies: Rash, Wounds Neurological: Reports: Balance problems, Incoordination. Denies: Focal weakness, Numbness, Tingling Psychiatric: Denies: Anxiety, Depression, Homicidal Ideations, Suicidal Ideations Hematologic/ Lymphatic: Denies: Easy Bruising, Easy Bleeding VTE Information - Inpt Only VTE Present on Admission: No VTE Mechan Device Prophylaxis: None VTE Pharm Prophylaxis ordered?: Yes Patient Problems: Active and Suspected Problems (Last Reviewed 10/25/18 @ 15:[address] lAex Lama MD) Cellulitis of left lower extremity (Acute) - Physical Exam Vitals/I&O's: Vital Signs Temp Pulse Resp BP Pulse Ox 97.3 F L 99 16 97/76 97 07/07/19 12:36 07/07/19 12:36 07/07/19 12:36 07/07/19 12:36 07/07/19 12:36 Oxygen Delivery Method Room Air Weight: 250 lb Body Mass Index (BMI) 40.3 Finger Stick Blood Glucose 139 General: Alert, Oriented x3, Cooperative HEENT: Atraumatic, PERRLA, EOMI, Normocephalic Oral: Dry Mucosa, - - Oropharyngeal structures are crowded Neck: Supple, No JVD, Negative Carotid Bruits Lungs: Clear to auscultation, No rhonchi, No wheeze, No rales, Diminished - Air entry diminished bilateral lung bases Cardiovascular: Regular rate, Regular Rhythm, Normal S1, Normal S2, No murmurs Abdomen: Bowel Sounds Present, Soft, Non Tender, Non-Distended Extremities: Capillary Refill Less than 3 Seconds, Edema, - - Left leg is more swollen, edematous than right leg. Skin: No breakdown, Rash Present - Erythematous rash present on left leg below knee level. Tenderness, induration present. Musculoskeletal: No Tenderness to Palpation of Joints or Extremities Neurological: Cranial nerves II-XII grossly intact Psych/Mental Status: Normal Affect, Appropriate Laboratory Results 07/07/19 13:15: WBC 9.3, RBC 4.50, Hgb 12.9, Hct 41.6, MCV 92.4, MCH 28.7, MCHC 31.0 L, RDW Std Deviation 49.1 H, RDW Coeff of Mona 14.3, Plt Count 213, MPV 9.0, Immature Gran % (Auto) 0.900, Neut % (Auto) 77.5 H, Lymph % (Auto) 7.0 L, Becker % (Auto) 12.8 H, Eos % (Auto) 1.5, Baso % (Auto) 0.3, Absolute Neuts (auto) 7.2, Absolute Lymphs (auto) 0.65 L, Nucleated RBC % 0 07/07/19 13:15: Sodium 138, Potassium 4.4, Chloride 107, Carbon Dioxide 26.0, Anion Gap 5, BUN 23 H, Creatinine 1.39 H, Estim Creat Clear Calc 31.73, Est GFR (MDRD) Af Amer 47 L, Est GFR (MDRD) Non-Af 39 L, BUN/Creatinine Ratio 16.5, Glucose 153 H, Calcium 9.3 07/07/19 13:15: Lactic Acid 1.8 07/07/19 13:15: B-Natriuretic Peptide 14.2 07/07/19 13:15: PT 36.1 H, INR 3.7 H* 07/07/19 13:56: Urine Color Yellow, Urine Clarity Sl. Cloudy, Urine pH 5.0, Ur Specific [place] 1.020, Urine Protein 30 H, Urine Glucose (UA) Normal, Urine Ketones 5 H, Urine Occult Blood 25 H, Urine Nitrite Negative, Urine Bilirubin Negative, Urine Urobilinogen Normal, Ur Leukocyte Esterase 500 H, Urine RBC 0-5 SEEN, Urine WBC 5-10 SEEN, Ur Squamous Epith Cells 0-5 SEEN, Urine Bacteria 1+, Urine Mucus RARE Assessment/Plan All Active Problems (Last Reviewed 10/25/18 @ 15:[address] Alex Lama MD) Fall (Acute) Debility (Acute) Closed head injury (Acute) Gait difficulty (Acute) Cellulitis of left lower extremity (Acute) This is a 79-year-old female with multiple comorbidities admitted with left lower leg cellulitis. 1. Bilateral lower extremity edema, left worse than right with left lower leg cellulitis: Patient is being admitted on MedSurg. Started on IV Unasyn in ER and will continue it. Blood cultures x2 sent from ER. UA done in ER shows 1+ bacteria with 5-10 WBC cells. Patient does not have acute lower urinary tract symptoms therefore possible asymptomatic bacteriuria. Urine culture not indicated. 2. Diabetes mellitus type 2: Accu-Chek before meals and at bedtime and cover with blood sliding scale. Patient on Lantus 10 units of units twice daily and continued. 3. Chronic bilateral ankle deformity and patient uses a scooter for ambulation with chronic back pain: PT and OT ordered. On pain medication 4. Hypertension and obstructive sleep apnea on BiPAP: BiPAP ordered. Patient denies history of COPD but is on Breo Ellipta and follows Dr. Tripp 5. Lupus anticoagulant disorder with pulmonary embolism on Coumadin: INR supratherapeutic. Monitor INR daily. Coumadin held. 6. Breast cancer on anastrozole: Anastrozole continued 7. Morbid obesity, thoracic aortic aneurysm, dyslipidemia and morbid obesity: Home medication reconciliation done. DVT prophylaxis: Already on Coumadin as mentioned above. Living will/advanced directive/end of life care: Patient has living will or advanced directive. After discussion of procedures involved with full code, DNR CC arrest and DNR CC, the patient opted for DNR-CC Arrest Patient does not want artificial life support including intubation, tube feed, ventilator and/chest compression, central venous catheter, vasopressor and DC shock if needed DNR CC arrest. Total time spent in [id number] encounter in discussion of advanced directive 16 minutes. Laboratory Results 07/07/19 13:15: WBC 9.3, RBC 4.50, Hgb 12.9, Hct 41.6, MCV 92.4, MCH 28.7, MCHC 31.0 L, RDW Std Deviation 49.1 H, RDW Coeff of Mona 14.3, Plt Count 213, MPV 9.0, Immature Gran % (Auto) 0.900, Neut % (Auto) 77.5 H, Lymph % (Auto) 7.0 L, Becker % (Auto) 12.8 H, Eos % (Auto) 1.5, Baso % (Auto) 0.3, Absolute Neuts (auto) 7.2, Absolute Lymphs (auto) 0.65 L, Nucleated RBC % 0 07/07/19 13:15: Sodium 138, Potassium 4.4, Chloride 107, Carbon Dioxide 26.0, Anion Gap 5, BUN 23 H, Creatinine 1.39 H, Estim Creat Clear Calc 31.73, Est GFR (MDRD) Af Amer 47 L, Est GFR (MDRD) Non-Af 39 L, BUN/Creatinine Ratio 16.5, Glucose 153 H, Calcium 9.3 07/07/19 13:15: Lactic Acid 1.8 07/07/19 13:15: B-Natriuretic Peptide 14.2 07/07/19 13:15: PT 36.1 H, INR 3.7 H* 07/07/19 13:56: Urine Color Yellow, Urine Clarity Sl. Cloudy, Urine pH 5.0, Ur Specific [place] 1.020, Urine Protein 30 H, Urine Glucose (UA) Normal, Urine Ketones 5 H, Urine Occult Blood 25 H, Urine Nitrite Negative, Urine Bilirubin Negative, Urine Urobilinogen Normal, Ur Leukocyte Esterase 500 H, Urine RBC 0-5 SEEN, Urine WBC 5-10 SEEN, Ur Squamous Epith Cells 0-5 SEEN, Urine Bacteria 1+, Urine Mucus RARE Inpatient E&M: 39435 Init Hosp L3 Procedures: 24766 Advncd Care Plan 30 Min
[2019-07-07 14:27] VITALS: BP 125/72; PULSE 86; RESP 18; TEMP 36.7; O2SAT 97
[2019-07-07 15:28] VITALS: BMI 42.0
[2019-07-07 15:31] VITALS: BMI 42.0
[2019-07-07 16:08] VITALS: BP 119/70; PULSE 88; RESP 18; TEMP 36.5; O2SAT 99
[2019-07-07 16:46] LABS: Bedside Glucose 111 mg/dL (70-110)
[2019-07-07] MEDS: 0.9% Normal Saline 1,000 ML 30 ML IV (18:08)
[2019-07-07] MEDS: 0.9% Saline Lock 10 ML Syringe IV (18:08)
[2019-07-07 19:57] VITALS: PULSE 88; RESP 20
[2019-07-07] MEDS: Budesonide Respules 0.5 MG/2 ML AMPUL.NEB. INHALATION (19:57)
[2019-07-07] MEDS: Albuterol 2.5 MG/3 ML VIAL.NEB. INHALATION (19:57)
[2019-07-07 23:08] VITALS: BP 113/56; PULSE 88; RESP 20; TEMP 36.9; O2SAT 96
[2019-07-07] MEDS: Glucerna Shake 120 ML LIQUID PO (23:15)
[2019-07-07] MEDS: traZODone 50 MG Tablet 150 MG PO (23:18)
[2019-07-07] MEDS: Atorvastatin Calcium 20 MG Tablet PO (23:18)
[2019-07-07] MEDS: clonazePAM 1 MG Tablet PO (23:22)
[2019-07-07] MEDS: Nystatin Powder 15gm Bottle 1 APPLIC TOPICAL (23:28)
[2019-07-08 06:15] LABS: Absolute Lymphocyte Count 0.88 X10^3/uL (0.83-4.51); Absolute Neutrophil Count 4.8 X10^3/uL (2.0-7.7); Basophil# 0.04 X10^3/uL; Basophil% 0.6 % (0-1); Eosinophil# 0.25 X10^3/uL; Eosinophils% 3.5 % (0-5); Hemoglobin 11.2 g/dL (12.0-15.0); Lymphocyte # 0.88 X10^3/ul (4.0); Lymphocyte % 12.4 % (19-41); Mean Corp Hgb Conc 30.3 g/dL (32-36); Mean Corpuscular Hgb 28.4 pg (27.0-32.0); Mean Corpuscular Volume 93.9 fL (81-99); Mean Platelet Vol. 9.5 fl (6.2-12.0); Monocyte# 1.07 X10^3/uL; Monocyte% 15.1 % (0-10); NRBC Flagged by Analyzer 0 % (0-5); Neutrophil # 4.75 X10^3/uL (2.7-7.7); Neutrophil % 67.3 % (47-70); Platelet Count 202 K/mm3 (150-450); RBC Distribution Width CV 14.3 % (11.6-14.6); RBC Distribution Width SD 48.8 fl (35.1-43.9); Red Blood Count 3.94 M/mm3 (4.2-5.4); White Blood Count 7.1 K/mm3 (4.4-11.0)
[2019-07-08 06:18] VITALS: BP 117/70; PULSE 81; RESP 18; TEMP 36.4; O2SAT 97
[2019-07-08] MEDS: Levothyroxine 112 MCG Tablet PO (06:26)
[2019-07-08 06:30] LABS: Anion Gap 7 (5-15); BUN 20 mg/dL (7-18); BUN/Creat Ratio 17.1 RATIO (10-20); Calcium,Total 8.7 mg/dL (8.5-10.1); Chloride 110 mmol/L (98-107); Creatinine, Serum 1.17 mg/dL (0.55-1.02); EST Glomerular Filtration Rate 48 mL/min (>60); Est Glom Filt Rate - Afr Amer 58 mL/min (>60); Estimated Creatinine Clearance 36.23 ml/min; Glucose 112 mg/dL (74-106); Potassium 4.6 mmol/L (3.5-5.1); Sodium Level 139 mmol/L (136-145)
[2019-07-08 06:36] LABS: Bedside Glucose 113 mg/dL (70-110)
[2019-07-08 06:46] LABS: Bedside Glucose 131 mg/dL (70-110)
[2019-07-08 07:15] VITALS: PULSE 86; RESP 18; O2SAT 93
[2019-07-08] MEDS: Budesonide Respules 0.5 MG/2 ML AMPUL.NEB. INHALATION (07:15)
[2019-07-08] MEDS: Albuterol 2.5 MG/3 ML VIAL.NEB. INHALATION (07:15)
[2019-07-08 07:50] VITALS: PULSE 90
[2019-07-08] MEDS: Glucerna Shake 120 ML LIQUID PO ×2 (08:04→11:14)
[2019-07-08] MEDS: Polyethylene Glycol 3350 17 GM PACKET PO (08:05)
[2019-07-08] MEDS: buPROPion (XL) 150 MG TABLET.XL PO (08:05)
[2019-07-08] MEDS: Furosemide 20 MG Tablet PO (08:05)
[2019-07-08] MEDS: Senna/Docusate Sodium 1 Tablet 2 TABLET PO (08:05)
[2019-07-08] MEDS: Tolterodine Tartrate 2 MG CAP.SA PO (08:07)
[2019-07-08] MEDS: Spironolactone 25 MG Tablet PO (08:10)
--- NOTE | 2019-07-08 10:39 | DCINST_ITS ---
- Discharge Diagnoses Current Active Problems: Current Active and Chronic Problems (Last Reviewed 10/25/18 @ 15:[address] Alex Lama MD) Cellulitis of left lower extremity (Acute) You will use the following diet at home:: Calorie/Carbohydrate Controlled (specify 1200, 1400, etc), Cardiac Call your doctor if you observe: Fever of 101 or Higher, Change in Color, Inability to urinate, Inability to have a bowel movement, Using more than one pad per hour, Shortness of breath, Fainting spells, Swelling in the ankles, Chest pain, Increased palpitations (irregular heartbeat), Calf discomfort, Uncontrolled pain Allergies/Adverse Reactions: Allergies acetaminophen [From Vicodin] Adverse Reaction (Verified 07/07/19 12:38) Unknown hydrocodone bitartrate [From Vicodin] Adverse Reaction (Verified 07/07/19 12:38) Upset Stomach Medications to take at Discharge Levothyroxine [Synthroid] 112 mcg PO DAILY 01/24/14 Simvastatin [Zocor] 40 mg PO QHS 01/24/14 Anastrozole [Arimidex] 1 mg PO DAILY 03/17/15 traZODone [Desyrel] 150 mg PO QHS 05/07/16 Bupropion HCl [Bupropion Xl] 150 mg PO DAILY 04/22/18 Furosemide [Lasix] 20 mg PO DAILY 05/04/18 Spironolactone [Aldactone] 25 mg PO DAILY 05/10/18 Albuterol Inhaler [Ventolin Hfa] 2 puff INHALATION Q6HWA.RT PRN 08/01/18 Nystatin Powder [Mycostatin Powder] 1 applic TOPICAL TID 12/13/18 Acetaminophen [Tylenol] 1,000 mg PO Q6H PRN PRN tab 01/02/19 Clonazepam [Klonopin] 1 mg PO DAILY PRN PRN #14 tab 01/02/19 Ergocalciferol [Vitamin D] 50,000 unit PO Q7D cap 01/02/19 Polyethylene Glycol 3350 [Miralax] 17 gm PO DAILY packet 01/02/19 Senna/Docusate Sodium [Senokot-S] 2 tab PO BID tab 01/02/19 Fluticasone/Vilanterol [Breo Ellipta 200-25 Mcg INH] 1 ea IH DAILY 07/07/19 Oxybutynin Chloride [Oxybutynin Chloride ER] 10 mg PO DAILY 07/07/19 Potassium Chloride [K-Dur] 10 meq PO DAILY 07/07/19 Warfarin [Coumadin] 1.5 mg PO MOWEFR 07/07/19 Warfarin [Coumadin] 3 mg PO SUTUTHSA 07/07/19 Amox/Clavulanate Tablet [Augmentin Tablet] 875 mg PO Q12H #12 tab 07/08/19 The following prescriptions were given: Amox/Clavulanate Tablet [Augmentin Tablet] 875 mg PO Q12H #12 tab Transmission Status: Pending to [id number] Primary Care Physician: Ai Anguiano MD [Primary Care Provider] - Please follow up with your Primary Care Physician in: in 2 weeks Test Results: Test results from this visit will be discussed in further detail at your follow- up appointment, if applicable.
--- NOTE | 2019-07-08 10:41 | DS.PCM_ITS ---
Discharge Date and Diagnosis - Problem List Patient Problems: Active and Suspected Problems (Last Reviewed 10/25/18 @ 15:[address] lAex Lama MD) Cellulitis of left lower extremity (Acute) Date of Admission: 07/07/19 Date of Discharge: 07/08/19 - Primary Discharge Diagnosis Active and Suspected Problems (Last Reviewed 10/25/18 @ 15:[address] Alex Lama MD) Cellulitis of left lower extremity (Acute) - Secondary Discharge Diagnosis Chronic Problems (Last Reviewed 10/25/18 @ 15:[address] Alex Lama MD) YOLY (obstructive sleep apnea) (Chronic) Hypertension (Chronic) Diabetes mellitus, type II (Chronic) Morbid obesity (Chronic) Diabetes mellitus (Chronic) Pulmonary embolism (Chronic) Sleep apnea (Chronic) Insomnia (Chronic) COPD (chronic obstructive pulmonary disease) (Chronic) Breast cancer (Chronic) Lupus anticoagulant disorder (Chronic) Thoracic aortic aneurysm (Chronic) Essential (primary) hypertension (Chronic) Hyperlipidemia (Chronic) History of pulmonary embolism (Chronic) Hospital Course and Treatment Operations: None, total hip replacement, - Summary of Care Provided: [] This is a 79-year-old female with multiple comorbidities admitted with left lower leg cellulitis. 1. Bilateral lower extremity edema, left worse than right with left lower leg cellulitis: Patient is being admitted on MedSurg. Started on IV Unasyn in ER and will continue it. Blood cultures x2 sent from ER. UA done in ER shows 1+ bacteria with 5-10 WBC cells. Patient does not have acute lower urinary tract symptoms therefore possible asymptomatic bacteriuria. Urine culture not indicated. Patient cellulitis got better on Unasyn. Patient wants to go home. Discharged on 6 more days of Augmentin 875 mg twice daily to complete a total of 7 days. Labs reviewed. No leukocytosis. 2. Diabetes mellitus type 2 with chronic diabetic nephropathy, CKD stage III: Accu-Chek before meals and at bedtime and cover with blood sliding scale. Patient on Lantus 10 units of units twice daily and continued. Kidney function is stable, creatinine 1.39 on admission got better slightly 1.17 with estimated creatinine clearance 36 mL/min. 3. Chronic bilateral ankle deformity and patient uses a scooter for ambulation with chronic back pain: PT and OT ordered. On pain medication 4. Hypertension and obstructive sleep apnea on BiPAP: BiPAP ordered. Patient denies history of COPD but is on Breo Ellipta and follows Dr. Tripp 5. Lupus anticoagulant disorder with pulmonary embolism on Coumadin: INR supratherapeutic. Repeat INR 3.7. Patient advised to keep holding Coumadin and repeat PT/INR on 07/10/2019 and follow with PCP to adjust the dose of Coumadin accordingly. 6. Breast cancer on anastrozole: Anastrozole continued 7. Morbid obesity, thoracic aortic aneurysm, dyslipidemia and morbid obesity: Home medication reconciliation done. Patient was admitted as inpatient but was discharged because of sooner recovery than expected. Discharge medication reconciliation done. Discharge follow-up instructions completed. Discharge process discussed with the patient and all questions were answered to patient's satisfaction. Total time spent, exact 35 minutes on discharge meds reconciliation, examination, coordination of care with nurses and ancillary staff, review of imaging and blood test and discussion with the patient on follow-up instructions DNR CC arrest. Laboratory Results 07/07/19 13:15: Lactic Acid 1.8 07/07/19 13:15: B-Natriuretic Peptide 14.2 07/07/19 13:15: PT 36.1 H, INR 3.7 H* 07/07/19 13:56: Urine Color Yellow, Urine Clarity Sl. Cloudy, Urine pH 5.0, Ur Specific [place] 1.020, Urine Protein 30 H, Urine Glucose (UA) Normal, Urine Ketones 5 H, Urine Occult Blood 25 H, Urine Nitrite Negative, Urine Bilirubin Negative, Urine Urobilinogen Normal, Ur Leukocyte Esterase 500 H, Urine RBC 0-5 SEEN, Urine WBC 5-10 SEEN, Ur Squamous Epith Cells 0-5 SEEN, Urine Bacteria 1+, Urine Mucus RARE 07/07/19 16:37: POC Glucose 111 H 07/07/19 23:12: POC Glucose 131 H 07/08/19 05:12: WBC 7.1, RBC 3.94 L, Hgb 11.2 L, Hct 37.0, MCV 93.9, MCH 28.4, MCHC 30.3 L, RDW Std Deviation 48.8 H, RDW Coeff of Mona 14.3, Plt Count 202, MPV 9.5, Immature Gran % (Auto) 1.100 H, Neut % (Auto) 67.3, Lymph % (Auto) 12.4 L, [place] % (Auto) 15.1 H, Eos % (Auto) 3.5, Baso % (Auto) 0.6, Absolute Neuts (auto) 4.8, Absolute Lymphs (auto) 0.88, Nucleated RBC % 0 07/08/19 05:12: Sodium 139, Potassium 4.6, Chloride 110 H, Carbon Dioxide 22.0, Anion Gap 7, BUN 20 H, Creatinine 1.17 H, Estim Creat Clear Calc 36.23, Est GFR (MDRD) Af Amer 58 L, Est GFR (MDRD) Non-Af 48 L, BUN/Creatinine Ratio 17.1, Glucose 112 H, Calcium 8.7 07/08/19 06:29: POC Glucose 113 H 07/08/19 10:48: POC Glucose 166 H 07/08/19 11:04: PT Pending, INR Pending Patient Problems: Active and Suspected Problems (Last Reviewed 10/25/18 @ 15:[address] Alex Lama MD) Cellulitis of left lower extremity (Acute) Subjective: No fever or chills. No tachycardia. Blood pressure is stable. No leukocytosis Objective: General: Alert, Oriented x3, Cooperative HEENT: Atraumatic, PERRLA, EOMI, Normocephalic Oral: Dry Mucosa, - - Oropharyngeal structures are crowded Neck: Supple, No JVD, Negative Carotid Bruits Lungs: Clear to auscultation, No rhonchi, No wheeze, No rales, Air entry diminished bilateral lung bases Cardiovascular: Regular rate, Regular Rhythm, Normal S1, Normal S2, No murmurs Abdomen: Bowel Sounds Present, Soft, Non Tender, Non-Distended Extremities: Capillary Refill Less than 3 Seconds, bilateral lower leg/ankle edema Skin: No breakdown, Erythematous rash present on left leg around left ankle level. The extent of erythema, tenderness and induration has decreased which was slightly above left knee now on the lower one third of leg. Musculoskeletal: No Tenderness to Palpation of Joints or Extremities Neurological: Cranial nerves II-XII grossly intact Psych/Mental Status: Normal Affect, Appropriate - Physical Exam Vitals/I&O's: Vital Signs Temp Pulse Resp BP Pulse Ox 97.5 F L 90 18 117/70 93 07/08/19 06:18 07/08/19 07:50 07/08/19 07:15 04/12/20 06:18 07/08/19 07:15 Oxygen Delivery Method Room Air Weight: 252 lb 10.396 oz Body Mass Index (BMI) 42.0 Finger Stick Blood Glucose 139 Intake and Output for Last 24 Hours 07/06/19 07/07/19 07/08/19 23:59 23:59 23:59 Intake Total 474 / 794 482 / 482 Balance 474 / 794 482 / 482 Laboratory Results 07/07/19 13:15: WBC 9.3, RBC 4.50, Hgb 12.9, Hct 41.6, MCV 92.4, MCH 28.7, MCHC 31.0 L, RDW Std Deviation 49.1 H, RDW Coeff of Mona 14.3, Plt Count 213, MPV 9.0, Immature Gran % (Auto) 0.900, Neut % (Auto) 77.5 H, Lymph % (Auto) 7.0 L, [place] % (Auto) 12.8 H, Eos % (Auto) 1.5, Baso % (Auto) 0.3, Absolute Neuts (auto) 7.2, Absolute Lymphs (auto) 0.65 L, Nucleated RBC % 0 07/07/19 13:15: Sodium 138, Potassium 4.4, Chloride 107, Carbon Dioxide 26.0, Anion Gap 5, BUN 23 H, Creatinine 1.39 H, Estim Creat Clear Calc 31.73, Est GFR (MDRD) Af Amer 47 L, Est GFR (MDRD) Non-Af 39 L, BUN/Creatinine Ratio 16.5, Glucose 153 H, Calcium 9.3 07/07/19 13:15: Lactic Acid 1.8 07/07/19 13:15: B-Natriuretic Peptide 14.2 07/07/19 13:15: PT 36.1 H, INR 3.7 H* 07/07/19 13:56: Urine Color Yellow, Urine Clarity Sl. Cloudy, Urine pH 5.0, Ur Specific [place] 1.020, Urine Protein 30 H, Urine Glucose (UA) Normal, Urine Ketones 5 H, Urine Occult Blood 25 H, Urine Nitrite Negative, Urine Bilirubin Negative, Urine Urobilinogen Normal, Ur Leukocyte Esterase 500 H, Urine RBC 0-5 SEEN, Urine WBC 5-10 SEEN, Ur Squamous Epith Cells 0-5 SEEN, Urine Bacteria 1+, Urine Mucus RARE 07/07/19 16:37: POC Glucose 111 H 07/07/19 23:12: POC Glucose 131 H 07/08/19 05:12: WBC 7.1, RBC 3.94 L, Hgb 11.2 L, Hct 37.0, MCV 93.9, MCH 28.4, MCHC 30.3 L, RDW Std Deviation 48.8 H, RDW Coeff of Mona 14.3, Plt Count 202, MPV 9.5, Immature Gran % (Auto) 1.100 H, Neut % (Auto) 67.3, Lymph % (Auto) 12.4 L, [place] % (Auto) 15.1 H, Eos % (Auto) 3.5, Baso % (Auto) 0.6, Absolute Neuts (auto) 4.8, Absolute Lymphs (auto) 0.88, Nucleated RBC % 0 07/08/19 05:12: Sodium 139, Potassium 4.6, Chloride 110 H, Carbon Dioxide 22.0, Anion Gap 7, BUN 20 H, Creatinine 1.17 H, Estim Creat Clear Calc 36.23, Est GFR (MDRD) Af Amer 58 L, Est GFR (MDRD) Non-Af 48 L, BUN/Creatinine Ratio 17.1, Glucose 112 H, Calcium 8.7 07/08/19 06:29: POC Glucose 113 H Current Medications Acetaminophen (Tylenol) 650 mg PO Q6H PRN PRN PRN Reason: Pain Score 1-10/Temp > 100.7 F Albuterol Sulfate (Ventolin Aerosols) 2.5 mg INHALATION Q2H PRN PRN PRN Reason: Shortness of Breath/Wheezing Albuterol Sulfate (Ventolin Aerosols) 2.5 mg INHALATION Q6HWA.RT [facility] Last Admin: 07/08/19 07:15 Dose: 2.5 mg Documented by: Anastrozole (Arimidex) 1 mg PO DAILY [facility] Atorvastatin Calcium (Lipitor) 20 mg PO QHS [facility] Last Admin: 07/07/19 23:18 Dose: 20 mg Documented by: Budesonide (Pulmicort Aerosol) 0.5 mg INHALATION Q12H.RT [facility] Last Admin: 07/08/19 07:15 Dose: 0.5 mg Documented by: Bupropion HCl (Wellbutrin Xl) 150 mg PO DAILY [facility] Last Admin: 07/08/19 08:05 Dose: 150 mg Documented by: Clonazepam (Klonopin) 1 mg PO DAILY PRN PRN PRN Reason: restless leg syndrome Last Admin: 07/07/19 23:22 Dose: 1 mg Documented by: Dextrose (D50w Syringe) 0 gm IV X1 PRN; Protocol PRN Reason: Hypoglycemia Furosemide (Lasix) 20 mg PO DAILY [facility] Last Admin: 07/08/19 08:05 Dose: 20 mg Documented by: Glucagon () 1 mg IM .X1 PRN PRN Reason: Hypoglycemia Guaifenesin (Robitussin) 20 ml PO Q4H PRN PRN PRN Reason: COUGH Sodium Chloride () 1,000 mls @ 30 mls/hr IV .[id number] [facility] Last Admin: 07/07/19 18:08 Dose: 30 mls/hr Documented by: Ampicillin Sodium/Sulbactam (Sodium 3 gm/ Sodium Chloride) 112 mls @ 150 mls/hr IV Q12 [facility] Last Infusion: 07/08/19 10:35 Dose: Infused Documented by: Insulin Glargine (Lantus ([facility])) 10 units SC BID [facility] Last Admin: 07/08/19 09:35 Dose: 10 unit Documented by: Insulin Human Lispro (Humalog Kwikpen ([facility])) 0 unit SC ACHS [facility]; Protocol Last Admin: 07/08/19 06:30 Dose: Not Given Documented by: Levothyroxine Sodium (Synthroid) 112 mcg PO DAILY@0600 [facility] Last Admin: 07/08/19 06:26 Dose: 112 mcg Documented by: Morphine Sulfate () 2 mg IV Q3H PRN PRN PRN Reason: Pain Score 4-10/10 Nutritional Formula (Lactose Free) (Glucerna Shake) 120 ml PO 4X/DAY [facility] Last Admin: 07/08/19 08:04 Dose: 120 ml Documented by: Nystatin (Mycostatin Powder) 1 applic TOPICAL TID [facility]; Protocol Last Admin: 07/08/19 06:26 Dose: Not Given Documented by: Polyethylene Glycol (Miralax) 17 gm PO DAILY [facility] Last Admin: 07/08/19 08:05 Dose: 17 gm Documented by: Potassium Chloride (K-Dur) 10 meq PO DAILY@0800 [facility] Last Admin: 07/08/19 08:09 Dose: 10 meq Documented by: Prochlorperazine Edisylate (Compazine Iv) 5 mg IV Q4H PRN PRN PRN Reason: Breakthrough nausea/vomiting Senna/Docusate Sodium (Senokot-S, Yola-Colace) 2 tablet PO BID [facility] Last Admin: 07/08/19 08:05 Dose: 2 tablet Documented by: Sodium Chloride () 10 - 40 ml IV UD PRN PRN Reason: SALINE FLUSH Last Admin: 07/07/19 18:08 Dose: 10 ml Documented by: Spironolactone (Aldactone) 25 mg PO DAILY [facility] Last Admin: 07/08/19 08:10 Dose: 25 mg Documented by: Tolterodine Tartrate (Detrol La) 2 mg PO DAILY [facility] Last Admin: 07/08/19 08:07 Dose: 2 mg Documented by: Trazodone HCl (Desyrel) 150 mg PO QHS [facility] Last Admin: 07/07/19 23:18 Dose: 150 mg Documented by: Call your doctor if you observe: Fever of 101 or Higher, Change in Color, Inability to urinate, Inability to have a bowel movement, Using more than one pad per hour, Shortness of breath, Fainting spells, Swelling in the ankles, Chest pain, Increased palpitations (irregular heartbeat), Calf discomfort, Un controlled pain Home Medications: Medications to take at Discharge Levothyroxine [Synthroid] 112 mcg PO DAILY 01/24/14 Simvastatin [Zocor] 40 mg PO QHS 01/24/14 Anastrozole [Arimidex] 1 mg PO DAILY 03/17/15 traZODone [Desyrel] 150 mg PO QHS 05/07/16 Bupropion HCl [Bupropion Xl] 150 mg PO DAILY 04/22/18 Furosemide [Lasix] 20 mg PO DAILY 05/04/18 Spironolactone [Aldactone] 25 mg PO DAILY 05/10/18 Albuterol Inhaler [Ventolin Hfa] 2 puff INHALATION Q6HWA.RT PRN 08/01/18 Nystatin Powder [Mycostatin Powder] 1 applic TOPICAL TID 12/13/18 Acetaminophen [Tylenol] 1,000 mg PO Q6H PRN PRN tab 01/02/19 Clonazepam [Klonopin] 1 mg PO DAILY PRN PRN #14 tab 01/02/19 Ergocalciferol [Vitamin D] 50,000 unit PO Q7D cap 01/02/19 Polyethylene Glycol 3350 [Miralax] 17 gm PO DAILY packet 01/02/19 Senna/Docusate Sodium [Senokot-S] 2 tab PO BID tab 01/02/19 Fluticasone/Vilanterol [Breo Ellipta 200-25 Mcg INH] 1 ea IH DAILY 07/07/19 Oxybutynin Chloride [Oxybutynin Chloride ER] 10 mg PO DAILY 07/07/19 Potassium Chloride [K-Dur] 10 meq PO DAILY 07/07/19 Amox/Clavulanate Tablet [Augmentin Tablet] 875 mg PO Q12H #12 tab 07/08/19 Warfarin [Coumadin] 1.5 mg PO MOWEFR #0 07/08/19 Warfarin [Coumadin] 3 mg PO SUTUTHSA #0 07/08/19 Following Prescrptions Were Given to Patient: Amox/Clavulanate Tablet [Augmentin Tablet] 875 mg PO Q12H #12 tab Transmission Status: Received by [id number] Other Amb Orders: Prothrombin Time w/INR Time Frame: 07/10/19, Facility: [facility], Location: Laboratory Primary Care Physician: Ai Anguiano MD [Primary Care Provider] - Please follow up with your Primary Care Physician in: in 2 weeks Medical Necessity - Tobacco Use Smoking Status: Never smoker Meaningful Use Info Meaningful Use Diagnoses (Choose all that apply): None applicable Inpatient E&M: [id number] [facility]
[2019-07-08 11:02] LABS: Bedside Glucose 166 mg/dL (70-110)
[2019-07-08] MEDS: Insulin Lispro 100 UNIT/ML INSULN.PEN SC (11:14)
[2019-07-08 11:43] LABS: Prothrombin Time (Protime)PT. 36.5 SECONDS (11.7-14.9)
[2019-07-08 11:46] LABS: International Normalized Ratio 3.7
[2019-07-08 13:28] VITALS: BP 117/87; PULSE 88; RESP 16; TEMP 36.7; O2SAT 96
[2019-07-08] MEDS: Anastrozole 1 MG Tablet PO (13:34)
== END 2019-07-08 13:35 | disposition home or self-care (01) | DRG 603 ==
LOC: ED 13:04 → PCU 14:52
PROVIDERS: Admitting Provider Internal Medicine; Emergency Provider Emergency Medicine; PCP Internal Medicine; Visit Provider Internal Medicine
DX: L03.116 Cellulitis of left lower limb (principal); D68.62 Lupus anticoagulant syndrome; I27.82 Chronic pulmonary embolism; R82.71 Bacteriuria; G47.33 Obstructive sleep apnea (adult) (pediatric); E66.01 Morbid (severe) obesity due to excess calories; J44.9 Chronic obstructive pulmonary disease, unspecified; I71.2 Thoracic aortic aneurysm, without rupture; I12.9 Hypertensive chronic kidney disease with stage 1 through stage 4 chronic kidney disease, or unspecified chronic kidney disease; N18.3 Chronic kidney disease, stage 3 (moderate); E11.22 Type 2 diabetes mellitus with diabetic chronic kidney disease; M54.9 Dorsalgia, unspecified; G89.29 Other chronic pain; C50.919 Malignant neoplasm of unspecified site of unspecified female breast; E78.5 Hyperlipidemia, unspecified; M21.962 Unspecified acquired deformity of left lower leg; M21.961 Unspecified acquired deformity of right lower leg; Z90.49 Acquired absence of other specified parts of digestive tract; Z79.01 Long term (current) use of anticoagulants; Z79.4 Long term (current) use of insulin; Z51.5 Encounter for palliative care; Z66 Do not resuscitate; Z79.811 Long term (current) use of aromatase inhibitors; Z96.652 Presence of left artificial knee joint; Z96.643 Presence of artificial hip joint, bilateral; Z87.442 Personal history of urinary calculi; M25.50 Pain in unspecified joint; R06.02 Shortness of breath
CPT/HCPCS: 36415; 80048; 81001; 82962; 83605; 83880; 85025; 85610; 87040; 93970; 94640; 96365; 97162; 97166; 99251; 99283; J7030; J7040; A4216; G0463; J0295

== ENCOUNTER → 2019-07-12 15:57 | Outpatient (CLI) | payer MEDICARE, SELFPAY ==
[2019-07-07 15:28] VITALS: BMI 42.0
== END ==
PROVIDERS: PCP Internal Medicine; Referring Provider Internal Medicine Pulmonary Disease; Visit Provider Internal Medicine Pulmonary Disease
DX: R05 Cough (principal)
CPT/HCPCS: 87070; 87077; 87186; 87205

== ENCOUNTER → 2019-09-10 13:23 | Outpatient (CLI) | payer MEDICARE, SELFPAY ==
--- NOTE | 2019-09-10 13:34 | CT_ITS ---
STUDY: CT MAXILLOFACIAL SINUSES REASON FOR EXAM: Female, 79 years old. Sinusitis, post nasal drip, cough. No sinus pressure/pain. Hx diabetes and breast cancer. RADIATION DOSAGE (If Supplied By Facility): CTDIvol = ( 26.04 ) mGy, DLP = ( 1228.34 ) mGycm TECHNIQUE: The patient was scanned in a multi detector CT scanner. High resolution axial imaging was performed without the administration of intravenous contrast material. Sagittal and coronal images were reconstructed. Individualized dose optimization techniques were used for this CT. COMPARISON: None. FINDINGS: FRONTAL SINUSES: Normal aeration, without mucosal inflammatory disease. ETHMOIDAL SINUSES: Normal aeration, without mucosal inflammatory disease. MAXILLARY SINUSES: Normal aeration, without mucosal inflammatory disease. SPHENOIDAL SINUSES: Normal aeration, without mucosal inflammatory disease. There is patency of the bilateral maxillary infundibuli with normal uncinate processes, ethmoid bullae, and hiatus semilunaris. Normal bilateral middle turbinates. Normal bilateral inferior turbinates. Normal midline nasal septum. There is patency of the bilateral nasal airways. The visualized osseous structures are normal. The visualized bilateral orbital contents are normal. CT/Sinus/Facial Bone IMPRESSION: Normal CT examination of the maxillofacial sinuses. Electronically Signed: Rogelio Oleary, at 14:17 EDT , Service support ,
== END ==
PROVIDERS: PCP Internal Medicine; Referring Provider Internal Medicine Pulmonary Disease; Visit Provider Internal Medicine Pulmonary Disease
DX: R05 Cough (principal); J18.9 Pneumonia, unspecified organism; J32.9 Chronic sinusitis, unspecified
CPT/HCPCS: 70486

== ENCOUNTER 2019-09-14 10:18 | Outpatient (RCR) | payer MEDICARE, SELFPAY ==
--- NOTE | 2019-09-19 10:06 | HP.OTEVAL ---
Patient's Visit Information DULCE SANCHEZ is a 79 year old F, referred to Occupational Therapy by Dr. Silviano Parkinson MD, with a diagnosis of LE lymphedema. Date of Evaluation: 09/14/19 Occupational Therapist: Elham Franks, OTR/L, CHT - Subjective this 79 year old female was seen for LE edema. pt states she has had swelling in her LE for about 5 years. Pt states she is to painful to apply compression socks to her legs. pt would like to know what she can do to assist with mtg. Pts spouse has been using rustam wraps to apply compression to mtg. LE delphine. - Pain left LE 4 Pain Intensity Range: 4 - Lymphedema (Circumferential Measure) Mid-foot: right 22cm left 23cm Ankle: right 27cm left 30cm Lower calf: right 30cm left 30cm Largest calf: right 43cm left 44cm Below knee: right 41cm left 42cm Lower Exremity Comments: pt arrives with bilateral rustam waps on from foot to mid calf. - Lower Limb Functional Index Lower Extremity Functional Score: 15 - Goals Demonstrate a 20% reduction in edema by d/c: Yes Demonstrate adequate knowledge skin care/prec by 2nd week: Yes Demonstrate adequate knowledge therapeutic exercises by d/c: Yes Select approp compression garment w/donning/care/wear by d/c: Yes Voice need to replace compression garment every 4-6mo by dc: Yes - Rehabilitation General Assessment: pt demo with LE edema and tenderness. pt would benefit from skilled OT services 2-3 visit to ensure pts has understanding of edema mtg and use of compression garment or compression alternatives to assist in mtg.of her edema. pt arrived with compression socks- unsure of compression class and fit- therapist ed. pt on use of rubber gloved to hollie/doff compression sock. pt paiful when therapsit reached her calf- this could be from the wraps compression her calf. Therapsist ed. pt on tx options, skin care and ex. to stimulate circulation. pt given handouts and ed. on use of medical grade compression socks or compression alternatives 20-30 mmHg. therapist ed. pt that [facility] is not a DME provider and i could not order garments for them. they were ed. on checking with insurance and order through [employer], or [facility], or online. Both demo understanding and agree to POC. Pt to return when she recieves compression garment of choice for fitting and to ensure understanding of ex. pt and spouse demo understanding. Rehabilitation Potential: Fair - Anticipated Interventions Education re Diagnosis, Manual Lymph Drainage, Education re Life-long lymphedema Management, Education re Skin Care and Precautions, Education re Correct Donning Tech,Care&Wearing Sched Comp Garments, Caregiver Training, Home Program - Visit Plan TEXT: Thank you for the opportunity to evaluate your patient. For Medicare and Medicare HMO plans, please review the plan of care and approve it. It will need to be FAXED BACK to us at [phone] for Medicare purposes. Please let me know if there are questions or concerns regarding this plan of care. Physician Signature: Date:
--- NOTE | 2019-11-20 12:45 | HP.OT.NRP ---
DULCE SANCHEZ was seen in my office for initial evaluation on 09/14/19. The following Plan of Care was established for this patient: Anticipated Interventions: Education re Diagnosis, Manual Lymph Drainage, Education re Life-long lymphedema Management, Education re Skin Care and Precautions, Education re Correct Donning Tech,Care&Wearing Sched Comp Garments, Caregiver Training, Home Program This patient was last seen in our office 09/14/19. Pertinent comments regarding their Occupational therapy will appear below: pt seen for initial OT eval only- pt was to return after reciving compression garment/alternative- pt has not done so at this time- pt d/c from skilled therapy services due to time lapse in care. At this point I will be discontinuing this patient from occupational therapy. I would be happy to see this patient again in the future if found appropriate by the physician. Thank you! Elham Franks, OTR/L, CHT
== END 2019-09-14 19:00 | disposition home or self-care (01) ==
LOC: OT 10:18
PROVIDERS: PCP Internal Medicine; Referring Provider Dermatology; Visit Provider Dermatology
DX: I89.0 Lymphedema, not elsewhere classified (principal)
CPT/HCPCS: 97166

== ENCOUNTER → 2019-11-01 13:05 | Outpatient (CLI) | payer MEDICARE, SELFPAY ==
[2019-10-25 11:23] VITALS: BMI 41.5
--- NOTE | 2019-11-01 14:34 | SP.MBSS_ITS ---
Primary/Secondary Diagnosis: dysphagia, unspecified (R13.10) Referring Physician: Dr. Abelardo Lyons Medical History: The patient is a 79/F with past medical history including cellulitis of left lower extremity Fall, Cellulitis of right elbow, debility, obstructive sleep apnea, Hypertension, Diabetes mellitus type II, Morbid obesity, Closed head injury, history of Pulmonary embolism, Insomnia, COPD, breast cancer, Gait difficulty, Lupus anticoagulant disorder, Thoracic aortic aneurysm, essential (primary) hypertension, and Hyperlipidemia. Reason for Referral: frequent coughing Current Diet: regular textures/thin liquids Dentition: natural teeth Mental Status: WFL Respiratory Status: oxygenating on room air Previous Modified Barium Swallow: N/A Study Findings: This patient was seen for a Modified Barium Swallow. This study was recorded in the lateral view and images were sent to PACs for storage. The following consistencies were presented to this patient for analysis of oropharyngeal swallow function: thin liquid, nectar thick liquid, pudding, and a cookie. Oral Phase Labial seal: no labial escape Tongue control during bolus hold: escape to lateral buccal cavity/floor of mouth Bolus preparation/mastication: timely and efficient chewing and mashing Bolus transport/lingual motion: brisk tongue motion Oral residue: trace residue lining oral structures Pharyngeal Phase Initiation of pharyngeal swallow: bolus head in pyriforms Soft palate elevation: no bolus between soft palate and pharyngeal wall Laryngeal elevation: partial superior movement of thyroid cartilage/partial approximation of arytenoids cartilage to epiglottic petiole Anterior hyoid excursion: partial anterior movement Epiglottic movement: complete inversion Laryngeal vestibule closure at height of swallow: incomplete; narrow column of air/contrast in laryngeal vestibule Pharyngeal stripping wave: present complete Pharyngoesophageal segment opening: complete distension and complete duration; no obstruction of flow Tongue base retraction: wide column of contrast between tongue base and posterior pharyngeal wall Pharyngeal residue:trace residue within or on pharyngeal structures Penetration-Aspiration Scale 1 = does not enter airway 2 = enters airway/above vocal folds/ejected 3 = enters airway/above vocal folds/not ejected 4 = enters airway/contacts vocal folds/ejected 5 = enters airway/contacts vocal folds/not ejected 6 = enters airway/below vocal folds/ejected 7 = enters airway/below vocal folds/not ejected despite effort 8 = enters airway/below vocal folds/no effort Penetration-Aspiration Scale Score: 1) Thin liquids via tsp = 1 2) Thin liquids via small single sip from cup = 2 3) Thin Liquids via large single sip from cup = 4 4) Thin liquids via sequential sips from cup = 2 5) [place] thick liquids via small single sip from cup = 1 6) [place] thick liquids via large single sip from cup = 1 7) Pudding = 1 8) Cookie = 1 9) Thin liquids via sequential sip from straw = 2 10) Thin liquids via sequential sip from straw = 2 11) Thin liquids via sequential sip from cup = 5 Diagnosis: mild oropharyngeal dysphagia (R13.12) Impression: Due to body habitus, some pharyngeal structures and landmarks were difficult to distinguish during some of the trials. The patient trialed thin liquid with trace penetration above the vocal cords when trialed in smaller amounts one sip at a time. With larger sequential sips via cup patient found to have penetration of the thin liquid to the vocal cords without ejection. Although, no aspiration was determined it cannot definitively be ruled out. Patient trialed nectar thick liquids with no aspiration or penetration. Patient had timely mastication with Sushma Doone shortbread cookie leaving only trace oral residue. Patient trialed pudding consistency with adequate swallow initiation and oral clearance. It is recommended patient continue with regular textures and thin liquids with one small sip at a time. Would consider repeat MBS study annually or with increased symptoms of dysphagia. Patient with diagnosis of COPD which does increase risk for silent aspiration. Recommendations Diet: regular textures/thin liquids Compensatory Strategies Recommended: small bites and sips with one small sip at a time, sitting upright when eating/drinking close to 90 degrees, and eat/drink at a slow rate. ADDITIONAL COMMENTS/RECOMMENDATIONS: Results and recommendations reviewed with the patient and her at the completion of MBS study. Patient encouraged to follow up with ordering physician, Dr. Lyons. Annamarie Cabrera MA, CCC-LEAD CARE MANAGER [place] [phone] [email or web address]
== END ==
PROVIDERS: PCP Internal Medicine; Referring Provider Otolaryngology; Visit Provider Otolaryngology
DX: R13.10 Dysphagia, unspecified (principal)
CPT/HCPCS: 74230; 92611

== ENCOUNTER 2019-11-21 12:34 | Outpatient (RCR) | payer MEDICARE, SELFPAY ==
[2019-10-25 11:23] VITALS: BMI 41.5
--- NOTE | 2019-12-04 10:48 | HP.SP.AD_ITS ---
History - History Date of Eval: 11/21/19 Medical Diagnosis (from RX): Dysphagia Date of Onset of Diagnosis: 11/01/19 Previous speech therapy: No Other Relevant Medical History/Diagnoses/Surgery: Cellulitis of left lower ext remity, Fall, Cellulitis of right elbow, debility, obstructive sleep apnea, Hypertension, Diabetes mellitus type II, Morbid obesity, Closed head injury, history of Pulmonary embolism, Insomnia, COPD, breast cancer, Gait difficulty, Lupus anticoagulant disorder, Thoracic aortic aneurysm, essential (primary) hypertension, and Hyperlipidemia. Smoking Status: Never smoker Hx Smoking: No Hx Tobacco Use: No Hx Smoking Exposure: No - Pain Is pain an issue with your current prescribed condition?: No - Personal Right Hearing Abillity: Normal Left Hearing Abillity: Normal Patients Living Arrangements: With Significant Other Patient Allergies - Allergies Allergies acetaminophen [From Vicodin] Adverse Reaction (Verified 10/25/19 11:24) Unknown hydrocodone bitartrate [From Vicodin] Adverse Reaction (Verified 10/25/19 11:24) Upset Stomach Subjective Dysphagia - Symptoms Reported Symptoms/Problems with: Coughing - Current Diet Solids Current Diet: Regular - Current Diet Liquids Current Liquids: Windsor Thick Najera free water Protocol: No Modified Barium Results Hx MBS Report Entered: Yes MBS Results (from prior exam): 12/04/19 10:46 Speech Therapy by Nghia Stevens Modified Barium Swallow Study MR#: [id number] Acct: [id number] Name: DULCE SANCHEZ Rep #:[id number] From: Annamarie haji [facility]-PHARMACY CLINICAL COORDINATOR, M.A. Primary/Secondary Diagnosis: dysphagia, unspecified (R13.10) Referring Physician: Dr. Abelardo Lyons Medical History: The patient is a 79/F with past medical history including cellulitis of left lower extremity Fall, Cellulitis of right elbow, debility, obstructive sleep apnea, Hypertension, Diabetes mellitus type II, Morbid obesity, Closed head injury, history of Pulmonary embolism, Insomnia, COPD, breast cancer, Gait difficulty, Lupus anticoagulant disorder, Thoracic aortic aneurysm, essential (primary) hypertension, and Hyperlipidemia. Reason for Referral: frequent coughing Current Diet: regular textures/thin liquids Dentition: natural teeth Mental Status: WFL Respiratory Status: oxygenating on room air Previous Modified Barium Swallow: N/A Study Findings: This patient was seen for a Modified Barium Swallow. This study was recorded in the lateral view and images were sent to PACs for storage. The following consistencies were presented to this patient for analysis of oropharyngeal swallow function: thin liquid, nectar thick liquid, pudding, and a cookie. Oral Phase Labial seal: no labial escape Tongue control during bolus hold: escape to lateral buccal cavity/floor of mouth Bolus preparation/mastication: timely and efficient chewing and mashing Bolus transport/lingual motion: brisk tongue motion Oral residue: trace residue lining oral structures Pharyngeal Phase Initiation of pharyngeal swallow: bolus head in pyriforms Soft palate elevation: no bolus between soft palate and pharyngeal wall Laryngeal elevation: partial superior movement of thyroid cartilage/partial approximation of arytenoids cartilage to epiglottic petiole Anterior hyoid excursion: partial anterior movement Epiglottic movement: complete inversion Laryngeal vestibule closure at height of swallow: incomplete; narrow column of air/contrast in laryngeal vestibule Pharyngeal stripping wave: present complete Pharyngoesophageal segment opening: complete distension and complete duration; no obstruction of flow Tongue base retraction: wide column of contrast between tongue base and posterior pharyngeal wall Pharyngeal residue:trace residue within or on pharyngeal structures Penetration-Aspiration Scale 1 = does not enter airway 2 = enters airway/above vocal folds/ejected 3 = enters airway/above vocal folds/not ejected 4 = enters airway/contacts vocal folds/ejected 5 = enters airway/contacts vocal folds/not ejected 6 = enters airway/below vocal folds/ejected 7 = enters airway/below vocal folds/not ejected despite effort 8 = enters airway/below vocal folds/no effort Penetration-Aspiration Scale Score: 1) Thin liquids via tsp = 1 2) Thin liquids via small single sip from cup = 2 3) Thin Liquids via large single sip from cup = 4 4) Thin liquids via sequential sips from cup = 2 5) Windsor thick liquids via small single sip from cup = 1 6) Windsor thick liquids via large single sip from cup = 1 7) Pudding = 1 8) Cookie = 1 9) Thin liquids via sequential sip from straw = 2 10) Thin liquids via sequential sip from straw = 2 11) Thin liquids via sequential sip from cup = 5 Diagnosis: mild oropharyngeal dysphagia (R13.12) Impression: Due to body habitus, some pharyngeal structures and landmarks were difficult to distinguish during some of the trials. The patient trialed thin liquid with trace penetration above the vocal cords when trialed in smaller amounts one sip at a time. With larger sequential sips via cup patient found to have penetration of the thin liquid to the vocal cords without ejection. Although, no aspiration was determined it cannot definitively be ruled out. Patient trialed nectar thick liquids with no aspiration or penetration. Patient had timely mastication with Sushma Doone shortbread cookie leaving only trace oral residue. Patient trialed pudding consistency with adequate swallow initiation and oral clearance. It is recommended patient continue with regular textures and thin liquids with one small sip at a time. Would consider repeat MBS study annually or with increased symptoms of dysphagia. Patient with diagnosis of COPD which does increase risk for silent aspiration. Recommendations Diet: regular textures/thin liquids Compensatory Strategies Recommended: small bites and sips with one small sip at a time, sitting upright when eating/drinking close to 90 degrees, and eat/drink at a slow rate. ADDITIONAL COMMENTS/RECOMMENDATIONS: Results and recommendations reviewed with the patient and her at the completion of MBS study. Patient encouraged to follow up with ordering physician, Dr. Lyons. Annamarie Cabrera MA, CCC-PHARMACY [place] [address] [email or web address] 11/01/19 1448 <Electronically signed by Annamarie you CCC-PHARMACY CLINICAL COORDINATOR, M.A.> Date _ Annamarie Cabrera CCC-PHARMACY CLINICAL COORDINATOR, M.A. Co-Signature Required for all Medicare patients Date/Time _ Co-Signature CC: ~ Initialized on 12/04/19 10:46 - END OF NOTE Dysphagia Assessment - Impact Impact on Safety & Functioning: Risk for Aspiration - Recommendations Modified Barium Swallow/Cookie Swallow Recommended: No Swallowing Treatment: No - Diet Texture Recommendations Solids Other: Regular Liquids: Thin - Safety Saftey Precautions/Swallowing Recommendations (Check all that Apply): Upright Position at Least 30 Minutes After Meals, Small Sips & Bites when Eating, Other (Specify Below) Other: Slow rate. Plan - Plan Plan: Patient was provided with swallow exercises to complete at home as she demonstrated independence during the evaluation. One session may be completed in one month if the patient feels she needs it. She was provided with a way to contact therapist at any time with questions. - Recommendations MBS: No Treatment Warranted: No - Goal #1-5 Goal #1: No direct therapy warranted at this time. Education - Patient Instruction Patient Education: Diagnosis, Treatment Plan, Diet Level, Home Exercise Program Person Taught: Patient, Significant Other Teaching Method: Discussion Response to teaching: Verbalize understanding
--- NOTE | 2020-02-04 11:44 | HP.SP.DC ---
ST Discharge Summary - Discharged: Discharge: Marya Shoemaker is discharged from speech therapy at [facility] as of February 04, 2020 due lack of attendance and scheduled session. She was initial evaluated on 11/21/19. Her MBSS reported that she was able to be on a thin liquid/regular foods but the patient reported her ENT ordered nectar thicken liquids for her. She was instructed to use nectar if she was more comfortable using it. Patient was provided with swallow exercises to complete at home as she demonstrated independence during the evaluation. One session was scheduled as a follow up in one month if the patient feels she needs it but was requested to cancel if she did not want to attend. She did not cancel or attend that session. No further visits were scheduled. A copy of this discharge summary will be sent to his referring physician.
== END 2019-11-21 19:00 | disposition home or self-care (01) ==
LOC: SP 12:34
PROVIDERS: PCP Internal Medicine; Visit Provider Otolaryngology
DX: R13.10 Dysphagia, unspecified (principal)
CPT/HCPCS: 92610

== ENCOUNTER → 2019-12-04 15:40 | Outpatient (CLI) | payer MEDICARE, SELFPAY ==
[2019-10-25 11:23] VITALS: BMI 41.5
--- NOTE | 2019-12-04 15:00 | PET_ITS ---
EXAMINATION: FDG PET-CT INDICATIONS: A 79-year-old female with history of carcinoma of the breast presenting for restaging examination and evaluation of pulmonary nodularity. COMPARISON EXAMINATION: CT of the chest report-impression dated 05/24/2019 INDEX LESION SIZE SUV INTERPRETATION Left lower posterior lung-left lower lobe 22.6-mm (frame 169) 0.7 Quantitative criteria for viable neoplasm are not fulfilled, sequential radiologic investigation recommended TECHNIQUE: Following the intravenous administration of 12.02 mCi of F-18 deoxyglucose via the right hand, multiplanar image acquisitions of the neck, chest, abdomen and pelvis to level of mid thigh, obtained at one hour post radiopharmaceutical administration contemporaneously interpreted with the current CT of the neck, chest, abdomen and pelvis, to level of mid thigh, dated 12/04/[address] of the chest report-impression dated 05/24/2019 reveals: BLOOD GLUCOSE LEVEL:?? 104 mg/dl?HEIGHT:?65 inches?WEIGHT: 250 lbs. FINDINGS: 1. Subtle increased FDG distribution is defined in the left lower posterior lung-left lower lobe corresponding to a non-calcified pleural-based density demonstrated on CT of the chest dated 12/04/2019. The calculated maximal standard uptake value is 0.7. The maximal axial diameter of the corresponding density on review of CT of the chest dated 12/04/2019 is 22.6-mm (transverse). 2. Normal physiologic distribution of the radiopharmaceutical is apparent in the hepatic (3.7) and splenic parenchyma, both renal units, bladder and visualized intestinal tract. The visualized portion of the cerebral cortex demonstrate symmetric and preserved glucose metabolism. Prominent tracer concentration is observed in the laryngeal structures which appears associated with the cricopharyngeus musculature without evidence of soft tissue thickening most consistent with muscle tension artifact. There is an increase in tracer distribution noted in the right mid-lower abdominal mesentery associated with intestinal tract-ascending colon. Mild increased tracer distribution is noted in the intervertebral disc space to the left of the midline at the level of the first-second lumbar vertebrae associated with osteophyte formation most consistent with degenerative arthritis. Pertinent CT findings are as follows: CHEST: Coronary arterial calcification is observed. Atherosclerotic calcification is noted in the thoracic aorta with the ascending thoracic aorta demonstrating a maximal axial diameter of 44.2-mm. Surgical clips appear evident in the left chest wall-residual breast and axillary regions. Mediastinal soft tissue is ametabolic. Subcentimeter bilateral axillary soft tissue reveals no evidence of increased tracer uptake. There are no additional parenchymal densities-nodules noted in the right and left hemithorax with discernible increased FDG uptake. ABDOMEN AND PELVIS: The gallbladder is surgically absent. Cyst formation is visualized in the right-left kidneys. Calcification is manifest in the right renal unit. There is atherosclerotic calcification defined in the abdominal aorta without evidence of dilatation-aneurysm formation. Pelvic arterial calcification is demonstrated. Colonic diverticulosis is noted. Significant beam hardening artifact attributed to right and left hip arthroplasties is noted in the lower pelvic CT acquisition. Right-left inguinal soft tissue with fatty hilus is non-glucose avid. SKELETAL: Degenerative changes are noted in the cervical, thoracic and lumbar spine. There is diffuse demineralization identified throughout the axial skeletal structures. Right and left hip arthroplasties are defined. PET/PET/CT Tumor Base -Thigh Init IMPRESSION: 1. NEGATIVE EXAMINATION. There is no definitive quantitative scintigraphic evidence of recurrent-metastatic/viable neoplasm. 2. Subtle increased tracer concentration observed in the left lower posterior lung-left lower lobe does not fulfill quantitative criteria for viable neoplasm. (Curran et al, Annals of Internal Medicine, 138:724, 2003). 3. Metabolic and/or anatomic stability may be ensured in the left hemithorax pulmonary parenchymal abnormality with repeat FDG PET-CT of the thorax in 3-6 months. (Xiu, Journal of Nuclear Medicine 45:88, P2004 [facility], Seminars in Thoracic and Cardiovascular Surgery 14:292, 2002). 4. Facilitated radiopharmaceutical concentration observed in the right mid-lower abdominal mesentery associated with the ascending colon is most consistent with physiologic tracer distribution. If intraluminal soft tissue mass formation is a diagnostic consideration, correlation with CT of the abdomen and pelvis with oral and intravenous contrast is recommended. (Nabila et al, Journal of Nuclear Medicine, 30:S264, 2003). Electronic Signature Shane Govea D.O. Accurate Quantification of SUVs for this report are calculated using the exclusive [employer]. Electronically Signed: Shane Govea DO at 22:06 EDT Tel , Service support ,
== END ==
PROVIDERS: PCP Internal Medicine; Referring Provider Internal Medicine Pulmonary Disease; Visit Provider Internal Medicine Pulmonary Disease
DX: R91.8 Other nonspecific abnormal finding of lung field (principal); Z85.3 Personal history of malignant neoplasm of breast
CPT/HCPCS: 78815; A9552

== ENCOUNTER → 2020-02-07 12:13 | Outpatient (CLI) | payer MEDICARE, SELFPAY ==
[2020-02-07 09:39] VITALS: BMI 39.6
[2020-02-07 15:40] LABS: Absolute Lymphocyte Count 1.08 X10^3/uL (0.83-4.51); Absolute Neutrophil Count 7.1 X10^3/uL (2.0-7.7); Basophil# 0.04 X10^3/uL; Basophil% 0.4 % (0-1); Eosinophil# 0.15 X10^3/uL; Eosinophils% 1.6 % (0-5); Hematocrit 46.2 % (37-47); Hemoglobin 13.8 g/dL (12.0-15.0); Lymphocyte # 1.08 X10^3/ul (4.0); Lymphocyte % 11.4 % (19-41); Mean Corp Hgb Conc 29.9 g/dL (32-36); Mean Corpuscular Hgb 27.9 pg (27.0-32.0); Mean Corpuscular Volume 93.3 fL (81-99); Monocyte# 1.03 X10^3/uL; Monocyte% 10.8 % (0-10); NRBC Flagged by Analyzer 0 % (0-5); Neutrophil # 7.12 X10^3/uL (2.7-7.7); Neutrophil % 74.9 % (47-70); Platelet Count 238 K/mm3 (150-450); RBC Distribution Width CV 13.8 % (11.6-14.6); RBC Distribution Width SD 47.3 fl (35.1-43.9); Red Blood Count 4.95 M/mm3 (4.2-5.4); White Blood Count 9.5 K/mm3 (4.4-11.0)
[2020-02-07 16:06] LABS: Anion Gap 4 (5-15); BUN 35 mg/dL (7-18); BUN/Creat Ratio 20.6 RATIO (10-20); Calcium,Total 9.3 mg/dL (8.5-10.1); Chloride 102 mmol/L (98-107); EST Glomerular Filtration Rate 31 mL/min (>60); Est Glom Filt Rate - Afr Amer 37 mL/min (>60); Glucose 115 mg/dL (74-106); Potassium 4.1 mmol/L (3.5-5.1); Sodium Level 137 mmol/L (136-145); Thyroid Stim Hormone (TSH) 0.52 uIU/mL (0.358-3.74)
[2020-02-07 16:16] LABS: BNP,B-Type NATRIURETIC PEPTIDE 11.5 pg/mL (0-100)
== END ==
PROVIDERS: PCP Internal Medicine; Referring Provider Internal Medicine Cardiovascular Disease; Visit Provider Internal Medicine Cardiovascular Disease
DX: R05 Cough (principal); R00.2 Palpitations; R06.00 Dyspnea, unspecified
CPT/HCPCS: 36415; 80048; 83880; 84443; 85025

== ENCOUNTER 2020-02-16 13:29 | Emergency (ER) | payer MEDICARE, SELFPAY ==
[2020-02-07 09:39] VITALS: BMI 39.6
[2020-02-16 13:30] VITALS: BP 144/84; PULSE 95; RESP 17; TEMP 36.4; O2SAT 99; BMI 40.2
--- NOTE | 2020-02-16 13:52 | EKG12_ITS ---
Test Reason : PALPS Blood Pressure : / mmHG Vent. Rate : 086 BPM Atrial Rate : 086 BPM P-R Int : 180 ms QRS Dur : 102 ms QT Int : 402 ms P-R-T Axes : 034 -40 013 degrees QTc Int : 481 ms Normal sinus rhythm Left axis deviation Low voltage QRS Abnormal ECG Confirmed by DEBRA MEJIA, DANK ([id number]), assistant editor KENNETH PAZ ([id number]) on 02/18/2020 9:40:43 AM Referred By: CONSTANCE Confirmed By:DANK RICHARDSON MD
[2020-02-16 13:54] VITALS: O2SAT 94
[2020-02-16] MEDS: Aspirin 81 MG TAB.CHEW 324 MG PO (14:14)
--- NOTE | 2020-02-16 14:14 | RAD_ITS ---
STUDY: X-RAY CHEST REASON FOR EXAM: Female, 79 years old. Shortness of breath, palpitations, dizziness. TECHNIQUE: Single frontal view of the chest. COMPARISON: 05/05/2018 FINDINGS: Hyperexpansion with diffuse interstitial pattern unchanged. There is no demonstrated pleural abnormality. Stable cardiomegaly. Normal mediastinum and horacio. Normal visualized pulmonary arteries. Aortic tortuosity with calcification unchanged. Normal visualized thoracic spine. Normal visualized ribs, clavicles, and shoulders. There is no demonstrated abnormality of the visualized soft tissue structures of the upper abdomen. RAD/Chest 1 View (Portable) IMPRESSION: Stable chest with no acute findings. Electronically Signed: Rajinder Martinez MD at 14:37 EST , Service support ,
[2020-02-16 14:22] LABS: Absolute Lymphocyte Count 0.64 X10^3/uL (0.83-4.51); Basophil# 0.03 X10^3/uL; Basophil% 0.5 % (0-1); Eosinophil# 0.19 X10^3/uL; Hematocrit 45.6 % (37-47); Hemoglobin 13.7 g/dL (12.0-15.0); Lymphocyte # 0.64 X10^3/ul (4.0); Mean Corpuscular Hgb 27.8 pg (27.0-32.0); Mean Corpuscular Volume 92.5 fL (81-99); Monocyte# 0.51 X10^3/uL; Monocyte% 7.9 % (0-10); NRBC Flagged by Analyzer 0 % (0-5); Neutrophil # 4.97 X10^3/uL (2.7-7.7); Neutrophil % 77.2 % (47-70); Platelet Count 238 K/mm3 (150-450); RBC Distribution Width CV 13.7 % (11.6-14.6); RBC Distribution Width SD 46.6 fl (35.1-43.9); Red Blood Count 4.93 M/mm3 (4.2-5.4); White Blood Count 6.4 K/mm3 (4.4-11.0)
--- NOTE | 2020-02-16 14:23 | ED.DCSUM_ITS ---
- ER Visit Summary Date of Service: 02/16/20 Chief Complaint: Palpitations History of Present Illness: The patient is a [address] Anguiano, Dr. Tripp, and Dr. Lama. She reports that she has had palpitations for approximately 2 weeks. This is her intermittent episodes of less approximately 2 minutes at a time. She reports that she gets lightheaded with these. She is not passed out. She denies any chest pain, pressure, or tightness with these. She reports that her shortness of breath is worse than usual. She denies any sick contacts. She does wear a mask. She does admit to fatigue. She denies any cough, fever, chills, or other complaints. Physical Examination: Vitals: Stable. Afebrile. General: Well-nourished and well-developed. Head: Normocephalic atraumatic. Neck: Supple, no lymphadenopathy. No JVD. Nontender. Cardiovascular: Regular rate and rhythm. 2 out of 6 systolic murmur. Respiratory: No respiratory distress. Clear to auscultation bilaterally. Abdominal: Soft, nontender, nondistended, normal bowel sounds. No guarding, rebound, or peritoneal signs. Back: Nontender. Extremities: Nontender, 1+ pitting edema on the left which is chronic per patient Skin: Normal color, no rash. Neurologic: Alert and oriented ?3. Cranial nerves II through XII are intact. Normal strength and sensation. Psych: Normal affect. Test Results: EKG is sinus at 86. Is unchanged later this month. CBC shows segmented neutrophils of 77 lymphocytes of 10. Chem-7 shows a glucose 145, BUN 34, creatinine 1.77. Creatinine has been 1.17?1.70 in 2019. INR is 1.7. TSH is 0.41. Troponin is negative. D-dimer is 0.95. However, this was ordered prior to realizing patient is on Coumadin. I do not think that her symptoms are from a pulmonary embolus with an INR 4.[address] was not ordered. Clinical Impression(s) from Imaging Studies Chest X-Ray 02/16/20 14:14 IMPRESSION: Stable chest with no acute findings. Electronically Signed: Rajinder Martinez MD at 14:37 EST , Service support , Emergency Department Course and Treatment: Patient was given a dose of aspirin p.o. She is resting comfortably. Treatment Plan: The patient was discussed with Dr. Benitez. She is instructed to stop her spironolactone. She will have a 24-hour Holter monitor placed. She is to hold her Coumadin today and get her INR checked in 6 days. Follow-up with Dr. Benitez this week for further evaluation. Return to the emergency department for any worsening symptoms. Disposition: To home in improved and stable condition. Impression: 1. Palpitations. 2. Chronic renal insufficiency. 3. Supratherapeutic INR. This note was generated with [employer] dictation software. It may contain incorrect words, spelling, and punctuation that were not noted in review of the chart prior to signing ED Disposition - Plan for ED Patient: Instructions: ED Palpitations Referrals: Ai Anguiano MD [Primary Care Provider] - Alex Lama MD [STAFF PHYSICIAN] - 1 Week Additional Instructions: Stop taking your spironolactone. Do not take your Coumadin today and then begin your dosing as previously instructed. Get your INR checked again on February 21. Then Dr. Lama's office will contact you for further dosing of your Coumadin.
[2020-02-16 14:27] LABS: International Normalized Ratio 4.7
[2020-02-16 14:35] LABS: D-Dimer Quantitative (DVT/PE) 0.95 FEU/ug/m (0.27-0.49)
[2020-02-16 14:39] LABS: Anion Gap 5 (5-15); BUN 34 mg/dL (7-18); BUN/Creat Ratio 19.2 RATIO (10-20); Calcium,Total 9.5 mg/dL (8.5-10.1); Chloride 105 mmol/L (98-107); Creatinine, Serum 1.77 mg/dL (0.55-1.02); EST Glomerular Filtration Rate 30 mL/min (>60); Est Glom Filt Rate - Afr Amer 36 mL/min (>60); Estimated Creatinine Clearance 23.95 ml/min; Glucose 145 mg/dL (74-106); Potassium 3.9 mmol/L (3.5-5.1); Sodium Level 140 mmol/L (136-145); Thyroid Stim Hormone (TSH) 0.41 uIU/mL (0.358-3.74)
[2020-02-16 15:47] VITALS: BP 138/90; PULSE 88; RESP 16; O2SAT 94
== END 2020-02-16 16:02 | disposition home or self-care (01) ==
LOC: ED 14:28
PROVIDERS: Emergency Provider Emergency Medicine; PCP Internal Medicine
DX: R00.2 Palpitations (principal); R79.1 Abnormal coagulation profile; N18.9 Chronic kidney disease, unspecified; Z79.01 Long term (current) use of anticoagulants; R53.83 Other fatigue; R06.02 Shortness of breath; R42 Dizziness and giddiness; E11.9 Type 2 diabetes mellitus without complications; I10 Essential (primary) hypertension; E78.00 Pure hypercholesterolemia, unspecified
CPT/HCPCS: 71045; 80048; 84443; 84484; 85025; 85379; 85610; 87426; 93005; 93225; 93226; 99285; A4216

== ENCOUNTER → 2020-02-16 15:39 | Outpatient (CLI) | payer MEDICARE, SELFPAY ==
[2020-02-16 13:30] VITALS: BMI 40.2
== END ==
PROVIDERS: PCP Internal Medicine; Visit Provider Emergency Medicine
DX: R00.2 Palpitations (principal)

== ENCOUNTER → 2020-02-19 13:03 | Outpatient (CLI) | payer MEDICARE, SELFPAY ==
[2020-02-07 09:39] VITALS: BMI 39.6
[2020-02-16 13:30] VITALS: BMI 40.2
--- NOTE | 2020-02-19 13:06 | ECHOCS_ITS ---
Reason For Study: CHF Procedure This was a 2D Doppler, Color Flow transthoracic echocardiogram. The study was technically difficult. Due to body habitus. Contrast injection was performed. Exam performed in department. Left Ventricle Normal LV size. Left ventricular systolic function is normal. The estimated ejection fraction is 65 %. Stage 1 diastolic dysfunction. No regional wall motion abnormalities noted. Right Ventricle Normal RV size. Atria Normal left atrium. Normal right atrium. Mitral Valve Normal mitral valve. Tricuspid Valve Normal tricuspid valve. Aortic Valve Trisinus/trileaflet aortic valve. Mild (1+) aortic valve insufficiency. Pulmonic Valve The pulmonic valve is not well visualized. Great Vessels Mild to moderately dilated aortic root. The pulmonary artery is normal size. Normal inferior vena cava. Pericardium/Pleural No pericardial effusion. Medication 22 gauge I.V. with prn adaptor inserted into right arm. Diluted definity 3.0ml given slow IV push to enhance endocardial definition. MMode/2D Measurements & Calculations LVIDd: 4.2 cm IVSd: 1.0 cm Ao root diam: 4.1 cm LVIDs: 3.0 cm LVPWd: 0.98 cm FS: 29.3 % LAV(MOD-bp): 29.8 ml LA A4 area: 12.8 cm2 LA dimension(2D): 3.9 cm LAV(MOD-bp) Indexed: 14.0 ml/m2 LAV(MOD-sp2): 29.7 ml LAV(MOD-sp4): 29.4 ml RA A4 area: 12.2 cm2 Doppler Measurements & Calculations MV E max rishi: 42.3 cm/sec Lat Peak E' Rishi: 7.7 cm/sec Med Peak E' Rishi: 5.9 cm/sec MV A max rishi: 109.3 cm/sec E/E' lat: 5.5 E/E' med: 7.2 MV E/A: 0.39 Ao V2 max: 117.5 cm/sec LV V1 max: 89.4 cm/sec PA V2 max: 108.6 cm/sec Ao max P.5 mmHg LV V1 max P.2 mmHg TR max rishi: 218.6 cm/sec TR max P.1 mmHg Interpretation Summary Normal LV size. Left ventricular systolic function is normal. The estimated ejection fraction is 65 %. Stage 1 diastolic dysfunction. Contrast injection was performed. Ordering Physician: Alex Lama Referring Physician: Ai Anguiano Performed By: Marybel Singleton, JEAN-PIERRECS, RVT
== END ==
PROVIDERS: PCP Internal Medicine; Referring Provider Internal Medicine Cardiovascular Disease; Visit Provider Internal Medicine Cardiovascular Disease
DX: R00.2 Palpitations (principal); I50.9 Heart failure, unspecified
CPT/HCPCS: 93306; Q9957; A4216; C8929

== ENCOUNTER → 2020-05-28 13:01 | Outpatient (CLI) | payer MEDICARE, SELFPAY ==
[2019-10-25 11:23] VITALS: BMI 41.5
--- NOTE | 2020-05-28 13:11 | CT_ITS ---
STUDY: CT CHEST WITHOUT CONTRAST REASON FOR EXAM: Female, 79 years old. PULM NODULE. Follow-up examination. RADIATION DOSAGE (If Supplied By Facility): CTDIvol = ( 19.77 ) mGy, DLP = ( 721.11 ) mGycm TECHNIQUE: Transaxial imaging was performed without the administration of intravenous contrast material. Multiplanar coronal and sagittal images were reformatted. Individualized dose optimization techniques were used for this CT. COMPARISON: Comparison is made with prior CT scan of the thorax dated 04/26/2012. FINDINGS: 2 mm calcified granuloma in the lateral aspect of the right upper lobe. Calcified granulomas in the posterolateral aspect of the right lower lobe. There is a 1.9 cm x 1 cm x 1.9 cm pleural-based irregular heterogeneous nodule in the posterior-lateral aspect of the left upper lobe. This most likely represents a focal area of scarring and possible bronchiectasis. Minimal scarring at the lung bases as well as the right middle lobe. There is no demonstrated pleural abnormality. There are calcifications of the coronary arteries. There are multiple small lymph nodes within the mediastinum, which are normal in size and morphology most compatible with reactive lymph hyperplasia. Normal hilar regions. Normal unenhanced pulmonary arteries. There is atherosclerotic calcification of the aortic arch with tortuosity and elongation of the aortic arch and descending thoracic aorta. There are multi-level degenerative changes of the thoracic spine. Small bilateral renal cysts. 4.8 mm nonobstructing calculus in the midportion of the right kidney. Status post cholecystectomy. CT/Chest without Contrast IMPRESSION: 1.9 cm x 1 cm x 1.9 cm pleural-based irregular heterogeneous nodule in the posterolateral aspect of the left upper lobe as described. This most likely represents a focal area of scarring. Six-month follow-up is recommended. Electronically Signed: Rogelio Oleary MD at 14:05 EST , Service support ,
== END ==
PROVIDERS: PCP Internal Medicine; Referring Provider Internal Medicine Pulmonary Disease; Visit Provider Internal Medicine Pulmonary Disease
DX: R91.1 Solitary pulmonary nodule (principal)
CPT/HCPCS: 71250

== ENCOUNTER 2020-09-13 12:19 | Emergency (ER) | payer MEDICARE, SELFPAY ==
[2020-07-22 13:49] VITALS: BMI 42.0
[2020-09-13 12:21] VITALS: BP 134/98; PULSE 73; RESP 16; TEMP 36.1; O2SAT 98; BMI 41.2
--- NOTE | 2020-09-13 13:44 | EDS_ITS ---
HPI History of Present Illness Chief Complaint: Wound Informant: patient Onset/Context/Timing Onset: Yesterday Context: Gradual Onset Timing: Continuous Quality of Pain: - (Clear watery drainage) Location: Left leg Worsened by: Nothing Relieved by: Nothing Associated Symptoms Associated Symptoms: Negative for Parasthesia and Weakness Narrative Narrative: Patient presents with increased drainage from the chronic wound on her left lower leg. Patient states she saw her mold stacker who put an Unna boot on her foot. Patient states she was told to not get it wet. Patient states she has been having increased clear and watery drainage from the wound. Patient states that she would like the Unna boot changed. Patient states nothing makes the drainage worse and nothing makes it better. Patient admits to chronic neck and back pain. Patient denies any fevers or chills. [facility] Medical History Anxiety Breast cancer, left breast Cellulitis of right lower extremity Chronic obstructive pulmonary disease Closed head injury COPD (chronic obstructive pulmonary disease) Debility Depression Diabetes mellitus Diabetes mellitus type 2 in obese Diabetes mellitus, type II Essential (primary) hypertension Gait difficulty History of pulmonary embolism Hypercoagulable state Hyperlipidemia Hypothyroidism Insomnia Insomnia Left ureteral stone Lupus anticoagulant disorder Morbid obesity Obesity Obstructive sleep apnea YOLY (obstructive sleep apnea) Osteoarthritis Restless leg syndrome Thoracic aortic aneurysm Traumatic hematoma of right foot Type 2 diabetes mellitus with diabetic polyneuropathy Wound of right foot Home Medications simvastatin 40 mg PO QHS 01/24/14 [History Last Taken 12/09/18 21:00] anastrozole 1 mg PO DAILY 03/17/15 [History Last Taken 12/09/18 21:00] bupropion HCl 150 mg PO DAILY 04/22/18 [History Last Taken 12/09/18 21:00] acetaminophen 1,000 mg PO Q6H PRN PRN tab 01/02/19 [Rx Last Taken Unknown] clonazepam 1 mg PO DAILY PRN PRN #14 tab 01/02/19 [Rx Last Taken Unknown] ergocalciferol (vitamin D2) 50,000 unit PO Q7D cap 01/02/19 [Rx Last Taken 07/05/19 08:00] fluticasone furoate-vilanterol 1 ea IH DAILY 07/07/19 [History Last Taken Unknown] potassium chloride 10 meq PO DAILY 07/07/19 [History Last Taken Unknown] warfarin 1.5 mg PO MOWEFR #0 07/08/19 [Rx Last Taken Unknown] warfarin 3 mg PO SUTUTHSA #0 07/08/19 [Rx Last Taken Unknown] fexofenadine 180 mg tablet 180 mg PO DAILY 10/25/19 [History Last Taken Unknown] levothyroxine 112 mcg tablet 112 mcg PO DAILY tab 10/25/19 [History Last Taken Unknown] tramadol 50 mg tablet 50 mg PO BID PRN 10/25/19 [History Last Taken Unknown] trazodone 150 mg tablet 150 mg PO DAILY tab 10/25/19 [History Last Taken Unknown] calcitriol 0.25 mcg PO DAILY 02/16/20 [History Last Taken Unknown] calcium citrate (bulk) 1,200 mg PO DAILY 02/16/20 [History Last Taken Unknown] albuterol sulfate 90 mcg/actuation aerosol inhaler 2 puff INHALATION Q6H PRN 07/22/20 [History Last Taken Unknown] denosumab 60 mg/mL subcutaneous syringe mg SUBCUT 07/22/20 [History Last Taken Unknown] montelukast 10 mg tablet 10 mg PO DAILY tab 07/22/20 [History Last Taken Unknown] oxybutynin chloride 10 mg tablet,extended release 24 hr 10 mg PO DAILY tab [History Last Taken Unknown] prednisone 10 mg tablet 10 mg PO tab 07/22/20 [History Last Taken Unknown] furosemide 40 mg tablet 20 mg PO DAILY #90 tab 07/29/20 [Rx Last Taken Unknown] Allergy/AdvReac Type Severity Reaction Status Date / Time acetaminophen [From Vicodin] AdvReac Unknown Verified 09/13/20 12:21 hydrocodone bitartrate AdvReac Upset Verified 09/13/20 12:21 [From Vicodin] Stomach Family History (Updated 07/22/20 @ 13:49 by Layne Pride) Mother CHF (congestive heart failure) Brother Diabetes Heart disease Myocardial infarction Father Myocardial infarction Heart disease Surgical History History of cataract extraction History of inferior vena caval filter placement History of left hip replacement History of lumpectomy History of open reduction and internal fixation (ORIF) procedure History of right hip replacement History of tonsillectomy History of total left knee replacement Social History Smoking Status: Never smoker ROS ROS ED Constitutional Constitutional ED: Denies chills or fever(s) Eyes Eyes: Denies blurry vision or change in vision ENT ENT ED: Denies rhinorrhea or sore throat Cardiovascular Cardiovascular: Denies chest pain or palpitations Respiratory/Chest Respiratory/Chest: Denies cough or dyspnea Gastrointestinal Gastrointestinal: Denies nausea or vomiting Genitourinary Genitourinary ED: Denies dysuria or hematuria Musculoskeletal Musculoskeletal: Denies back pain or neck pain Integumentary Denies abscess or rash Neurologic Neurologic: Denies headache(s) or weakness Allergic/Immunologic Allergic/Immunologic ED: Denies mouth swelling or urticaria EXAM Physical Exam Const Vital Signs: 09/13/20 12:21 Temperature 96.9 F L Temperature Source Temporal Pulse Rate 73 Respiratory Rate 16 Blood Pressure 134/98 H Blood Pressure Mean 110 Pulse Ox 98 Oxygen Delivery Method Room Air Positive well nourished, well developed and obese General Appearance ED: well developed Nutritional Appearance: obese HEENT Reports moist mucous membranes Neck supple and no JVD GI normal to inspection, nondistended, normoactive bowel sounds Extremity Extremity Narrative: There is superficial ulceration to the anterior lower leg. There is some serous drainage. There is no purulent drainage. There is no erythema. There is no warmth. There is no abscess formation. General Extremety ED: Yes edema; Negative for tenderness General Extremity: edema Neuro oriented x3, CN's II-XII intact bilaterally and no sensory deficits noted Sensorium / Orientation: alert Motor Exam: strength 5/5 throughout Psych mental status grossly normal Skin no rashes or lesions noted MDM MDM MDM Narrative Medical decision making narrative: The Unna boot was removed. A Xeroform and gauze dressing was applied. Patient was instructed to keep the wound clean. Patient was instructed to follow-up with her primary care physician in 3 to 5 days for reevaluation. Patient understood and was agreeable with the plan. All questions were answered. Discharge Plan Triage Chief Complaint: Wound ED Provider: Abelardo Huerta Dx/Rx/DC Orders Clinical Impression: Leg wound, left Instructions: ED Wound Care Prescriptions: No Action levothyroxine 112 mcg tablet 112 mcg PO DAILY RF: 0 trazodone 150 mg tablet 150 mg PO DAILY RF: 0 fexofenadine [Thais Allergy] 180 mg tablet 180 mg PO DAILY RF: 0 tramadol 50 mg tablet 50 mg PO BID PRN (Reason: Pain 1-10 Or Fever) RF: 0 albuterol sulfate 90 mcg/actuation HFA aerosol inhaler 2 puff inhalation Q6H PRNRF: 0 Prolia 60 mg/mL syringe subcut RF: 0 montelukast 10 mg tablet 10 mg PO DAILY RF: 0 oxybutynin chloride 10 mg tablet extended release 24hr 10 mg PO DAILY RF: 0 prednisone 10 mg tablet 10 mg PO RF: 0 simvastatin 40 MG tablet 40 mg PO QHS RF: 0 anastrozole 1 MG tablet 1 mg PO DAILY RF: 0 bupropion HCl 150 MG tablet extended release 24 hr 150 mg PO DAILY RF: 0 acetaminophen 500 MG tablet 1,000 mg PO Q6H PRN PRN (Reason: Pain) RF: 0 ergocalciferol (vitamin D2) 50,000 UNIT capsule 50,000 unit PO Q7D RF: 0 clonazepam 1 MG tablet 1 mg PO DAILY PRN PRN (Reason: restless leg syndrome) Qty: 14 RF: 0 potassium chloride 10 MEQ tablet 10 meq PO DAILY RF: 0 fluticasone furoate-vilanterol 1 EACH blister with device 1 ea IH DAILY RF: 0 warfarin 3 MG tablet 3 mg PO SUTUTHSA Qty: 0 RF: 0 warfarin 1 MG tablet 1.5 mg PO MOWEFR Qty: 0 RF: 0 calcitriol 0.25 MCG capsule 0.25 mcg PO DAILY RF: 0 calcium citrate (bulk) 100 GM powder 1,200 mg PO DAILY RF: 0 furosemide [Lasix] 40 mg tablet 20 mg PO DAILY Qty: 90 RF: 3 Primary Care Provider: Ai Anguiano Referrals: Ai Anguiano MD [Primary Care Provider] - 3-5 Days Disposition Disposition: Home, self care
[2020-09-13 14:34] VITALS: BP 144/104; PULSE 79; RESP 16; O2SAT 98
== END 2020-09-13 14:36 | disposition home or self-care (01) ==
PROVIDERS: Emergency Provider Emergency Medicine; PCP Internal Medicine
DX: L97.929 Non-pressure chronic ulcer of unspecified part of left lower leg with unspecified severity (principal); E66.9 Obesity, unspecified; M54.2 Cervicalgia; M54.9 Dorsalgia, unspecified; G89.29 Other chronic pain; E03.9 Hypothyroidism, unspecified; E11.42 Type 2 diabetes mellitus with diabetic polyneuropathy; E78.5 Hyperlipidemia, unspecified; F32.9 Major depressive disorder, single episode, unspecified; F41.9 Anxiety disorder, unspecified; G47.33 Obstructive sleep apnea (adult) (pediatric); I10 Essential (primary) hypertension; G47.00 Insomnia, unspecified; J44.9 Chronic obstructive pulmonary disease, unspecified; Z79.01 Long term (current) use of anticoagulants; Z79.52 Long term (current) use of systemic steroids; Z86.711 Personal history of pulmonary embolism; Z85.3 Personal history of malignant neoplasm of breast
CPT/HCPCS: 99283

== ENCOUNTER → 2020-09-17 16:48 | Outpatient (CLI) | payer MEDICARE, SELFPAY ==
[2020-09-13 12:21] VITALS: BMI 41.2
== END ==
PROVIDERS: PCP Internal Medicine; Visit Provider Dermatology
DX: I87.2 Venous insufficiency (chronic) (peripheral) (principal); I89.0 Lymphedema, not elsewhere classified
CPT/HCPCS: 87070; 87077; 87186; 87205

== ENCOUNTER 2020-09-23 08:53 | Emergency (ER) | payer MEDICARE, SELFPAY ==
[2020-09-23 08:54] VITALS: BP 132/76; PULSE 104; RESP 18; TEMP 36.6; O2SAT 100; BMI 34.4
--- NOTE | 2020-09-23 08:59 | RAD_ITS ---
STUDY: X-RAY CHEST REASON FOR EXAM: Female, 80 years old. Chest pain TECHNIQUE: Single AP portable view of the chest. COMPARISON: Comparison is made with prior study dated 02/16/2020. FINDINGS: EKG electrodes are seen. The lungs are clear and expanded. There is no demonstrated pleural abnormality. There is moderate cardiac enlargement. Normal mediastinum and horacio. Normal visualized pulmonary arteries. There is atherosclerotic tortuosity of the aortic arch and descending thoracic aorta. There are diffuse degenerative changes of the visualized thoracic spine. Normal visualized ribs, clavicles, and shoulders. There is no demonstrated abnormality of the visualized soft tissue structures of the upper abdomen. RAD/Chest 1 View (Portable) IMPRESSION: Cardiomegaly. Electronically Signed: Rogelio Oleary MD at 9:54 EDT , Service support ,
--- NOTE | 2020-09-23 08:59 | EKG12_ITS ---
Test Reason : CP Blood Pressure : / mmHG Vent. Rate : 091 BPM Atrial Rate : 091 BPM P-R Int : 158 ms QRS Dur : 096 ms QT Int : 382 ms P-R-T Axes : 029 -31 023 degrees QTc Int : 469 ms Normal sinus rhythm Left axis deviation Possible Anterior infarct , age undetermined Abnormal ECG Confirmed by DEBRA MEJIA, DANK ([id number]), content editor KENNETH PAZ ([id number]) on 09/24/2020 10:35:05 AM Referred By: MR Confirmed By:DANK RICHARDSON MD
[2020-09-23 09:13] VITALS: BP 148/89; PULSE 89; RESP 20; O2SAT 97
--- NOTE | 2020-09-23 09:13 | EDS_ITS ---
HPI History of Present Illness Chief Complaint: Chest Pain Informant: patient and spouse/S.O. Narrative Narrative: 80-year-old female presents to the emergency room for evaluation of chest pain. Patient states that she has had episodic lower sternal pain for the past 2 days. When the pain comes on she notes that it will stay for about 30 minutes. She feels it during the day. She notes pain in her right arm that is reproducible with touch. She notes that she has had some pain in her jaw. She notes an increase in her chronic shortness of breath. No change in her chronic leg swelling. She is on Coumadin for prior DVT PE due to lupus anticoagulant disorder. She states her last INR was 2.1. She has never been diagnosed with coronary artery disease. Last year she had a Holter monitor and echocardiogram that showed slightly dilated aortic root at 4.2 cm. Her nursing department chairperson is Dr. Lama. She denies any belching or indigestion. New medication includes Cipro for which she is taking for left lower leg cellulitis. [facility] Medical History Anxiety Breast cancer, left breast Cellulitis of right lower extremity Closed head injury Debility Depression Diabetes mellitus type 2 in obese Diabetes mellitus, type II Dyspnea Essential (primary) hypertension Gait difficulty History of pulmonary embolism Hypercoagulable state Hyperlipidemia Hypothyroidism Insomnia Left ureteral stone Lupus anticoagulant disorder Morbid obesity Obesity Obstructive sleep apnea YOLY (obstructive sleep apnea) Osteoarthritis Restless leg syndrome Thoracic aortic aneurysm Traumatic hematoma of right foot Type 2 diabetes mellitus with diabetic polyneuropathy Wound of right foot Home Medications simvastatin 40 mg PO QHS 01/24/14 [History Last Taken 12/09/18 21:00] anastrozole 1 mg PO DAILY 03/17/15 [History Last Taken 12/09/18 21:00] bupropion HCl 150 mg PO DAILY 04/22/18 [History Last Taken 12/09/18 21:00] acetaminophen 1,000 mg PO Q6H PRN PRN tab 01/02/19 [Rx Last Taken Unknown] clonazepam 1 mg PO DAILY PRN PRN #14 tab 01/02/19 [Rx Last Taken Unknown] ergocalciferol (vitamin D2) 50,000 unit PO Q7D cap 01/02/19 [Rx Last Taken 07/05/19 08:00] fluticasone furoate-vilanterol 1 ea IH DAILY 07/07/19 [History Last Taken Unknown] potassium chloride 10 meq PO DAILY 07/07/19 [History Last Taken Unknown] warfarin 1.5 mg PO MOWEFR #0 07/08/19 [Rx Last Taken Unknown] warfarin 3 mg PO SUTUTHSA #0 07/08/19 [Rx Last Taken Unknown] fexofenadine 180 mg tablet 180 mg PO DAILY 10/25/19 [History Last Taken Unknown] levothyroxine 112 mcg tablet 112 mcg PO DAILY tab 10/25/19 [History Last Taken Unknown] tramadol 50 mg tablet 50 mg PO BID PRN 10/25/19 [History Last Taken Unknown] trazodone 150 mg tablet 150 mg PO DAILY tab 10/25/19 [History Last Taken Unknown] calcitriol 0.25 mcg PO DAILY 02/16/20 [History Last Taken Unknown] calcium citrate (bulk) 1,200 mg PO DAILY 02/16/20 [History Last Taken Unknown] albuterol sulfate 90 mcg/actuation aerosol inhaler 2 puff INHALATION Q6H PRN 07/22/20 [History Last Taken Unknown] denosumab 60 mg/mL subcutaneous syringe mg SUBCUT 07/22/20 [History Last Taken Unknown] montelukast 10 mg tablet 10 mg PO DAILY tab 07/22/20 [History Last Taken Unknown] oxybutynin chloride 10 mg tablet,extended release 24 hr 10 mg PO DAILY tab 07/22/20 [History Last Taken Unknown] prednisone 10 mg tablet 10 mg PO tab 07/22/20 [History Last Taken Unknown] furosemide 40 mg tablet 20 mg PO DAILY #90 tab 07/29/20 [Rx Last Taken Unknown] Allergy/AdvReac Type Severity Reaction Status Date / Time acetaminophen [From Vicodin] AdvReac Unknown Verified 09/23/20 08:55 hydrocodone bitartrate AdvReac Upset Verified 09/23/20 08:55 [From Vicodin] Stomach Family History Mother CHF (congestive heart failure) Brother Diabetes Heart disease Myocardial infarction Father Myocardial infarction Heart disease Surgical History History of cataract extraction History of inferior vena caval filter placement History of left hip replacement History of lumpectomy History of open reduction and internal fixation (ORIF) procedure History of right hip replacement History of tonsillectomy History of total left knee replacement Social History Smoking Status: Never smoker ROS ROS ED Constitutional Constitutional ED: Denies chills or weight loss Eyes Eyes: Denies change in vision or diplopia ENT ENT ED: Denies ear pain, rhinorrhea or sore throat Cardiovascular Cardiovascular: Reports chest pain; Denies orthopnea, palpitations or racing heartbeat Respiratory/Chest Respiratory/Chest: Reports dyspnea; Denies cough or orthopnea Gastrointestinal Gastrointestinal: Denies abdominal pain, diarrhea, nausea or vomiting Genitourinary Genitourinary ED: Denies dysuria, hematuria or urinary frequency Musculoskeletal Musculoskeletal: Reports other Details: Chronic leg swelling ; Denies arthralgias or myalgias Integumentary Reports other Details: Cellulitis left leg ; Denies abscess or rash Neurologic Neurologic: Denies headache(s) or weakness Psychiatric Psychiatric: Denies anxiety, depression, suicidal ideation or suicidal thoughts Endocrine Endocrinology: Denies polydipsia, polyphagia or polyuria Allergic/Immunologic Allergic/Immunologic ED: Denies mouth swelling, tongue swelling or urticaria EXAM Physical Exam Const Vital Signs: 09/23/20 08:54 09/23/20 09:13 09/23/20 10:33 Temperature 97.9 F Temperature Source Temporal Pulse Rate 104 H 89 79 Respiratory Rate 18 20 H 16 Respiratory Effort Short of Breath Labored Blood Pressure 132/76 H 148/89 H 151/86 H Blood Pressure Mean 94 108 107 Pulse Ox 100 97 96 Oxygen Delivery Method Room Air Room Air Room Air 09/23/20 11:06 Temperature Temperature Source Pulse Rate 78 Respiratory Rate 13 Respiratory Effort Blood Pressure 141/82 H Blood Pressure Mean 101 Pulse Ox 97 Oxygen Delivery Method Positive well nourished, well developed and obese General Appearance ED: well developed; Negative for pallor Nutritional Appearance: obese HEENT Reports normocephalic, head/scalp atraumatic and moist mucous membranes Eyes PERRL and EOMs intact bilaterally Neck no lymphadenopathy, supple and no JVD Resp normal respiratory effort and clear to auscultation bilaterally Cardio regular rate, regular rhythm and no murmurs GI normal to inspection, nondistended, normoactive bowel sounds and non-tender Palpation: soft Back/Spine no CVA tenderness and normal ROM Extremity Extremity Narrative: Left greater than right leg swelling (which is chronic). There is some mild erythema on the left leg. General Extremety ED: Yes edema General Extremity: edema Neuro oriented x3 and CN's II-XII intact bilaterally Sensorium / Orientation: alert Motor Exam: strength 5/5 throughout Psych mental status grossly normal Mood & Affect: Negative for depressed or tearful Skin Skin Narrative: See extremity exam General Skin Exam: Negative for pallor Heart Score History: Slightly/Non-Suspicious ECG: Normal Age: >/= 65 years Risk Factors: >/= 3 Risk Factors or History of CAD Troponin: </= Normal Limit Score: 4 MDM MDM MDM Narrative Medical decision making narrative: Patient's INR is low at 1.5. With her history of blood clots a CTA was performed and does not demonstrate any dissection or pulmonary embolism. 2 sets of heart enzymes negative. She is had no events on the monitors. At this point I think the patient can be safely discharged home with instructions to follow-up if not improving return if worsening or concerns. Lab Data Attestation: I reviewed the patient's lab results. Labs: Laboratory Results - last 24 hr 09/23/20 09/23/20 09/23/20 09:08 09:08 09:08 WBC 8.5 RBC 4.59 Hgb 13.1 Hct 42.4 MCV 92.4 MCH 28.5 MCHC 30.9 L RDW Std Deviation 48.6 H RDW Coeff of Mona 14.5 Plt Count 181 MPV 8.9 Neut % (Auto) Not Reportable Absolute Neuts (auto) 6.1 Absolute Lymphs (auto) 1.95 Total Counted 100 Neutrophils % (Manual) 71 H Band Neutrophils % 1 Lymphocytes % (Manual) 23 Monocytes % (Manual) 4 Basophils % (Manual) 1 Platelet Estimate ADEQUATE RBC Morphology NORM C+C PT 17.2 H INR 1.5 APTT 27.9 Sodium 139 Potassium 4.1 Chloride 103 Carbon Dioxide 25.0 Anion Gap 11 BUN 26 H Creatinine 1.42 H Estim Creat Clear Calc 29.38 Est GFR (MDRD) Af Amer 46 L Est GFR (MDRD) Non-Af 38 L BUN/Creatinine Ratio 18.3 Glucose 141 H Calcium 8.3 L Troponin I High Sens 8.9 B-Natriuretic Peptide 09/23/20 09/23/20 09:08 11:01 WBC RBC Hgb Hct MCV MCH MCHC RDW Std Deviation RDW Coeff of Mona Plt Count MPV Neut % (Auto) Absolute Neuts (auto) Absolute Lymphs (auto) Total Counted Neutrophils % (Manual) Band Neutrophils % Lymphocytes % (Manual) Monocytes % (Manual) Basophils % (Manual) Platelet Estimate RBC Morphology PT INR APTT Sodium Potassium Chloride Carbon Dioxide Anion Gap BUN Creatinine Estim Creat Clear Calc Est GFR (MDRD) Af Amer Est GFR (MDRD) Non-Af BUN/Creatinine Ratio Glucose Calcium Troponin I High Sens 8.7 B-Natriuretic Peptide 36.6 Radiography Diagnostic Testing: Radiology Impression Chest X-Ray 09/23/20 08:59 IMPRESSION: Cardiomegaly. Electronically Signed: Rogelio Oleary MD at 9:54 EDT , Service support , Chest CTA 09/23/20 10:08 IMPRESSION: No evidence of pulmonary embolism. Stable examination. Electronically Signed: Rogelio Oleary MD at 10:48 EDT , Service support , EKG Initial EKG: Attestation: I personally reviewed and interpreted this EKG as follows: Comments: EKG demonstrates a normal sinus rhythm at a rate of 91. No concerning features of ACS or ectopy noted. Prior: Unchanged (16 February 2020) Discharge Plan Triage Chief Complaint: Chest Pain ED Provider: Alejandro Poole Dx/Rx/DC Orders Clinical Impression: Chest pain Instructions: ED Chest Pain, Noncardiac Prescriptions: No Action levothyroxine 112 mcg tablet 112 mcg PO DAILY RF: 0 trazodone 150 mg tablet 150 mg PO DAILY RF: 0 fexofenadine [Thais Allergy] 180 mg tablet 180 mg PO DAILY RF: 0 tramadol 50 mg tablet 50 mg PO BID PRN (Reason: Pain 1-10 Or Fever) RF: 0 albuterol sulfate 90 mcg/actuation HFA aerosol inhaler 2 puff inhalation Q6H PRN (Reason: Shortness Of Breath) RF: 0 Prolia 60 mg/mL syringe subcut RF: 0 montelukast 10 mg tablet 10 mg PO DAILY RF: 0 oxybutynin chloride 10 mg tablet extended release 24hr 10 mg PO DAILY RF: 0 prednisone 10 mg tablet 10 mg PO RF: 0 simvastatin 40 MG tablet 40 mg PO QHS RF: 0 anastrozole 1 MG tablet 1 mg PO DAILY RF: 0 bupropion HCl 150 MG tablet extended release 24 hr 150 mg PO DAILY RF: 0 acetaminophen 500 MG tablet 1,000 mg PO Q6H PRN PRN (Reason: Pain) RF: 0 ergocalciferol (vitamin D2) 50,000 UNIT capsule 50,000 unit PO Q7D RF: 0 clonazepam 1 MG tablet 1 mg PO DAILY PRN PRN (Reason: restless leg syndrome) Qty: 14 RF: 0 potassium chloride 10 MEQ tablet 10 meq PO DAILY RF: 0 fluticasone furoate-vilanterol 1 EACH blister with device 1 ea IH DAILY RF: 0 warfarin 3 MG tablet 3 mg PO SUTUTHSA Qty: 0 RF: 0 warfarin 1 MG tablet 1.5 mg PO MOWEFR Qty: 0 RF: 0 calcitriol 0.25 MCG capsule 0.25 mcg PO DAILY RF: 0 calcium citrate (bulk) 100 GM powder 1,200 mg PO DAILY RF: 0 furosemide [Lasix] 40 mg tablet 20 mg PO DAILY Qty: 90 RF: 3 Primary Care Provider: Ai Anguiano Referrals: Ai Anguiano MD [Primary Care Provider] - 1 Week if not improving Disposition Disposition: Home, Self Care
[2020-09-23 09:22] LABS: Hematocrit 42.4 % (37-47); Hemoglobin 13.1 g/dL (12.0-15.0); Mean Corp Hgb Conc 30.9 g/dL (32-36); Mean Corpuscular Hgb 28.5 pg (27.0-32.0); Mean Corpuscular Volume 92.4 fL (81-99); Mean Platelet Vol. 8.9 fl (6.2-12.0); POSITIVE COUNT YES; POSITIVE MORPHOLOGY YES; Platelet Count 181 K/mm3 (150-450); RBC Distribution Width CV 14.5 % (11.6-14.6); RBC Distribution Width SD 48.6 fl (35.1-43.9); Red Blood Count 4.59 M/mm3 (4.2-5.4); White Blood Count 8.5 K/mm3 (4.4-11.0)
[2020-09-23 09:24] LABS: Differential Indicated MANUAL DIFF
[2020-09-23 09:34] LABS: Anion Gap 11 (5-15); BUN 26 mg/dL (7-18); BUN/Creat Ratio 18.3 RATIO (10-20); Calcium,Total 8.3 mg/dL (8.5-10.1); Chloride 103 mmol/L (98-107); Creatinine, Serum 1.42 mg/dL (0.55-1.02); EST Glomerular Filtration Rate 38 mL/min (>60); Est Glom Filt Rate - Afr Amer 46 mL/min (>60); Estimated Creatinine Clearance 29.38 ml/min; Glucose 141 mg/dL (74-106); Potassium 4.1 mmol/L (3.5-5.1); Sodium Level 139 mmol/L (136-145); Troponin-I HS 8.9 pg/mL (3.0-53.7)
[2020-09-23 09:37] LABS: International Normalized Ratio 1.5; Prothrombin Time (Protime)PT. 17.2 SECONDS (11.7-14.9)
[2020-09-23 09:38] LABS: Partial Thromboplast Time 27.9 Seconds (24.1-36.2)
[2020-09-23 09:43] LABS: BNP,B-Type NATRIURETIC PEPTIDE 36.6 pg/mL (0-100)
[2020-09-23 10:00] LABS: Basophil 1 % (0-1); Lymphocyte 23 % (19-41); Monocyte 4 % (0-10); Neutrophil-Band 1 % (0-5); Neutrophil-Segmented 71 % (47-70); Total Cells Counted 100 (MANUAL DIFF)
[2020-09-23 10:05] LABS: Platelet Estimate ADEQUATE (ADEQ); Red Cell Morphology NORM C+C NORMAL (NORM C&C)
[2020-09-23 10:08] LABS: Absolute Lymphocyte Count 1.95 X10^3/uL (0.83-4.51)
--- NOTE | 2020-09-23 10:08 | CT_ITS ---
STUDY: CTA CHEST REASON FOR EXAM: Female, 80 years old. Two-day history of chest pain. RADIATION DOSAGE (If Supplied By Facility): CTDIvol = ( 13.85 ) mGy, DLP = ( 514.92 ) mGycm TECHNIQUE: The examination was performed with the intravenous administration of IV 100mL [id number]-370. Post-processing of the angiographic images was performed, with multiplanar reformation and 3D reconstruction. Individualized dose optimization techniques were used for this CT. COMPARISON: Comparison is made with prior study of 05/28/2020. FINDINGS: Normal enhancement of the main pulmonary artery and right and left pulmonary arteries. Normal enhancement of the bilateral peripheral pulmonary arteries. There is no demonstrated pulmonary embolism. Normal thoracic aorta and visualized great vessels. There is no demonstrated aortic dissection. There is cardiomegaly. Normal mediastinum. Normal hilar regions. Normal visualized trachea and bronchi. The lungs are well expanded. Mild degree of increased linear markings in the right middle lobe suggestive of mild scarring and/or atelectasis. Stable 1.9 cm pleural-based heterogeneous nodule in the posterior-lateral aspect of the left lower lobe suggestive of possible bronchiectasis. Normal pleura. Normal chest wall structures. There are degenerative changes of thoracic spine. Bilateral renal cysts. 3.7 cm x 3.4 cm cyst in the upper pole of the left kidney. 2.3 cm x 2.1 cm cyst in the upper pole of the right kidney. The patient is status post cholecystectomy. Pancreatic atrophy. CT/CTA Chest W/WO Contrast IMPRESSION: No evidence of pulmonary embolism. Stable examination. Electronically Signed: Rogelio Oleary MD at 10:48 EDT , Service support ,
[2020-09-23 10:09] LABS: Absolute Neutrophil Count 6.1 X10^3/uL (2.0-7.7); Lymphocyte # 1.95 X10^3/ul (0.83-4.51); Neutrophil # 6.11 X10^3/uL (2.7-7.7)
[2020-09-23 10:33] VITALS: BP 151/86; PULSE 79; RESP 16; O2SAT 96
[2020-09-23 11:06] VITALS: BP 141/82; PULSE 78; RESP 13; O2SAT 97
[2020-09-23 11:27] LABS: Troponin-I HS 8.7 pg/mL (3.0-53.7)
[2020-09-23 12:05] VITALS: BP 155/98; PULSE 86; RESP 16; O2SAT 98
[2020-09-23 23:46] LABS: Pathologist Review May foll
== END 2020-09-23 12:06 | disposition home or self-care (01) ==
PROVIDERS: Emergency Provider Emergency Medicine; PCP Internal Medicine
DX: R07.9 Chest pain, unspecified (principal); E66.9 Obesity, unspecified; L03.116 Cellulitis of left lower limb; M79.601 Pain in right arm; R06.02 Shortness of breath; E03.9 Hypothyroidism, unspecified; E11.42 Type 2 diabetes mellitus with diabetic polyneuropathy; E78.5 Hyperlipidemia, unspecified; F32.9 Major depressive disorder, single episode, unspecified; F41.9 Anxiety disorder, unspecified; G47.33 Obstructive sleep apnea (adult) (pediatric); G47.00 Insomnia, unspecified; I71.2 Thoracic aortic aneurysm, without rupture; Z79.52 Long term (current) use of systemic steroids; Z86.718 Personal history of other venous thrombosis and embolism; Z79.01 Long term (current) use of anticoagulants; Z86.711 Personal history of pulmonary embolism; I11.9 Hypertensive heart disease without heart failure; Z96.643 Presence of artificial hip joint, bilateral
CPT/HCPCS: 71045; 71275; 80048; 83880; 84484; 85025; 85610; 85730; 93005; 99284; Q9967; A4216

== ENCOUNTER → 2020-11-07 | Outpatient (CLI) | payer MEDICARE, SELFPAY ==
[2020-07-22 13:49] VITALS: BMI 42.0
[2020-10-16 11:04] VITALS: BMI 41.9
--- NOTE | 2020-11-07 09:17 | PCM.HP.BLA ---
History and Physical Date of Admission: 11/07/20 [facility] <Layne Pride - Last Filed: 07/22/20 14:01> Medical History (Updated 07/22/20 @ 16:[address] Benjie Diehl MD) Anxiety Breast cancer, left breast Cellulitis of right lower extremity Chronic obstructive pulmonary disease Closed head injury COPD (chronic obstructive pulmonary disease) Debility Depression Diabetes mellitus Diabetes mellitus type 2 in obese Diabetes mellitus, type II Essential (primary) hypertension Gait difficulty History of pulmonary embolism Hypercoagulable state Hyperlipidemia Hypothyroidism Insomnia Insomnia Left ureteral stone Lupus anticoagulant disorder Morbid obesity Obesity Obstructive sleep apnea YOLY (obstructive sleep apnea) Osteoarthritis Restless leg syndrome Thoracic aortic aneurysm Traumatic hematoma of right foot Type 2 diabetes mellitus with diabetic polyneuropathy Wound of right foot Surgical History (Updated 07/22/20 @ 13:48 by Layne Pride) History of cataract extraction History of inferior vena caval filter placement History of left hip replacement History of lumpectomy History of open reduction and internal fixation (ORIF) procedure History of right hip replacement History of tonsillectomy History of total left knee replacement Family History (Updated 07/22/20 @ 13:49 by Layne Pride) Mother CHF (congestive heart failure) Brother Diabetes Heart disease Myocardial infarction Father Myocardial infarction Heart disease Social History Smoking Status: Never smoker HPI <Layne Pride - Last Filed: 07/22/20 14:01> HPI HPI: DULCE SANCHEZ, is a 80 F who presents to the office today for <Dr. Benjie Diehl MD - Last Filed: 07/22/20 16:44> HPI HPI: 80-year-old female. She is referred by Dr. Ai Anguiano for surgical consultation of a colonoscopy. A written copy of my surgical consult recommendations will be returned to her. The patient's most recent exam was June 25, 2013 and that was performed by Dr. Allen De Guzman. There was a 7 mm polyp in the proximal transverse colon another centimeter polyp in the distal transverse colon. Recommendations were for follow-up at 5 years. On pathology both of those polyps were tubular adenomas. Fortunately the patient denies any bright red blood per rectum or or melena. She does have significant dyspnea. She is not able to climb a flight of stairs. She has chronic left lower extremity swelling with history of ankle fracture knee replacement femur fracture and left hip replacement. She does not get any routine exercise. She has had a history of 2 previous pulmonary emboli. She has been on chronic Coumadin therapy since at least 2004. Her most recent pulmonary embolus though was approximately 2006. She currently denies any abdominal pain. HPI <Layne Pride - Last Filed: 07/22/20 14:01> HPI HPI: DULCE SANCHEZ, is a 80 F who presents to the office today for ROS <Layne Pride - Last Filed: 07/22/20 14:01> General General: Yes breast cancer; No weight change, appetite, fatigue, colon cancer or weakness HEENT HEENT: Yes eye surgery; No difficulty swallowing, eye injury, swollen glands or hoarseness Endo Endocrine: Yes thyroid disease and diabetes mellitus; No thyroid cancer, Hair loss, heat intolerance or cold intolerance Musc Musculoskeletal: Yes back problems and arthritis; No rheumatoid arthritis, gout or joint pain Cardio Cardiovascular: No murmur, pacemaker, heart disease, atrial fibrillation, high blood pressure, heart attack, heart stent, palpitations, shortness of breat with exertion or chest pain Psych Psychiatric: Yes depression; No anxiety or hearing voices Resp Respiratory: Yes shortness of breath, Yes sleep apnea, No cough, No COPD, No asthma, No emphysema and No wheezing Gastro Gastrointestinal: No abdominal pain, No nausea or vomiting, No diarrhea, No constipation, No blood in stool, No acid reflux, No hemorrhoids, No ulcers, No gallbladder problem and No black,tarry stools Keyur Hematologic: No blood thinners, No blood disorders, No bleeding, No anemia and No blood clots Additional Details: PE 2004 Neuro Neurologic: No weakness Exam <Layne Pride - Last Filed: 07/22/20 14:01> Cardio Heart Sounds: no murmurs <Dr. Benjie Diehl MD - Last Filed: 07/22/20 16:44> Const General: cooperative and comfortable Nutritional Appearance: overweight HENMT Head: normal to inspection Eyes General: appearance normal, both eyes and all related structures Resp Effort & Inspection: normal respiratory effort Auscultation: clear to auscultation bilaterally Cardio Rate: regular rate Rhythm: regular rhythm Musc Cervical Spine: normal cervical lordosis Neuro Other: Normal cognition Extrem Other: Bilateral lower extremity swelling left much more so than the right. Psych Thought Content: normal <Dr. Benjie Diehl MD - Last Filed: 07/22/20 16:44> Assessment and Plan (1) Personal history of colonic polyps: Plan Details Additional Comments: 80-year-old female with a previous history of colon polyps. Most recent colonoscopy May 2013. I propose for her a colonoscopy with possible biopsy or polypectomy as indicated. She is on chronic warfarin therapy we will have her hold that 2 days preprocedure. She has had a history of pulmonary emboli. She is dyspnea on minimal exertion. She has chronic bilateral lower extremity swelling. With all of that in mind I recommend that we perform this with monitored anesthesia care. She has had an opportunity to ask and have questions answered. As of February 19, 2020 an echocardiogram at that point suggested an ejection fraction of 65% with stage I diastolic dysfunction. We will schedule and proceed at her discretion. I very much appreciate the kind opportunity of assisting with her surgical care Copy: Dr. Ai Diehl M.D., F.A.C.S. While getting changed the patient injured her right leg on the stretcher causing a skin tear losing bleeding and significant free fluid extravasation. In addition her INR was noted to be 3.1. Her colonoscopy was canceled for today and rescheduled for November 10, 2020. She will refer to my office to see if there is anything we can do to assist with her right leg skin tear. Benjie Diehl M.D., F.A.C.S.
[2020-11-07 10:02] VITALS: BP 138/87; PULSE 96; RESP 16; TEMP 36.2; O2SAT 100; BMI 43.9
[2020-11-07 10:06] LABS: International Normalized Ratio 3.1
[2020-11-07] MEDS: Lactated Ringers 1,000 ML 100 ML IV (10:16)
[2020-11-07 10:20] LABS: Bedside Glucose 131 mg/dL (70-110)
--- NOTE | 2020-11-07 11:05 | SUR.PREOP ---
pt colonoscopy rescheduled for Tuesday based on pt/inr. pt instructed per dr montez to go to his office for further instructions for Tuesday's colonoscopy and for repair of recent wound.
[2020-11-07 14:35] LABS: INR Fingerstick 3.7; Prothrombin Time Fingerstick 40.2 SEC (11.9-14.4)
== END | disposition home or self-care (01) ==
LOC: EN 09:08 → AC 11:00 → PAT 06-15 06:51
PROVIDERS: Anesthesiology; PCP Internal Medicine; Referring Provider Internal Medicine; Visit Provider Surgery
DX: Z01.812 Encounter for preprocedural laboratory examination (principal)
CPT/HCPCS: 36416; 82962; 85610; J7120

== ENCOUNTER 2020-11-09 02:03 | Emergency (ER) | payer MEDICARE, SELFPAY ==
[2020-11-07 11:32] VITALS: BMI 43.9
[2020-11-09 02:04] VITALS: BP 166/102; PULSE 111; RESP 16; TEMP 36.8; O2SAT 95; BMI 43.4
--- NOTE | 2020-11-09 02:23 | EX.ED.DYSGE1 ---
HPI History of Present Illness Chief Complaint: Nosebleed Informant: patient and spouse/S.O. Onset/Context/Timing Onset: Yesterday Context: Gradual Onset Timing: Intermittent Current Severity: Mild Maximum Severity: Moderate Narrative Narrative: Patient presents secondary to nosebleed. Patient states around 10 PM last evening she started bleeding from her nose. She states it was going down her throat she was blowing out large clots. She was finally able to get it to stop but then after lying down to the back to sleep started bleeding again. On arrival to the emergency room bleeding seems to be subsided. Patient is on Coumadin. She had recently held her medication for a planned colonoscopy, however when they checked her INR before the procedure it was still elevated at 3.1 so her procedure was canceled. She is currently bridging with Lovenox to go back onto her Coumadin. She denies any facial trauma or recent URI symptoms. [facility] Medical History Anxiety Arthritis Back pain BiPAP (biphasic positive airway pressure) dependence Blood in stool Breast cancer, left breast Cancer Cardiology follow-up encounter Cellulitis of right lower extremity Chronic cough Chronic cough Chronic kidney disease Closed head injury Debility Depression Diabetes Diabetes mellitus type 2 in obese Diabetes mellitus, type II Dilated aortic root Dyspnea Easy bruising Essential (primary) hypertension Gait difficulty High cholesterol History of echocardiogram History of edema History of pain when walking History of pulmonary embolism History of steroid therapy Hoarseness Hx of cataract Hx of fracture of ankle Hypercoagulable state Hyperlipidemia Hypothyroidism Injury of back Insomnia Left ureteral stone Leg cramps Leg wound, left Lupus anticoagulant disorder Morbid obesity Non-smoker Obesity Obstructive sleep apnea YOLY (obstructive sleep apnea) Osteoarthritis Personal history of colonic polyps Pulmonary embolism Restless leg syndrome Shortness of breath on exertion Sleep apnea Thyroid disease Traumatic hematoma of right foot Type 2 diabetes mellitus with diabetic polyneuropathy Wears glasses Wound of right foot Home Medications simvastatin 40 mg PO QHS 01/24/14 [History Last Taken 12/09/18 21:00] bupropion HCl [Wellbutrin XL] 150 mg PO DAILY 04/22/18 [History Last Taken 12/09/18 21:00] acetaminophen 1,000 mg PO Q6H PRN PRN tab 01/02/19 [Rx Last Taken Unknown] clonazepam 1 mg PO DAILY PRN PRN #14 tab 01/02/19 [Rx Last Taken Unknown] ergocalciferol (vitamin D2) 50,000 unit PO Q7D cap 01/02/19 [Rx Last Taken 07/05/19 08:00] tramadol 50 mg tablet 50 mg PO BID PRN 10/25/19 [History Last Taken Unknown] trazodone 150 mg tablet 150 mg PO DAILY tab 10/25/19 [History Last Taken Unknown] calcitriol 0.25 mcg PO DAILY 02/16/20 [History Last Taken Unknown] albuterol sulfate 90 mcg/actuation aerosol inhaler 2 puff INHALATION Q6H PRN 07/22/20 [History Last Taken 11/07/20] denosumab 60 mg/mL subcutaneous syringe 60 mg SUBCUT .Q6MO 07/22/20 [History Last Taken Unknown] montelukast 10 mg tablet 10 mg PO DAILY tab 07/22/20 [History Last Taken Unknown] oxybutynin chloride 10 mg tablet,extended release 24 hr 10 mg PO DAILY tab 07/22/20 [History Last Taken Unknown] prednisone 10 mg tablet 10 - 15 mg PO DAILY tab 07/22/20 [History Last Taken 11/07/20] furosemide 40 mg tablet 20 mg PO DAILY #90 tab 07/29/20 [Rx Last Taken Unknown] levothyroxine 125 mcg tablet 125 mcg PO DAILY 10/16/20 [History Last Taken 11/07/20] sitagliptin 100 mg tablet 100 mg PO DAILY 10/16/20 [History Last Taken Unknown] buprenorphine 1 patch TRANSDERMAL Q7D PRN 11/05/20 [History Last Taken Unknown] fluticasone furoate [Arnuity Ellipta] 1 inh INHALATION DAILY 11/05/20 [History Last Taken Unknown] lidocaine 1 patch TOPICAL PRN PRN 11/05/20 [History Last Taken Unknown] warfarin 3 mg PO DAILY 11/05/20 [History Last Taken 11/04/20] enoxaparin 120 mg SUBCUT Q12H 11/09/20 [History Last Taken Unknown] metformin 500 mg PO DAILY 11/09/20 [History Last Taken Unknown] Allergy/AdvReac Type Severity Reaction Status Date / Time acetaminophen [From Vicodin] AdvReac Unknown Verified 11/09/20 02:06 ciprofloxacin [From Cipro] AdvReac chest pain Verified 11/09/20 02:06 codeine AdvReac Upset Verified 11/09/20 02:06 Stomach hydrocodone bitartrate AdvReac Upset Verified 11/09/20 02:06 [From Vicodin] Stomach Family History Mother CHF (congestive heart failure) Brother Diabetes Heart disease Myocardial infarction Father Myocardial infarction Heart disease Surgical History History of bronchoscopy History of bunionectomy History of cataract extraction History of hammer toe correction History of inferior vena caval filter placement History of left hip replacement History of lumpectomy History of lumpectomy of left breast History of open reduction and internal fixation (ORIF) procedure History of right hip replacement History of tonsillectomy History of total bilateral knee replacement History of total left knee replacement Hx of cholecystectomy Hx of cystoscopy Hx of local excision of skin lesion Hx of tubal ligation Social History Smoking Status: Never smoker ROS ROS ED Constitutional Constitutional ED: Denies chills or fever(s) Eyes Eyes: Denies change in vision ENT ENT ED: Reports other Details: Nosebleed right nare ; Denies sore throat Cardiovascular Cardiovascular: Denies chest pain Respiratory/Chest Respiratory/Chest: Denies cough or dyspnea Gastrointestinal Gastrointestinal: Denies abdominal pain, diarrhea, nausea or vomiting Genitourinary Genitourinary ED: Denies dysuria Musculoskeletal Musculoskeletal: Denies back pain Neurologic Neurologic: Denies headache(s) or weakness Psychiatric Psychiatric: Denies anxiety or depression Endocrine Endocrinology: Denies polydipsia or polyuria Allergic/Immunologic Allergic/Immunologic ED: Denies urticaria EXAM Physical Exam Const Vital Signs: 11/09/20 02:04 Temperature 98.2 F Temperature Source Temporal Pulse Rate 111 H Respiratory Rate 16 Blood Pressure 166/102 H Blood Pressure Mean 123 Pulse Ox 95 Positive well nourished and well developed General Appearance ED: well developed HEENT Reports normocephalic and head/scalp atraumatic HEENT Narrative: Blood noted in the right nare. Left nare clear. Eyes PERRL and EOMs intact bilaterally Neck supple Chest Wall inspection of chest normal and palpation of chest normal Resp normal respiratory effort and clear to auscultation bilaterally Cardio regular rate and regular rhythm GI non-tender Palpation: soft Extremity Extremity Narrative: Chronic venous skin changes lower extremities Neuro oriented x3 Neuro Narrative: No focal neuro deficit Sensorium / Orientation: alert Psych mental status grossly normal MDM MDM MDM Narrative Medical decision making narrative: Nasal packing sponge placed in the right nare. INR checked. Lab Data Attestation: I reviewed the patient's lab results. Labs: Laboratory Results - last 24 hr 11/09/20 11/09/20 02:20 02:45 PT Cancelled 24.1 H INR Cancelled 2.3 Treatment and Re-Evaluation Comments:: INR is currently 2.3. She is on Lovenox shots as she has an upcoming procedure next Tuesday where she must be off her Coumadin. Patient be discharged with nasal packing in place. She has seen Dr. Lyons in the past and will call him Tuesday morning for follow-up. Discharge Plan Triage Chief Complaint: Nosebleed ED Provider: Agatha Mercedes Dx/Rx/DC Orders Clinical Impression: Epistaxis Instructions: ED Epistaxis (Adult) Prescriptions: No Action trazodone 150 mg tablet 150 mg PO DAILY RF: 0 tramadol 50 mg tablet 50 mg PO BID PRN (Reason: Pain 1-10 Or Fever) RF: 0 Januvia 100 mg tablet 100 mg PO DAILY RF: 0 levothyroxine 125 mcg tablet 125 mcg PO DAILY RF: 0 albuterol sulfate 90 mcg/actuation HFA aerosol inhaler 2 puff inhalation Q6H PRN (Reason: Shortness Of Breath) RF: 0 Prolia 60 mg/mL syringe 60 mg subcut .Q6MO RF: 0 montelukast 10 mg tablet 10 mg PO DAILY RF: 0 oxybutynin chloride 10 mg tablet extended release 24hr 10 mg PO DAILY RF: 0 prednisone 10 mg tablet 10 - 15 mg PO DAILY RF: 0 simvastatin 40 MG tablet 40 mg PO QHS RF: 0 bupropion HCl [Wellbutrin XL] 150 MG tablet extended release 24 hr 150 mg PO DAILY RF: 0 acetaminophen 500 MG tablet 1,000 mg PO Q6H PRN PRN (Reason: Pain) RF: 0 ergocalciferol (vitamin D2) 50,000 UNIT capsule 50,000 unit PO Q7D RF: 0 clonazepam 1 MG tablet 1 mg PO DAILY PRN PRN (Reason: restless leg syndrome) Qty: 14 RF: 0 calcitriol 0.25 MCG capsule 0.25 mcg PO DAILY RF: 0 lidocaine 5 % adhesive patch,medicated 1 patch topical PRN PRN (Reason: Pain) RF: 0 buprenorphine 5 mcg/hour Patch Weekly 1 patch TRANSDERMAL Q7D PRN (Reason: Pain) RF: 0 Arnuity Ellipta 200 mcg/actuation Blister With Device 1 inh INHALATION DAILY RF: 0 warfarin 3 MG tablet 3 mg PO DAILY RF: 0 metformin 500 mg Tablet 500 mg PO DAILY RF: 0 enoxaparin 120 mg/0.8 mL Syringe 120 mg SUBCUT Q12H RF: 0 furosemide [Lasix] 40 mg tablet 20 mg PO DAILY Qty: 90 RF: 3 Primary Care Provider: Ai Anguiano Referrals: Abelardo Lyons MD [STAFF PHYSICIAN] - As soon as possible Ai Anguiano MD [Primary Care Provider] - Disposition Disposition: Home, Self Care
[2020-11-09 03:09] LABS: International Normalized Ratio 2.3; Prothrombin Time (Protime)PT. 24.1 SECONDS (11.7-14.9)
[2020-11-09 03:24] VITALS: PULSE 88; RESP 16
== END 2020-11-09 03:25 | disposition home or self-care (01) ==
PROVIDERS: Emergency Provider Emergency Medicine; PCP Internal Medicine
DX: R04.0 Epistaxis (principal); Z79.01 Long term (current) use of anticoagulants; E03.9 Hypothyroidism, unspecified; E11.22 Type 2 diabetes mellitus with diabetic chronic kidney disease; E11.42 Type 2 diabetes mellitus with diabetic polyneuropathy; E66.01 Morbid (severe) obesity due to excess calories; E78.00 Pure hypercholesterolemia, unspecified; E78.5 Hyperlipidemia, unspecified; F32.9 Major depressive disorder, single episode, unspecified; F41.9 Anxiety disorder, unspecified; G47.00 Insomnia, unspecified; G47.33 Obstructive sleep apnea (adult) (pediatric); I12.9 Hypertensive chronic kidney disease with stage 1 through stage 4 chronic kidney disease, or unspecified chronic kidney disease; Z79.52 Long term (current) use of systemic steroids; Z79.84 Long term (current) use of oral hypoglycemic drugs; Z86.711 Personal history of pulmonary embolism; Z87.19 Personal history of other diseases of the digestive system; Z96.642 Presence of left artificial hip joint; Z96.652 Presence of left artificial knee joint; Z90.49 Acquired absence of other specified parts of digestive tract
CPT/HCPCS: 36415; 85610

== ENCOUNTER 2020-11-09 12:10 | Emergency (ER) | payer MEDICARE, SELFPAY ==
[2020-11-09 02:04] VITALS: BMI 43.4
[2020-11-09 12:12] VITALS: BP 149/84; PULSE 93; RESP 18; TEMP 36.3; O2SAT 97; BMI 43.7
[2020-11-09 12:52] LABS: Hematocrit 44.2 % (37-47); Hemoglobin 13.7 g/dL (12.0-15.0); Mean Corpuscular Hgb 29.1 pg (27.0-32.0); Mean Platelet Vol. 8.6 fl (6.2-12.0); POSITIVE COUNT YES; POSITIVE MORPHOLOGY YES; Platelet Count 137 K/mm3 (150-450); RBC Distribution Width CV 15.4 % (11.6-14.6); RBC Distribution Width SD 52.9 fl (35.1-43.9); White Blood Count 8.2 K/mm3 (4.4-11.0)
[2020-11-09 12:57] LABS: Differential Indicated MANUAL DIFF
[2020-11-09 13:05] LABS: International Normalized Ratio 1.7; Prothrombin Time (Protime)PT. 19.2 SECONDS (11.7-14.9)
[2020-11-09 13:06] LABS: Partial Thromboplast Time 41.3 Seconds (24.1-36.2)
[2020-11-09 13:26] LABS: Lymphocyte 16 % (19-41); Metamyelocyte 1 % (0-1); Monocyte 7 % (0-10); Neutrophil-Band 2 % (0-5); Neutrophil-Segmented 74 % (47-70); Nucleated Red Bld Cells,Manual 1 % (0-5); Platelet Estimate SLT DEC (ADEQ); Red Cell Morphology NORM C+C NORMAL (NORM C&C); Total Cells Counted 100 (MANUAL DIFF)
[2020-11-09 13:27] LABS: Absolute Neutrophil Count 6.2 X10^3/uL (2.0-7.7)
--- NOTE | 2020-11-09 13:57 | EDS_ITS ---
HPI History of Present Illness Chief Complaint: Nosebleed Narrative Narrative: Patient presents to the ER with complaint of right-sided nosebleed. Patient has a history of Coumadin use and also Lovenox. She states she was seen last night for right-sided nosebleed and had packing placed. She reports while she slept she awoke and noticed blood to her right sided face. She states she been able to dab blood from the right nostril as well and secondary to this comes in for repeat evaluation. She denies any repeat trauma she denies any lightheadedness chest pain shortness of breath or syncope [facility] Medical History Anxiety Arthritis Back pain BiPAP (biphasic positive airway pressure) dependence Blood in stool Breast cancer, left breast Cancer Cardiology follow-up encounter Cellulitis of right lower extremity Chronic cough Chronic cough Chronic kidney disease Closed head injury Debility Depression Diabetes Diabetes mellitus type 2 in obese Diabetes mellitus, type II Dilated aortic root Dyspnea Easy bruising Essential (primary) hypertension Gait difficulty High cholesterol History of echocardiogram History of edema History of pain when walking History of pulmonary embolism History of steroid therapy Hoarseness Hx of cataract Hx of fracture of ankle Hypercoagulable state Hyperlipidemia Hypothyroidism Injury of back Insomnia Left ureteral stone Leg cramps Leg wound, left Lupus anticoagulant disorder Morbid obesity Non-smoker Obesity Obstructive sleep apnea YOLY (obstructive sleep apnea) Osteoarthritis Personal history of colonic polyps Pulmonary embolism Restless leg syndrome Shortness of breath on exertion Sleep apnea Thyroid disease Traumatic hematoma of right foot Type 2 diabetes mellitus with diabetic polyneuropathy Wears glasses Wound of right foot Home Medications simvastatin 40 mg PO QHS 01/24/14 [History Last Taken 12/09/18 21:00] bupropion HCl [Wellbutrin XL] 150 mg PO DAILY 04/22/18 [History Last Taken 12/09/18 21:00] acetaminophen 1,000 mg PO Q6H PRN PRN tab 01/02/19 [Rx Last Taken Unknown] clonazepam 1 mg PO DAILY PRN PRN #14 tab 01/02/19 [Rx Last Taken Unknown] ergocalciferol (vitamin D2) 50,000 unit PO Q7D cap 01/02/19 [Rx Last Taken 07/05/19 08:00] tramadol 50 mg tablet 50 mg PO BID PRN 07/30/20 [History Last Taken Unknown] trazodone 150 mg tablet 150 mg PO DAILY tab 10/25/19 [History Last Taken Unknown] calcitriol 0.25 mcg PO DAILY 02/16/20 [History Last Taken Unknown] albuterol sulfate 90 mcg/actuation aerosol inhaler 2 puff INHALATION Q6H PRN 07/22/20 [History Last Taken 11/07/20] denosumab 60 mg/mL subcutaneous syringe 60 mg SUBCUT .Q6MO 07/22/20 [History Last Taken Unknown] montelukast 10 mg tablet 10 mg PO DAILY tab 07/22/20 [History Last Taken Unknown] oxybutynin chloride 10 mg tablet,extended release 24 hr 10 mg PO DAILY tab 07/22/20 [History Last Taken Unknown] prednisone 10 mg tablet 10 - 15 mg PO DAILY tab 07/22/20 [History Last Taken 11/07/20] furosemide 40 mg tablet 20 mg PO DAILY #90 tab 07/29/20 [Rx Last Taken Unknown] levothyroxine 125 mcg tablet 125 mcg PO DAILY 10/16/20 [History Last Taken 11/07/20] sitagliptin 100 mg tablet 100 mg PO DAILY 10/16/20 [History Last Taken Unknown] buprenorphine 1 patch TRANSDERMAL Q7D PRN 11/05/20 [History Last Taken Unknown] fluticasone furoate [Arnuity Ellipta] 1 inh INHALATION DAILY 11/05/20 [History Last Taken Unknown] lidocaine 1 patch TOPICAL PRN PRN 11/05/20 [History Last Taken Unknown] warfarin 3 mg PO DAILY 11/05/20 [History Last Taken 11/04/20] enoxaparin 120 mg SUBCUT Q12H 11/09/20 [History Last Taken Unknown] metformin 500 mg PO DAILY 11/09/20 [History Last Taken Unknown] Allergy/AdvReac Type Severity Reaction Status Date / Time acetaminophen [From Vicodin] AdvReac Unknown Verified 11/09/20 12:11 ciprofloxacin [From Cipro] AdvReac chest pain Verified 11/09/20 12:11 codeine AdvReac Upset Verified 11/09/20 12:11 Stomach hydrocodone bitartrate AdvReac Upset Verified 11/09/20 12:11 [From Vicodin] Stomach Family History Mother CHF (congestive heart failure) Brother Diabetes Heart disease Myocardial infarction Father Myocardial infarction Heart disease Surgical History History of bronchoscopy History of bunionectomy History of cataract extraction History of hammer toe correction History of inferior vena caval filter placement History of left hip replacement History of lumpectomy History of lumpectomy of left breast History of open reduction and internal fixation (ORIF) procedure History of right hip replacement History of tonsillectomy History of total bilateral knee replacement History of total left knee replacement Hx of cholecystectomy Hx of cystoscopy Hx of local excision of skin lesion Hx of tubal ligation Social History Smoking Status: Never smoker ROS ROS ED Constitutional Constitutional ED: Denies chills or fever(s) Eyes Eyes: Denies change in vision ENT ENT ED: Reports other Details: Positive epistaxis Cardiovascular Cardiovascular: Denies chest pain, palpitations or racing heartbeat Respiratory/Chest Respiratory/Chest: Denies cough or dyspnea Gastrointestinal Gastrointestinal: Denies nausea or vomiting Musculoskeletal Musculoskeletal: Denies myalgias Integumentary Denies rash Neurologic Neurologic: Denies headache(s) Hematologic/Lymphatic Hematologic/Lymphatic: Reports easy bleeding and easy bruising EXAM Physical Exam Const Vital Signs: 11/09/20 12:12 Temperature 97.4 F L Temperature Source Temporal Pulse Rate 93 Respiratory Rate 18 Blood Pressure 149/84 H Blood Pressure Mean 105 Pulse Ox 97 Oxygen Delivery Method Room Air Positive well nourished and well developed General Appearance ED: well developed HEENT HEENT Narrative: Patient has packing present in the right nostril. There is slight ooze of blood at the opening of the right nostril. There is no dried blood or active bleeding noted in the left nostril. There is dried blood noted in the posterior pharynx without active bleeding present. Eyes PERRL and EOMs intact bilaterally General Eye ED: Yes pale conjunctiva; Negative for scleral icterus Neck supple Chest Wall inspection of chest normal Resp normal respiratory effort and clear to auscultation bilaterally Cardio regular rate and regular rhythm Extremity normal to inspection Neuro oriented x3 and CN's II-XII intact bilaterally Sensorium / Orientation: alert Psych mental status grossly normal Skin no rashes or lesions noted MDM MDM MDM Narrative Medical decision making narrative: Patient presented to the ER in no acute distress. The blood still present from the right nostril was minimal in nature. However as she does report history of blood thinner use elected to perform basic laboratory studies. Labs show any mild elevation to her bleeding times her platelets are only slightly down and her blood volume is technically normal at this time. We discussed that I could remove the packing at this time and replace it as tightly there is still some active bleeding noted. However as the bleeding is just minimal in nature and is not affecting her blood volume or her vitals we elected not to do this. Patient will see ENT in less than 24 hours and therefore she will hold her Lovenox and Coumadin and can follow-up on an outpatient basis as the bleeding is not profuse in nature and not affecting her labs or vitals Lab Data Labs: Laboratory Results - last 24 hr 11/09/20 11/09/20 12:45 12:45 WBC 8.2 RBC 4.70 Hgb 13.7 Hct 44.2 MCV 94.0 MCH 29.1 MCHC 31.0 L RDW Std Deviation 52.9 H RDW Coeff of Mona 15.4 H Plt Count 137 L MPV 8.6 Neut % (Auto) Not Reportable Absolute Neuts (auto) 6.2 Absolute Lymphs (auto) 1.30 Total Counted 100 Neutrophils % (Manual) 74 H Band Neutrophils % 2 Lymphocytes % (Manual) 16 L Monocytes % (Manual) 7 Metamyelocytes % 1 Nucleated RBCs/100 WBC 1 Platelet Estimate SLT DEC RBC Morphology NORM C+C PT 19.2 H INR 1.7 APTT 41.3 H Discharge Plan Triage Chief Complaint: Nosebleed ED Provider: Surinder Byrnes Dx/Rx/DC Orders Clinical Impression: Epistaxis Prescriptions: No Action trazodone 150 mg tablet 150 mg PO DAILY RF: 0 tramadol 50 mg tablet 50 mg PO BID PRN (Reason: Pain 1-10 Or Fever) RF: 0 Januvia 100 mg tablet 100 mg PO DAILY RF: 0 levothyroxine 125 mcg tablet 125 mcg PO DAILY RF: 0 albuterol sulfate 90 mcg/actuation HFA aerosol inhaler 2 puff inhalation Q6H PRN (Reason: Shortness Of Breath) RF: 0 Prolia 60 mg/mL syringe 60 mg subcut .Q6MO RF: 0 montelukast 10 mg tablet 10 mg PO DAILY RF: 0 oxybutynin chloride 10 mg tablet extended release 24hr 10 mg PO DAILY RF: 0 prednisone 10 mg tablet 10 - 15 mg PO DAILY RF: 0 simvastatin 40 MG tablet 40 mg PO QHS RF: 0 bupropion HCl [Wellbutrin XL] 150 MG tablet extended release 24 hr 150 mg PO DAILY RF: 0 acetaminophen 500 MG tablet 1,000 mg PO Q6H PRN PRN (Reason: Pain) RF: 0 ergocalciferol (vitamin D2) 50,000 UNIT capsule 50,000 unit PO Q7D RF: 0 clonazepam 1 MG tablet 1 mg PO DAILY PRN PRN (Reason: restless leg syndrome) Qty: 14 RF: 0 calcitriol 0.25 MCG capsule 0.25 mcg PO DAILY RF: 0 lidocaine 5 % adhesive patch,medicated 1 patch topical PRN PRN (Reason: Pain) RF: 0 buprenorphine 5 mcg/hour Patch Weekly 1 patch TRANSDERMAL Q7D PRN (Reason: Pain) RF: 0 Arnuity Ellipta 200 mcg/actuation Blister With Device 1 inh INHALATION DAILY RF: 0 warfarin 3 MG tablet 3 mg PO DAILY RF: 0 metformin 500 mg Tablet 500 mg PO DAILY RF: 0 enoxaparin 120 mg/0.8 mL Syringe 120 mg SUBCUT Q12H RF: 0 furosemide [Lasix] 40 mg tablet 20 mg PO DAILY Qty: 90 RF: 3 Primary Care Provider: Ai Anguiano Referrals: Abelardo Lyons MD [STAFF PHYSICIAN] - 11/10/20 Ai Anguiano MD [Primary Care Provider] - Disposition Disposition: Home, Self Care
[2020-11-09 14:15] VITALS: BP 145/104; PULSE 68; RESP 15; O2SAT 98
[2020-11-10 15:41] LABS: Pathologist Review Reviewed
== END 2020-11-09 14:15 | disposition home or self-care (01) ==
PROVIDERS: Emergency Provider Emergency Medicine; PCP Internal Medicine
DX: R04.0 Epistaxis (principal); E03.9 Hypothyroidism, unspecified; E11.22 Type 2 diabetes mellitus with diabetic chronic kidney disease; E11.42 Type 2 diabetes mellitus with diabetic polyneuropathy; E78.00 Pure hypercholesterolemia, unspecified; E78.5 Hyperlipidemia, unspecified; F32.9 Major depressive disorder, single episode, unspecified; F41.9 Anxiety disorder, unspecified; G47.00 Insomnia, unspecified; G47.33 Obstructive sleep apnea (adult) (pediatric); I12.9 Hypertensive chronic kidney disease with stage 1 through stage 4 chronic kidney disease, or unspecified chronic kidney disease; Z79.01 Long term (current) use of anticoagulants; Z79.52 Long term (current) use of systemic steroids; Z79.84 Long term (current) use of oral hypoglycemic drugs; Z86.711 Personal history of pulmonary embolism; Z87.19 Personal history of other diseases of the digestive system; Z85.3 Personal history of malignant neoplasm of breast; N18.9 Chronic kidney disease, unspecified
CPT/HCPCS: 36415; 85025; 85610; 85730; 99282

== ENCOUNTER 2020-11-16 09:11 | Observation (INO) | payer MEDICARE, SELFPAY ==
[2020-11-16] VITALS (12 sets, daily range): BP systolic 120–166; BP diastolic 52–98; PULSE 60–88; RESP 12–18; TEMP 36.1–37; O2SAT 88–100; BMI 42.1; BMI 40.4
--- NOTE | 2020-11-16 09:25 | EKG12_ITS ---
Test Reason : CP ADMIT Blood Pressure : / mmHG Vent. Rate : 071 BPM Atrial Rate : 071 BPM P-R Int : 164 ms QRS Dur : 100 ms QT Int : 462 ms P-R-T Axes : 033 -16 020 degrees QTc Int : 502 ms Normal sinus rhythm Prolonged QT Abnormal ECG When compared with ECG of 23-SEP-2020 09:02, Borderline criteria for Anterior infarct are no longer Present Confirmed by DEBRA MEJIA, DANK ([id number]), greeting card editor KENNETH PAZ ([id number]) on 11/18/2020 8:01:54 AM Referred By: SANDRA Confirmed By:DANK RICHARDSON MD
--- NOTE | 2020-11-16 09:25 | RAD_ITS ---
STUDY: X-RAY CHEST REASON FOR EXAM: Female, 80 years old. pain TECHNIQUE: Single AP portable view of the chest. COMPARISON: 09/23/2020 FINDINGS: The lungs are clear and expanded. There is no demonstrated pleural abnormality. There is moderate cardiac enlargement. Normal mediastinum and horacio. Normal visualized pulmonary arteries. Normal visualized aortic arch and descending thoracic aorta. Normal visualized thoracic spine. Normal visualized ribs, clavicles, and shoulders. There is no demonstrated abnormality of the visualized soft tissue structures of the upper abdomen. RAD/Chest 1 View (Portable) IMPRESSION: No active disease. Electronically Signed: Shane Henry MD at 10:16 EDT Tel , Service support ,
--- NOTE | 2020-11-16 09:29 | EX.ED.DYSGE1 ---
HPI History of Present Illness Chief Complaint: Other, Pain/Inj Detail of Chief Complaint: Right arm pain Informant: patient and spouse/S.O. Onset/Context/Timing Onset: Yesterday Context: Gradual Onset Timing: Waxes and wanes Current Severity: Moderate Maximum Severity: Severe Narrative Narrative: Patient presents secondary to right arm pain. She has chronic low back pain and currently on Percocet. She is scheduled to see pain management for the first time tomorrow. Patient states she developed right arm pain yesterday. Does seem to be worse with palpation and movement. She denies any recent injury. [facility] Medical History Anxiety Arthritis Back pain BiPAP (biphasic positive airway pressure) dependence Blood in stool Breast cancer, left breast Cancer Cardiology follow-up encounter Cellulitis of right lower extremity Chronic cough Chronic cough Chronic kidney disease Closed head injury Debility Depression Diabetes Diabetes mellitus type 2 in obese Diabetes mellitus, type II Dilated aortic root Dyspnea Easy bruising Epistaxis Essential (primary) hypertension Gait difficulty High cholesterol History of echocardiogram History of edema History of pain when walking History of pulmonary embolism History of steroid therapy Hoarseness Hx of cataract Hx of fracture of ankle Hypercoagulable state Hyperlipidemia Hypothyroidism Injury of back Insomnia Left ureteral stone Leg cramps Leg wound, left Lupus anticoagulant disorder Morbid obesity Non-smoker Obesity Obstructive sleep apnea YOLY (obstructive sleep apnea) Osteoarthritis Personal history of colonic polyps Pulmonary embolism Restless leg syndrome Shortness of breath on exertion Sleep apnea Thyroid disease Traumatic hematoma of right foot Traumatic ulcer of lower extremity Type 2 diabetes mellitus with diabetic polyneuropathy Wears glasses Wound of right foot Home Medications simvastatin 40 mg PO QHS 01/24/14 [History Last Taken 12/09/18 21:00] bupropion HCl [Wellbutrin XL] 150 mg PO DAILY 04/22/18 [History Last Taken 12/09/18 21:00] acetaminophen 1,000 mg PO Q6H PRN PRN tab 01/02/19 [Rx Last Taken Unknown] clonazepam 1 mg PO DAILY PRN PRN #14 tab 01/02/19 [Rx Last Taken Unknown] ergocalciferol (vitamin D2) 50,000 unit PO Q7D cap 01/02/19 [Rx Last Taken 07/05/19 08:00] tramadol 50 mg tablet 50 mg PO BID PRN 10/25/19 [History Last Taken Unknown] trazodone 150 mg tablet 150 mg PO DAILY tab 10/25/19 [History Last Taken Unknown] calcitriol 0.25 mcg PO DAILY 02/16/20 [History Last Taken Unknown] albuterol sulfate 90 mcg/actuation aerosol inhaler 2 puff INHALATION Q6H PRN 07/22/20 [History Last Taken 11/07/20] denosumab 60 mg/mL subcutaneous syringe 60 mg SUBCUT .Q6MO 07/22/20 [History Last Taken Unknown] montelukast 10 mg tablet 10 mg PO DAILY tab 07/22/20 [History Last Taken Unknown] oxybutynin chloride 10 mg tablet,extended release 24 hr 10 mg PO DAILY tab 07/22/20 [History Last Taken Unknown] prednisone 10 mg tablet 10 - 15 mg PO DAILY tab 07/22/20 [History Last Taken 11/07/20] furosemide 40 mg tablet 20 mg PO DAILY #90 tab 07/29/20 [Rx Last Taken Unknown] levothyroxine 125 mcg tablet 125 mcg PO DAILY 10/16/20 [History Last Taken 11/07/20] sitagliptin 100 mg tablet 100 mg PO DAILY 10/16/20 [History Last Taken Unknown] buprenorphine 1 patch TRANSDERMAL Q7D PRN 11/05/20 [History Last Taken Unknown] fluticasone furoate [Arnuity Ellipta] 1 inh INHALATION DAILY 11/05/20 [History Last Taken Unknown] lidocaine 1 patch TOPICAL PRN PRN 11/05/20 [History Last Taken Unknown] warfarin 3 mg PO DAILY 11/05/20 [History Last Taken 11/04/20] enoxaparin 120 mg SUBCUT Q12H 11/09/20 [History Last Taken Unknown] metformin 500 mg PO DAILY 11/09/20 [History Last Taken Unknown] oxycodone-acetaminophen 1 tab PO Q6H PRN 11/16/20 [History Last Taken Unknown] Allergy/AdvReac Type Severity Reaction Status Date / Time acetaminophen [From Vicodin] AdvReac Unknown Verified 11/16/20 09:19 ciprofloxacin [From Cipro] AdvReac chest pain Verified 11/16/20 09:19 codeine AdvReac Upset Verified 11/16/20 09:19 Stomach hydrocodone bitartrate AdvReac Upset Verified 11/16/20 09:19 [From Vicodin] Stomach Family History Mother CHF (congestive heart failure) Brother Diabetes Heart disease Myocardial infarction Father Myocardial infarction Heart disease Surgical History History of bronchoscopy History of bunionectomy History of cataract extraction History of hammer toe correction History of inferior vena caval filter placement History of left hip replacement History of lumpectomy History of lumpectomy of left breast History of open reduction and internal fixation (ORIF) procedure History of right hip replacement History of tonsillectomy History of total bilateral knee replacement History of total left knee replacement Hx of cholecystectomy Hx of cystoscopy Hx of local excision of skin lesion Hx of tubal ligation Social History Smoking Status: Never smoker ROS ROS ED Constitutional Constitutional ED: Denies chills or fever(s) Eyes Eyes: Denies change in vision ENT ENT ED: Denies sore throat Cardiovascular Cardiovascular: Denies chest pain Respiratory/Chest Respiratory/Chest: Denies cough or dyspnea Gastrointestinal Gastrointestinal: Denies abdominal pain, diarrhea, nausea or vomiting Genitourinary Genitourinary ED: Denies dysuria Musculoskeletal Musculoskeletal: Reports arthralgias, back pain and myalgias Integumentary Denies rash Neurologic Neurologic: Denies headache(s) or weakness Psychiatric Psychiatric: Denies anxiety or depression Endocrine Endocrinology: Denies polydipsia or polyuria Allergic/Immunologic Allergic/Immunologic ED: Denies urticaria EXAM Physical Exam Const Vital Signs: 11/16/20 09:12 11/16/20 09:45 11/16/20 11:41 Temperature 97 F L Temperature Source Oral Pulse Rate 88 Respiratory Rate 18 Respiratory Effort Normal Non-Labored Respiratory Pattern Normal Blood Pressure 166/98 H Blood Pressure Mean 120 Pulse Ox 96 95 Oxygen Delivery Method Room Air Room Air Oxygen Flow Rate (L/min) 11/16/20 12:45 11/16/20 12:50 11/16/20 13:42 Temperature Temperature Source Pulse Rate 81 Respiratory Rate 16 Respiratory Effort Respiratory Pattern Blood Pressure 143/84 H Blood Pressure Mean 103 Pulse Ox 88 98 98 Oxygen Delivery Method Room Air Nasal Cannula Room Air Oxygen Flow Rate (L/min) 2 Positive well nourished, well developed and obese General Appearance ED: well developed Nutritional Appearance: obese HEENT Reports normocephalic and head/scalp atraumatic Eyes PERRL and EOMs intact bilaterally Neck supple Chest Wall inspection of chest normal and palpation of chest normal Resp normal respiratory effort and clear to auscultation bilaterally Cardio regular rate and regular rhythm GI non-tender Palpation: soft Extremity Extremity Narrative: Muscular tenderness throughout the right upper arm and humeral head. Good range of motion. Ecchymosis is noted from recent blood pressure cuffs. Strong distal pulses and normal sensation. Neuro oriented x3 Sensorium / Orientation: alert Psych mental status grossly normal MDM MDM MDM Narrative Medical decision making narrative: Patient was ordered fentanyl and Zofran along with EKG and chest x-ray. With no improvement in her arm pain she was given a dose of morphine. At that time she had started to complain about pain radiating across her chest and up into the left side of her jaw. Full cardiac work-up was undertaken at that point. Lab Data Attestation: I reviewed the patient's lab results. Labs: Laboratory Results - last 24 hr 11/16/20 11/16/20 12:08 12:08 WBC 8.8 RBC 4.25 Hgb 12.2 Hct 38.9 MCV 91.5 MCH 28.7 MCHC 31.4 L RDW Std Deviation 50.4 H RDW Coeff of Mona 15.3 H Plt Count 156 MPV 9.1 Neut % (Auto) Not Reportable Absolute Neuts (auto) 7.4 Absolute Lymphs (auto) 0.70 L Total Counted 100 Neutrophils % (Manual) 82 H Band Neutrophils % 2 Lymphocytes % (Manual) 8 L Monocytes % (Manual) 6 Eosinophils % (Manual) 1 Myelocytes % 1 H Diff Path Review May foll Platelet Estimate ADEQUATE RBC Morphology NORM C+C Sodium 139 Potassium 3.7 Chloride 101 Carbon Dioxide 30.0 Anion Gap 8 BUN 21 H Creatinine 1.30 H Estim Creat Clear Calc 32.09 Est GFR (MDRD) Af Amer 51 L Est GFR (MDRD) Non-Af 42 L BUN/Creatinine Ratio 16.2 Glucose 173 H Calcium 8.7 Troponin I High Sens 12 Radiography Chest X-Ray - ED: 1 View, Read by ED Physician and Chronic Changes Diagnostic Testing: Radiology Impression Chest X-Ray 11/16/20 09:25 IMPRESSION: No active disease. Electronically Signed: Shane Henry MD at 10:16 EDT Tel , Service support , EKG Initial EKG: Attestation: I personally reviewed and interpreted this EKG as follows: Interpretation: Sinus Rhythm (Sinus at 76 with no acute ischemia.) Follow-up EKG: Attestation: I personally reviewed and interpreted this EKG as follows: Interpretation: Sinus Rhythm (Sinus at 76 with no acute ischemia.) Treatment and Re-Evaluation Comments:: Patient was ultimately given a dose of Dilaudid and Ativan for pain control. On repeat examination she is resting much more comfortably. She states that she can still feel pain across her chest but it is significantly improved. Her arm is still sore but she can move it better. I will speak with hospitalist regarding observation overnight for cycling of enzymes. Discharge Plan Dx/Rx/DC Orders Clinical Impression: Chest pain Disposition Disposition: Acute Care Hospital [facility] Discharge Date/Time: 11/16/20 14:59
[2020-11-16] MEDS: Ondansetron 4 MG/2 ML Vial IV (09:46)
[2020-11-16] MEDS: fentaNYL 100 MCG/2 ML Ampul 50 MCG IV (09:46)
--- NOTE | 2020-11-16 09:46 | EKG12_ITS ---
Test Reason : PAIN Blood Pressure : / mmHG Vent. Rate : 076 BPM Atrial Rate : 076 BPM P-R Int : 162 ms QRS Dur : 098 ms QT Int : 410 ms P-R-T Axes : 027 -13 008 degrees QTc Int : 461 ms Normal sinus rhythm Normal ECG Confirmed by DEBRA MEJIA, DANK ([id number]), restaurant expeditor KENNETH PAZ ([id number]) on 11/20/2020 10:39:17 AM Referred By: DAYSI Confirmed By:DANK RICHARDSON MD
--- NOTE | 2020-11-16 11:41 | EKG12_ITS ---
Test Reason : REPEAT CP Blood Pressure : / mmHG Vent. Rate : 076 BPM Atrial Rate : 076 BPM P-R Int : 170 ms QRS Dur : 088 ms QT Int : 416 ms P-R-T Axes : 038 -30 016 degrees QTc Int : 468 ms Normal sinus rhythm Left axis deviation Abnormal ECG Confirmed by DEBRA MEJIA, DANK ([id number]), film editor supervisor KENNETH PAZ ([id number]) on 11/20/2020 10:36:28 AM Referred By: DAYSI Confirmed By:DANK RICHARDSON MD
[2020-11-16] MEDS: Morphine 4 MG/ML Syringe IV (11:45)
[2020-11-16] MEDS: Aspirin 81 MG TAB.CHEW 324 MG PO (12:02)
[2020-11-16 12:22] LABS: Hematocrit 38.9 % (37-47); Hemoglobin 12.2 g/dL (12.0-15.0); Mean Corp Hgb Conc 31.4 g/dL (32-36); Mean Corpuscular Hgb 28.7 pg (27.0-32.0); Mean Corpuscular Volume 91.5 fL (81-99); Mean Platelet Vol. 9.1 fl (6.2-12.0); POSITIVE COUNT YES; POSITIVE MORPHOLOGY YES; Platelet Count 156 K/mm3 (150-450); RBC Distribution Width CV 15.3 % (11.6-14.6); RBC Distribution Width SD 50.4 fl (35.1-43.9); Red Blood Count 4.25 M/mm3 (4.2-5.4); White Blood Count 8.8 K/mm3 (4.4-11.0)
[2020-11-16 12:23] LABS: Differential Indicated MANUAL DIFF
[2020-11-16 12:38] LABS: Anion Gap 8 (5-15); BUN 21 mg/dL (7-18); BUN/Creat Ratio 16.2 RATIO (10-20); Calcium,Total 8.7 mg/dL (8.5-10.1); Chloride 101 mmol/L (98-107); EST Glomerular Filtration Rate 42 mL/min (>60); Est Glom Filt Rate - Afr Amer 51 mL/min (>60); Estimated Creatinine Clearance 32.09 ml/min; Glucose 173 mg/dL (74-106); Potassium 3.7 mmol/L (3.5-5.1); Sodium Level 139 mmol/L (136-145); Troponin-I HS 12 pg/mL (3.0-54.0)
[2020-11-16 12:43] LABS: Eosinophil 1 % (0-5); Lymphocyte 8 % (19-41); Monocyte 6 % (0-10); Myelocyte 1 % (0-0); Neutrophil-Band 2 % (0-5); Neutrophil-Segmented 82 % (47-70); Total Cells Counted 100 (MANUAL DIFF)
[2020-11-16 12:44] LABS: Absolute Neutrophil Count 7.4 X10^3/uL (2.0-7.7); Platelet Estimate ADEQUATE (ADEQ); Red Cell Morphology NORM C+C NORMAL (NORM C&C)
[2020-11-16] MEDS: HYDROmorphone 0.5 MG/0.5 ML SYRINGE IV (12:49)
[2020-11-16] MEDS: LORazepam 2 MG/ML Syringe 0.5 MG IV (12:49)
--- NOTE | 2020-11-16 14:15 | PCM.HP.STD ---
HPI - General HPI Narrative DULCE SANCHEZ, is a 80 F who presented to the emergency department [facility] on 11/16/2020 with right-sided neck/shoulder pain. She reported on arrival that this started yesterday and has been worsening since. It seemed to worsen with palpation and movement. The patient denies any recent injury. During her stay in the emergency department she developed pain that radiated from her right shoulder into her jaw and her left chest, after which a cardiac work-up was initiated. She does have significant risk factors for coronary artery disease no personal history and follows with Dr. Lama for cardiology. She had a recent echocardiogram in January 2020 that showed an EF of 65% a mildly dilated aortic root, and stage I diastolic dysfunction. She was treated with pain medication with regards to her right-sided shoulder pain. In the emergency department her vital signs were stable. Her oxygen saturation was 98% on room air. Her lab work was overall unremarkable with a normal CBC. Her BMP shows stable CKD and her serum blood sugar was 173. Chest x-ray was performed and shows no acute processes. Her initial high-sensitivity troponin was 12. Her EKG showed poor R wave progression but no ST-T wave abnormalities. She will be admitted to PCU with cycling of her cardiac enzymes and probable stress test in the morning. COUNT INCLUDES THE [facility] Medical History Anxiety Arthritis Back pain BiPAP (biphasic positive airway pressure) dependence Blood in stool Breast cancer, left breast Cancer Cardiology follow-up encounter Cellulitis of right lower extremity Chronic cough Chronic cough Chronic kidney disease Closed head injury Debility Depression Diabetes Diabetes mellitus type 2 in obese Diabetes mellitus, type II Dilated aortic root Dyspnea Easy bruising Epistaxis Essential (primary) hypertension Gait difficulty High cholesterol History of echocardiogram History of edema History of pain when walking History of pulmonary embolism History of steroid therapy Hoarseness Hx of cataract Hx of fracture of ankle Hypercoagulable state Hyperlipidemia Hypothyroidism Injury of back Insomnia Left ureteral stone Leg cramps Leg wound, left Lupus anticoagulant disorder Morbid obesity Non-smoker Obesity Obstructive sleep apnea YOLY (obstructive sleep apnea) Osteoarthritis Personal history of colonic polyps Pulmonary embolism Restless leg syndrome Shortness of breath on exertion Sleep apnea Thyroid disease Traumatic hematoma of right foot Traumatic ulcer of lower extremity Type 2 diabetes mellitus with diabetic polyneuropathy Wears glasses Wound of right foot Home Medications simvastatin 40 mg PO QHS 01/24/14 [History Last Taken 12/09/18 21:00] bupropion HCl [Wellbutrin XL] 150 mg PO DAILY 04/22/18 [History Last Taken 12/09/18 21:00] acetaminophen 1,000 mg PO Q6H PRN PRN tab 01/02/19 [Rx Last Taken Unknown] clonazepam 1 mg PO DAILY PRN PRN #14 tab 01/02/19 [Rx Last Taken Unknown] ergocalciferol (vitamin D2) 50,000 unit PO Q7D cap 01/02/19 [Rx Last Taken 07/05/19 08:00] tramadol 50 mg tablet 50 mg PO BID PRN 10/25/19 [History Last Taken Unknown] trazodone 150 mg tablet 150 mg PO DAILY tab 10/25/19 [History Last Taken Unknown] calcitriol 0.25 mcg PO DAILY 02/16/20 [History Last Taken Unknown] albuterol sulfate 90 mcg/actuation aerosol inhaler 2 puff INHALATION Q6H PRN 07/22/20 [History Last Taken 11/07/20] denosumab 60 mg/mL subcutaneous syringe 60 mg SUBCUT .Q6MO 07/22/20 [History Last Taken Unknown] montelukast 10 mg tablet 10 mg PO DAILY tab 07/22/20 [History Last Taken Unknown] oxybutynin chloride 10 mg tablet,extended release 24 hr 10 mg PO DAILY tab 07/22/20 [History Last Taken Unknown] prednisone 10 mg tablet 10 - 15 mg PO DAILY tab 07/22/20 [History Last Taken 11/07/20] furosemide 40 mg tablet 20 mg PO DAILY #90 tab 07/29/20 [Rx Last Taken Unknown] levothyroxine 125 mcg tablet 125 mcg PO DAILY 10/16/20 [History Last Taken 11/07/20] sitagliptin 100 mg tablet 100 mg PO DAILY 10/16/20 [History Last Taken Unknown] buprenorphine 1 patch TRANSDERMAL Q7D PRN 11/05/20 [History Last Taken Unknown] fluticasone furoate [Arnuity Ellipta] 1 inh INHALATION DAILY 11/05/20 [History Last Taken Unknown] lidocaine 1 patch TOPICAL PRN PRN 11/05/20 [History Last Taken Unknown] warfarin 3 mg PO DAILY 11/05/20 [History Last Taken 11/04/20] enoxaparin 120 mg SUBCUT Q12H 11/09/20 [History Last Taken Unknown] metformin 500 mg PO DAILY 11/09/20 [History Last Taken Unknown] oxycodone-acetaminophen 1 tab PO Q6H PRN 11/16/20 [History Last Taken Unknown] Allergy/AdvReac Type Severity Reaction Status Date / Time acetaminophen [From Vicodin] AdvReac Unknown Verified 11/16/20 09:19 ciprofloxacin [From Cipro] AdvReac chest pain Verified 11/16/20 09:19 codeine AdvReac Upset Verified 11/16/20 09:19 Stomach hydrocodone bitartrate AdvReac Upset Verified 11/16/20 09:19 [From Vicodin] Stomach Family History Mother CHF (congestive heart failure) Brother Diabetes Heart disease Myocardial infarction Father Myocardial infarction Heart disease Surgical History History of bronchoscopy History of bunionectomy History of cataract extraction History of hammer toe correction History of inferior vena caval filter placement History of left hip replacement History of lumpectomy History of lumpectomy of left breast History of open reduction and internal fixation (ORIF) procedure History of right hip replacement History of tonsillectomy History of total bilateral knee replacement History of total left knee replacement Hx of cholecystectomy Hx of cystoscopy Hx of local excision of skin lesion Hx of tubal ligation Social History Smoking Status: Never smoker ROS Constitutional Constitutional: Denies anorexia, change in weight, chills, fatigue, fever(s), malaise, night sweats, weakness or other Eyes Eyes: Denies blurry vision, change in eye color, change in vision, discharge from eye(s), double vision, erythema, eye pain, loss of vision or other ENT HEENT: Denies abnormal hearing, dysphagia, ear pain, epistaxis, headache(s), hearing loss, nasal congestion, nasal discharge, post nasal drip, sinus pressure, sore throat or other Cardiovascular Cardiovascular: Reports chest pain and edema; Denies claudication, dyspnea on exertion, lightheadedness, orthopnea, palpitations, paroxysmal nocturnal dyspnea, rapid heart rate, syncope or other Respiratory/Chest Respiratory/Chest: Denies cough, dyspnea, excessive phlegm production, hemoptysis, productive cough, shortness of breath at rest, shortness of breath with exertion, wheezing or other Gastrointestinal Gastrointestinal: Denies abdominal pain, coffee ground emesis, constipation, diarrhea, dyspepsia, hematemesis, hematochezia, loose stools, melena, nausea, vomiting or other Genitourinary Genitourinary: Denies burning urination, difficulty urinating, dysuria, hematuria, nocturia, urinary frequency, urinary hesitancy, urinary incontinence, urinary urgency or other Musculoskeletal Musculoskeletal: Reports arthralgias, back pain, joint pain, joint stiffness and neck pain; Denies joint swelling, myalgias or other Neurologic Neurologic: Denies abnormal gait, abnormal speech, confusion, disequilibrium, dizziness, focal weakness, headache(s), numbness, paresthesias, seizure-like activity, seizures, syncope, tingling, tremor(s) or other Psychiatric Psychiatric: Reports anxiety and depression; Denies homicidal ideation, suicidal ideation or other Endocrine Endocrinology: Denies change in body appearance, cold intolerance, excessive sweating, heat intolerance, polydipsia, polyuria or other Hematologic/Lymphatic Hematologic/Lymphatic: Reports easy bleeding and easy bruising; Denies anemia, lymphadenopathy or other Allergic/Immunologic Allergic/Immunologic: Denies rhinitis, hives, eczemia, asthma or other Vital Signs Vital Signs Vital Signs: 11/16/20 09:12 11/16/20 09:45 11/16/20 11:41 Temperature 97 F L Temperature Source Oral Pulse Rate 88 Respiratory Rate 18 Respiratory Effort Normal Non-Labored Respiratory Pattern Normal Blood Pressure 166/98 H Blood Pressure Mean 120 Pulse Ox 96 95 Oxygen Delivery Method Room Air Room Air Oxygen Flow Rate (L/min) 11/16/20 12:45 11/16/20 12:50 11/16/20 13:42 Temperature Temperature Source Pulse Rate 81 Respiratory Rate 16 Respiratory Effort Respiratory Pattern Blood Pressure 143/84 H Blood Pressure Mean 103 Pulse Ox 88 98 98 Oxygen Delivery Method Room Air Nasal Cannula Room Air Oxygen Flow Rate (L/min) 2 Weight Weight: 116.6 kg Body Mass Index (BMI) 42.1 Physical Exam Const alert, oriented x3 and no apparent distress Constitutional Narrative: Morbidly obese elderly white female who appears older than stated age, lying in bed, currently appears comfortable, sleeping upon my arrival but awakens easily, at bedside General Appearance: cooperative HEENT normocephalic, head/scalp atraumatic and moist oral mucous membranes HEENT Narrative: Fair dentition, Mallampati 3, no thrush Eyes PERRL, EOMs intact bilaterally and conjunctivae normal Neck no lymphadenopathy, supple and no JVD Neck Narrative: Trachea midline, no thyromegaly or nodules noted Resp normal respiratory effort, no retractions, no use of accessory muscles and clear to auscultation bilaterally Auscultation: Negative for crackles, rales, rhonchi or wheezes Cardio regular rate, regular rhythm, S1 normal heart sound, S2 normal heart sound, no murmurs, no rub, no gallops, no clicks and no JVD GI normal to inspection, nondistended, normoactive bowel sounds, soft to palpation, non-tender and non-distended Extremity Extremity Narrative: Bilateral lower extremity pitting edema left greater than right- indicates some of this is chronic, no clubbing or cyanosis, cap refill 2+ Peripheral Pulses: Yes pulses 2+ throughout Skin skin turgor normal, no jaundice, no petechiae and no mottling Skin Narrative: Bilateral lower extremity wounds consistent with venous stasis, right lower extremity is wrapped in an Unna boot Neuro oriented x3, CN's II-XII intact bilaterally, moves all extremities and no focal motor deficits Sensorium / Orientation: awake, alert, oriented to person, oriented to place and oriented to time Speech: speech normal Psych Mood & Affect: anxious Results Lab / Micro Data Result Diagrams: 11/16/20 12:08 11/16/20 12:08 Labs: Laboratory Results - last 24 hr 11/16/20 12:08: WBC 8.8, RBC 4.25, Hgb 12.2, Hct 38.9, MCV 91.5, MCH 28.7, MCHC 31.4 L, RDW Std Deviation 50.4 H, RDW Coeff of Mona 15.3 H, Plt Count 156, MPV 9.1, Neut % (Auto) Not Reportable, Absolute Neuts (auto) 7.4, Absolute Lymphs (auto) 0.70 L, Total Counted 100, Neutrophils % (Manual) 82 H, Band Neutrophils % 2, Lymphocytes % (Manual) 8 L, Monocytes % (Manual) 6, Eosinophils % (Manual) 1, Myelocytes % 1 H, Diff Path Review May foll, Platelet Estimate ADEQUATE, RBC Morphology NORM C+C 11/16/20 12:08: Sodium 139, Potassium 3.7, Chloride 101, Carbon Dioxide 30.0, Anion Gap 8, BUN 21 H, Creatinine 1.30 H, Estim Creat Clear Calc 32.09, Est GFR (MDRD) Af Amer 51 L, Est GFR (MDRD) Non-Af 42 L, BUN/Creatinine Ratio 16.2, Glucose 173 H, Calcium 8.7, Troponin I High Sens 12 Radiology Impression Chest X-Ray 11/16/20 09:25 IMPRESSION: No active disease. Electronically Signed: Shane Henry MD at 10:16 EDT Tel , Service support , Assessment & Plan Assessment/Plan (1) Chest pain: PLAN: Chest pain -Low risk for PE given use of Lovenox and Coumadin -History of thoracic aneurysm at 4.2 cm -Check stat CTA of the chest to rule out dissection -Cycle cardiac enzymes -EKG on admission shows normal sinus rhythm with poor R wave progression but no acute ST-T wave changes consistent with ischemia -If cardiac enzymes remain negative stress test in a.m.--> pharmacological -Aspirin full dose given in the emergency department -Continue aspirin 81 mg daily -Continue home simvastatin -Check a.m. 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 Cruz tomorrow at 10 AM--> encouraged family to reschedule -PT/OT consultation for mobility assessment -Patient may need placement depending on overall function YOLY -Continue home CPAP - bring in unit Morbid obesity -Recommend weight loss -BMI 42.1 -Effects overall treatment, prognosis, and outcomes Remote history of breast cancer -Currently stable DVT prophylaxis -Continue full dosing with Lovenox and Coumadin CODE STATUS -DNR CCA no intubation per discussion with patient and in the emergency department Charges/Coding Visit Charges Inpatient E&M: 49983 Init Hosp L3
--- NOTE | 2020-11-16 14:19 | CT_ITS ---
We are attempting to reach an attending provider to discuss findings. An addendum with communication details will be sent when the communication is complete. EXAM: CT ANGIOGRAPHY CHEST WITHOUT AND WITH INTRAVENOUS CONTRAST : 1940 CLINICAL INDICATION: chest pain TECHNIQUE: Helically acquired angiography images were obtained of the chest without and with intravenous contrast. This CT exam was performed using one or more of the following dose reduction techniques: automated exposure control, adjustment of the mA and/or kV according to patient size, and/or use of iterative reconstruction technique. This report was created using [employer] report generation technology. MIP reconstructed images were created and reviewed. CONTRAST: IV 100mL Isovue-370 COMPARISON: 09/23/2020 FINDINGS: PULMONARY ARTERIES: Unremarkable. Normal in caliber. No evidence of pulmonary embolism. AORTA: There is a dissection of the ascending and descending thoracic aorta which originates at the aortic root and extends down into the upper abdomen. GREAT VESSELS OF AORTIC ARCH: Unremarkable. Normal in caliber. No evidence of dissection. OTHER ARTERIES: The carotid arteries originate off of the true lumen. The dissection does not extend up into the neck. LUNGS AND PLEURAL SPACES: There is minimal scarring and atelectasis in the left lung base. No mass. No pleural effusion or thickening. No pneumothorax. HEART: See above. MEDIASTINUM: Unremarkable. No mediastinal or hilar adenopathy. Esophagus is unremarkable. No hiatal hernia. THYROID: Unremarkable. No thyroid lesions. BONES/JOINTS: Unremarkable. No suspicious lytic or blastic abnormality. CT/CTA Chest W/WO Contrast IMPRESSION: 1. 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 There is no aneurysm identified. The carotid vessels arise off of the true lumen. This was not present on the previous examination. 2. No evidence of pulmonary embolus. Individualized dose optimization techniques were used for this CT. at 1553 Reported and signed by: Vinicius Gallagher MD Electronically Signed: Vinicius Gallagher MD at 15:52 EDT Tel , Service support ,
[2020-11-16 15:04] LABS: International Normalized Ratio 2.4; Prothrombin Time (Protime)PT. 25.6 SECONDS (11.7-14.9)
[2020-11-16 15:51] LABS: Bedside Glucose 157 mg/dL (70-110)
[2020-11-16] MEDS: Esmolol 2,500 MG/250 ML IV.SOLN. 33.5 MG CONT INF (16:13)
--- NOTE | 2020-11-16 16:15 | NURSING ---
patient arrived to ICU from PCU at this time, placed on ICU monitor stat. Pharmacy called to inform of needing kcentra, vit k, and esmolol stat.
--- NOTE | 2020-11-16 16:19 | NURSING ---
patient transfered to ICU with MD at bedside. bedside report provided at time of discharge. at bedside at time of transfer.
--- NOTE | 2020-11-16 16:36 | PCM.DC.SUM ---
Providers Date of Admission: 11/16/20 Primary Care Physician: Dr. Ai Anguiano MD Consultations 11/16/20 15:27 Consult: Onc/Wound/rod mill tender Routine Comment: Reason for Consult:: B LE wounds Reason For Visit: CHEST PAIN Diagnosis Discharge Diagnosis (1) Chest pain: Status: Acute Code(s): R07.9 - Chest pain, unspecified Medications at Discharge Home Medications simvastatin 40 mg PO QHS 01/24/14 bupropion HCl [Wellbutrin XL] 150 mg PO DAILY 04/22/18 acetaminophen 1,000 mg PO Q6H PRN PRN tab 01/02/19 clonazepam 1 mg PO DAILY PRN PRN #14 tab 01/02/19 ergocalciferol (vitamin D2) 50,000 unit PO Q7D cap 01/02/19 tramadol 50 mg tablet 50 mg PO BID PRN 10/25/19 trazodone 150 mg tablet 150 mg PO DAILY tab 10/25/19 calcitriol 0.25 mcg PO DAILY 02/16/20 albuterol sulfate 90 mcg/actuation aerosol inhaler 2 puff INHALATION Q6H PRN 07/22/20 denosumab 60 mg/mL subcutaneous syringe 60 mg SUBCUT .Q6MO 07/22/20 montelukast 10 mg tablet 10 mg PO DAILY tab 07/22/20 oxybutynin chloride 10 mg tablet,extended release 24 hr 10 mg PO DAILY tab 07/22/20 prednisone 10 mg tablet 10 - 15 mg PO DAILY tab 07/22/20 furosemide 40 mg tablet 20 mg PO DAILY #90 tab 07/29/20 levothyroxine 125 mcg tablet 125 mcg PO DAILY 10/16/20 sitagliptin 100 mg tablet 100 mg PO DAILY 10/16/20 buprenorphine 1 patch TRANSDERMAL Q7D PRN 11/05/20 fluticasone furoate [Arnuity Ellipta] 1 inh INHALATION DAILY 11/05/20 lidocaine 1 patch TOPICAL PRN PRN 11/05/20 warfarin 3 mg PO DAILY 11/05/20 enoxaparin 120 mg SUBCUT Q12H 11/09/20 metformin 500 mg PO DAILY 11/09/20 oxycodone-acetaminophen 1 tab PO Q6H PRN 11/16/20 Hospital Course Operations None Procedures None Summary of Care Provided Minutes Spent on Discharge: 20 Hospital Course: DULCE SANCHEZ, is a 80 F who presented to the emergency department [facility] on 11/16/2020 with right-sided neck/shoulder pain. She reported on arrival that this started yesterday and has been worsening since. It seemed to worsen with palpation and movement. The patient denies any recent injury. During her stay in the emergency department she developed pain that radiated from her right shoulder into her jaw and her left chest, after which a cardiac work-up was initiated. She does have significant risk factors for coronary artery disease no personal history and follows with Dr. Lama for cardiology. She had a recent echocardiogram in January 2020 that showed an EF of 65% a mildly dilated aortic root at 4.2 cm with mild aortic insufficiency, and stage I diastolic dysfunction. She was treated with pain medication with regards to her right-sided shoulder pain. In the emergency department her vital signs were stable. Her oxygen saturation was 98% on room air. Her lab work was overall unremarkable with a normal CBC. Her BMP shows stable CKD and her serum blood sugar was 173. Chest x-ray was performed and shows no acute processes. Her initial high-sensitivity troponin was 12. Her EKG showed poor R wave progression but no ST-T wave abnormalities. Her INR was 2.4. Given her history of dilated aortic root and current chest pain a CTA of her chest was obtained stat and showed a [place] type a dissection with no noted dissection into feeding vessels. The diagnosis was discussed with the patient she was emergently transferred to the ICU where Kcentra, vitamin K 10 mg x 1 dose IV, and an esmolol drip were initiated. She was then transferred emergently to [facility] for surgery. She remained hemodynamically stable. When we discussed surgery with the patient she was desiring to proceed with this at this time. Discharge diagnoses: Acute type a aortic dissection Chest pain CKD stage IIIa Hypertension Hyperlipidemia Chronic venous stasis Bilateral lower extremity wounds Hypothyroidism DM-2 History of DVT/PE Lupus anticoagulant disorder History of left breast cancer Chronic pain Weight / BMI Weight Weight: 111.811 kg Body Mass Index (BMI) 40.4 ABG / Lab / Microbiology Data Result Diagrams: 11/16/20 12:08 11/16/20 12:08 Laboratory: Laboratory Results - last 24 hr 11/16/20 12:08: WBC 8.8, RBC 4.25, Hgb 12.2, Hct 38.9, MCV 91.5, MCH 28.7, MCHC 31.4 L, RDW Std Deviation 50.4 H, RDW Coeff of Mona 15.3 H, Plt Count 156, MPV 9.1, Neut % (Auto) Not Reportable, Absolute Neuts (auto) 7.4, Absolute Lymphs (auto) 0.70 L, Total Counted 100, Neutrophils % (Manual) 82 H, Band Neutrophils % 2, Lymphocytes % (Manual) 8 L, Monocytes % (Manual) 6, Eosinophils % (Manual) 1, Myelocytes % 1 H, Diff Path Review July, Platelet Estimate ADEQUATE, RBC Morphology NORM C+C 11/16/20 12:08: Sodium 139, Potassium 3.7, Chloride 101, Carbon Dioxide 30.0, Anion Gap 8, BUN 21 H, Creatinine 1.30 H, Estim Creat Clear Calc 32.09, Est GFR (MDRD) Af Amer 51 L, Est GFR (MDRD) Non-Af 42 L, BUN/Creatinine Ratio 16.2, Glucose 173 H, Calcium 8.7, Troponin I High Sens 12 11/16/20 14:47: PT 25.6 H, INR 2.4 11/16/20 15:44: POC Glucose 157 H Microbiology: Microbiology 11/16/20 14:45 Mucosa - Nose SARS-CoV-2 Antigen (Rapid) - Final Radiography Diagnostic Testing: Radiology Impression Chest X-Ray 11/16/20 09:25 IMPRESSION: No active disease. Electronically Signed: Shane Henry MD at 10:16 EDT Tel , Service support , Chest CTA 11/16/20 14:19 IMPRESSION: 1. 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 There is no aneurysm identified. The carotid vessels arise off of the true lumen. This was not present on the previous examination. 2. No evidence of pulmonary embolus. Individualized dose optimization techniques were used for this CT. at 1553 Reported and signed by: Vinicius Gallagher MD Electronically Signed: Vinicius Gallagher MD at 15:52 EDT Tel , Service support , Meaningful Use Info Meaningful Use Diagnoses (Choose all that apply): None applicable Discharge Plan Admission Admit Date/Time: 11/16/20 13:50 Primary Reason for Your Visit: Chest pain Attending Provider: Krystal Kearney Primary Care Provider: Ai Anguiano Discharge Orders/Prescriptions Prescriptions: No Action trazodone 150 mg tablet 150 mg PO DAILY RF: 0 tramadol 50 mg tablet 50 mg PO BID PRN (Reason: Pain 1-10 Or Fever) RF: 0 Januvia 100 mg tablet 100 mg PO DAILY RF: 0 levothyroxine 125 mcg tablet 125 mcg PO DAILY RF: 0 albuterol sulfate 90 mcg/actuation HFA aerosol inhaler 2 puff inhalation Q6H PRN (Reason: Shortness Of Breath) RF: 0 Prolia 60 mg/mL syringe 60 mg subcut .Q6MO RF: 0 montelukast 10 mg tablet 10 mg PO DAILY RF: 0 oxybutynin chloride 10 mg tablet extended release 24hr 10 mg PO DAILY RF: 0 prednisone 10 mg tablet 10 - 15 mg PO DAILY RF: 0 simvastatin 40 MG tablet 40 mg PO QHS RF: 0 bupropion HCl [Wellbutrin XL] 150 MG tablet extended release 24 hr 150 mg PO DAILY RF: 0 acetaminophen 500 MG tablet 1,000 mg PO Q6H PRN PRN (Reason: Pain) RF: 0 ergocalciferol (vitamin D2) 50,000 UNIT capsule 50,000 unit PO Q7D RF: 0 clonazepam 1 MG tablet 1 mg PO DAILY PRN PRN (Reason: restless leg syndrome) Qty: 14 RF: 0 calcitriol 0.25 MCG capsule 0.25 mcg PO DAILY RF: 0 lidocaine 5 % adhesive patch,medicated 1 patch topical PRN PRN (Reason: Pain) RF: 0 buprenorphine 5 mcg/hour Patch Weekly 1 patch TRANSDERMAL Q7D PRN (Reason: Pain) RF: 0 Arnuity Ellipta 200 mcg/actuation Blister With Device 1 inh INHALATION DAILY RF: 0 warfarin 3 MG tablet 3 mg PO DAILY RF: 0 metformin 500 mg Tablet 500 mg PO DAILY RF: 0 enoxaparin 120 mg/0.8 mL Syringe 120 mg SUBCUT Q12H RF: 0 oxycodone-acetaminophen 5-325 mg Tablet 1 tab PO Q6H PRN (Reason: Pain (Scale Score 4-6)) RF: 0 furosemide [Lasix] 40 mg tablet 20 mg PO DAILY Qty: 90 RF: 3 Referrals / Follow Up: Ai Anguiano MD [Primary Care Provider] - Disposition Disposition (needs filled in before D/C Order can be placed): [facility]
[2020-11-16 16:50] LABS: Troponin-I HS 14 pg/mL (3.0-54.0)
--- NOTE | 2020-11-16 17:10 | NURSING ---
patient placed on [facility] monitor, arterial line placed at bedside via [facility]ef[employer] staff, transferred on to [facility], transported to [facility] via [facility]
--- NOTE | 2020-11-16 17:12 | NURSING ---
report called to SPARKLE Urbano at [facility] at this time.
[2020-11-17 13:06] LABS: Pathologist Review Reviewed
== END 2020-11-16 17:10 | disposition short-term general hospital (02) ==
LOC: ED 13:54 → PCU 14:38 → ICU 16:21
PROVIDERS: Admitting Provider Internal Medicine; Emergency Provider Emergency Medicine; PCP Internal Medicine; Visit Provider Internal Medicine
DX: M79.601 Pain in right arm (principal); R07.89 Other chest pain; M25.511 Pain in right shoulder; E11.22 Type 2 diabetes mellitus with diabetic chronic kidney disease; G89.29 Other chronic pain; M19.90 Unspecified osteoarthritis, unspecified site; F41.9 Anxiety disorder, unspecified; I12.9 Hypertensive chronic kidney disease with stage 1 through stage 4 chronic kidney disease, or unspecified chronic kidney disease; N18.31 Chronic kidney disease, stage 3a; E78.5 Hyperlipidemia, unspecified; E66.01 Morbid (severe) obesity due to excess calories; G47.33 Obstructive sleep apnea (adult) (pediatric); F32.9 Major depressive disorder, single episode, unspecified; Z68.41 Body mass index [BMI] 40.0-44.9, adult; G25.81 Restless legs syndrome; I71.2 Thoracic aortic aneurysm, without rupture; E03.9 Hypothyroidism, unspecified; E11.42 Type 2 diabetes mellitus with diabetic polyneuropathy; D68.62 Lupus anticoagulant syndrome; Z79.899 Other long term (current) drug therapy; Z79.01 Long term (current) use of anticoagulants; Z79.84 Long term (current) use of oral hypoglycemic drugs; Z79.51 Long term (current) use of inhaled steroids; Z86.711 Personal history of pulmonary embolism; Z86.718 Personal history of other venous thrombosis and embolism; Z66 Do not resuscitate
CPT/HCPCS: 71045; 71275; 80048; 82962; 84484; 85025; 85610; 87426; 93005; 96365; 96368; 96375; 99285; J7168; Q9967; A4216; J2405; J3490